=== PATIENT | male | born 1940 | race African-American/Black ===

== ENCOUNTER 2018-01-14 11:42 | Emergency (ER) | payer OTHER ==
--- NOTE | 2018-01-14 14:38 | RAD REPORT ---
EXAM DESCRIPTION: RAD - ENTEROSTOMY TUBE CHECK W/CONTR - 01/14/2018 2:06 pm CLINICAL HISTORY: Infectious/inflammation of PEG tube ostomy site, dislodged PEG tube COMPARISON: [facility] January 2017 TECHNIQUE: Supine abdomen films were obtained prior to and following repositioning of a PEG tube and retro grade injection of Gastrografin contrast material. FINDINGS: The 2 images show repositioning of the PEG tube. Following contrast injection, balloon tip of the PEG tube is in the body of the stomach. All injected contrast remains within the lumen of the stomach or proximal small bowel. IMPRESSION: Repositioning of PEG tube in good position. No leakage of the contrast.
--- NOTE | 2018-01-14 14:47 | EDPHYS ---
Physician Documentation [facility] Name: Leonardo Kumari Age: 77 yrs Sex: Male : 1940 Arrival Date: 01/14/2018 Time: 11:41 Bed 3 Private MD: ED Physician Surinder Salcedo HPI: 01/14 13:30 This 77 yrs old Black Male presents to ER via EMS with complaints of pulled PEG tube. pm1 13:30 Onset: The symptoms/episode began/occurred just prior to arrival. Associated signs and pm1 symptoms: Pertinent negatives: abdominal pain, chest pain, diarrhea, fever, shortness of breath, vomiting. The patient has experienced similar episodes in the past, multiple times. Patient accidentally pulled out his PEG tube. Ledesma catheter placed in stoma prior to arrival. Historical: - Allergies: :45 Stadol; hj :45 Versed; hj - Home Meds: 11:45 acetaminophen 650 mg Rectal supp 1 suppository every 4 hours PRN [Active]; albuterol hj sulfate 2.5 mg/0.5 mL Inhl nebu 0.5 mL every 4 hours PRN [Active]; amlodipine 5 mg tab 1 tab once daily [Active]; Aspir-81 81 mg Oral TbEC 1 tab once daily [Active]; atorvastatin 80 mg Oral tab 1 tab once daily [Active]; carvedilol 25 mg Oral tab 1 tab nightly [Active]; clopidogrel 75 mg Oral tab 1 tab once daily [Active]; Colace 100 mg Oral cap 1 cap once daily [Active]; Flexeril 10 mg Oral tab q12h prn [Active]; clonidine patch 0.2 mg transdermally every monday. Hold if SBP <100 and/or DBP <60 [Active]; clonidine HCl 0.2 mg Oral tab 1 tab 2 times per day [Active]; hydralazine 25 mg Oral tab 1 tab every 8 hours [Active]; tramadol 50 mg Oral tab 1 tab every 6 hours [Active]; multivitamin with minerals Oral 5 mL daily [Active]; Robafen 100 mg/5 mL Oral liqd 10 mL every 6 hours [Active]; - PMHx: 11:45 Allergic rhinitis; Aphasia; Dementia; Depression; Diabetes - NIDDM; DYSPHAGIA; GERD; hj High Cholesterol; Hypertension; MRSA; Paraplegia; UTI; - PSHx: 11:45 Unable to obtain; hj - Immunization history:: Adult Immunizations up to date. - Social history:: Smoking status: Patient/guardian denies using tobacco, Patient/guardian denies using alcohol. - Ebola Screening: : Patient negative for fever greater than or equal to 101.5 degrees Fahrenheit, and additional compatible Ebola Virus Disease symptoms Patient denies exposure to infectious person Patient denies travel to an Ebola-affected area in the 21 days before illness onset. ROS: 13:30 Constitutional: Negative for fever, chills, and weight loss, Eyes: Negative for injury, pm1 pain, redness, and discharge, ENT: Negative for injury, pain, and discharge, Neck: Negative for injury, pain, and swelling, Cardiovascular: Negative for chest pain, palpitations, and edema, Respiratory: Negative for shortness of breath, cough, wheezing, and pleuritic chest pain, Abdomen/GI: Negative for abdominal pain, nausea, vomiting, diarrhea, and constipation, Back: Negative for injury and pain, MS/Extremity: Negative for injury and deformity, Skin: Negative for injury, rash, and discoloration, Neuro: Negative for headache, weakness, numbness, tingling, and seizure. 13:30 Unable to obtain ROS due to baseline dementia. Exam: 13:30 Constitutional: This is a well developed, well nourished patient who is awake, alert, pm1 and in no acute distress. Head/Face: Normocephalic, atraumatic. Chest/axilla: Normal chest wall appearance and motion. Nontender with no deformity. No lesions are appreciated. Cardiovascular: Regular rate and rhythm with a normal S1 and S2. No gallops, murmurs, or rubs. No pulse deficits. Respiratory: Lungs have equal breath sounds bilaterally, clear to auscultation and percussion. No rales, rhonchi or wheezes noted. No increased work of breathing, no retractions or nasal flaring. Abdomen/GI: Soft, non-tender, with normal bowel sounds. No distension or tympany. No guarding or rebound. No evidence of tenderness throughout. Back: No spinal tenderness. No costovertebral tenderness. Full range of motion. Skin: Warm, dry with normal turgor. Normal color with no rashes, no lesions, and no evidence of cellulitis. 13:30 Musculoskeletal/extremity: Extremities: grossly normal except: the patient is contracted, in the bilateral lower extremities. Vital Signs: 11:48 BP 134 / 61; Pulse 81; Resp 18; Temp 98.3(O); Pulse Ox 96% on R/A; Weight 72.57 kg; hj Height 5 ft. 8 in. (172.72 cm); Pain 0/10; 11:48 Body Mass Index 24.33 (72.57 kg, 172.72 cm) Procedures: 13:30 G-tube placement: a 26 Syriac catheter was placed, by the ED physician, Maximo Oliva pm1 PROCUREMENT MANAGER Patient tolerated the procedure well. MDM: 11:55 Patient medically screened. pm1 14:43 Data reviewed: vital signs. Data interpreted: Pulse oximetry: on room air is 96 %. pm1 Interpretation: normal. Counseling: I had a detailed discussion with the patient and/or guardian regarding: the historical points, exam findings, and any diagnostic results supporting the discharge/admit diagnosis, radiology results, the need for outpatient follow up, to return to the emergency department if symptoms worsen or persist or if there are any questions or concerns that arise at home. 01/14 13:39 Order name: ENTEROSTOMY TUBE CHECK W/CONTR; Complete Time: 15:01 EDMS Administered Medications: No medications were administered Disposition: 01/15 16:14 Co-signature as Attending Physician, Surinder Salcedo MD I agree with the assessment and madisyn plan of care. Disposition: 01/14/18 14:46 Discharged to Home. Impression: Encounter for fitting and adjustment of other gastrointestinal appliance and device. - Condition is Stable. - Discharge Instructions: PEG, Home Care, [id number]. - Medication Reconciliation Form, Thank You Letter form. - Follow up: Emergency Department; When: As needed; Reason: Worsening of condition. Follow up: Private Physician; When: 2 - 3 days; Reason: Recheck today's complaints, Continuance of care, Re-evaluation by your physician. - Problem is new. - Symptoms have improved. Signatures: Dispatcher [employer] EDPA Surinder Salcedo MD MD cha Joaquin, Henry RN RN Maximo Roman NP PROCUREMENT MANAGER pm1 Corrections: (The following items were deleted from the chart) 01/14 13:39 13:14 Abdomen 1 View (KUB)+RAD.RAD.BRZ ordered. [facility] EDMS 17:24 14:46 01/14/2018 14:46 Discharged to Home. Impression: Encounter for fitting and hj adjustment of other gastrointestinal appliance and device. Condition is Stable. Forms are Medication Reconciliation Form, Thank You Letter, Antibiotic Education, Prescription Opioid Use. Follow up: Emergency Department; When: As needed; Reason: Worsening of condition. Follow up: Private Physician; When: 2 - 3 days; Reason: Recheck today's complaints, Continuance of care, Re-evaluation by your physician. Problem is new. Symptoms have improved. pm1
--- NOTE | 2018-01-14 14:47 | ER ---
Nurse's Notes [facility] Name: Leonardo Kumari Age: 77 yrs Sex: Male : 1940 Arrival Date: 01/14/2018 Time: 11:41 Bed 3 Private MD: Diagnosis: Encounter for fitting and adjustment of other gastrointestinal appliance and device Presentation: 01/14 11:41 Presenting complaint: EMS states: a resident of [facility], per staff, they were hj about to feed pt this AM when they saw the PEG tube out, stoma was red and raw; pt denies pain; BGL- 151;. Transition of care: patient was received from another setting of care (long-term care facility), [facility]. Onset of symptoms was January 14, 2018. Risk Assessment: Do you want to hurt yourself or someone else? Patient reports no desire to harm self or others. Initial Sepsis Screen: Does the patient meet any 2 criteria? No. Patient's initial sepsis screen is negative. Does the patient have a suspected source of infection? No. Patient's initial sepsis screen is negative. Care prior to arrival: None. 11:41 Method Of Arrival: EMS: [facility] 11:41 Acuity: [place] 4 hj Triage Assessment: 11:46 General: Appears in no apparent distress. uncomfortable, Behavior is calm, cooperative, hj appropriate for age. Pain: Denies pain. EENT: No signs and/or symptoms were reported regarding the EENT system. Neuro: Level of Consciousness is awake, alert, obeys commands, Oriented to person, place, time, situation, Appropriate for age. Cardiovascular: Capillary refill < 3 seconds Patient's skin is warm and dry. Respiratory: Airway is patent Respiratory effort is even, unlabored, Respiratory pattern is regular, symmetrical. GI: No signs and/or symptoms were reported involving the gastrointestinal system. GI: PEG tube Site reddened. : No signs and/or symptoms were reported regarding the genitourinary system. Derm: No signs and/or symptoms reported regarding the dermatologic system. Musculoskeletal: Circulation, motion, and sensation intact. BLE contracted. Historical: - Allergies: 11:45 Stadol; hj 11:45 Versed; hj - Home Meds: 11:45 acetaminophen 650 mg Rectal supp 1 suppository every 4 hours PRN [Active]; albuterol hj sulfate 2.5 mg/0.5 mL Inhl nebu 0.5 mL every 4 hours PRN [Active]; amlodipine 5 mg tab 1 tab once daily [Active]; Aspir-81 81 mg Oral TbEC 1 tab once daily [Active]; atorvastatin 80 mg Oral tab 1 tab once daily [Active]; carvedilol 25 mg Oral tab 1 tab nightly [Active]; clopidogrel 75 mg Oral tab 1 tab once daily [Active]; Colace 100 mg Oral cap 1 cap once daily [Active]; Flexeril 10 mg Oral tab q12h prn [Active]; clonidine patch 0.2 mg transdermally every monday. Hold if SBP <100 and/or DBP <60 [Active]; clonidine HCl 0.2 mg Oral tab 1 tab 2 times per day [Active]; hydralazine 25 mg Oral tab 1 tab every 8 hours [Active]; tramadol 50 mg Oral tab 1 tab every 6 hours [Active]; multivitamin with minerals Oral 5 mL daily [Active]; Robafen 100 mg/5 mL Oral liqd 10 mL every 6 hours [Active]; - PMHx: 11:45 Allergic rhinitis; Aphasia; Dementia; Depression; Diabetes - NIDDM; DYSPHAGIA; GERD; hj High Cholesterol; Hypertension; MRSA; Paraplegia; UTI; - PSHx: 11:45 Unable to obtain; hj - Immunization history:: Adult Immunizations up to date. - Social history:: Smoking status: Patient/guardian denies using tobacco, Patient/guardian denies using alcohol. - Ebola Screening: : Patient negative for fever greater than or equal to 101.5 degrees Fahrenheit, and additional compatible Ebola Virus Disease symptoms Patient denies exposure to infectious person Patient denies travel to an Ebola-affected area in the 21 days before illness onset. Screenin:45 Abuse screen: Denies threats or abuse. Denies injuries from another. Nutritional hj screening: No deficits noted. Tuberculosis screening: No symptoms or risk factors identified. Fall Risk Mental Status-. Assessment: 11:50 Reassessment: see triage for assessment;. hj 12:00 Reassessment: called paras acharya to ask for 28 kinyarwanda PEG tube;. hj 13:10 Reassessment: assisted provider in PEG tube placement;. hj 15:04 Reassessment: called Esther from [facility] for report, requested for transport hj back to [facility], RN to call back for arranged transport;. 15:19 Reassessment: Esther from [facility] called and stated "I called [facility] for transportation and they said it will be an hour and a half before they can get the patient for transport back the our facility.". Vital Signs: 11:48 BP 134 / 61; Pulse 81; Resp 18; Temp 98.3(O); Pulse Ox 96% on R/A; Weight 72.57 kg; hj Height 5 ft. 8 in. (172.72 cm); Pain 0/10; 11:48 Body Mass Index 24.33 (72.57 kg, 172.72 cm) ED Course: 11:41 Patient arrived in ED. 11:43 Triage completed. 11:47 Arm band placed on left wrist. 11:47 Patient has correct armband on for positive identification. Bed in low position. Call light in reach. Side rails up X2. 11:50 Zach Jin RN is Primary Nurse. 11:50 Maximo Oliva NP is PHCP. pm1 11:50 Surinder Salcedo MD is Attending Physician. pm1 14:04 X-ray completed. Portable x-ray completed in exam room. Patient tolerated procedure la2 well. 14:05 ENTEROSTOMY TUBE CHECK W/CONTR In Process Unspecified. EDMS Administered Medications: No medications were administered Outcome: 14:46 Discharge ordered by . pm1 17:24 Patient left the ED. Signatures: Dispatcher [employer] EDMS Zach Jin RN RN Maximo Oliva NP TRACK SUBWAY REPAIR SUPERVISOR pm1 Don Chance RN RN jl7 Janneth Nelson la2
[2018-01-14 17:28] VITALS: BP 134/61; TEMP 98.3; O2SAT 96
== END 2018-01-14 17:24 | disposition home or self-care (01) ==
LOC: ER 11:42
PROC: 0DH63UZ Insertion of Feeding Device into Stomach, Percutaneous Approach (ICD-10-PCS; principal; 2018-01-14)
DX: K94.23 Gastrostomy malfunction (principal); Y83.8 Other surgical procedures as the cause of abnormal reaction of the patient, or of later complication, without mention of misadventure at the time of the procedure; Y73.2 Prosthetic and other implants, materials and accessory gastroenterology and urology devices associated with adverse incidents; Y92.129 Unspecified place in nursing home as the place of occurrence of the external cause; Z43.1 Encounter for attention to gastrostomy; Z88.6 Allergy status to analgesic agent; Z88.8 Allergy status to other drugs, medicaments and biological substances; E11.9 Type 2 diabetes mellitus without complications; I10 Essential (primary) hypertension; E78.00 Pure hypercholesterolemia, unspecified
CPT/HCPCS: 49465; 99283

== ENCOUNTER 2018-06-17 14:12 | Emergency (ER) | payer OTHER ==
--- NOTE | 2018-06-17 15:14 | RAD REPORT ---
EXAM DESCRIPTION: RAD - ENTEROSTOMY TUBE CHECK W/CONTR - 06/17/2018 2:59 pm CLINICAL HISTORY: peg tube replacement COMPARISON: ENTEROSTOMY TUBE CHECK W/CONTR dated 01/14/2018 FINDINGS: Two abdominal radiographs were performed, pre and post injection of contrast through the P EG tube. On the post contrast injection radiographs, contrast is seen the stomach, indicating appropr iate placement. No contrast leakage identified.
--- NOTE | 2018-06-17 15:22 | ER ---
Nurse's Notes [facility] Name: Leonardo Kumari Age: 78 yrs Sex: Male : 1940 Arrival Date: 06/17/2018 Time: 14:30 Bed 27 Private MD: Diagnosis: Encounter for attention to gastrostomy Presentation: 06/17 14:39 Presenting complaint: EMS states: Pulled G-Tube out, 20 g ramon placed at [facility]. tl3 Transition of care: patient was received from another setting of care (long-term care facility). Onset of symptoms was June 17, 2018. Risk Assessment: Do you want to hurt yourself or someone else? Patient reports no desire to harm self or others. Initial Sepsis Screen: Does the patient meet any 2 criteria? No. Patient's initial sepsis screen is negative. Does the patient have a suspected source of infection? No. Patient's initial sepsis screen is negative. Care prior to arrival: None. 14:39 Method Of Arrival: EMS: [facility] tl3 14:39 Acuity: [place] 4 tl3 Triage Assessment: 14:44 General: Appears in no apparent distress. well nourished, Behavior is calm, tl3 cooperative, flat, quiet. Pain: Unable to use pain scale. EENT: No deficits noted. Neuro: No deficits noted. Cardiovascular: No deficits noted. Patient's skin is warm and dry. Respiratory: Airway is patent Respiratory effort is even, unlabored, Respiratory pattern is regular, symmetrical. GI: PEG tube clamped. Site reddened. pt pulled G-Tube out at group home, [address] : No signs and/or symptoms were reported regarding the genitourinary system. Derm: No signs and/or symptoms reported regarding the dermatologic system. Musculoskeletal: per pt norm, contracted in bilateral arms and legs. Historical: - Allergies: 14:44 Stadol; tl3 14:44 Versed; tl3 - Home Meds: 14:44 acetaminophen 650 mg Rectal supp 1 suppository every 4 hours PRN [Active]; albuterol tl3 sulfate 2.5 mg/0.5 mL Inhl nebu 0.5 mL every 4 hours PRN [Active]; amlodipine 5 mg tab 1 tab once daily [Active]; Aspir-81 81 mg Oral TbEC 1 tab once daily [Active]; atorvastatin 80 mg Oral tab 1 tab once daily [Active]; carvedilol 25 mg Oral tab 1 tab nightly [Active]; clonidine HCl 0.2 mg Oral tab 1 tab 2 times per day [Active]; clonidine patch 0.2 mg transdermally every monday. Hold if SBP <100 and/or DBP <60 [Active]; clopidogrel 75 mg Oral tab 1 tab once daily [Active]; Colace 100 mg Oral cap 1 cap once daily [Active]; Flexeril 10 mg Oral tab q12h prn [Active]; hydralazine 25 mg Oral tab 1 tab every 8 hours [Active]; multivitamin with minerals Oral 5 mL daily [Active]; Robafen 100 mg/5 mL Oral liqd 10 mL every 6 hours [Active]; tramadol 50 mg Oral tab 1 tab every 6 hours [Active]; - PMHx: 14:44 Allergic rhinitis; Aphasia; Dementia; Depression; Diabetes - NIDDM; DYSPHAGIA; GERD; tl3 High Cholesterol; Hypertension; MRSA; Paraplegia; UTI; - Immunization history:: Adult Immunizations up to date. - Social history:: Smoking status: unknown. - Ebola Screening: : No symptoms or risks identified at this time. Screenin:48 Abuse screen: Denies threats or abuse. Nutritional screening: No deficits noted. tl3 Tuberculosis screening: No symptoms or risk factors identified. Fall Risk Secondary diagnosis (15 points) impaired mobility, CVA. Assessment: 14:48 Reassessment: No changes from previously documented assessment. tl3 16:23 Reassessment: Patient appears in no apparent distress at this time. No changes from tl3 previously documented assessment. Patient and/or family updated on plan of care and expected duration. Pain level reassessed. Patient is alert, oriented x 3, equal unlabored respirations, skin warm/dry/pink. EMS here for transport back to facility. Vital Signs: 14:44 BP 137 / 59; Pulse 85; Resp 18; Temp 98(O); Pulse Ox 98% on R/A; tl3 16:23 BP 133 / 57; Pulse 80; Resp 18; Pulse Ox 100% on R/A; tl3 ED Course: 14:30 Patient arrived in ED. cp 14:30 Surinder Jeffries PA is PHCP. cp 14:30 Surinder Salcedo MD is Attending Physician. cp 14:39 Barby Swan, RN is Primary Nurse. tl3 14:41 Triage completed. tl3 14:44 Arm band placed on right wrist. tl3 14:48 Patient has correct armband on for positive identification. Bed in low position. Call tl3 light in reach. Side rails up X2. Pulse ox on. NIBP on. 14:48 No provider procedures requiring assistance completed. X-ray(s) taken. 26 fr g-tube tl3 replaced without difficulty, ballon inflated with 20ml NS per instructions, pt tolerated well. 14:58 X-ray completed. Portable x-ray completed in exam room. Patient tolerated procedure ls3 well. 14:59 PEG Tube Check w/contrast In Process Unspecified. EDMS 16:23 IV discontinued, intact, bleeding controlled, No redness/swelling at site. Pressure tl3 dressing applied. Administered Medications: No medications were administered Outcome: 15:22 Discharge ordered by MD. cp 16:23 Discharged to [facility]. Transfer form completed. tl3 16:23 Discharged to [facility]. multiple attempts to call facility, no one would answer phone 16:23 Condition: stable 16:26 Discharge instructions given to EMS. tl3 16:27 Patient left the ED. tl3 Signatures: Dispatcher [employer] EDMS Surinder Jeffries PA PA cp Lowrey, Tammy, RN RN tl3 Delma Short ls3
--- NOTE | 2018-06-17 15:22 | EDPHYS ---
Physician Documentation [facility] Name: Leonardo Kumari Age: 78 yrs Sex: Male : 1940 Arrival Date: 06/17/2018 Time: 14:30 Bed 27 Private MD: ED Physician Surinder Salcedo HPI: 06/17 15:00 This 78 yrs old Black Male presents to ER via EMS with complaints of PEG tube cp replacement. 15:00 The patient represents for recheck after previously being evaluated for PEG tube needs cp replacement. Historical: - Allergies: 14:44 Stadol; tl3 14:44 Versed; tl3 - Home Meds: 14:44 acetaminophen 650 mg Rectal supp 1 suppository every 4 hours PRN [Active]; albuterol tl3 sulfate 2.5 mg/0.5 mL Inhl nebu 0.5 mL every 4 hours PRN [Active]; amlodipine 5 mg tab 1 tab once daily [Active]; Aspir-81 81 mg Oral TbEC 1 tab once daily [Active]; atorvastatin 80 mg Oral tab 1 tab once daily [Active]; carvedilol 25 mg Oral tab 1 tab nightly [Active]; clonidine HCl 0.2 mg Oral tab 1 tab 2 times per day [Active]; clonidine patch 0.2 mg transdermally every monday. Hold if SBP <100 and/or DBP <60 [Active]; clopidogrel 75 mg Oral tab 1 tab once daily [Active]; Colace 100 mg Oral cap 1 cap once daily [Active]; Flexeril 10 mg Oral tab q12h prn [Active]; hydralazine 25 mg Oral tab 1 tab every 8 hours [Active]; multivitamin with minerals Oral 5 mL daily [Active]; Robafen 100 mg/5 mL Oral liqd 10 mL every 6 hours [Active]; tramadol 50 mg Oral tab 1 tab every 6 hours [Active]; - PMHx: 14:44 Allergic rhinitis; Aphasia; Dementia; Depression; Diabetes - NIDDM; DYSPHAGIA; GERD; tl3 High Cholesterol; Hypertension; MRSA; Paraplegia; UTI; - Immunization history:: Adult Immunizations up to date. - Social history:: Smoking status: unknown. - Ebola Screening: : No symptoms or risks identified at this time. ROS: 15:05 Unable to obtain ROS due to baseline dementia. cp Exam: 15:12 Constitutional: The patient appears in no acute distress, alert, awake, non-toxic, well cp developed, frail. 15:12 Head/Face: Normocephalic, atraumatic. cp 15:12 Eyes: Periorbital structures: appear normal, Conjunctiva: normal, Lids and lashes: appear normal, bilaterally. 15:12 ENT: External ear(s): are unremarkable, Nose: is normal, Mouth: Lips: moist, Oral mucosa: moist. 15:12 Chest/axilla: Inspection: normal, Palpation: is normal, no crepitus, no tenderness. 15:12 Cardiovascular: Rate: normal, Rhythm: regular. 15:12 Respiratory: the patient does not display signs of respiratory distress, Respirations: normal, no use of accessory muscles, no retractions, no splinting, no tachypnea, Breath sounds: are clear throughout. 15:12 Abdomen/GI: Inspection: PEG tube noted LUQ, Bowel sounds: active, all quadrants, Palpation: abdomen is soft and non-tender, in all quadrants, rebound tenderness, is not appreciated, involuntary guarding, is not appreciated. 15:12 Neuro: Orientation: no acute changes, Mentation: no acute changes, Motor: the patient is contracted. Vital Signs: 14:44 BP 137 / 59; Pulse 85; Resp 18; Temp 98(O); Pulse Ox 98% on R/A; tl3 16:23 BP 133 / 57; Pulse 80; Resp 18; Pulse Ox 100% on R/A; tl3 MDM: 15:21 Data reviewed: vital signs, nurses notes, radiologic studies, plain films. cp 15:21 Test interpretation: by ED physician or midlevel provider: plain radiologic studies. cp Response to treatment: the patient's symptoms have markedly improved after treatment, VSS. PEG tube replaced successfully. Will discharge to home for continued monitoring. 15:22 Patient medically screened. cp 06/17 14:31 Order name: PEG Tube Check w/contrast; Complete Time: 15:29 cp 06/17 15:29 Interpretation: Report reviewed. cp Administered Medications: No medications were administered Disposition: 16:30 Chart complete. cp 06/18 08:26 Co-signature as Attending Physician, Surinder Salcedo MD I agree with the assessment and madisyn plan of care. Disposition: 06/17/18 15:22 Discharged to Home. Impression: Encounter for attention to gastrostomy. - Condition is Stable. - Discharge Instructions: Gastrostomy Tube Replacement, Gastrostomy Tube Home Guide, Adult. - Medication Reconciliation Form, Thank You Letter, Antibiotic Education, Prescription Opioid Use form. - Follow up: Emergency Department; When: As needed; Reason: Worsening of condition. - Problem is new. - Symptoms have improved. Signatures: Dispatcher [employer] EDCA Surinder Salcedo MD MD cha Page, Corey, PA PA Barby Sanchez RN RN tl3 Corrections: (The following items were deleted from the chart) 06/17 16:27 15:22 06/17/2018 15:22 Discharged to Home. Impression: Encounter for attention to tl3 gastrostomy. Condition is Stable. Forms are Medication Reconciliation Form, Thank You Letter, Antibiotic Education, Prescription Opioid Use. Follow up: Emergency Department; When: As needed; Reason: Worsening of condition. Problem is new. Symptoms have improved. cp
[2018-06-17 17:08] VITALS: TEMP 98
[2018-06-17 17:09] VITALS: BP 133/57; O2SAT 100
== END 2018-06-17 16:27 | disposition home or self-care (01) ==
LOC: ER 14:12
PROC: 0D20XYZ Change Other Device in Upper Intestinal Tract, External Approach (ICD-10-PCS; principal; 2018-06-17)
DX: Z43.1 Encounter for attention to gastrostomy (principal); G82.20 Paraplegia, unspecified; E78.00 Pure hypercholesterolemia, unspecified; E11.9 Type 2 diabetes mellitus without complications; I10 Essential (primary) hypertension; K21.9 Gastro-esophageal reflux disease without esophagitis; F03.90 Unspecified dementia, unspecified severity, without behavioral disturbance, psychotic disturbance, mood disturbance, and anxiety; F32.9 Major depressive disorder, single episode, unspecified; Z79.82 Long term (current) use of aspirin; Z79.891 Long term (current) use of opiate analgesic; Z79.899 Other long term (current) drug therapy; Z86.14 Personal history of Methicillin resistant Staphylococcus aureus infection
CPT/HCPCS: 49465; 99283

== ENCOUNTER 2018-07-11 15:07 | Emergency (ER) | payer OTHER ==
[2018-07-11] MEDS ORDERED: NA CHLORIDE 0.9% 2,000 ML ONE (16:10)
[2018-07-11 16:13] LABS: Absolute Lymphocytes (CBC) 0.6 K/uL (0.7-4.9); Absolute Monocytes 1.8 K/uL (0.1-1.3); Absolute Neutrophil 16.6 K/uL (1.8-8.0); Basophils % 0.2 % (0-1.3); Hematocrit 26.8 % (39.6-49.0); Lymphocytes % 3.2 % (15.3-44.8); MCH 28.3 pg (27.0-35.0); MCV 86.1 fL (80-100); MPV 8.5 fL (7.6-11.3); Monocytes % 9.5 % (3.3-12.3); RBC Red Blood Cell Count 3.12 M/uL (4.33-5.43)
[2018-07-11 16:16] LABS: Protime INR 1.22
[2018-07-11 16:27] LABS: Albumin 1.7 g/dL (3.4-5.0); Bilirubin Direct 0.1 mg/dL (0-0.2); Bilirubin Total 0.3 mg/dL (0.2-1.0); Potassium 4.4 mmol/L (3.5-5.1); Protein, Total 8.1 g/dL (6.4-8.2)
--- NOTE | 2018-07-11 16:45 | RAD REPORT ---
EXAM DESCRIPTION: RAD - Chest Single View - 07/11/2018 4:29 pm CLINICAL HISTORY: Fever COMPARISON: April 2015 TECHNIQUE: AP portable chest image was obtained 1624 hours . FINDINGS: No focal consolidation. Supine imaging and shallow inspiration accentuate lung markings. M ild viral infiltrate could be obscured in this setting. A mild failure or volume overload could also be obscured. Heart size is normal. No abnormal vascular engorgement. Trachea is midline. No measurabl e pleural effusion and no pneumothorax. No acute bony abnormality seen. No acute aortic findings susp ected. IMPRESSION: Limited supine portable imaging shows no focal consolidation to suspect a bacterial pneu monia. Interstitial markings are prominent and a minimal interstitial edema or infiltrate could be masked.
--- NOTE | 2018-07-11 17:30 | RAD REPORT ---
EXAM DESCRIPTION: CT - Abdomen Pelvis Wo Contrast - 07/11/2018 5:08 pm CLINICAL HISTORY: Abdominal pain, fever, leakage around PEG tube COMPARISON: CT imaging December 2016 TECHNIQUE: Axial [address] imaging of the abdomen and pelvis was performed without IV contrast. No IV contrast was given because of allergy, abnormal renal function, patient refusal or physician re quest. No oral contrast given. All CT scans are performed using dose optimization technique as appropriate and may include automated exposure control or mA/KV adjustment according to patient size. FINDINGS: No suspicious findings in the lung bases. Partially imaged mild bronchiectasis changes are present. No pericardial thickening or effusion. The liver, spleen and pancreas show no suspicious findings on non-contrast imaging. Gallbladder and b iliary tree are also without suspicious finding. No hydronephrosis or suspicious renal mass. No significant adrenal finding. Isodense renal masses an d pyelonephritis cannot be excluded in the absence of IV contrast. The urinary bladder is without sig nificant finding. Mild prominence of the prostate gland noted. PEG tube is in place with the balloon tip at the antrum of the stomach. Along the course of the PEG t ube there is no extraluminal air. No abscess or drainable fluid collection identified. No free air, f ree fluid or inflammatory stranding. Punctate air in the subcutaneous fat of the abdomen is presumed to be part of a medication injection. Moderate stool volume from cecum through sigmoid colon. There is a large amount of stool dilating the rectum. A colon mass is not identified. Hyperdensity of the colon content is presumed to be medicati on. No oral contrast was administered. Vascular calcifications are present. Prominent disc and bony degenerative changes are present. There advanced SI joint degenerative change present. 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 Small soft tissue mass in the left inguinal canal has not change from c omparison. Fluid retention pattern seen in the subcutaneous fatty tissues of the pelvis. IMPRESSION: PEG tube is in place with the balloon tip inflated in the antrum of the stomach. No acut e gastric finding seen. Along the course of the PEG tube, there is no extraluminal air, free fluid or abscess. No bowel obstruction, free air or surgically emergent finding. Large stool volume dilating the rectum with an overall prominent stool volume filling the remainder o f the colon. Fluid retention in the subcutaneous fatty tissues.
[2018-07-11] MEDS ORDERED: CEFOXITIN/SWI 1gm 1 GM/10 ML SYR ONE (17:42)
[2018-07-11] MEDS ORDERED: METRONIDAZOLE 500mg IVPB 500 MG/100 ML BAG IV ONE (17:42)
[2018-07-11] MEDS ORDERED: PANTOPRAZOLE INJ 80 MG in NA CHLORIDE 0.9% 250 ML IV SCH (18:00)
[2018-07-11] MEDS ORDERED: PANTOPRAZOLE 40 MG INJ ONE (18:09)
--- NOTE | 2018-07-11 18:35 | EDPHYS ---
Physician Documentation [facility] Name: Leonardo Kumari Age: 78 yrs Sex: Male : 1940 Arrival Date: 07/11/2018 Time: 15:11 Bed 30 Private MD: ED Physician Jose J Groves HPI: 07/11 17:53 This 78 yrs old Black Male presents to ER via EMS with complaints of leaking around PEG jr8 tube. 17:53 Family requested to have patient seen in ED for continued leaking around PEG tube. jr8 Stated that it had been small amount for few days but getting worse. Patient debilitated and at assisted. Saw GI for leaking with no acute finding originally. Upon initial examination now having black tarry substance with maceration and erythema around site . Severity of symptoms: At their worst the symptoms were moderate in the emergency department the symptoms are unchanged. It is unknown whether or not the patient has had similar symptoms in the past. The patient has not recently seen a physician. Historical: - Allergies: 15:17 Stadol; ss 15:17 Versed; ss - PMHx: 15:17 Allergic rhinitis; Aphasia; Dementia; Depression; Diabetes - NIDDM; DYSPHAGIA; GERD; ss High Cholesterol; Hypertension; MRSA; Paraplegia; UTI; - Immunization history:: Adult Immunizations unknown. - Social history:: Smoking status: Patient/guardian denies using tobacco. - Ebola Screening: : Patient negative for fever greater than or equal to 101.5 degrees Fahrenheit, and additional compatible Ebola Virus Disease symptoms Patient denies exposure to infectious person Patient denies travel to an Ebola-affected area in the 21 days before illness onset. ROS: 18:30 Constitutional: Positive for fever. jr8 18:30 Abdomen/GI: Positive for abdominal pain. 18:30 All other systems are negative. 18:35 Constitutional: Negative for chills, and weight loss. jr8 Exam: 18:30 Eyes: Pupils equal round and reactive to light, extra-ocular motions intact. Lids and jr8 lashes normal. Conjunctiva and sclera are non-icteric and not injected. Cornea within normal limits. Periorbital areas with no swelling, redness, or edema. ENT: Nares patent. No nasal discharge, no septal abnormalities noted. Tympanic membranes are normal and external auditory canals are clear. Oropharynx with no redness, swelling, or masses, exudates, or evidence of obstruction, uvula midline. Mucous membranes moist. Neck: Trachea midline, no thyromegaly or masses palpated, and no cervical lymphadenopathy. Supple, full range of motion without nuchal rigidity, or vertebral point tenderness. No Meningismus. Cardiovascular: Regular rate and rhythm with a normal S1 and S2. No gallops, murmurs, or rubs. Normal PMI, no JVD. No pulse deficits. 2+ lower extremity edema present bilaterally Respiratory: Lungs have equal breath sounds bilaterally, clear to auscultation and percussion. No rales, rhonchi or wheezes noted. No increased work of breathing, no retractions or nasal flaring. Back: No spinal tenderness. No costovertebral tenderness. Full range of motion. Skin: Warm, dry with normal turgor. Normal color with no rashes, no lesions, and no evidence of cellulitis. MS/ Extremity: Pulses equal, no cyanosis. Neurovascular intact. Contracted 18:30 Abdomen/GI: Inspection: PEG tube site present to gastric region. Red and macerated around site. Moderate amount of black tarry substance seeping around gastrostomy tube . 18:30 Neuro: Orientation: to person, place, Mentation: slow to respond, Memory: unable to test, Cranial nerves: CN I not tested, CN II- XII are normal as tested, extraocular movements are intact, Speech is dysarthric, slowed, slurred, Motor: the patient is contracted, Sensation: no obvious gross deficits, Gait: not tested. seizure activity, is not displayed by the patient, Abnormal movements: there are no abnormal movements. Vital Signs: 15:17 BP 141 / 79; Pulse 100; Resp 22; Temp 100.0(A); Pulse Ox 96% on R/A; Weight 63.5 kg; ss Height 66 in. (167.64 cm); Pain 0/10; 16:45 BP 149 / 76; Pulse 88; Resp 18; Pulse Ox 95% on R/A; aj1 17:44 BP 151 / 70; Pulse 94; Resp 18; Pulse Ox 96% on R/A; aj1 19:04 BP 147 / 64; Pulse 93; Resp 16; Temp 97.5; Pulse Ox 98% on R/A; la1 15:17 Body Mass Index 22.60 (63.50 kg, 167.64 cm) ss MDM: 15:21 Patient medically screened. jr8 17:38 ED course: Dr. Cornell Consulted and is going out of town. Deferred to Dr. Winchester who jr8 is contact clerk today . 17:53 ED course: Dr. Winchester is going out of town as well and will not be able to consult. . jr8 18:30 Data reviewed: vital signs, nurses notes, lab test result(s), EKG, radiologic studies, jr CT scan, plain films. Data interpreted: Pulse oximetry: on room air is 96 %. Interpretation: normal. Counseling: I had a detailed discussion with the patient and/or guardian regarding: the historical points, exam findings, and any diagnostic results supporting the discharge/admit diagnosis, lab results, radiology results, the need to transfer to another facility, for higher level of care, [facility] does not immediately have the required specialist. ED course: [facility] accepted patient. GI consulted there as well and will see patient . 07/11 15:35 Order name: Basic Metabolic Panel; Complete Time: 16:47 [facility] 07/11 15:35 Order name: Blood Culture Adult (2) [facility] 07/11 15:35 Order name: CBC with Diff 07/11 15:35 Order name: Lactate; Complete Time: 16:47 8 07/11 15:35 Order name: LFT's; Complete Time: 16:47 [facility] 07/11 15:35 Order name: Lipase; Complete Time: 16:47 07/11 15:35 Order name: Procalcitonin; Complete Time: 16:47 8 07/11 15:35 Order name: Protime (+inr); Complete Time: 16:47 [facility] 07/11 15:35 Order name: Ptt, Activated; Complete Time: 16:47 [facility] 07/11 15:35 Order name: Chest Single View XRAY; Complete Time: 16:47 8 07/11 16:00 Order name: Gastric Occult Blood; Complete Time: 16:47 em 07/11 17:33 Order name: Urine Microscopic Only; Complete Time: 19:40 jr8 07/11 18:55 Order name: Urine Dipstick--Ancillary (enter results) bd 07/11 19:39 Order name: Urine Culture EDMS 07/11 15:35 Order name: Accucheck; Complete Time: 16:14 [facility] 07/11 15:35 Order name: Cardiac monitoring; Complete Time: 16:14 [facility] 07/11 15:35 Order name: EKG - Nurse/Tech; Complete Time: 17:09 [facility] 07/11 15:35 Order name: IV Saline Lock - Large Bore; Complete Time: 16:14 [facility] 07/11 15:35 Order name: Labs collected and sent; Complete Time: 16:14 [facility] 07/11 15:35 Order name: O2 Per Protocol; Complete Time: 16:14 [facility] 07/11 15:35 Order name: O2 Sat Monitoring; Complete Time: 16:14 [facility] 07/11 15:35 Order name: Urine Dipstick-Ancillary (obtain specimen); Complete Time: 18:52 [facility] 07/11 16:48 Order name: CT Abd/Pelvis - Without Cont; Complete Time: 17:32 [facility] 07/11 17:49 Order name: EKG Electrocardiogram [facility] 07/11 17:33 Order name: Straight Cath - Urine; Complete Time: 18:52 [facility] Administered Medications: 16:04 Drug: NS 0.9% (30 ml/kg) 30 ml/kg Route: IV; Rate: bolus; Site: right upper arm; aj1 18:04 Drug: ProTONIX 40 mg Route: IVP; Site: right upper arm; aj1 19:02 Follow up: Response: No adverse reaction ms1 18:05 Drug: Mefoxin 1 grams Route: IVPB; Infused Over: 30 mins; Site: right upper arm; aj1 19:03 Follow up: IV Status: Completed infusion la1 18:05 Drug: Flagyl 500 mg Volume: 100 ml; Route: IVPB; Rate: 200 ml/hr; Infused Over: 30 aj1 mins; Site: right upper arm; 19:03 Follow up: IV Status: Completed infusion la1 18:16 Drug: ProTONIX 8 mg/hr Route: IV; Rate: 25 ml/hr; Site: left hand; la1 19:02 Follow up: IV Status: Infusion continued upon transfer la1 19:03 Drug: vancoMYCIN 1 grams Route: IVPB; Infused Over: 2 hrs; Site: right upper arm; la1 19:03 Follow up: IV Status: Infusion continued upon transfer [facility] Point of Care Testing: Blood Glucose: 15:53 Blood Glucose: 174 mg/dL; la1 Ranges: Critical Glucose Levels:Adult <50 mg/dl or >400 mg/dl <40 mg/dl or >180 mg/dl Disposition: 07/12 07:41 Co-signature as Attending Physician, Jose J Groves MD I agree with the assessment and kdr plan of care. Disposition: 07/11/18 18:35 Transfer ordered to [facility]. Diagnosis are Gastrointestinal hemorrhage, unspecified, Anemia , Cellulitis of abdominal wall, Urinary tract infection, site not specified. - Reason for transfer: Higher level of care. - Accepting physician is [facility]. - Condition is Fair. - Problem is new. - Symptoms are unchanged. Signatures: Dispatcher [employer] EDMS Elsy Coughlin, RN RN aj1 Jose J Groves MD MD kdr Helen Rosales RN RN ss Roszak, Josh, PA PA jr8 Deon Payan RN RN la1 Tenzin Choudhury RN RN rv Corrections: (The following items were deleted from the chart) 07/11 19:40 18:35 07/11/2018 18:35 Transfer ordered to [facility]. Diagnosis is jr8 Gastrointestinal hemorrhage, unspecified; Anemia ; Cellulitis of abdominal wall. Reason for transfer: Higher level of care. Accepting physician is [facility]. Condition is Fair. Problem is new. Symptoms are unchanged. jr8 20:45 19:40 07/11/2018 18:35 Transfer ordered to [facility]. Diagnosis is rv Gastrointestinal hemorrhage, unspecified; Anemia ; Cellulitis of abdominal wall; Urinary tract infection, site not specified. Reason for transfer: Higher level of care. Accepting physician is [facility]. Condition is Fair. Problem is new. Symptoms are unchanged. jr8
--- NOTE | 2018-07-11 18:35 | ER ---
Nurse's Notes [facility] Name: Leonardo Kumari Age: 78 yrs Sex: Male : 1940 Arrival Date: 07/11/2018 Time: 15:11 Bed 30 Private MD: Diagnosis: Gastrointestinal hemorrhage, unspecified;Anemia ;Cellulitis of abdominal wall;Urinary tract infection, site not specified Presentation: 07/11 15:11 Presenting complaint: [facility] reports that GI leakage has been observed ss around PEG tube insertion site x >1 week. Pt was seen at Dr. Durant's office last week and was told just to keep the tube flushed with the skin. Drainage has been increasing and is worse today. On arrival to ER, leakage seems to be coffee ground in color and consistency, small amount observed on tongue as well. Pt denies pain. Transition of care: [facility]. Onset of symptoms is unknown. Risk Assessment: Do you want to hurt yourself or someone else? Patient reports no desire to harm self or others. Initial Sepsis Screen:. Care prior to arrival: None. 15:11 Method Of Arrival: EMS: [facility] 15:11 Acuity: [place] 3 ss 20:45 Initial Sepsis Screen: Does the patient meet any 2 criteria? No. Patient's initial rv sepsis screen is negative. Does the patient have a suspected source of infection? No. Patient's initial sepsis screen is negative. Historical: - Allergies: 15:17 Stadol; ss 15:17 Versed; ss - PMHx: 15:17 Allergic rhinitis; Aphasia; Dementia; Depression; Diabetes - NIDDM; DYSPHAGIA; GERD; ss High Cholesterol; Hypertension; MRSA; Paraplegia; UTI; - Immunization history:: Adult Immunizations unknown. - Social history:: Smoking status: Patient/guardian denies using tobacco. - Ebola Screening: : Patient negative for fever greater than or equal to 101.5 degrees Fahrenheit, and additional compatible Ebola Virus Disease symptoms Patient denies exposure to infectious person Patient denies travel to an Ebola-affected area in the 21 days before illness onset. Screenin:45 Abuse screen: Denies threats or abuse. Denies injuries from another. Nutritional aj1 screening: No deficits noted. Tuberculosis screening: No symptoms or risk factors identified. 20:45 Fall Risk None identified. rv Assessment: 15:45 General: Appears in no apparent distress. uncomfortable, Behavior is restless. Pain: aj1 Denies pain. Neuro: Level of Consciousness is awake, alert. Cardiovascular: Patient's skin is warm and dry. Respiratory: Airway is patent Respiratory effort is even, unlabored, Respiratory pattern is regular, symmetrical. GI: Abdomen is non-distended, PEG tube in place, Site with drainage. : No signs and/or symptoms were reported regarding the genitourinary system. EENT: No signs and/or symptoms were reported regarding the EENT system. Derm: Skin is moist, Skin is pale. Musculoskeletal: Range of motion: limited in all extremities. 16:45 Reassessment: Patient appears in no apparent distress at this time. No changes from aj1 previously documented assessment. Patient and/or family updated on plan of care and expected duration. Pain level reassessed. 16:45 Neuro: Level of Consciousness is awake, alert. Cardiovascular:. Respiratory: Airway is aj1 patent Respiratory effort is even, unlabored, Respiratory pattern is regular, symmetrical. 17:45 Reassessment: Patient appears in no apparent distress at this time. No changes from aj1 previously documented assessment. Patient and/or family updated on plan of care and expected duration. Pain level reassessed. Neuro: Level of Consciousness is awake, alert. Cardiovascular: Patient's skin is warm and dry. Respiratory: Airway is patent Respiratory effort is even, unlabored, Respiratory pattern is regular, symmetrical. 18:45 Reassessment: Patient appears in no apparent distress at this time. No changes from aj1 previously documented assessment. Patient and/or family updated on plan of care and expected duration. Pain level reassessed. Neuro: Level of Consciousness is awake, alert. Cardiovascular: Patient's skin is warm and dry. Respiratory: Airway is patent Respiratory effort is even, unlabored, Respiratory pattern is regular, symmetrical. Vital Signs: 15:17 BP 141 / 79; Pulse 100; Resp 22; Temp 100.0(A); Pulse Ox 96% on R/A; Weight 63.5 kg; ss Height 66 in. (167.64 cm); Pain 0/10; 16:45 BP 149 / 76; Pulse 88; Resp 18; Pulse Ox 95% on R/A; aj1 17:44 BP 151 / 70; Pulse 94; Resp 18; Pulse Ox 96% on R/A; aj1 19:04 BP 147 / 64; Pulse 93; Resp 16; Temp 97.5; Pulse Ox 98% on R/A; la1 15:17 Body Mass Index 22.60 (63.50 kg, 167.64 cm) ED Course: 15:11 Patient arrived in ED. ss 15:16 Triage completed. ss 15:17 Arm band placed on right wrist. ss 15:21 [facility] jr8 15:21 Jose J Groves MD is Attending Physician. jr8 15:41 Elsy Coughlin RN is Primary Nurse. aj1 15:45 Patient has correct armband on for positive identification. Placed in gown. Bed in low aj1 position. Call light in reach. Side rails up X2. administrative support assistant on. Pulse ox on. NIBP on. 15:45 No provider procedures requiring assistance completed. aj1 15:53 Inserted saline lock: 20 gauge in right upper arm, using aseptic technique. Blood la1 collected. 16:30 Chest Single View XRAY In Process Unspecified. EDMS 16:[address] via stretcher. nj 17:08 EKG done, by diesel lube tech. reviewed by Alexis BILLY. sm3 17:09 CT Abd/Pelvis - Without Cont In Process Unspecified. EDMS 18:15 Inserted saline lock: 22 gauge in left hand, using aseptic technique. la1 18:40 Urine collected: straight cath specimen, clear, elizabeth colored, Amount Returned: 350mL. jp3 18:52 Urine Microscopic Only Sent. jp3 20:45 Patient transferred, IV remains in place. intact. rv Administered Medications: 16:04 Drug: NS 0.9% (30 ml/kg) 30 ml/kg Route: IV; Rate: bolus; Site: right upper arm; aj1 18:04 Drug: ProTONIX 40 mg Route: IVP; Site: right upper arm; aj1 19:02 Follow up: Response: No adverse reaction la1 18:05 Drug: Mefoxin 1 grams Route: IVPB; Infused Over: 30 mins; Site: right upper arm; aj1 19:03 Follow up: IV Status: Completed infusion la1 18:05 Drug: Flagyl 500 mg Volume: 100 ml; Route: IVPB; Rate: 200 ml/hr; Infused Over: 30 aj1 mins; Site: right upper arm; 19:03 Follow up: IV Status: Completed infusion la1 18:16 Drug: ProTONIX 8 mg/hr Route: IV; Rate: 25 ml/hr; Site: left hand; la1 19:02 Follow up: IV Status: Infusion continued upon transfer la1 19:03 Drug: vancoMYCIN 1 grams Route: IVPB; Infused Over: 2 hrs; Site: right upper arm; la1 19:03 Follow up: IV Status: Infusion continued upon transfer la1 Point of Care Testing: Blood Glucose: 15:53 Blood Glucose: 174 mg/dL; la1 Ranges: Outcome: 18:35 ER care complete, transfer ordered by MD. [place] 20:44 Transferred by ground EMS to [facility], Transfer form completed. rv X-rays sent w/ patient. 20:44 Condition: good 20:44 Instructed on the need for transfer. 20:45 Patient left the ED. rv Signatures: Dispatcher [employer] EDMS Elsy Coughlin RN RN aj1 Helen Rosales RN RN ss Roszak, Josh, PA PA jr8 Deon Payan RN RN la1 Tien Hussein Shakira 3 Tenzin Choudhury RN RN Serafin Cook jp3
[2018-07-11] MEDS ORDERED: VANCOMYCIN 1 GM/250 ML BAG ONE (19:08)
[2018-07-11 19:36] LABS: Urine Blood NEGATIVE (NEG); Urine Glucose NEGATIVE (NEG); Urine Protein 3+ (NEG); Urine pH 6.5 (5.0-7.0)
[2018-07-11 19:37] LABS: Urine Amorphous Sediment 1+ /HPF (NONE SEEN); Urine Bacteria >50 /HPF (NONE SEEN); Urine Culture Reflex Order REFLEXED; Urine RBC <5 /HPF (NONE SEEN)
[2018-07-11 21:15] LABS: Anisocytosis 1+; Blood Morphology Comment NOT SEEN (NOT SEEN); Platelet Estimate ADEQ
[2018-07-11 21:24] VITALS: BP 147/64; TEMP 97.5; O2SAT 98
--- NOTE | 2018-07-12 06:00 | EKG ---
Test Date: 2018-07-11 Test Time: 16:55:22 Layout Artist: BABAK MEASUREMENT RESULTS: Intervals: Rate: 98 WI: 138 QRSD: 78 QT: 350 QTc: 446 [place]: P: 76 WI: 138 QRS: 26 T: 13 INTERPRETIVE STATEMENTS: Sinus rhythm with premature supraventricular complexes Cannot rule out Anterior infarct, age undetermined Abnormal ECG Compared to ECG 02/18/2017 13:37:03 Possible myocardial infarct finding now present Electronically Signed On 07-12-18 05:59:36 MANAGER [employer]OKER by Daniel Cameron
== END 2018-07-11 20:45 | disposition short-term general hospital (02) ==
LOC: ER 15:07
DX: K92.2 Gastrointestinal hemorrhage, unspecified (principal); D64.9 Anemia, unspecified; L03.311 Cellulitis of abdominal wall; N39.0 Urinary tract infection, site not specified; I10 Essential (primary) hypertension; F03.90 Unspecified dementia, unspecified severity, without behavioral disturbance, psychotic disturbance, mood disturbance, and anxiety; G82.20 Paraplegia, unspecified; Z88.5 Allergy status to narcotic agent; Z88.8 Allergy status to other drugs, medicaments and biological substances
CPT/HCPCS: 36415; 71045; 74176; 80048; 80076; 82271; 83605; 83690; 83986; 84145; 85025; 85610; 85730; 87040 ×2; 87086; 87088; 93005; C9113 ×2; J3370; J7030; 81003; 81015

== ENCOUNTER 2018-08-10 09:07 | Emergency (ER) | payer OTHER ==
--- OUTSIDE RECORDS SUMMARY | 2018-08-10 09:09 | XMS REPORT | Clinical Summary ---
:1940 Author Organization [facility] Address [address] [place] [address] Care Team Providers Name Role Phone Unavailable Primary Care Provider Unavailable Allergies Active Allergy Reactions Severity Noted Date Comments Butorphanol Tartrate 07/12/2018 Midazolam 07/12/2018 Medications Medication Sig Dispensed Refills Start Date End Date Status ascorbic acid, vitamin Take 1 tablet 30 tablet 0 07/15/2018 08/14/2018 Active C, (VITAMIN C) 500 MG (500 mg total) tablet by mouth daily for 30 days. atorvastatin (LIPITOR) Take 1 tablet 30 tablet 0 07/15/2018 08/14/2018 Active 80 MG tablet (80 mg total) by mouth nightly for 30 days. PARoxetine (PAXIL) 10 Take 1 tablet 30 tablet 0 07/15/2018 08/14/2018 Active MG tablet (10 mg total) by mouth daily for 30 days. zinc sulfate (ZINCATE) Take 1 capsule 30 capsule 0 07/15/2018 08/14/2018 Active 220 (50) mg capsule (220 mg total) by mouth daily for 30 days. pantoprazole Take 1 tablet 30 tablet 0 07/15/2018 08/14/2018 Active (PROTONIX) 40 MG (40 mg total) tablet by mouth daily for 30 days. aspirin 81 MG chewable Take 1 tablet 30 tablet 0 07/15/2018 08/14/2018 Active tablet (81 mg total) by mouth daily for 30 days. cyclobenzaprine Take 1 tablet 30 tablet 0 07/15/2018 07/25/2018 (FLEXERIL) 10 MG (10 mg total) tablet by mouth 3 (three) times daily as needed for Muscle spasms for up to 10 days. doxycycline (MONODOX) Take 1 capsule 14 capsule 0 07/15/2018 07/22/2018 100 MG capsule (100 mg total) by mouth every 12 (twelve) hours for 7 days. Active Problems Problem Noted Date Infection of PEG site 07/12/2018 Anemia 07/12/2018 GI bleed 07/11/2018 Encounters Date Type Specialty Care Team Description 07/13/2018 Surgery Gastroenterology Malik Gonsales UPPER ENDOSCOPY MD Juan Manuel 07/13/2018 Anesthesia Event Gastroenterology Mita Banuelos MD 07/11/2018 [facility] Gastrointestinal hemorrhage associated with gastrojejunal ulcer; - Encounter Medicine MD Ama Abdominal wall cellulitis; 07/15/2018 Jimmy, History of CVA with residual deficit; [place] Severe protein-calorie malnutrition (HCC); MD Daniel Sacral decubitus ulcer, stage III (HCC); Deana Ledezma Blood loss anemia; MD Pippa Gastrointestinal hemorrhage, unspecified gastrointestinal hemorrhage type after 08/09/2017 Social History Tobacco Use Types Packs/Day Years Used Date Never Assessed Sex Assigned at Date Recorded Not on file Job Start Date Occupation Industry Not on file Not on file Not on file Travel History Travel Start Travel End No recent travel history available. Last Filed Vital Signs Vital Sign Reading Time Taken Blood Pressure 166/84 07/15/2018 8:11 AM ASSET AVAILABILITY LEADER Pulse 81 07/15/2018 9:11 AM ASSET AVAILABILITY LEADER Temperature 37.4 C (99.4 F) 07/15/2018 8:11 AM ASSET AVAILABILITY LEADER Respiratory Rate 18 07/15/2018 9:11 AM ASSET AVAILABILITY LEADER Oxygen Saturation 100% 07/15/2018 9:11 AM ASSET AVAILABILITY LEADER Inhaled Oxygen Concentration 21% 07/14/2018 3:52 PM ASSET AVAILABILITY LEADER Weight 60.8 kg (134 lb) 07/12/2018 9:00 AM ASSET AVAILABILITY LEADER Height - - Body Mass Index - - Plan of Treatment Not on file Procedures Procedure Name Priority Date/Time Associated Comments Diagnosis RHYTHM STRIP - SCAN 08/02/2018 8:20 AM ASSET AVAILABILITY LEADER TRANSFUSION SERVICE 07/16/2018 6:01 REPORT - SCAN PM ASSET AVAILABILITY LEADER PREPARE LEUKO-REDUCED Routine 07/15/2018 11:54 Results for this RBC PM ASSET AVAILABILITY LEADER procedure are in the results section. TRANSFUSION SERVICE 07/15/2018 6:01 REPORT - SCAN PM ASSET AVAILABILITY LEADER POCT-GLUCOSE METER Routine 07/15/2018 8:18 Results for this AM ASSET AVAILABILITY LEADER procedure are in the results section. CBC W/PLT COUNT & AUTO Routine 07/15/2018 7:11 Results for this DIFFERENTIAL AM ASSET AVAILABILITY LEADER procedure are in the results section. BASIC METABOLIC PANEL Routine 07/15/2018 7:11 Results for this (7) AM ASSET AVAILABILITY LEADER procedure are in the results section. HAPTOGLOBIN Routine 07/15/2018 7:11 Results for this AM ASSET AVAILABILITY LEADER procedure are in the results section. CBC W/PLT COUNT & AUTO Routine 07/15/2018 7:11 Results for this DIFFERENTIAL AM ASSET AVAILABILITY LEADER procedure are in the results section. POCT-GLUCOSE METER Routine 07/15/2018 6:37 Results for this AM ASSET AVAILABILITY LEADER procedure are in the results section. POCT-GLUCOSE METER Routine 07/14/2018 11:36 Results for this PM ASSET AVAILABILITY LEADER procedure are in the results section. POCT-GLUCOSE METER Routine 07/14/2018 5:23 Results for this PM ASSET AVAILABILITY LEADER procedure are in the results section. BASIC METABOLIC PANEL Routine 07/14/2018 3:47 Results for this (7) PM ASSET AVAILABILITY LEADER procedure are in the results section. PERIPHERAL BLOOD SMEAR AP Routine 07/14/2018 3:47 Results for this - PATHOLOGIST REVIEW PM ASSET AVAILABILITY LEADER procedure are in the results section. RETICULOCYTE COUNT Routine 07/14/2018 3:47 Results for this PM ASSET AVAILABILITY LEADER procedure are in the results section. CBC W/PLT COUNT & AUTO Routine 07/14/2018 1:03 Results for this DIFFERENTIAL PM ASSET AVAILABILITY LEADER procedure are in the results section. HEPATIC FUNCTION PANEL Routine 07/14/2018 1:03 Results for this PM ASSET AVAILABILITY LEADER procedure are in the results section. CBC W/PLT COUNT & AUTO Routine 07/14/2018 1:03 Results for this DIFFERENTIAL PM ASSET AVAILABILITY LEADER procedure are in the results section. LACTATE DEHYDROGENASE Routine 07/14/2018 1:03 Results for this (LDH) PM ASSET AVAILABILITY LEADER procedure are in the results section. TRANSFUSE Routine 07/14/2018 12:32 LEUKO-REDUCED RED PM ASSET AVAILABILITY LEADER BLOOD CELLS POCT-GLUCOSE METER Routine 07/14/2018 12:01 Results for this PM ASSET AVAILABILITY LEADER procedure are in the results section. VANCOMYCIN LEVEL, Routine 07/14/2018 8:37 Results for this RANDOM AM ASSET AVAILABILITY LEADER procedure are in the results section. POCT-GLUCOSE METER Routine 07/14/2018 6:45 Results for this AM ASSET AVAILABILITY LEADER procedure are in the results section. CBC W/PLT COUNT & AUTO Routine 07/14/2018 6:10 Results for this DIFFERENTIAL AM ASSET AVAILABILITY LEADER procedure are in the results section. MAGNESIUM Routine 07/14/2018 6:10 Results for this AM ASSET AVAILABILITY LEADER procedure are in the results section. BASIC METABOLIC PANEL Routine 07/14/2018 6:10 Results for this (7) AM ASSET AVAILABILITY LEADER procedure are in the results section. CBC W/PLT COUNT & AUTO Routine 07/14/2018 6:10 Results for this DIFFERENTIAL AM ASSET AVAILABILITY LEADER procedure are in the results section. POCT-GLUCOSE METER Routine 07/14/2018 1:16 Results for this AM ASSET AVAILABILITY LEADER procedure are in the results section. VANCOMYCIN LEVEL, Timed 07/13/2018 9:11 Results for this TROUGH PM ASSET AVAILABILITY LEADER procedure are in the results section. TRANSFUSION SERVICE 07/13/2018 6:03 REPORT - SCAN PM ASSET AVAILABILITY LEADER POCT-GLUCOSE METER Routine 07/13/2018 5:42 Results for this PM ASSET AVAILABILITY LEADER procedure are in the results section. POCT-GLUCOSE METER Routine 07/13/2018 3:39 Results for this PM ASSET AVAILABILITY LEADER procedure are in the results section. REPORT OF PROCEDURE - 07/13/2018 3:20 ENDOSCOPY URL PM ASSET AVAILABILITY LEADER UPPER ENDOSCOPY 07/13/2018 3:00 Melena PM ASSET AVAILABILITY LEADER POCT-GLUCOSE METER Routine 07/13/2018 11:58 Results for this AM ASSET AVAILABILITY LEADER procedure are in the results section. (CELLAVISION MANUAL Routine 07/13/2018 5:54 Results for this DIFF) AM ASSET AVAILABILITY LEADER procedure are in the results section. CBC W/PLT COUNT & AUTO Routine 07/13/2018 5:54 Results for this DIFFERENTIAL AM ASSET AVAILABILITY LEADER procedure are in the results section. MAGNESIUM Routine 07/13/2018 5:54 Results for this AM ASSET AVAILABILITY LEADER procedure are in the results section. BASIC METABOLIC PANEL Routine 07/13/2018 5:54 Results for this (7) AM ASSET AVAILABILITY LEADER procedure are in the results section. CBC W/PLT COUNT & AUTO Routine 07/13/2018 5:54 Results for this DIFFERENTIAL AM ASSET AVAILABILITY LEADER procedure are in the results section. POCT-GLUCOSE METER Routine 07/13/2018 5:49 Results for this AM ASSET AVAILABILITY LEADER procedure are in the results section. POCT-GLUCOSE METER Routine 07/13/2018 12:11 Results for this AM ASSET AVAILABILITY LEADER procedure are in the results section. POCT-GLUCOSE METER Routine 07/12/2018 6:40 Results for this PM ASSET AVAILABILITY LEADER procedure are in the results section. POCT-GLUCOSE METER Routine 07/12/2018 12:43 Results for this PM ASSET AVAILABILITY LEADER procedure are in the results section. ECG 12-LEAD Routine 07/12/2018 9:22 Results for this AM ASSET AVAILABILITY LEADER procedure are in the results section. POCT-GLUCOSE METER Routine 07/12/2018 7:37 Results for this AM ASSET AVAILABILITY LEADER procedure are in the results section. (CELLAVISION MANUAL Routine 07/12/2018 6:21 Results for this DIFF) AM ASSET AVAILABILITY LEADER procedure are in the results section. CBC W/PLT COUNT & AUTO Routine 07/12/2018 6:21 Results for this DIFFERENTIAL AM ASSET AVAILABILITY LEADER procedure are in the results section. TYPE AND SCREEN, Routine 07/12/2018 6:21 Results for this AUTOMATED AM ASSET AVAILABILITY LEADER procedure are in the results section. MAGNESIUM Routine 07/12/2018 6:21 Results for this AM ASSET AVAILABILITY LEADER procedure are in the results section. BASIC METABOLIC PANEL Routine 07/12/2018 6:21 Results for this (7) AM ASSET AVAILABILITY LEADER procedure are in the results section. CBC W/PLT COUNT & AUTO Routine 07/12/2018 6:21 Results for this DIFFERENTIAL AM ASSET AVAILABILITY LEADER procedure are in the results section. after 08/09/2017 Results RHYTHM STRIP - SCAN (08/02/2018 8:20 AM ASSET AVAILABILITY LEADER) Narrative Performed At TRANSFUSION SERVICE REPORT - SCAN (07/16/2018 6:01 PM ASSET AVAILABILITY LEADER)Only the most recent of3 resultswithin the time period is included. Narrative Performed At Prepare Leuko-Red RBC (07/15/2018 11:54 PM ASSET AVAILABILITY LEADER) CROSSMATCH COMPATIBLE SAFETRACE TX Unit ABO O Pos SAFETRACE TX UNIT NUMBER [id number] SAFETRACE TX Status TRANSFUSED SAFETRACE TX Blood Bank Product RED BLOOD CELLS SAFETRACE TX PRODUCT CODE [id number] SAFETRACE TX Specimen Other Performing Organization Address City/State/[facility] Phone Number SAFETRACE TX POC-Glucose meter (07/15/2018 8:18 AM ASSET AVAILABILITY LEADER)Only the most recent of15 resultswithin the time period is included. POC-Glucose Meter 236 (H)Comment: TESTED AT 70 - 110 mg/dL [facility] [address] [facility] [place] [address] Specimen Blood Performing Organization Address City/State/Zipcode Phone Number [facility] [address] [place] [address] CENTER CBC with platelet count + automated diff (07/15/2018 7:11 AM ASSET AVAILABILITY LEADER)Only the most recent of5 resultswithin the time period is included. WBC 8.9 3.5 - 10.5 K/L [facility] RBC 3.26 (L) 4.63 - 6.08 M/L [facility] Hemoglobin 9.1 (L) 13.7 - 17.5 GM/DL [facility] Hematocrit 29.6 (L) 40.1 - 51.0 % [facility] MCV 90.8 79.0 - 92.[address] [facility] MCH 27.9 25.7 - 32.[address] [facility] MCHC 30.7 (L) 32.3 - 36.5 GM/DL [facility] RDW 17.9 (H) 11.6 - 14.4 % [facility] Platelets 211 150 - 450 K/CU MM [facility] MPV 10.3 9.4 - 12.[address] [facility] nRBC 0 0 - 0 /[address] [facility] % Neutros 73 % [facility] % Lymphs 12 % [facility] % Monos 12 % [facility] % Eos 2 % [facility] % Baso 0 % [facility] # Neutros 6.49 (H) 1.78 - 5.38 K/L [facility] # Lymphs 1.11 (L) 1.32 - 3.57 K/L [facility] # Monos 1.08 (H) 0.30 - 0.82 K/L [facility] # Eos 0.19 0.04 - 0.54 K/L [facility] # Baso 0.02 0.01 - 0.08 K/L [facility] Immature Granulocytes-Relative 0 0 - 1 % [facility] Specimen Blood Performing Organization Address City/State/Zipcode Phone Number [address] [address] [place] Haptoglobin (07/15/2018 7:11 AM ASSET AVAILABILITY LEADER) Haptoglobin 185 14 - 258 mg/dL [facility] Specimen Blood Performing Organization Address [facility] Phone Number [address] [address] [place] Basic Metabolic Panel (07/15/2018 7:11 AM ASSET AVAILABILITY LEADER)Only the most recent of5 resultswithin the time period is included. Sodium 141 136 - 145 meq/L [facility] Potassium 4.2 3.5 - 5.1 meq/L [facility] Chloride 112 (H) 98 - 107 meq/L [facility] CO2 26 22 - 29 meq/L [facility] BUN 23 (H) 7 - 21 mg/dL [facility] Creatinine 1.23 0.57 - 1.25 mg/dL [facility] Glucose 186 (H) 70 - 105 mg/dL [facility] Calcium 8.0 (L) 8.4 - 10.2 mg/dL [facility] EGFR 69Comment: ESTIMATED GFR IS mL/min/1.73 sq m [facility] NOT ACCURATE CREATININE [facility]ICAL CENTER CLEARANCE IN PREDICTING GLOMERULAR FILTRATION RATE. ESTIMATED GFR IS NOT APPLICABLE FOR DIALYSIS PATIENTS. Specimen Blood Performing Organization Address City/[facility] Phone Number [address] [place] [address] CENTER Peripheral Blood Smear - Path Review (07/14/2018 3:47 PM ASSET AVAILABILITY LEADER) RBC Morphology Polychromasia [facility] Anisocytosis [facility] [place] Poikilocytosis WBC Morphology Toxic Granulation [facility] Pathologist Review Cell counts confirmed. [facility] Pathologist: Rafaela Dowell M.D. [facility] (electronic signature) [facility] Specimen Blood - Arm, Right Performing Organization Address [facility] Phone Number [address] [address] [facility] Reticulocyte count (07/14/2018 3:47 PM ASSET AVAILABILITY LEADER) % Retic 2.3 (H) 0.5 - 1.8 % [facility] Specimen Blood - Arm, Right Performing Organization Address [facility] Phone Number [address] [address] [place] Lactate dehydrogenase (LDH) (07/14/2018 1:03 PM ASSET AVAILABILITY LEADER) LDH 338 (H)Comment: Specimen 125 - 220 U/L [facility] slightly hemolyzed [facility] Specimen Blood Performing Organization Address [facility] Phone Number [address] [address] [facility] Hepatic function panel (07/14/2018 1:03 PM ASSET AVAILABILITY LEADER) Protein, Total 4.8 (L)Comment: Specimen 6.0 - 8.3 gm/dL [facility] hemolyzed [facility] Albumin 1.2 (L)Comment: Specimen 3.5 - 5.0 g/dL [facility] slightly hemolyzed [facility] Total Bilirubin 0.2Comment: Specimen 0.2 - 1.2 mg/dL [facility] slightly hemolyzed [facility] Bilirubin, Direct 0.1Comment: Specimen 0.1 - 0.5 mg/dL [facility] slightly hemolyzed [facility] Alkaline Phosphatase 74 40 - 150 U/L [facility] AST 38 (H)Comment: Specimen 5 - 34 U/L [facility] slightly hemolyzed [facility] ALT 19Comment: Specimen 6 - 55 U/L [facility] slightly hemolyzed [facility] Specimen Blood Performing Organization Address City/[facility] Phone Number [address] [address] [phone] CENTER Transfuse Leuko-Red RBC (07/14/2018 12:32 PM ASSET AVAILABILITY LEADER)Only the most recent of2 resultswithin the time period is included.Vancomycin level, random (07/14/2018 8:37 AM ASSET AVAILABILITY LEADER) Vancomycin Rm 22.6 ug/mL [facility] Specimen Blood - Arm, Left Narrative Performed At Reference Range: No Normals [facility] Performing Organization Address [facility] Phone Number [address] [address] [phone] CENTER Magnesium (07/14/2018 6:10 AM ASSET AVAILABILITY LEADER)Only the most recent of3 resultswithin the time period is included. Magnesium 1.9 1.6 - 2.6 mg/dL [facility] Specimen Blood Performing Organization Address [facility] Phone Number [address] [address] [place] Vancomycin level, trough (07/13/2018 9:11 PM ASSET AVAILABILITY LEADER) Vancomycin Tr 26.3 (H) 10.0 - 20.0 ug/mL [facility] Specimen Blood Narrative Performed At WAIT FOR LEVEL TO RETURN BEFORE GIVING DOSE. [facility] If vancomycin trough level > 20, HOLD dose and contact MD and pharmacist. Performing Organization Address [facility] Phone Number [address] [address] [phone] [place] REPORT OF PROCEDURE - ENDOSCOPY URL (07/13/2018 3:20 PM ASSET AVAILABILITY LEADER) Narrative Performed At Manual Differential (07/13/2018 5:54 AM ASSET AVAILABILITY LEADER)Only the most recent of2 resultswithin the time period is included. % Neutros 89 % [facility] % Lymphs 5 % [facility] % Monos 5 % [facility] % Atypical Lymphs 1 (H) 0 - 0 % [facility] # Neutros 11.21 (H) 1.78 - 5.38 K/ul [facility] # Lymphs 0.63 (L) 1.32 - 3.57 K/ul [facility] # Monos 0.63 0.30 - 0.82 K/uL [facility] # Atypical Lymphs 0.13 (H) 0.00 - 0.00 K/uL [facility] Total Counted 100 [facility] Platelet Morphology Normal [facility] Smudge Cells Present [facility] Anisocytosis 1+ few [facility] Poikilocytes 2+ moderate [facility] Kp Cells 1+ few [facility] Platelet Conc Adequate [facility] Specimen Blood Narrative Performed At Received comment: [facility] User comments: Slide comments: Performing Organization Address City/State/Zipcode Phone Number [facility] [address] [place] [address] [place] ECG 12 lead (07/12/2018 9:22 AM ASSET AVAILABILITY LEADER) Narrative Performed At Ventricular Rate 100 BPM GE MUSE Atrial Rate 100 BPM P-R Interval 148 ms QRS Duration 90 ms Q-T Interval 344 ms QTC Calculation(Bazett) 443 ms P [place] 59 degrees R [place] -12 degrees T [place] 9 degrees Sinus rhythm with premature artial complexes Inferior infarct , age undetermined Abnormal ECG No previous ECGs available Confirmed by MD MARYJANE, IHAB ([id number]) on 07/13/2018 7:29:33 AM Procedure Note Interface, External Ris In - 07/13/2018 7:29 AM ASSET AVAILABILITY LEADER Ventricular Rate 100 BPM Atrial Rate 100 BPM P-R Interval 148 ms QRS Duration 90 ms Q-T Interval 344 ms QTC Calculation(Bazett) 443 ms P [place] 59 degrees R [place] -12 degrees T [place] 9 degrees Sinus rhythm with premature artial complexes Inferior infarct , age undetermined Abnormal ECG No previous ECGs available Confirmed by MD MARYJANE, IHAB ([id number]) on 07/13/2018 7:29:33 AM Performing Organization Address City/State/Zipcode Phone Number GE MUSE Type and screen, automated (07/12/2018 6:21 AM ASSET AVAILABILITY LEADER) ABO/RH AUTOMATED (BEAKER) O POSITIVE [facility] Ab Scrn NEGATIVE [facility] Specimen Blood Performing Organization Address City/[facility] Phone Number [facility] [address] [place] [address] [phone] after 08/09/2017 Insurance Payer Benefit Plan / Group Subscriber ID Type Phone Address MEDICARE MEDICARE A B xxxxxxxxxx Medicare MEDICAID MEDICAID [facility] xxxxxxxxx Medicaid Advance Directives For more information, please contact:[facility] [place] [address] [phone] Code Status Date Activated Date Inactivated Comments Full Code 07/11/2018 10:34 PM This code status was determined by: Patient
--- OUTSIDE RECORDS SUMMARY | 2018-08-10 09:10 | XMS REPORT ---
:1940 [facility] [address] [place] [id number] Care Team Providers Name Role Phone JOSIANE AYALA Unavailable Unavailable Problems This patient has no known problems. Allergies, Adverse Reactions, Alerts This patient has no known allergies or adverse reactions. Medications This patient has no known medications. Results Test Description Test Time Test Comments Text Results Atomic Results Result Comments PERIPHERAL BLOOD SMEAR - PATHOLOGIST REVIEW 2018-07-16 11:31:00 Test Item Value Reference Range Comments RBC MORPHOLOGY (BEAKER) (test Polychromasia ztzq=6728) RBC MORPHOLOGY (BEAKER) (test Anisocytosis bsvu=39269) RBC MORPHOLOGY (BEAKER) (test Poikilocytosis rlcq=81270) WBC MORPHOLOGY (BEAKER) (test Toxic Granulation hnfk=7634) PERIPHERAL SMR REVIEW (BEAKER) (test Cell counts confirmed. dzml=8513) [id number] (BEAKER) (test Rafaela Dowell M.D. (electronic wprs=1104) signature) POCT-GLUCOSE [id number] 08:24:00 Test Item Value Reference Range Comments POC-GLUCOSE METER (BEAKER) 236 mg/dL 70-110 TESTED AT [address] (test cykx=8916) [facility] [address] [id number] 07:35:00 Test Item Value Reference Range Comments HAPTOGLOBIN (BEAKER) (test aech=997) 185 mg/dL 14-258 BASIC METABOLIC [id number] 07:34:00 Test Item Value Reference Range Comments SODIUM (BEAKER) (test 141 meq/L 136-145 yopa=946) POTASSIUM (BEAKER) (test 4.2 meq/L 3.5-5.1 vytm=875) CHLORIDE (BEAKER) (test 112 meq/L 98-107 ksai=119) CO2 (BEAKER) (test 26 meq/L 22-29 gygi=337) BLOOD UREA NITROGEN 23 mg/dL 7-21 (BEAKER) (test jkhp=635) CREATININE (BEAKER) (test 1.23 mg/dL 0.57-1.25 liog=878) GLUCOSE RANDOM (BEAKER) 186 mg/dL 70-105 (test zjzj=333) CALCIUM (BEAKER) (test 8.0 mg/dL 8.4-10.2 ktzf=275) EGFR (BEAKER) (test 69 mL/min/1.73 sq m ESTIMATED GFR IS NOT terx=4826) ACCURATE CREATININE CLEARANCE IN PREDICTING GLOMERULAR FILTRATION RATE. ESTIMATED GFR IS NOT APPLICABLE FOR DIALYSIS PATIENTS. CBC W/PLT COUNT & AUTO [id number] 07:21:00 Test Item Value Reference Range Comments WHITE BLOOD CELL COUNT (BEAKER) (test tkzz=855) 8.9 K/ L 3.5-10.5 RED BLOOD CELL COUNT (BEAKER) (test varr=552) 3.26 M/ L 4.63-6.08 HEMOGLOBIN (BEAKER) (test sijo=537) 9.1 GM/DL 13.7-17.5 HEMATOCRIT (BEAKER) (test lemj=288) 29.6 % 40.1-51.0 MEAN CORPUSCULAR VOLUME (BEAKER) (test hnyd=985) 90.8 fL 79.0-92.2 MEAN CORPUSCULAR HEMOGLOBIN (BEAKER) (test 27.9 pg 25.7-32.2 xpcn=880) MEAN CORPUSCULAR HEMOGLOBIN CONC (BEAKER) (test 30.7 GM/DL 32.3-36.5 fuyr=688) RED CELL DISTRIBUTION WIDTH (BEAKER) (test 17.9 % 11.6-14.4 lzbp=959) PLATELET COUNT (BEAKER) (test phok=694) 211 K/CU MM 150-450 MEAN PLATELET VOLUME (BEAKER) (test xisq=278) 10.3 fL 9.4-12.4 NUCLEATED RED BLOOD CELLS (BEAKER) (test 0 /100 WBC 0-0 jind=467) NEUTROPHILS RELATIVE PERCENT (BEAKER) (test 73 % tnep=403) LYMPHOCYTES RELATIVE PERCENT (BEAKER) (test 12 % bpfj=734) MONOCYTES RELATIVE PERCENT (BEAKER) (test 12 % izct=038) EOSINOPHILS RELATIVE PERCENT (BEAKER) (test 2 % tcox=090) BASOPHILS RELATIVE PERCENT (BEAKER) (test 0 % fgti=435) NEUTROPHILS ABSOLUTE COUNT (BEAKER) (test 6.49 K/ L 1.78-5.38 mqik=294) LYMPHOCYTES ABSOLUTE COUNT (BEAKER) (test 1.11 K/ L 1.32-3.57 kils=640) MONOCYTES ABSOLUTE COUNT (BEAKER) (test 1.08 K/ L 0.30-0.82 udoh=702) EOSINOPHILS ABSOLUTE COUNT (BEAKER) (test 0.19 K/ L 0.04-0.54 vopc=025) BASOPHILS ABSOLUTE COUNT (BEAKER) (test 0.02 K/ L 0.01-0.08 nxri=060) IMMATURE GRANULOCYTES-RELATIVE PERCENT (BEAKER) 0 % 0-1 (test ipqg=4560) POCT-GLUCOSE [id number] 06:39:00 Test Item Value Reference Range Comments POC-GLUCOSE METER (BEAKER) 239 mg/dL 70-110 TESTED AT [address] (test zhxk=6120) [place] [address] POCT-GLUCOSE [id number] 23:40:00 Test Item Value Reference Range Comments POC-GLUCOSE METER (BEAKER) 234 mg/dL 70-110 TESTED AT [address] (test snjv=0092) [place] [address] POCT-GLUCOSE [id number] 17:26:00 Test Item Value Reference Range Comments POC-GLUCOSE METER (BEAKER) 257 mg/dL 70-110 TESTED AT [address] (test utic=9107) [place] [address] BASIC METABOLIC [id number] 16:15:00 Test Item Value Reference Range Comments SODIUM (BEAKER) (test 140 meq/L 136-145 nolg=889) POTASSIUM (BEAKER) (test 4.6 meq/L 3.5-5.1 zqta=986) CHLORIDE (BEAKER) (test 111 meq/L 98-107 lqvc=402) CO2 (BEAKER) (test 25 meq/L 22-29 mquv=529) BLOOD UREA NITROGEN 24 mg/dL 7-21 (BEAKER) (test gyqg=948) CREATININE (BEAKER) (test 1.21 mg/dL 0.57-1.25 suqs=870) GLUCOSE RANDOM (BEAKER) 195 mg/dL 70-105 (test voge=808) CALCIUM (BEAKER) (test 8.2 mg/dL 8.4-10.2 zyxi=779) EGFR (BEAKER) (test 71 mL/min/1.73 sq m ESTIMATED GFR IS NOT rowg=7848) ACCURATE CREATININE CLEARANCE IN PREDICTING GLOMERULAR FILTRATION RATE. ESTIMATED GFR IS NOT APPLICABLE FOR DIALYSIS PATIENTS. RETICULOCYTE [id number] 15:59:00 Test Item Value Reference Range Comments RETICULOCYTE COUNT PCT (BEAKER) (test jdsd=257) 2.3 % 0.5-1.8 HEPATIC FUNCTION [id number] 13:31:00 Test Item Value Reference Range Comments TOTAL PROTEIN (BEAKER) (test 4.8 gm/dL 6.0-8.3 Specimen slightly hemolyzed svoo=567) ALBUMIN (BEAKER) (test 1.2 g/dL 3.5-5.0 Specimen slightly hemolyzed oark=9685) BILIRUBIN TOTAL (BEAKER) (test 0.2 mg/dL 0.2-1.2 Specimen slightly hemolyzed jtuy=129) BILIRUBIN DIRECT (BEAKER) (test 0.1 mg/dL 0.1-0.5 Specimen slightly hemolyzed hnsj=343) ALKALINE PHOSPHATASE (BEAKER) 74 U/L 40-150 (test ozai=846) AST (SGOT) (BEAKER) (test 38 U/L 5-34 Specimen slightly hemolyzed cpms=004) ALT (SGPT) (BEAKER) (test 19 U/L 6-55 Specimen slightly hemolyzed dpol=052) LACTATE DEHYDROGENASE (LDH)2018-07-14 13:30:00 Test Item Value Reference Range Comments LACTATE DEHYDROGENASE (BEAKER) 338 U/L 125-220 Specimen slightly hemolyzed (test bzjo=796) CBC W/PLT COUNT & AUTO [id number] 13:17:00 Test Item Value Reference Range Comments WHITE BLOOD CELL COUNT (BEAKER) (test dheb=007) 11.2 K/ L 3.5-10.5 RED BLOOD CELL COUNT (BEAKER) (test mkhf=838) 3.14 M/ L 4.63-6.08 HEMOGLOBIN (BEAKER) (test ljiv=505) 8.6 GM/DL 13.7-17.5 HEMATOCRIT (BEAKER) (test hthx=842) 28.2 % 40.1-51.0 MEAN CORPUSCULAR VOLUME (BEAKER) (test ysyt=679) 89.8 fL 79.0-92.2 MEAN CORPUSCULAR HEMOGLOBIN (BEAKER) (test 27.4 pg 25.7-32.2 ytfr=712) MEAN CORPUSCULAR HEMOGLOBIN CONC (BEAKER) (test 30.5 GM/DL 32.3-36.5 sfev=530) RED CELL DISTRIBUTION WIDTH (BEAKER) (test 17.2 % 11.6-14.4 ahay=608) PLATELET COUNT (BEAKER) (test fzrl=329) 196 K/CU MM 150-450 MEAN PLATELET VOLUME (BEAKER) (test kokn=939) 10.2 fL 9.4-12.4 NUCLEATED RED BLOOD CELLS (BEAKER) (test 0 /100 WBC 0-0 uujr=047) NEUTROPHILS RELATIVE PERCENT (BEAKER) (test 79 % ngbm=403) LYMPHOCYTES RELATIVE PERCENT (BEAKER) (test 9 % srkr=282) MONOCYTES RELATIVE PERCENT (BEAKER) (test 11 % msva=006) EOSINOPHILS RELATIVE PERCENT (BEAKER) (test 1 % viub=595) BASOPHILS RELATIVE PERCENT (BEAKER) (test 0 % lpzj=900) NEUTROPHILS ABSOLUTE COUNT (BEAKER) (test 8.88 K/ L 1.78-5.38 hfve=205) LYMPHOCYTES ABSOLUTE COUNT (BEAKER) (test 0.96 K/ L 1.32-3.57 cbzx=232) MONOCYTES ABSOLUTE COUNT (BEAKER) (test 1.26 K/ L 0.30-0.82 oxgs=973) EOSINOPHILS ABSOLUTE COUNT (BEAKER) (test 0.06 K/ L 0.04-0.54 iwse=165) BASOPHILS ABSOLUTE COUNT (BEAKER) (test 0.02 K/ L 0.01-0.08 wluf=288) IMMATURE GRANULOCYTES-RELATIVE PERCENT (BEAKER) 0 % 0-1 (test ozqs=0309) POCT-GLUCOSE [id number] 12:30:00 Test Item Value Reference Range Comments POC-GLUCOSE METER (BEAKER) 193 mg/dL 70-110 TESTED AT [facility] [address] [facility] (test adkk=8767) [facility] [address] VANCOMYCIN LEVEL, [id number] 09:00:00 Test Item Value Reference Range Comments VANCOMYCIN RANDOM (BEAKER) (test yfec=087) 22.6 ug/mL Reference Range: No [id number] 07:29:00 Test Item Value Reference Range Comments MAGNESIUM (BEAKER) (test rbtl=983) 1.9 mg/dL 1.6-2.6 BASIC METABOLIC [id number] 07:29:00 Test Item Value Reference Range Comments SODIUM (BEAKER) (test 141 meq/L 136-145 gycx=356) POTASSIUM (BEAKER) (test 3.7 meq/L 3.5-5.1 betk=593) CHLORIDE (BEAKER) (test 113 meq/L 98-107 mxro=501) CO2 (BEAKER) (test 23 meq/L 22-29 fqtg=022) BLOOD UREA NITROGEN 23 mg/dL 7-21 (BEAKER) (test soxt=541) CREATININE (BEAKER) (test 1.11 mg/dL 0.57-1.25 zjmu=178) GLUCOSE RANDOM (BEAKER) 100 mg/dL 70-105 (test noal=374) CALCIUM (BEAKER) (test 8.2 mg/dL 8.4-10.2 rxkd=761) EGFR (BEAKER) (test 78 mL/min/1.73 sq m ESTIMATED GFR IS NOT fwqh=3220) ACCURATE CREATININE CLEARANCE IN PREDICTING GLOMERULAR FILTRATION RATE. ESTIMATED GFR IS NOT APPLICABLE FOR DIALYSIS PATIENTS. CBC W/PLT COUNT & AUTO [id number] 07:00:00 Test Item Value Reference Range Comments WHITE BLOOD CELL COUNT (BEAKER) (test xjvi=211) 11.9 K/ L 3.5-10.5 RED BLOOD CELL COUNT (BEAKER) (test kydv=273) 2.36 M/ L 4.63-6.08 HEMOGLOBIN (BEAKER) (test wmsi=121) 6.6 GM/DL 13.7-17.5 HEMATOCRIT (BEAKER) (test padv=785) 21.2 % 40.1-51.0 MEAN CORPUSCULAR VOLUME (BEAKER) (test shjr=087) 89.8 fL 79.0-92.2 MEAN CORPUSCULAR HEMOGLOBIN (BEAKER) (test 28.0 pg 25.7-32.2 qgkq=963) MEAN CORPUSCULAR HEMOGLOBIN CONC (BEAKER) (test 31.1 GM/DL 32.3-36.5 nzcq=783) RED CELL DISTRIBUTION WIDTH (BEAKER) (test 18.6 % 11.6-14.4 gsjc=159) PLATELET COUNT (BEAKER) (test dcbq=798) 210 K/CU MM 150-450 MEAN PLATELET VOLUME (BEAKER) (test jeyi=878) 10.7 fL 9.4-12.4 NUCLEATED RED BLOOD CELLS (BEAKER) (test 0 /100 WBC 0-0 jvpm=273) NEUTROPHILS RELATIVE PERCENT (BEAKER) (test 77 % vizb=083) LYMPHOCYTES RELATIVE PERCENT (BEAKER) (test 10 % dqpj=012) MONOCYTES RELATIVE PERCENT (BEAKER) (test 12 % lhdt=222) EOSINOPHILS RELATIVE PERCENT (BEAKER) (test 0 % tedy=830) BASOPHILS RELATIVE PERCENT (BEAKER) (test 0 % rxjo=694) NEUTROPHILS ABSOLUTE COUNT (BEAKER) (test 9.19 K/ L 1.78-5.38 hpnx=807) LYMPHOCYTES ABSOLUTE COUNT (BEAKER) (test 1.21 K/ L 1.32-3.57 nmtl=994) MONOCYTES ABSOLUTE COUNT (BEAKER) (test 1.38 K/ L 0.30-0.82 kkhn=698) EOSINOPHILS ABSOLUTE COUNT (BEAKER) (test 0.03 K/ L 0.04-0.54 uusv=744) BASOPHILS ABSOLUTE COUNT (BEAKER) (test 0.04 K/ L 0.01-0.08 jzha=736) IMMATURE GRANULOCYTES-RELATIVE PERCENT (BEAKER) 0 % 0-1 (test oylm=1464) POCT-GLUCOSE [id number] 06:47:00 Test Item Value Reference Range Comments POC-GLUCOSE METER (BEAKER) 128 mg/dL 70-110 TESTED AT [address] (test xivx=3999) [place] [id number] POCT-GLUCOSE [id number] 01:25:00 Test Item Value Reference Range Comments POC-GLUCOSE METER (BEAKER) 81 mg/dL 70-110 TESTED AT [address] (test qbwa=4535) [place] [id number] VANCOMYCIN LEVEL, [id number] 21:59:00 Test Item Value Reference Range Comments VANCOMYCIN TROUGH (BEAKER) (test uzlb=984) 26.3 ug/mL 10.0-20.0 WAIT FOR LEVEL TO RETURN BEFORE GIVING DOSE. If vancomycin trough level > 20 , HOLD dose and contact MD and pharmacist.POCT-GLUCOSE [id number] 17:48:00 Test Item Value Reference Range Comments POC-GLUCOSE METER (BEAKER) 96 mg/dL 70-110 TESTED AT [address] (test nnbx=3918) [place] [address] POCT-GLUCOSE [id number] 15:40:00 Test Item Value Reference Range Comments POC-GLUCOSE METER (BEAKER) 106 mg/dL 70-110 TESTED AT [address] (test onnz=2687) [place] [address] CBC W/PLT COUNT & AUTO [id number] 14:21:00 Test Item Value Reference Range Comments WHITE BLOOD CELL COUNT (BEAKER) (test sxzd=648) 12.6 K/ L 3.5-10.5 RED BLOOD CELL COUNT (BEAKER) (test xeuw=434) 2.64 M/ L 4.63-6.08 HEMOGLOBIN (BEAKER) (test egpf=260) 7.3 GM/DL 13.7-17.5 HEMATOCRIT (BEAKER) (test vhip=090) 23.8 % 40.1-51.0 MEAN CORPUSCULAR VOLUME (BEAKER) (test jmcd=717) 90.2 fL 79.0-92.2 MEAN CORPUSCULAR HEMOGLOBIN (BEAKER) (test 27.7 pg 25.7-32.2 pwsi=060) MEAN CORPUSCULAR HEMOGLOBIN CONC (BEAKER) (test 30.7 GM/DL 32.3-36.5 dvxa=189) RED CELL DISTRIBUTION WIDTH (BEAKER) (test 18.2 % 11.6-14.4 oaxc=690) PLATELET COUNT (BEAKER) (test axoj=367) 225 K/CU MM 150-450 MEAN PLATELET VOLUME (BEAKER) (test lcjb=996) 10.6 fL 9.4-12.4 NUCLEATED RED BLOOD CELLS (BEAKER) (test 0 /100 WBC 0-0 qhph=565) (CELLAVISION MANUAL DIFF)2018-07-13 14:21:00 Test Item Value Reference Range Comments NEUTROPHILS - REL (CELLAVISION)(BEAKER) (test 89 % cicb=1960) LYMPHOCYTES - REL (CELLAVISION)(BEAKER) (test 5 % ifey=4777) MONOCYTES - REL (CELLAVISION)(BEAKER) (test 5 % xvzx=9366) ATYPICAL LYMPHOCYTES - REL (CELLAVISION)(BEAKER) 1 % 0-0 (test ngzs=0055) NEUTROPHILS - ABS (CELLAVISION)(BEAKER) (test 11.21 K/ul 1.78-5.38 kebd=0071) LYMPHOCYTES - ABS (CELLAVISION)(BEAKER) (test 0.63 K/ul 1.32-3.57 ooav=4781) MONOCYTES - ABS (CELLAVISION)(BEAKER) (test 0.63 K/uL 0.30-0.82 ogzx=9168) ATYPICAL LYMPHOCYTES - ABS (CELLAVISION)(BEAKER) 0.13 K/uL 0.00-0.00 (test mibr=2913) TOTAL COUNTED (BEAKER) (test pdsa=9327) 100 PLT MORPHOLOGY (BEAKER) (test asdy=158) Normal SMUDGE CELLS (BEAKER) (test uvnz=9158) Present ANISOCYTOSIS (BEAKER) (test dypm=518) 1+ few POIKILOCYTES (BEAKER) (test zrjn=297) 2+ moderate CESILIA CELLS (BEAKER) (test amwz=376) 1+ few PLATELET CONCENTRATION (CELLAVISION)(BEAKER) Adequate (test chum=4609) Received comment: User comments: Slide comments:POCT-GLUCOSE [id number] 12: 02:00 Test Item Value Reference Range Comments POC-GLUCOSE METER (BEAKER) 84 mg/dL 70-110 TESTED AT [address] (test skte=5322) [facility] [address] [id number] 07:12:00 Test Item Value Reference Range Comments MAGNESIUM (BEAKER) (test ntcj=377) 1.6 mg/dL 1.6-2.6 BASIC METABOLIC [id number] 07:12:00 Test Item Value Reference Range Comments SODIUM (BEAKER) (test 140 meq/L 136-145 wloh=166) POTASSIUM (BEAKER) (test 3.7 meq/L 3.5-5.1 ovjx=317) CHLORIDE (BEAKER) (test 110 meq/L 98-107 pfxc=702) CO2 (BEAKER) (test 25 meq/L 22-29 mztr=066) BLOOD UREA NITROGEN 27 mg/dL 7-21 (BEAKER) (test pmrg=995) CREATININE (BEAKER) (test 1.07 mg/dL 0.57-1.25 exrx=190) GLUCOSE RANDOM (BEAKER) 67 mg/dL 70-105 (test hnuk=354) CALCIUM (BEAKER) (test 8.5 mg/dL 8.4-10.2 siqg=381) EGFR (BEAKER) (test 81 mL/min/1.73 sq m ESTIMATED GFR IS NOT eand=4096) ACCURATE CREATININE CLEARANCE IN PREDICTING GLOMERULAR FILTRATION RATE. ESTIMATED GFR IS NOT APPLICABLE FOR DIALYSIS PATIENTS. POCT-GLUCOSE [id number] 06:24:00 Test Item Value Reference Range Comments POC-GLUCOSE METER (BEAKER) 71 mg/dL 70-110 TESTED AT [address] (test ttox=5909) [place] [id number] POCT-GLUCOSE [id number] 00:20:00 Test Item Value Reference Range Comments POC-GLUCOSE METER (BEAKER) 106 mg/dL 70-110 TESTED AT [address] (test qhat=6535) [place] [id number] POCT-GLUCOSE [id number] 18:43:00 Test Item Value Reference Range Comments POC-GLUCOSE METER (BEAKER) 104 mg/dL 70-110 TESTED AT [address] (test yyix=6804) [place] [id number] POCT-GLUCOSE [id number] 12:56:00 Test Item Value Reference Range Comments POC-GLUCOSE METER (BEAKER) 113 mg/dL 70-110 TESTED AT [address] (test qxid=2177) [place] [id number] CBC W/PLT COUNT & AUTO [id number] 11:01:00 Test Item Value Reference Range Comments WHITE BLOOD CELL COUNT (BEAKER) (test zbsf=915) 12.9 K/ L 3.5-10.5 RED BLOOD CELL COUNT (BEAKER) (test ofbi=115) 2.66 M/ L 4.63-6.08 HEMOGLOBIN (BEAKER) (test jseq=229) 7.5 GM/DL 13.7-17.5 HEMATOCRIT (BEAKER) (test vllo=230) 24.1 % 40.1-51.0 MEAN CORPUSCULAR VOLUME (BEAKER) (test pysw=334) 90.6 fL 79.0-92.2 MEAN CORPUSCULAR HEMOGLOBIN (BEAKER) (test 28.2 pg 25.7-32.2 scyf=619) MEAN CORPUSCULAR HEMOGLOBIN CONC (BEAKER) (test 31.1 GM/DL 32.3-36.5 pweo=513) RED CELL DISTRIBUTION WIDTH (BEAKER) (test 18.4 % 11.6-14.4 ylse=824) PLATELET COUNT (BEAKER) (test near=565) 208 K/CU MM 150-450 MEAN PLATELET VOLUME (BEAKER) (test sjxq=522) 10.8 fL 9.4-12.4 NUCLEATED RED BLOOD CELLS (BEAKER) (test 0 /100 WBC 0-0 ubme=453) (CELLAVISION MANUAL DIFF)2018-07-12 11:01:00 Test Item Value Reference Range Comments NEUTROPHILS - REL (CELLAVISION)(BEAKER) (test 86 % ntuy=1977) LYMPHOCYTES - REL (CELLAVISION)(BEAKER) (test 1 % dptr=6504) MONOCYTES - REL (CELLAVISION)(BEAKER) (test 9 % qlza=6573) BANDS - REL (CELLAVISION)(BEAKER) (test 3 % 0-10 mubp=7446) ATYPICAL LYMPHOCYTES - REL (CELLAVISION)(BEAKER) 1 % 0-0 (test pxvq=2331) NEUTROPHILS - ABS (CELLAVISION)(BEAKER) (test 11.09 K/ul 1.78-5.38 diew=0003) LYMPHOCYTES - ABS (CELLAVISION)(BEAKER) (test 0.13 K/ul 1.32-3.57 hgco=8771) MONOCYTES - ABS (CELLAVISION)(BEAKER) (test 1.16 K/uL 0.30-0.82 iitz=6549) BANDS - ABS (CELLAVISION)(BEAKER) (test 0.39 K/uL 0.00-0.80 dubw=4771) ATYPICAL LYMPHOCYTES - ABS (CELLAVISION)(BEAKER) 0.13 K/uL 0.00-0.00 (test mrth=7156) TOTAL COUNTED (BEAKER) (test gagh=4316) 100 WBC MORPHOLOGY (BEAKER) (test szeo=502) Normal PLT MORPHOLOGY (BEAKER) (test dudg=746) Normal POLYCHROMATOPHILLIC RBCS(BEAKER) (test ubdk=240) 1+ few HYPOCHROMIA (BEAKER) (test iykz=316) 1+ few ARTIFACT (CELLAVISION)(BEAKER) (test diem=9205) Present PLATELET CONCENTRATION (CELLAVISION)(BEAKER) Adequate (test jszl=3063) Received comment: User comments: Slide comments:POCT-GLUCOSE [id number] 07: 57:00 Test Item Value Reference Range Comments POC-GLUCOSE METER (BEAKER) 96 mg/dL 70-110 TESTED AT [facility] [address] [facility] (test ivtg=2752) [facility] [address] [id number] 07:34:00 Test Item Value Reference Range Comments MAGNESIUM (BEAKER) (test zqhs=541) 1.8 mg/dL 1.6-2.6 BASIC METABOLIC [id number] 07:34:00 Test Item Value Reference Range Comments SODIUM (BEAKER) (test 138 meq/L 136-145 gpbo=131) POTASSIUM (BEAKER) (test 4.0 meq/L 3.5-5.1 sjwq=919) CHLORIDE (BEAKER) (test 108 meq/L 98-107 rypf=327) CO2 (BEAKER) (test 26 meq/L 22-29 waor=728) BLOOD UREA NITROGEN 33 mg/dL 7-21 (BEAKER) (test ubzv=559) CREATININE (BEAKER) (test 1.10 mg/dL 0.57-1.25 egmx=375) GLUCOSE RANDOM (BEAKER) 79 mg/dL 70-105 (test ccln=610) CALCIUM (BEAKER) (test 8.4 mg/dL 8.4-10.2 adnl=139) EGFR (BEAKER) (test 79 mL/min/1.73 sq m ESTIMATED GFR IS NOT bsms=2741) ACCURATE CREATININE CLEARANCE IN PREDICTING GLOMERULAR FILTRATION RATE. ESTIMATED GFR IS NOT APPLICABLE FOR DIALYSIS PATIENTS.
[2018-08-10 10:28] LABS: ALT/SGPT 31 U/L (12-78); AST/SGOT 34 U/L (15-37); Albumin 1.7 g/dL (3.4-5.0); Alkaline Phosphatase 203 U/L (45-117); BUN Blood Urea Nitrogen 28 mg/dL (7-18); Bicarbonate 31 mmol/L (21-32); Bilirubin Direct < 0.1 mg/dL (0-0.2); Bilirubin Total 0.2 mg/dL (0.2-1.0); Glucose Level 120 mg/dL (74-106); Lipase 216 U/L (73-393); Potassium 4.3 mmol/L (3.5-5.1); Protein, Total 7.6 g/dL (6.4-8.2); Sodium Level 138 mmol/L (136-145)
[2018-08-10 10:39] LABS: Protime INR 1.11
[2018-08-10 12:19] LABS: Arterial Blood Carboxyhemoglob 1.3 % (0-1.5); Blood Gas Oxyhemoglobin 72.7 % (94-97); Blood O2 Saturation 74.3 % (92-98.5)
--- NOTE | 2018-08-10 12:22 | RAD REPORT ---
EXAM DESCRIPTION: CTAbdomen Pelvis W Contrast - 08/10/2018 12:11 pm CLINICAL HISTORY: Abdominal pain. ABD PAIN COMPARISON: Abdomen Pelvis Wo Contrast dated 07/11/2018 TECHNIQUE: Biphasic CT imaging of the abdomen and pelvis was performed with 100 ml non-ionic IV cont rast. All CT scans are performed using dose optimization technique as appropriate and may include automated exposure control or mA/KV adjustment according to patient size. FINDINGS: Ill-defined linear opacities are present in both lung bases, likely atelectasis or minimal areas of aspiration.Gastrostomy tube is in place. The liver, spleen, pancreas, adrenal glands and kidneys are within normal limits. No bowel obstruction, free air, free fluid or abscess. The appendix is normal. No evidence of signi ficant lymphadenopathy. Moderate fecal retention in the rectum. 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 IMPRESSION: No acute intra-abdominal or pelvic finding. Moderate fecal retention in the rectum.
[2018-08-10] MEDS ORDERED: PANTOPRAZOLE INJ 80 MG in NA CHLORIDE 0.9% 250 ML IV SCH (12:45)
--- NOTE | 2018-08-10 12:50 | EDPHYS ---
Physician Documentation [facility] Name: Leonardo Kumari Age: 78 yrs Sex: Male : 1940 Arrival Date: 08/10/2018 Time: 09:13 Bed 16 Private MD: ED Physician Jamie Beebe HPI: 08/10 09:18 This 78 yrs old Black Male presents to ER via EMS with complaints of GI Bleeding. rn 09:18 This 78 yrs old Black Male presents to ER via EMS with complaints of abd pain. rn 09:18 The patient presents with abdominal pain in the periumbilical area. Onset: The rn symptoms/episode began/occurred at an unknown time. The symptoms do not radiate. Modifying factors: the symptoms are aggravated by touching the area. Severity of pain: At its worst the pain was moderate in the emergency department the pain is unchanged. Sent by [facility] for abd pain, noticed some coffee ground substance in feeding tube today, sent because hx of GI hemorrhage. . Historical: - Allergies: 09:16 Stadol; jl7 09:16 Versed; jl7 - Home Meds: 12:10 acetaminophen 650 mg Rectal supp 1 suppository every 4 hours PRN [Active]; amlodipine 5 jl7 mg tab 1 tab once daily [Active]; ascorbic acid oral [Active]; Aspir-81 81 mg Oral TbEC 1 tab once daily [Active]; atorvastatin 80 mg Oral tab 1 tab once daily [Active]; carvedilol 25 mg Oral tab 1 tab nightly [Active]; Flexeril 10 mg Oral tab q12h prn [Active]; Colace 100 mg Oral cap 1 cap once daily [Active]; hydralazine 25 mg Oral tab 1 tab every 8 hours [Active]; Ketoconazole Oral [Active]; Levemir 100 unit/mL subcutaneous soln [Active]; multivitamin with minerals Oral 5 mL daily [Active]; Novolog 100 unit/mL Sub-Q soln [Active]; paroxetine HCl 10 mg oral tab 1 tab once daily [Active]; Protonix 40 mg Oral TbEC 1 tab once daily [Active]; tramadol 50 mg Oral tab 1 tab every 6 hours [Active]; Zinc Oxide Topical [Active]; - PMHx: 12:10 Allergic rhinitis; Aphasia; GI Bleed; UTI; GERD; Diabetes - NIDDM; High Cholesterol; jl7 Dementia; Depression; Hypertension; Paraplegia; DYSPHAGIA; MRSA; - Immunization history:: Adult Immunizations up to date. - Family history:: not pertinent. - Social history:: Smoking status: Patient/guardian denies using tobacco. - Ebola Screening: : No symptoms or risks identified at this time. - Hospitalizations: : No recent hospitalization is reported. - History obtained from: EMS. ROS: 09:18 Unable to obtain ROS due to baseline dementia. rn Exam: 09:18 Constitutional: Thin male, no acute distress. Eyes: Pupils equal round and reactive rn to light, extra-ocular motions intact. Lids and lashes normal. Conjunctiva and sclera are non-icteric and not injected. Cornea within normal limits. Periorbital areas with no swelling, redness, or edema. ENT: dry MM Cardiovascular: Regular rate and rhythm, No pulse deficits. Abdomen/GI: soft, + mid abd tenderness with mild erythema surrounding feeding tube. Skin: Warm, dry MS/ Extremity: Pulses equal, no cyanosis. Neuro: Awake, alert, mubmling incomrehensible speech, yelling "stomach", + all 4 ext contractures. Vital Signs: 09:16 BP 134 / 59; Pulse 86; Resp 16 S; Pulse Ox 97% on R/A; jl7 10:26 BP 133 / 61; Pulse 84; Resp 18; Temp 98.2(TE); Pulse Ox 98% on R/A; mh5 11:49 BP 131 / 76; Pulse 74; Resp 16 S; Pulse Ox 97% on R/A; jl7 13:00 BP 133 / 62; Pulse 80; Resp 16; Pulse Ox 98% ; Pain 0/10; jl7 14:45 BP 135 / 69; Pulse 75; Resp 16; Pulse Ox 97% ; jl7 MDM: 09:16 Patient medically screened. rn 12:46 Differential diagnosis: bowel obstruction, gastritis, gastroesophageal reflux disease, rn GI Bleed, non-specific abd pain, pancreatitis, Peptic Ulcer Disease. Data reviewed: vital signs, nurses notes, lab test result(s), radiologic studies, CT scan, and as a result, I will admit patient. Counseling: I had a detailed discussion with the patient and/or guardian regarding: the historical points, exam findings, and any diagnostic results supporting the discharge/admit diagnosis, lab results, radiology results, the need for further work-up and treatment in the hospital, the need to transfer to another facility, [facility] does not immediately have the required specialist. Response to treatment: the patient's symptoms have mildly improved after treatment, and as a result, I will admit patient. Admission orders: after a detailed discussion of the patient's condition and case, the admit orders are written by me. ED course: Pt with stable vitals, + gastric occult +, mild anemia, + fecal retention but otherwise normal ct scan of abdomen, accepted for transfer to [facility] given NO gi coverage here. . 08/10 09:17 Order name: Basic Metabolic Panel; Complete Time: 11: rn 08/10 09:17 Order name: CBC with Diff rn 08/10 09:17 Order name: Hepatic Function; Complete Time: : rn 08/10 09:17 Order name: Lipase; Complete Time: : rn 08/10 09:17 Order name: PT-INR; Complete Time: : rn 08/10 09:17 Order name: Ptt, Activated; Complete Time: 11: rn 08/10 09:17 Order name: CT Abd/Pelvis - W/Contrast rn 08/10 09:17 Order name: Type And Screen; Complete Time: 11: rn 08/10 09:17 Order name: Gastric Occult Blood; Complete Time: : rn 08/10 11:44 Order name: ABG eb 08/10 09:17 Order name: IV Saline Lock; Complete Time: 10: rn 08/10 09:17 Order name: Labs collected and sent; Complete Time: : rn 08/10 09:17 Order name: EKG; Complete Time: : rn 08/10 09:17 Order name: EKG - Nurse/Tech; Complete Time: 10:28 rn Administered Medications: 10:28 Drug: ProTONIX 40 mg Route: IVP; Site: right forearm; jl7 10:47 Follow up: Response: No adverse reaction jl7 10:40 Drug: Zofran 4 mg Route: IVP; Site: right forearm; jl7 11:50 Follow up: Response: No adverse reaction jl7 10:42 Drug: Demerol 25 mg Route: IVP; Site: right antecubital; jl7 11:30 Follow up: Response: No adverse reaction; Pain is decreased jl7 13:07 Drug: ProTONIX 8 mg/hr Route: IV; Rate: 25 ml/hr; Site: right forearm; jl7 14:55 Follow up: IV Status: Infusion continued upon transfer jl7 Disposition: 08/10/18 12:49 Transfer ordered to [facility]. Diagnosis are Upper GI bleed, Constipation, unspecified, Dehydration. - Reason for transfer: Higher level of care. - Accepting physician is Dr. Baker. - Condition is Stable. - Problem is new. - Symptoms have improved. Signatures: Dispatcher [employer] Yudy Gibbons RN RN iw Nieto, Roman, MD MD rn Leal, Jahala, RN RN jl7 Corrections: (The following items were deleted from the chart) 14:58 12:49 08/10/2018 12:49 Transfer ordered to [facility]. Diagnosis is iw Upper GI bleed; Constipation, unspecified; Dehydration. Reason for transfer: Higher level of care. Accepting physician is Dr. Duron Condition is Stable. Problem is new. Symptoms have improved. rn
--- NOTE | 2018-08-10 12:50 | ER ---
Nurse's Notes [facility] Name: Leonardo Kumari Age: 78 yrs Sex: Male : 1940 Arrival Date: 08/10/2018 Time: 09:13 Bed 16 Private MD: Diagnosis: Upper GI bleed;Constipation, unspecified;Dehydration Presentation: 08/10 09:14 Presenting complaint: EMS states: The nurse noticed coffee ground appearance to the jl7 g-tube when feeding. Transition of care: patient was received from another setting of care (long-term care facility)[facility]. Onset of symptoms was August 10, 2018. Risk Assessment: Do you want to hurt yourself or someone else? Patient reports no desire to harm self or others. Care prior to arrival: None. 09:14 Method Of Arrival: EMS: [facility] 09:14 Acuity: [place] [facility] 09:15 Initial Sepsis Screen: Does the patient meet any 2 criteria? No. Patient's initial [facility] sepsis screen is negative. Does the patient have a suspected source of infection? No. Patient's initial sepsis screen is negative. Historical: - Allergies: 09:16 Stadol; jl7 09:16 Versed; [facility] - Home Meds: 12:10 acetaminophen 650 mg Rectal supp 1 suppository every 4 hours PRN [Active]; amlodipine 5 jl7 mg tab 1 tab once daily [Active]; ascorbic acid oral [Active]; Aspir-81 81 mg Oral TbEC 1 tab once daily [Active]; atorvastatin 80 mg Oral tab 1 tab once daily [Active]; carvedilol 25 mg Oral tab 1 tab nightly [Active]; Flexeril 10 mg Oral tab q12h prn [Active]; Colace 100 mg Oral cap 1 cap once daily [Active]; hydralazine 25 mg Oral tab 1 tab every 8 hours [Active]; Ketoconazole Oral [Active]; Levemir 100 unit/mL subcutaneous soln [Active]; multivitamin with minerals Oral 5 mL daily [Active]; Novolog 100 unit/mL Sub-Q soln [Active]; paroxetine HCl 10 mg oral tab 1 tab once daily [Active]; Protonix 40 mg Oral TbEC 1 tab once daily [Active]; tramadol 50 mg Oral tab 1 tab every 6 hours [Active]; Zinc Oxide Topical [Active]; - PMHx: 12:10 Allergic rhinitis; Aphasia; GI Bleed; UTI; GERD; Diabetes - NIDDM; High Cholesterol; jl7 Dementia; Depression; Hypertension; Paraplegia; DYSPHAGIA; MRSA; - Immunization history:: Adult Immunizations up to date. - Family history:: not pertinent. - Social history:: Smoking status: Patient/guardian denies using tobacco. - Ebola Screening: : No symptoms or risks identified at this time. - Hospitalizations: : No recent hospitalization is reported. - History obtained from: EMS. Screenin:15 Abuse screen: Denies threats or abuse. Denies injuries from another. Nutritional jl7 screening: No deficits noted. Tuberculosis screening: No symptoms or risk factors identified. Fall Risk No fall in past 12 months (0 pts). No secondary diagnosis (0 pts). IV access (20 points). Ambulatory Aid- None/Bed Rest/Nurse Assist (0 pts). Gait- Normal/Bed Rest/Wheelchair (0 pts) Mental Status- Oriented to own ability (0 pts). Total Hsieh Fall Scale indicates No Risk (0-24 pts). Assessment: 09:15 General: Appears in no apparent distress. uncomfortable, Behavior is calm, cooperative. jl7 Pain: Complains of pain in abdomen. Neuro: Level of Consciousness is awake, alert, obeys commands, Oriented to person, place, time. Cardiovascular: Chest pain is denied. Respiratory: Airway is patent Respiratory effort is even, unlabored, Respiratory pattern is regular, symmetrical. GI: PEG tube in place, clamped. Site reddened. Site with drainage. Derm: Skin is diaphoretic, Skin is normal, Skin temperature is warm. Musculoskeletal: contractures noted to bilateral legs and arms. 10:25 Reassessment: Contrast drink administered through g-tube, CT notified. jl7 11:30 Reassessment: Patient appears in no apparent distress at this time. Patient and/or jl7 family updated on plan of care and expected duration. Pain level reassessed. Patient is alert, oriented x 3, equal unlabored respirations, skin warm/dry/pink. Patient states symptoms have improved. 13:05 Reassessment: pt laying in bed with eyes closed, respirations even and unlabored, no jl7 signs of distress noted at this time. 14:00 Reassessment: Patient appears in no apparent distress at this time. Patient and/or jl7 family updated on plan of care and expected duration. Pain level reassessed. Patient is alert, oriented x 3, equal unlabored respirations, skin warm/dry/pink. Patient denies pain at this time. 19:06 Reassessment:. jl7 19:09 Reassessment: Report given to nurse at [place] on POC for pt, verbalized jl7 understanding. Vital Signs: 09:16 BP 134 / 59; Pulse 86; Resp 16 S; Pulse Ox 97% on R/A; jl7 10:26 BP 133 / 61; Pulse 84; Resp 18; Temp 98.2(TE); Pulse Ox 98% on R/A; mh5 11:49 BP 131 / 76; Pulse 74; Resp 16 S; Pulse Ox 97% on R/A; jl7 13:00 BP 133 / 62; Pulse 80; Resp 16; Pulse Ox 98% ; Pain 0/10; jl7 14:45 BP 135 / 69; Pulse 75; Resp 16; Pulse Ox 97% ; jl7 ED Course: 09:13 Patient arrived in ED. jl7 09:15 Triage completed. jl7 09:16 Jamie Beebe MD is Attending Physician. rn 09:16 Arm band placed on right wrist. jl7 09:40 Don Chance, VIVIEN is Primary Nurse. jl7 10:00 Initial lab(s) drawn, by ak, sent to lab. Inserted saline lock: 20 gauge in right em forearm, using aseptic technique. Blood collected. 10:15 Gastric contents sent to lab for occult blood testing. jl7 10:37 EKG done, by non morse intercept technician. reviewed by Jamie Beebe MD. sm3 12:14 CT Abd/Pelvis - W/Contrast In Process Unspecified. EDMS 12:28 initiated a transfer with Liudmila at the [facility]. eb 12:44 connected the hospitalist and the GI doctors hand brim ironer with ED doc for patient transfer eb consultation. 13:01 administrative approval given by Liudmila Siddiqui RN Metal Sander [employer] Finisher/ Pt going to eb bed 935/ Dr. Thurston has accepted the patient in transfer/ Report to be called to [phone]. 13:05 Patient has correct armband on for positive identification. Placed in gown. Bed in low jl7 position. Call light in reach. Side rails up X2. environmental monitoring specialist on. Pulse ox on. NIBP on. Warm blanket given. 14:55 Patient transferred, IV remains in place. intact, No redness/swelling at site. jl7 14:55 No provider procedures requiring assistance completed. jl7 Administered Medications: 10:28 Drug: ProTONIX 40 mg Route: IVP; Site: right forearm; jl7 10:47 Follow up: Response: No adverse reaction jl7 10:40 Drug: Zofran 4 mg Route: IVP; Site: right forearm; jl7 11:50 Follow up: Response: No adverse reaction jl7 10:42 Drug: Demerol 25 mg Route: IVP; Site: right antecubital; jl7 11:30 Follow up: Response: No adverse reaction; Pain is decreased jl7 13:07 Drug: ProTONIX 8 mg/hr Route: IV; Rate: 25 ml/hr; Site: right forearm; jl7 14:55 Follow up: IV Status: Infusion continued upon transfer jl7 Outcome: 12:49 ER care complete, transfer ordered by . rn 14:55 Transferred by ground EMS to [facility], Transfer form completed. jl7 X-rays sent w/ patient. 14:55 Condition: stable 14:55 Discharge instructions given to patient, Instructed on the need for transfer, Demonstrated understanding of instructions. 14:58 Patient left the ED. iw Signatures: Dispatcher [employer] EDTrent Huynh, SCIENTIFIC ARTIST SCIENTIFIC ARTIST Yudy Malik RN RN iw Nieto, Roman, MD MD rn Martinez, [facility] Don Chance RN RN jl7 Neli Mendoza [facility]
--- NOTE | 2018-08-10 13:59 | EKG ---
Test Date: 2018-08-10 Test Time: 10:28:56 Fur Farmer: BABAK MEASUREMENT RESULTS: Intervals: Rate: 80 PA: 144 QRSD: 92 QT: 374 QTc: 431 [place]: P: 65 PA: 144 QRS: 17 T: 34 INTERPRETIVE STATEMENTS: Normal sinus rhythm Low voltage QRS Cannot rule out Anterior infarct, age undetermined Abnormal ECG Compared to ECG 07/11/2018 16:55:22 Low QRS voltage now present Atrial premature complex(es) no longer present Myocardial infarct finding still present Electronically Signed On 08-10-18 13:58:33 BOOK PUBLISHER by Malik Oshea
[2018-08-10 15:13] VITALS: TEMP 98.2
[2018-08-10 15:14] VITALS: BP 131/76; O2SAT 97
== END 2018-08-10 14:58 | disposition short-term general hospital (02) ==
LOC: ER 09:07
DX: E86.0 Dehydration (principal); K59.00 Constipation, unspecified; I10 Essential (primary) hypertension; E11.9 Type 2 diabetes mellitus without complications; E78.00 Pure hypercholesterolemia, unspecified; F03.90 Unspecified dementia, unspecified severity, without behavioral disturbance, psychotic disturbance, mood disturbance, and anxiety; F32.9 Major depressive disorder, single episode, unspecified; G82.20 Paraplegia, unspecified; Z79.4 Long term (current) use of insulin; Z79.82 Long term (current) use of aspirin; Z88.5 Allergy status to narcotic agent
CPT/HCPCS: 36415; 74177; 80048; 80076; 82271; 82805; 83690; 83986; 85025; 85610; 85730; 86850; 86900; 86901; 93005; C9113; Q9967

== ENCOUNTER 2018-11-04 15:50 | Inpatient (IN) | payer OTHER ==
--- OUTSIDE RECORDS SUMMARY | 2018-11-04 15:52 | XMS REPORT | Clinical Summary ---
:1940 Author Organization [facility] Address [address] [place] [address] Care Team Providers Name Role Phone Cielo Alejandro Primary Care Provider Allergies Active Allergy Reactions Severity Noted Date Comments Butorphanol Tartrate 07/12/2018 Midazolam 07/12/2018 Medications Medication Sig Dispensed Refills Start Date End Date Status ascorbic acid, vitamin Take 1 tablet 30 tablet 0 07/15/2018 08/14/2018 C, (VITAMIN C) 500 MG (500 mg total) tablet by mouth daily for 30 days. atorvastatin (LIPITOR) Take 1 tablet 30 tablet 0 07/15/2018 08/14/2018 80 MG tablet (80 mg total) by mouth nightly for 30 days. cyclobenzaprine Take 1 tablet 30 tablet 0 07/15/2018 07/25/2018 (FLEXERIL) 10 MG (10 mg total) tablet by mouth 3 (three) times daily as needed for Muscle spasms for up to 10 days. doxycycline (MONODOX) Take 1 capsule 14 capsule 0 07/15/2018 07/22/2018 100 MG capsule (100 mg total) by mouth every 12 (twelve) hours for 7 days. PARoxetine (PAXIL) 10 Take 1 tablet 30 tablet 0 07/15/2018 08/14/2018 MG tablet (10 mg total) by mouth daily for 30 days. zinc sulfate (ZINCATE) Take 1 capsule 30 capsule 0 07/15/2018 08/14/2018 220 (50) mg capsule (220 mg total) by mouth daily for 30 days. pantoprazole Take 1 tablet 30 tablet 0 07/15/2018 08/14/2018 (PROTONIX) 40 MG (40 mg total) tablet by mouth daily for 30 days. aspirin 81 MG chewable Take 1 tablet 30 tablet 0 07/15/2018 08/14/2018 tablet (81 mg total) by mouth daily for 30 days. Active Problems Problem Noted Date Heel ulcer 08/10/2018 CVA, old, aphasia 08/10/2018 Dysphagia as late effect of cerebrovascular accident (CVA) 08/10/2018 Severe protein-calorie malnutrition 08/10/2018 Physical deconditioning 08/10/2018 Infection of PEG site 07/12/2018 Anemia 07/12/2018 GI bleed 07/11/2018 Encounters Date Type Specialty Care Team Description 08/10/2018 [facility] Internal Tirukkovalluri, Anemia, unspecified - Encounter Medicine MD Kiersten type 08/11/2018 Silas Joyner III, MD 07/13/2018 Surgery Gastroenterology Malik Gonsales UPPER ENDOSCOPY MD Juan Manuel 07/13/2018 Anesthesia Event Gastroenterology Mita Banuelos MD 07/11/2018 [facility] Internal [facility] [place] Gastrointestinal hemorrhage associated with gastrojejunal ulcer; - Encounter Medicine MD Ama Abdominal wall cellulitis; 07/15/2018 Tazn, History of CVA with residual deficit; [place] Severe protein-calorie malnutrition (HCC); MD Daniel Sacral decubitus ulcer, stage III (HCC); Donovan Ledezmaison Blood loss anemia; MD Pippa Gastrointestinal hemorrhage, unspecified gastrointestinal hemorrhage type after 11/03/2017 Social History Tobacco Use Types Packs/Day Years Used Date Unknown If Ever Smoked Sex Assigned at Date Recorded Not on file Job Start Date Occupation Industry Not on file Not on file Not on file Travel History Travel Start Travel End No recent travel history available. Last Filed Vital Signs Vital Sign Reading Time Taken Blood Pressure 144/66 08/11/2018 3:08 PM [facility] Pulse 92 08/11/2018 3:08 PM [facility] Temperature 35.6 C (96 F) 08/11/2018 3:08 PM [facility] RE[facility] Respiratory Rate 18 08/11/2018 3:08 PM [facility] Oxygen Saturation 95% 08/11/2018 3:08 PM [facility] RE[facility] Inhaled Oxygen Concentration 21% 07/14/2018 3:52 PM [facility] RE[facility] Weight 60.8 kg (134 lb 0.6 oz) 08/10/2018 5:00 PM [facility] Height - - Body Mass Index - - Plan of Treatment Not on file Procedures Procedure Name Priority Date/Time Associated Comments Diagnosis RHYTHM STRIP - SCAN 10/15/2018 9:20 AM CDT HEMOGLOBIN AND Routine 08/11/2018 12:31 Results for this HEMATOCRIT PM [facility] RE[facility]TER procedure are in the results section. POCT-GLUCOSE METER Routine 08/11/2018 11:51 Results for this AM [facility] procedure are in the results section. POCT-GLUCOSE METER Routine 08/11/2018 6:16 Results for this AM [facility] procedure are in the results section. CBC W/PLT COUNT & AUTO Routine 08/11/2018 1:57 Results for this DIFFERENTIAL AM [facility] [employer] procedure are in the results section. CBC W/PLT COUNT & AUTO Routine 08/11/2018 1:57 Results for this DIFFERENTIAL AM [facility] [employer] procedure are in the results section. PHOSPHORUS Routine 08/11/2018 1:57 Results for this AM [facility] [employer] procedure are in the results section. MAGNESIUM Routine 08/11/2018 1:57 Results for this AM [facility] procedure are in the results section. CALCIUM, IONIZED Routine 08/11/2018 1:57 Results for this AM [facility] procedure are in the results section. HEMOGLOBIN A1C Routine 08/11/2018 1:57 Results for this AM [facility] procedure are in the results section. BASIC METABOLIC PANEL Routine 08/11/2018 1:57 Results for this (7) AM [facility] procedure are in the results section. HEMOGLOBIN AND Routine 08/11/2018 1:57 Results for this HEMATOCRIT AM [facility] RE[employer] procedure are in the results section. POCT-GLUCOSE METER Routine 08/11/2018 1:35 Results for this AM [facility] procedure are in the results section. POCT-GLUCOSE METER Routine 08/10/2018 10:54 Results for this PM [facility] procedure are in the results section. CBC W/PLT COUNT & AUTO STAT 08/10/2018 6:20 Results for this DIFFERENTIAL PM [facility] RE[facility] procedure are in the results section. HEMOGLOBIN AND Routine 08/10/2018 6:20 Results for this HEMATOCRIT PM [facility] RE[employer] procedure are in the results section. HEMOGLOBIN A1C AP Routine 08/10/2018 6:20 Results for this PM [facility] [employer] procedure are in the results section. PHOSPHORUS STAT 08/10/2018 6:20 Results for this PM [facility] procedure are in the results section. MAGNESIUM STAT 08/10/2018 6:20 Results for this PM [facility] procedure are in the results section. COMPREHENSIVE STAT 08/10/2018 6:20 Results for this METABOLIC PANEL PM [facility] REPOR[facility] procedure are in the results section. CBC W/PLT COUNT & AUTO STAT 08/10/2018 6:20 Results for this DIFFERENTIAL PM [facility] [employer] procedure are in the results section. POCT-GLUCOSE METER Routine 08/10/2018 4:38 Results for this PM [facility] [employer] procedure are in the results section. RHYTHM STRIP - SCAN 08/02/2018 8:20 AM [facility]ANSARD REPORTER TRANSFUSION SERVICE 07/16/2018 6:01 REPORT - SCAN PM [facility]ARD REPORTER PREPARE LEUKO-REDUCED Routine 07/15/2018 11:54 Results for this RBC PM [facility]ARD REPORTER procedure are in the results section. TRANSFUSION SERVICE 07/15/2018 6:01 REPORT - SCAN PM [facility] RE[facility]TER POCT-GLUCOSE METER Routine 07/15/2018 8:18 Results for this AM [facility] procedure are in the results section. CBC W/PLT COUNT & AUTO Routine 07/15/2018 7:11 Results for this DIFFERENTIAL AM [facility] RE[facility] procedure are in the results section. BASIC METABOLIC PANEL Routine 07/15/2018 7:11 Results for this (7) AM [facility] procedure are in the results section. HAPTOGLOBIN Routine 07/15/2018 7:11 Results for this AM [facility] REPOR[facility] procedure are in the results section. CBC W/PLT COUNT & AUTO Routine 07/15/2018 7:11 Results for this DIFFERENTIAL AM [facility] RE[facility] procedure are in the results section. POCT-GLUCOSE METER Routine 07/15/2018 6:37 Results for this AM [facility] procedure are in the results section. POCT-GLUCOSE METER Routine 07/14/2018 11:36 Results for this PM [facility] procedure are in the results section. POCT-GLUCOSE METER Routine 07/14/2018 5:23 Results for this PM [facility] RE[facility] procedure are in the results section. BASIC METABOLIC PANEL Routine 07/14/2018 3:47 Results for this (7) PM [facility] procedure are in the results section. PERIPHERAL BLOOD SMEAR AP Routine 07/14/2018 3:47 Results for this - PATHOLOGIST REVIEW PM [facility] RE[facility] procedure are in the results section. RETICULOCYTE COUNT Routine 07/14/2018 3:47 Results for this PM [facility] procedure are in the results section. CBC W/PLT COUNT & AUTO Routine 07/14/2018 1:03 Results for this DIFFERENTIAL PM [facility] RE[employer] procedure are in the results section. HEPATIC FUNCTION PANEL Routine 07/14/2018 1:03 Results for this PM [facility] [employer] procedure are in the results section. CBC W/PLT COUNT & AUTO Routine 07/14/2018 1:03 Results for this DIFFERENTIAL PM [facility] RE[facility] procedure are in the results section. LACTATE DEHYDROGENASE Routine 07/14/2018 1:03 Results for this (LDH) PM [facility] RE[employer] procedure are in the results section. TRANSFUSE Routine 07/14/2018 12:32 LEUKO-REDUCED RED PM [facility]ARD REPORTER BLOOD CELLS POCT-GLUCOSE METER Routine 07/14/2018 12:01 Results for this PM [facility] procedure are in the results section. VANCOMYCIN LEVEL, Routine 07/14/2018 8:37 Results for this RANDOM AM [facility] RE[employer] procedure are in the results section. POCT-GLUCOSE METER Routine 07/14/2018 6:45 Results for this AM [facility] procedure are in the results section. CBC W/PLT COUNT & AUTO Routine 07/14/2018 6:10 Results for this DIFFERENTIAL AM [facility] RE[employer] procedure are in the results section. MAGNESIUM Routine 07/14/2018 6:10 Results for this AM [facility] procedure are in the results section. BASIC METABOLIC PANEL Routine 07/14/2018 6:10 Results for this (7) AM [facility] procedure are in the results section. CBC W/PLT COUNT & AUTO Routine 07/14/2018 6:10 Results for this DIFFERENTIAL AM [facility] RE[facility] procedure are in the results section. POCT-GLUCOSE METER Routine 07/14/2018 1:16 Results for this AM [facility] procedure are in the results section. VANCOMYCIN LEVEL, Timed 07/13/2018 9:11 Results for this TROUGH PM [facility] REPOR[facility] procedure are in the results section. TRANSFUSION SERVICE 07/13/2018 6:03 REPORT - SCAN PM [facility] RE[facility]TER POCT-GLUCOSE METER Routine 07/13/2018 5:42 Results for this PM [facility] procedure are in the results section. POCT-GLUCOSE METER Routine 07/13/2018 3:39 Results for this PM [facility] RE[employer] procedure are in the results section. REPORT OF PROCEDURE - 07/13/2018 3:20 ENDOSCOPY URL PM [facility]ARD REPORTER UPPER ENDOSCOPY 07/13/2018 3:00 Melena PM [facility]ARD REPORTER POCT-GLUCOSE METER Routine 07/13/2018 11:58 Results for this AM [facility] RE[employer] procedure are in the results section. (CELLAVISION MANUAL Routine 07/13/2018 5:54 Results for this DIFF) AM [facility] REPORTER procedure are in the results section. CBC W/PLT COUNT & AUTO Routine 07/13/2018 5:54 Results for this DIFFERENTIAL AM [facility] RE[facility] procedure are in the results section. MAGNESIUM Routine 07/13/2018 5:54 Results for this AM [facility] RE[employer] procedure are in the results section. BASIC METABOLIC PANEL Routine 07/13/2018 5:54 Results for this (7) AM [facility] procedure are in the results section. CBC W/PLT COUNT & AUTO Routine 07/13/2018 5:54 Results for this DIFFERENTIAL AM [facility] [employer] procedure are in the results section. POCT-GLUCOSE METER Routine 07/13/2018 5:49 Results for this AM [facility] RE[employer] procedure are in the results section. POCT-GLUCOSE METER Routine 07/13/2018 12:11 Results for this AM [facility] RE[employer] procedure are in the results section. POCT-GLUCOSE METER Routine 07/12/2018 6:40 Results for this PM [facility] REPOR[facility] procedure are in the results section. POCT-GLUCOSE METER Routine 07/12/2018 12:43 Results for this PM [facility] procedure are in the results section. ECG 12-LEAD Routine 07/12/2018 9:22 Results for this AM [facility] RE[facility] procedure are in the results section. POCT-GLUCOSE METER Routine 07/12/2018 7:37 Results for this AM [facility] procedure are in the results section. (CELLAVISION MANUAL Routine 07/12/2018 6:21 Results for this DIFF) AM [facility] REPOR[facility] procedure are in the results section. CBC W/PLT COUNT & AUTO Routine 07/12/2018 6:21 Results for this DIFFERENTIAL AM [facility] [employer] procedure are in the results section. TYPE AND SCREEN, Routine 07/12/2018 6:21 Results for this AUTOMATED AM [facility] RE[employer] procedure are in the results section. MAGNESIUM Routine 07/12/2018 6:21 Results for this AM [facility] [employer] procedure are in the results section. BASIC METABOLIC PANEL Routine 07/12/2018 6:21 Results for this (7) AM [facility] procedure are in the results section. CBC W/PLT COUNT & AUTO Routine 07/12/2018 6:21 Results for this DIFFERENTIAL AM [facility] RE[employer] procedure are in the results section. after 11/03/2017 Results RHYTHM STRIP - SCAN (10/15/2018 9:20 AM CDT)Only the most recent of2 resultswithin the time period is included. Narrative Performed At Hemoglobin and hematocrit (08/11/2018 12:31 PM HANSARD REPORTER)Only the most recent of3 resultswithin the time period is included. Hemoglobin 9.2 (L) 13.7 - 17.5 GM/DL [facility] Hematocrit 30.1 (L) 40.1 - 51.0 % [facility] Specimen Blood - Arm, Left Performing Organization Address [facility] Phone Number [address] [phone] CENTER POC-Glucose meter (08/11/2018 11:51 AM HANSARD REPORTER)Only the most recent of20 resultswithin the time period is included. POC-Glucose Meter 98Comment: TESTED AT 70 - 110 mg/dL [address] [address] Specimen Blood Performing Organization Address [facility] Phone Number [address] [address] [place] Calcium, Ionized (08/11/2018 1:57 AM HANSARD REPORTER) Calcium, Ion 1.09 (L) 1.12 - 1.27 mmol/L [facility] pH, Blood 7.44 [facility] Specimen Blood - Arm, Left Performing Organization Address [facility] Phone Number [address] [address] [place] CBC with platelet count + automated diff (08/11/2018 1:57 AM HANSARD REPORTER)Only the most recent of7 resultswithin the time period is included. WBC 10.1 3.5 - 10.5 K/L [facility] RBC 3.54 (L) 4.63 - 6.08 M/L [facility] Hemoglobin 9.8 (L) 13.7 - 17.5 GM/DL [facility] Hematocrit 31.9 (L) 40.1 - 51.0 % [facility] MCV 90.1 79.0 - 92.2 fL [facility] MCH 27.7 25.7 - 32.2 pg [facility] MCHC 30.7 (L) 32.3 - 36.5 GM/DL [facility] RDW 17.7 (H) 11.6 - 14.4 % [facility] Platelets 209 150 - 450 K/CU MM [facility] MPV 9.9 9.4 - 12.4 fL [facility] nRBC 0 0 - 0 /100 WBC [facility] % Neutros 77 % [facility] % Lymphs 11 % [facility] % Monos 10 % [facility] % Eos 2 % [facility] % Baso 0 % [facility] # Neutros 7.78 (H) 1.78 - 5.38 K/L [facility] # Lymphs 1.07 (L) 1.32 - 3.57 K/L [facility] # Monos 1.04 (H) 0.30 - 0.82 K/L [facility] # Eos 0.17 0.04 - 0.54 K/L [facility] # Baso 0.02 0.01 - 0.08 K/L [facility] Immature Granulocytes-Relative 0 0 - 1 % [facility] Specimen Blood - Arm, Left Performing Organization Address City/[facility]/Zipcode Phone Number [facility] [address] [place] [address] CENTER Phosphorus (08/11/2018 1:57 AM HANSARD REPORTER)Only the most recent of2 resultswithin the time period is included. Phosphorus 3.2 2.3 - 4.7 mg/dL [facility] Specimen Blood - Arm, Left Performing Organization Address City/[facility]/Zipcode Phone Number [facility] [address] CENTER Magnesium (08/11/2018 1:57 AM HANSARD REPORTER)Only the most recent of5 resultswithin the time period is included. Magnesium 1.8 1.6 - 2.6 mg/dL [facility] Specimen Blood - Arm, Left Performing Organization Address [facility] Phone Number [address] [address] [place] Hemoglobin A1c (08/11/2018 1:57 AM HANSARD REPORTER)Only the most recent of2 resultswithin the time period is included. Hemoglobin A1C 6.4 (H) 4.3 - 6.1 % [facility] Specimen Blood - Arm, Left Performing Organization Address [facility] Phone Number [address] [phone] [place] Basic metabolic panel (08/11/2018 1:57 AM HANSARD REPORTER)Only the most recent of6 resultswithin the time period is included. Sodium 134 (L) 136 - 145 meq/L [facility] Potassium 4.2 3.5 - 5.1 meq/L [facility] Chloride 102 98 - 107 meq/L [facility] CO2 27 22 - 29 meq/L [facility] BUN 24 (H) 7 - 21 mg/dL [facility] Creatinine 1.31 (H) 0.57 - 1.25 mg/dL [facility] Glucose 77 70 - 105 mg/dL [facility] Calcium 8.6 8.4 - 10.2 mg/dL [facility] EGFR 64Comment: ESTIMATED GFR IS mL/min/1.73 sq m [facility] NOT ACCURATE [facility] CLEARANCE IN PREDICTING GLOMERULAR FILTRATION RATE. ESTIMATED GFR IS NOT APPLICABLE FOR DIALYSIS PATIENTS. Specimen Blood - Arm, Left Performing Organization Address [facility]/Zipcode Phone Number [facility] [address] [place] [address] [phone] [place] Comprehensive metabolic panel (08/10/2018 6:20 PM HANSARD REPORTER) Protein, Total 7.4 6.0 - 8.3 gm/dL [facility] Albumin 2.1 (L) 3.5 - 5.0 g/dL [facility] Alkaline Phosphatase 142 40 - 150 U/L [facility] Total Bilirubin 0.2 0.2 - 1.2 mg/dL [facility] Sodium 136 136 - 145 meq/L [facility] Potassium 4.0 3.5 - 5.1 meq/L [facility] Chloride 102 98 - 107 meq/L [facility] CO2 29 22 - 29 meq/L [facility] BUN 27 (H) 7 - 21 mg/dL [facility] Creatinine 1.33 (H) 0.57 - 1.25 mg/dL [facility] Glucose 51 (L) 70 - 105 mg/dL [facility] Calcium 8.6 8.4 - 10.2 mg/dL [facility] AST 37 (H) 5 - 34 U/L [facility] ALT 27 6 - 55 U/L [facility] EGFR 63Comment: ESTIMATED GFR mL/min/1.73 sq m [facility] IS NOT ACCURATE [facility] CREATININE CLEARANCE IN PREDICTING GLOMERULAR FILTRATION RATE. ESTIMATED GFR IS NOT APPLICABLE FOR DIALYSIS PATIENTS. Specimen Blood Performing Organization Address City/State/Zipcode Phone Number [place] [phone] [place] [address] [phone] [place] TRANSFUSION SERVICE REPORT - SCAN (07/16/2018 6:01 PM HANSARD REPORTER)Only the most recent of3 resultswithin the time period is included. Narrative Performed At Prepare Leuko-Red RBC (07/15/2018 11:54 PM HANSARD REPORTER) CROSSMATCH COMPATIBLE SAFETRACE TX Unit ABO O Pos SAFETRACE TX UNIT NUMBER [id number] [place]ET[place]ACE TX Status TRANSFUSED SAFET[employer]ACE TX Blood Bank Product RED BLOOD CELLS [employer]AFET[employer]ACE TX PRODUCT CODE [id number] [place] [place] Specimen Other Performing Organization Address [facility] Phone Number [employer] [place] Haptoglobin (07/15/2018 7:11 AM HANSARD REPORTER) Haptoglobin 185 14 - 258 mg/dL [facility] Specimen Blood Performing Organization Address [facility] Phone Number [address] [address] CENTER Peripheral Blood Smear - Path Review (07/14/2018 3:47 PM HANSARD REPORTER) RBC Morphology Polychromasia [facility] Anisocytosis [facility] Poikilocytosis WBC Morphology Toxic Granulation [facility] Pathologist Review Cell counts confirmed. [facility] Pathologist: Rafaela Dowell M.D. [facility] (electronic signature) [facility] Specimen Blood - Arm, Right Performing Organization Address [facility] Phone Number [address] [address] CENTER Reticulocyte count (07/14/2018 3:47 PM HANSARD REPORTER) % Retic 2.3 (H) 0.5 - 1.8 % [facility] Specimen Blood - Arm, Right Performing Organization Address [facility] Phone Number [address] [address] [phone] CENTER Lactate dehydrogenase (LDH) (07/14/2018 1:03 PM HANSARD REPORTER) LDH 338 (H)Comment: Specimen 125 - 220 U/L [facility] slightly hemolyzed [facility] Specimen Blood Performing Organization Address [facility]/State/Zipcode Phone Number [address] [address] [phone] [place] Hepatic function panel (07/14/2018 1:03 PM HANSARD REPORTER) Protein, Total 4.8 (L)Comment: Specimen 6.0 - 8.3 gm/dL [facility] hemolyzed [facility] Albumin 1.2 (L)Comment: Specimen 3.5 - 5.0 g/dL [facility] slightly hemolyzed [facility] Total Bilirubin 0.2Comment: Specimen 0.2 - 1.2 mg/dL [facility] Bilirubin, Direct 0.1Comment: Specimen 0.1 - 0.5 mg/dL [facility] Phosphatase 74 40 - 150 U/L [facility] AST 38 (H)Comment: Specimen 5 - 34 U/L [facility] hemolyzed [facility] ALT 19Comment: Specimen 6 - 55 U/L [facility] hemolyzed [facility] Specimen Blood Performing Organization Address [facility] Phone Number [address] [address] [place] Transfuse Leuko-Red RBC (07/14/2018 12:32 PM HANSARD REPORTER)Only the most recent of2 resultswithin the time period is included.Vancomycin level, random (07/14/2018 8:37 AM HANSARD REPORTER) Vancomycin Rm 22.6 ug/mL [facility] Specimen Blood - Arm, Left Narrative Performed At Reference Range: No Normals [facility] Performing Organization Address [facility]/Zipcode Phone Number [address] [address] [place] Vancomycin level, trough (07/13/2018 9:11 PM HANSARD REPORTER) Vancomycin Tr 26.3 (H) 10.0 - 20.0 ug/mL [facility] Specimen Blood Narrative Performed At WAIT FOR LEVEL TO RETURN BEFORE GIVING DOSE. [facility] If vancomycin trough level > 20, HOLD dose and contact MD and pharmacist. Performing Organization Address City/State/Zipcode Phone Number [facility] [address] [place] [address] CENTER REPORT OF PROCEDURE - ENDOSCOPY URL (07/13/2018 3:20 PM HANSARD REPORTER) Narrative Performed At Manual Differential (07/13/2018 5:54 AM HANSARD REPORTER)Only the most recent of2 resultswithin the time period is included. % Neutros 89 % [facility] % Lymphs 5 % [facility] % Monos 5 % [facility] % Atypical Lymphs 1 (H) 0 - 0 % [facility] # Neutros 11.21 (H) 1.78 - 5.38 K/ul [facility] # Lymphs 0.63 (L) 1.32 - 3.57 K/ul [facility] # Monos 0.63 0.30 - 0.82 K/uL [facility] # Atypical Lymphs 0.13 (H) 0.00 - 0.00 K/uL [facility] Total Counted 100 [facility] Platelet Morphology Normal [facility] Smudge Cells Present [facility] Anisocytosis 1+ few [facility] Poikilocytes 2+ moderate [facility] [place] Cells 1+ few [facility] Platelet Conc Adequate [facility] Specimen Blood Narrative Performed At Received comment: [facility] User comments: Slide comments: Performing Organization Address City/State/Zipcode Phone Number [facility] [address] [place] [address] CENTER ECG 12 lead (07/12/2018 9:22 AM HANSARD REPORTER) Narrative Performed At Ventricular Rate 100 BPM GE MUSE Atrial Rate 100 BPM P-R Interval 148 ms QRS Duration 90 ms Q-T Interval 344 ms QTC Calculation(Bazett) 443 ms P [place] 59 degrees R [place] -12 degrees T [place] 9 degrees Sinus rhythm with premature artial complexes Inferior infarct , age undetermined Abnormal ECG No previous ECGs available Confirmed by MD MARYJANE, IHAB ([id number]) on 07/13/2018 7:29:33 AM Procedure Note Interface, External Ris In - 07/13/2018 7:29 AM HANSARD REPORTER Ventricular Rate 100 BPM Atrial Rate 100 BPM P-R Interval 148 ms QRS Duration 90 ms Q-T Interval 344 ms QTC Calculation(Bazett) 443 ms P [place] 59 degrees R [place] -12 degrees T [place] 9 degrees Sinus rhythm with premature artial complexes Inferior infarct , age undetermined Abnormal ECG No previous ECGs available Confirmed by MD MARYJANE, IHAB ([id number]) on 07/13/2018 7:29:33 AM Performing Organization Address City/[facility]/Zipcode Phone Number GE MUSE Type and screen, automated (07/12/2018 6:21 AM HANSARD REPORTER) ABO/RH AUTOMATED (BEAKER) O POSITIVE [facility] Ab Scrn NEGATIVE [facility] Specimen Blood Performing Organization Address City/[facility]/Zipcode Phone Number [facility] [address] [place] [address] [phone] after 11/03/2017 Insurance Payer Benefit Plan / Group Subscriber ID Type Phone Address MEDICARE MEDICARE A B xxxxxxxxxxx Medicare MEDICAID [place] xxxxxxxxx Medicaid Advance Directives For more information, please contact:[place] [address] [address]ñ[place]zaLa [place], [place] [phone] Code Status Date Activated Date Inactivated Comments Full Code 08/10/2018 8:12 PM This code status was determined by: Patient Full Code 07/11/2018 10:34 PM 08/10/2018 4:09 PM This code status was determined by: Patient
--- OUTSIDE RECORDS SUMMARY | 2018-11-04 15:53 | XMS REPORT ---
:1940 [facility] [address] [place] [id number] Care Team Providers Name Role Phone RODNEY LUQUEKSHMI Unavailable Unavailable NALAM, JOSIANE CESAR Unavailable Unavailable Problems This patient has no known problems. Allergies, Adverse Reactions, Alerts This patient has no known allergies or adverse reactions. Medications This patient has no known medications. Results Test Description Test Time Test Comments Text Results Atomic Results Result Comments HEMOGLOBIN A1C 2018-08-11 13:06:00 Test Item Value Reference Range Comments HEMOGLOBIN A1C (BEAKER) (test papx=123) 6.4 % 4.3-6.1 HEMOGLOBIN [id number] 13:06:00 Test Item Value Reference Range Comments HEMOGLOBIN A1C (BEAKER) (test ygdv=185) 6.3 % 4.3-6.1 HEMOGLOBIN AND [id number] 12:45:00 Test Item Value Reference Range Comments HEMOGLOBIN (BEAKER) (test nslb=838) 9.2 GM/DL 13.7-17.5 HEMATOCRIT (BEAKER) (test ntdf=003) 30.1 % 40.1-51.0 POCT-GLUCOSE [id number] 12:00:00 Test Item Value Reference Range Comments POC-GLUCOSE METER (BEAKER) 98 mg/dL 70-110 TESTED AT [place] [id number] [facility] (test odqs=9310) [facility] [address] POCT-GLUCOSE [id number] 06:19:00 Test Item Value Reference Range Comments POC-GLUCOSE METER (BEAKER) 120 mg/dL 70-110 TESTED AT [place] [id number] [facility] (test xzgz=2625) [facility] [address] [id number] 02:40:00 Test Item Value Reference Range Comments PHOSPHORUS (BEAKER) (test yjwo=703) 3.2 mg/dL 2.3-4.7 [id number] 02:40:00 Test Item Value Reference Range Comments MAGNESIUM (BEAKER) (test kqmb=517) 1.8 mg/dL 1.6-2.6 BASIC METABOLIC [id number] 02:40:00 Test Item Value Reference Range Comments SODIUM (BEAKER) (test 134 meq/L 136-145 stdc=013) POTASSIUM (BEAKER) (test 4.2 meq/L 3.5-5.1 acwy=007) CHLORIDE (BEAKER) (test 102 meq/L 98-107 slqd=338) CO2 (BEAKER) (test 27 meq/L 22-29 zlrs=050) BLOOD UREA NITROGEN 24 mg/dL 7-21 (BEAKER) (test wyaz=347) CREATININE (BEAKER) (test 1.31 mg/dL 0.57-1.25 gjzj=035) GLUCOSE RANDOM (BEAKER) 77 mg/dL 70-105 (test jlnk=419) CALCIUM (BEAKER) (test 8.6 mg/dL 8.4-10.2 fawq=264) EGFR (BEAKER) (test 64 mL/min/1.73 sq m ESTIMATED GFR IS NOT mqms=6656) ACCURATE CREATININE CLEARANCE IN PREDICTING GLOMERULAR FILTRATION RATE. ESTIMATED GFR IS NOT APPLICABLE FOR DIALYSIS PATIENTS. CALCIUM, [id number] 02:18:00 Test Item Value Reference Range Comments CALCIUM IONIZED (BEAKER) (test dgcy=820) 1.09 mmol/L 1.12-1.27 PH, BLOOD (BEAKER) (test lxbh=9066) 7.44 HEMOGLOBIN AND [id number] 02:10:00 Test Item Value Reference Range Comments HEMOGLOBIN (BEAKER) (test lgpf=562) 9.8 GM/DL 13.7-17.5 HEMATOCRIT (BEAKER) (test xhgf=998) 31.9 % 40.1-51.0 CBC W/PLT COUNT & AUTO [id number] 02:10:00 Test Item Value Reference Range Comments WHITE BLOOD CELL COUNT (BEAKER) (test lgwq=043) 10.1 K/ L 3.5-10.5 RED BLOOD CELL COUNT (BEAKER) (test qrcp=175) 3.54 M/ L 4.63-6.08 HEMOGLOBIN (BEAKER) (test xjbv=394) 9.8 GM/DL 13.7-17.5 HEMATOCRIT (BEAKER) (test tvdx=828) 31.9 % 40.1-51.0 MEAN CORPUSCULAR VOLUME (BEAKER) (test wbws=071) 90.1 fL 79.0-92.2 MEAN CORPUSCULAR HEMOGLOBIN (BEAKER) (test 27.7 pg 25.7-32.2 lrqx=833) MEAN CORPUSCULAR HEMOGLOBIN CONC (BEAKER) (test 30.7 GM/DL 32.3-36.5 nzpz=180) RED CELL DISTRIBUTION WIDTH (BEAKER) (test 17.7 % 11.6-14.4 nvjv=106) PLATELET COUNT (BEAKER) (test yipu=136) 209 K/CU MM 150-450 MEAN PLATELET VOLUME (BEAKER) (test byvx=085) 9.9 fL 9.4-12.4 NUCLEATED RED BLOOD CELLS (BEAKER) (test 0 /100 WBC 0-0 bsrc=845) NEUTROPHILS RELATIVE PERCENT (BEAKER) (test 77 % wwiz=200) LYMPHOCYTES RELATIVE PERCENT (BEAKER) (test 11 % hbxj=295) MONOCYTES RELATIVE PERCENT (BEAKER) (test 10 % lgjh=230) EOSINOPHILS RELATIVE PERCENT (BEAKER) (test 2 % appj=440) BASOPHILS RELATIVE PERCENT (BEAKER) (test 0 % rouc=667) NEUTROPHILS ABSOLUTE COUNT (BEAKER) (test 7.78 K/ L 1.78-5.38 kqnc=796) LYMPHOCYTES ABSOLUTE COUNT (BEAKER) (test 1.07 K/ L 1.32-3.57 nisu=202) MONOCYTES ABSOLUTE COUNT (BEAKER) (test 1.04 K/ L 0.30-0.82 qeeg=463) EOSINOPHILS ABSOLUTE COUNT (BEAKER) (test 0.17 K/ L 0.04-0.54 eocm=742) BASOPHILS ABSOLUTE COUNT (BEAKER) (test 0.02 K/ L 0.01-0.08 vmmt=830) IMMATURE GRANULOCYTES-RELATIVE PERCENT (BEAKER) 0 % 0-1 (test yjdq=1497) POCT-GLUCOSE [id number] 01:36:00 Test Item Value Reference Range Comments POC-GLUCOSE METER (BEAKER) 97 mg/dL 70-[address] [facility] [address] [facility] (test crav=9392) [facility] [address] POCT-GLUCOSE [id number] 22:56:00 Test Item Value Reference Range Comments POC-GLUCOSE METER (BEAKER) 70 mg/dL 70-[address] [facility] [address] (test zaiq=7876) [facility] [address] [id number] 19:59:00 Test Item Value Reference Range Comments PHOSPHORUS (BEAKER) (test qnou=753) 3.2 mg/dL 2.3-4.7 [id number] 19:59:00 Test Item Value Reference Range Comments MAGNESIUM (BEAKER) (test rman=777) 1.9 mg/dL 1.6-2.6 COMPREHENSIVE METABOLIC [id number] 19:59:00 Test Item Value Reference Range Comments TOTAL PROTEIN (BEAKER) 7.4 gm/dL 6.0-8.3 (test ohdy=098) ALBUMIN (BEAKER) (test 2.1 g/dL 3.5-5.0 twcd=3677) ALKALINE PHOSPHATASE 142 U/L 40-150 (BEAKER) (test jxun=467) BILIRUBIN TOTAL (BEAKER) 0.2 mg/dL 0.2-1.2 (test ivlm=548) SODIUM (BEAKER) (test 136 meq/L 136-145 zusb=149) POTASSIUM (BEAKER) (test 4.0 meq/L 3.5-5.1 exeb=922) CHLORIDE (BEAKER) (test 102 meq/L 98-107 pavf=395) CO2 (BEAKER) (test 29 meq/L 22-29 qckc=507) BLOOD UREA NITROGEN 27 mg/dL 7-21 (BEAKER) (test hscl=157) CREATININE (BEAKER) (test 1.33 mg/dL 0.57-1.25 jeol=778) GLUCOSE RANDOM (BEAKER) 51 mg/dL 70-105 (test zigb=867) CALCIUM (BEAKER) (test 8.6 mg/dL 8.4-10.2 xzkc=165) AST (SGOT) (BEAKER) (test 37 U/L 5-34 btlp=079) ALT (SGPT) (BEAKER) (test 27 U/L 6-55 jutd=965) EGFR (BEAKER) (test 63 mL/min/1.73 sq m ESTIMATED GFR IS NOT qynb=5694) ACCURATE CREATININE CLEARANCE IN PREDICTING GLOMERULAR FILTRATION RATE. ESTIMATED GFR IS NOT APPLICABLE FOR DIALYSIS PATIENTS. CBC W/PLT COUNT & AUTO [id number] 19:45:00 Test Item Value Reference Range Comments WHITE BLOOD CELL COUNT (BEAKER) (test qkmk=975) 10.5 K/ L 3.5-10.5 RED BLOOD CELL COUNT (BEAKER) (test dmur=063) 3.65 M/ L 4.63-6.08 HEMOGLOBIN (BEAKER) (test djao=471) 10.2 GM/DL 13.7-17.5 HEMATOCRIT (BEAKER) (test fhwo=172) 33.6 % 40.1-51.0 MEAN CORPUSCULAR VOLUME (BEAKER) (test jruc=112) 92.1 fL 79.0-92.2 MEAN CORPUSCULAR HEMOGLOBIN (BEAKER) (test 27.9 pg 25.7-32.2 ylrt=022) MEAN CORPUSCULAR HEMOGLOBIN CONC (BEAKER) (test 30.4 GM/DL 32.3-36.5 sgzl=058) RED CELL DISTRIBUTION WIDTH (BEAKER) (test 17.6 % 11.6-14.4 onvy=903) PLATELET COUNT (BEAKER) (test frup=642) 213 K/CU MM 150-450 MEAN PLATELET VOLUME (BEAKER) (test wzla=860) 10.7 fL 9.4-12.4 NUCLEATED RED BLOOD CELLS (BEAKER) (test 0 /100 WBC 0-0 esjw=432) NEUTROPHILS RELATIVE PERCENT (BEAKER) (test 81 % bqps=764) LYMPHOCYTES RELATIVE PERCENT (BEAKER) (test 8 % bvkt=447) MONOCYTES RELATIVE PERCENT (BEAKER) (test 9 % jvbl=228) EOSINOPHILS RELATIVE PERCENT (BEAKER) (test 2 % cezq=981) BASOPHILS RELATIVE PERCENT (BEAKER) (test 0 % guot=259) NEUTROPHILS ABSOLUTE COUNT (BEAKER) (test 8.47 K/ L 1.78-5.38 ddqm=696) LYMPHOCYTES ABSOLUTE COUNT (BEAKER) (test 0.79 K/ L 1.32-3.57 xsid=285) MONOCYTES ABSOLUTE COUNT (BEAKER) (test 0.96 K/ L 0.30-0.82 jeus=943) EOSINOPHILS ABSOLUTE COUNT (BEAKER) (test 0.22 K/ L 0.04-0.54 hkfo=066) BASOPHILS ABSOLUTE COUNT (BEAKER) (test 0.03 K/ L 0.01-0.08 cioc=110) IMMATURE GRANULOCYTES-RELATIVE PERCENT (BEAKER) 0 % 0-1 (test ffsz=7187) HEMOGLOBIN AND [id number] 19:43:00 Test Item Value Reference Range Comments HEMOGLOBIN (BEAKER) (test qbsr=412) 10.2 GM/DL 13.7-17.5 HEMATOCRIT (BEAKER) (test ovar=605) 33.6 % 40.1-51.0 POCT-GLUCOSE [id number] 16:53:00 Test Item Value Reference Range Comments POC-GLUCOSE METER (BEAKER) 83 mg/dL 70-110 TESTED AT [address] (test gbfx=9766) [place] [id number] PERIPHERAL BLOOD SMEAR - PATHOLOGIST [id number] 11:31:00 Test Item Value Reference Range Comments RBC MORPHOLOGY (BEAKER) Polychromasia (test jjhs=3797) RBC MORPHOLOGY (BEAKER) Anisocytosis (test ratz=75923) RBC MORPHOLOGY (BEAKER) Poikilocytosis (test yoqr=63656) WBC MORPHOLOGY (BEAKER) Toxic Granulation (test vfex=2859) PERIPHERAL SMR REVIEW Cell counts confirmed. (BEAKER) (test cgil=2732) [id number] Rafaela Dowell M.D. (electronic (BEAKER) (test hhmr=2446) signature) POCT-GLUCOSE [id number] 08:24:00 Test Item Value Reference Range Comments POC-GLUCOSE METER (BEAKER) 236 mg/dL 70-110 TESTED AT [address] (test oxyx=0765) [place] [id number] 07:35:00 Test Item Value Reference Range Comments HAPTOGLOBIN (BEAKER) (test jcmt=717) 185 mg/dL 14-258 BASIC METABOLIC [id number] 07:34:00 Test Item Value Reference Range Comments SODIUM (BEAKER) (test 141 meq/L 136-145 mapg=193) POTASSIUM (BEAKER) (test 4.2 meq/L 3.5-5.1 cpep=814) CHLORIDE (BEAKER) (test 112 meq/L 98-107 qfhf=942) CO2 (BEAKER) (test 26 meq/L 22-29 bkvp=094) BLOOD UREA NITROGEN 23 mg/dL 7-21 (BEAKER) (test qgnl=115) CREATININE (BEAKER) (test 1.23 mg/dL 0.57-1.25 rzqe=846) GLUCOSE RANDOM (BEAKER) 186 mg/dL 70-105 (test irfb=004) CALCIUM (BEAKER) (test 8.0 mg/dL 8.4-10.2 feah=509) EGFR (BEAKER) (test 69 mL/min/1.73 sq m ESTIMATED GFR IS NOT luri=6058) ACCURATE CREATININE CLEARANCE IN PREDICTING GLOMERULAR FILTRATION RATE. ESTIMATED GFR IS NOT APPLICABLE FOR DIALYSIS PATIENTS. CBC W/PLT COUNT & AUTO [id number] 07:21:00 Test Item Value Reference Range Comments WHITE BLOOD CELL COUNT (BEAKER) (test jbma=112) 8.9 K/ L 3.5-10.5 RED BLOOD CELL COUNT (BEAKER) (test nblg=768) 3.26 M/ L 4.63-6.08 HEMOGLOBIN (BEAKER) (test ajlm=307) 9.1 GM/DL 13.7-17.5 HEMATOCRIT (BEAKER) (test xkll=097) 29.6 % 40.1-51.0 MEAN CORPUSCULAR VOLUME (BEAKER) (test wioj=157) 90.8 fL 79.0-92.2 MEAN CORPUSCULAR HEMOGLOBIN (BEAKER) (test 27.9 pg 25.7-32.2 eomk=018) MEAN CORPUSCULAR HEMOGLOBIN CONC (BEAKER) (test 30.7 GM/DL 32.3-36.5 ltet=547) RED CELL DISTRIBUTION WIDTH (BEAKER) (test 17.9 % 11.6-14.4 jsmn=853) PLATELET COUNT (BEAKER) (test npzc=215) 211 K/CU MM 150-450 MEAN PLATELET VOLUME (BEAKER) (test piux=675) 10.3 fL 9.4-12.4 NUCLEATED RED BLOOD CELLS (BEAKER) (test 0 /100 WBC 0-0 cmix=335) NEUTROPHILS RELATIVE PERCENT (BEAKER) (test 73 % nucw=374) LYMPHOCYTES RELATIVE PERCENT (BEAKER) (test 12 % angi=293) MONOCYTES RELATIVE PERCENT (BEAKER) (test 12 % jgbo=058) EOSINOPHILS RELATIVE PERCENT (BEAKER) (test 2 % wewp=170) BASOPHILS RELATIVE PERCENT (BEAKER) (test 0 % dbrn=593) NEUTROPHILS ABSOLUTE COUNT (BEAKER) (test 6.49 K/ L 1.78-5.38 azyv=380) LYMPHOCYTES ABSOLUTE COUNT (BEAKER) (test 1.11 K/ L 1.32-3.57 fcjr=669) MONOCYTES ABSOLUTE COUNT (BEAKER) (test 1.08 K/ L 0.30-0.82 werq=300) EOSINOPHILS ABSOLUTE COUNT (BEAKER) (test 0.19 K/ L 0.04-0.54 nowr=467) BASOPHILS ABSOLUTE COUNT (BEAKER) (test 0.02 K/ L 0.01-0.08 tygw=836) IMMATURE GRANULOCYTES-RELATIVE PERCENT (BEAKER) 0 % 0-1 (test fqmc=0225) POCT-GLUCOSE [id number] 06:39:00 Test Item Value Reference Range Comments POC-GLUCOSE METER (BEAKER) 239 mg/dL 70-110 TESTED AT [address] (test dtar=9172) [place] [address] POCT-GLUCOSE [id number] 23:40:00 Test Item Value Reference Range Comments POC-GLUCOSE METER (BEAKER) 234 mg/dL 70-110 TESTED AT [address] (test ezcy=2649) [place] [id number] POCT-GLUCOSE [id number] 17:26:00 Test Item Value Reference Range Comments POC-GLUCOSE METER (BEAKER) 257 mg/dL 70-110 TESTED AT [address] (test unoz=9359) [facility] [address] BASIC METABOLIC [id number] 16:15:00 Test Item Value Reference Range Comments SODIUM (BEAKER) (test 140 meq/L 136-145 vhmo=354) POTASSIUM (BEAKER) (test 4.6 meq/L 3.5-5.1 tits=268) CHLORIDE (BEAKER) (test 111 meq/L 98-107 kqrw=677) CO2 (BEAKER) (test 25 meq/L 22-29 jrsd=417) BLOOD UREA NITROGEN 24 mg/dL 7-21 (BEAKER) (test dnsl=532) CREATININE (BEAKER) (test 1.21 mg/dL 0.57-1.25 sfhz=065) GLUCOSE RANDOM (BEAKER) 195 mg/dL 70-105 (test zkpw=992) CALCIUM (BEAKER) (test 8.2 mg/dL 8.4-10.2 ygmv=006) EGFR (BEAKER) (test 71 mL/min/1.73 sq m ESTIMATED GFR IS NOT jkuu=3436) ACCURATE CREATININE CLEARANCE IN PREDICTING GLOMERULAR FILTRATION RATE. ESTIMATED GFR IS NOT APPLICABLE FOR DIALYSIS PATIENTS. RETICULOCYTE [id number] 15:59:00 Test Item Value Reference Range Comments RETICULOCYTE COUNT PCT (BEAKER) (test jeqw=910) 2.3 % 0.5-1.8 HEPATIC FUNCTION [id number] 13:31:00 Test Item Value Reference Range Comments TOTAL PROTEIN (BEAKER) (test 4.8 gm/dL 6.0-8.3 Specimen slightly hemolyzed soif=673) ALBUMIN (BEAKER) (test 1.2 g/dL 3.5-5.0 Specimen slightly hemolyzed gyef=1903) BILIRUBIN TOTAL (BEAKER) (test 0.2 mg/dL 0.2-1.2 Specimen slightly hemolyzed ylbt=752) BILIRUBIN DIRECT (BEAKER) (test 0.1 mg/dL 0.1-0.5 Specimen slightly hemolyzed vbsx=907) ALKALINE PHOSPHATASE (BEAKER) 74 U/L 40-150 (test jjnq=803) AST (SGOT) (BEAKER) (test 38 U/L 5-34 Specimen slightly hemolyzed lkpb=414) ALT (SGPT) (BEAKER) (test 19 U/L 6-55 Specimen slightly hemolyzed jzla=241) LACTATE DEHYDROGENASE (LDH)[id number] 13:30:00 Test Item Value Reference Range Comments LACTATE DEHYDROGENASE (BEAKER) 338 U/L 125-220 Specimen slightly hemolyzed (test gybg=298) CBC W/PLT COUNT & AUTO [id number] 13:17:00 Test Item Value Reference Range Comments WHITE BLOOD CELL COUNT (BEAKER) (test gnsr=136) 11.2 K/ L 3.5-10.5 RED BLOOD CELL COUNT (BEAKER) (test kmde=279) 3.14 M/ L 4.63-6.08 HEMOGLOBIN (BEAKER) (test ctjo=611) 8.6 GM/DL 13.7-17.5 HEMATOCRIT (BEAKER) (test vfkj=152) 28.2 % 40.1-51.0 MEAN CORPUSCULAR VOLUME (BEAKER) (test muvv=833) 89.8 fL 79.0-92.2 MEAN CORPUSCULAR HEMOGLOBIN (BEAKER) (test 27.4 pg 25.7-32.2 dizx=915) MEAN CORPUSCULAR HEMOGLOBIN CONC (BEAKER) (test 30.5 GM/DL 32.3-36.5 eara=937) RED CELL DISTRIBUTION WIDTH (BEAKER) (test 17.2 % 11.6-14.4 nayi=870) PLATELET COUNT (BEAKER) (test hdeb=199) 196 K/CU MM 150-450 MEAN PLATELET VOLUME (BEAKER) (test bdic=283) 10.2 fL 9.4-12.4 NUCLEATED RED BLOOD CELLS (BEAKER) (test 0 /100 WBC 0-0 jyxv=272) NEUTROPHILS RELATIVE PERCENT (BEAKER) (test 79 % ddul=789) LYMPHOCYTES RELATIVE PERCENT (BEAKER) (test 9 % tbqe=383) MONOCYTES RELATIVE PERCENT (BEAKER) (test 11 % dvct=597) EOSINOPHILS RELATIVE PERCENT (BEAKER) (test 1 % bdjk=987) BASOPHILS RELATIVE PERCENT (BEAKER) (test 0 % faqw=385) NEUTROPHILS ABSOLUTE COUNT (BEAKER) (test 8.88 K/ L 1.78-5.38 cbis=019) LYMPHOCYTES ABSOLUTE COUNT (BEAKER) (test 0.96 K/ L 1.32-3.57 pgrb=938) MONOCYTES ABSOLUTE COUNT (BEAKER) (test 1.26 K/ L 0.30-0.82 sojp=735) EOSINOPHILS ABSOLUTE COUNT (BEAKER) (test 0.06 K/ L 0.04-0.54 pcqm=323) BASOPHILS ABSOLUTE COUNT (BEAKER) (test 0.02 K/ L 0.01-0.08 pnjp=739) IMMATURE GRANULOCYTES-RELATIVE PERCENT (BEAKER) 0 % 0-1 (test lkqc=5809) POCT-GLUCOSE [id number] 12:30:00 Test Item Value Reference Range Comments POC-GLUCOSE METER (BEAKER) 193 mg/dL 70-[address] [facility] [address] [facility] (test rkdk=9919) [place] [address] VANCOMYCIN LEVEL, [id number] 09:00:00 Test Item Value Reference Range Comments VANCOMYCIN RANDOM (BEAKER) (test pqkn=009) 22.6 ug/mL Reference Range: No [id number] 07:29:00 Test Item Value Reference Range Comments MAGNESIUM (BEAKER) (test gmgf=337) 1.9 mg/dL 1.6-2.6 BASIC METABOLIC [id number] 07:29:00 Test Item Value Reference Range Comments SODIUM (BEAKER) (test 141 meq/L 136-145 bzwh=007) POTASSIUM (BEAKER) (test 3.7 meq/L 3.5-5.1 hqpk=309) CHLORIDE (BEAKER) (test 113 meq/L 98-107 inrg=862) CO2 (BEAKER) (test 23 meq/L 22-29 bvul=161) BLOOD UREA NITROGEN 23 mg/dL 7-21 (BEAKER) (test dgpr=138) CREATININE (BEAKER) (test 1.11 mg/dL 0.57-1.25 iwkn=665) GLUCOSE RANDOM (BEAKER) 100 mg/dL 70-105 (test szbn=692) CALCIUM (BEAKER) (test 8.2 mg/dL 8.4-10.2 kiur=242) EGFR (BEAKER) (test 78 mL/min/1.73 sq m ESTIMATED GFR IS NOT mrkz=8070) ACCURATE CREATININE CLEARANCE IN PREDICTING GLOMERULAR FILTRATION RATE. ESTIMATED GFR IS NOT APPLICABLE FOR DIALYSIS PATIENTS. CBC W/PLT COUNT & AUTO [id number] 07:00:00 Test Item Value Reference Range Comments WHITE BLOOD CELL COUNT (BEAKER) (test rrxv=278) 11.9 K/ L 3.5-10.5 RED BLOOD CELL COUNT (BEAKER) (test ylpu=589) 2.36 M/ L 4.63-6.08 HEMOGLOBIN (BEAKER) (test yurg=182) 6.6 GM/DL 13.7-17.5 HEMATOCRIT (BEAKER) (test utjx=742) 21.2 % 40.1-51.0 MEAN CORPUSCULAR VOLUME (BEAKER) (test gjxv=265) 89.8 fL 79.0-92.2 MEAN CORPUSCULAR HEMOGLOBIN (BEAKER) (test 28.0 pg 25.7-32.2 xpgk=276) MEAN CORPUSCULAR HEMOGLOBIN CONC (BEAKER) (test 31.1 GM/DL 32.3-36.5 uafg=834) RED CELL DISTRIBUTION WIDTH (BEAKER) (test 18.6 % 11.6-14.4 jnuv=455) PLATELET COUNT (BEAKER) (test ptyb=216) 210 K/CU MM 150-450 MEAN PLATELET VOLUME (BEAKER) (test lglo=163) 10.7 fL 9.4-12.4 NUCLEATED RED BLOOD CELLS (BEAKER) (test 0 /100 WBC 0-0 rwzr=779) NEUTROPHILS RELATIVE PERCENT (BEAKER) (test 77 % ovvv=728) LYMPHOCYTES RELATIVE PERCENT (BEAKER) (test 10 % flaw=332) MONOCYTES RELATIVE PERCENT (BEAKER) (test 12 % eehh=221) EOSINOPHILS RELATIVE PERCENT (BEAKER) (test 0 % zxob=207) BASOPHILS RELATIVE PERCENT (BEAKER) (test 0 % gexo=762) NEUTROPHILS ABSOLUTE COUNT (BEAKER) (test 9.19 K/ L 1.78-5.38 dvgt=582) LYMPHOCYTES ABSOLUTE COUNT (BEAKER) (test 1.21 K/ L 1.32-3.57 kgzo=773) MONOCYTES ABSOLUTE COUNT (BEAKER) (test 1.38 K/ L 0.30-0.82 wwed=731) EOSINOPHILS ABSOLUTE COUNT (BEAKER) (test 0.03 K/ L 0.04-0.54 uhbs=158) BASOPHILS ABSOLUTE COUNT (BEAKER) (test 0.04 K/ L 0.01-0.08 lavk=625) IMMATURE GRANULOCYTES-RELATIVE PERCENT (BEAKER) 0 % 0-1 (test xvwn=5137) POCT-GLUCOSE [id number] 06:47:00 Test Item Value Reference Range Comments POC-GLUCOSE METER (BEAKER) 128 mg/dL 70-110 TESTED AT [address] (test cwgv=0419) [facility] [address] POCT-GLUCOSE [id number] 01:25:00 Test Item Value Reference Range Comments POC-GLUCOSE METER (BEAKER) 81 mg/dL 70-110 TESTED AT [address] (test poec=6591) [facility] [address] VANCOMYCIN LEVEL, [id number] 21:59:00 Test Item Value Reference Range Comments VANCOMYCIN TROUGH (BEAKER) (test lfbk=488) 26.3 ug/mL 10.0-20.0 WAIT FOR LEVEL TO RETURN BEFORE GIVING DOSE. If vancomycin trough level > 20 , HOLD dose and contact MD and pharmacist.POCT-GLUCOSE [id number] 17:48:00 Test Item Value Reference Range Comments POC-GLUCOSE METER (BEAKER) 96 mg/dL 70-110 TESTED AT [address] (test bxok=8338) [facility] [address] POCT-GLUCOSE [id number] 15:40:00 Test Item Value Reference Range Comments POC-GLUCOSE METER (BEAKER) 106 mg/dL 70-110 TESTED AT [address] (test lpce=8251) [facility] [address] CBC W/PLT COUNT & AUTO [id number] 14:21:00 Test Item Value Reference Range Comments WHITE BLOOD CELL COUNT (BEAKER) (test ishf=568) 12.6 K/ L 3.5-10.5 RED BLOOD CELL COUNT (BEAKER) (test uzpr=271) 2.64 M/ L 4.63-6.08 HEMOGLOBIN (BEAKER) (test bdjj=498) 7.3 GM/DL 13.7-17.5 HEMATOCRIT (BEAKER) (test jxnm=484) 23.8 % 40.1-51.0 MEAN CORPUSCULAR VOLUME (BEAKER) (test mvec=608) 90.2 fL 79.0-92.2 MEAN CORPUSCULAR HEMOGLOBIN (BEAKER) (test 27.7 pg 25.7-32.2 hvnn=651) MEAN CORPUSCULAR HEMOGLOBIN CONC (BEAKER) (test 30.7 GM/DL 32.3-36.5 mfvr=696) RED CELL DISTRIBUTION WIDTH (BEAKER) (test 18.2 % 11.6-14.4 sacv=693) PLATELET COUNT (BEAKER) (test cxrm=727) 225 K/CU MM 150-450 MEAN PLATELET VOLUME (BEAKER) (test fzrm=719) 10.6 fL 9.4-12.4 NUCLEATED RED BLOOD CELLS (BEAKER) (test 0 /100 WBC 0-0 kozx=383) (CELLAVISION MANUAL DIFF)[id number] 14:21:00 Test Item Value Reference Range Comments NEUTROPHILS - REL (CELLAVISION)(BEAKER) (test 89 % xewr=9189) LYMPHOCYTES - REL (CELLAVISION)(BEAKER) (test 5 % wabc=0037) MONOCYTES - REL (CELLAVISION)(BEAKER) (test 5 % djwr=6388) ATYPICAL LYMPHOCYTES - REL (CELLAVISION)(BEAKER) 1 % 0-0 (test kclz=4042) NEUTROPHILS - ABS (CELLAVISION)(BEAKER) (test 11.21 K/ul 1.78-5.38 upse=8097) LYMPHOCYTES - ABS (CELLAVISION)(BEAKER) (test 0.63 K/ul 1.32-3.57 iqcl=6858) MONOCYTES - ABS (CELLAVISION)(BEAKER) (test 0.63 K/uL 0.30-0.82 wexw=3550) ATYPICAL LYMPHOCYTES - ABS (CELLAVISION)(BEAKER) 0.13 K/uL 0.00-0.00 (test eiky=9675) TOTAL COUNTED (BEAKER) (test sydw=2765) 100 PLT MORPHOLOGY (BEAKER) (test toxd=852) Normal SMUDGE CELLS (BEAKER) (test pgtk=4803) Present ANISOCYTOSIS (BEAKER) (test fdhr=204) 1+ few POIKILOCYTES (BEAKER) (test vqnc=232) 2+ moderate CESILIA CELLS (BEAKER) (test zxou=885) 1+ few PLATELET CONCENTRATION (CELLAVISION)(BEAKER) Adequate (test xzlr=1920) Received comment: User comments: Slide comments:POCT-GLUCOSE [id number] 12: 02:00 Test Item Value Reference Range Comments POC-GLUCOSE METER (BEAKER) 84 mg/dL 70-[address] [facility] [address] [facility] (test nwro=2955) [facility] [address] [id number] 07:12:00 Test Item Value Reference Range Comments MAGNESIUM (BEAKER) (test eoms=663) 1.6 mg/dL 1.6-2.6 BASIC METABOLIC [id number] 07:12:00 Test Item Value Reference Range Comments SODIUM (BEAKER) (test 140 meq/L 136-145 lgun=399) POTASSIUM (BEAKER) (test 3.7 meq/L 3.5-5.1 exom=994) CHLORIDE (BEAKER) (test 110 meq/L 98-107 ehqt=917) CO2 (BEAKER) (test 25 meq/L 22-29 vufk=345) BLOOD UREA NITROGEN 27 mg/dL 7-21 (BEAKER) (test gokx=738) CREATININE (BEAKER) (test 1.07 mg/dL 0.57-1.25 mjda=163) GLUCOSE RANDOM (BEAKER) 67 mg/dL 70-105 (test buml=630) CALCIUM (BEAKER) (test 8.5 mg/dL 8.4-10.2 adxo=766) EGFR (BEAKER) (test 81 mL/min/1.73 sq m ESTIMATED GFR IS NOT zepf=1429) ACCURATE CREATININE CLEARANCE IN PREDICTING GLOMERULAR FILTRATION RATE. ESTIMATED GFR IS NOT APPLICABLE FOR DIALYSIS PATIENTS. POCT-GLUCOSE [id number] 06:24:00 Test Item Value Reference Range Comments POC-GLUCOSE METER (BEAKER) 71 mg/dL 70-110 TESTED AT [address] (test pfgg=4863) [place] [address] POCT-GLUCOSE [id number] 00:20:00 Test Item Value Reference Range Comments POC-GLUCOSE METER (BEAKER) 106 mg/dL 70-110 TESTED AT [address] (test ekwl=0178) [place] [address] POCT-GLUCOSE [id number] 18:43:00 Test Item Value Reference Range Comments POC-GLUCOSE METER (BEAKER) 104 mg/dL 70-110 TESTED AT [address] (test gyvc=4433) [place] [address] POCT-GLUCOSE [id number] 12:56:00 Test Item Value Reference Range Comments POC-GLUCOSE METER (BEAKER) 113 mg/dL 70-110 TESTED AT [address] (test ecsc=8216) [place] [address] CBC W/PLT COUNT & AUTO [id number] 11:01:00 Test Item Value Reference Range Comments WHITE BLOOD CELL COUNT (BEAKER) (test nvdt=623) 12.9 K/ L 3.5-10.5 RED BLOOD CELL COUNT (BEAKER) (test bxkj=604) 2.66 M/ L 4.63-6.08 HEMOGLOBIN (BEAKER) (test zoaz=262) 7.5 GM/DL 13.7-17.5 HEMATOCRIT (BEAKER) (test flqv=308) 24.1 % 40.1-51.0 MEAN CORPUSCULAR VOLUME (BEAKER) (test lawm=500) 90.6 fL 79.0-92.2 MEAN CORPUSCULAR HEMOGLOBIN (BEAKER) (test 28.2 pg 25.7-32.2 oipp=390) MEAN CORPUSCULAR HEMOGLOBIN CONC (BEAKER) (test 31.1 GM/DL 32.3-36.5 lbut=513) RED CELL DISTRIBUTION WIDTH (BEAKER) (test 18.4 % 11.6-14.4 vrdj=296) PLATELET COUNT (BEAKER) (test wrxt=359) 208 K/CU MM 150-450 MEAN PLATELET VOLUME (BEAKER) (test bbgy=828) 10.8 fL 9.4-12.4 NUCLEATED RED BLOOD CELLS (BEAKER) (test 0 /100 WBC 0-0 lava=043) (CELLAVISION MANUAL DIFF)2018-07-12 11:01:00 Test Item Value Reference Range Comments NEUTROPHILS - REL (CELLAVISION)(BEAKER) (test 86 % vbii=1219) LYMPHOCYTES - REL (CELLAVISION)(BEAKER) (test 1 % inrs=9919) MONOCYTES - REL (CELLAVISION)(BEAKER) (test 9 % bocm=7525) BANDS - REL (CELLAVISION)(BEAKER) (test 3 % 0-10 dbud=1343) ATYPICAL LYMPHOCYTES - REL (CELLAVISION)(BEAKER) 1 % 0-0 (test nyvd=9325) NEUTROPHILS - ABS (CELLAVISION)(BEAKER) (test 11.09 K/ul 1.78-5.38 ahbp=5265) LYMPHOCYTES - ABS (CELLAVISION)(BEAKER) (test 0.13 K/ul 1.32-3.57 tmzu=3118) MONOCYTES - ABS (CELLAVISION)(BEAKER) (test 1.16 K/uL 0.30-0.82 nwfx=4372) BANDS - ABS (CELLAVISION)(BEAKER) (test 0.39 K/uL 0.00-0.80 rpyv=3187) ATYPICAL LYMPHOCYTES - ABS (CELLAVISION)(BEAKER) 0.13 K/uL 0.00-0.00 (test lpca=3288) TOTAL COUNTED (BEAKER) (test omle=8113) 100 WBC MORPHOLOGY (BEAKER) (test qnvo=428) Normal PLT MORPHOLOGY (BEAKER) (test loay=744) Normal POLYCHROMATOPHILLIC RBCS(BEAKER) (test qevs=929) 1+ few HYPOCHROMIA (BEAKER) (test fzfq=745) 1+ few ARTIFACT (CELLAVISION)(BEAKER) (test suzt=3783) Present PLATELET CONCENTRATION (CELLAVISION)(BEAKER) Adequate (test pvuk=3478) Received comment: User comments: Slide comments:POCT-GLUCOSE [id number] 07: 57:00 Test Item Value Reference Range Comments POC-GLUCOSE METER (BEAKER) 96 mg/dL 70-[address] [facility] [address] [facility] (test yyjp=2014) [facility] [address] [id number] 07:34:00 Test Item Value Reference Range Comments MAGNESIUM (BEAKER) (test zuud=652) 1.8 mg/dL 1.6-2.6 BASIC METABOLIC [id number] 07:34:00 Test Item Value Reference Range Comments SODIUM (BEAKER) (test 138 meq/L 136-145 ksom=100) POTASSIUM (BEAKER) (test 4.0 meq/L 3.5-5.1 oywy=162) CHLORIDE (BEAKER) (test 108 meq/L 98-107 ugkj=706) CO2 (BEAKER) (test 26 meq/L 22-29 mzfq=106) BLOOD UREA NITROGEN 33 mg/dL 7-21 (BEAKER) (test iwnf=743) CREATININE (BEAKER) (test 1.10 mg/dL 0.57-1.25 ekmh=763) GLUCOSE RANDOM (BEAKER) 79 mg/dL 70-105 (test swte=441) CALCIUM (BEAKER) (test 8.4 mg/dL 8.4-10.2 fqwt=927) EGFR (BEAKER) (test 79 mL/min/1.73 sq m ESTIMATED GFR IS NOT bldz=0159) ACCURATE CREATININE CLEARANCE IN PREDICTING GLOMERULAR FILTRATION RATE. ESTIMATED GFR IS NOT APPLICABLE FOR DIALYSIS PATIENTS.
--- NOTE | 2018-11-04 16:52 | ER ---
Nurse's Notes [facility] Name: Leonardo Kumari Age: 78 yrs Sex: Male : 1940 Arrival Date: 11/04/2018 Time: 15:53 Bed 25 Private MD: Diagnosis: Abdominal tenderness;Gastritis, unspecified;Aphasia;Dementia in other diseases classified elsewhere;Gastrostomy malfunction;Gastrostomy complications;Anemia, unspecified;Unspecified kidney failure Presentation: 11/04 15:59 Presenting complaint: EMS states: nurse at assisted while feeding pt through PEG ca1 tube noticed "blood-tinged fluid in the tube and blood-tinged discharge around the PEG tube insertion site. Pt also complains of abdominal pain. Pt is Ox2 baseline. Transition of care: patient was received from another setting of care (long-term care facility), [facility]. Onset of symptoms was November 04, 2018. Risk Assessment: Do you want to hurt yourself or someone else? Patient reports no desire to harm self or others. Initial Sepsis Screen: Does the patient meet any 2 criteria? No. Patient's initial sepsis screen is negative. Does the patient have a suspected source of infection? No. Patient's initial sepsis screen is negative. Care prior to arrival: Glucose check: 169. 15:59 Method Of Arrival: EMS: [facility] ca1 15:59 Acuity: [place] 3 ca1 Triage Assessment: 15:59 General: Appears in no apparent distress. uncomfortable, ill, Behavior is calm. Pain: ca1 Complains of pain in abdomen Pain Unable to use pain scale. Patient appears to be moaning. Historical: - Allergies: 16:20 Stadol; ca1 16:20 Versed; ca1 - Home Meds: 16:20 acetaminophen 650 mg Rectal supp 1 suppository every 4 hours PRN [Active]; amlodipine 5 ca1 mg tab 1 tab once daily [Active]; ascorbic acid oral [Active]; Aspir-81 81 mg Oral TbEC 1 tab once daily [Active]; atorvastatin 80 mg Oral tab 1 tab once daily [Active]; carvedilol 25 mg Oral tab 1 tab nightly [Active]; hydralazine 25 mg Oral tab 1 tab every 8 hours [Active]; Levemir 100 unit/mL subcutaneous soln 10 units daily [Active]; Novolog 100 unit/mL Sub-Q soln [Active]; Zinc Oxide Topical [Active]; tramadol 50 mg Oral tab 1 tab every 6 hours [Active]; paroxetine HCl 10 mg Oral tab 1 tab once daily [Active]; Pepcid 20 mg Oral tab 1 tab once daily [Active]; Bactrim DS 800-160 mg Oral tab 1 tab every 12 hours [Active]; clopidogrel 75 mg oral tab 1 tab once daily [Active]; cyclobenzaprine 10 mg Oral tab 1 tab 3 times per day [Active]; Colace 50mg/10ml Oral cap 10 mL once daily [Active]; - PMHx: 16:20 Allergic rhinitis; Aphasia; Dementia; Depression; Diabetes - NIDDM; DYSPHAGIA; GERD; GI ca1 Bleed; High Cholesterol; Hypertension; MRSA; Paraplegia; UTI; - Immunization history:: Adult Immunizations up to date. - Social history:: Smoking status: Patient/guardian denies using tobacco. - Ebola Screening: : No symptoms or risks identified at this time. Screenin:59 Abuse screen: Denies threats or abuse. Denies injuries from another. Nutritional ca1 screening: No deficits noted. Tuberculosis screening: No symptoms or risk factors identified. Fall Risk Ambulatory Aid- None/Bed Rest/Nurse Assist (0 pts). Assessment: 16:00 General: Appears in no apparent distress. uncomfortable, ill, Behavior is calm, ca1 cooperative. Pain: Complains of pain in abdomen Unable to use pain scale. Patient appears to be moaning. Neuro: Level of Consciousness is awake, Oriented to person. Cardiovascular: Heart tones S1 S2 present Capillary refill < 3 seconds Patient's skin is warm and dry. Respiratory: Airway is patent Respiratory effort is even, unlabored, Respiratory pattern is regular, symmetrical, Breath sounds are clear bilaterally. GI: Abdomen is round non-distended, PEG tube in place, clamped. Site reddened. Site with drainage. Bowel sounds present X 4 quads. Abd is soft and non tender X 4 quads. : No deficits noted. No signs and/or symptoms were reported regarding the genitourinary system. EENT: No deficits noted. No signs and/or symptoms were reported regarding the EENT system. Derm: Skin is intact, Skin is pink, warm \\T\\ dry. normal. Musculoskeletal: Circulation, motion, and sensation intact. Capillary refill < 3 seconds. 17:00 Reassessment: Patient appears in no apparent distress at this time. Patient and/or ca1 family updated on plan of care and expected duration. Pain level reassessed. Patient is alert, oriented x 3, equal unlabored respirations, skin warm/dry/pink. 18:16 Reassessment: Patient appears in no apparent distress at this time. Patient is alert, ca1 oriented x 3, equal unlabored respirations, skin warm/dry/pink. 19:33 Reassessment: Patient appears in no apparent distress at this time. Patient and/or ca1 family updated on plan of care and expected duration. Pain level reassessed. Patient is alert, oriented x 3, equal unlabored respirations, skin warm/dry/pink. Vital Signs: 15:59 BP 96 / 75; Pulse 94; Resp 20 S; Temp 98.2(O); Pulse Ox 100% on R/A; ca1 17:00 BP 144 / 70; Pulse 90; Resp 18 S; Pulse Ox 100% on R/A; ca1 18:15 BP 147 / 77; Pulse 94; Resp 17 S; Pulse Ox 98% on R/A; ca1 19:33 BP 157 / 74; Pulse 95; Resp 19 S; Pulse Ox 100% on R/A; ca1 ED Course: 15:53 Patient arrived in ED. ss 15:58 Surinder Salcedo MD is Attending Physician. madisyn 15:59 Elda Owens, VIVINE is Primary Nurse. ca1 15:59 Arm band placed on right wrist. ca1 16:00 Warm blanket given. Pillow given. power brake rebuilder on. Pulse ox on. NIBP on. jp3 16:00 Call light in reach. Side rails up X 1. Side rails up X2. jp3 16:10 Triage completed. ca1 16:50 Juaquin Deluna MD is Hospitalizing Provider. madisyn 17:00 Missed attempt(s): 20 gauge in left forearm. ca1 17:10 Inserted saline lock: 20 gauge in right forearm, using aseptic technique. Blood ca1 collected. 17:30 Straight cath inserted, using sterile technique, 16 Fr. Specimen obtained. Returned ca1 elizabeth urine. Patient tolerated well. by Serafin Bingham, intelligence agent. 18:04 XRAY Chest (1 view) In Process Unspecified. EDMS 18:43 Radiology exam delayed due to PT BEING CATHED AT THIS TIME, CALI TO CALL WHEN PT IS mw3 READY. 18:45 Ledesma cath inserted, using sterile technique, 18 Fr., by va, balloon inflated, to jp3 gravity drainage, returned elizabeth urine. Patient tolerated well. 19:58 No provider procedures requiring assistance completed. Patient admitted, IV remains in ca1 place. Administered Medications: 17:13 Drug: NS 0.9% 1000 ml Route: IV; Rate: 125 ml/hr; Site: right forearm; ca1 20:40 Follow up: IV Status: Infusion continued upon admission ca1 17:13 Drug: ProTONIX 40 mg Route: IVP; Site: right forearm; ca1 18:30 Follow up: Response: No adverse reaction ca1 18:36 Drug: NS 0.9% 500 ml Route: IV; Rate: bolus; Site: right forearm; ca1 19:20 Drug: Rocephin - (cefTRIAXone) 1 grams Route: IVPB; Infused Over: 30 mins; Site: right ca1 forearm; 20:30 Follow up: Response: No adverse reaction; IV Status: slow IVP per pharmacy protocol ca1 19:25 Drug: Flagyl 500 mg Volume: 100 ml; Route: IVPB; Rate: 200 ml/hr; Infused Over: 30 ca1 mins; Site: right forearm; 20:00 Follow up: IV Status: Completed infusion ca1 Output: 17:30 Urine: 400ml (Straight Cath); Total: 400ml. ca1 Outcome: 16:51 Decision to Hospitalize by Provider. [facility] 19:58 Admitted to Med/surg accompanied by tech, via stretcher, room 214, with chart, Report ca1 called to Kimberlyn Hammond RN 19:58 Condition: stable 19:58 Instructed on the need for admit. 20:44 Patient left the ED. ca1 Signatures: Dispatcher [employer] EDWV Surinder Salcedo MD MD cha Smirch, Shelby RN RN Emily Howell mw3 Serafin Bingham jp3 Elda Owens RN RN ca1 Corrections: (The following items were deleted from the chart) 17:57 17:10 Inserted saline lock: 20 gauge in right forearm, using aseptic technique. Blood ca1 collected. Missed attempt(s): 20 gauge in left forearm. ca1 19:58 18:50 Abuse screen: Denies threats or abuse. Denies injuries from another. ca1 ca1 19:58 18:50 Nutritional screening: No deficits noted. ca1 ca1 19:58 18:50 Tuberculosis screening: No symptoms or risk factors identified. ca1 ca1 18:50 Fall Risk Ambulatory Aid- None/Bed Rest/Nurse Assist (0 pts). ca1 ca1 11/05 00:10 00:10 IV Status: Infusion continued upon admission ca1 ca1
--- NOTE | 2018-11-04 16:52 | EDPHYS ---
Physician Documentation [facility] Name: Leonardo Kumari Age: 78 yrs Sex: Male : 1940 Arrival Date: 11/04/2018 Time: 15:53 Bed 25 Private MD: ED Physician Surinder Salcedo HPI: 11/04 16:34 This 78 yrs old Black Male presents to ER via EMS with complaints of peg leaking, blood madisyn tinged, coffee material. 16:34 The patient presents with abdominal pain in the upper abdomen. Onset: The madisyn symptoms/episode began/occurred 3 day(s) ago. The symptoms do not radiate. Associated signs and symptoms: none. Historical: - Allergies: 16:20 Stadol; ca1 16:20 Versed; ca1 - Home Meds: 16:20 acetaminophen 650 mg Rectal supp 1 suppository every 4 hours PRN [Active]; amlodipine 5 ca1 mg tab 1 tab once daily [Active]; ascorbic acid oral [Active]; Aspir-81 81 mg Oral TbEC 1 tab once daily [Active]; atorvastatin 80 mg Oral tab 1 tab once daily [Active]; carvedilol 25 mg Oral tab 1 tab nightly [Active]; hydralazine 25 mg Oral tab 1 tab every 8 hours [Active]; Levemir 100 unit/mL subcutaneous soln 10 units daily [Active]; Novolog 100 unit/mL Sub-Q soln [Active]; Zinc Oxide Topical [Active]; tramadol 50 mg Oral tab 1 tab every 6 hours [Active]; paroxetine HCl 10 mg Oral tab 1 tab once daily [Active]; Pepcid 20 mg Oral tab 1 tab once daily [Active]; Bactrim DS 800-160 mg Oral tab 1 tab every 12 hours [Active]; clopidogrel 75 mg oral tab 1 tab once daily [Active]; cyclobenzaprine 10 mg Oral tab 1 tab 3 times per day [Active]; Colace 50mg/10ml Oral cap 10 mL once daily [Active]; - PMHx: 16:20 Allergic rhinitis; Aphasia; Dementia; Depression; Diabetes - NIDDM; DYSPHAGIA; GERD; GI ca1 Bleed; High Cholesterol; Hypertension; MRSA; Paraplegia; UTI; - Immunization history:: Adult Immunizations up to date. - Social history:: Smoking status: Patient/guardian denies using tobacco. - Ebola Screening: : No symptoms or risks identified at this time. ROS: 16:35 Constitutional: Negative for fever, chills, and weight loss, Eyes: Negative for injury, madisyn pain, redness, and discharge, ENT: Negative for injury, pain, and discharge, Neck: Negative for injury, pain, and swelling, Cardiovascular: Negative for chest pain, palpitations, and edema, Respiratory: Negative for shortness of breath, cough, wheezing, and pleuritic chest pain, Back: Negative for injury and pain, : Negative for injury, bleeding, discharge, and swelling, Skin: Negative for injury, rash, and discoloration, Psych: Negative for depression, anxiety, suicide ideation, homicidal ideation, and hallucinations, Allergy/Immunology: Negative for hives, rash, and allergies, Endocrine: Negative for neck swelling, polydipsia, polyuria, polyphagia, and marked weight changes, Hematologic/Lymphatic: Negative for swollen nodes, abnormal bleeding, and unusual bruising. 16:35 Abdomen/GI: Positive for abdominal pain, of the right upper quadrant, bleeding around peg, black drainage from peg. Exam: 16:35 Constitutional: This is a well developed, well nourished patient who is awake, alert, madisyn and in no acute distress. Head/Face: Normocephalic, atraumatic. Eyes: Pupils equal round and reactive to light, extra-ocular motions intact. Lids and lashes normal. Conjunctiva and sclera are non-icteric and not injected. Cornea within normal limits. Periorbital areas with no swelling, redness, or edema. ENT: Nares patent. No nasal discharge, no septal abnormalities noted. Tympanic membranes are normal and external auditory canals are clear. Oropharynx with no redness, swelling, or masses, exudates, or evidence of obstruction, uvula midline. Mucous membranes moist. Neck: Trachea midline, no thyromegaly or masses palpated, and no cervical lymphadenopathy. Supple, full range of motion without nuchal rigidity, or vertebral point tenderness. No Meningismus. Chest/axilla: Normal chest wall appearance and motion. Nontender with no deformity. No lesions are appreciated. Cardiovascular: Regular rate and rhythm with a normal S1 and S2. No gallops, murmurs, or rubs. Normal PMI, no JVD. No pulse deficits. Respiratory: Lungs have equal breath sounds bilaterally, clear to auscultation and percussion. No rales, rhonchi or wheezes noted. No increased work of breathing, no retractions or nasal flaring. Back: No spinal tenderness. No costovertebral tenderness. Full range of motion. 16:35 Abdomen/GI: Inspection: abdomen appears normal, Bowel sounds: normal, Palpation: mild abdominal tenderness, in all quadrants, Liver: no appreciated palpable abnormalities, Hernia: not appreciated. Vital Signs: 15:59 BP 96 / 75; Pulse 94; Resp 20 S; Temp 98.2(O); Pulse Ox 100% on R/A; ca1 17:00 BP 144 / 70; Pulse 90; Resp 18 S; Pulse Ox 100% on R/A; ca1 18:15 BP 147 / 77; Pulse 94; Resp 17 S; Pulse Ox 98% on R/A; ca1 19:33 BP 157 / 74; Pulse 95; Resp 19 S; Pulse Ox 100% on R/A; ca1 MDM: 15:58 Patient medically screened. [facility] 16:38 Data reviewed: vital signs, nurses notes, lab test result(s), EKG, radiologic studies, [facility] CT scan, plain films. 11/04 15:59 Order name: Basic Metabolic Panel; Complete Time: 18:22 [facility] 11/04 15:59 Order name: CBC with Diff; Complete Time: 17:14 [facility] 11/04 15:59 Order name: LFT's; Complete Time: 18:22 [facility] 11/04 15:59 Order name: Magnesium; Complete Time: 18:22 [facility] 11/04 15:59 Order name: NT PRO-BNP; Complete Time: 18:22 [facility] 11/04 15:59 Order name: PT-INR; Complete Time: 17:14 [facility] 11/04 15:59 Order name: Troponin (emerg Dept Use Only); Complete Time: 18:22 [facility] 11/04 15:59 Order name: XRAY Chest (1 view); Complete Time: 18:46 [facility] 11/04 15:59 Order name: Lipase; Complete Time: 18:22 [facility] 11/04 15:59 Order name: Type And Screen; Complete Time: 18:22 [facility] 11/04 15:59 Order name: Urine Culture [facility] 11/04 16:33 Order name: CT Abd/Pelvis - Without Cont: peg contrast only [facility] 11/04 18:00 Order name: Urine Dipstick--Ancillary (enter results); Complete Time: 18:22 11/04 19:30 Order name: CT EDMS 11/04 15:59 Order name: EKG; Complete Time: 16:00 [facility] 11/04 15:59 Order name: Cardiac monitoring; Complete Time: 17:23 [facility] 11/04 15:59 Order name: EKG - Nurse/Tech; Complete Time: 17:23 [facility] 11/04 15:59 Order name: IV Saline Lock; Complete Time: 17:11 [facility] 11/04 15:59 Order name: Labs collected and sent; Complete Time: 17:11 [facility] 11/04 15:59 Order name: O2 Per Protocol; Complete Time: 17:11 [facility] 11/04 15:59 Order name: O2 Sat Monitoring; Complete Time: 17:11 [facility] 11/04 15:59 Order name: Urine Dipstick-Ancillary (obtain specimen); Complete Time: 17:56 [facility] 11/04 16:33 Order name: NG Tube: peg to low int suction, before contrast, and after ct; Complete madisyn Time: 17:11/04 18:24 Order name: Ledesma; Complete Time: 18:31 [facility] Administered Medications: 17:13 Drug: NS 0.9% 1000 ml Route: IV; Rate: 125 ml/hr; Site: right forearm; ca1 20:40 Follow up: IV Status: Infusion continued upon admission ca1 17:13 Drug: ProTONIX 40 mg Route: IVP; Site: right forearm; ca1 18:30 Follow up: Response: No adverse reaction ca1 18:36 Drug: NS 0.9% 500 ml Route: IV; Rate: bolus; Site: right forearm; ca1 19:20 Drug: Rocephin - (cefTRIAXone) 1 grams Route: IVPB; Infused Over: 30 mins; Site: right ca1 forearm; 20:30 Follow up: Response: No adverse reaction; IV Status: slow IVP per pharmacy protocol ca1 19:25 Drug: Flagyl 500 mg Volume: 100 ml; Route: IVPB; Rate: 200 ml/hr; Infused Over: 30 ca1 mins; Site: right forearm; 20:00 Follow up: IV Status: Completed infusion ca1 Disposition: 11/04/18 16:51 Hospitalization ordered by Juaquin Deluna for Inpatient Admission. Preliminary diagnosis are Abdominal tenderness, Gastritis, unspecified, Aphasia, Dementia in other diseases classified elsewhere, Gastrostomy malfunction, Gastrostomy complications, Anemia, unspecified, Unspecified kidney failure. - Bed requested for Telemetry/MedSurg (Inpatient). - Status is Inpatient Admission. ca1 - Condition is Fair. - Problem is new. - Symptoms are unchanged. UTI on Admission? No Signatures: Dispatcher [employer] EDMS Denise Hirsch RN RN dw Anderson, Corey, MD MD cha Acob, Cheryl, RN RN ca1 Corrections: (The following items were deleted from the chart) 17:47 16:51 Hospitalization Ordered by Juaquin Deluna MD for Inpatient Admission. Preliminary [facility] diagnosis is Abdominal tenderness; Gastritis, unspecified; Aphasia; Dementia in other diseases classified elsewhere; Gastrostomy malfunction; Gastrostomy complications. Bed requested for Telemetry/MedSurg (Inpatient). Status is Inpatient Admission. Condition is Fair. Problem is new. Symptoms are unchanged. UTI on Admission? No. madisyn 18:22 17:47 11/04/2018 16:51 Hospitalization Ordered by Juaquin Deluna MD for Inpatient madisyn Admission. Preliminary diagnosis is Abdominal tenderness; Gastritis, unspecified; Aphasia; Dementia in other diseases classified elsewhere; Gastrostomy malfunction; Gastrostomy complications; Anemia, unspecified. Bed requested for Telemetry/MedSurg (Inpatient). Status is Inpatient Admission. Condition is Fair. Problem is new. Symptoms are unchanged. UTI on Admission? No. madisyn 18:40 18:22 11/04/2018 16:51 Hospitalization Ordered by Juaquin Deluna MD for Inpatient dw Admission. Preliminary diagnosis is Abdominal tenderness; Gastritis, unspecified; Aphasia; Dementia in other diseases classified elsewhere; Gastrostomy malfunction; Gastrostomy complications; Anemia, unspecified; Unspecified kidney failure. Bed requested for Telemetry/MedSurg (Inpatient). Status is Inpatient Admission. Condition is Fair. Problem is new. Symptoms are unchanged. UTI on Admission? No. madisyn 20:44 18:40 11/04/2018 16:51 Hospitalization Ordered by Juaquin Deluna MD for Inpatient ca1 Admission. Preliminary diagnosis is Abdominal tenderness; Gastritis, unspecified; Aphasia; Dementia in other diseases classified elsewhere; Gastrostomy malfunction; Gastrostomy complications; Anemia, unspecified; Unspecified kidney failure. Bed requested for Telemetry/MedSurg (Inpatient). Status is Inpatient Admission. Condition is Fair. Problem is new. Symptoms are unchanged. UTI on Admission? No. dw
[2018-11-04 17:09] LABS: Absolute Lymphocytes (CBC) 0.9 K/uL (0.7-4.9); Absolute Monocytes 1.5 K/uL (0.1-1.3); Basophils % 0.4 % (0-1.3); Eosinophils % 0.6 % (0-4.4); Hematocrit 30.4 % (39.6-49.0); Lymphocytes % 7.5 % (15.3-44.8); MPV 8.7 fL (7.6-11.3); Monocytes % 11.9 % (3.3-12.3); RBC Red Blood Cell Count 3.32 M/uL (4.33-5.43)
[2018-11-04 17:27] LABS: ALT/SGPT 55 U/L (12-78); AST/SGOT 53 U/L (15-37); Albumin 1.6 g/dL (3.4-5.0); Alkaline Phosphatase 206 U/L (45-117); BUN Blood Urea Nitrogen 64 mg/dL (7-18); Bicarbonate 30 mmol/L (21-32); Bilirubin Direct < 0.1 mg/dL (0-0.2); Bilirubin Total 0.1 mg/dL (0.2-1.0); Glucose Level 136 mg/dL (74-106); Lipase 155 U/L (73-393); Magnesium 2.5 mg/dL (1.8-2.4); NT PRO-BNP 293 pg/mL (<450); Protein, Total 6.6 g/dL (6.4-8.2); Sodium Level 142 mmol/L (136-145); Troponin (Emerg Dept Use Only) < 0.02 ng/mL (0.0-0.045)
[2018-11-04] MEDS ORDERED: NA CHLORIDE 0.9% 1,000 ML ONE (17:27)
[2018-11-04] MEDS ORDERED: PANTOPRAZOLE 40 MG INJ ONE (17:27)
[2018-11-04 17:49] LABS: Potassium 5.1 mmol/L (3.5-5.1)
[2018-11-04 18:09] LABS: Urine Blood NEGATIVE (NEG); Urine Glucose NEGATIVE (NEG); Urine Protein 3+ (NEG); Urine Specific Gravity 1.015 (1.005-1.030); Urine pH 6.5 (5.0-7.0)
--- NOTE | 2018-11-04 18:32 | RAD REPORT ---
EXAM DESCRIPTION: RAD - Chest Single View - 11/04/2018 6:04 pm CLINICAL HISTORY: Abdominal pain, abdominal distention COMPARISON: June 2018 TECHNIQUE: AP portable chest image was obtained 1751 hours . FINDINGS: Lung volumes are relatively low. Interstitial markings are prominent but not clearly diffe rent from the comparison. No peripheral mass or consolidation. Heart and vasculature are normal. No m easurable pleural effusion and no pneumothorax. No acute bony abnormality seen. No acute aortic findi ngs suspected. No free air under the diaphragm. IMPRESSION: No acute cardiopulmonary process. Chest findings are not substantially different from comparison.
[2018-11-04] MEDS ORDERED: NA CHLORIDE 0.9% 500 ML ONE (18:46)
--- NOTE | 2018-11-04 19:05 | P.HP ---
Certification for Inpatient Patient admitted to: Inpatient Practitioner: I am a practitioner with admitting privileges, knowledge of patient current condition, hospital course, and medical plan of care. Services: Services provided to patient in accordance with Admission requirements found in Title 42 Section 412.3 of the Code of Federal Regulations Patient History Date of Service: 11/04/18 Reason for admission: PEG tube malfunction, gastritis, coffee-ground leakage History of Present Illness: This is a 78-year-old alf Patient with severe debility, diabetes, hypertension, history of CVA with residual deficit admitted for PEG tube and gastrostomy malfunction. Patient is unable to provide any history due to dementia. No family at bedside. In the ER, patient was hemodynamically stable with blood pressure 96/75, heart rate of 94, respirations of 20, afebrile in 100% on room air. His labs were remarkable for WBC count was 4.5 and a creatinine of 2.36. His chest x-ray was still pending. He received IV Protonix. CT ab/P, unremarkable. At the time of my exam, he was demented, hemodynamically stable. Allergies butorphanol tartrate [From Stadol] Allergy (Verified 01/29/17 18:26) Unknown midazolam HCl [From Versed] Allergy (Verified 01/29/17 18:26) Unknown Home medications list reviewed: Yes Home Medications: Amlodipine [Norvasc*] 5 mg PEG DAILY 07/06/14 Aspirin [Low Dose Aspirin EC] 81 mg PEG DAILY 07/06/14 Atorvastatin Calcium [Lipitor] 80 mg PEG BEDTIME 07/06/14 Carvedilol [Coreg*] 25 mg PEG BEDTIME 07/06/14 Clopidogrel Bisulfate [Plavix*] 75 mg PEG DAILY 07/06/14 Hydralazine HCl [Apresoline] 25 mg PEG Q8H 07/06/14 traMADol HCL [Ultram*] 50 mg PEG Q6H PRN 05/10/15 Acetaminophen 650 mg RTH Q4HP PRN 01/10/17 Albuterol Sulfate [Albuterol Sulfate 0.083% Neb Soln] 1 puff IH Q4HR PRN Cetirizine HCl [Zyrtec] 10 mg PO DAILYPRN PRN 01/10/17 Cyclobenzaprine HCl [Flexeril] 10 mg PO Q12HP 01/10/17 Nystatin 100,000 unit TOP BIDP PRN 01/10/17 Paroxetine HCl [Paxil] 20 mg FT DAILY 01/10/17 Benzocaine/Menthol [Chloraseptic Sore Throat Lozng] 2 spray PO Q4HP PRN Clonidine Patch [Catapres-Tts 2*] 0.2 mg TOP Q7D 01/29/17 Guaifenesin [Robafen] 5 ml FT Q6HP PRN 01/29/17 Mag Hydroxide 8% [Milk Of Magnesia*] 30 ml FT DAILYPRN PRN 01/29/17 Multivitamin Oral Liq [Theravite Liq*] 5 ml FT DAILY 01/29/17 Oxymetazoline HCl [Nasal Sallis] 2 spray ZAK Q12HP 01/29/17 Glucerna 1.5 Jose 237 ml FT QID bot 02/02/17 Pantoprazole [Protonix Tab*] 40 mg PO DAILY #30 tab 02/02/17 - Past Medical/Surgical History Diabetic: Yes -: Diabetes mellitus type 2 -: CVA with Right sided weakness Apr 2014 -: HTN -: Chronic renal disease -: Contracture to the right lower extremity -: History of UTIs, sepsis -: PEG tube in place due to malnutrition -: Depression -: GERD -: LIPIDS -: PEG tube placement Psychosocial/ Personal History: Sister has power of united [place] attorney. He currently lives at a alf. - Social History Alcohol use: No CD- Drugs: No Caffeine use: No Review of Systems is unable to be obtained Physical Examination - Physical Exam General: Cachectic, Demented, Other (Ill-appearing) Respiratory: Clear to auscultation bilaterally, Normal air movement Cardiovascular: No edema, Regular rate/rhythm, Normal S1 S2 Gastrointestinal: Other (PEG tube in place, no active drainage noted; Redness around site of PEG tube; ) Musculoskeletal: Contractures (Generalized - lower extremity, upper extremities. ) Neurological: Dementia - Studies Laboratory Data (last 24 hrs) 11/04/18 16:50: PT 11.8, INR 1.00 11/04/18 16:50: WBC 12.5 H, Hgb 9.8 L, Hct 30.4 L, Plt Count 270 11/04/18 16:50: Sodium 142, Potassium 5.1, BUN 64 H, Creatinine 2.26 H, Glucose 136 H, Magnesium 2.5 H, Total Bilirubin 0.1 L, AST 53 H, ALT 55, Alkaline Phosphatase 206 H, Lipase 155 Assessment and Plan - Problems (Diagnosis) (1) Functional quadriplegia Current Visit: No Status: Acute (2) Malfunction of percutaneous endoscopic gastrostomy (PEG) tube Onset Date: 01/30/17 Current Visit: No Status: Acute (3) Diabetes mellitus Onset Date: 01/11/17 Current Visit: No Status: Chronic (4) GERD (gastroesophageal reflux disease) Onset Date: 01/11/17 Current Visit: No Status: Chronic Qualifiers: (5) History of CVA with residual deficit Onset Date: 01/11/17 Current Visit: No Status: Chronic (6) Hypertension Onset Date: 01/11/17 Current Visit: No Status: Chronic Qualifiers: (7) Renal insufficiency Onset Date: 01/11/17 Current Visit: No Status: Chronic (8) Vascular dementia Onset Date: 10/15/14 Current Visit: No Status: Chronic - Plan Admit To floor with tele. Keep NPO GI consult IV protonix Monitor H&H Will restart home medications as tolerated. DVT prophylaxis: Hold GI prophylaxis: Protonix as above Diet: Keep NPO Disposition: Pending GI workup - Advance Directives Does patient have a Living Will: No Does patient have a Durable POA for Healthcare: No
--- NOTE | 2018-11-04 19:29 | RAD REPORT ---
EXAM DESCRIPTION: CT - Abdomen Pelvis Wo Contrast - 11/04/2018 7:13 pm CLINICAL HISTORY: Abdominal pain, GI bleed COMPARISON: July 2018 CT imaging TECHNIQUE: Axial [address] imaging of the abdomen and pelvis was performed without IV contrast. No IV contrast was given because of allergy, abnormal renal function, patient refusal or physician re quest. Oral contrast was administered at the patient's nursing facility prior to the examination. All CT scans are performed using dose optimization technique as appropriate and may include automated exposure control or mA/KV adjustment according to patient size. FINDINGS: No suspicious findings in the lung bases. Scarring and atelectasis changes are present. No pericardial effusion. The liver, spleen and pancreas show no suspicious findings on non-contrast imaging. Gallbladder and b iliary tree are also without suspicious finding. No hydronephrosis or suspicious renal mass. No significant adrenal finding. Isodense renal masses an d pyelonephritis cannot be excluded in the absence of IV contrast. Urinary bladder is contracted arou nd a Ledesma catheter. No gastric dilatation or gastric wall thickening seen. Solorzano are accentuated by the lack of intralumi nal content. PEG tube is in place. No suspicious findings in the stomach or along the course of the t ubing. Oral contrast has reached the distal small bowel. Patient has a large amount of stool dilating the rectum. There is a moderate stool volume filling but not dilating the remainder of the colon. No free air, free fluid or inflammatory stranding. No hernia, mass or bulky lymphadenopathy. Disc and bony degenerative changes are present. There is chronic dislocation at the right hip joint. No acute bone findings seen. Vascular calcifications are present. Fluid retention is seen in the subcutaneous fatty tissues. IMPRESSION: No obstruction, free air or surgically emergent finding. Peg tube is well positioned. No gross gastric abnormality seen. Large stool volume filling but not dilating the colon from cecum to sigmoid colon. There is large sto ol volume dilating the rectum. Fluid retention in the subcutaneous fatty tissues. Full assessment is limited is the absence of IV contrast.
[2018-11-04] MEDS ORDERED: METRONIDAZOLE 500mg IVPB 500 MG/100 ML BAG IV ONE (19:36)
[2018-11-04] MEDS ORDERED: CEFTRIAXONE/SWI 1gm 1 GM/10 ML SYR ONE (19:36)
[2018-11-04] MEDS ORDERED: SODIUM CHLORIDE 0.9% 10ML INJ IV PRN (20:08)
[2018-11-04] MEDS: NA CHLORIDE 0.9% 1,000 ML IV SCH (22:37)
[2018-11-05] MEDS: METRONIDAZOLE 500mg IVPB 500 MG/100 ML BAG IV SCH ×3 (00:48→16:33)
[2018-11-05] MEDS: D5 0.9 NS 1,000 ML IV SCH ×2 (04:20→16:32)
[2018-11-05 05:33] LABS: Absolute Lymphocytes (CBC) 1.1 K/uL (0.7-4.9); Absolute Monocytes 1.3 K/uL (0.1-1.3); Absolute Neutrophil 10.5 K/uL (1.8-8.0); Basophils % 0.2 % (0-1.3); Lymphocytes % 8.5 % (15.3-44.8); MPV 8.7 fL (7.6-11.3); Monocytes % 10.1 % (3.3-12.3); RBC Red Blood Cell Count 3.28 M/uL (4.33-5.43)
[2018-11-05 05:56] LABS: Albumin 1.6 g/dL (3.4-5.0); Bilirubin Total 0.2 mg/dL (0.2-1.0); Potassium 4.6 mmol/L (3.5-5.1); Protein, Total 6.5 g/dL (6.4-8.2)
[2018-11-05] MEDS ORDERED: CEFTRIAXONE 1 GM/NS 50 ML 1 GM/50 ML BAG IV SCH (07:30)
[2018-11-05] MEDS: NA CHLORIDE 0.9% 1,000 ML IV SCH (09:28)
[2018-11-05] MEDS: CEFTRIAXONE/SWI 1gm 1 GM/10 ML SYR IV SCH ×2 (09:47→20:12)
[2018-11-05] MEDS: PANTOPRAZOLE 40 MG INJ IVP SCH (09:48)
--- NOTE | 2018-11-05 11:31 | P.PN ---
Subjective Date of Service: 11/05/18 Chief Complaint: PEG tube malfunction, gastritis, coffee-ground leakage Patient seen and examined at bedside. No family at bedside. Chart reviewed and case discussed with nursing staff. Little more alert than yesterday and I am unsure of his baseline. Patient is a long term patient, no family at bedside today. No acute events noted overnight Review of Systems 10-point ROS is otherwise unremarkable Physical Examination - Vital Signs Temperature: 97.7 F Blood Pressure: 161/72 Pulse: 97 Respirations: 22 Pulse Ox (%): 95 - Physical Exam General: In no apparent distress, Demented HEENT: Atraumatic, PERRLA, EOMI Neck: Supple, JVD not distended Respiratory: Clear to auscultation bilaterally, Normal air movement Cardiovascular: Regular rate/rhythm, Normal S1 S2 Gastrointestinal: Normal bowel sounds, No tenderness, Other (PEG tube in place, no discharge noted. Cellulitic area around PEG) Musculoskeletal: No tenderness, Contractures (Severe) Integumentary: Erythema (Around PEG) Neurological: Normal speech, Normal tone, Normal affect Lymphatics: No axilla or inguinal lymphadenopathy - Studies Laboratory Data (last 24 hrs) 11/04/18 16:50: PT 11.8, INR 1.00 11/04/18 16:50: WBC 12.5 H, Hgb 9.8 L, Hct 30.4 L, Plt Count 270 11/04/18 16:50: Sodium 142, Potassium 5.1, BUN 64 H, Creatinine 2.26 H, Glucose 136 H, Magnesium 2.5 H, Total Bilirubin 0.1 L, AST 53 H, ALT 55, Alkaline Phosphatase 206 H, Lipase 155 Assessment And Plan - Current Problems (Diagnosis) (1) Functional quadriplegia Current Visit: No Status: Acute (2) Malfunction of percutaneous endoscopic gastrostomy (PEG) tube Onset Date: 01/30/17 Current Visit: No Status: Acute (3) Diabetes mellitus Onset Date: 01/11/17 Current Visit: No Status: Chronic (4) GERD (gastroesophageal reflux disease) Onset Date: 01/11/17 Current Visit: No Status: Chronic Qualifiers: (5) History of CVA with residual deficit Onset Date: 01/11/17 Current Visit: No Status: Chronic (6) Hypertension Onset Date: 01/11/17 Current Visit: No Status: Chronic Qualifiers: (7) Renal insufficiency Onset Date: 01/11/17 Current Visit: No Status: Chronic (8) Vascular dementia Onset Date: 10/15/14 Current Visit: No Status: Chronic (9) Cellulitis Current Visit: Yes Status: Acute Qualifiers: Site of cellulitis: trunk Site of cellulitis of trunk: abdominal wall Qualified Code(s): L03.311 - Cellulitis of abdominal wall - Plan Malfunction of percutaneous endoscopic gastrostomy (PEG) tube Continue to keep NPO, PEG tube on suction GI evaluation pending Continue IV Protonix H&H remained stable, no active discharge noted at this time. Abdominal wall cellulitis, around PEG Continue IV antibiotics: Rocephin and Flagyl, day 2. Cultures pending. Renal insufficiency, acute Creatinine improving. Continue IV fluid Continue to avoid nephrotoxic medications Diabetes mellitus Accu-Cheks Mild sliding scale insulin, as patient is NPO GERD (gastroesophageal reflux disease) Continue Protonix as above Hypertension Blood pressure stable. Will continue to monitor and adjust medications as needed Vascular dementia History of CVA with residual deficit Functional quadriplegia DVT prophylaxis: Hold GI prophylaxis: Protonix as above Diet: Keep NPO Disposition: Pending GI workup Discharge Plan: [facility]
[2018-11-05] MEDS: HYDRALAZINE HCL 25 MG TABLET FT SCH ×2 (13:12→20:08)
[2018-11-05] MEDS: CARVEDILOL 25 MG TAB FT SCH (20:08)
[2018-11-05] MEDS: ATORVASTATIN 80 MG TAB FT SCH (20:09)
[2018-11-05] MEDS ORDERED: FAMOTIDINE 40 MG FT SCH (21:00)
[2018-11-06] MEDS: METRONIDAZOLE 500mg IVPB 500 MG/100 ML BAG IV SCH ×3 (00:10→16:25)
[2018-11-06] MEDS: D5 0.9 NS 1,000 ML IV SCH ×2 (06:26→09:00)
[2018-11-06 07:16] LABS: Absolute Lymphocytes (CBC) 0.8 K/uL (0.7-4.9); Absolute Neutrophil 8.1 K/uL (1.8-8.0); Basophils % 0.7 % (0-1.3); Eosinophils % 0.6 % (0-4.4); Hematocrit 26.9 % (39.6-49.0); Lymphocytes % 8.1 % (15.3-44.8); MPV 8.8 fL (7.6-11.3); Monocytes % 10.3 % (3.3-12.3); RBC Red Blood Cell Count 2.93 M/uL (4.33-5.43)
[2018-11-06 07:40] LABS: Albumin 1.5 g/dL (3.4-5.0); Bilirubin Total 0.2 mg/dL (0.2-1.0); Phosphorus 2.8 mg/dL (2.5-4.9); Potassium 4.1 mmol/L (3.5-5.1); Protein, Total 6.1 g/dL (6.4-8.2)
[2018-11-06] MEDS: PARoxetine HCl 10 MG TAB FT SCH (09:00)
[2018-11-06] MEDS: AMLODIPINE 5 MG TAB FT SCH (09:00)
[2018-11-06] MEDS: ASPIRIN 81 MG CHEWABLE TABLET FT SCH (09:00)
[2018-11-06] MEDS: HYDRALAZINE HCL 25 MG TABLET FT SCH ×3 (09:00→23:15)
[2018-11-06] MEDS: DOCUSATE SODIUM FT SCH (09:00)
[2018-11-06] MEDS: CLOPIDOGREL 75 MG TABLET FT SCH (09:00)
[2018-11-06] MEDS: PANTOPRAZOLE 40 MG INJ IVP SCH (09:03)
[2018-11-06] MEDS: CEFTRIAXONE/SWI 1gm 1 GM/10 ML SYR IV SCH ×2 (09:03→23:13)
[2018-11-06] MEDS ORDERED: NA CHLORIDE 0.9% 1,000 ML ONE (11:01)
[2018-11-06] MEDS ORDERED: PROPOFOL 200 MG/20 ML VIAL IV ONE (11:38)
[2018-11-06] MEDS ORDERED: LIDOCAINE 1% MPF 5 ML VIAL ONE (11:38)
--- NOTE | 2018-11-06 12:13 | ENDO RPT ---
[address], [address] EGD PROCEDURE REPORT EXAM DATE: 11/06/2018 PATIENT NAME: Leonardo Kumari MR#: [id number] BIRTHDATE: 1940 ATTENDING: Alen Cornell Dr STATUS: inpatient - [facility] BI[employer]UTTER HELPER: Coleen Amos and Carito Segundo RN INDICATIONS: The patient is a 78 yr old Male here for an EGD due to upper G.I. bleeding and anemia PROCEDURE PERFORMED: EGD with biopsy MEDICATIONS: Per Anesthesia. TOPICAL ANESTHETIC: none CONSENT: The patient understands the risks and benefits of the procedure and understands that these risks include, but are not limited to: sedation, allergic reaction, infection, perforation and/or bleeding. Alternative means of evaluation and treatment include, among others: physical exam, x-rays, and/or surgical intervention. The patient elects to proceed with this endoscopic procedure. DESCRIPTION OF PROCEDURE: During intra-op preparation period all mechanical medical equipment was checked for proper function. Hand hygiene and appropriate measures for infection prevention was taken. Procedure, possible complications, and alternatives including but not limited to the possibility of bleeding, perforation, tear, infection, sepsis, need for surgery, need for blood transfusion, and anesthesia related complications were explained to the patient. After the risks, benefits and alternatives of the procedure were thoroughly explained, Informed consent was verified, confirmed and timeout was successfully executed by the treatment team. The patient was placed in the left lateral position. The patient was anesthetized with topical anesthesia. Through the anesthetized oropharyngeal area, the scope was passed without any difficulty. The Pentax EG-[id number] ([id number]) endoscope was introduced through the mouth and advanced to the third portion of the duodenum. Retroflexed views revealed a small hiatal hernia. The gastroscope was then slowly withdrawn and removed. LA Class D esophagitis was found in the lower esophagus. With jumbo forceps, a biopsy was obtained and sent to pathology. Post-operative change PEG tube was noted in the body of the stomach. A small hiatal hernia was found An ulcer was found in the antrum. Multiple biopsies were obtained and sent to pathology. Duodenitis was found in the descending duodenum. Multiple ( 10) small 2-3 mm shallow ulcers were found in the descending duodenum. ADVERSE EVENTS: There were no complications. IMPRESSIONS: 1. LA Class D esophagitis in the lower esophagus 2. Old PEG tube in the distal body of stomach, loose - so snugged up to prevent further PEG stoma leakage 3. Small hiatal hernia 4. 3 mm clean-based ulcer in the antrum, s/p gastric biopsies 5. Duodenitis in the descending duodenum 6. Multiple ( 10) shallow 2-3 mm clean-based ulcers in the descending duodenum RECOMMENDATIONS: 1. await biopsy results 2. acid suppression therapy REPEAT EXAM: Alen Cornell Dr eSigned: Alen Cornell Dr 11/06/2018 12:12 PM cc: CPT CODES: ICD9 CODES: PATIENT NAME: Leonardo Kumari MR#: [id number]
--- NOTE | 2018-11-06 15:26 | PN ---
Date of Progress Note: 11/06/2018 Subjective: Patient is seen and examined. Chart reviewed and case discussed with RN. The patient i s demented and nonverbal. No acute events overnight. The patient is going for EGD today and possibl e PEG tube replacement by Dr. Cornell. Code Status: Full code. Objective: Vital Signs: Temperature 97.7, heart rate 86, blood pressure 136/60, respirations 16, O2 100% on room air. General: Awake, alert, oriented to self, elderly male. CV: S1, S2. Regular rate and rhythm. Peripheral pulses present. Respiratory: Moving air well bilaterally. No wheezing. Gastrointestinal: Abdomen is soft, nontender, nondistended. Positive bowel sounds. PEG tube in brad[place] ce. Extremities: No clubbing, cyanosis, edema. Neuro: The patient has contractures on the right side. Laboratory Data: Sodium 148, potassium 4.1, chloride 115, CO2 26, BUN 40, creatinine 1.77, glucose 1 86, calcium 8.1, phosphorus 2.8, albumin 1.5. WBC 10.1, H and H 8.6, 26.9, platelets 258, neutrophil s 80%. PEG tube; gram stain and culture shows 3+ yeast, 2+ gram-negative rods. Assessment And Plan: 1.Malfunction of PEG tube. The patient is going for possible PEG tube replacement by Dr. Aneta martin. Feeds on hold for now. 2.Functional quadriplegia. 3.Diabetes mellitus type 2 [id number] with hyperglycemia. Continue sliding scale insulin and monitor Accu-Cheks. 4.Gastroesophageal reflux disease without esophagitis. We will continue PPI. 5.History of cerebrovascular accident with residual deficit. 6.Vascular dementia without behavioral disturbance. 7.Essential hypertension, stable, resume home medications. 8.Chronic kidney disease stage 3. Creatinine has improved since admission. Currently back to basel ine. 9.Abdominal wall cellulitis around PEG. We will continue IV antibiotics. Culture showing gram-nega tive rods and yeast present. 10.Deep venous thrombosis prophylaxis on hold due to procedure. GI prophylaxis with PPI. Anticipat e EGD today acute. SA/MODL Voice ID: [id number] Report ID: [id number]
[2018-11-06] MEDS: CARVEDILOL 25 MG TAB FT SCH (23:15)
[2018-11-06] MEDS: ATORVASTATIN 80 MG TAB FT SCH (23:15)
[2018-11-07] MEDS: METRONIDAZOLE 500mg IVPB 500 MG/100 ML BAG IV SCH ×2 (01:41→09:00)
[2018-11-07] MEDS: D5 0.9 NS 1,000 ML IV SCH ×3 (05:24→22:04)
[2018-11-07 07:10] LABS: Absolute Lymphocytes (CBC) 0.8 K/uL (0.7-4.9); Absolute Neutrophil 7.6 K/uL (1.8-8.0); Basophils % 0.8 % (0-1.3); Eosinophils % 0.8 % (0-4.4); Hematocrit 27.4 % (39.6-49.0); Lymphocytes % 8.6 % (15.3-44.8); MPV 8.4 fL (7.6-11.3); Monocytes % 10.8 % (3.3-12.3); RBC Red Blood Cell Count 2.95 M/uL (4.33-5.43)
[2018-11-07 07:51] LABS: Albumin 1.4 g/dL (3.4-5.0); Bilirubin Total 0.2 mg/dL (0.2-1.0); Potassium 3.7 mmol/L (3.5-5.1); Protein, Total 5.9 g/dL (6.4-8.2)
[2018-11-07] MEDS: CEFTRIAXONE/SWI 1gm 1 GM/10 ML SYR IV SCH (09:00)
[2018-11-07] MEDS ORDERED: GLUCERNA 1.5 CAL 1,000 ML BOT FT SCH (09:00)
[2018-11-07] MEDS: DOCUSATE SODIUM FT SCH (09:00)
[2018-11-07] MEDS: CLOPIDOGREL 75 MG TABLET FT SCH (10:11)
[2018-11-07] MEDS: AMLODIPINE 5 MG TAB FT SCH (10:11)
[2018-11-07] MEDS: PANTOPRAZOLE 40 MG INJ IVP SCH (10:11)
[2018-11-07] MEDS: ASPIRIN 81 MG CHEWABLE TABLET FT SCH (10:11)
[2018-11-07] MEDS: HYDRALAZINE HCL 25 MG TABLET FT SCH ×2 (10:11→13:12)
[2018-11-07] MEDS: PARoxetine HCl 10 MG TAB FT SCH (10:11)
--- NOTE | 2018-11-07 12:33 | P.PN ---
Subjective Date of Service: 11/07/18 Chief Complaint: PEG tube malfunction, gastritis, coffee-ground leakage Subjective: New changes (Intolerant of bolus TF today with coughing and possible aspiration. PEG stoma culture reportedly (verbal) positive for E coli and Pseudomonas.) Review of Systems 10-point ROS is otherwise unremarkable General: Weakness, Malaise Gastrointestinal: Vomiting Physical Examination - Vital Signs Temperature: 97.4 F Blood Pressure: 161/71 Pulse: 92 Respirations: 18 Pulse Ox (%): 98 - Studies Microbiology Data (last 24 hrs): 11/04/18 17:40 Clean Catch Urine [place] Count - Final <10,000 CFU/ML. 11/04/18 17:40 Clean Catch Urine - Final Assessment And Plan - Current Problems (Diagnosis) (1) Dysphagia Current Visit: Yes Status: Acute (2) PEG (percutaneous endoscopic gastrostomy) status Current Visit: Yes Status: Acute (3) Infection Current Visit: Yes Status: Acute (4) Functional quadriplegia Current Visit: No Status: Acute (5) Diabetes mellitus Onset Date: 01/11/17 Current Visit: No Status: Chronic (6) History of CVA with residual deficit Onset Date: 01/11/17 Current Visit: No Status: Chronic (7) Renal insufficiency Onset Date: 01/11/17 Current Visit: No Status: Chronic - Plan REC: 1) await CXR 2) if aspiration confirmed, would pursue surgical J-tube & remove PEG 3) await ID rec on PEG stoma infection with E coli & Pseudomonas cultured there 4) IV antibiotics 5) consider Dobhoff tube placement and TFs for now
--- NOTE | 2018-11-07 12:35 | RAD REPORT ---
EXAM DESCRIPTION: RAD - Chest Single View - 11/07/2018 12:26 pm CLINICAL HISTORY: possible patient aspiration Chest pain. COMPARISON: Chest Single View dated 11/04/2018; Chest Single View dated 07/11/2018; Abdomen 1 View (K UB) dated 01/29/2017; Abdomen 1 View (KUB) dated 12/17/2016 FINDINGS: Portable technique limits examination quality. The lungs are grossly clear. The heart is normal in size. No displaced fractures. IMPRESSION: No acute intrathoracic process suspected.
[2018-11-07] MEDS ORDERED: Meropenem 500 MG VIAL IV SCH (17:00)
[2018-11-07] MEDS: ENOXAPARIN 30 MG/0.3 ML SQ SCH (17:00)
[2018-11-07] MEDS: Meropenem 500 MG in NA CHLORIDE 0.9% 100 ML IV SCH (17:28)
--- NOTE | 2018-11-07 18:30 | CON ---
History Of Present Illness: I was consulted for cellulitis of abdomen secondary to PEG tube malfunct ion. The patient is unable to give any history. Most of the history was obtained through medical re cords and staff. The patient has significant history of stroke, diabetes mellitus, hypertension, dem entia, severe disability, debility. Past Medical History: As per HPI plus hypercholesterolemia, congestive heart failure, chronic renal disease, contracture of the right lower extremity, history of UTIs, PEG tube placement, depression, G ERD. Social History: Nonsmoker, nondrinker. Family History: Noncontributory. Medications: Rocephin, Flagyl. See MARS for other medication. Allergies: BUTORPHANOL, MIDAZOLAM. Review of Systems: Unable to obtain. Physical Examination: General: This is a 78-year-old male, lying in bed, not in any acute cardiopulmonary distress. Vital Signs: Temperature 97.4, pulse 92, respirations 18, blood pressure 161/71. HEENT: Unremarkable. Neck: Supple. Lungs: Basal crackles. Heart: S1, S2, regular. Abdomen: Soft and firm. Bowel sounds present. Erythematous changes noted around the PEG tube site. Extremities: Extremity contractures noted. Muscle wasting noted. Laboratory Data: WBC 9.6, down from 13.2, platelets are 218, hemoglobin 8.6. Chemistry shows sodium 148, potassium 3.7, chloride 117, bicarb 25, BUN 26, creatinine 1.57, glucose is 172, albumin is 1.4 . Assessment And Plan: Abdominal wall cellulitis secondary to PEG tube malfunction, stroke with the fu nctional quadriplegia and contractures, muscle wasting and severe protein-calorie malnourishment note d, diabetes mellitus, gastroesophageal reflux, renal insufficiency, currently being treated with Roce phin and Flagyl. The patient has extended-spectrum beta-lactamases Escherichia coli and Pseudomonas aeruginosa. Escherichia coli sensitive to meropenem, but Pseudomonas resistant to meropenem. Assess ment and plan: Abdominal wall cellulitis secondary to PEG tube malfunction. We will recommend to st art the patient on meropenem and gentamicin. Monitor kidney function closely. Continue wound care w ith the silver alginate to the wound site. Continue supportive care. Thank you Dr. Pace for consult. NF/MODL Voice ID: [id number] Report ID: [id number]
[2018-11-07] MEDS ORDERED: HYDRALAZINE HCL 20 MG/ML VIAL IV PRN (18:40)
[2018-11-07] MEDS: HYDRALAZINE HCL 20 MG/ML VIAL IV SCH (21:57)
--- NOTE | 2018-11-07 23:09 | CON ---
Date of Consultation: 11/07/2018 Reason For Consultation: Malfunction of the PEG tube, gastritis, and peptic ulcers. History Of Present Illness: This is the case of a 78-year-old patient with history of dementia, hype rtension, diabetes, history of CVA, found to have a PEG tube with leaks around the area. Patient had endoscopy done yesterday by Dr. Cornell, plating equipment tender; found the PEG tube to be defective and h e requested a surgical consult for a PEG tube removal and placement of a jejunostomy tube. The patie nt is unable to give any information since he has a history of dementia. Most of the information is obtained from the chart and also the daughter that comes here. Allergies: INCLUDE BIRDS AND STADOL. Medications: Reviewed including Plavix and aspirin. Past Medical History: Includes diabetes, CVA, hypertension, renal insufficiency, dementia, UTI, seps is, depression. Past Surgical History: Include gastrostomy tube and endoscopy. Social History: He does not smoke. He does not drink alcohol. Family History: Unknown. Review of Systems: Unable to be obtained. Physical Examination: General: The patient is awake. He has history of dementia, cannot give us information specifically. HEENT: Pupils are anicteric. Neck: Supple. Heart: S1, S2. Abdomen: Soft and depressible. There is a PEG tube to the left of the midline. They noticed some f luid coming off from the feeding through this area and then basically some redness around the area of incision. Extremities: Patient does have dorsalis pedis pulses, although he is severely contracted. Laboratory Data: Blood work shows WBC count of 9.6, hemoglobin 8.6, INR is 1, chloride is 117, gluco se 172. CAT scan of the abdomen and pelvis reviewed and interpreted by Dr. Lizama as no obstruction . The patient has a PEG tube. EGD done by Dr. Cornell described as esophagitis, small hiatal hernia, antrum ulcer, duodenitis, duodenal ulcer. Assessment And Plan: This is a 78-year-old patient. We were consulted by the primary and Dr. Cornell for a removal of the PEG tube and placement of a jejunostomy tube that will require in this case, la parotomy, may require closure of the gastrostomy tube directly, and then placement of a jejunostomy t ube. The benefits, alternatives, and risks were explained. Family will sign the consent whenever th ey are ready for infection, bleeding, damage to adjacent structures, anesthesia complication, intraab dominal abscesses, leakage of gastric recess, AK, even . Currently, the family left at this mom ent. We expect him to be here once again tomorrow so we can once again go through this with them, sp ecifically the daughter, and then proceed accordingly. RUFINO/AMY Voice ID: [id number] Report ID: [id number]
[2018-11-08] MEDS ORDERED: MORPHINE 2 MG/ML SYR IV PRN (01:00)
[2018-11-08] MEDS: Meropenem 500 MG in NA CHLORIDE 0.9% 100 ML IV SCH ×3 (01:14→17:00)
[2018-11-08] MEDS: D5 0.9 NS 1,000 ML IV SCH ×2 (01:16→12:00)
--- NOTE | 2018-11-08 02:37 | PN ---
Date of Progress Note: 11/07/2018 Subjective: The patient is seen and examined. Chart reviewed and case discussed with RN and Dr. Cornell. The patient had EGD yesterday and his PEG tube was tightened up and stitched from the inside; however, the patient did not tolerate bolus feed today and had coughing episode and had feed come out from PEG tube site. The patient also has some pustular area around the PEG tube site. The patient is largely nonverbal. Medications: List reviewed. Physical Examination: Vital Signs: Temperature 97.4, heart rate 92, blood pressure 161/71, respirations 18, O2 98% on room air. General: Awake, alert, elderly male, ill appearing, in some mild distress. CV: S1, S2. Regular rate and rhythm. Peripheral pulses present. Respiratory: Moving air well bilaterally. No wheezing. Gastrointestinal: Abdomen is soft, nontender, nondistended. Positive bowel sounds. Extremities: No clubbing, cyanosis. The patient has lower extremity edema. Neuro: Right-sided weakness along with contractures on the right side. Skin: PEG tube insertion site has some pustular area around it. No surrounding erythema. Laboratory Data: Sodium 148, potassium 3.7, chloride 117, CO2 25, BUN 26, creatinine 1.57, glucose 172, calcium 8, albumin 1.4. WBC 9.6, H and H 8.6 and 27.4, platelets 218, neutrophils 79%. PEG tube cultures growing out Escherichia coli and pseudomonas. Chest x-ray personally reviewed shows no acute intrathoracic process suspected. Assessment And Plan: A 78-year-old male with: 1. Malfunction of PEG tube. The patient will likely need to have the PEG tube removed and have J-tube placed by surgery. 2. PEG tube site infection with extended spectrum beta-lactamase, Escherichia coli, and pseudomonas. Antibiotics switched over to meropenem. We will need to add gentamicin. Consult ID. 3. Functional quadriplegia. 4. Diabetes mellitus type 2, non-insulin requiring with hyperglycemia. We will continue sliding scale insulin and monitor Accu-Cheks. 5. Hypernatremia. The patient will likely now need Dobhoff placement. Unable to do water flushes due to PEG dysfunction. We will continue to monitor. Adjust IV fluids. 6. History of cerebrovascular accident with residual deficit. The patient has right-sided weakness and contractures. 7. Vascular dementia without behavioral disturbance. 8. Essential hypertension, stable on home medications. 9. Chronic kidney disease, stage 3. Creatinine around baseline. We will continue. 10. Deep venous thrombosis prophylaxis was on hold due to procedure. We will resume 24 hours post procedure with Lovenox renally dosed. /AMY Voice ID: [id number] Report ID: [id number] NALINI
[2018-11-08 06:00] LABS: Absolute Lymphocytes (CBC) 0.9 K/uL (0.7-4.9); Absolute Monocytes 1.3 K/uL (0.1-1.3); Absolute Neutrophil 7.7 K/uL (1.8-8.0); Basophils % 0.4 % (0-1.3); Hematocrit 26.9 % (39.6-49.0); Lymphocytes % 8.8 % (15.3-44.8); MPV 8.1 fL (7.6-11.3); Monocytes % 13.1 % (3.3-12.3); RBC Red Blood Cell Count 2.94 M/uL (4.33-5.43)
[2018-11-08 06:13] LABS: Potassium 3.5 mmol/L (3.5-5.1)
[2018-11-08] MEDS ORDERED: NA CHLORIDE 0.9% 250 ML ONE (07:02)
[2018-11-08] MEDS ORDERED: KCL 20 MEQ/100 mL IVPB 20 MEQ/100 ML BAG IV SCH (07:30)
[2018-11-08] MEDS: HYDRALAZINE HCL 20 MG/ML VIAL IV SCH (09:00)
[2018-11-08] MEDS: PANTOPRAZOLE 40 MG INJ IVP SCH (10:22)
[2018-11-08] MEDS ORDERED: FLUCONAZOLE 200mg IVPB 200 MG/100 ML BAG IV ONE (11:05)
[2018-11-08] MEDS: Gentamicin Inj 140 MG in NA CHLORIDE 0.9% 100 ML IV SCH (15:56)
--- NOTE | 2018-11-08 16:19 | PN ---
Date of Progress Note: 11/08/2018 Subjective: The patient seen and examined, chart reviewed, and case discussed with RN. The patient is supposed to be going for J-tube placement today, however, difficulty obtaining consent from family members. Medications: List reviewed. Objective: Vital Signs: Temperature 98.5, heart rate 104, blood pressure 137/65, respirations 19, a nd O2 of 96% on room air. General: Awake, alert, oriented, in some mild distress due to pain. Elderly male, somewhat ill-appe aring. CV: S1, S2. Sinus tachycardia. Peripheral pulses present. Respiratory: Moving air well bilaterally. Abdomen: Soft, nontender, nondistended. Positive bowel sounds. Extremities: No clubbing or cyanosis. The patient has pedal edema. Neuro: the patient has severe contractures on the right side. Speech is comprehensible. Skin: PEG tube site has some pustular drainage. The patient also has some irritation of the skin an d erythema from his contracture, where his leg and knee are against his abdominal wall. Laboratory Data: Sodium 150, potassium 3.5, chloride 119, CO2 24, BUN 21, creatinine 1.56, glucose 1 62, calcium 8.1. WBC 10, H and H 9 and 26.9, platelets 230, neutrophils 76%. PEG tube culture growi ng out ESBL E coli and Pseudomonas. Assessment And Plan: A 78-year-old male with: 1.Malfunction of PEG tube, likely need to be removed. The patient going for J-tube placement by diana valverde. 2.PEG tube site infection with abdominal cellulitis secondary to extended-spectrum beta-lactamase Es cherichia coli and Pseudomonas. Antibiotics have been adjusted. Appreciate Infectious Disease consu ltation. 3.Functional quadriplegia. 4.Diabetes mellitus type 2 jgz-tbypgag-aqgjnjuyo with hyperglycemia. We will continue sliding scale insulin and monitor Accu-Cheks. 5.Hypernatremia. We will adjust IV fluid rate. The patient is currently on D5W. Once the J-tube i s functional and we will start on water flushes. 6.History of cerebrovascular accident with residual deficit, right-sided weakness and contractures. 7.Vascular dementia without behavioral disturbance. 8.Essential hypertension. Continue home medications. Stable. 9.Chronic kidney disease stage 3. Creatinine currently at baseline. Continue to monitor. 10.Deep venous thrombosis prophylaxis. We will resume Lovenox 24 hours post procedure. 11.Abdominal wall skin irritation and erythema related to right leg contracture. We will adjust the leg and place padding in between and continue with wound care. /AMY Voice ID: [id number] Report ID: [id number]
[2018-11-08] MEDS: D5.45NS W/KCL 20MEQ 20 MEQ/1,000 ML BAG IV SCH ×2 (16:49→23:16)
[2018-11-08] MEDS ORDERED: NA CHLORIDE 0.9% 1,000 ML ONE ×2 (16:59→19:39)
[2018-11-08] MEDS ORDERED: PROPOFOL 200 MG/20 ML VIAL IV ONE (17:10)
[2018-11-08] MEDS ORDERED: LIDOCAINE 2% MPF 5 ML VIAL ONE (17:10)
[2018-11-08] MEDS ORDERED: FENTANYL CITR 250 MCG/5 ML ONE (17:10)
[2018-11-08] MEDS ORDERED: ROCURONIUM 50 MG/5 ML VIAL IV ONE ×2 (17:11→18:47)
[2018-11-08] MEDS ORDERED: ONDANSETRON 4 MG/2 ML VIAL ONE (19:02)
[2018-11-08] MEDS ORDERED: GLYCOPYRROLATE 0.2 MG/ML SYR ONE (19:02)
[2018-11-08] MEDS ORDERED: NEOSTIGMINE 1 MG/ML -10 ML VIAL ONE (19:10)
[2018-11-08] MEDS ORDERED: KETOROLAC 30 MG/ML INJ ONE (20:01)
--- NOTE | 2018-11-08 20:58 | P.BOP ---
Preoperative diagnosis: functional quadriplegia, severe contractures, muscle wasting, PEG malfuctio Postoperative diagnosis: DM, GE reflux, renal insufficiencyprotein-calorie malnourishment Primary procedure: Exploratory laparotomy, extensive Lysis of adhesions Secondary procedure: open jejunostomy tube placement, Estimated blood loss: <100cc Findings: see dictation Anesthesia: General Complications: None Drain(s): Other Transferred to: Recovery Room Condition: Good
[2018-11-08] MEDS: MORPHINE 2 MG/ML SYR IV PRN (23:17)
[2018-11-09] MEDS: Meropenem 500 MG in NA CHLORIDE 0.9% 100 ML IV SCH ×3 (00:44→18:35)
[2018-11-09 05:50] LABS: Absolute Lymphocytes (CBC) 0.7 K/uL (0.7-4.9); Absolute Monocytes 1.5 K/uL (0.1-1.3); Absolute Neutrophil 20.3 K/uL (1.8-8.0); Basophils % 0.3 % (0-1.3); Eosinophils % 0.1 % (0-4.4); Hematocrit 31.7 % (39.6-49.0); MPV 8.5 fL (7.6-11.3); Monocytes % 6.6 % (3.3-12.3); RBC Red Blood Cell Count 3.37 M/uL (4.33-5.43)
[2018-11-09 06:10] LABS: Blood Morphology Comment NOT SEEN (NOT SEEN); Platelet Estimate ADEQ
[2018-11-09] MEDS: D5.45NS W/KCL 20MEQ 20 MEQ/1,000 ML BAG IV SCH (06:20)
[2018-11-09 07:02] LABS: Magnesium 1.9 mg/dL (1.8-2.4); Potassium 4.2 mmol/L (3.5-5.1)
[2018-11-09] MEDS: D5W 1,000 ML IV SCH (08:51)
[2018-11-09] MEDS: PANTOPRAZOLE 40 MG INJ IVP SCH (08:51)
[2018-11-09] MEDS ORDERED: DOCUSATE SODIUM 100 MG/10 ML FT SCH (09:00)
--- NOTE | 2018-11-09 10:58 | OP ---
Date of Procedure: 11/08/2018 Surgeon: Zach Soto MD Preoperative Diagnoses: Percutaneous endoscopic gastronomy malfunction, severe malnourishment, renal insufficiency, functional quadriplegia with a severe contractures, muscle wasting, gastroesophageal reflux, hypercholesterolemia, congestive heart failure. Postoperative Diagnoses: Percutaneous endoscopic gastronomy malfunction, severe malnourishment, serg l insufficiency, functional quadriplegia with a severe contractures, muscle wasting, gastroesophageal reflux, hypercholesterolemia, congestive heart failure, plus extensive lysis of adhesions. Procedure: Exploratory laparotomy, extensive lysis of adhesions, open jejunostomy tube placement. Estimated Blood Loss: Less than 100 disease. Specimen: None. Findings: Patient comes with above diagnoses also next to the PEG tube. Once we opened the midline incisions not far away from the PEG tube, we noticed the tissue and the fatty tissue to have fluid co mponent that may resemble an abdominal wall cellulitis. The patient also have intraabdominal adhesio ns to have a PEG placed before. I did not see any leakage coming from that area from the stomach at this moment. There are extensive intraabdominal adhesions around the area. In order for us to do th e procedure, we have to do lysis of adhesions. The patient has severe contraction to the point that his legs are all covering area infraumbilical not allowing us to go below the belly button to make th e incision. The patient also has a paramedial PEG placed, which is close to the midline, although th e area between the belly button and the close margins are very short, so leaving us only a little spa ce left to be able to do this. We even have to prep his leg and his arm, which is still in the surgi elida field, we have to put a bag and keep the area sterile and just move that because the arm cannot b e removed and the leg away from the abdominal cavity. With all those restrictions, then we have to d o this laparotomy. The benefits, alternatives, and risks of this procedure laparotomy, placement of jejunostomy tube, possible removal of a gastrostomy tube fully discussed with the patient and family. The benefits, alternatives, and risks fully explained which include but not limited to infection, b leeding, damage to adjacent structures, anesthesia complication, [place], and even . Specific time i n this case, jejunostomy tube seems to be inside, it is inside the stomach, we might not remove that at this moment. The patient has multiple medical problems and removing that PEG tube may require par t of the stomach since it may be adhesed, to be removed causing an open repair of the stomach making this surgery even more dangerous. So, we are going to make the decision during surgery. Description Of Procedure: The patient was brought to the operating room, placed in supine position. Anesthesia was done without complication. Took almost an hour just to be able to prep and drape thi s patient in the usual sterile fashion. The arm since it is on the abdominal view have to be prepped with special sterile dressings because we cannot get the arm out of the field. The same with the le g. The abdomen was prepped and draped in sterile fashion including the PEG. An area was selected on the abdomen. Incision was made in that area. Incision was carried down to fascia. When we entered the fascia, the stomach touched the anterior abdominal wall, so we have to do extensive lysis of adh esions to be able to relieve that. Then we ran the bowel from the ligament of Treitz to the area of the terminal ileum. We selected an area of the jejunum to put a tube. We made sure we are going pro ximal to distal. We made a small incision on the lateral side of the abdomen and the tube to this on e is the Carrasco tube. After that, we selected an area on the bowel and made a small enterotomy, put a purse-string around the area, fed tube there, inflated the balloon with about 7 cc. That was fed th rough the bowel about 20 cm to 30 cm. After that, we created a Witzel tunnel to accommodate tube of jejunostomy. We left the stitches there including the purse-string and those were used to secure nancy t jejunostomy tube and apposed that antimesenteric border against the peritoneum using a full thickne ss a bite making the bowel go against the abdominal wall. The bowel looks nice without any kinking. Looks intact. No leakage. The stitches were removed. The needle count was correct. Profuse irrig ation of the abdomen was done. The PEG tube at this moment, in order for me to remove the PEG tube, I will have to remove part of the wall of the stomach which is adhesed to the abdominal wall. That w ill trigger a large stomach resection and closure, and in this debilitated patient, malrotation may e nd up worsening what it is right now. So, what we are going to do is we are just going to leave that PEG their connected to suction, instead of nutrition. We are not going to use it for nutrition. We will use jejunostomy tube for nutrition. Once he gets better that we will let he can heal, then we can remove the percutaneous tube. At that moment then after making that decision, we put omentum ove r the area of the new jejunostomy area surrounding the area and then we closed the fascia with #2 nyl on. Since the abdomen is not completely healthy and there is some tissue in that area, it is hard to rule out any infection there. I left the skin to close by secondary intention with wet-to-dry dress ing over the area. The patient tolerated the procedure well. The patient was sent to recovery in st able condition. Sponge count, instrument counts, and needle counts correct. Since the patient has multiple medical history, high risk, postoperative recovery failure, we are goi ng to put the patient in the ICU for close observation. RUFINO/AMY Voice ID: [id number] Report ID: [id number]
[2018-11-09] MEDS: Gentamicin Inj 140 MG in NA CHLORIDE 0.9% 100 ML IV SCH (12:00)
[2018-11-09] MEDS: MORPHINE 2 MG/ML SYR IV PRN ×2 (16:01→20:55)
--- NOTE | 2018-11-09 16:02 | PN ---
Subjective: The patient is lying in bed, nonverbal. Most of the history was obtained through medica l staff. The patient opens eyes spontaneously. Objective: Vital Signs: Temperature 98, pulse 78, respirations 16, blood pressure 105/61. Lungs: Basal crackles. Heart: S1, S2. Regular. Abdomen: Drainage tube noted. PEG tube also noted. Abdominal wound site is under surgical dressing . Extremities: contraction. Laboratory Data: WBC 22,000, hemoglobin 9.8, platelets are 225. Chemistry shows sodium 151, potassi um 4.2, chloride 121, bicarb 23, BUN 21, creatinine 1.5, glucose 161. Current antibiotic includes gentamicin and meropenem. Micro data is growing E coli ESBL and Pseudomo glenn aeruginosa from the PEG site. E coli is ESBL sensitive to meropenem with Pseudomonas resistant t o meropenem, sensitive to gentamicin. Assessment And Plan: Abdominal wall cellulitis, PEG site infected wound, leukocytosis. Continue bro ad-spectrum antibiotic consider adding vancomycin. Consider also having central line placement inste ad of peripheral line. We will follow the patient closely. NF/MODL Voice ID: [id number] Report ID: [id number]
--- NOTE | 2018-11-09 16:32 | PN ---
Date of Progress Note: 11/09/2018 Subjective: The patient is seen and examined. Chart reviewed and case discussed with RN. The patie nt tolerated surgery well yesterday, had a jejunostomy tube placed and PEG tube removed. Currently i n the ICU. Medications: List reviewed. Physical Examination: Vital Signs: Temperature 98.2, heart rate 80, blood pressure 112/60, respirations 12, O2 99% on room air. General: Awake, alert, oriented, in some mild distress, ill-appearing elderly male. CV: S1, S2. Regular rate and rhythm. Peripheral pulses present. Respiratory: Moving air well bilaterally. No wheezing. Gastrointestinal: Abdomen is soft, nontender, nondistended. Surgical incision site clean, dry, and intact. Positive bowel sounds. Extremities: No clubbing, cyanosis. The patient has lower extremity edema. Neuro: Severe contractures of the right upper and lower extremity. The patient is verbal. Speech i s comprehensible. Skin: J-tube in place. The patient does have erythema and some drainage around the previous PEG tub e site. Laboratory Data: Sodium 151, potassium 4.2, chloride 121, CO2 23, BUN 21, creatinine 1.5, glucose 16 1, calcium 7.8, phosphorus 3, magnesium 1.9. WBC 22.5, H and H 9.8 and 31.7, platelets 225, neutroph ils 90%. PEG tube cultures growing out E. coli and Pseudomonas. The E. coli is ESBL producing. Assessment And Plan: A 78-year-old male with: 1.Malfunction of PEG tube, status post removal and placement of jejunostomy tube. Appreciate Dr. Paul mixon's input. 2.PEG tube site infection with abdominal cellulitis secondary to extended-spectrum beta-lactamase Es cherichia coli and Pseudomonas. The patient currently on meropenem and gentamicin. ID on board. 3.Functional quadriplegia. 4.Diabetes mellitus type 2, non-insulin requiring with hyperglycemia. Continue sliding scale insuli n and monitor blood glucose levels. 5.Hypernatremia. We will switch to D5W. The patient was previously on D5 half NS. We will restart water flushes once the G-tube is functional. 6.History of cerebrovascular accident with residual deficit, right-sided weakness, and contractures. 7.Vascular dementia without behavioral disturbance. 8.Essential hypertension, stable, on home medications. 9.Chronic kidney disease, stage 3. Creatinine is around baseline. Continue to monitor and avoid NS AIDs. 10.Deep vein thrombosis prophylaxis. We will resume Lovenox 24 hours postprocedure. Plan: Step down from ICU if okay with Surgery. [place] [id number]. We will continue antibiotics. The patient currently afebrile. /AMY Voice ID: [id number] Report ID: [id number]
[2018-11-10] MEDS: Meropenem 500 MG in NA CHLORIDE 0.9% 100 ML IV SCH ×3 (00:17→17:04)
[2018-11-10] MEDS: D5W 1,000 ML IV SCH ×2 (00:20→17:05)
[2018-11-10] MEDS: MORPHINE 2 MG/ML SYR IV PRN ×2 (00:37→22:15)
[2018-11-10 05:36] LABS: Absolute Lymphocytes (CBC) 0.6 K/uL (0.7-4.9); Absolute Monocytes 0.9 K/uL (0.1-1.3); Basophils % 0.3 % (0-1.3); Hematocrit 31.6 % (39.6-49.0); Lymphocytes % 6.3 % (15.3-44.8); MPV 8.5 fL (7.6-11.3); Monocytes % 8.9 % (3.3-12.3); RBC Red Blood Cell Count 3.39 M/uL (4.33-5.43)
[2018-11-10] MEDS: PANTOPRAZOLE 40 MG INJ IVP SCH (08:39)
[2018-11-10] MEDS: Gentamicin Inj 140 MG in NA CHLORIDE 0.9% 100 ML IV SCH (12:00)
--- NOTE | 2018-11-10 12:38 | PN ---
Date of Progress Note: 11/10/2018 Patient is seen and examined. Chart reviewed and case discussed with RN. Patient is doing well. No acute events overnight. The patient denies any significant pain. His dressings have been changed. Medications: List reviewed. Physical Examination: Vital Signs: Temperature 98, heart rate 100, blood pressure 142/69, respirations 12, O2 of 100% on r oom air. General: Awake, alert, oriented, no acute distress, elderly male. CV: S1, S2. Sinus tachycardia. Peripheral pulses present. Respiratory: Moving air well bilaterally. Abdomen: Soft, nontender, nondistended. Positive bowel sounds. Incision site clean, dry, and intac t. J-tube in place. Extremities: No clubbing or cyanosis. Right lower extremity has edema. Neuro: Right upper and lower extremity contractures and weakness. Altered speech. Laboratory Data: Sodium 147, potassium 4, chloride 116, CO2 of 24, BUN 23, creatinine 1.65, glucose 152, lactate 1.3, calcium 7.8. WBC 9.6, H and H 10 and 31.6, platelets 192, neutrophils 83%. Blood cultures still pending. PEG tube cultures growing out E. coli and Pseudomonas. E. coli is ESBL prod ucing. Assessment And Plan: A 78-year-old male with: 1.Malfunction of percutaneous endoscopic gastrostomy tube, status post removal and placement of jeju nostomy tube. Dr. Soto is on board. 2.Percutaneous endoscopic gastrostomy tube site infection with abdominal wall cellulitis secondary t o extended-spectrum beta-lactamase Escherichia coli and Pseudomonas. Continue meropenem and gentamic in. Infectious Disease recommends adding vancomycin, however white count has improved. We will hold off for now. Await for blood cultures. 3.Functional quadriplegia. 4.Diabetes mellitus, type 2, aqj-yvjtsjo-xrxsgvgyr with hyperglycemia. We will continue sliding sca le insulin and monitor blood glucose levels. 5.Hypernatremia, improving. We will continue D5W and monitor sodium level. 6.History of cerebrovascular accident with residual deficit, right-sided weakness, and contractures, stable. 7.Vascular dementia without behavioral disturbance. 8.Essential hypertension, stable. Continue medications. 9.Chronic kidney disease stage 3. Creatinine is slightly above baseline. We will continue to monit or. 10.Deep venous thrombosis prophylaxis with Lovenox. Plan: Step down from ICU. Discharge planning. /AMY Voice ID: [id number] Report ID: [id number]
[2018-11-10] MEDS: ENOXAPARIN 30 MG/0.3 ML SQ SCH (17:05)
[2018-11-11] MEDS: Meropenem 500 MG in NA CHLORIDE 0.9% 100 ML IV SCH ×3 (02:27→16:11)
[2018-11-11] MEDS: MORPHINE 2 MG/ML SYR IV PRN ×2 (05:11→22:11)
[2018-11-11] MEDS: D5W 1,000 ML IV SCH ×3 (07:30→21:34)
[2018-11-11 08:10] LABS: Absolute Lymphocytes (CBC) 0.8 K/uL (0.7-4.9); Absolute Monocytes 1.5 K/uL (0.1-1.3); Absolute Neutrophil 12.3 K/uL (1.8-8.0); Basophils % 0.3 % (0-1.3); Eosinophils % 0.3 % (0-4.4); Hematocrit 27.7 % (39.6-49.0); Lymphocytes % 5.2 % (15.3-44.8); MPV 8.2 fL (7.6-11.3); Monocytes % 10.4 % (3.3-12.3); RBC Red Blood Cell Count 3.04 M/uL (4.33-5.43)
[2018-11-11 08:30] LABS: Albumin 1.4 g/dL (3.4-5.0); Bilirubin Total 0.2 mg/dL (0.2-1.0); Potassium 4.3 mmol/L (3.5-5.1); Protein, Total 6.6 g/dL (6.4-8.2)
[2018-11-11] MEDS: PANTOPRAZOLE 40 MG INJ IVP SCH (08:45)
--- NOTE | 2018-11-11 15:46 | PN ---
Date of Progress Note: 11/11/2018 Subjective: The patient is seen and examined. Chart reviewed, and case discussed with RN. The madalyn ent denies any significant pain. Stepped down from the ICU yesterday. Overall doing well. Schedule d for surgery in a.m. Medications: List reviewed. Physical Examination: Vital Signs: T-max 101.3, T-current is 99.5, heart rate 114, blood pressure 143/84, respirations 18, O2 of 94% on room air. General: Awake, alert, oriented x3. Not in any acute distress. An elderly male, ill-appearing. CV: S1, S2. Sinus tachycardia. Peripheral pulses present. Respiratory: Diminished breath sounds at the bases. No wheezing. Gastrointestinal: Abdomen is soft. Mild tenderness to palpation around the incision site. Bowel so unds positive. Extremities: No clubbing or cyanosis. Peripheral edema is present, right greater than left. Neuro: The patient has abnormal speech as well as contractures in the right and weakness. Laboratory Data: WBC 14.7, H and H 9.2 and 27.7, platelets 221. Sodium 143, potassium 4.3, chloride 111, CO2 of 24, BUN 23, creatinine 1.79, glucose 167, lactate 1.5, calcium 8, albumin 1.4. Blood cu ltures, no growth to date. PEG tube cultures growing out ESBL E coli and Pseudomonas aeruginosa. Assessment: A 78-year-old male with: 1.Malfunction of PEG tube, status post jejunostomy tube placement. PEG tube is still in place and a dhered to the stomach. We will need surgery for removal with partial gastrectomy. Appreciate Dr. Paul mixon's input. 2.PEG tube site infection with abdominal wall cellulitis secondary to extended-spectrum beta-lactama se Escherichia coli and Pseudomonas. We will continue meropenem and gentamicin. We will add vancomy mona as well. The patient is febrile, temperature 101.3. Blood culture, negative to date. 3.Functional quadriplegia. 4.Diabetes mellitus type 2, non-insulin requiring, with hyperglycemia. We will continue sliding sca le insulin and Accu-Cheks. 5.Severe protein-calorie malnutrition. Albumin is less than 2. 6.Hypernatremia, corrected. 7.Ravjf-go-ukuttkg kidney disease stage 3. We will have to monitor closely. The patient is on gent amicin. We will monitor trough. 8.Essential hypertension, stable. 9.Vascular dementia without behavioral disturbance. 10.History of cerebrovascular accident with right-sided weakness and contractures. Plan: Anticipate surgery in a.m. The patient is moderate risk for this procedure. We will adjust I V antibiotics. /AMY Voice ID: [id number] Report ID: [id number]
[2018-11-11] MEDS: ENOXAPARIN 30 MG/0.3 ML SQ SCH (16:11)
[2018-11-12] MEDS: Meropenem 500 MG in NA CHLORIDE 0.9% 100 ML IV SCH ×3 (00:21→17:35)
[2018-11-12 06:29] LABS: Absolute Lymphocytes (CBC) 0.5 K/uL (0.7-4.9); Absolute Monocytes 1.5 K/uL (0.1-1.3); Absolute Neutrophil 9.4 K/uL (1.8-8.0); Basophils % 0.1 % (0-1.3); Eosinophils % 0.1 % (0-4.4); Hematocrit 28.7 % (39.6-49.0); Lymphocytes % 4.4 % (15.3-44.8); MPV 7.9 fL (7.6-11.3); RBC Red Blood Cell Count 3.18 M/uL (4.33-5.43)
[2018-11-12] MEDS: MORPHINE 2 MG/ML SYR IV PRN ×3 (06:31→23:10)
[2018-11-12 06:44] VITALS: BMI 21.0
[2018-11-12 06:47] LABS: Albumin 1.2 g/dL (3.4-5.0); Bilirubin Total 0.3 mg/dL (0.2-1.0); Potassium 4.1 mmol/L (3.5-5.1); Protein, Total 6.2 g/dL (6.4-8.2)
[2018-11-12] MEDS ORDERED: NS 0.9% VIAL 0 ML ONE ×2 (08:41→08:42)
[2018-11-12] MEDS ORDERED: LIDOCAINE 1% MPF 30 ML VIAL ONE (08:41)
[2018-11-12] MEDS: PANTOPRAZOLE 40 MG INJ IVP SCH (08:55)
[2018-11-12] MEDS ORDERED: NA CHLORIDE 0.9% 1,000 ML ONE (09:08)
[2018-11-12] MEDS ORDERED: PROPOFOL 200 MG/20 ML VIAL IV ONE (09:20)
--- NOTE | 2018-11-12 09:20 | P.PN ---
Subjective Date of Service: 11/10/18 Chief Complaint: PEG tube malfunction, gastritis, coffee-ground leakage, placement J tube Subjective: No new changes Review of Systems is unable to be obtained Physical Examination - Vital Signs Temperature: 98.1 F Blood Pressure: 140/72 Pulse: 112 Respirations: 26 Pulse Ox (%): 97 - Physical Exam General: Alert, In no apparent distress, Demented HEENT: PERRLA Gastrointestinal: Hypoactive, Non-distended, Other (midline incision clean with fascia intact.) Integumentary: No cyanosis Neurological: Dementia Assessment And Plan - Plan ID requesting central line for abx since PICC line not possible. Central line consent will be requested with BAR including but not limited to infection bleeding, damage to adjacent structures, DVT, PE, pneumothorax, PR even . It will be under better control in OR with fluoroscopy guiddance since pt its all contracted and unable to fully cooperated Possible trial of J tube feeding monday wet to dry midline decubitus ulcer protection
[2018-11-12] MEDS ORDERED: LIDOCAINE 2% MPF 5 ML VIAL ONE (09:21)
[2018-11-12] MEDS ORDERED: FENTANYL CITR 100 MCG/2 ML ONE (09:21)
[2018-11-12] MEDS ORDERED: HEPARIN 500 UNIT/5 ML SYR IV ONE (09:27)
[2018-11-12] MEDS ORDERED: Phenylephrine HCl 10 MG/ML 1 ML VIAL ONE (09:49)
[2018-11-12] MEDS ORDERED: NA CHLORIDE 0.9% 1,000 ML IV ONE (09:50)
--- NOTE | 2018-11-12 10:13 | P.BOP ---
Preoperative diagnosis: functional quadriplegia, severe contractures, muscle wasting, PEG malfuctio Postoperative diagnosis: DM, GE reflux, renal insufficiencyprotein-calorie malnourishment Primary procedure: Exploratory laparotomy, extensive Lysis of adhesions Secondary procedure: open jejunostomy tube placement, Estimated blood loss: <100cc Complications: None Drain(s): Other Transferred to: Recovery Room Condition: Good
--- NOTE | 2018-11-12 10:16 | P.BOP ---
Preoperative diagnosis: functional quadriplegia, severe contractures, muscle wasting, PEG malfuctio Postoperative diagnosis: DM, GE reflux, renal insufficiencyprotein-calorie malnourishment Primary procedure: 1. Central line placement Secondary procedure: 2. interpretation of fluoroscopy Other procedure(s): 3. right neck ultrasound line placement Estimated blood loss: <100cc Findings: as above Anesthesia: General Complications: None Drain(s): Other Transferred to: Recovery Room Condition: Good
--- NOTE | 2018-11-12 10:25 | RAD REPORT ---
EXAM DESCRIPTION: RAD - Fluoroscopy <1 Hour - 11/12/2018 10:12 am FINDINGS: There were 4 portable fluoroscopic images obtained intraoperatively during fluoroscopic as sisted placement of a central line. No suspicious or unexpected findings. Fluoro time was 0.2 minutes.
--- NOTE | 2018-11-12 10:40 | RAD REPORT ---
EXAM DESCRIPTION: RAD - Chest Single View - 11/12/2018 10:34 am CLINICAL HISTORY: S/P CENTRAL LINE PLACEMENT Chest pain. COMPARISON: Chest Single View dated 11/07/2018; Chest Single View dated 11/04/2018; Chest Single View dated 07/11/2018; Abdomen 1 View (KUB) dated 01/29/2017 FINDINGS: Portable technique limits examination quality. Right-sided central venous catheter is in place with tip in the SVC. No postprocedure pneumothorax is evident.
[2018-11-12] MEDS: Gentamicin Inj 140 MG in NA CHLORIDE 0.9% 100 ML IV SCH (11:25)
--- NOTE | 2018-11-12 14:29 | PN ---
Date of Progress Note: 11/12/2018 Subjective: The patient seen and examined. Chart reviewed and case discussed with RN. The patient is scheduled for central line placement today under anesthesia due to severe contractures and technic al difficulty of the procedure. Medications: List reviewed. Physical Examination: Vital Signs: Temperature 98.1, heart rate 112, blood pressure 140/72, respirations 26, O2 97% on cristhian m air. General: Asleep but arousable, not in acute distress, ill-appearing male. CV: S1, S2. Sinus tachycardia. Respiratory: Diminished breath sounds at the bases. Gastrointestinal: Abdomen is soft, nontender, nondistended. Positive bowel sounds. Extremities: No clubbing, cyanosis. The patient has edema right worse than left of the lower extrem ities. Skin: The patient has PEG tube in place. Jejunostomy tube in place. Some abdominal wall cellulitis . Neurologic: Right-sided weakness with severe contractures. Laboratory Data: Sodium 142, potassium 4.1, chloride 110, CO2 23, BUN 23, creatinine 1.65, glucose 1 80, calcium 8, albumin 1.2. WBC 11.4, H and H 9.3 and 28.7, platelets 201, neutrophils 82%. Blood c ultures, no growth to date. Bacterial cultures growing out ESBL Escherichia coli and Pseudomonas. Assessment: A 78-year-old male with: 1.Malfunction of PEG tube, status post jejunostomy tube placement. PEG tube still in place due to a dherence to the stomach. He will need major surgery for removal with partial gastrectomy, currently going down for central line placement, so he can be started on TPN. Dr. Soto is on board. 2.PEG tube site infection with abdominal wall cellulitis, secondary to ESBL Escherichia coli and Pse udomonas, currently on meropenem and gentamicin. White blood cell count is trending down; however, t he patient is still tachycardic and tachypneic. We will bolus with normal saline. He has been afebr ile for 24 hours. Blood cultures are negative to date. I will avoid vancomycin with concurrent gent amicin for now. ID on board. 3.Functional quadriplegia. 4.Diabetes mellitus type 2, zoh-pnlvnya-rovudmcbc with hyperglycemia. Continue sliding scale insuli n and monitor blood glucose levels. 5.Severe protein-calorie malnutrition, albumin is less than 2. The patient needs to be started on T PN once central line is in place. 6.Hypernatremia, corrected. We will continue to monitor sodium levels. 7.Acute on chronic kidney disease stage 3. Monitor closely as the patient is on gentamicin with kno wn nephrotoxicity. Unfortunately, due to his culture results, he needs to be on gentamicin. Avoid N SAIDs. 8.Essential hypertension, stable. 9.Vascular dementia without behavioral disturbance. 10.History of cerebrovascular accident with right-sided weakness and contractures. 11.Systemic inflammatory response syndrome, developing sepsis. The patient had temperature of 101.3 . White count was elevated at 14,000, tachypneic and tachycardic. Lactate has been negative for the past 2 days consecutively. We will bolus with normal saline. The patient probably has insensible l osses. Plan: Anticipate central line placement and start TPN. /AMY Voice ID: [id number] Report ID: [id number]
[2018-11-12] MEDS: GLUCERNA 1.5 CAL 1,000 ML BOT FT SCH ×2 (16:00→22:00)
[2018-11-12] MEDS: ENOXAPARIN 30 MG/0.3 ML SQ SCH (17:00)
[2018-11-12] MEDS: AA 5%/D20W/ELECTROLYTES-TPN 2,000 ML, Lipids 20% 250 ML with MULTIVITAMINS INJ 10 ML IV SCH ×3 (17:35)
[2018-11-12 17:57] LABS: Phosphorus 2.6 mg/dL (2.5-4.9)
--- NOTE | 2018-11-12 20:15 | OP ---
Date of Procedure: 11/12/2018 Surgeon: Zach Soto MD Preoperative Diagnoses: Functional quadriplegic, severe body contractures, muscle wasting, PEG malfu nction, diabetes mellitus, gastroesophageal reflux, renal insufficiency with calorie malnourishment, poor peripheral access. Postoperative Diagnoses: Functional quadriplegic, severe body contractures, muscle wasting, PEG malf unction, diabetes mellitus, gastroesophageal reflux, renal insufficiency with calorie malnourishment, poor peripheral access. Procedure: 1.Center line placement. 2.Interpretation of fluoroscopy. 3.Right neck ultrasound for line placement. Anesthesia: General plus local. Indication: This is a case of a 78-year-old patient with dementia with multiple medical problems as described above. The patient needs long-term IV access. They cannot get to the peripheral access, t hey tried a PICC line, they could not. So they asked me to put a central line. The benefits, altern atives, and risks were explained to the family which include, but not limited to infection, bleeding, damage to adjacent structures, anesthesia complication, PE, DVT, pericarditis, breaking of a cathete r, pneumothorax, hemothorax, [place], even . They also understands this may not relieve any symptoms . Description Of Procedure: The patient was brought to the operating room, placed in supine position. Anesthesia was done without complication. This patient has many contractures with extremities in mu ltiple locations. We were able to clear the right neck region. Prepped and draped the area in the u sual sterile fashion. A time-out was called. Ultrasound of the area was done to localize the financial services internship al jugular vein, seems to be patent. We used ultrasound guidance to put in an 18-gauge needle in the right internal jugular vein on the first attempt. A guidewire was passed through, got into the supe rior vena cava using fluoroscopy guidance and then a central line was placed using surgical technique using fluoroscopy guidance. A line was secured in place with 3-0 nylon, excellent backflow and infl ow. The line was flushed with heparinized solution and covered with sterile dressings. The patient tolerated the procedure well. The patient was sent to recovery room in stable condition. A chest x- ray will be ordered stat. HM/MODL Voice ID: [id number] Report ID: [id number]
[2018-11-12] MEDS: CARVEDILOL 25 MG TAB FT SCH (21:00)
[2018-11-12] MEDS: ATORVASTATIN 80 MG TAB FT SCH (21:00)
--- NOTE | 2018-11-12 21:24 | PN ---
Subjective: The patient is lying in bed. No new acute event. Chart reviewed. Objective: Vital Signs: Temperature 98, pulse 100, respirations 18, and blood pressure 137/79. Lungs: Basal crackles. Heart: S1 and S2, regular. Abdomen: Soft. Bowel sounds present. Abdominal wall cellulitis noted. Laboratory Data: WBC 11.4, hemoglobin 9.3, and platelets are 201. Medications: Include gentamicin and meropenem. Assessment And Plan: Abdominal wall cellulitis and PEG tube site infection. Continue antibiotic and supportive care. Nutritional evaluation and feeding to be monitored. We will follow the patient as needed. Continue current antibiotics, total course 2 weeks. NF/MODL Voice ID: [id number] Report ID: [id number]
[2018-11-13] MEDS: Meropenem 500 MG in NA CHLORIDE 0.9% 100 ML IV SCH ×3 (00:38→18:10)
[2018-11-13] MEDS: GLUCERNA 1.5 CAL 1,000 ML BOT FT SCH ×4 (04:35→21:24)
[2018-11-13 05:12] LABS: Absolute Lymphocytes (CBC) 0.5 K/uL (0.7-4.9); Absolute Monocytes 1.3 K/uL (0.1-1.3); Absolute Neutrophil 6.6 K/uL (1.8-8.0); Basophils % 0.1 % (0-1.3); Eosinophils % 0.3 % (0-4.4); Lymphocytes % 6.3 % (15.3-44.8); MPV 8.4 fL (7.6-11.3); RBC Red Blood Cell Count 2.36 M/uL (4.33-5.43)
[2018-11-13 05:30] LABS: Bilirubin Total 0.2 mg/dL (0.2-1.0); Magnesium 1.9 mg/dL (1.8-2.4); Potassium 3.8 mmol/L (3.5-5.1); Protein, Total 5.2 g/dL (6.4-8.2)
[2018-11-13] MEDS ORDERED: KCL 20 MEQ/100 mL IVPB 20 MEQ/100 ML BAG IV SCH (06:00)
[2018-11-13 06:15] LABS: Hematocrit 21.9 % (39.6-49.0)
[2018-11-13] MEDS: MORPHINE 2 MG/ML SYR IV PRN (06:45)
--- NOTE | 2018-11-13 08:34 | CON ---
Date of Consultation: 11/06/2018 Reason For Consultation: Upper GI bleed with coffee-grounds noted leaking via the PEG stoma site. History Of Present Illness: The patient is a 78-year-old male with history of diabe chris, hypertension, stroke with right-sided hemiparesis since 2013, unable to communicate well, chroni c renal disease, contractures in the right lower extremity. History of UTI, sepsis, malnutrition wit h PEG tube placement, depression, gastric reflux disease, hyperlipidemia. The patient presented to [facility] due to coffee-ground leakage at the PEG tube stoma site with history of possible gastriti s. PEG tube apparently has some problems with functionality but appears to be cleared wit h Coca Cola and pancreatic enzymes here in the hospital upon GI consultation. The patient unable to give history due to his dementia as well as stroke or it could be stroke-induced dementia as well sin ce he has had large stroke in the past. Past Medical History: Significant for diabetes, hypertension, stroke, chronic renal disease, contrac tures in right lower extremity, history of UTI, sepsis, PEG tube placement due to protein calorie mal nutrition, depression, gastric reflux disease, hyperlipidemia. Medications: Include Norvasc, aspirin, Lipitor, Coreg, Plavix, apresoline, Ultram, Tylenol, albutero l, Zyrtec, Flexeril, nystatin, Paxil, Chloraseptic, Catapres, levophed, Milk of magnesia, Theravite, nasal spray, Glucerna, Protonix. Allergies: STADOL AND VERSED. Physical Examination: Vital Signs: The patient is afebrile. Vital signs stable. 5 feet, 10 inch. 150 pounds. BMI 22 kg /m2, . Temperature 97.1 degrees Fahrenheit, pulse 95, respirations 18-24, blood pressure 1 68/74, O2 saturation 95%. General: He is debilitated patient lying in bed, in no acute distress. HEENT: Normocephalic, atraumatic. Pupils are equal, round, and reactive to light. . Neck: Supple. No masses. Respirations: Clear somewhat diminished. Cardiac: Regular rate and rhythm. Abdominal: Positive bowel sounds. Soft, nontender, nondistended. No hepatosplenomegaly. PEG tube in place. . No coffee grounds seen though noted earlier in chart and on admission to the hospital note. Extremities: Contractures in the right lower extremity as well as somewhat in the left lower extremi ty and in his upper extremity and his hands it appears. Partial contractures at least. Neuro: He is alert but not oriented. Unable to communicate with dementia. Laboratory Data: White count of 10.1, hemoglobin 8.6, hematocrit 26.9, MCV of 92, platelet count 258 , polys 80%, lymphocytes 8%, monocytes 10%. PT 11.8, INR 1.0. Chemistry, sodium 140, potassium 4.1, chloride 115, bicarb 26, BUN 40, creatinine of 1.8, glucose 186, calcium 8.1, phosphorus 2.8, total bilirubin 0.2, AST 43, ALT 42, alkaline phosphatase 120, total protein 6.1, albumin 1.5, globulin 4.6 . UA showed 3+ total protein, otherwise negative. CT abdomen and pelvis on November 04, revealed PEG w ell positioned. No gross gastric abnormality seen. Large amount of stool throughout the colon from cecum and sigmoid colon stool volume dilating rectum as well. There was some fluid retent ion and subcutaneous fat tissues noted. Impression: 1.Upper gastrointestinal bleed with coffee-ground coffee seen at the PEG tube stoma possibly via the PEG. Need to assess with EGD. 2.Possible PEG malfunction, improved, status post Coca Cola and pancreatic enzyme in PEG tube. 3.Protein calorie malnutrition with albumin down to 1.1. 4.EGD, evaluation for coffee grounds via PEG tube. 5.Continue coke, soda or pancreatic enzymes or other agents for PEG tube to clear. PEG tube continu e to be functional. 6.Consider possible placement of PEG tube is indicated. 7.PPI therapy. 8.Serial H and H, and transfuse p.r.n. SHLOMO/AMY Voice ID: [id number] Report ID: [id number]
[2018-11-13] MEDS: PARoxetine HCl 10 MG TAB FT SCH (10:36)
[2018-11-13] MEDS: AMLODIPINE 5 MG TAB FT SCH (10:36)
[2018-11-13] MEDS: PANTOPRAZOLE 40 MG INJ IVP SCH (10:36)
[2018-11-13] MEDS ORDERED: NA CHLORIDE 0.9% 250 ML ONE ×2 (12:04→21:55)
[2018-11-13] MEDS ORDERED: GLUCAGON 1 MG/VIAL IM PRN (13:28)
[2018-11-13] MEDS ORDERED: D50W 25 GM/50 ML SYRINGE IV PRN (13:28)
--- NOTE | 2018-11-13 14:11 | P.PN ---
Subjective Date of Service: 11/13/18 Chief Complaint: PEG tube malfunction, gastritis, coffee-ground leakage, placement J tube Patient seen and examined at bedside. No family at bedside. Chart reviewed and case discussed with nursing staff. Little more alert than yesterday and I am unsure of his baseline. Patient is a intermediate patient, no family at bedside today. No acute events noted overnight Physical Examination - Vital Signs Temperature: 98.2 F Blood Pressure: 176/94 Pulse: 123 Respirations: 28 Pulse Ox (%): 98 - Physical Exam General: Demented, Other (Ill appearing ) HEENT: Atraumatic, PERRLA, EOMI Neck: Supple, JVD not distended Respiratory: Clear to auscultation bilaterally, Normal air movement Cardiovascular: Regular rate/rhythm, Normal S1 S2 Gastrointestinal: Normal bowel sounds, No tenderness Musculoskeletal: Contractures Integumentary: Other (JTube in place, PEG in place. cellulitis on skin around PEG) Assessment And Plan - Current Problems (Diagnosis) (1) Functional quadriplegia Current Visit: No Status: Acute (2) Malfunction of percutaneous endoscopic gastrostomy (PEG) tube Onset Date: 01/30/17 Current Visit: No Status: Acute (3) Diabetes mellitus Onset Date: 01/11/17 Current Visit: No Status: Chronic (4) GERD (gastroesophageal reflux disease) Onset Date: 01/11/17 Current Visit: No Status: Chronic Qualifiers: (5) History of CVA with residual deficit Onset Date: 01/11/17 Current Visit: No Status: Chronic (6) Hypertension Onset Date: 01/11/17 Current Visit: No Status: Chronic Qualifiers: (7) Renal insufficiency Onset Date: 01/11/17 Current Visit: No Status: Chronic (8) Vascular dementia Onset Date: 10/15/14 Current Visit: No Status: Chronic (9) Cellulitis Current Visit: Yes Status: Acute Qualifiers: Site of cellulitis: trunk Site of cellulitis of trunk: abdominal wall Qualified Code(s): L03.311 - Cellulitis of abdominal wall - Plan Malfunction of percutaneous endoscopic gastrostomy (PEG) tube status post jejunostomy tube placement. PEG tube still in place due to adherence to the stomach. He will need major surgery for removal with partial gastrectomy He does have a central line placed, TPN running. Started on J tube feeds, per general surgery. We will wean TPN if he is able to tolerated TPN. PEG tube site infection with Abdominal wall cellulitis secondary to ESBL Escherichia coli and Pseudomonas, currently on meropenem and gentamicin. White blood cell count is trending down ID on board. Acute on chronic Kidney disease, stage 3 Creatinine improving. Continue IV fluid Continue to avoid nephrotoxic medications Severe protein-calorie malnutrition, albumin is less than 2 Systemic inflammatory response syndrome, developing sepsis. Afebrile overnight, White count improving, tachypneic and tachycardic. Lactate has been negative for the past 2 days consecutively. Continue normal saline. The patient probably has insensible losses. Diabetes mellitus Accu-Cheks Mild sliding scale insulin GERD (gastroesophageal reflux disease) Continue Protonix as above Hypertension Blood pressure stable. Will continue to monitor and adjust medications as needed Vascular dementia History of CVA with residual deficit Functional quadriplegia Hypernatremia Now resolved Continue to monitor DVT prophylaxis: Hold GI prophylaxis: Protonix as above Diet: Jtube feeds, Disposition: Conitnue to wean off TPN, continue Jtube feeds. IF tolerating, will consider discharging back to his intermediate. Discharge Plan: Jail
[2018-11-13] MEDS ORDERED: FUROSEMIDE 20 MG/ 2ML VIAL IV ONE (16:00)
[2018-11-13] MEDS: INSULIN -REGULAR HUMAN 50 UNIT/0.5 ML ML SQ SCH ×2 (16:22→21:00)
[2018-11-13] MEDS: ENOXAPARIN 30 MG/0.3 ML SQ SCH (16:23)
[2018-11-13] MEDS: AA 5%/D20W/ELECTROLYTES-TPN 2,000 ML, Lipids 20% 250 ML with MULTIVITAMINS INJ 10 ML IV SCH ×3 (17:00)
[2018-11-13] MEDS: ATORVASTATIN 80 MG TAB FT SCH (21:23)
[2018-11-13] MEDS: CARVEDILOL 25 MG TAB FT SCH (21:23)
[2018-11-14] MEDS: Meropenem 500 MG in NA CHLORIDE 0.9% 100 ML IV SCH ×3 (00:08→16:56)
[2018-11-14] MEDS ORDERED: FUROSEMIDE 20 MG/ 2ML VIAL IV ONE (01:05)
[2018-11-14] MEDS ORDERED: MORPHINE 2 MG/ML SYR IV PRN (03:00)
[2018-11-14] MEDS: GLUCERNA 1.5 CAL 1,000 ML BOT FT SCH (03:58)
[2018-11-14 04:32] LABS: Absolute Lymphocytes (CBC) 0.7 K/uL (0.7-4.9); Absolute Monocytes 1.5 K/uL (0.1-1.3); Absolute Neutrophil 10.6 K/uL (1.8-8.0); Basophils % 0.2 % (0-1.3); Eosinophils % 1.2 % (0-4.4); Hematocrit 35.1 % (39.6-49.0); Lymphocytes % 5.4 % (15.3-44.8); MPV 8.4 fL (7.6-11.3); Monocytes % 11.7 % (3.3-12.3); RBC Red Blood Cell Count 3.93 M/uL (4.33-5.43)
[2018-11-14 04:44] LABS: Albumin 1.2 g/dL (3.4-5.0); Bilirubin Total 0.5 mg/dL (0.2-1.0); Potassium 3.8 mmol/L (3.5-5.1); Protein, Total 6.1 g/dL (6.4-8.2)
[2018-11-14] MEDS: INSULIN -REGULAR HUMAN 50 UNIT/0.5 ML ML SQ SCH ×4 (07:30→22:28)
[2018-11-14] MEDS: PANTOPRAZOLE 40 MG INJ IVP SCH (08:38)
[2018-11-14] MEDS: PARoxetine HCl 10 MG TAB FT SCH (08:38)
[2018-11-14] MEDS: AMLODIPINE 5 MG TAB FT SCH (08:38)
[2018-11-14] MEDS ORDERED: KCL 20 MEQ/100 mL IVPB 20 MEQ/100 ML BAG IV SCH (09:00)
[2018-11-14] MEDS ORDERED: POTASSIUM CL SA 10 MEQ TAB PO ONE (09:00)
[2018-11-14] MEDS: GLUCERNA 1.5 CAL 1,000 ML BOT RTH SCH (10:29)
--- NOTE | 2018-11-14 10:56 | P.PN ---
Subjective Date of Service: 11/14/18 Chief Complaint: PEG tube malfunction, gastritis, coffee-ground leakage, placement J tube Subjective: No new changes Patient seen and examined at bedside. No family at bedside. Chart reviewed and case discussed with nursing staff. Patient is a group home patient, no family at bedside today. No acute events noted overnight He continues to get feeds via J tube and seems to be tolerating it. No diarrhea overnight. TPN now weaned off. Review of Systems 10-point ROS is otherwise unremarkable Physical Examination - Vital Signs Temperature: 98.6 F Blood Pressure: 163/80 Pulse: 116 Respirations: 20 Pulse Ox (%): 99 - Physical Exam General: In no apparent distress, Demented HEENT: Atraumatic, PERRLA, EOMI Respiratory: Clear to auscultation bilaterally, Normal air movement Cardiovascular: Normal S1 S2, Irregular heart rate/rhythm (Tachycardic) Gastrointestinal: Other (J-tube replaced. PEG tube also in place on LIWS, with surrounding erythema, improved.) Musculoskeletal: No tenderness, Contractures Integumentary: No rashes Assessment And Plan - Current Problems (Diagnosis) (1) Functional quadriplegia Current Visit: No Status: Acute (2) Malfunction of percutaneous endoscopic gastrostomy (PEG) tube Onset Date: 01/30/17 Current Visit: No Status: Acute (3) Diabetes mellitus Onset Date: 01/11/17 Current Visit: No Status: Chronic (4) GERD (gastroesophageal reflux disease) Onset Date: 01/11/17 Current Visit: No Status: Chronic Qualifiers: (5) History of CVA with residual deficit Onset Date: 01/11/17 Current Visit: No Status: Chronic (6) Hypertension Onset Date: 01/11/17 Current Visit: No Status: Chronic Qualifiers: (7) Renal insufficiency Onset Date: 01/11/17 Current Visit: No Status: Chronic (8) Vascular dementia Onset Date: 10/15/14 Current Visit: No Status: Chronic (9) Cellulitis Current Visit: Yes Status: Acute Qualifiers: Site of cellulitis: trunk Site of cellulitis of trunk: abdominal wall Qualified Code(s): L03.311 - Cellulitis of abdominal wall - Plan Malfunction of percutaneous endoscopic gastrostomy (PEG) tube status post jejunostomy tube placement. PEG tube still in place due to adherence to the stomach. He will need major surgery for removal with partial gastrectomy He does have a central line placed, TPN now off. Continue J tube feeds, changed to continuous feeds as it is a trach tube. Dietitian consulted, on board. Recommendations appreciated PEG tube site infection with Abdominal wall cellulitis secondary to ESBL Escherichia coli and Pseudomonas, currently on meropenem and gentamicin. White blood cell count is trending down ID on board. Acute on chronic Kidney disease, stage 3 Creatinine improving, seems to be at baseline. Continue to avoid nephrotoxic medications We Will continue to monitor Severe protein-calorie malnutrition, albumin is less than 2 Systemic inflammatory response syndrome, developing sepsis. Afebrile overnight, White count improving, tachycardic. Lactate has been negative for 2 days consecutively. The patient probably has insensible losses. Diabetes mellitus Accu-Cheks Mild sliding scale insulin GERD (gastroesophageal reflux disease) Continue Protonix Hypertension Blood pressure stable. Will continue to monitor and adjust medications as needed Vascular dementia History of CVA with residual deficit Functional quadriplegia Hypernatremia Now resolved Continue to monitor DVT prophylaxis: Hold GI prophylaxis: Protonix as above Diet: Jtube feeds, continuous Disposition: Continue Jtube feeds. If tolerating, will consider discharging back to his group home, likely in the next 24-48 hr. Discharge Plan: [facility]
[2018-11-14] MEDS: Gentamicin Inj 140 MG in NA CHLORIDE 0.9% 100 ML IV SCH (12:00)
[2018-11-14] MEDS: ENOXAPARIN 30 MG/0.3 ML SQ SCH (16:56)
[2018-11-14] MEDS: ATORVASTATIN 80 MG TAB FT SCH (22:27)
[2018-11-14] MEDS: CARVEDILOL 25 MG TAB FT SCH (22:28)
[2018-11-15] MEDS: Meropenem 500 MG in NA CHLORIDE 0.9% 100 ML IV SCH ×3 (01:24→17:03)
[2018-11-15 05:23] LABS: Potassium 3.7 mmol/L (3.5-5.1)
[2018-11-15] MEDS ORDERED: KCL 20 MEQ/100 mL IVPB 20 MEQ/100 ML BAG IV SCH (06:00)
[2018-11-15] MEDS: INSULIN -REGULAR HUMAN 50 UNIT/0.5 ML ML SQ SCH ×4 (07:30→21:29)
[2018-11-15] MEDS: AMLODIPINE 5 MG TAB FT SCH (09:00)
[2018-11-15] MEDS: PANTOPRAZOLE 40 MG INJ IVP SCH (09:00)
[2018-11-15] MEDS: PARoxetine HCl 10 MG TAB FT SCH (09:00)
[2018-11-15 12:11] LABS: Absolute Lymphocytes (CBC) 0.4 K/uL (0.7-4.9); Absolute Monocytes 1.1 K/uL (0.1-1.3); Absolute Neutrophil 10.8 K/uL (1.8-8.0); Basophils % 0.1 % (0-1.3); Eosinophils % 0.5 % (0-4.4); Hematocrit 32.7 % (39.6-49.0); Lymphocytes % 3.1 % (15.3-44.8); MPV 8.8 fL (7.6-11.3); Monocytes % 9.3 % (3.3-12.3); RBC Red Blood Cell Count 3.69 M/uL (4.33-5.43)
[2018-11-15 12:13] LABS: Bilirubin Total 0.3 mg/dL (0.2-1.0); Potassium 3.9 mmol/L (3.5-5.1); Protein, Total 5.7 g/dL (6.4-8.2)
[2018-11-15] MEDS: MORPHINE 2 MG/ML SYR IV PRN (12:29)
[2018-11-15 12:39] LABS: Blood Morphology Comment NOT SEEN (NOT SEEN); Platelet Estimate ADEQ; Urine White Blood Cell Casts OK
[2018-11-15] MEDS: ENOXAPARIN 30 MG/0.3 ML SQ SCH (17:07)
--- NOTE | 2018-11-15 17:19 | P.PN ---
Subjective Date of Service: 11/15/18 Chief Complaint: PEG tube malfunction, gastritis, coffee-ground leakage, placement J tube Subjective: No new changes Patient seen and examined at bedside. No family at bedside. Chart reviewed and case discussed with nursing staff. Patient is a long term patient, no family at bedside today. Social work did call sister, next-of-kin. Sister cannot come in to discuss but I will call her tomorrow to discuss further. Overnight, he did have increased output from PEG tube that is on suction. He also seemed to have leakage around the PEG tube site. He seems to be tolerating G-tube feeds. No diarrhea overnight. TPN now weaned off. Review of Systems 10-point ROS is otherwise unremarkable Physical Examination - Vital Signs Temperature: 98.6 F Blood Pressure: 127/62 Pulse: 108 Respirations: 26 Pulse Ox (%): 100 - Physical Exam General: In no apparent distress, Demented Cardiovascular: Irregular heart rate/rhythm (Tachycardic) Gastrointestinal: Hypoactive, Other (J-tube in place, bandage clean, dry and intact. PEG tube site without any active leakage at the time of my exam., Wound located on midline of PEG tube, no drainage from the wound noted at this time. PEG tube with continued output on to intermittent wall suction.) Integumentary: Skin breakdown, Skin lesion Assessment And Plan - Current Problems (Diagnosis) (1) Functional quadriplegia Current Visit: No Status: Acute (2) Malfunction of percutaneous endoscopic gastrostomy (PEG) tube Onset Date: 01/30/17 Current Visit: No Status: Acute (3) Diabetes mellitus Onset Date: 01/11/17 Current Visit: No Status: Chronic (4) GERD (gastroesophageal reflux disease) Onset Date: 01/11/17 Current Visit: No Status: Chronic Qualifiers: (5) History of CVA with residual deficit Onset Date: 01/11/17 Current Visit: No Status: Chronic (6) Hypertension Onset Date: 01/11/17 Current Visit: No Status: Chronic Qualifiers: (7) Renal insufficiency Onset Date: 01/11/17 Current Visit: No Status: Chronic (8) Vascular dementia Onset Date: 10/15/14 Current Visit: No Status: Chronic (9) Cellulitis Current Visit: Yes Status: Acute Qualifiers: Site of cellulitis: trunk Site of cellulitis of trunk: abdominal wall Qualified Code(s): L03.311 - Cellulitis of abdominal wall - Plan Malfunction of percutaneous endoscopic gastrostomy (PEG) tube status post jejunostomy tube placement. PEG tube still in place due to adherence to the stomach. He will need major surgery for removal with partial gastrectomy. Unsure if patient is a good surgical candidate, the general surgery on board. Continue PEG tube suction on LIWS He does have a central line placed, TPN now off. Continue continuous J tube feeds. Dietitian consulted, on board. Recommendations appreciated PEG tube site infection with Abdominal wall cellulitis and wound secondary to ESBL Escherichia coli and Pseudomonas, currently on meropenem and gentamicin. White blood cell count is stable ID on board. We will confirm with infectious disease about duration and route of antibiotics. Acute on chronic Kidney disease, stage 3 Creatinine improving, seems to be at baseline. Continue to avoid nephrotoxic medications We Will continue to monitor Severe protein-calorie malnutrition, albumin is less than 2 Systemic inflammatory response syndrome, developing sepsis. Afebrile overnight, White count improving, tachycardic. Lactate has been negative for 2 days consecutively. The patient probably has insensible losses. Diabetes mellitus Accu-Cheks Mild sliding scale insulin GERD (gastroesophageal reflux disease) Continue Protonix Hypertension Blood pressure stable. Will continue to monitor and adjust medications as needed Vascular dementia History of CVA with residual deficit Functional quadriplegia Hypernatremia Now resolved Continue to monitor DVT prophylaxis: Hold GI prophylaxis: Protonix as above Diet: Jtube feeds, continuous Disposition: Continue Jtube feeds. Patient continues to have leaked around PEG tube along with increased output on LIWS. This will need to discuss with general surgery. Patient is not a good surgical candidate. Social work did speak to sister on the phone she states that she cannot comment for further discussion. I will call sister tomorrow further goals of care.
[2018-11-15] MEDS: ATORVASTATIN 80 MG TAB FT SCH (21:28)
[2018-11-15] MEDS: CARVEDILOL 25 MG TAB FT SCH (21:28)
[2018-11-16] MEDS: GLUCERNA 1.5 CAL 1,000 ML BOT RTH SCH ×2 (01:48→21:29)
[2018-11-16] MEDS: Meropenem 500 MG in NA CHLORIDE 0.9% 100 ML IV SCH ×3 (01:48→18:08)
[2018-11-16 05:08] LABS: Potassium 4.1 mmol/L (3.5-5.1)
--- NOTE | 2018-11-16 08:15 | P.PN ---
Subjective Date of Service: 11/16/18 Chief Complaint: PEG tube malfunction, gastritis, coffee-ground leakage, placement J tube Patient non-verbal no acute distress Physical Examination - Vital Signs Temperature: 98.4 F Blood Pressure: 117/60 Pulse: 100 Respirations: 20 Pulse Ox (%): 98 - Physical Exam General: Alert, In no apparent distress Gastrointestinal: Other (soft, NT, ND, wound is clean and dry in midline, minimal drainage from PEG site, however PEG was not snug to abd wall, J tube site is clean and dry, functioning well) Assessment And Plan - Current Problems (Diagnosis) (1) PEG (percutaneous endoscopic gastrostomy) status Current Visit: Yes Status: Acute Plan: PEG to gravity, keep button snug to skin level and place drain dressings continue daily dressing changes to wound - use santyl continue J tube feeding
[2018-11-16] MEDS: INSULIN -REGULAR HUMAN 50 UNIT/0.5 ML ML SQ SCH ×4 (10:05→21:26)
[2018-11-16] MEDS: PANTOPRAZOLE 40 MG INJ IVP SCH (10:05)
[2018-11-16] MEDS: AMLODIPINE 5 MG TAB FT SCH (10:06)
[2018-11-16] MEDS: PARoxetine HCl 10 MG TAB FT SCH (10:06)
[2018-11-16] MEDS: Gentamicin Inj 140 MG in NA CHLORIDE 0.9% 100 ML IV SCH ×3 (11:18→14:32)
--- NOTE | 2018-11-16 12:40 | P.PN ---
Subjective Date of Service: 11/16/18 Chief Complaint: PEG tube malfunction, gastritis, coffee-ground leakage, placement J tube Subjective: No new changes Patient seen and examined at bedside. No family at bedside. Chart reviewed and case discussed with nursing staff and . Patient is a shelter patient, no family at bedside today. PEG tube on the gravity. No discharge noted at site of PEG tube. General surgery saw the patient, tightened button at site of PEG tube insertion. No leakage noted. He seems to be tolerating G-tube feeds. No diarrhea overnight. TPN now weaned off. Review of Systems 10-point ROS is otherwise unremarkable Physical Examination - Vital Signs Temperature: 98.6 F Blood Pressure: 157/79 Pulse: 102 Respirations: 20 Pulse Ox (%): 96 - Physical Exam General: Alert, Demented Gastrointestinal: Other (PEG in place, no leakage noted today. On gravity, off of suction. J-tube in place) Neurological: Other (wound on abdomen clean; no discharge noted. ) Assessment And Plan - Current Problems (Diagnosis) (1) Functional quadriplegia Current Visit: No Status: Acute (2) Malfunction of percutaneous endoscopic gastrostomy (PEG) tube Onset Date: 01/30/17 Current Visit: No Status: Acute (3) Diabetes mellitus Onset Date: 01/11/17 Current Visit: No Status: Chronic (4) GERD (gastroesophageal reflux disease) Onset Date: 01/11/17 Current Visit: No Status: Chronic Qualifiers: (5) History of CVA with residual deficit Onset Date: 01/11/17 Current Visit: No Status: Chronic (6) Hypertension Onset Date: 01/11/17 Current Visit: No Status: Chronic Qualifiers: (7) Renal insufficiency Onset Date: 01/11/17 Current Visit: No Status: Chronic (8) Vascular dementia Onset Date: 10/15/14 Current Visit: No Status: Chronic (9) Cellulitis Current Visit: Yes Status: Acute Qualifiers: Site of cellulitis: trunk Site of cellulitis of trunk: abdominal wall Qualified Code(s): L03.311 - Cellulitis of abdominal wall - Plan Malfunction of percutaneous endoscopic gastrostomy (PEG) tube status post jejunostomy tube placement. PEG tube still in place due to adherence to the stomach. He will need major surgery for removal with partial gastrectomy. Unsure if patient is a good surgical candidate, the general surgery on board. Continue PEG tube on gravity. He does have a central line placed, TPN now off. Continue continuous J tube feeds. Dietitian consulted, on board. Recommendations appreciated PEG tube site infection with Abdominal wall cellulitis and wound secondary to ESBL Escherichia coli and Pseudomonas, currently on meropenem and gentamicin. White blood cell count is stable ID on board. Per ID, he will need w more weeks of gentamicin and meropenem. Last date: 11/30/18. Acute on chronic Kidney disease, stage 3 Creatinine improving, seems to be at baseline. Continue to avoid nephrotoxic medications We Will continue to monitor Severe protein-calorie malnutrition, albumin is less than 2 Systemic inflammatory response syndrome, developing sepsis. Afebrile overnight, White count improving, though still elevated, tachycardic. Diabetes mellitus Accu-Cheks Mild sliding scale insulin GERD (gastroesophageal reflux disease) Continue Protonix Hypertension Blood pressure stable. Will continue to monitor and adjust medications as needed Vascular dementia History of CVA with residual deficit Functional quadriplegia Hypernatremia Now resolved Continue to monitor DVT prophylaxis: Hold GI prophylaxis: Protonix as above Diet: Jtube feeds, continuous Disposition: Continue Jtube feeds. Leakage has ceased, PEG on gravity. Patient is not a good surgical candidate. If continues without leakage tomorrow , will discharge patient back to shelter with Jtube feeds, PEG on gravity and IV antibiotics x 2 weeks. Discharge Plan: Custodial Plan to discharge in: 24 Hours
[2018-11-16] MEDS: ENOXAPARIN 30 MG/0.3 ML SQ SCH (18:08)
[2018-11-16] MEDS: CARVEDILOL 25 MG TAB FT SCH (21:27)
[2018-11-16] MEDS: ATORVASTATIN 80 MG TAB FT SCH (21:28)
[2018-11-17] MEDS: Meropenem 500 MG in NA CHLORIDE 0.9% 100 ML IV SCH ×3 (00:13→16:52)
[2018-11-17] MEDS: PANTOPRAZOLE 40 MG INJ IVP SCH (09:00)
[2018-11-17] MEDS: INSULIN -REGULAR HUMAN 50 UNIT/0.5 ML ML SQ SCH ×4 (09:27→21:54)
[2018-11-17] MEDS: PARoxetine HCl 10 MG TAB FT SCH (09:27)
[2018-11-17] MEDS: AMLODIPINE 5 MG TAB FT SCH (09:27)
[2018-11-17] MEDS: COLLAGENASE 30 GM OINTMENT TOP SCH (12:18)
--- NOTE | 2018-11-17 13:25 | P.PN ---
Subjective Date of Service: 11/17/18 Chief Complaint: PEG tube malfunction, gastritis, coffee-ground leakage, placement J tube Subjective: No new changes Patient seen and examined at bedside. No family at bedside. Chart reviewed and case discussed with nursing staff and . Patient is a [facility] patient, no family at bedside today. PEG tube on the gravity. No discharge noted at site of PEG tube, though discharge noted from wound. General surgery saw the patient, tightened button at site of PEG tube insertion. No leakage noted. He seems to be tolerating G-tube feeds. No diarrhea overnight. TPN now weaned off. Review of Systems 10-point ROS is otherwise unremarkable Physical Examination - Vital Signs Temperature: 97.0 F Blood Pressure: 166/92 Pulse: 102 Respirations: 20 Pulse Ox (%): 100 Assessment And Plan - Current Problems (Diagnosis) (1) Functional quadriplegia Current Visit: No Status: Acute (2) Malfunction of percutaneous endoscopic gastrostomy (PEG) tube Onset Date: 01/30/17 Current Visit: No Status: Acute (3) Diabetes mellitus Onset Date: 01/11/17 Current Visit: No Status: Chronic (4) GERD (gastroesophageal reflux disease) Onset Date: 01/11/17 Current Visit: No Status: Chronic Qualifiers: (5) History of CVA with residual deficit Onset Date: 01/11/17 Current Visit: No Status: Chronic (6) Hypertension Onset Date: 01/11/17 Current Visit: No Status: Chronic Qualifiers: (7) Renal insufficiency Onset Date: 01/11/17 Current Visit: No Status: Chronic (8) Vascular dementia Onset Date: 10/15/14 Current Visit: No Status: Chronic (9) Cellulitis Current Visit: Yes Status: Acute Qualifiers: Site of cellulitis: trunk Site of cellulitis of trunk: abdominal wall Qualified Code(s): L03.311 - Cellulitis of abdominal wall - Plan Malfunction of percutaneous endoscopic gastrostomy (PEG) tube status post jejunostomy tube placement. PEG tube still in place due to adherence to the stomach. He will need major surgery for removal with partial gastrectomy. Unsure if patient is a good surgical candidate, the general surgery on board. Continue PEG tube on gravity. He does have a central line placed, TPN now off. Continue continuous J tube feeds. Dietitian consulted, on board. Recommendations appreciated PEG tube site infection with Abdominal wall cellulitis and wound secondary to ESBL Escherichia coli and Pseudomonas, currently on meropenem and gentamicin. White blood cell count is elevated but stable ID on board. Per ID, he will need w more weeks of gentamicin and meropenem. Last date: 11/30/18. Acute on chronic Kidney disease, stage 3 Creatinine improving, seems to be at baseline. Continue to avoid nephrotoxic medications We Will continue to monitor Severe protein-calorie malnutrition, albumin is less than 2 Systemic inflammatory response syndrome, developing sepsis. Afebrile overnight, White count improving, though still elevated, tachycardic. Diabetes mellitus Accu-Cheks Mild sliding scale insulin GERD (gastroesophageal reflux disease) Continue Protonix Hypertension Blood pressure stable. Will continue to monitor and adjust medications as needed Vascular dementia History of CVA with residual deficit Functional quadriplegia Hypernatremia Now resolved Continue to monitor DVT prophylaxis: Hold GI prophylaxis: Protonix as above Diet: Jtube feeds, continuous Disposition: Continue Jtube feeds. Leakage has ceased, PEG on gravity. Patient is not a good surgical candidate. Will confirm with general surgery regarding PEG tube plans.
[2018-11-17] MEDS: ENOXAPARIN 30 MG/0.3 ML SQ SCH (16:52)
[2018-11-17] MEDS: CARVEDILOL 25 MG TAB FT SCH (21:50)
[2018-11-17] MEDS: ATORVASTATIN 80 MG TAB FT SCH (21:50)
[2018-11-17] MEDS: GLUCERNA 1.5 CAL 1,000 ML BOT RTH SCH (22:00)
[2018-11-18] MEDS: Meropenem 500 MG in NA CHLORIDE 0.9% 100 ML IV SCH ×3 (00:29→16:59)
[2018-11-18] MEDS: MORPHINE 2 MG/ML SYR IV PRN (08:50)
[2018-11-18] MEDS: AMLODIPINE 5 MG TAB FT SCH (08:51)
[2018-11-18] MEDS: INSULIN -REGULAR HUMAN 50 UNIT/0.5 ML ML SQ SCH ×4 (08:51→21:56)
[2018-11-18] MEDS: PARoxetine HCl 10 MG TAB FT SCH (08:51)
[2018-11-18] MEDS: PANTOPRAZOLE 40 MG INJ IVP SCH (08:51)
[2018-11-18] MEDS: COLLAGENASE 30 GM OINTMENT TOP SCH (08:52)
[2018-11-18] MEDS: Gentamicin Inj 140 MG in NA CHLORIDE 0.9% 100 ML IV SCH (13:22)
[2018-11-18] MEDS: ENOXAPARIN 30 MG/0.3 ML SQ SCH (16:59)
--- NOTE | 2018-11-18 19:22 | P.PN ---
Subjective Date of Service: 11/18/18 Chief Complaint: PEG tube malfunction, gastritis, coffee-ground leakage, placement J tube Subjective: No new changes Patient seen and examined at bedside. No family at bedside. Chart reviewed and case discussed with nursing staff and . Patient is a [facility] patient, no family at bedside today. PEG tube on the gravity. No discharge noted at site of PEG tube, though discharge noted from wound. General surgery saw the patient, tightened button at site of PEG tube insertion. No leakage noted. He seems to be tolerating G-tube feeds. No diarrhea overnight. TPN now weaned off. Review of Systems 10-point ROS is otherwise unremarkable Physical Examination - Vital Signs Temperature: 97.9 F Blood Pressure: 151/82 Pulse: 95 Respirations: 19 Pulse Ox (%): 98 - Physical Exam General: In no apparent distress, Demented Respiratory: Clear to auscultation bilaterally, Normal air movement Cardiovascular: Regular rate/rhythm, Normal S1 S2 Gastrointestinal: Other (Jtube in place; peg still in place, on gravity) Musculoskeletal: Contractures Assessment And Plan - Current Problems (Diagnosis) (1) Functional quadriplegia Current Visit: No Status: Acute (2) Malfunction of percutaneous endoscopic gastrostomy (PEG) tube Onset Date: 01/30/17 Current Visit: No Status: Acute (3) Diabetes mellitus Onset Date: 01/11/17 Current Visit: No Status: Chronic (4) GERD (gastroesophageal reflux disease) Onset Date: 01/11/17 Current Visit: No Status: Chronic Qualifiers: (5) History of CVA with residual deficit Onset Date: 01/11/17 Current Visit: No Status: Chronic (6) Hypertension Onset Date: 01/11/17 Current Visit: No Status: Chronic Qualifiers: (7) Renal insufficiency Onset Date: 01/11/17 Current Visit: No Status: Chronic (8) Vascular dementia Onset Date: 10/15/14 Current Visit: No Status: Chronic (9) Cellulitis Current Visit: Yes Status: Acute Qualifiers: Site of cellulitis: trunk Site of cellulitis of trunk: abdominal wall Qualified Code(s): L03.311 - Cellulitis of abdominal wall - Plan Malfunction of percutaneous endoscopic gastrostomy (PEG) tube status post jejunostomy tube placement. PEG tube still in place due to adherence to the stomach. He will need major surgery for removal with partial gastrectomy. Unsure if patient is a good surgical candidate, the general surgery on board. Continue PEG tube on gravity. He does have a central line placed, TPN now off. Continue continuous J tube feeds. Dietitian consulted, on board. Recommendations appreciated PEG tube site infection with Abdominal wall cellulitis and wound secondary to ESBL Escherichia coli and Pseudomonas, currently on meropenem and gentamicin. White blood cell count is elevated but stable ID on board. Per ID, he will need w more weeks of gentamicin and meropenem. Last date: 11/30/18. Acute on chronic Kidney disease, stage 3 Creatinine improving, seems to be at baseline. Continue to avoid nephrotoxic medications We Will continue to monitor Severe protein-calorie malnutrition, albumin is less than 2 Systemic inflammatory response syndrome, developing sepsis. Afebrile overnight, White count improving, though still elevated, tachycardic. Diabetes mellitus Accu-Cheks Mild sliding scale insulin GERD (gastroesophageal reflux disease) Continue Protonix Hypertension Blood pressure stable. Will continue to monitor and adjust medications as needed Vascular dementia History of CVA with residual deficit Functional quadriplegia Hypernatremia Now resolved Continue to monitor DVT prophylaxis: Hold GI prophylaxis: Protonix as above Diet: Jtube feeds, continuous Disposition: Continue Jtube feeds. Leakage has ceased, PEG on gravity. Patient is not a good surgical candidate. Will confirm with general surgery regarding PEG tube plans.
[2018-11-18] MEDS: CARVEDILOL 25 MG TAB FT SCH (21:15)
[2018-11-18] MEDS: ATORVASTATIN 80 MG TAB FT SCH (21:16)
[2018-11-18] MEDS: GLUCERNA 1.5 CAL 1,000 ML BOT RTH SCH (22:01)
[2018-11-19] MEDS: Meropenem 500 MG in NA CHLORIDE 0.9% 100 ML IV SCH ×3 (00:04→16:51)
[2018-11-19 06:08] LABS: Potassium 4.7 mmol/L (3.5-5.1)
--- NOTE | 2018-11-19 08:52 | PN ---
Subjective: Patient is lying in bed, more alert and awake, nonverbal, not in any acute distress. Objective: Vital Signs: Temperature 98, pulse 100, respirations 18, blood pressure 117/60. Lungs: Basilar crackles. Heart: S1, S2. Regular. Abdomen: Soft. Bowel sounds present. Extremity: 1+ edema with muscle contractures noted. Laboratory Data: Shows WBC 12, hemoglobin 10.9, platelets 159. Chemistry shows sodium 146, potassiu m 4.1, chloride 111, bicarb 29, BUN 29, creatinine 1.4, glucose 226. Current Medications: Includes meropenem and gentamicin. Assessment And Plan: Abdominal wall cellulitis and PEG side infection, improving. Mild leukocytosis . Continue empiric antibiotics, 2 more weeks. We will follow the patient as needed. NF/MODL Voice ID: [id number] Report ID: [id number]
[2018-11-19] MEDS: INSULIN -REGULAR HUMAN 50 UNIT/0.5 ML ML SQ SCH ×4 (09:42→21:35)
[2018-11-19] MEDS: PANTOPRAZOLE 40 MG INJ IVP SCH (09:42)
[2018-11-19] MEDS: AMLODIPINE 5 MG TAB FT SCH (09:42)
[2018-11-19] MEDS: PARoxetine HCl 10 MG TAB FT SCH (09:42)
[2018-11-19] MEDS: COLLAGENASE 30 GM OINTMENT TOP SCH (09:43)
--- NOTE | 2018-11-19 13:34 | P.PN ---
Subjective Date of Service: 11/19/18 Chief Complaint: PEG tube malfunction, gastritis, coffee-ground leakage, placement J tube Subjective: No new changes Patient seen and examined at bedside. No family at bedside. Chart reviewed and case discussed with nursing staff and . Patient is a [facility], no family at bedside today. PEG tube on the gravity. No discharge noted at site of PEG tube, though discharge noted from wound. General surgery saw the patient, tightened button at site of PEG tube insertion. More leakage noted today compared to yesterday. He seems to be tolerating G-tube feeds. No diarrhea overnight. TPN now weaned off. Review of Systems 10-point ROS is otherwise unremarkable Physical Examination - Vital Signs Temperature: 98.1 F Blood Pressure: 117/59 Pulse: 114 Respirations: 18 Pulse Ox (%): 95 - Physical Exam General: Demented Respiratory: Clear to auscultation bilaterally, Normal air movement Cardiovascular: Regular rate/rhythm, Normal S1 S2 Gastrointestinal: Other (Airplanes for) Assessment And Plan - Current Problems (Diagnosis) (1) Functional quadriplegia Current Visit: No Status: Acute (2) Malfunction of percutaneous endoscopic gastrostomy (PEG) tube Onset Date: 01/30/17 Current Visit: No Status: Acute (3) Diabetes mellitus Onset Date: 01/11/17 Current Visit: No Status: Chronic (4) GERD (gastroesophageal reflux disease) Onset Date: 01/11/17 Current Visit: No Status: Chronic Qualifiers: (5) History of CVA with residual deficit Onset Date: 01/11/17 Current Visit: No Status: Chronic (6) Hypertension Onset Date: 01/11/17 Current Visit: No Status: Chronic Qualifiers: (7) Renal insufficiency Onset Date: 01/11/17 Current Visit: No Status: Chronic (8) Vascular dementia Onset Date: 10/15/14 Current Visit: No Status: Chronic (9) Cellulitis Current Visit: Yes Status: Acute Qualifiers: Site of cellulitis: trunk Site of cellulitis of trunk: abdominal wall Qualified Code(s): L03.311 - Cellulitis of abdominal wall - Plan Malfunction of percutaneous endoscopic gastrostomy (PEG) tube status post jejunostomy tube placement. PEG tube still in place due to adherence to the stomach. He will need major surgery for removal with partial gastrectomy. Unsure if patient is a good surgical candidate, the general surgery on board. Continue PEG tube on gravity. He does have a central line placed, TPN now off. Continue continuous J tube feeds. Dietitian consulted, on board. Recommendations appreciated PEG tube site infection with Abdominal wall cellulitis and wound secondary to ESBL Escherichia coli and Pseudomonas, currently on meropenem and gentamicin. White blood cell count is elevated but stable ID on board. Per ID, he will need w more weeks of gentamicin and meropenem. Last date: 11/30/18. Acute on chronic Kidney disease, stage 3 Creatinine improving, seems to be at baseline. Continue to avoid nephrotoxic medications We Will continue to monitor Severe protein-calorie malnutrition, albumin is less than 2 Systemic inflammatory response syndrome, developing sepsis. Afebrile overnight, White count improving, though still elevated, tachycardic. Diabetes mellitus Accu-Cheks Mild sliding scale insulin GERD (gastroesophageal reflux disease) Continue Protonix Hypertension Blood pressure stable. Will continue to monitor and adjust medications as needed Vascular dementia History of CVA with residual deficit Functional quadriplegia Hypernatremia Now resolved Continue to monitor DVT prophylaxis: Hold GI prophylaxis: Protonix as above Diet: Jtube feeds, continuous Disposition: Continue Jtube feeds. Leakage has decreased, PEG on gravity. Patient is not a good surgical candidate. Surgery returning on Monday, re- evaluation for surgery at that point. Discussed with Dr. Soto via telephone. Discharge Plan: [facility]
[2018-11-19] MEDS: ENOXAPARIN 30 MG/0.3 ML SQ SCH (16:51)
[2018-11-19] MEDS: ATORVASTATIN 80 MG TAB FT SCH (21:35)
[2018-11-19] MEDS: CARVEDILOL 25 MG TAB FT SCH (21:35)
[2018-11-19] MEDS ORDERED: NA CHLORIDE 0.9% 250 ML ONE (22:40)
[2018-11-20] MEDS: Meropenem 500 MG in NA CHLORIDE 0.9% 100 ML IV SCH ×3 (00:19→18:06)
[2018-11-20] MEDS: MORPHINE 2 MG/ML SYR IV PRN (02:19)
[2018-11-20 06:12] LABS: Magnesium 2.6 mg/dL (1.8-2.4); Phosphorus 2.1 mg/dL (2.5-4.9); Potassium 4.8 mmol/L (3.5-5.1)
[2018-11-20] MEDS: POTASS/SODIUM PHOSPHATE 1 PKT POWD.PACK PO SCH ×2 (07:00→08:00)
[2018-11-20] MEDS: INSULIN -REGULAR HUMAN 50 UNIT/0.5 ML ML SQ SCH ×4 (07:30→21:26)
[2018-11-20] MEDS: COLLAGENASE 30 GM OINTMENT TOP SCH (09:00)
[2018-11-20] MEDS: PANTOPRAZOLE 40 MG INJ IVP SCH (09:42)
[2018-11-20] MEDS: PARoxetine HCl 10 MG TAB FT SCH (09:43)
[2018-11-20] MEDS: AMLODIPINE 5 MG TAB FT SCH (09:43)
[2018-11-20] MEDS ORDERED: SODIUM PHOSPHATE 15 MM in NA CHLORIDE 0.9% 250 ML IV ONE (11:00)
[2018-11-20] MEDS: Gentamicin Inj 140 MG in NA CHLORIDE 0.9% 100 ML IV SCH (14:46)
[2018-11-20] MEDS: ENOXAPARIN 30 MG/0.3 ML SQ SCH (17:00)
--- NOTE | 2018-11-20 20:26 | PN ---
Date of Progress Note: 11/20/2018 Subjective: The patient seen and examined. Chart reviewed and case discussed with RN and Dr. Spivey. The patient able to say yes or no, and answer simple questions. Denies any pain at this time. The patient is tolerating his feeds. Now off TPN. Code Status: Full. Medications reviewed Physical Examination: Vital Signs: Temperature 97.8, heart rate 99, blood pressure 134/72, respirations 18, and O2 100% on 2 L via nasal cannula. General: Awake, alert, oriented to self only, not in any acute distress. Elderly male, ill-appearing. CV: S1 and S2. Regular rate and rhythm. Peripheral pulses present. Respiratory: Diminished breath sounds at the bases, otherwise moving air well bilaterally. Gastrointestinal: Abdomen is soft, nontender, and nondistended. Positive bowel sounds. PEG tube in place as is the J-tube. Extremities: No clubbing or cyanosis. The patient has edema of the right upper and lower extremity. Neurologic: Right-sided paralysis with severe contractures. Laboratory Data: Sodium 144, potassium 4.8, chloride 110, CO2 31, BUN 32, creatinine 1.29, glucose 211, calcium 7.5, phosphorus 2.1, magnesium 2.6. Cultures from the PEG tube growing out Escherichia coli ESBL producing as well as Pseudomonas aeruginosa. Blood cultures are negative. Assessment And Plan: 1. PEG tube malfunction. The patient has now status post jejunostomy tube placement, tolerating feeds, off TPN. PEG tube has adherence in the stomach. We will likely require major surgery for removal with possibly partial gastrectomy. Dr. Soto's will be returning tomorrow per Dr. Cornell. Dr. Soto is still planning to do the surgery. For now PEG tube is on drainage to gravity. 2. PEG tube site infection with abdominal wall cellulitis and wound secondary to extended spectrum beta-lactamase Escherichia coli and Pseudomonas. Currently on meropenem and gentamicin till November 30, 2018. Appreciate Infectious Disease input. We will speak with Case Management and refer to LTAC for wound care and long-term IV antibiotics. Improved. 3. Gkgvc-zc-adhmuwr kidney disease stage 3. Creatinine improving, currently at baseline. We will avoid NSAIDs and continue to monitor levels. 4. Severe protein-calorie malnutrition. Albumin was 2. 5. Systemic inflammatory response syndrome. No sepsis. The patient has been afebrile. White blood cell count mildly elevated. We will recheck CBC in a.m. Continue antibiotics. 6. Diabetes mellitus type 2 with hyperglycemia, insulin requiring. We will continue monitoring Accu-Cheks and sliding scale insulin. 7. Hypermagnesemia. Continue to monitor. 8. Essential hypertension, stable. Continue medications. 9. Gastroesophageal reflux disease without esophagitis. Continue Protonix. 10. Vascular dementia. 11. History of cerebrovascular accident with right-sided weakness and contractures. 12. Functional quadriplegia. Plan: We will await surgical evaluation for PEG tube removal. CHANDANA Voice ID: [id number] Report ID: [id number] MTDSage
--- NOTE | 2018-11-20 20:41 | PN ---
Subjective: The patient is a 78-year-old male, lying in bed, opens eyes spontaneously. Sister is by the bedside. Objective: Vital Signs: Temperature 97.8, pulse 99, respiration 18, blood pressure 134/72. Lungs: Basal crackles. Heart: S1 and S2. Regular. Abdomen: Soft and nontender. Bowel sounds present. Extremities: Contractures noted. Laboratory Data: Shows WBC 12.4, hemoglobin 10.9, platelets 159. Chemistry shows sodium 144, potass ium 4.8, chloride 110, bicarb 31, BUN 32, creatinine 1.29, glucose 211. Micro Data: E coli and Pseudomonas in PEG tube site. Assessment And Plan: Abdominal cellulitis, improving. PEG site infection. Currently being treated with antibiotic meropenem and gentamicin. We will continue current treatment. We will follow the sherley medina as needed. CORINNA/MODDillan Voice ID: [id number] Report ID: [id number]
[2018-11-20] MEDS: ATORVASTATIN 80 MG TAB FT SCH (21:23)
[2018-11-20] MEDS: CARVEDILOL 25 MG TAB FT SCH (21:23)
[2018-11-20] MEDS ORDERED: NA CHLORIDE 0.9% 250 ML ONE (22:22)
[2018-11-21] MEDS: Meropenem 500 MG in NA CHLORIDE 0.9% 100 ML IV SCH ×3 (00:05→16:46)
[2018-11-21 05:08] LABS: Absolute Lymphocytes (CBC) 0.8 K/uL (0.7-4.9); Absolute Monocytes 0.8 K/uL (0.1-1.3); Absolute Neutrophil 9.3 K/uL (1.8-8.0); Basophils % 0.2 % (0-1.3); Eosinophils % 2.6 % (0-4.4); Hematocrit 31.9 % (39.6-49.0); Lymphocytes % 7.1 % (15.3-44.8); MPV 9.2 fL (7.6-11.3); Monocytes % 7.4 % (3.3-12.3)
[2018-11-21 05:25] LABS: Bilirubin Total 0.1 mg/dL (0.2-1.0); Phosphorus 2.6 mg/dL (2.5-4.9); Potassium 4.9 mmol/L (3.5-5.1); Protein, Total 5.9 g/dL (6.4-8.2)
[2018-11-21] MEDS: INSULIN -REGULAR HUMAN 50 UNIT/0.5 ML ML SQ SCH ×4 (09:13→21:00)
[2018-11-21] MEDS: PARoxetine HCl 10 MG TAB FT SCH (09:14)
[2018-11-21] MEDS: AMLODIPINE 5 MG TAB FT SCH (09:14)
[2018-11-21] MEDS: PANTOPRAZOLE 40 MG INJ IVP SCH (09:15)
[2018-11-21] MEDS: COLLAGENASE 30 GM OINTMENT TOP SCH (09:15)
[2018-11-21] MEDS: GLUCERNA 1.5 CAL 1,000 ML BOT RTH SCH (10:00)
--- NOTE | 2018-11-21 16:03 | PN ---
Date of Progress Note: 11/21/2018 Subjective: The patient is seen and examined. Chart reviewed and case discussed with RN and Dr. Ambreen sutherland. The patient otherwise doing well. No acute events overnight. Tolerating his feeds. Medications: List reviewed. Physical Examination: Vital Signs: Temperature 97.2, heart rate 90, blood pressure 145/66, respirations 18, and O2 94% on room air. General: Awake, alert, and oriented x3. Elderly male, not in any acute distress. CV: S1 and S2. Regular rate and rhythm. Peripheral pulses present. Respiratory: Moving air well bilaterally. No wheezing or stridor. Gastrointestinal: Abdomen is soft, nontender, and nondistended. Positive bowel sounds. PEG tube an d NG tube in place. Extremities: No clubbing or cyanosis. The patient does have peripheral edema on the bilateral lower extremities and right upper extremity. Neurologic: Right-sided weakness with contractures. Laboratory Data: Sodium 142, potassium 4.9, chloride 108, CO2 31, BUN 30, creatinine 1.24, glucose 2 04, calcium 7.5, phosphorus 2.6, albumin is 1. WBC 11.2, H and H 10.3 and 31.9, platelets 196, neutr ophils 82%. Blood cultures, no growth to date. PEG tube cultures growing ESBL E coli and Pseudomona s aeruginosa. Assessment And Plan: A 78-year-old male with: 1.PEG tube malfunction, now status post jejunostomy tube placement. The patient is tolerating feeds . No longer on TPN. Dr. Soto will be reassessing the patient today for possible PEG tube remova l, which has some adherence of the stomach, which will likely require large resection and possible pa rtial gastrectomy. 2.PEG tube site infection with abdominal wall cellulitis and wound secondary to extended spectrum be ta-lactamase Escherichia coli and Pseudomonas. We will continue on meropenem and gentamicin till November 30. Dr. Damon on board. The patient has been referred to LTAC. 3.Bscwo-oh-hekgbqm kidney injury, stage 3. Creatinine is returned back to baseline. We will contin ue to monitor creatinine level and avoid NSAIDs. 4.Severe protein-calorie malnutrition. Albumin is 1. We will continue tube feeds and reassess. 5.Systemic inflammatory response syndrome. No sepsis. White count close to normal. No signs of se psis at this time. Continue antibiotics. 6.Diabetes mellitus type 2 with hyperglycemia, insulin requiring. We will continue Accu-Cheks and a djust sliding scale insulin as needed. 7.Hypomagnesemia. Continue to monitor. 8.Essential hypertension, stable. 9.Gastroesophageal reflux disease without esophagitis. Continue Protonix. 10.Vascular dementia. 11.History of cerebrovascular accident with right-sided weakness and contractures. 12.Functional quadriplegia. Plan: Possible PEG tube removal. The patient unable to make his own decisions. We will need to con tact NICHOLAS. /AMY Voice ID: [id number] Report ID: [id number]
[2018-11-21] MEDS: ENOXAPARIN 30 MG/0.3 ML SQ SCH (16:46)
--- NOTE | 2018-11-21 17:57 | PN ---
Subjective: The patient is lying in bed, not in any acute distress. Objective: Vital Signs: Temperature 97, pulse 90, respiration 19, blood pressure 142/66. Lungs: Basal crackles. Heart: S1, S2. Regular. Abdomen: Soft, nontender. Bowel sounds present. Extremities: Contractures noted. Muscle wasting. Laboratory Data: WBC 43489, hemoglobin 10.3, platelets 196. Chemistry shows sodium 142, potassium 4 .9, chloride 108, bicarb 31, BUN 30, creatinine 1.2, glucose is 204. Current medications include gentamicin and meropenem. PEG site area has E. coli and Pseudomonas ESBL . Assessment And Plan: Abdominal wall cellulitis improving. PEG site infection. Continue antibiotic, supportive care, and wound care. We will follow the patient as needed. CORINNA/MODL Voice ID: [id number] Report ID: [id number]
[2018-11-21] MEDS: ATORVASTATIN 80 MG TAB FT SCH (21:00)
[2018-11-21] MEDS: CARVEDILOL 25 MG TAB FT SCH (21:49)
[2018-11-21] MEDS: MORPHINE 2 MG/ML SYR IV PRN (21:51)
[2018-11-22] MEDS: Meropenem 500 MG in NA CHLORIDE 0.9% 100 ML IV SCH ×4 (00:41→23:59)
[2018-11-22] MEDS ORDERED: PANTOPRAZOLE 40MG TABLET PO SCH (06:30)
[2018-11-22] MEDS: INSULIN -REGULAR HUMAN 50 UNIT/0.5 ML ML SQ SCH ×6 (07:30→20:56)
[2018-11-22] MEDS: PANTOPRAZOLE 40 MG INJ IVP SCH (09:00)
[2018-11-22] MEDS: COLLAGENASE 30 GM OINTMENT TOP SCH (09:00)
[2018-11-22] MEDS: AMLODIPINE 5 MG TAB FT SCH (10:26)
[2018-11-22] MEDS: PARoxetine HCl 10 MG TAB FT SCH (10:26)
[2018-11-22] MEDS: GLUCERNA 1.5 CAL 1,000 ML BOT RTH SCH (10:35)
[2018-11-22] MEDS: Gentamicin Inj 140 MG in NA CHLORIDE 0.9% 100 ML IV SCH (12:26)
--- NOTE | 2018-11-22 16:10 | PN ---
Date of Progress Note: 11/22/2018 Subjective: The patient seen and examined, chart reviewed and case discussed with RN and Dr. Shadia mcdermott No plans for surgical removal of PEG tube. Unable to reach the patient's medical power of attorn ey to start LTAC referral process. No acute events overnight. No incidents reported by nursing staf f. Medications: List reviewed. Physical Examination: Vital Signs: Temperature 98.3, heart rate 96, blood pressure 157/81, respirations 18, O2 98% on room air. General: Awake, alert, oriented x2, not in any acute distress, elderly male. CV: S1, S2. Regular rate and rhythm. Peripheral pulses present Respiratory: Moving air well bilaterally. No wheezing. Gastrointestinal: Abdomen is soft, nontender, nondistended. Positive bowel sounds. PEG tube and J tube in place. Extremities: No clubbing, cyanosis. The patient has peripheral edema, right worse than left upper a nd lower extremity. NEURO: Right-sided weakness with contractures. Laboratory Data: Pending. Cultures, PEG tube cultures growing out ESBL E coli and Pseudomonas aerugi nosa. Blood cultures are negative. Assessment: A 78-year-old male with: 1.PEG tube malfunction, status post jejunostomy tube placement, on feeds. Spoke with Dr. Charles sewell. The PEG tube will remain in place as it will continue to drain any excess from the jejunos [place] tube feedings and essentially functioning as a preventative measure for aspiration. 2.Abdominal wall cellulitis, improved at the PEG site. Wound is secondary to extended-spectrum beta -lactamase Escherichia coli and Pseudomonas. We will continue intravenous antibiotics until November 30 for another 8 days. Appreciate Infectious Disease input. 3.Acute on chronic kidney injury stage 3. Creatinine currently normalized. We will continue to mon itor and avoid NSAIDs. 4.Severe protein-calorie malnutrition. Albumin less than 2. Continue tube feeds and reassess. 5.Systemic inflammatory response syndrome, resolved. No sepsis. White count essentially normal. C ontinue antibiotics. 6.Diabetes mellitus type 2 with hyperglycemia, insulin requiring. Continue Accu-Cheks and sliding s stella. 7.Essential hypertension, stable. 8.Gastroesophageal reflux disease without esophagitis. Continue Protonix. 9.Vascular dementia without behavioral disturbance. 10.History of cerebrovascular accident with right-sided weakness and contractures. 11.Functional quadriplegia. Plan: Refer to LTAC once medical power of securities attorney improves. DVT prophylaxis addressed. /AMY Voice ID: [id number] Report ID: [id number]
[2018-11-22] MEDS: ENOXAPARIN 30 MG/0.3 ML SQ SCH (16:24)
--- NOTE | 2018-11-22 20:43 | PN ---
Subjective: The patient is lying in bed. No new acute event. Opens eyes spontaneously. Objective: Vital Signs: Temperature 97.9, pulse 95, respiration 19, blood pressure 139/62. Lungs: Basal crackles. Heart: S1, S2. Regular. Abdomen: Soft, nontender. Bowel sounds present. Extremity: Trace edema and contractures noted. Laboratory Data: WBC 11,000, hemoglobin 10.3, platelets 196. Chemistry shows sodium 142, potassium 4.9, chloride 108, bicarb 31, BUN 30, creatinine 1.24, glucose is 204, albumin is 1. Assessment And Plan: Abdominal wall cellulitis and PEG site wound infection. The patient is doing s lightly better on antibiotics. Also has severe protein calorie malnourishment. Continue supportive care, wound care. The patient can be transferred to long-term facility for further wound care manage ment and antibiotics. NF/MODL Voice ID: [id number] Report ID: [id number]
[2018-11-22 20:44] VITALS: O2SAT 98
[2018-11-22] MEDS: CARVEDILOL 25 MG TAB FT SCH (20:55)
[2018-11-22] MEDS: ATORVASTATIN 80 MG TAB FT SCH (20:55)
[2018-11-23] MEDS: INSULIN -REGULAR HUMAN 50 UNIT/0.5 ML ML SQ SCH ×2 (05:17)
[2018-11-23 06:10] LABS: Magnesium 2.3 mg/dL (1.8-2.4); Phosphorus 2.4 mg/dL (2.5-4.9)
[2018-11-23] MEDS: MORPHINE 2 MG/ML SYR IV PRN (07:39)
[2018-11-23] MEDS: COLLAGENASE 30 GM OINTMENT TOP SCH (09:00)
[2018-11-23] MEDS: PANTOPRAZOLE 40 MG INJ IVP SCH (09:00)
[2018-11-23] MEDS ORDERED: POTASS/SODIUM PHOSPHATE 1 PKT POWD.PACK PO SCH (09:00)
[2018-11-23 09:32] VITALS: BP 146/66; TEMP 97.8
[2018-11-23] MEDS: AMLODIPINE 5 MG TAB FT SCH (10:14)
[2018-11-23] MEDS: PARoxetine HCl 10 MG TAB FT SCH (10:14)
[2018-11-23] MEDS: CLOPIDOGREL 75 MG TABLET FT SCH (10:14)
[2018-11-23] MEDS: Meropenem 500 MG in NA CHLORIDE 0.9% 100 ML IV SCH (10:14)
--- NOTE | 2018-11-24 02:29 | DS ---
Date of Discharge: 11/23/2018 Consultants: Dr. Damon with Infectious Disease, Dr. Soto with General Surgery, Dr. Cornell with GI. Procedures: 1.On 11/06/2018, endoscopy by Dr. Cornell, showed esophagitis, loose PEG tube which was snugged up to prevent further PEG stoma leakage, small hiatal hernia, ulcer in the antrum of the stomach, status p ost biopsy, duodenitis in the descending duodenum, multiple shallow ulcers in the descending duodenum . Pathology results show no evidence of Helicobacter pylori organism, some malignancy. Esophageal b iopsies shows stain consistent with rare fungal hyphae. No malignancy identified. 2.Procedures by Dr. Soto on 11/08/2018, exploratory laparotomy, extensive lysis of adhesions, op en jejunostomy tube placement. 3.Procedures on 11/12/2018, by Dr. Soto, central line placement and interpretation of fluoroscop y, right neck ultrasound for line placement. Admitting Diagnoses: 1.Malfunction of PEG tube. 2.Functional quadriplegia. 3.Diabetes mellitus, type 2. 4.GERD. 5.History of CVA with right-sided weakness. 6.Essential hypertension. 7.Renal insufficiency. 8.Vascular dementia. Discharge Diagnoses: 1.PEG tube malfunction, status post jejunostomy tube placement. 2.Abdominal wall cellulitis secondary to ESBL, E. coli, and Pseudomonas, improving, currently on ilana openem and gentamicin. 3.Acute on chronic kidney disease, stage 3. 4.Severe protein-calorie malnutrition. 5.Systemic inflammatory response syndrome, resolved. 6.Diabetes mellitus, type 2, with hyperglycemia, insulin requiring. 7.Gastroesophageal reflux disease with esophagitis. 8.Peptic and duodenal ulcer disease, on PPI. 9.Essential hypertension. 10.Vascular dementia without behavioral disturbance. 11.History of CVA with right-sided weakness and contractures. 12.Functional quadriplegia. Hospital Course: The patient is a 78-year-old, demented male from the nursing facility with severe d ebility with multiple comorbidities including diabetes, hypertension, CVA with severe right-sided con tractures, was admitted for PEG tube malfunction. The patient had a prolonged course in the hospital stay due to complications from his PEG tube site as well as his infection. The patient was started on IV antibiotics. Cultures were obtained from the PEG tube site, grew out E. coli, ESBL producing a nd Pseudomonas aeruginosa. Blood cultures remained negative. Infectious Disease, Dr. Damon, was co nsulted, who recommended meropenem and gentamicin for a total of 2 weeks. The patient's last dose wi ll be November 30, 2018. Dr. Cornell with GI was initially consulted for the PEG tube malfunction. He per formed the EGD as reported above and was able to adjust the PEG tube to make it more snug to prevent leakage from the stoma. However, once feeds were resumed, the patient still continued to have malfun ction. Therefore, General Surgery, Dr. Soto, was consulted and the patient was taken for explora tory laparotomy and had a J-tube placed. The PEG tube initially was not removed due to adhesions of the stomach and later was left in with a drainage. The patient was able to tolerate his feeds, which were bridged with TPN. Central line was also placed. It should be noted that the patient's family member, sister who was the medical power of fourth hand, were difficult to reach; however, were involved in the care of the patient. The patient overall did well. Unfortunately, his PEG tube was pulled o ut inadvertently when the nurses were turning him. Due to his severe contractures, the PEG 2 became tangled and got pulled out. All the PEG tube came out intact with the bulb and tip with no pieces re maining. Dr. Soto was informed. He did not recommend any endoscopy as the PEG tube was came out completely. The patient overall tolerated his tube feeds well through the J-tube. He was then refe rred back to the nursing facility to complete IV antibiotics. Medications: As per medication reconciliation list. Followup: Follow up with primary care physician in 2-3 days. Follow up with surgeon, Dr. Soto, in 2 weeks. Follow up with GI, Dr. Cornell, in 2-4 weeks. Return to ER for worsening condition. Diet: J-tube feeds. Activity: Fall precautions. Physical Examination: General: Awake, alert, oriented, not in any acute distress, elderly male. CV: S1, S2. Respiratory: Moving air well bilaterally. Abdomen: Soft, nontender, nondistended. Positive bowel sounds. Extremities: No clubbing, cyanosis. The patient has right upper and lower extremity edema. Neuro: Right-sided weakness with contractures. Skin: Former PEG tube stoma site clean, dry, intact. Abdominal wall cellulitis has improved signifi cantly. Total time spent discharging the patient was 43 minutes. /AMY Voice ID: [id number] Report ID: [id number]
== END 2018-11-23 11:55 | DRG 326 ==
LOC: ER 15:50 → ERHOLD 18:05 → 2ND 19:57 → 3RD-ICU 11-08 20:55 → 2ND 11-10 10:15
PROVIDERS: ADMIT Family Medicine; ATTEND Family Medicine
PROC: 0DB38ZX Excision of Lower Esophagus, Via Natural or Artificial Opening Endoscopic, Diagnostic (ICD-10-PCS; 2018-11-06)
PROC: 0DB78ZX Excision of Stomach, Pylorus, Via Natural or Artificial Opening Endoscopic, Diagnostic (ICD-10-PCS; 2018-11-06)
PROC: 0DHA0UZ Insertion of Feeding Device into Jejunum, Open Approach (ICD-10-PCS; 2018-11-08)
PROC: 0DN60ZZ Release Stomach, Open Approach (ICD-10-PCS; principal; 2018-11-08 14:00)
PROC: 02HV33Z Insertion of Infusion Device into Superior Vena Cava, Percutaneous Approach (ICD-10-PCS; 2018-11-12)
PROC: B5181ZA Fluoroscopy of Superior Vena Cava using Low Osmolar Contrast, Guidance (ICD-10-PCS; 2018-11-12)
PROC: 3E0436Z Introduction of Nutritional Substance into Central Vein, Percutaneous Approach (ICD-10-PCS; 2018-11-13)
PROC: 30243N1 Transfusion of Nonautologous Red Blood Cells into Central Vein, Percutaneous Approach (ICD-10-PCS; 2018-11-13)
DX: K94.23 Gastrostomy malfunction (principal); R53.2 Functional quadriplegia; E43 Unspecified severe protein-calorie malnutrition; L03.311 Cellulitis of abdominal wall; E87.0 Hyperosmolality and hypernatremia; I13.0 Hypertensive heart and chronic kidney disease with heart failure and stage 1 through stage 4 chronic kidney disease, or unspecified chronic kidney disease; K94.22 Gastrostomy infection; B96.20 Unspecified Escherichia coli [E. coli] as the cause of diseases classified elsewhere; B96.5 Pseudomonas (aeruginosa) (mallei) (pseudomallei) as the cause of diseases classified elsewhere; Y83.8 Other surgical procedures as the cause of abnormal reaction of the patient, or of later complication, without mention of misadventure at the time of the procedure; K25.9 Gastric ulcer, unspecified as acute or chronic, without hemorrhage or perforation; K29.80 Duodenitis without bleeding; D64.9 Anemia, unspecified; I69.365 Other paralytic syndrome following cerebral infarction, bilateral; Z16.12 Extended spectrum beta lactamase (ESBL) resistance; K66.0 Peritoneal adhesions (postprocedural) (postinfection); R13.10 Dysphagia, unspecified; E11.22 Type 2 diabetes mellitus with diabetic chronic kidney disease; N18.3 Chronic kidney disease, stage 3 (moderate); I50.9 Heart failure, unspecified; E11.65 Type 2 diabetes mellitus with hyperglycemia; K21.9 Gastro-esophageal reflux disease without esophagitis; F01.50 Vascular dementia, unspecified severity, without behavioral disturbance, psychotic disturbance, mood disturbance, and anxiety; K20.9 Esophagitis, unspecified; K44.9 Diaphragmatic hernia without obstruction or gangrene; M24.50 Contracture, unspecified joint; E78.00 Pure hypercholesterolemia, unspecified; E83.41 Hypermagnesemia; E83.42 Hypomagnesemia; Z68.21 Body mass index [BMI] 21.0-21.9, adult; Z79.82 Long term (current) use of aspirin; Z79.51 Long term (current) use of inhaled steroids
CPT/HCPCS: 36415; 36430; 51702; 71045; 74176; 76000; 80048; 80053; 80076; 80170; 81003; 82962; 83605; 83690; 83735; 83880; 84100; 84145; 84478; 84484; 85014; 85018; 85025; 85610; 86850; 86900; 86901; 87040; 87070; 87077; 87086; 87088; 87186; 87205; 88305; 88312; 94760; 96361; 96365; 96375; 99285; C9113; J0360; J0696; J1450; J1580; J1642; J1644; J1650; J1940; J2270; J2370; J2405; J2704; J2710; J3010; J3590; J7030; P9016

== ENCOUNTER 2018-11-28 14:58 | Emergency (ER) | payer OTHER ==
--- OUTSIDE RECORDS SUMMARY | 2018-11-28 15:01 | XMS REPORT | Clinical Summary ---
:1940 Author Organization [facility] Address [address] [place] [address] Care Team Providers Name Role Phone Cielo [...] Date Type Specialty Care Team Description 08/10/[address] [facility] Internal [place], Anemia, unspecified - Encounter Medicine MD Kiersten type 08/11/2018 Silas Joyner III, MD 07/13/2018 Surgery Gastroenterology Malik Gonsales UPPER ENDOSCOPY MD Juan Manuel 07/13/2018 Anesthesia Event Gastroenterology Mita Banuelos MD 07/11/[address] [facility] Internal Formerly [facility], [place] Gastrointestinal hemorrhage associated with gastrojejunal ulcer; - Encounter Medicine MD Ama Abdominal wall cellulitis; 07/15/2018 Tazn, History of CVA with residual deficit; [place] Severe protein-calorie malnutrition (HCC); MD Daniel Sacral decubitus ulcer, stage III (HCC); Donovan Ledezmaison Blood loss anemia; MD Pippa Gastrointestinal hemorrhage, unspecified gastrointestinal hemorrhage type after 11/27/2017 Social History Tobacco Use Types Packs/Day Years Used Date Unknown If Ever Smoked Sex Assigned at Date Recorded Not on file Job Start Date Occupation Industry Not on file Not on file Not on file Travel History Travel Start Travel End No recent travel history available. Last Filed Vital Signs Vital Sign Reading Time Taken Blood Pressure 144/66 08/11/2018 3:08 PM BIOMETRICS TECHNICIAN Pulse 92 08/11/2018 3:08 PM BIOMETRICS TECHNICIAN Temperature 35.6 C (96 F) 08/11/2018 3:08 PM BIOMETRICS TECHNICIAN Respiratory Rate 18 08/11/2018 3:08 PM BIOMETRICS TECHNICIAN Oxygen Saturation 95% 08/11/2018 3:08 PM BIOMETRICS TECHNICIAN Inhaled Oxygen Concentration 21% 07/14/2018 3:52 PM BIOMETRICS TECHNICIAN Weight 60.8 kg (134 lb 0.6 oz) 08/10/2018 5:00 PM BIOMETRICS TECHNICIAN Height - - Body Mass Index - - Plan of Treatment Not on file Procedures Procedure Name Priority Date/Time Associated Comments Diagnosis RHYTHM STRIP - SCAN 10/15/2018 9:20 AM CDT HEMOGLOBIN AND Routine 08/11/2018 12:31 Results for this HEMATOCRIT PM BIOMETRICS TECHNICIAN procedure are in the results section. POCT-GLUCOSE METER Routine 08/11/2018 11:51 Results for this AM BIOMETRICS TECHNICIAN procedure are in the results section. POCT-GLUCOSE METER Routine 08/11/2018 6:16 Results for this AM BIOMETRICS TECHNICIAN procedure are in the results section. CBC W/PLT COUNT & AUTO Routine 08/11/2018 1:57 Results for this DIFFERENTIAL AM BIOMETRICS TECHNICIAN procedure are in the results section. CBC W/PLT COUNT & AUTO Routine 08/11/2018 1:57 Results for this DIFFERENTIAL AM BIOMETRICS TECHNICIAN procedure are in the results section. PHOSPHORUS Routine 08/11/2018 1:57 Results for this AM BIOMETRICS TECHNICIAN procedure are in the results section. MAGNESIUM Routine 08/11/2018 1:57 Results for this AM BIOMETRICS TECHNICIAN procedure are in the results section. CALCIUM, IONIZED Routine 08/11/2018 1:57 Results for this AM BIOMETRICS TECHNICIAN procedure are in the results section. HEMOGLOBIN A1C Routine 08/11/2018 1:57 Results for this AM BIOMETRICS TECHNICIAN procedure are in the results section. BASIC METABOLIC PANEL Routine 08/11/2018 1:57 Results for this (7) AM BIOMETRICS TECHNICIAN procedure are in the results section. HEMOGLOBIN AND Routine 08/11/2018 1:57 Results for this HEMATOCRIT AM BIOMETRICS TECHNICIAN procedure are in the results section. POCT-GLUCOSE METER Routine 08/11/2018 1:35 Results for this AM BIOMETRICS TECHNICIAN procedure are in the results section. POCT-GLUCOSE METER Routine 08/10/2018 10:54 Results for this PM BIOMETRICS TECHNICIAN procedure are in the results section. CBC W/PLT COUNT & AUTO STAT 08/10/2018 6:20 Results for this DIFFERENTIAL PM BIOMETRICS TECHNICIAN procedure are in the results section. HEMOGLOBIN AND Routine 08/10/2018 6:20 Results for this HEMATOCRIT PM BIOMETRICS TECHNICIAN procedure are in the results section. HEMOGLOBIN A1C AP Routine 08/10/2018 6:20 Results for this PM BIOMETRICS TECHNICIAN procedure are in the results section. PHOSPHORUS STAT 08/10/2018 6:20 Results for this PM BIOMETRICS TECHNICIAN procedure are in the results section. MAGNESIUM STAT 08/10/2018 6:20 Results for this PM BIOMETRICS TECHNICIAN procedure are in the results section. COMPREHENSIVE STAT 08/10/2018 6:20 Results for this METABOLIC PANEL PM BIOMETRICS TECHNICIAN procedure are in the results section. CBC W/PLT COUNT & AUTO STAT 08/10/2018 6:20 Results for this DIFFERENTIAL PM BIOMETRICS TECHNICIAN procedure are in the results section. POCT-GLUCOSE METER Routine 08/10/2018 4:38 Results for this PM BIOMETRICS TECHNICIAN procedure are in the results section. RHYTHM STRIP - SCAN 08/02/2018 8:20 AM BIOMETRICS TECHNICIAN TRANSFUSION SERVICE 07/16/2018 6:01 REPORT - SCAN PM BIOMETRICS TECHNICIAN PREPARE LEUKO-REDUCED Routine 07/15/2018 11:54 Results for this RBC PM BIOMETRICS TECHNICIAN procedure are in the results section. TRANSFUSION SERVICE 07/15/2018 6:01 REPORT - SCAN PM BIOMETRICS TECHNICIAN POCT-GLUCOSE METER Routine 07/15/2018 8:18 Results for this AM BIOMETRICS TECHNICIAN procedure are in the results section. CBC W/PLT COUNT & AUTO Routine 07/15/2018 7:11 Results for this DIFFERENTIAL AM BIOMETRICS TECHNICIAN procedure are in the results section. BASIC METABOLIC PANEL Routine 07/15/2018 7:11 Results for this (7) AM BIOMETRICS TECHNICIAN procedure are in the results section. HAPTOGLOBIN Routine 07/15/2018 7:11 Results for this AM BIOMETRICS TECHNICIAN procedure are in the results section. CBC W/PLT COUNT & AUTO Routine 07/15/2018 7:11 Results for this DIFFERENTIAL AM BIOMETRICS TECHNICIAN procedure are in the results section. POCT-GLUCOSE METER Routine 07/15/2018 6:37 Results for this AM BIOMETRICS TECHNICIAN procedure are in the results section. POCT-GLUCOSE METER Routine 07/14/2018 11:36 Results for this PM BIOMETRICS TECHNICIAN procedure are in the results section. POCT-GLUCOSE METER Routine 07/14/2018 5:23 Results for this PM BIOMETRICS TECHNICIAN procedure are in the results section. BASIC METABOLIC PANEL Routine 07/14/2018 3:47 Results for this (7) PM BIOMETRICS TECHNICIAN procedure are in the results section. PERIPHERAL BLOOD SMEAR AP Routine 07/14/2018 3:47 Results for this - PATHOLOGIST REVIEW PM BIOMETRICS TECHNICIAN procedure are in the results section. RETICULOCYTE COUNT Routine 07/14/2018 3:47 Results for this PM BIOMETRICS TECHNICIAN procedure are in the results section. CBC W/PLT COUNT & AUTO Routine 07/14/2018 1:03 Results for this DIFFERENTIAL PM BIOMETRICS TECHNICIAN procedure are in the results section. HEPATIC FUNCTION PANEL Routine 07/14/2018 1:03 Results for this PM BIOMETRICS TECHNICIAN procedure are in the results section. CBC W/PLT COUNT & AUTO Routine 07/14/2018 1:03 Results for this DIFFERENTIAL PM BIOMETRICS TECHNICIAN procedure are in the results section. LACTATE DEHYDROGENASE Routine 07/14/2018 1:03 Results for this (LDH) PM BIOMETRICS TECHNICIAN procedure are in the results section. TRANSFUSE Routine 07/14/2018 12:32 LEUKO-REDUCED RED PM BIOMETRICS TECHNICIAN BLOOD CELLS POCT-GLUCOSE METER Routine 07/14/2018 12:01 Results for this PM BIOMETRICS TECHNICIAN procedure are in the results section. VANCOMYCIN LEVEL, Routine 07/14/2018 8:37 Results for this RANDOM AM BIOMETRICS TECHNICIAN procedure are in the results section. POCT-GLUCOSE METER Routine 07/14/2018 6:45 Results for this AM BIOMETRICS TECHNICIAN procedure are in the results section. CBC W/PLT COUNT & AUTO Routine 07/14/2018 6:10 Results for this DIFFERENTIAL AM BIOMETRICS TECHNICIAN procedure are in the results section. MAGNESIUM Routine 07/14/2018 6:10 Results for this AM BIOMETRICS TECHNICIAN procedure are in the results section. BASIC METABOLIC PANEL Routine 07/14/2018 6:10 Results for this (7) AM BIOMETRICS TECHNICIAN procedure are in the results section. CBC W/PLT COUNT & AUTO Routine 07/14/2018 6:10 Results for this DIFFERENTIAL AM BIOMETRICS TECHNICIAN procedure are in the results section. POCT-GLUCOSE METER Routine 07/14/2018 1:16 Results for this AM BIOMETRICS TECHNICIAN procedure are in the results section. VANCOMYCIN LEVEL, Timed 07/13/2018 9:11 Results for this TROUGH PM BIOMETRICS TECHNICIAN procedure are in the results section. TRANSFUSION SERVICE 07/13/2018 6:03 REPORT - SCAN PM BIOMETRICS TECHNICIAN POCT-GLUCOSE METER Routine 07/13/2018 5:42 Results for this PM BIOMETRICS TECHNICIAN procedure are in the results section. POCT-GLUCOSE METER Routine 07/13/2018 3:39 Results for this PM BIOMETRICS TECHNICIAN procedure are in the results section. REPORT OF PROCEDURE - 07/13/2018 3:20 ENDOSCOPY URL PM BIOMETRICS TECHNICIAN UPPER ENDOSCOPY 07/13/2018 3:00 Melena PM BIOMETRICS TECHNICIAN POCT-GLUCOSE METER Routine 07/13/2018 11:58 Results for this AM BIOMETRICS TECHNICIAN procedure are in the results section. (CELLAVISION MANUAL Routine 07/13/2018 5:54 Results for this DIFF) AM BIOMETRICS TECHNICIAN procedure are in the results section. CBC W/PLT COUNT & AUTO Routine 07/13/2018 5:54 Results for this DIFFERENTIAL AM BIOMETRICS TECHNICIAN procedure are in the results section. MAGNESIUM Routine 07/13/2018 5:54 Results for this AM BIOMETRICS TECHNICIAN procedure are in the results section. BASIC METABOLIC PANEL Routine 07/13/2018 5:54 Results for this (7) AM BIOMETRICS TECHNICIAN procedure are in the results section. CBC W/PLT COUNT & AUTO Routine 07/13/2018 5:54 Results for this DIFFERENTIAL AM BIOMETRICS TECHNICIAN procedure are in the results section. POCT-GLUCOSE METER Routine 07/13/2018 5:49 Results for this AM BIOMETRICS TECHNICIAN procedure are in the results section. POCT-GLUCOSE METER Routine 07/13/2018 12:11 Results for this AM BIOMETRICS TECHNICIAN procedure are in the results section. POCT-GLUCOSE METER Routine 07/12/2018 6:40 Results for this PM BIOMETRICS TECHNICIAN procedure are in the results section. POCT-GLUCOSE METER Routine 07/12/2018 12:43 Results for this PM BIOMETRICS TECHNICIAN procedure are in the results section. ECG 12-LEAD Routine 07/12/2018 9:22 Results for this AM BIOMETRICS TECHNICIAN procedure are in the results section. POCT-GLUCOSE METER Routine 07/12/2018 7:37 Results for this AM BIOMETRICS TECHNICIAN procedure are in the results section. (CELLAVISION MANUAL Routine 07/12/2018 6:21 Results for this DIFF) AM BIOMETRICS TECHNICIAN procedure are in the results section. CBC W/PLT COUNT & AUTO Routine 07/12/2018 6:21 Results for this DIFFERENTIAL AM BIOMETRICS TECHNICIAN procedure are in the results section. TYPE AND SCREEN, Routine 07/12/2018 6:21 Results for this AUTOMATED AM BIOMETRICS TECHNICIAN procedure are in the results section. MAGNESIUM Routine 07/12/2018 6:21 Results for this AM BIOMETRICS TECHNICIAN procedure are in the results section. BASIC METABOLIC PANEL Routine 07/12/2018 6:21 Results for this (7) AM BIOMETRICS TECHNICIAN procedure are in the results section. CBC W/PLT COUNT & AUTO Routine 07/12/2018 6:21 Results for this DIFFERENTIAL AM BIOMETRICS TECHNICIAN procedure are in the results section. after 11/27/2017 Results RHYTHM STRIP - SCAN (10/15/2018 9:20 AM CDT)Only the most recent of2 resultswithin the time period is included. Narrative Performed At Hemoglobin and hematocrit (08/11/2018 12:31 PM BIOMETRICS TECHNICIAN)Only the most recent of3 resultswithin the time period is included. Hemoglobin 9.2 (L) 13.7 - 17.5 GM/DL [facility] Hematocrit 30.1 (L) 40.1 - 51.0 % [facility] Specimen Blood Performing Organization Address City/[facility] Phone Number [address] [address] [place] POC-Glucose meter (08/11/2018 11:51 AM BIOMETRICS TECHNICIAN)Only the most recent of20 resultswithin the time period is included. POC-Glucose Meter 98Comment: TESTED AT 70 - 110 mg/dL [address] [address] Specimen Blood Performing Organization Address City/[facility] Phone Number [address] [address] [place] Calcium, Ionized (08/11/2018 1:57 AM BIOMETRICS TECHNICIAN) Calcium, Ion 1.09 (L) 1.12 - 1.27 mmol/L [facility] pH, Blood 7.44 [facility] Specimen Blood Performing Organization Address City/[facility] Phone Number [address] [address] [phone] [place] CBC with platelet count + automated diff (08/11/2018 1:57 AM BIOMETRICS TECHNICIAN)Only the most recent of7 resultswithin the time period is included. WBC 10.1 3.5 - 10.5 K/L [facility] RBC 3.54 (L) 4.63 - 6.08 M/L [facility] Hemoglobin 9.8 (L) 13.7 - 17.5 GM/DL [facility] Hematocrit 31.9 (L) 40.1 - 51.0 % [facility] MCV 90.1 79.0 - 92.2 fL [facility] MCH 27.7 25.7 - 32.2 pg [facility] MCHC 30.7 (L) 32.3 - 36.5 GM/DL [facility] RDW 17.7 (H) 11.6 - 14.4 % [facility] Platelets 209 150 - 450 K/CU MM [facility] MPV 9.9 9.4 - 12.4 fL [facility] nRBC 0 0 - 0 /100 WBC [facility] % Neutros 77 % [facility] % Lymphs 11 % [facility] % Monos 10 % [facility] % Eos 2 % [facility] % Baso 0 % [facility] # Neutros 7.78 (H) 1.78 - 5.38 K/L [facility] # Lymphs 1.07 (L) 1.32 - 3.57 K/L [facility] # Monos 1.04 (H) 0.30 - 0.82 K/L [facility] # Eos 0.17 0.04 - 0.54 K/L [facility] # Baso 0.02 0.01 - 0.08 K/L [facility] Immature Granulocytes-Relative 0 0 - 1 % [facility] Specimen Blood Performing Organization Address City/[facility]/Zipcode Phone Number [address] [address] [place] Phosphorus (08/11/2018 1:57 AM BIOMETRICS TECHNICIAN)Only the most recent of2 resultswithin the time period is included. Phosphorus 3.2 2.3 - 4.7 mg/dL [facility] Specimen Blood Performing Organization Address City/[facility]/Zipcode Phone Number [address] [address] [place] Magnesium (08/11/2018 1:57 AM BIOMETRICS TECHNICIAN)Only the most recent of5 resultswithin the time period is included. Magnesium 1.8 1.6 - 2.6 mg/dL [facility] Specimen Blood Performing Organization Address City/State/Zipcode Phone Number [address] [address] [place] Hemoglobin A1c (08/11/2018 1:57 AM BIOMETRICS TECHNICIAN)Only the most recent of2 resultswithin the time period is included. Hemoglobin A1C 6.4 (H) 4.3 - 6.1 % [facility] Specimen Blood Performing Organization Address [facility] Phone Number [address] [address] [place] Basic metabolic panel (08/11/2018 1:57 AM BIOMETRICS TECHNICIAN)Only the most recent of6 resultswithin the time period is included. Sodium 134 (L) 136 - 145 meq/L [facility] Potassium 4.2 3.5 - 5.1 meq/L [facility] Chloride 102 98 - 107 meq/L [facility] CO2 27 22 - 29 meq/L [facility] BUN 24 (H) 7 - 21 mg/dL [facility] Creatinine 1.31 (H) 0.57 - 1.25 mg/dL [facility] Glucose 77 70 - 105 mg/dL [facility] Calcium 8.6 8.4 - 10.2 mg/dL [facility] EGFR 64Comment: ESTIMATED GFR IS mL/min/1.73 sq m [facility] NOT ACCURATE CREATININE [facility] CLEARANCE IN PREDICTING GLOMERULAR FILTRATION RATE. ESTIMATED GFR IS NOT APPLICABLE FOR DIALYSIS PATIENTS. Specimen Blood Performing Organization Address City/[facility]/Zipcode Phone Number [address] [address] [place] Comprehensive metabolic panel (08/10/2018 6:20 PM BIOMETRICS TECHNICIAN) Protein, Total 7.4 6.0 - 8.3 gm/dL [facility] Albumin 2.1 (L) 3.5 - 5.0 g/dL [facility] Alkaline Phosphatase 142 40 - 150 U/L [facility] Total Bilirubin 0.2 0.2 - 1.2 mg/dL [facility] Sodium 136 136 - 145 meq/L [facility] Potassium 4.0 3.5 - 5.1 meq/L [facility] Chloride 102 98 - 107 meq/L [facility] CO2 29 22 - 29 meq/L [facility] BUN 27 (H) 7 - 21 mg/dL [facility] Creatinine 1.33 (H) 0.57 - 1.25 mg/dL [facility] Glucose 51 (L) 70 - 105 mg/dL [facility] Calcium 8.6 8.4 - 10.2 mg/dL [facility] AST 37 (H) 5 - 34 U/L [facility] ALT 27 6 - 55 U/L [facility] EGFR 63Comment: ESTIMATED GFR mL/min/1.73 sq m [facility] IS NOT ACCURATE [facility] CREATININE CLEARANCE IN PREDICTING GLOMERULAR FILTRATION RATE. ESTIMATED GFR IS NOT APPLICABLE FOR DIALYSIS PATIENTS. Specimen Blood Performing Organization Address City/State/Zipcode Phone Number [facility] [address] [place] [address] [phone] [place] TRANSFUSION SERVICE REPORT - SCAN (07/16/2018 6:01 PM BIOMETRICS TECHNICIAN)Only the most recent of3 resultswithin the time period is included. Narrative Performed At Prepare Leuko-Red RBC (07/15/2018 11:54 PM BIOMETRICS TECHNICIAN) CROSSMATCH COMPATIBLE [place] Unit ABO O Pos [place] [place] UNIT NUMBER [id number] [place] Status TRANSFUSED [place] Blood Bank Product RED BLOOD CELLS [place] PRODUCT CODE [id number] [place] Specimen Other Performing Organization Address [facility] Phone Number [employer] Haptoglobin (07/15/2018 7:11 AM BIOMETRICS TECHNICIAN) Haptoglobin 185 14 - 258 mg/dL [facility] Specimen Blood Performing Organization Address [facility] Phone Number [address] [address] [phone] [place] Peripheral Blood Smear - Path Review (07/14/2018 3:47 PM BIOMETRICS TECHNICIAN) RBC Morphology Polychromasia [facility] Anisocytosis [facility] Poikilocytosis WBC Morphology Toxic Granulation [facility] Pathologist Review Cell counts confirmed. [facility] Pathologist: Rafaela Dowell M.D. [facility] (electronic signature) [facility] Specimen Blood Performing Organization Address [facility] Phone Number [address] [address] [place] Reticulocyte count (07/14/2018 3:47 PM BIOMETRICS TECHNICIAN) % Retic 2.3 (H) 0.5 - 1.8 % [facility] Specimen Blood Performing Organization Address [facility] Phone Number [address] [address] [place] Lactate dehydrogenase (LDH) (07/14/2018 1:03 PM BIOMETRICS TECHNICIAN) LDH 338 (H)Comment: Specimen 125 - 220 U/L [facility] slightly hemolyzed [facility] Specimen Blood Performing Organization Address [facility] Phone Number [address] [address] [place] Hepatic function panel (07/14/2018 1:03 PM BIOMETRICS TECHNICIAN) Protein, Total 4.8 (L)Comment: Specimen 6.0 - 8.3 gm/dL [facility] hemolyzed [facility] Albumin 1.2 (L)Comment: Specimen 3.5 - 5.0 g/dL [facility] hemolyzed [facility] Total Bilirubin 0.2Comment: Specimen 0.2 - 1.2 mg/dL [facility] Bilirubin, Direct 0.1Comment: Specimen 0.1 - 0.5 mg/dL [facility] hemolyzed [facility] Alkaline Phosphatase 74 40 - 150 U/L [facility] AST 38 (H)Comment: Specimen 5 - 34 U/L [facility] hemolyzed [facility] ALT 19Comment: Specimen 6 - 55 U/L [facility] Specimen Blood Performing Organization Address City/[facility] Phone Number [address] [address] [place] Transfuse Leuko-Red RBC (07/14/2018 12:32 PM BIOMETRICS TECHNICIAN)Only the most recent of2 resultswithin the time period is included.Vancomycin level, random (07/14/2018 8:37 AM BIOMETRICS TECHNICIAN) Vancomycin Rm 22.6 ug/mL [facility] Specimen Blood Narrative Performed At Reference Range: No Normals [facility] Performing Organization Address [facility] Phone Number [address] [address] [phone] CENTER Vancomycin level, trough (07/13/2018 9:11 PM BIOMETRICS TECHNICIAN) Vancomycin Tr 26.3 (H) 10.0 - 20.0 ug/mL [facility] Specimen Blood Narrative Performed At WAIT FOR LEVEL TO RETURN BEFORE GIVING DOSE. [facility] If vancomycin trough level > 20, HOLD dose and contact MD and pharmacist. Performing Organization Address City/[facility]/Zipcode Phone Number [facility] [address] [place] [address] CENTER REPORT OF PROCEDURE - ENDOSCOPY URL (07/13/2018 3:20 PM BIOMETRICS TECHNICIAN) Narrative Performed At Manual Differential (07/13/2018 5:54 AM BIOMETRICS TECHNICIAN)Only the most recent of2 resultswithin the time period is included. % Neutros 89 % [facility] % Lymphs 5 % [facility] % Monos 5 % [facility] % Atypical Lymphs 1 (H) 0 - 0 % [facility] # Neutros 11.21 (H) 1.78 - 5.38 K/ul [facility] # Lymphs 0.63 (L) 1.32 - 3.57 K/ul [facility] # Monos 0.63 0.30 - 0.82 K/uL [facility] # Atypical Lymphs 0.13 (H) 0.00 - 0.00 K/uL [facility] Total Counted 100 [facility] Platelet Morphology Normal [facility] Smudge Cells Present [facility] Anisocytosis 1+ few [facility] Poikilocytes 2+ moderate [facility] [place] Cells 1+ few [facility] Platelet Conc Adequate [facility] Specimen Blood Narrative Performed At Received comment: [facility] User comments: Slide comments: Performing Organization Address City/State/Zipcode Phone Number [facility] [address] [place] [address] [place] ECG 12 lead (07/12/2018 9:22 AM BIOMETRICS TECHNICIAN) Specimen Narrative Performed At Ventricular Rate 100 BPM GE MUSE Atrial Rate 100 BPM P-R Interval 148 ms QRS Duration 90 ms Q-T Interval 344 ms QTC Calculation(Bazett) 443 ms P [place] 59 degrees R [place] -12 degrees T [place] 9 degrees Sinus rhythm with premature artial complexes Inferior infarct , age undetermined Abnormal ECG No previous ECGs available Confirmed by MD MARYJANE, IHAB ([id number]) on 07/13/2018 7:29:33 AM Procedure Note Interface, External Ris In - 07/13/2018 7:29 AM BIOMETRICS TECHNICIAN Ventricular Rate 100 BPM Atrial Rate 100 BPM P-R Interval 148 ms QRS Duration 90 ms Q-T Interval 344 ms QTC Calculation(Bazett) 443 ms P [place] 59 degrees R [place] -12 degrees T [place] 9 degrees Sinus rhythm with premature artial complexes Inferior infarct , age undetermined Abnormal ECG No previous ECGs available Confirmed by MD MARYJANE, IHAB ([id number]) on 07/13/2018 7:29:33 AM Performing Organization Address City/State/Zipcode Phone Number GE MUSE Type and screen, automated (07/12/2018 6:21 AM BIOMETRICS TECHNICIAN) ABO/RH AUTOMATED (BEAKER) O POSITIVE [facility] Ab Scrn NEGATIVE [facility] Specimen Blood Performing Organization Address City/State/Zipcode Phone Number [facility] [address] [place] [address] [phone] after 11/27/2017 Insurance Payer Benefit Plan / Group Subscriber ID Type Phone Address MEDICARE MEDICARE A B xxxxxxxxxxx Medicare MEDICAID MEDICAID [facility] [facility] xxxxxxxxx Medicaid Advance Directives For more information, please contact:[facility], [place] [phone] Code Status Date Activated Date Inactivated Comments Full Code 08/10/2018 8:12 PM This code status was determined by: Patient Full Code 07/11/2018 10:34 PM 08/10/2018 4:09 PM This code status was determined by: Patient
--- OUTSIDE RECORDS SUMMARY | 2018-11-28 15:02 | XMS REPORT ---
:1940 [facility] Address [address] [place] [id number] Care Team Providers Name Role Phone RODNEY [...] Reference Range Comments HEMOGLOBIN A1C (BEAKER) (test ahza=812) 6.4 % 4.3-6.1 HEMOGLOBIN [id number] 13:06:00 Test Item Value Reference Range Comments HEMOGLOBIN A1C (BEAKER) (test defe=095) 6.3 % 4.3-6.1 HEMOGLOBIN AND [id number] 12:45:00 Test Item Value Reference Range Comments HEMOGLOBIN (BEAKER) (test cugb=159) 9.2 GM/DL 13.7-17.5 HEMATOCRIT (BEAKER) (test wgpg=637) 30.1 % 40.1-51.0 POCT-GLUCOSE [id number] 12:00:00 Test Item Value Reference Range Comments POC-GLUCOSE METER (BEAKER) 98 mg/dL 70-110 TESTED AT [place] [id number] [facility] (test hkok=3504) [facility] [address] POCT-GLUCOSE [id number] 06:19:00 Test Item Value Reference Range Comments POC-GLUCOSE METER (BEAKER) 120 mg/dL 70-110 TESTED AT [place] [id number] [facility] (test hfyo=9679) [facility] [address] [id number] 02:40:00 Test Item Value Reference Range Comments PHOSPHORUS (BEAKER) (test stec=882) 3.2 mg/dL 2.3-4.7 [id number] 02:40:00 Test Item Value Reference Range Comments MAGNESIUM (BEAKER) (test ngeg=949) 1.8 mg/dL 1.6-2.6 BASIC METABOLIC [id number] 02:40:00 Test Item Value Reference Range Comments SODIUM (BEAKER) (test 134 meq/L 136-145 gidy=659) POTASSIUM (BEAKER) (test 4.2 meq/L 3.5-5.1 mltf=618) CHLORIDE (BEAKER) (test 102 meq/L 98-107 beeu=710) CO2 (BEAKER) (test 27 meq/L 22-29 mqnr=802) BLOOD UREA NITROGEN 24 mg/dL 7-21 (BEAKER) (test tkaa=590) CREATININE (BEAKER) (test 1.31 mg/dL 0.57-1.25 qxpm=657) GLUCOSE RANDOM (BEAKER) 77 mg/dL 70-105 (test ghrm=349) CALCIUM (BEAKER) (test 8.6 mg/dL 8.4-10.2 dops=547) EGFR (BEAKER) (test 64 mL/min/1.73 sq m ESTIMATED GFR IS NOT vlee=0317) ACCURATE CREATININE CLEARANCE IN PREDICTING GLOMERULAR FILTRATION RATE. ESTIMATED GFR IS NOT APPLICABLE FOR DIALYSIS PATIENTS. CALCIUM, [id number] 02:18:00 Test Item Value Reference Range Comments CALCIUM IONIZED (BEAKER) (test rnks=062) 1.09 mmol/L 1.12-1.27 PH, BLOOD (BEAKER) (test fdgq=5019) 7.44 HEMOGLOBIN AND [id number] 02:10:00 Test Item Value Reference Range Comments HEMOGLOBIN (BEAKER) (test ozbs=428) 9.8 GM/DL 13.7-17.5 HEMATOCRIT (BEAKER) (test bwnu=177) 31.9 % 40.1-51.0 CBC W/PLT COUNT & AUTO [id number] 02:10:00 Test Item Value Reference Range Comments WHITE BLOOD CELL COUNT (BEAKER) (test wokr=220) 10.1 K/ L 3.5-10.5 RED BLOOD CELL COUNT (BEAKER) (test huoy=341) 3.54 M/ L 4.63-6.08 HEMOGLOBIN (BEAKER) (test xvwx=534) 9.8 GM/DL 13.7-17.5 HEMATOCRIT (BEAKER) (test vbaj=650) 31.9 % 40.1-51.0 MEAN CORPUSCULAR VOLUME (BEAKER) (test dlgb=373) 90.1 fL 79.0-92.2 MEAN CORPUSCULAR HEMOGLOBIN (BEAKER) (test 27.7 pg 25.7-32.2 hwda=393) MEAN CORPUSCULAR HEMOGLOBIN CONC (BEAKER) (test 30.7 GM/DL 32.3-36.5 whiu=519) RED CELL DISTRIBUTION WIDTH (BEAKER) (test 17.7 % 11.6-14.4 jvir=136) PLATELET COUNT (BEAKER) (test xxwp=126) 209 K/CU MM 150-450 MEAN PLATELET VOLUME (BEAKER) (test lerf=565) 9.9 fL 9.4-12.4 NUCLEATED RED BLOOD CELLS (BEAKER) (test 0 /100 WBC 0-0 pgbw=563) NEUTROPHILS RELATIVE PERCENT (BEAKER) (test 77 % qgtj=270) LYMPHOCYTES RELATIVE PERCENT (BEAKER) (test 11 % qrvr=730) MONOCYTES RELATIVE PERCENT (BEAKER) (test 10 % xcel=942) EOSINOPHILS RELATIVE PERCENT (BEAKER) (test 2 % qzwi=585) BASOPHILS RELATIVE PERCENT (BEAKER) (test 0 % eozm=576) NEUTROPHILS ABSOLUTE COUNT (BEAKER) (test 7.78 K/ L 1.78-5.38 zlhq=745) LYMPHOCYTES ABSOLUTE COUNT (BEAKER) (test 1.07 K/ L 1.32-3.57 vfnh=486) MONOCYTES ABSOLUTE COUNT (BEAKER) (test 1.04 K/ L 0.30-0.82 xwsq=889) EOSINOPHILS ABSOLUTE COUNT (BEAKER) (test 0.17 K/ L 0.04-0.54 rudo=150) BASOPHILS ABSOLUTE COUNT (BEAKER) (test 0.02 K/ L 0.01-0.08 jmel=106) IMMATURE GRANULOCYTES-RELATIVE PERCENT (BEAKER) 0 % 0-1 (test yzbb=9567) POCT-GLUCOSE [id number] 01:36:00 Test Item Value Reference Range Comments POC-GLUCOSE METER (BEAKER) 97 mg/dL 70-110 TESTED AT [facility] [address] [facility] (test bjgj=8000) [facility] [address] POCT-GLUCOSE [id number] 22:56:00 Test Item Value Reference Range Comments POC-GLUCOSE METER (BEAKER) 70 mg/dL 70-110 TESTED AT [facility] [address] (test hqcn=6966) [facility] [address] [id number] 19:59:00 Test Item Value Reference Range Comments PHOSPHORUS (BEAKER) (test ybyw=882) 3.2 mg/dL 2.3-4.7 [id number] 19:59:00 Test Item Value Reference Range Comments MAGNESIUM (BEAKER) (test xuvm=538) 1.9 mg/dL 1.6-2.6 COMPREHENSIVE METABOLIC [id number] 19:59:00 Test Item Value Reference Range Comments TOTAL PROTEIN (BEAKER) 7.4 gm/dL 6.0-8.3 (test yqww=326) ALBUMIN (BEAKER) (test 2.1 g/dL 3.5-5.0 doaa=2866) ALKALINE PHOSPHATASE 142 U/L 40-150 (BEAKER) (test onfd=079) BILIRUBIN TOTAL (BEAKER) 0.2 mg/dL 0.2-1.2 (test mwbz=071) SODIUM (BEAKER) (test 136 meq/L 136-145 utaz=287) POTASSIUM (BEAKER) (test 4.0 meq/L 3.5-5.1 vmfd=422) CHLORIDE (BEAKER) (test 102 meq/L 98-107 dius=411) CO2 (BEAKER) (test 29 meq/L 22-29 hicm=399) BLOOD UREA NITROGEN 27 mg/dL 7-21 (BEAKER) (test xuki=746) CREATININE (BEAKER) (test 1.33 mg/dL 0.57-1.25 uucd=021) GLUCOSE RANDOM (BEAKER) 51 mg/dL 70-105 (test ppwm=577) CALCIUM (BEAKER) (test 8.6 mg/dL 8.4-10.2 rkpv=946) AST (SGOT) (BEAKER) (test 37 U/L 5-34 oqky=796) ALT (SGPT) (BEAKER) (test 27 U/L 6-55 xusq=494) EGFR (BEAKER) (test 63 mL/min/1.73 sq m ESTIMATED GFR IS NOT zqth=6556) ACCURATE CREATININE CLEARANCE IN PREDICTING GLOMERULAR FILTRATION RATE. ESTIMATED GFR IS NOT APPLICABLE FOR DIALYSIS PATIENTS. CBC W/PLT COUNT & AUTO [id number] 19:45:00 Test Item Value Reference Range Comments WHITE BLOOD CELL COUNT (BEAKER) (test rokm=399) 10.5 K/ L 3.5-10.5 RED BLOOD CELL COUNT (BEAKER) (test egvl=031) 3.65 M/ L 4.63-6.08 HEMOGLOBIN (BEAKER) (test lpmo=230) 10.2 GM/DL 13.7-17.5 HEMATOCRIT (BEAKER) (test faap=031) 33.6 % 40.1-51.0 MEAN CORPUSCULAR VOLUME (BEAKER) (test xmai=191) 92.1 fL 79.0-92.2 MEAN CORPUSCULAR HEMOGLOBIN (BEAKER) (test 27.9 pg 25.7-32.2 cnwz=640) MEAN CORPUSCULAR HEMOGLOBIN CONC (BEAKER) (test 30.4 GM/DL 32.3-36.5 fjbp=800) RED CELL DISTRIBUTION WIDTH (BEAKER) (test 17.6 % 11.6-14.4 ntlt=041) PLATELET COUNT (BEAKER) (test ksvu=817) 213 K/CU MM 150-450 MEAN PLATELET VOLUME (BEAKER) (test wrwx=077) 10.7 fL 9.4-12.4 NUCLEATED RED BLOOD CELLS (BEAKER) (test 0 /100 WBC 0-0 qtkd=296) NEUTROPHILS RELATIVE PERCENT (BEAKER) (test 81 % yfqa=656) LYMPHOCYTES RELATIVE PERCENT (BEAKER) (test 8 % sytl=140) MONOCYTES RELATIVE PERCENT (BEAKER) (test 9 % juao=691) EOSINOPHILS RELATIVE PERCENT (BEAKER) (test 2 % jwxw=827) BASOPHILS RELATIVE PERCENT (BEAKER) (test 0 % tskw=660) NEUTROPHILS ABSOLUTE COUNT (BEAKER) (test 8.47 K/ L 1.78-5.38 rjgl=069) LYMPHOCYTES ABSOLUTE COUNT (BEAKER) (test 0.79 K/ L 1.32-3.57 sbpn=189) MONOCYTES ABSOLUTE COUNT (BEAKER) (test 0.96 K/ L 0.30-0.82 xsls=654) EOSINOPHILS ABSOLUTE COUNT (BEAKER) (test 0.22 K/ L 0.04-0.54 znpz=751) BASOPHILS ABSOLUTE COUNT (BEAKER) (test 0.03 K/ L 0.01-0.08 krsv=671) IMMATURE GRANULOCYTES-RELATIVE PERCENT (BEAKER) 0 % 0-1 (test fbis=4936) HEMOGLOBIN AND [id number] 19:43:00 Test Item Value Reference Range Comments HEMOGLOBIN (BEAKER) (test tqcl=634) 10.2 GM/DL 13.7-17.5 HEMATOCRIT (BEAKER) (test kyay=462) 33.6 % 40.1-51.0 POCT-GLUCOSE [id number] 16:53:00 Test Item Value Reference Range Comments POC-GLUCOSE METER (BEAKER) 83 mg/dL 70-110 TESTED AT [address] (test hjum=9048) [place] [id number] PERIPHERAL BLOOD SMEAR - PATHOLOGIST [id number] 11:31:00 Test Item Value Reference Range Comments RBC MORPHOLOGY (BEAKER) Polychromasia (test xskg=5851) RBC MORPHOLOGY (BEAKER) Anisocytosis (test ynxq=32563) RBC MORPHOLOGY (BEAKER) Poikilocytosis (test zrdm=06161) WBC MORPHOLOGY (BEAKER) Toxic Granulation (test qdiq=2250) PERIPHERAL SMR REVIEW Cell counts confirmed. (BEAKER) (test gbqu=9716) [id number] Rafaela Dowell M.D. (electronic (BEAKER) (test ilkf=8652) signature) POCT-GLUCOSE [id number] 08:24:00 Test Item Value Reference Range Comments POC-GLUCOSE METER (BEAKER) 236 mg/dL 70-110 TESTED AT [address] (test rcie=2695) [place] [id number] 07:35:00 Test Item Value Reference Range Comments HAPTOGLOBIN (BEAKER) (test blod=649) 185 mg/dL 14-258 BASIC METABOLIC [id number] 07:34:00 Test Item Value Reference Range Comments SODIUM (BEAKER) (test 141 meq/L 136-145 zstf=782) POTASSIUM (BEAKER) (test 4.2 meq/L 3.5-5.1 xnqf=575) CHLORIDE (BEAKER) (test 112 meq/L 98-107 hawb=460) CO2 (BEAKER) (test 26 meq/L 22-29 cvfj=510) BLOOD UREA NITROGEN 23 mg/dL 7-21 (BEAKER) (test pima=194) CREATININE (BEAKER) (test 1.23 mg/dL 0.57-1.25 hotb=820) GLUCOSE RANDOM (BEAKER) 186 mg/dL 70-105 (test xzqe=903) CALCIUM (BEAKER) (test 8.0 mg/dL 8.4-10.2 nmht=763) EGFR (BEAKER) (test 69 mL/min/1.73 sq m ESTIMATED GFR IS NOT gvue=1084) ACCURATE CREATININE CLEARANCE IN PREDICTING GLOMERULAR FILTRATION RATE. ESTIMATED GFR IS NOT APPLICABLE FOR DIALYSIS PATIENTS. CBC W/PLT COUNT & AUTO [id number] 07:21:00 Test Item Value Reference Range Comments WHITE BLOOD CELL COUNT (BEAKER) (test olsn=617) 8.9 K/ L 3.5-10.5 RED BLOOD CELL COUNT (BEAKER) (test nhhi=499) 3.26 M/ L 4.63-6.08 HEMOGLOBIN (BEAKER) (test ytjd=924) 9.1 GM/DL 13.7-17.5 HEMATOCRIT (BEAKER) (test efue=142) 29.6 % 40.1-51.0 MEAN CORPUSCULAR VOLUME (BEAKER) (test hmlf=348) 90.8 fL 79.0-92.2 MEAN CORPUSCULAR HEMOGLOBIN (BEAKER) (test 27.9 pg 25.7-32.2 wvpu=556) MEAN CORPUSCULAR HEMOGLOBIN CONC (BEAKER) (test 30.7 GM/DL 32.3-36.5 taid=714) RED CELL DISTRIBUTION WIDTH (BEAKER) (test 17.9 % 11.6-14.4 ngqw=603) PLATELET COUNT (BEAKER) (test puea=095) 211 K/CU MM 150-450 MEAN PLATELET VOLUME (BEAKER) (test orrx=719) 10.3 fL 9.4-12.4 NUCLEATED RED BLOOD CELLS (BEAKER) (test 0 /100 WBC 0-0 tjyk=907) NEUTROPHILS RELATIVE PERCENT (BEAKER) (test 73 % aiih=324) LYMPHOCYTES RELATIVE PERCENT (BEAKER) (test 12 % sxuw=461) MONOCYTES RELATIVE PERCENT (BEAKER) (test 12 % mvrj=086) EOSINOPHILS RELATIVE PERCENT (BEAKER) (test 2 % wauu=149) BASOPHILS RELATIVE PERCENT (BEAKER) (test 0 % njwh=880) NEUTROPHILS ABSOLUTE COUNT (BEAKER) (test 6.49 K/ L 1.78-5.38 hfup=244) LYMPHOCYTES ABSOLUTE COUNT (BEAKER) (test 1.11 K/ L 1.32-3.57 ciqv=413) MONOCYTES ABSOLUTE COUNT (BEAKER) (test 1.08 K/ L 0.30-0.82 bbcu=496) EOSINOPHILS ABSOLUTE COUNT (BEAKER) (test 0.19 K/ L 0.04-0.54 zilj=096) BASOPHILS ABSOLUTE COUNT (BEAKER) (test 0.02 K/ L 0.01-0.08 scjz=652) IMMATURE GRANULOCYTES-RELATIVE PERCENT (BEAKER) 0 % 0-1 (test akyg=8344) POCT-GLUCOSE [id number] 06:39:00 Test Item Value Reference Range Comments POC-GLUCOSE METER (BEAKER) 239 mg/dL 70-110 TESTED AT [address] (test bqjp=1661) [place] [address] POCT-GLUCOSE [id number] 23:40:00 Test Item Value Reference Range Comments POC-GLUCOSE METER (BEAKER) 234 mg/dL 70-110 TESTED AT [address] (test sqmr=0453) [place] [id number] POCT-GLUCOSE [id number] 17:26:00 Test Item Value Reference Range Comments POC-GLUCOSE METER (BEAKER) 257 mg/dL 70-110 TESTED AT [address] (test qeuc=5241) [facility] [address] BASIC METABOLIC [id number] 16:15:00 Test Item Value Reference Range Comments SODIUM (BEAKER) (test 140 meq/L 136-145 cyag=871) POTASSIUM (BEAKER) (test 4.6 meq/L 3.5-5.1 ijli=422) CHLORIDE (BEAKER) (test 111 meq/L 98-107 zari=788) CO2 (BEAKER) (test 25 meq/L 22-29 hjiy=841) BLOOD UREA NITROGEN 24 mg/dL 7-21 (BEAKER) (test uijn=142) CREATININE (BEAKER) (test 1.21 mg/dL 0.57-1.25 prhe=243) GLUCOSE RANDOM (BEAKER) 195 mg/dL 70-105 (test fjab=832) CALCIUM (BEAKER) (test 8.2 mg/dL 8.4-10.2 asdj=993) EGFR (BEAKER) (test 71 mL/min/1.73 sq m ESTIMATED GFR IS NOT jqyk=2497) ACCURATE CREATININE CLEARANCE IN PREDICTING GLOMERULAR FILTRATION RATE. ESTIMATED GFR IS NOT APPLICABLE FOR DIALYSIS PATIENTS. RETICULOCYTE [id number] 15:59:00 Test Item Value Reference Range Comments RETICULOCYTE COUNT PCT (BEAKER) (test bzmt=716) 2.3 % 0.5-1.8 HEPATIC FUNCTION [id number] 13:31:00 Test Item Value Reference Range Comments TOTAL PROTEIN (BEAKER) (test 4.8 gm/dL 6.0-8.3 Specimen slightly hemolyzed lnse=760) ALBUMIN (BEAKER) (test 1.2 g/dL 3.5-5.0 Specimen slightly hemolyzed almw=5531) BILIRUBIN TOTAL (BEAKER) (test 0.2 mg/dL 0.2-1.2 Specimen slightly hemolyzed bzzv=374) BILIRUBIN DIRECT (BEAKER) (test 0.1 mg/dL 0.1-0.5 Specimen slightly hemolyzed tpgk=210) ALKALINE PHOSPHATASE (BEAKER) 74 U/L 40-150 (test asrm=419) AST (SGOT) (BEAKER) (test 38 U/L 5-34 Specimen slightly hemolyzed mibi=588) ALT (SGPT) (BEAKER) (test 19 U/L 6-55 Specimen slightly hemolyzed qvss=383) LACTATE DEHYDROGENASE (LDH)[id number] 13:30:00 Test Item Value Reference Range Comments LACTATE DEHYDROGENASE (BEAKER) 338 U/L 125-220 Specimen slightly hemolyzed (test ccas=316) CBC W/PLT COUNT & AUTO [id number] 13:17:00 Test Item Value Reference Range Comments WHITE BLOOD CELL COUNT (BEAKER) (test mzhh=916) 11.2 K/ L 3.5-10.5 RED BLOOD CELL COUNT (BEAKER) (test ledi=434) 3.14 M/ L 4.63-6.08 HEMOGLOBIN (BEAKER) (test artn=500) 8.6 GM/DL 13.7-17.5 HEMATOCRIT (BEAKER) (test ocbq=465) 28.2 % 40.1-51.0 MEAN CORPUSCULAR VOLUME (BEAKER) (test oqxh=766) 89.8 fL 79.0-92.2 MEAN CORPUSCULAR HEMOGLOBIN (BEAKER) (test 27.4 pg 25.7-32.2 dbcq=386) MEAN CORPUSCULAR HEMOGLOBIN CONC (BEAKER) (test 30.5 GM/DL 32.3-36.5 atwt=527) RED CELL DISTRIBUTION WIDTH (BEAKER) (test 17.2 % 11.6-14.4 hhsg=975) PLATELET COUNT (BEAKER) (test fsgp=359) 196 K/CU MM 150-450 MEAN PLATELET VOLUME (BEAKER) (test ztpa=566) 10.2 fL 9.4-12.4 NUCLEATED RED BLOOD CELLS (BEAKER) (test 0 /100 WBC 0-0 snpc=459) NEUTROPHILS RELATIVE PERCENT (BEAKER) (test 79 % zzks=147) LYMPHOCYTES RELATIVE PERCENT (BEAKER) (test 9 % ldtz=188) MONOCYTES RELATIVE PERCENT (BEAKER) (test 11 % mrwe=454) EOSINOPHILS RELATIVE PERCENT (BEAKER) (test 1 % dgof=662) BASOPHILS RELATIVE PERCENT (BEAKER) (test 0 % phfx=241) NEUTROPHILS ABSOLUTE COUNT (BEAKER) (test 8.88 K/ L 1.78-5.38 roaa=869) LYMPHOCYTES ABSOLUTE COUNT (BEAKER) (test 0.96 K/ L 1.32-3.57 iabe=442) MONOCYTES ABSOLUTE COUNT (BEAKER) (test 1.26 K/ L 0.30-0.82 rjln=396) EOSINOPHILS ABSOLUTE COUNT (BEAKER) (test 0.06 K/ L 0.04-0.54 hael=382) BASOPHILS ABSOLUTE COUNT (BEAKER) (test 0.02 K/ L 0.01-0.08 ipse=782) IMMATURE GRANULOCYTES-RELATIVE PERCENT (BEAKER) 0 % 0-1 (test pohn=9692) POCT-GLUCOSE [id number] 12:30:00 Test Item Value Reference Range Comments POC-GLUCOSE METER (BEAKER) 193 mg/dL 70-110 TESTED AT [facility] [address] [facility] (test pwfi=5459) [place] [address] VANCOMYCIN LEVEL, [id number] 09:00:00 Test Item Value Reference Range Comments VANCOMYCIN RANDOM (BEAKER) (test mnzj=579) 22.6 ug/mL Reference Range: No [id number] 07:29:00 Test Item Value Reference Range Comments MAGNESIUM (BEAKER) (test alxo=196) 1.9 mg/dL 1.6-2.6 BASIC METABOLIC [id number] 07:29:00 Test Item Value Reference Range Comments SODIUM (BEAKER) (test 141 meq/L 136-145 ofay=649) POTASSIUM (BEAKER) (test 3.7 meq/L 3.5-5.1 psme=974) CHLORIDE (BEAKER) (test 113 meq/L 98-107 ezzg=811) CO2 (BEAKER) (test 23 meq/L 22-29 qtwi=621) BLOOD UREA NITROGEN 23 mg/dL 7-21 (BEAKER) (test oxcs=438) CREATININE (BEAKER) (test 1.11 mg/dL 0.57-1.25 wooz=278) GLUCOSE RANDOM (BEAKER) 100 mg/dL 70-105 (test ymba=173) CALCIUM (BEAKER) (test 8.2 mg/dL 8.4-10.2 zgju=986) EGFR (BEAKER) (test 78 mL/min/1.73 sq m ESTIMATED GFR IS NOT kdyv=4297) ACCURATE CREATININE CLEARANCE IN PREDICTING GLOMERULAR FILTRATION RATE. ESTIMATED GFR IS NOT APPLICABLE FOR DIALYSIS PATIENTS. CBC W/PLT COUNT & AUTO [id number] 07:00:00 Test Item Value Reference Range Comments WHITE BLOOD CELL COUNT (BEAKER) (test ohdf=518) 11.9 K/ L 3.5-10.5 RED BLOOD CELL COUNT (BEAKER) (test nwor=820) 2.36 M/ L 4.63-6.08 HEMOGLOBIN (BEAKER) (test imdd=808) 6.6 GM/DL 13.7-17.5 HEMATOCRIT (BEAKER) (test dkzm=838) 21.2 % 40.1-51.0 MEAN CORPUSCULAR VOLUME (BEAKER) (test exjo=610) 89.8 fL 79.0-92.2 MEAN CORPUSCULAR HEMOGLOBIN (BEAKER) (test 28.0 pg 25.7-32.2 nuao=046) MEAN CORPUSCULAR HEMOGLOBIN CONC (BEAKER) (test 31.1 GM/DL 32.3-36.5 njju=356) RED CELL DISTRIBUTION WIDTH (BEAKER) (test 18.6 % 11.6-14.4 aqvx=062) PLATELET COUNT (BEAKER) (test oiha=608) 210 K/CU MM 150-450 MEAN PLATELET VOLUME (BEAKER) (test rkjt=615) 10.7 fL 9.4-12.4 NUCLEATED RED BLOOD CELLS (BEAKER) (test 0 /100 WBC 0-0 ljsk=583) NEUTROPHILS RELATIVE PERCENT (BEAKER) (test 77 % ssst=066) LYMPHOCYTES RELATIVE PERCENT (BEAKER) (test 10 % rexf=544) MONOCYTES RELATIVE PERCENT (BEAKER) (test 12 % rawm=094) EOSINOPHILS RELATIVE PERCENT (BEAKER) (test 0 % oomq=508) BASOPHILS RELATIVE PERCENT (BEAKER) (test 0 % nbge=761) NEUTROPHILS ABSOLUTE COUNT (BEAKER) (test 9.19 K/ L 1.78-5.38 pcyp=911) LYMPHOCYTES ABSOLUTE COUNT (BEAKER) (test 1.21 K/ L 1.32-3.57 puxd=314) MONOCYTES ABSOLUTE COUNT (BEAKER) (test 1.38 K/ L 0.30-0.82 oboo=487) EOSINOPHILS ABSOLUTE COUNT (BEAKER) (test 0.03 K/ L 0.04-0.54 tbhe=268) BASOPHILS ABSOLUTE COUNT (BEAKER) (test 0.04 K/ L 0.01-0.08 rpod=677) IMMATURE GRANULOCYTES-RELATIVE PERCENT (BEAKER) 0 % 0-1 (test skiu=0800) POCT-GLUCOSE [id number] 06:47:00 Test Item Value Reference Range Comments POC-GLUCOSE METER (BEAKER) 128 mg/dL 70-110 TESTED AT [address] (test nxok=1732) [facility] [address] POCT-GLUCOSE [id number] 01:25:00 Test Item Value Reference Range Comments POC-GLUCOSE METER (BEAKER) 81 mg/dL 70-110 TESTED AT [address] (test hzti=9466) [facility] [address] VANCOMYCIN LEVEL, [id number] 21:59:00 Test Item Value Reference Range Comments VANCOMYCIN TROUGH (BEAKER) (test qxjd=921) 26.3 ug/mL 10.0-20.0 WAIT FOR LEVEL TO RETURN BEFORE GIVING DOSE. If vancomycin trough level > 20 , HOLD dose and contact MD and pharmacist.POCT-GLUCOSE [id number] 17:48:00 Test Item Value Reference Range Comments POC-GLUCOSE METER (BEAKER) 96 mg/dL 70-110 TESTED AT [address] (test qkns=8303) [facility] [address] POCT-GLUCOSE [id number] 15:40:00 Test Item Value Reference Range Comments POC-GLUCOSE METER (BEAKER) 106 mg/dL 70-110 TESTED AT [address] (test dqse=8336) [facility] [address] CBC W/PLT COUNT & AUTO [id number] 14:21:00 Test Item Value Reference Range Comments WHITE BLOOD CELL COUNT (BEAKER) (test ezsy=002) 12.6 K/ L 3.5-10.5 RED BLOOD CELL COUNT (BEAKER) (test hhwe=835) 2.64 M/ L 4.63-6.08 HEMOGLOBIN (BEAKER) (test pvxz=949) 7.3 GM/DL 13.7-17.5 HEMATOCRIT (BEAKER) (test kltn=767) 23.8 % 40.1-51.0 MEAN CORPUSCULAR VOLUME (BEAKER) (test edgt=031) 90.2 fL 79.0-92.2 MEAN CORPUSCULAR HEMOGLOBIN (BEAKER) (test 27.7 pg 25.7-32.2 xlfm=897) MEAN CORPUSCULAR HEMOGLOBIN CONC (BEAKER) (test 30.7 GM/DL 32.3-36.5 telf=484) RED CELL DISTRIBUTION WIDTH (BEAKER) (test 18.2 % 11.6-14.4 sbyo=301) PLATELET COUNT (BEAKER) (test gwzi=145) 225 K/CU MM 150-450 MEAN PLATELET VOLUME (BEAKER) (test tyhq=399) 10.6 fL 9.4-12.4 NUCLEATED RED BLOOD CELLS (BEAKER) (test 0 /100 WBC 0-0 plyr=784) (CELLAVISION MANUAL DIFF)[id number] 14:21:00 Test Item Value Reference Range Comments NEUTROPHILS - REL (CELLAVISION)(BEAKER) (test 89 % mcwc=3180) LYMPHOCYTES - REL (CELLAVISION)(BEAKER) (test 5 % xttl=9346) MONOCYTES - REL (CELLAVISION)(BEAKER) (test 5 % havm=4613) ATYPICAL LYMPHOCYTES - REL (CELLAVISION)(BEAKER) 1 % 0-0 (test urcb=7099) NEUTROPHILS - ABS (CELLAVISION)(BEAKER) (test 11.21 K/ul 1.78-5.38 cypi=5401) LYMPHOCYTES - ABS (CELLAVISION)(BEAKER) (test 0.63 K/ul 1.32-3.57 sayo=0885) MONOCYTES - ABS (CELLAVISION)(BEAKER) (test 0.63 K/uL 0.30-0.82 gbqu=1590) ATYPICAL LYMPHOCYTES - ABS (CELLAVISION)(BEAKER) 0.13 K/uL 0.00-0.00 (test ssto=8739) TOTAL COUNTED (BEAKER) (test kvdn=9773) 100 PLT MORPHOLOGY (BEAKER) (test bzod=925) Normal SMUDGE CELLS (BEAKER) (test tyeh=2988) Present ANISOCYTOSIS (BEAKER) (test tyhf=510) 1+ few POIKILOCYTES (BEAKER) (test ceoo=281) 2+ moderate CESILIA CELLS (BEAKER) (test weze=140) 1+ few PLATELET CONCENTRATION (CELLAVISION)(BEAKER) Adequate (test ujiq=3166) Received comment: User comments: Slide comments:POCT-GLUCOSE [id number] 12: 02:00 Test Item Value Reference Range Comments POC-GLUCOSE METER (BEAKER) 84 mg/dL 70-110 TESTED AT [facility] [address] [facility] (test cuze=8394) [facility] [address] [id number] 07:12:00 Test Item Value Reference Range Comments MAGNESIUM (BEAKER) (test nvmk=346) 1.6 mg/dL 1.6-2.6 BASIC METABOLIC [id number] 07:12:00 Test Item Value Reference Range Comments SODIUM (BEAKER) (test 140 meq/L 136-145 ykup=985) POTASSIUM (BEAKER) (test 3.7 meq/L 3.5-5.1 idqq=502) CHLORIDE (BEAKER) (test 110 meq/L 98-107 qetq=150) CO2 (BEAKER) (test 25 meq/L 22-29 zceq=381) BLOOD UREA NITROGEN 27 mg/dL 7-21 (BEAKER) (test pwqb=074) CREATININE (BEAKER) (test 1.07 mg/dL 0.57-1.25 hpfx=602) GLUCOSE RANDOM (BEAKER) 67 mg/dL 70-105 (test diny=792) CALCIUM (BEAKER) (test 8.5 mg/dL 8.4-10.2 gwmz=491) EGFR (BEAKER) (test 81 mL/min/1.73 sq m ESTIMATED GFR IS NOT qzer=6896) ACCURATE CREATININE CLEARANCE IN PREDICTING GLOMERULAR FILTRATION RATE. ESTIMATED GFR IS NOT APPLICABLE FOR DIALYSIS PATIENTS. POCT-GLUCOSE [id number] 06:24:00 Test Item Value Reference Range Comments POC-GLUCOSE METER (BEAKER) 71 mg/dL 70-110 TESTED AT [address] (test jozi=2729) [place] [address] POCT-GLUCOSE [id number] 00:20:00 Test Item Value Reference Range Comments POC-GLUCOSE METER (BEAKER) 106 mg/dL 70-110 TESTED AT [address] (test mpjx=6717) [place] [address] POCT-GLUCOSE [id number] 18:43:00 Test Item Value Reference Range Comments POC-GLUCOSE METER (BEAKER) 104 mg/dL 70-110 TESTED AT [address] (test psyj=8955) [place] [address] POCT-GLUCOSE [id number] 12:56:00 Test Item Value Reference Range Comments POC-GLUCOSE METER (BEAKER) 113 mg/dL 70-110 TESTED AT [address] (test wdht=0065) [place] [address] CBC W/PLT COUNT & AUTO [id number] 11:01:00 Test Item Value Reference Range Comments WHITE BLOOD CELL COUNT (BEAKER) (test uwno=452) 12.9 K/ L 3.5-10.5 RED BLOOD CELL COUNT (BEAKER) (test fucq=156) 2.66 M/ L 4.63-6.08 HEMOGLOBIN (BEAKER) (test rffd=823) 7.5 GM/DL 13.7-17.5 HEMATOCRIT (BEAKER) (test cihb=101) 24.1 % 40.1-51.0 MEAN CORPUSCULAR VOLUME (BEAKER) (test tizl=085) 90.6 fL 79.0-92.2 MEAN CORPUSCULAR HEMOGLOBIN (BEAKER) (test 28.2 pg 25.7-32.2 mylf=305) MEAN CORPUSCULAR HEMOGLOBIN CONC (BEAKER) (test 31.1 GM/DL 32.3-36.5 imhq=302) RED CELL DISTRIBUTION WIDTH (BEAKER) (test 18.4 % 11.6-14.4 fngb=117) PLATELET COUNT (BEAKER) (test ynrs=257) 208 K/CU MM 150-450 MEAN PLATELET VOLUME (BEAKER) (test tbkg=487) 10.8 fL 9.4-12.4 NUCLEATED RED BLOOD CELLS (BEAKER) (test 0 /100 WBC 0-0 iowg=040) (CELLAVISION MANUAL DIFF)[id number] 11:01:00 Test Item Value Reference Range Comments NEUTROPHILS - REL (CELLAVISION)(BEAKER) (test 86 % hhho=7383) LYMPHOCYTES - REL (CELLAVISION)(BEAKER) (test 1 % yjue=6549) MONOCYTES - REL (CELLAVISION)(BEAKER) (test 9 % ykug=9930) BANDS - REL (CELLAVISION)(BEAKER) (test 3 % 0-10 fnod=4199) ATYPICAL LYMPHOCYTES - REL (CELLAVISION)(BEAKER) 1 % 0-0 (test bjso=3283) NEUTROPHILS - ABS (CELLAVISION)(BEAKER) (test 11.09 K/ul 1.78-5.38 utim=1569) LYMPHOCYTES - ABS (CELLAVISION)(BEAKER) (test 0.13 K/ul 1.32-3.57 vlfp=5457) MONOCYTES - ABS (CELLAVISION)(BEAKER) (test 1.16 K/uL 0.30-0.82 xscf=1142) BANDS - ABS (CELLAVISION)(BEAKER) (test 0.39 K/uL 0.00-0.80 ibci=8260) ATYPICAL LYMPHOCYTES - ABS (CELLAVISION)(BEAKER) 0.13 K/uL 0.00-0.00 (test khwl=5902) TOTAL COUNTED (BEAKER) (test vnxe=3142) 100 WBC MORPHOLOGY (BEAKER) (test ctfj=231) Normal PLT MORPHOLOGY (BEAKER) (test ntos=220) Normal POLYCHROMATOPHILLIC RBCS(BEAKER) (test vwcq=113) 1+ few HYPOCHROMIA (BEAKER) (test ihej=594) 1+ few ARTIFACT (CELLAVISION)(BEAKER) (test dtul=8213) Present PLATELET CONCENTRATION (CELLAVISION)(BEAKER) Adequate (test [id number]) Received comment: User comments: Slide comments:POCT-GLUCOSE [id number] 07: 57:00 Test Item Value Reference Range Comments POC-GLUCOSE METER (BEAKER) 96 mg/dL 70-110 TESTED AT [facility] [address] [facility] (test pswv=[id number]) [facility] [address] [id number] 07:34:00 Test Item Value Reference Range Comments MAGNESIUM (BEAKER) (test kcre=743) 1.8 mg/dL 1.6-2.6 BASIC METABOLIC [id number] 07:34:00 Test Item Value Reference Range Comments SODIUM (BEAKER) (test 138 meq/L 136-145 ssip=456) POTASSIUM (BEAKER) (test 4.0 meq/L 3.5-5.1 tfvv=253) CHLORIDE (BEAKER) (test 108 meq/L 98-107 yhlr=756) CO2 (BEAKER) (test 26 meq/L 22-29 gklm=614) BLOOD UREA NITROGEN 33 mg/dL 7-21 (BEAKER) (test rtnt=498) CREATININE (BEAKER) (test 1.10 mg/dL 0.57-1.25 nbyq=866) GLUCOSE RANDOM (BEAKER) 79 mg/dL 70-105 (test rdol=380) CALCIUM (BEAKER) (test 8.4 mg/dL 8.4-10.2 jejm=474) EGFR (BEAKER) (test 79 mL/min/1.73 sq m ESTIMATED GFR IS NOT ownc=3532) ACCURATE CREATININE CLEARANCE IN PREDICTING GLOMERULAR FILTRATION RATE. ESTIMATED GFR IS NOT APPLICABLE FOR DIALYSIS PATIENTS.
[2018-11-28 16:02] LABS: Absolute Lymphocytes (CBC) 0.9 K/uL (0.7-4.9); Absolute Monocytes 0.8 K/uL (0.1-1.3); Absolute Neutrophil 6.8 K/uL (1.8-8.0); Basophils % 0.4 % (0-1.3); Eosinophils % 1.5 % (0-4.4); Hematocrit 25.2 % (39.6-49.0); Lymphocytes % 10.3 % (15.3-44.8); MPV 8.2 fL (7.6-11.3); Monocytes % 9.1 % (3.3-12.3); RBC Red Blood Cell Count 2.85 M/uL (4.33-5.43)
[2018-11-28 16:27] LABS: ALT/SGPT 44 U/L (12-78); AST/SGOT 48 U/L (15-37); Albumin 1.1 g/dL (3.4-5.0); Alkaline Phosphatase 173 U/L (45-117); BUN Blood Urea Nitrogen 28 mg/dL (7-18); Bicarbonate 29 mmol/L (21-32); Bilirubin Direct < 0.1 mg/dL (0-0.2); Bilirubin Total 0.2 mg/dL (0.2-1.0); Glucose Level 97 mg/dL (74-106); Lipase 303 U/L (73-393); Potassium 4.9 mmol/L (3.5-5.1); Protein, Total 5.5 g/dL (6.4-8.2); Sodium Level 139 mmol/L (136-145)
--- NOTE | 2018-11-28 17:05 | RAD REPORT ---
EXAM DESCRIPTION: CT - Abdomen Pelvis W Contrast - 11/28/2018 4:51 pm CLINICAL HISTORY: Abdominal pain, bleeding from PEG tube, history of GI bleed COMPARISON: CT study July 2018, CT study October 2018 TECHNIQUE: Biphasic, helical CT imaging of the abdomen and pelvis was performed following 100 ml non -ionic IV contrast. Oral contrast was given. All CT scans are performed using dose optimization technique as appropriate and may include automated exposure control or mA/KV adjustment according to patient size. FINDINGS: Chronic interstitial stranding in each lung base. No focal mass or consolidation. No pneum othorax or pleural effusion. No pericardial effusion. The liver, spleen, and pancreas show no suspicious findings. Gallbladder and biliary tree are also wi thout suspicious finding. Symmetric renal function is seen with no hydronephrosis or suspicious renal mass. No pyelonephritis o r acute parenchymal process. Urinary bladder is only partially filled limiting assessment. No adrenal abnormality seen. Enhancement pattern of the kidneys and solid viscera suggest underlying diminished cardiac function. Peg tube has been removed. Right mid abdomen enterostomy tube has been placed since prior imaging. Si nus tract between the stomach in the scan is not substantially different from prior imaging. No abnor mal amount of edema or stranding in the fatty tissues along the course of the sinus tract. Stomach is decompressed limiting assessment of the gastric daniels. No dilated small bowel loops. No dilated colo n. There is contrast material in the right-side of the colon. No free air or pneumatosis. No free flu id in the peritoneal or retroperitoneal spaces. There is fluid retention in subcutaneous fatty tissue s of the abdomen and pelvis. No mass or bulky lymphadenopathy. No omental thickening. No suspicious bony findings. Advanced bony degenerative changes are present. IMPRESSION: Peg tube has been removed from the stomach since the prior imaging. No significant stran ding or edema along the sinus tract from the stomach to the skin. Since prior imaging an enterostomy tube has been placed. Tube is in the right mid abdomen No bowel obstruction, free air or surgically emergent finding. Fluid retention in the subcutaneous fatty tissues. Enhancement pattern of the kidney suggests an unde rlying diminished cardiac function.
[2018-11-28 18:21] LABS: Hematocrit 24.5 % (39.6-49.0)
--- NOTE | 2018-11-28 18:53 | ER ---
Nurse's Notes [facility] Name: Leonardo Kumari Age: 78 yrs Sex: Male : 1940 Arrival Date: 11/28/2018 Time: 14:59 Bed 27 Private MD: Diagnosis: Bleeding Wound Presentation: 11/28 14:59 Presenting complaint: EMS states: PEG TUBE WAS TAKEN AND REPLACED WITH JEJUNOSTOMY rv TUBE. THE PEG TUBE SITE WAS BLEEDING LIGHTLY SINCE IT WAS TAKEN OUT, BUT TODAY IT STARTED BLEEDING PROFUSELY. Transition of care: [facility]. Onset of symptoms was November 28, 2018 at 08:00. Risk Assessment: Do you want to hurt yourself or someone else? Patient reports no desire to harm self or others. Initial Sepsis Screen: Does the patient meet any 2 criteria? No. Patient's initial sepsis screen is negative. Does the patient have a suspected source of infection? No. Patient's initial sepsis screen is negative. 14:59 Method Of Arrival: EMS: [facility] 14:59 Acuity: [place] 3 rv 15:55 Care prior to arrival: None. rv Triage Assessment: 15:03 General: Appears in no apparent distress. uncomfortable, Behavior is quiet. Pain: Noted rv to be grimacing, moaning. EENT: No signs and/or symptoms were reported regarding the EENT system. Neuro: Level of Consciousness is awake, Oriented to person, place. Cardiovascular: Capillary refill < 3 seconds. Respiratory:. 15:09 Respiratory: Airway is patent. GI: RECENT PEG TUBE SITE IS BLEEDING. BLOOD CLOTS NOTED. rv : No signs and/or symptoms were reported regarding the genitourinary system. Derm: Skin with poor turgor Wound noted left lower quadrant Wound is PEG TUBE SITE. Musculoskeletal: No signs and/or symptoms reported regarding the musculoskeletal system. Musculoskeletal: Swelling present in right leg and left leg. Historical: - Allergies: 15:18 Stadol; rv 15:18 Versed; rv - Home Meds: 15:18 acetaminophen 650 mg Rectal supp 1 suppository every 4 hours PRN [Active]; amlodipine 5 rv mg tab 1 tab once daily [Active]; ascorbic acid oral [Active]; Aspir-81 81 mg Oral TbEC 1 tab once daily [Active]; atorvastatin 80 mg Oral tab 1 tab once daily [Active]; Bactrim DS 800-160 mg Oral tab 1 tab every 12 hours [Active]; carvedilol 25 mg Oral tab 1 tab nightly [Active]; clopidogrel 75 mg Oral tab 1 tab once daily [Active]; Colace 50mg/10ml Oral cap 10 mL once daily [Active]; cyclobenzaprine 10 mg Oral tab 1 tab 3 times per day [Active]; Flexeril 10 mg Oral tab q12h prn [Active]; hydralazine 25 mg Oral tab 1 tab every 8 hours [Active]; Ketoconazole Oral [Active]; Levemir 100 unit/mL subcutaneous soln 10 units daily [Active]; multivitamin with minerals Oral 5 mL daily [Active]; Novolog 100 unit/mL Sub-Q soln [Active]; paroxetine HCl 10 mg Oral tab 1 tab once daily [Active]; Pepcid 20 mg Oral tab 1 tab once daily [Active]; Protonix 40 mg Oral TbEC 1 tab once daily [Active]; tramadol 50 mg Oral tab 1 tab every 6 hours [Active]; Zinc Oxide Topical [Active]; - PMHx: 15:18 Allergic rhinitis; Aphasia; Dementia; Depression; Diabetes - NIDDM; DYSPHAGIA; GERD; GI rv Bleed; High Cholesterol; Hypertension; MRSA; Paraplegia; UTI; - PSHx: 15:18 Unable to obtain; rv - Immunization history:: Adult Immunizations up to date. - Social history:: Smoking status: unknown. - Ebola Screening: : No symptoms or risks identified at this time. Screenin:13 Abuse screen: Denies threats or abuse. Denies injuries from another. Nutritional rv screening: No deficits noted. Tuberculosis screening: No symptoms or risk factors identified. Fall Risk None identified. Assessment: 15:18 Reassessment: SEE TRIAGE NOTES FOR INITIAL ASSESSMENT. rv 18:56 Reassessment: Patient appears in no apparent distress at this time. Patient and/or rv family updated on plan of care and expected duration. Pain level reassessed. Patient is alert, oriented x 3, equal unlabored respirations, skin warm/dry/pink. bleeding stopped after changing dressing. MARIAJOSE Armas already explained the status and discharge plans to the family. called [facility] for transport. awaiting callback for ETA. 21:19 Reassessment: Patient appears in no apparent distress at this time. Patient and/or rv family updated on plan of care and expected duration. Pain level reassessed. Patient is alert, oriented x 3, equal unlabored respirations, skin warm/dry/pink. NO SIGN OF ACTIVE BLEEDING FROM THE WOUND. AWAITING EMS TRANSPORT ([facility]). 23:10 Reassessment: PATIENT DISCHARGE WITH NO SIGNS OF BLEEDING. DISCHARGE INSTRUCTIONS GIVEN rv TO EMS ([facility]). Vital Signs: 15:12 BP 103 / 55; Pulse 87; Resp 18; Temp 98.2(O); Pulse Ox 100% on R/A; Weight 77.11 kg; rv 15:56 BP 102 / 52; Pulse 83; Resp 15; Temp 98(O); Pulse Ox 100% ; rv 17:00 BP 132 / 43; Pulse 83; Resp 14; Temp 97.8; Pulse Ox 100% ; rv 18:00 BP 122 / 48; Pulse 81; Resp 15; Pulse Ox 100% ; rv 19:00 BP 111 / 63; Pulse 83; Resp 14; Pulse Ox 100% ; rv 20:30 BP 117 / 248; Pulse 80; Resp 15; Temp 97.8; Pulse Ox 100% ; rv 21:00 BP 109 / 29; Pulse 80; Resp 15; Temp 97.8; Pulse Ox 100% ; rv 23:08 BP 124 / 71; Pulse 81; Resp 14; Temp 97.7; Pulse Ox 98% ; rv ED Course: 14:59 Patient arrived in ED. rv 15:02 Triage completed. rv 15:08 Tenzin Choudhury, RN is Primary Nurse. rv 15:13 Patient has correct armband on for positive identification. Bed in low position. Call rv light in reach. Side rails up X2. Pulse ox on. NIBP on. 15:18 Pawel Montague PA is PHCP. [facility] 15:18 Jose J Groves MD is Attending Physician. [facility] 15:24 Arm band placed on right wrist. Patient placed in an exam room, on a stretcher, on rv pulse oximetry, Patient notified of wait time. Bandage applied. Pressure dressing applied. 15:25 Maintain EMS IV. Dressing intact. Good blood return noted. Site clean \T\ dry. Gauge \T\ rv site: RIGHT EJ. Flushed right. 15:33 Radiology exam delayed due to lab results not completed at this time. (BUN/Creatinine). va 15:55 Initial lab(s) drawn, by me, sent to lab. rv 16:[address] via stretcher. 16:51 CT Abd/Pelvis - W/Contrast In Process Unspecified. EDMS 16:52 CT completed. Patient tolerated procedure well. Patient moved back from [facility]. [facility] 16:59 Basic Metabolic Panel Sent. rv 18:52 Zach Soto MD is Referral Physician. [facility] 23:09 No provider procedures requiring assistance completed. DISCHARGE WITH IV ACCESS IN rv PLACE. Administered Medications: No medications were administered Outcome: 18:52 Discharge ordered by . [facility] 23:09 Discharged to [facility] 23:09 Condition: improved 23:09 Discharge instructions given to EMS, Instructed on discharge instructions, follow up and referral plans. Demonstrated understanding of instructions, follow-up care. 23:11 Patient left the ED. rv Signatures: Dispatcher [employer] EDMS Pawel Montague PA PA jmm Jones, Susan sj Jordan, Brittany Carney 2 Tenzin Choudhury, VIVIEN RN rv Corrections: (The following items were deleted from the chart) 16:03 15:56 BP 102 / 52; Pulse 83bpm; Resp 15bpm; Pulse Ox 100%; rv rv
--- NOTE | 2018-11-28 18:53 | EDPHYS ---
Physician Documentation [facility] Name: Leonardo Kumari Age: 78 yrs Sex: Male : 1940 Arrival Date: 11/28/2018 Time: 14:59 Bed 27 Private MD: ED Physician Jose J Groves HPI: 11/28 15:29 This 78 yrs old Black Male presents to ER via EMS with complaints of Bleeding peg tube [facility] site. 15:29 Onset: The symptoms/episode began/occurred acutely, today. This is a 78 year old male [facility] with a history of dementia that presents to the ED with acute onset bleeding from PEG tube insertion site. Patient recently had J tube placed and peg tube removed in October with mild bleeding. Denies known injury. . Historical: - Allergies: 15:18 Stadol; rv 15:18 Versed; rv - Home Meds: 15:18 acetaminophen 650 mg Rectal supp 1 suppository every 4 hours PRN [Active]; amlodipine 5 rv mg tab 1 tab once daily [Active]; ascorbic acid oral [Active]; Aspir-81 81 mg Oral TbEC 1 tab once daily [Active]; atorvastatin 80 mg Oral tab 1 tab once daily [Active]; Bactrim DS 800-160 mg Oral tab 1 tab every 12 hours [Active]; carvedilol 25 mg Oral tab 1 tab nightly [Active]; clopidogrel 75 mg Oral tab 1 tab once daily [Active]; Colace 50mg/10ml Oral cap 10 mL once daily [Active]; cyclobenzaprine 10 mg Oral tab 1 tab 3 times per day [Active]; Flexeril 10 mg Oral tab q12h prn [Active]; hydralazine 25 mg Oral tab 1 tab every 8 hours [Active]; Ketoconazole Oral [Active]; Levemir 100 unit/mL subcutaneous soln 10 units daily [Active]; multivitamin with minerals Oral 5 mL daily [Active]; Novolog 100 unit/mL Sub-Q soln [Active]; paroxetine HCl 10 mg Oral tab 1 tab once daily [Active]; Pepcid 20 mg Oral tab 1 tab once daily [Active]; Protonix 40 mg Oral TbEC 1 tab once daily [Active]; tramadol 50 mg Oral tab 1 tab every 6 hours [Active]; Zinc Oxide Topical [Active]; - PMHx: 15:18 Allergic rhinitis; Aphasia; Dementia; Depression; Diabetes - NIDDM; DYSPHAGIA; GERD; GI rv Bleed; High Cholesterol; Hypertension; MRSA; Paraplegia; UTI; - PSHx: 15:18 Unable to obtain; rv - Immunization history:: Adult Immunizations up to date. - Social history:: Smoking status: unknown. - Ebola Screening: : No symptoms or risks identified at this time. ROS: 15:29 Constitutional: Negative for fever, chills, and weight loss, Cardiovascular: Negative jmm for chest pain, palpitations, and edema, Respiratory: Negative for shortness of breath, cough, wheezing, and pleuritic chest pain. 15:29 Skin: Positive for wound. 15:29 All other systems are negative. Exam: 15:29 Head/Face: atraumatic. Chest/axilla: Normal chest wall appearance and motion. jmm Cardiovascular: Regular rate and rhythm. No edema appreciated Respiratory: Normal respirations, no respiratory distress appreciated 15:29 Eyes: EOMI, no conjunctival erythema appreciated ENT: Moist Mucus Membranes Neck: Trachea midline, Supple 15:29 Constitutional: The patient appears alert, awake. 15:29 Abdomen/GI: mild bleeding noted to the peg tube insertion site. . 15:29 Musculoskeletal/extremity: contracted. 15:29 Skin: Appearance: Color: normal in color. Vital Signs: 15:12 BP 103 / 55; Pulse 87; Resp 18; Temp 98.2(O); Pulse Ox 100% on R/A; Weight 77.11 kg; rv 15:56 BP 102 / 52; Pulse 83; Resp 15; Temp 98(O); Pulse Ox 100% ; rv 17:00 BP 132 / 43; Pulse 83; Resp 14; Temp 97.8; Pulse Ox 100% ; rv 18:00 BP 122 / 48; Pulse 81; Resp 15; Pulse Ox 100% ; rv 19:00 BP 111 / 63; Pulse 83; Resp 14; Pulse Ox 100% ; rv 20:30 BP 117 / 248; Pulse 80; Resp 15; Temp 97.8; Pulse Ox 100% ; rv 21:00 BP 109 / 29; Pulse 80; Resp 15; Temp 97.8; Pulse Ox 100% ; rv 23:08 BP 124 / 71; Pulse 81; Resp 14; Temp 97.7; Pulse Ox 98% ; rv MDM: 15:29 Patient medically screened. [facility] 18:52 Data reviewed: vital signs, nurses notes, lab test result(s). Counseling: I had a [facility] detailed discussion with the patient and/or guardian regarding: the historical points, exam findings, and any diagnostic results supporting the discharge/admit diagnosis, lab results, radiology results, the need for outpatient follow up, to return to the emergency department if symptoms worsen or persist or if there are any questions or concerns that arise at home. 18:52 ED course: CT abdomen negative for an acute process. Repeat H/H stable. I reexamined [facility] the wound site with no increased bleeding. Nurse stated the dressing has remained intact throughout his stay. Family advised to have the patient follow up with General surgery in 1 to 2 days for reevaluation. Otherwise given strict return precautions. . 11/28 15:30 Order name: Basic Metabolic Panel [facility] 11/28 15:30 Order name: CBC with Diff; Complete Time: 16:09 [facility] 11/28 15:30 Order name: Creatinine for Radiology; Complete Time: 16:27 [facility] 11/28 15:30 Order name: Hepatic Function; Complete Time: 16:28 [facility] 11/28 15:30 Order name: Lipase; Complete Time: 16:28 [facility] 11/28 15:30 Order name: Type And Screen; Complete Time: 17:43 [facility] 11/28 15:30 Order name: IV Saline Lock; Complete Time: 15:44 [facility] 11/28 15:30 Order name: Labs collected and sent; Complete Time: 15:44 [facility] 11/28 15:30 Order name: CT Abd/Pelvis - W/Contrast; Complete Time: 17:11 [facility] 11/28 15:31 Order name: Basic Metabolic Panel; Complete Time: 16:28 [facility] 11/28 17:43 Order name: Hemoglobin; Complete Time: 18:41 [facility] 11/28 17:43 Order name: Hematocrit; Complete Time: 18:41 [facility] Administered Medications: No medications were administered Disposition: 11/29 06:57 Co-signature as Attending Physician, Jose J Groves MD I agree with the assessment and kdr plan of care. Disposition: 11/28/18 18:52 Discharged to Home. Impression: Bleeding Wound. - Condition is Stable. - Discharge Instructions: Wound Care. - Medication Reconciliation Form, Thank You Letter, Antibiotic Education, Prescription Opioid Use form. - Follow up: Zach Soto MD; When: 2 - 3 days; Reason: Recheck today's complaints, Continuance of care, Re-evaluation by your physician. Signatures: Dispatcher [employer] EDMS Jose J Groves MD MD kdr Mickail, Joel, PA PA [facility] Tenzin Choudhury RN RN rv Corrections: (The following items were deleted from the chart) 11/28 20:11 20:10 This 78 yrs old Black Male presents to ER via EMS with complaints of Bleeding peg jmm tube site. [facility] 23:11 18:52 11/28/2018 18:52 Discharged to Home. Impression: Bleeding Wound. Condition is rv Stable. Forms are Medication Reconciliation Form, Thank You Letter, Antibiotic Education, Prescription Opioid Use. Follow up: Zach Soto; When: 2 - 3 days; Reason: Recheck today's complaints, Continuance of care, Re-evaluation by your physician. [facility]
[2018-11-28 23:27] VITALS: BP 124/71; TEMP 97.7; O2SAT 98
== END 2018-11-28 23:11 | disposition home or self-care (01) ==
LOC: ER 14:58
DX: Z48.00 Encounter for change or removal of nonsurgical wound dressing (principal); I10 Essential (primary) hypertension; E11.9 Type 2 diabetes mellitus without complications; E78.00 Pure hypercholesterolemia, unspecified; F32.9 Major depressive disorder, single episode, unspecified; F03.90 Unspecified dementia, unspecified severity, without behavioral disturbance, psychotic disturbance, mood disturbance, and anxiety; G82.20 Paraplegia, unspecified; Z79.4 Long term (current) use of insulin; Z79.82 Long term (current) use of aspirin; Z88.5 Allergy status to narcotic agent; Z88.8 Allergy status to other drugs, medicaments and biological substances
CPT/HCPCS: 85025; 80048; 36415; 86900; 86850; 86901; 80076; 85018; 85014; 83690; 74177; 99284; Q9967

== ENCOUNTER 2018-11-29 04:41 | Emergency (ER) | payer OTHER ==
--- OUTSIDE RECORDS SUMMARY | 2018-11-29 04:44 | XMS REPORT | Clinical Summary ---
:1940 Author Organization [facility] Address [address] [place] [address] Care Team Providers Name Role Phone Cielo [...] Date Type Specialty Care Team Description 08/10/2018 [facility] Internal Tirukkovalluri, Anemia, unspecified - Encounter Medicine MD Kiersten type 08/11/2018 Silas Joyner III, MD 07/13/2018 Surgery Gastroenterology Malik Gonsales UPPER ENDOSCOPY MD Juan Manuel 07/13/2018 Anesthesia Event Gastroenterology Mita Banuelos MD 07/11/2018 [facility] Internal [facility], Myrna Gastrointestinal hemorrhage associated with gastrojejunal ulcer; - Encounter Medicine MD Ama Abdominal wall cellulitis; 07/15/2018 Tazn, History of CVA with residual deficit; [place] Severe protein-calorie malnutrition (HCC); MD Daniel Sacral decubitus ulcer, stage III (HCC); Donovan Ledezmaison Blood loss anemia; MD Pippa Gastrointestinal hemorrhage, unspecified gastrointestinal hemorrhage type after 11/28/2017 Social History Tobacco Use Types Packs/Day Years Used Date Unknown If Ever Smoked Sex Assigned at Date Recorded Not on file Job Start Date Occupation Industry Not on file Not on file Not on file Travel History Travel Start Travel End No recent travel history available. Last Filed Vital Signs Vital Sign Reading Time Taken Blood Pressure 144/66 08/11/2018 3:08 PM PILOT SAFETY INSPECTOR Pulse 92 08/11/2018 3:08 PM PILOT SAFETY INSPECTOR Temperature 35.6 C (96 F) 08/11/2018 3:08 PM PILOT SAFETY INSPECTOR Respiratory Rate 18 08/11/2018 3:08 PM PILOT SAFETY INSPECTOR Oxygen Saturation 95% 08/11/2018 3:08 PM PILOT SAFETY INSPECTOR Inhaled Oxygen Concentration 21% 07/14/2018 3:52 PM PILOT SAFETY INSPECTOR Weight 60.8 kg (134 lb 0.6 oz) 08/10/2018 5:00 PM PILOT SAFETY INSPECTOR Height - - Body Mass Index - - Plan of Treatment Not on file Procedures Procedure Name Priority Date/Time Associated Comments Diagnosis RHYTHM STRIP - SCAN 10/15/2018 9:20 AM CDT HEMOGLOBIN AND Routine 08/11/2018 12:31 Results for this HEMATOCRIT PM PILOT SAFETY INSPECTOR procedure are in the results section. POCT-GLUCOSE METER Routine 08/11/2018 11:51 Results for this AM PILOT SAFETY INSPECTOR procedure are in the results section. POCT-GLUCOSE METER Routine 08/11/2018 6:16 Results for this AM PILOT SAFETY INSPECTOR procedure are in the results section. CBC W/PLT COUNT & AUTO Routine 08/11/2018 1:57 Results for this DIFFERENTIAL AM PILOT SAFETY INSPECTOR procedure are in the results section. CBC W/PLT COUNT & AUTO Routine 08/11/2018 1:57 Results for this DIFFERENTIAL AM PILOT SAFETY INSPECTOR procedure are in the results section. PHOSPHORUS Routine 08/11/2018 1:57 Results for this AM PILOT SAFETY INSPECTOR procedure are in the results section. MAGNESIUM Routine 08/11/2018 1:57 Results for this AM PILOT SAFETY INSPECTOR procedure are in the results section. CALCIUM, IONIZED Routine 08/11/2018 1:57 Results for this AM PILOT SAFETY INSPECTOR procedure are in the results section. HEMOGLOBIN A1C Routine 08/11/2018 1:57 Results for this AM PILOT SAFETY INSPECTOR procedure are in the results section. BASIC METABOLIC PANEL Routine 08/11/2018 1:57 Results for this (7) AM PILOT SAFETY INSPECTOR procedure are in the results section. HEMOGLOBIN AND Routine 08/11/2018 1:57 Results for this HEMATOCRIT AM PILOT SAFETY INSPECTOR procedure are in the results section. POCT-GLUCOSE METER Routine 08/11/2018 1:35 Results for this AM PILOT SAFETY INSPECTOR procedure are in the results section. POCT-GLUCOSE METER Routine 08/10/2018 10:54 Results for this PM PILOT SAFETY INSPECTOR procedure are in the results section. CBC W/PLT COUNT & AUTO STAT 08/10/2018 6:20 Results for this DIFFERENTIAL PM PILOT SAFETY INSPECTOR procedure are in the results section. HEMOGLOBIN AND Routine 08/10/2018 6:20 Results for this HEMATOCRIT PM PILOT SAFETY INSPECTOR procedure are in the results section. HEMOGLOBIN A1C AP Routine 08/10/2018 6:20 Results for this PM PILOT SAFETY INSPECTOR procedure are in the results section. PHOSPHORUS STAT 08/10/2018 6:20 Results for this PM PILOT SAFETY INSPECTOR procedure are in the results section. MAGNESIUM STAT 08/10/2018 6:20 Results for this PM PILOT SAFETY INSPECTOR procedure are in the results section. COMPREHENSIVE STAT 08/10/2018 6:20 Results for this METABOLIC PANEL PM PILOT SAFETY INSPECTOR procedure are in the results section. CBC W/PLT COUNT & AUTO STAT 08/10/2018 6:20 Results for this DIFFERENTIAL PM PILOT SAFETY INSPECTOR procedure are in the results section. POCT-GLUCOSE METER Routine 08/10/2018 4:38 Results for this PM PILOT SAFETY INSPECTOR procedure are in the results section. RHYTHM STRIP - SCAN 08/02/2018 8:20 AM PILOT SAFETY INSPECTOR TRANSFUSION SERVICE 07/16/2018 6:01 REPORT - SCAN PM PILOT SAFETY INSPECTOR PREPARE LEUKO-REDUCED Routine 07/15/2018 11:54 Results for this RBC PM PILOT SAFETY INSPECTOR procedure are in the results section. TRANSFUSION SERVICE 07/15/2018 6:01 REPORT - SCAN PM PILOT SAFETY INSPECTOR POCT-GLUCOSE METER Routine 07/15/2018 8:18 Results for this AM PILOT SAFETY INSPECTOR procedure are in the results section. CBC W/PLT COUNT & AUTO Routine 07/15/2018 7:11 Results for this DIFFERENTIAL AM PILOT SAFETY INSPECTOR procedure are in the results section. BASIC METABOLIC PANEL Routine 07/15/2018 7:11 Results for this (7) AM PILOT SAFETY INSPECTOR procedure are in the results section. HAPTOGLOBIN Routine 07/15/2018 7:11 Results for this AM PILOT SAFETY INSPECTOR procedure are in the results section. CBC W/PLT COUNT & AUTO Routine 07/15/2018 7:11 Results for this DIFFERENTIAL AM PILOT SAFETY INSPECTOR procedure are in the results section. POCT-GLUCOSE METER Routine 07/15/2018 6:37 Results for this AM PILOT SAFETY INSPECTOR procedure are in the results section. POCT-GLUCOSE METER Routine 07/14/2018 11:36 Results for this PM PILOT SAFETY INSPECTOR procedure are in the results section. POCT-GLUCOSE METER Routine 07/14/2018 5:23 Results for this PM PILOT SAFETY INSPECTOR procedure are in the results section. BASIC METABOLIC PANEL Routine 07/14/2018 3:47 Results for this (7) PM PILOT SAFETY INSPECTOR procedure are in the results section. PERIPHERAL BLOOD SMEAR AP Routine 07/14/2018 3:47 Results for this - PATHOLOGIST REVIEW PM PILOT SAFETY INSPECTOR procedure are in the results section. RETICULOCYTE COUNT Routine 07/14/2018 3:47 Results for this PM PILOT SAFETY INSPECTOR procedure are in the results section. CBC W/PLT COUNT & AUTO Routine 07/14/2018 1:03 Results for this DIFFERENTIAL PM PILOT SAFETY INSPECTOR procedure are in the results section. HEPATIC FUNCTION PANEL Routine 07/14/2018 1:03 Results for this PM PILOT SAFETY INSPECTOR procedure are in the results section. CBC W/PLT COUNT & AUTO Routine 07/14/2018 1:03 Results for this DIFFERENTIAL PM PILOT SAFETY INSPECTOR procedure are in the results section. LACTATE DEHYDROGENASE Routine 07/14/2018 1:03 Results for this (LDH) PM PILOT SAFETY INSPECTOR procedure are in the results section. TRANSFUSE Routine 07/14/2018 12:32 LEUKO-REDUCED RED PM PILOT SAFETY INSPECTOR BLOOD CELLS POCT-GLUCOSE METER Routine 07/14/2018 12:01 Results for this PM PILOT SAFETY INSPECTOR procedure are in the results section. VANCOMYCIN LEVEL, Routine 07/14/2018 8:37 Results for this RANDOM AM PILOT SAFETY INSPECTOR procedure are in the results section. POCT-GLUCOSE METER Routine 07/14/2018 6:45 Results for this AM PILOT SAFETY INSPECTOR procedure are in the results section. CBC W/PLT COUNT & AUTO Routine 07/14/2018 6:10 Results for this DIFFERENTIAL AM PILOT SAFETY INSPECTOR procedure are in the results section. MAGNESIUM Routine 07/14/2018 6:10 Results for this AM PILOT SAFETY INSPECTOR procedure are in the results section. BASIC METABOLIC PANEL Routine 07/14/2018 6:10 Results for this (7) AM PILOT SAFETY INSPECTOR procedure are in the results section. CBC W/PLT COUNT & AUTO Routine 07/14/2018 6:10 Results for this DIFFERENTIAL AM PILOT SAFETY INSPECTOR procedure are in the results section. POCT-GLUCOSE METER Routine 07/14/2018 1:16 Results for this AM PILOT SAFETY INSPECTOR procedure are in the results section. VANCOMYCIN LEVEL, Timed 07/13/2018 9:11 Results for this TROUGH PM PILOT SAFETY INSPECTOR procedure are in the results section. TRANSFUSION SERVICE 07/13/2018 6:03 REPORT - SCAN PM PILOT SAFETY INSPECTOR POCT-GLUCOSE METER Routine 07/13/2018 5:42 Results for this PM PILOT SAFETY INSPECTOR procedure are in the results section. POCT-GLUCOSE METER Routine 07/13/2018 3:39 Results for this PM PILOT SAFETY INSPECTOR procedure are in the results section. REPORT OF PROCEDURE - 07/13/2018 3:20 ENDOSCOPY URL PM PILOT SAFETY INSPECTOR UPPER ENDOSCOPY 07/13/2018 3:00 Melena PM PILOT SAFETY INSPECTOR POCT-GLUCOSE METER Routine 07/13/2018 11:58 Results for this AM PILOT SAFETY INSPECTOR procedure are in the results section. (CELLAVISION MANUAL Routine 07/13/2018 5:54 Results for this DIFF) AM PILOT SAFETY INSPECTOR procedure are in the results section. CBC W/PLT COUNT & AUTO Routine 07/13/2018 5:54 Results for this DIFFERENTIAL AM PILOT SAFETY INSPECTOR procedure are in the results section. MAGNESIUM Routine 07/13/2018 5:54 Results for this AM PILOT SAFETY INSPECTOR procedure are in the results section. BASIC METABOLIC PANEL Routine 07/13/2018 5:54 Results for this (7) AM PILOT SAFETY INSPECTOR procedure are in the results section. CBC W/PLT COUNT & AUTO Routine 07/13/2018 5:54 Results for this DIFFERENTIAL AM PILOT SAFETY INSPECTOR procedure are in the results section. POCT-GLUCOSE METER Routine 07/13/2018 5:49 Results for this AM PILOT SAFETY INSPECTOR procedure are in the results section. POCT-GLUCOSE METER Routine 07/13/2018 12:11 Results for this AM PILOT SAFETY INSPECTOR procedure are in the results section. POCT-GLUCOSE METER Routine 07/12/2018 6:40 Results for this PM PILOT SAFETY INSPECTOR procedure are in the results section. POCT-GLUCOSE METER Routine 07/12/2018 12:43 Results for this PM PILOT SAFETY INSPECTOR procedure are in the results section. ECG 12-LEAD Routine 07/12/2018 9:22 Results for this AM PILOT SAFETY INSPECTOR procedure are in the results section. POCT-GLUCOSE METER Routine 07/12/2018 7:37 Results for this AM PILOT SAFETY INSPECTOR procedure are in the results section. (CELLAVISION MANUAL Routine 07/12/2018 6:21 Results for this DIFF) AM PILOT SAFETY INSPECTOR procedure are in the results section. CBC W/PLT COUNT & AUTO Routine 07/12/2018 6:21 Results for this DIFFERENTIAL AM PILOT SAFETY INSPECTOR procedure are in the results section. TYPE AND SCREEN, Routine 07/12/2018 6:21 Results for this AUTOMATED AM PILOT SAFETY INSPECTOR procedure are in the results section. MAGNESIUM Routine 07/12/2018 6:21 Results for this AM PILOT SAFETY INSPECTOR procedure are in the results section. BASIC METABOLIC PANEL Routine 07/12/2018 6:21 Results for this (7) AM PILOT SAFETY INSPECTOR procedure are in the results section. CBC W/PLT COUNT & AUTO Routine 07/12/2018 6:21 Results for this DIFFERENTIAL AM PILOT SAFETY INSPECTOR procedure are in the results section. after 11/28/2017 Results RHYTHM STRIP - SCAN (10/15/2018 9:20 AM CDT)Only the most recent of2 resultswithin the time period is included. Narrative Performed At Hemoglobin and hematocrit (08/11/2018 12:31 PM PILOT SAFETY INSPECTOR)Only the most recent of3 resultswithin the time period is included. Hemoglobin 9.2 (L) 13.7 - 17.5 GM/DL [facility] Hematocrit 30.1 (L) 40.1 - 51.0 % [facility] Specimen Blood Performing Organization Address City/[facility] Phone Number [address] [address] [place] POC-Glucose meter (08/11/2018 11:51 AM PILOT SAFETY INSPECTOR)Only the most recent of20 resultswithin the time period is included. POC-Glucose Meter 98Comment: TESTED AT 70 - 110 mg/dL [address] [address] Specimen Blood Performing Organization Address City/[facility] Hospital[facility] Phone Number [address] [address] [place] Calcium, Ionized (08/11/2018 1:57 AM PILOT SAFETY INSPECTOR) Calcium, Ion 1.09 (L) 1.12 - 1.27 mmol/L [facility] pH, Blood 7.44 [facility] Specimen Blood Performing Organization Address City/[facility] Hospitalcomd Phone Number [address] [address] [place] CBC with platelet count + automated diff (08/11/2018 1:57 AM PILOT SAFETY INSPECTOR)Only the most recent of7 resultswithin the time period is included. WBC 10.1 3.5 - 10.5 K/L [facility] RBC 3.54 (L) 4.63 - 6.08 M/L [facility] Hemoglobin 9.8 (L) 13.7 - 17.5 GM/DL [facility] Hematocrit 31.9 (L) 40.1 - 51.0 % [facility] MCV 90.1 79.0 - 92.2 fL [facility] MCH 27.7 25.7 - 32.2 pg [facility] MCHC 30.7 (L) 32.3 - 36.5 GM/DL [facility] RDW 17.7 (H) 11.6 - 14.4 % [facility] Platelets 209 150 - 450 K/CU MM [facility] MPV 9.9 9.4 - 12.4 fL [facility] nRBC 0 0 - 0 /100 WBC [facility] % Neutros 77 % [facility] % Lymphs 11 % [facility] % Monos 10 % [facility] % Eos 2 % [facility] % Baso 0 % [facility] # Neutros 7.78 (H) 1.78 - 5.38 K/L [facility] # Lymphs 1.07 (L) 1.32 - 3.57 K/L [facility] # Monos 1.04 (H) 0.30 - 0.82 K/L [facility] # Eos 0.17 0.04 - 0.54 K/L [facility] # Baso 0.02 0.01 - 0.08 K/L [facility] Immature Granulocytes-Relative 0 0 - 1 % [facility] Specimen Blood Performing Organization Address City/[facility]/Zipcode Phone Number [address] [address] CENTER Phosphorus (08/11/2018 1:57 AM PILOT SAFETY INSPECTOR)Only the most recent of2 resultswithin the time period is included. Phosphorus 3.2 2.3 - 4.7 mg/dL [facility] Specimen Blood Performing Organization Address City/[facility]/Zipcode Phone Number [address] [address] [phone] CENTER Magnesium (08/11/2018 1:57 AM PILOT SAFETY INSPECTOR)Only the most recent of5 resultswithin the time period is included. Magnesium 1.8 1.6 - 2.6 mg/dL [facility] Specimen Blood Performing Organization Address City/State/Zipcode Phone Number [address] [address] CENTER Hemoglobin A1c (08/11/2018 1:57 AM PILOT SAFETY INSPECTOR)Only the most recent of2 resultswithin the time period is included. Hemoglobin A1C 6.4 (H) 4.3 - 6.1 % [facility] Specimen Blood Performing Organization Address [facility] Hospitalcode Phone Number [address] [address] [phone] [place] Basic metabolic panel (08/11/2018 1:57 AM PILOT SAFETY INSPECTOR)Only the most recent of6 resultswithin the time period is included. Sodium 134 (L) 136 - 145 meq/L [facility] Potassium 4.2 3.5 - 5.1 meq/L [facility] Chloride 102 98 - 107 meq/L [facility] CO2 27 22 - 29 meq/L [facility] BUN 24 (H) 7 - 21 mg/dL [facility] Creatinine 1.31 (H) 0.57 - 1.25 mg/dL [facility] Glucose 77 70 - 105 mg/dL [facility] Calcium 8.6 8.4 - 10.2 mg/dL [facility] EGFR 64Comment: ESTIMATED GFR IS mL/min/1.73 sq m [facility] NOT ACCURATE CREATININE [facility] CLEARANCE IN PREDICTING GLOMERULAR FILTRATION RATE. ESTIMATED GFR IS NOT APPLICABLE FOR DIALYSIS PATIENTS. Specimen Blood Performing Organization Address City/[facility]/Zipcode Phone Number [address] [address] [phone] [employer] Comprehensive metabolic panel (08/10/2018 6:20 PM PILOT SAFETY INSPECTOR) Protein, Total 7.4 6.0 - 8.3 gm/dL [facility] Albumin 2.1 (L) 3.5 - 5.0 g/dL [facility] Alkaline Phosphatase 142 40 - 150 U/L [facility] Total Bilirubin 0.2 0.2 - 1.2 mg/dL [facility] Sodium 136 136 - 145 meq/L [facility] Potassium 4.0 3.5 - 5.1 meq/L [facility] Chloride 102 98 - 107 meq/L [facility] CO2 29 22 - 29 meq/L [facility] BUN 27 (H) 7 - 21 mg/dL [facility] Creatinine 1.33 (H) 0.57 - 1.25 mg/dL [facility] Glucose 51 (L) 70 - 105 mg/dL [facility] Calcium 8.6 8.4 - 10.2 mg/dL [facility] AST 37 (H) 5 - 34 U/L [facility] ALT 27 6 - 55 U/L [facility] EGFR 63Comment: ESTIMATED GFR mL/min/1.73 sq m [facility] IS NOT ACCURATE [facility] CREATININE CLEARANCE IN PREDICTING GLOMERULAR FILTRATION RATE. ESTIMATED GFR IS NOT APPLICABLE FOR DIALYSIS PATIENTS. Specimen Blood Performing Organization Address City/State/Zipcode Phone Number [facility] [address] [place] [address] [phone] [employer] TRANSFUSION SERVICE REPORT - SCAN (07/16/2018 6:01 PM PILOT SAFETY INSPECTOR)Only the most recent of3 resultswithin the time period is included. Narrative Performed At Prepare Leuko-Red RBC (07/15/2018 11:54 PM PILOT SAFETY INSPECTOR) CROSSMATCH COMPATIBLE [place] [place] Unit ABO O Pos [employer]AFET[employer] [place] UNIT NUMBER [id number] [place] Status TRANSFUSED [place] [place] Blood Bank Product RED BLOOD CELLS [place] PRODUCT CODE [id number] [place] Specimen Other Performing Organization Address [facility] Phone Number [employer] [place] Haptoglobin (07/15/2018 7:11 AM PILOT SAFETY INSPECTOR) Haptoglobin 185 14 - 258 mg/dL [facility] Specimen Blood Performing Organization Address [facility] Phone Number [address] [address] [phone] [employer] Peripheral Blood Smear - Path Review (07/14/2018 3:47 PM PILOT SAFETY INSPECTOR) RBC Morphology Polychromasia [facility] Anisocytosis [facility] Poikilocytosis WBC Morphology Toxic Granulation [facility] Pathologist Review Cell counts confirmed. [facility] Pathologist: Rafaela Dowell M.D. [facility] (electronic signature) [facility] Specimen Blood Performing Organization Address [facility] Phone Number [address] [address] [phone] CENTER Reticulocyte count (07/14/2018 3:47 PM PILOT SAFETY INSPECTOR) % Retic 2.3 (H) 0.5 - 1.8 % [facility] Specimen Blood Performing Organization Address [facility] Phone Number [address] [address] CENTER Lactate dehydrogenase (LDH) (07/14/2018 1:03 PM PILOT SAFETY INSPECTOR) LDH 338 (H)Comment: Specimen 125 - 220 U/L [facility] slightly hemolyzed [facility] Specimen Blood Performing Organization Address [facility] Phone Number [address] [address] [place] Hepatic function panel (07/14/2018 1:03 PM PILOT SAFETY INSPECTOR) Protein, Total 4.8 (L)Comment: Specimen 6.0 - 8.3 gm/dL [facility] hemolyzed [facility] Albumin 1.2 (L)Comment: Specimen 3.5 - 5.0 g/dL [facility] hemolyzed [facility] Total Bilirubin 0.2Comment: Specimen 0.2 - 1.2 mg/dL [facility] Bilirubin, Direct 0.1Comment: Specimen 0.1 - 0.5 mg/dL [facility] hemolyzed [facility] Alkaline Phosphatase 74 40 - 150 U/L [facility] AST 38 (H)Comment: Specimen 5 - 34 U/L [facility] hemolyzed [facility] ALT 19Comment: Specimen 6 - 55 U/L [facility] Specimen Blood Performing Organization Address City/[facility]code Phone Number [address] [address] [phone] CENTER Transfuse Leuko-Red RBC (07/14/2018 12:32 PM PILOT SAFETY INSPECTOR)Only the most recent of2 resultswithin the time period is included.Vancomycin level, random (07/14/2018 8:37 AM PILOT SAFETY INSPECTOR) Vancomycin Rm 22.6 ug/mL [facility] Specimen Blood Narrative Performed At Reference Range: No Normals [facility] Performing Organization Address [facility] Phone Number [address] [address] [phone] CENTER Vancomycin level, trough (07/13/2018 9:11 PM PILOT SAFETY INSPECTOR) Vancomycin Tr 26.3 (H) 10.0 - 20.0 ug/mL [facility] Specimen Blood Narrative Performed At WAIT FOR LEVEL TO RETURN BEFORE GIVING DOSE. [facility] If vancomycin trough level > 20, HOLD dose and contact MD and pharmacist. Performing Organization Address City/[facility]/Zipcode Phone Number [facility] [address] [place] [address] [phone] CENTER REPORT OF PROCEDURE - ENDOSCOPY URL (07/13/2018 3:20 PM PILOT SAFETY INSPECTOR) Narrative Performed At Manual Differential (07/13/2018 5:54 AM PILOT SAFETY INSPECTOR)Only the most recent of2 resultswithin the time period is included. % Neutros 89 % [facility] % Lymphs 5 % [facility] % Monos 5 % [facility] % Atypical Lymphs 1 (H) 0 - 0 % [facility] # Neutros 11.21 (H) 1.78 - 5.38 K/ul [facility] # Lymphs 0.63 (L) 1.32 - 3.57 K/ul [facility] # Monos 0.63 0.30 - 0.82 K/uL [facility] # Atypical Lymphs 0.13 (H) 0.00 - 0.00 K/uL [facility] Total Counted 100 [facility] Platelet Morphology Normal [facility] Smudge Cells Present [facility] Anisocytosis 1+ few [facility] Poikilocytes 2+ moderate [facility] [place] Cells 1+ few [facility] Platelet Conc Adequate [facility] Specimen Blood Narrative Performed At Received comment: [facility] User comments: Slide comments: Performing Organization Address City/State/Zipcode Phone Number [facility] [address] [place] [address] [place] [employer] ECG 12 lead (07/12/2018 9:22 AM PILOT SAFETY INSPECTOR) Specimen Narrative Performed At Ventricular Rate 100 BPM GE MUSE Atrial Rate 100 BPM P-R Interval 148 ms QRS Duration 90 ms Q-T Interval 344 ms QTC Calculation(Bazett) 443 ms P Blaine 59 degrees R Blaine -12 degrees T Blaine 9 degrees Sinus rhythm with premature artial complexes Inferior infarct , age undetermined Abnormal ECG No previous ECGs available Confirmed by MD MARYJANE, IHAB ([id number]) on 07/13/2018 7:29:33 AM Procedure Note Interface, External Ris In - 07/13/2018 7:29 AM PILOT SAFETY INSPECTOR Ventricular Rate 100 BPM Atrial Rate 100 BPM P-R Interval 148 ms QRS Duration 90 ms Q-T Interval 344 ms QTC Calculation(Bazett) 443 ms P Blaine 59 degrees R Blaine -12 degrees T Blaine 9 degrees Sinus rhythm with premature artial complexes Inferior infarct , age undetermined Abnormal ECG No previous ECGs available Confirmed by MD MARYJANE, IHAB ([id number]) on 07/13/2018 7:29:33 AM Performing Organization Address City/State/Zipcode Phone Number GE MUSE Type and screen, automated (07/12/2018 6:21 AM PILOT SAFETY INSPECTOR) ABO/RH AUTOMATED (BEAKER) O POSITIVE [facility] Ab Scrn NEGATIVE [facility] Specimen Blood Performing Organization Address City/State/Zipcode Phone Number [facility] [address] [place] [address] [phone] after 11/28/2017 Insurance Payer Benefit Plan / Group Subscriber ID Type Phone Address MEDICARE MEDICARE A B xxxxxxxxxxx Medicare MEDICAID MEDICAID [facility] xxxxxxxxx Medicaid Advance Directives For more information, please contact:[facility] [place], [place] [phone] Code Status Date Activated Date Inactivated Comments Full Code 08/10/2018 8:12 PM This code status was determined by: Patient Full Code 07/11/2018 10:34 PM 08/10/2018 4:09 PM This code status was determined by: Patient
--- OUTSIDE RECORDS SUMMARY | 2018-11-29 04:45 | XMS REPORT ---
:1940 [facility] [address] [place] [id number] Care Team Providers Name Role Phone RODNEY [...] Reference Range Comments HEMOGLOBIN A1C (BEAKER) (test tbrj=471) 6.4 % 4.3-6.1 HEMOGLOBIN [id number] 13:06:00 Test Item Value Reference Range Comments HEMOGLOBIN A1C (BEAKER) (test owxn=891) 6.3 % 4.3-6.1 HEMOGLOBIN AND [id number] 12:45:00 Test Item Value Reference Range Comments HEMOGLOBIN (BEAKER) (test ptbm=189) 9.2 GM/DL 13.7-17.5 HEMATOCRIT (BEAKER) (test zxwd=768) 30.1 % 40.1-51.0 POCT-GLUCOSE [id number] 12:00:00 Test Item Value Reference Range Comments POC-GLUCOSE METER (BEAKER) 98 mg/dL 70-110 TESTED AT [place] [id number] [facility] (test idgu=8677) [facility] [address] POCT-GLUCOSE [id number] 06:19:00 Test Item Value Reference Range Comments POC-GLUCOSE METER (BEAKER) 120 mg/dL 70-110 TESTED AT [place] [id number] [facility] (test pajz=3543) [facility] [address] [id number] 02:40:00 Test Item Value Reference Range Comments PHOSPHORUS (BEAKER) (test rbjl=376) 3.2 mg/dL 2.3-4.7 [id number] 02:40:00 Test Item Value Reference Range Comments MAGNESIUM (BEAKER) (test nrrp=973) 1.8 mg/dL 1.6-2.6 BASIC METABOLIC [id number] 02:40:00 Test Item Value Reference Range Comments SODIUM (BEAKER) (test 134 meq/L 136-145 tdrw=247) POTASSIUM (BEAKER) (test 4.2 meq/L 3.5-5.1 shtb=905) CHLORIDE (BEAKER) (test 102 meq/L 98-107 hmdc=791) CO2 (BEAKER) (test 27 meq/L 22-29 wmsv=851) BLOOD UREA NITROGEN 24 mg/dL 7-21 (BEAKER) (test dysj=077) CREATININE (BEAKER) (test 1.31 mg/dL 0.57-1.25 mmtx=815) GLUCOSE RANDOM (BEAKER) 77 mg/dL 70-105 (test whow=251) CALCIUM (BEAKER) (test 8.6 mg/dL 8.4-10.2 qsww=245) EGFR (BEAKER) (test 64 mL/min/1.73 sq m ESTIMATED GFR IS NOT vowq=6900) ACCURATE CREATININE CLEARANCE IN PREDICTING GLOMERULAR FILTRATION RATE. ESTIMATED GFR IS NOT APPLICABLE FOR DIALYSIS PATIENTS. CALCIUM, [id number] 02:18:00 Test Item Value Reference Range Comments CALCIUM IONIZED (BEAKER) (test amfp=826) 1.09 mmol/L 1.12-1.27 PH, BLOOD (BEAKER) (test ckin=2333) 7.44 HEMOGLOBIN AND [id number] 02:10:00 Test Item Value Reference Range Comments HEMOGLOBIN (BEAKER) (test jsgs=791) 9.8 GM/DL 13.7-17.5 HEMATOCRIT (BEAKER) (test rxrx=114) 31.9 % 40.1-51.0 CBC W/PLT COUNT & AUTO [id number] 02:10:00 Test Item Value Reference Range Comments WHITE BLOOD CELL COUNT (BEAKER) (test owdi=108) 10.1 K/ L 3.5-10.5 RED BLOOD CELL COUNT (BEAKER) (test skrd=502) 3.54 M/ L 4.63-6.08 HEMOGLOBIN (BEAKER) (test tbes=808) 9.8 GM/DL 13.7-17.5 HEMATOCRIT (BEAKER) (test lnnt=380) 31.9 % 40.1-51.0 MEAN CORPUSCULAR VOLUME (BEAKER) (test cqcx=447) 90.1 fL 79.0-92.2 MEAN CORPUSCULAR HEMOGLOBIN (BEAKER) (test 27.7 pg 25.7-32.2 lgon=234) MEAN CORPUSCULAR HEMOGLOBIN CONC (BEAKER) (test 30.7 GM/DL 32.3-36.5 fcou=248) RED CELL DISTRIBUTION WIDTH (BEAKER) (test 17.7 % 11.6-14.4 vnkm=016) PLATELET COUNT (BEAKER) (test eiwa=615) 209 K/CU MM 150-450 MEAN PLATELET VOLUME (BEAKER) (test tqtm=724) 9.9 fL 9.4-12.4 NUCLEATED RED BLOOD CELLS (BEAKER) (test 0 /100 WBC 0-0 wera=522) NEUTROPHILS RELATIVE PERCENT (BEAKER) (test 77 % cxtj=224) LYMPHOCYTES RELATIVE PERCENT (BEAKER) (test 11 % zcyp=150) MONOCYTES RELATIVE PERCENT (BEAKER) (test 10 % tbhp=676) EOSINOPHILS RELATIVE PERCENT (BEAKER) (test 2 % ignq=583) BASOPHILS RELATIVE PERCENT (BEAKER) (test 0 % bwin=819) NEUTROPHILS ABSOLUTE COUNT (BEAKER) (test 7.78 K/ L 1.78-5.38 ffuu=808) LYMPHOCYTES ABSOLUTE COUNT (BEAKER) (test 1.07 K/ L 1.32-3.57 qzgq=438) MONOCYTES ABSOLUTE COUNT (BEAKER) (test 1.04 K/ L 0.30-0.82 czuv=696) EOSINOPHILS ABSOLUTE COUNT (BEAKER) (test 0.17 K/ L 0.04-0.54 nnst=228) BASOPHILS ABSOLUTE COUNT (BEAKER) (test 0.02 K/ L 0.01-0.08 hdlu=908) IMMATURE GRANULOCYTES-RELATIVE PERCENT (BEAKER) 0 % 0-1 (test ejhq=5658) POCT-GLUCOSE [id number] 01:36:00 Test Item Value Reference Range Comments POC-GLUCOSE METER (BEAKER) 97 mg/dL 70-110 TESTED AT [facility] [address] [facility] (test vido=7505) [facility] [address] POCT-GLUCOSE [id number] 22:56:00 Test Item Value Reference Range Comments POC-GLUCOSE METER (BEAKER) 70 mg/dL 70-110 TESTED AT [facility] [address] (test gffm=0076) [facility] [address] [id number] 19:59:00 Test Item Value Reference Range Comments PHOSPHORUS (BEAKER) (test pzxa=412) 3.2 mg/dL 2.3-4.7 [id number] 19:59:00 Test Item Value Reference Range Comments MAGNESIUM (BEAKER) (test nxwt=598) 1.9 mg/dL 1.6-2.6 COMPREHENSIVE METABOLIC [id number] 19:59:00 Test Item Value Reference Range Comments TOTAL PROTEIN (BEAKER) 7.4 gm/dL 6.0-8.3 (test kego=026) ALBUMIN (BEAKER) (test 2.1 g/dL 3.5-5.0 ehpi=8941) ALKALINE PHOSPHATASE 142 U/L 40-150 (BEAKER) (test pauk=519) BILIRUBIN TOTAL (BEAKER) 0.2 mg/dL 0.2-1.2 (test lgrt=701) SODIUM (BEAKER) (test 136 meq/L 136-145 dxsh=948) POTASSIUM (BEAKER) (test 4.0 meq/L 3.5-5.1 vrst=885) CHLORIDE (BEAKER) (test 102 meq/L 98-107 mhyp=782) CO2 (BEAKER) (test 29 meq/L 22-29 scxi=148) BLOOD UREA NITROGEN 27 mg/dL 7-21 (BEAKER) (test tkwo=391) CREATININE (BEAKER) (test 1.33 mg/dL 0.57-1.25 jbch=573) GLUCOSE RANDOM (BEAKER) 51 mg/dL 70-105 (test lkmo=613) CALCIUM (BEAKER) (test 8.6 mg/dL 8.4-10.2 rxpl=082) AST (SGOT) (BEAKER) (test 37 U/L 5-34 spgj=294) ALT (SGPT) (BEAKER) (test 27 U/L 6-55 lysr=238) EGFR (BEAKER) (test 63 mL/min/1.73 sq m ESTIMATED GFR IS NOT bmdr=2163) ACCURATE CREATININE CLEARANCE IN PREDICTING GLOMERULAR FILTRATION RATE. ESTIMATED GFR IS NOT APPLICABLE FOR DIALYSIS PATIENTS. CBC W/PLT COUNT & AUTO [id number] 19:45:00 Test Item Value Reference Range Comments WHITE BLOOD CELL COUNT (BEAKER) (test yjls=288) 10.5 K/ L 3.5-10.5 RED BLOOD CELL COUNT (BEAKER) (test ifqu=803) 3.65 M/ L 4.63-6.08 HEMOGLOBIN (BEAKER) (test ujdk=883) 10.2 GM/DL 13.7-17.5 HEMATOCRIT (BEAKER) (test zcyh=554) 33.6 % 40.1-51.0 MEAN CORPUSCULAR VOLUME (BEAKER) (test vxwo=297) 92.1 fL 79.0-92.2 MEAN CORPUSCULAR HEMOGLOBIN (BEAKER) (test 27.9 pg 25.7-32.2 cbcz=744) MEAN CORPUSCULAR HEMOGLOBIN CONC (BEAKER) (test 30.4 GM/DL 32.3-36.5 orbf=447) RED CELL DISTRIBUTION WIDTH (BEAKER) (test 17.6 % 11.6-14.4 qpwd=532) PLATELET COUNT (BEAKER) (test zlws=192) 213 K/CU MM 150-450 MEAN PLATELET VOLUME (BEAKER) (test ilrr=692) 10.7 fL 9.4-12.4 NUCLEATED RED BLOOD CELLS (BEAKER) (test 0 /100 WBC 0-0 gwuj=795) NEUTROPHILS RELATIVE PERCENT (BEAKER) (test 81 % wskz=125) LYMPHOCYTES RELATIVE PERCENT (BEAKER) (test 8 % ofdu=748) MONOCYTES RELATIVE PERCENT (BEAKER) (test 9 % bmpj=184) EOSINOPHILS RELATIVE PERCENT (BEAKER) (test 2 % sfre=034) BASOPHILS RELATIVE PERCENT (BEAKER) (test 0 % pqgi=850) NEUTROPHILS ABSOLUTE COUNT (BEAKER) (test 8.47 K/ L 1.78-5.38 tbyo=375) LYMPHOCYTES ABSOLUTE COUNT (BEAKER) (test 0.79 K/ L 1.32-3.57 ibed=559) MONOCYTES ABSOLUTE COUNT (BEAKER) (test 0.96 K/ L 0.30-0.82 rvfo=832) EOSINOPHILS ABSOLUTE COUNT (BEAKER) (test 0.22 K/ L 0.04-0.54 mdky=476) BASOPHILS ABSOLUTE COUNT (BEAKER) (test 0.03 K/ L 0.01-0.08 lmif=622) IMMATURE GRANULOCYTES-RELATIVE PERCENT (BEAKER) 0 % 0-1 (test ujge=8900) HEMOGLOBIN AND [id number] 19:43:00 Test Item Value Reference Range Comments HEMOGLOBIN (BEAKER) (test myon=117) 10.2 GM/DL 13.7-17.5 HEMATOCRIT (BEAKER) (test pjfr=152) 33.6 % 40.1-51.0 POCT-GLUCOSE [id number] 16:53:00 Test Item Value Reference Range Comments POC-GLUCOSE METER (BEAKER) 83 mg/dL 70-110 TESTED AT [address] (test axjz=9607) [place] [id number] PERIPHERAL BLOOD SMEAR - PATHOLOGIST [id number] 11:31:00 Test Item Value Reference Range Comments RBC MORPHOLOGY (BEAKER) Polychromasia (test laal=2144) RBC MORPHOLOGY (BEAKER) Anisocytosis (test vykd=76344) RBC MORPHOLOGY (BEAKER) Poikilocytosis (test xogo=29739) WBC MORPHOLOGY (BEAKER) Toxic Granulation (test sewy=4744) PERIPHERAL SMR REVIEW Cell counts confirmed. (BEAKER) (test kkcs=2115) [id number] Rafaela Dowell M.D. (electronic (BEAKER) (test bhuj=8503) signature) POCT-GLUCOSE [id number] 08:24:00 Test Item Value Reference Range Comments POC-GLUCOSE METER (BEAKER) 236 mg/dL 70-110 TESTED AT [address] (test indb=4417) [place] [id number] 07:35:00 Test Item Value Reference Range Comments HAPTOGLOBIN (BEAKER) (test suld=778) 185 mg/dL 14-258 BASIC METABOLIC [id number] 07:34:00 Test Item Value Reference Range Comments SODIUM (BEAKER) (test 141 meq/L 136-145 fbga=577) POTASSIUM (BEAKER) (test 4.2 meq/L 3.5-5.1 rqvr=541) CHLORIDE (BEAKER) (test 112 meq/L 98-107 rdfo=432) CO2 (BEAKER) (test 26 meq/L 22-29 czho=221) BLOOD UREA NITROGEN 23 mg/dL 7-21 (BEAKER) (test pgic=809) CREATININE (BEAKER) (test 1.23 mg/dL 0.57-1.25 kevw=357) GLUCOSE RANDOM (BEAKER) 186 mg/dL 70-105 (test mjjq=791) CALCIUM (BEAKER) (test 8.0 mg/dL 8.4-10.2 rwep=392) EGFR (BEAKER) (test 69 mL/min/1.73 sq m ESTIMATED GFR IS NOT odot=6121) ACCURATE CREATININE CLEARANCE IN PREDICTING GLOMERULAR FILTRATION RATE. ESTIMATED GFR IS NOT APPLICABLE FOR DIALYSIS PATIENTS. CBC W/PLT COUNT & AUTO [id number] 07:21:00 Test Item Value Reference Range Comments WHITE BLOOD CELL COUNT (BEAKER) (test pumq=657) 8.9 K/ L 3.5-10.5 RED BLOOD CELL COUNT (BEAKER) (test ykvp=478) 3.26 M/ L 4.63-6.08 HEMOGLOBIN (BEAKER) (test yrcv=619) 9.1 GM/DL 13.7-17.5 HEMATOCRIT (BEAKER) (test djzw=285) 29.6 % 40.1-51.0 MEAN CORPUSCULAR VOLUME (BEAKER) (test ruqj=648) 90.8 fL 79.0-92.2 MEAN CORPUSCULAR HEMOGLOBIN (BEAKER) (test 27.9 pg 25.7-32.2 lfwa=334) MEAN CORPUSCULAR HEMOGLOBIN CONC (BEAKER) (test 30.7 GM/DL 32.3-36.5 bwbv=210) RED CELL DISTRIBUTION WIDTH (BEAKER) (test 17.9 % 11.6-14.4 togn=379) PLATELET COUNT (BEAKER) (test beij=046) 211 K/CU MM 150-450 MEAN PLATELET VOLUME (BEAKER) (test ryln=873) 10.3 fL 9.4-12.4 NUCLEATED RED BLOOD CELLS (BEAKER) (test 0 /100 WBC 0-0 wfnk=921) NEUTROPHILS RELATIVE PERCENT (BEAKER) (test 73 % bggc=588) LYMPHOCYTES RELATIVE PERCENT (BEAKER) (test 12 % tzsc=818) MONOCYTES RELATIVE PERCENT (BEAKER) (test 12 % zsrl=931) EOSINOPHILS RELATIVE PERCENT (BEAKER) (test 2 % iqog=578) BASOPHILS RELATIVE PERCENT (BEAKER) (test 0 % udww=152) NEUTROPHILS ABSOLUTE COUNT (BEAKER) (test 6.49 K/ L 1.78-5.38 wxpr=906) LYMPHOCYTES ABSOLUTE COUNT (BEAKER) (test 1.11 K/ L 1.32-3.57 ebie=989) MONOCYTES ABSOLUTE COUNT (BEAKER) (test 1.08 K/ L 0.30-0.82 vepn=385) EOSINOPHILS ABSOLUTE COUNT (BEAKER) (test 0.19 K/ L 0.04-0.54 ckms=440) BASOPHILS ABSOLUTE COUNT (BEAKER) (test 0.02 K/ L 0.01-0.08 vtlc=651) IMMATURE GRANULOCYTES-RELATIVE PERCENT (BEAKER) 0 % 0-1 (test yebp=2232) POCT-GLUCOSE [id number] 06:39:00 Test Item Value Reference Range Comments POC-GLUCOSE METER (BEAKER) 239 mg/dL 70-110 TESTED AT [address] (test xavw=1219) [place] [address] POCT-GLUCOSE [id number] 23:40:00 Test Item Value Reference Range Comments POC-GLUCOSE METER (BEAKER) 234 mg/dL 70-110 TESTED AT [address] (test ahua=9262) [place] [id number] POCT-GLUCOSE [id number] 17:26:00 Test Item Value Reference Range Comments POC-GLUCOSE METER (BEAKER) 257 mg/dL 70-110 TESTED AT [address] (test dags=8025) [facility] [address] BASIC METABOLIC [id number] 16:15:00 Test Item Value Reference Range Comments SODIUM (BEAKER) (test 140 meq/L 136-145 mppa=559) POTASSIUM (BEAKER) (test 4.6 meq/L 3.5-5.1 oavr=278) CHLORIDE (BEAKER) (test 111 meq/L 98-107 sewp=610) CO2 (BEAKER) (test 25 meq/L 22-29 elzd=160) BLOOD UREA NITROGEN 24 mg/dL 7-21 (BEAKER) (test fasm=406) CREATININE (BEAKER) (test 1.21 mg/dL 0.57-1.25 cewh=252) GLUCOSE RANDOM (BEAKER) 195 mg/dL 70-105 (test wmcz=835) CALCIUM (BEAKER) (test 8.2 mg/dL 8.4-10.2 hnwj=842) EGFR (BEAKER) (test 71 mL/min/1.73 sq m ESTIMATED GFR IS NOT sknt=9656) ACCURATE CREATININE CLEARANCE IN PREDICTING GLOMERULAR FILTRATION RATE. ESTIMATED GFR IS NOT APPLICABLE FOR DIALYSIS PATIENTS. RETICULOCYTE [id number] 15:59:00 Test Item Value Reference Range Comments RETICULOCYTE COUNT PCT (BEAKER) (test zqss=232) 2.3 % 0.5-1.8 HEPATIC FUNCTION [id number] 13:31:00 Test Item Value Reference Range Comments TOTAL PROTEIN (BEAKER) (test 4.8 gm/dL 6.0-8.3 Specimen slightly hemolyzed zhtr=173) ALBUMIN (BEAKER) (test 1.2 g/dL 3.5-5.0 Specimen slightly hemolyzed obqm=0460) BILIRUBIN TOTAL (BEAKER) (test 0.2 mg/dL 0.2-1.2 Specimen slightly hemolyzed gmrm=400) BILIRUBIN DIRECT (BEAKER) (test 0.1 mg/dL 0.1-0.5 Specimen slightly hemolyzed gyzw=569) ALKALINE PHOSPHATASE (BEAKER) 74 U/L 40-150 (test live=553) AST (SGOT) (BEAKER) (test 38 U/L 5-34 Specimen slightly hemolyzed eesd=919) ALT (SGPT) (BEAKER) (test 19 U/L 6-55 Specimen slightly hemolyzed ejxi=227) LACTATE DEHYDROGENASE (LDH)[id number] 13:30:00 Test Item Value Reference Range Comments LACTATE DEHYDROGENASE (BEAKER) 338 U/L 125-220 Specimen slightly hemolyzed (test tpxn=561) CBC W/PLT COUNT & AUTO [id number] 13:17:00 Test Item Value Reference Range Comments WHITE BLOOD CELL COUNT (BEAKER) (test jmom=145) 11.2 K/ L 3.5-10.5 RED BLOOD CELL COUNT (BEAKER) (test utyh=251) 3.14 M/ L 4.63-6.08 HEMOGLOBIN (BEAKER) (test usat=552) 8.6 GM/DL 13.7-17.5 HEMATOCRIT (BEAKER) (test vjir=425) 28.2 % 40.1-51.0 MEAN CORPUSCULAR VOLUME (BEAKER) (test ylts=829) 89.8 fL 79.0-92.2 MEAN CORPUSCULAR HEMOGLOBIN (BEAKER) (test 27.4 pg 25.7-32.2 rbcj=546) MEAN CORPUSCULAR HEMOGLOBIN CONC (BEAKER) (test 30.5 GM/DL 32.3-36.5 thup=506) RED CELL DISTRIBUTION WIDTH (BEAKER) (test 17.2 % 11.6-14.4 fyoe=143) PLATELET COUNT (BEAKER) (test rkyr=115) 196 K/CU MM 150-450 MEAN PLATELET VOLUME (BEAKER) (test zzno=702) 10.2 fL 9.4-12.4 NUCLEATED RED BLOOD CELLS (BEAKER) (test 0 /100 WBC 0-0 aken=104) NEUTROPHILS RELATIVE PERCENT (BEAKER) (test 79 % ueqt=502) LYMPHOCYTES RELATIVE PERCENT (BEAKER) (test 9 % torg=655) MONOCYTES RELATIVE PERCENT (BEAKER) (test 11 % apbs=588) EOSINOPHILS RELATIVE PERCENT (BEAKER) (test 1 % htxz=292) BASOPHILS RELATIVE PERCENT (BEAKER) (test 0 % ssoi=753) NEUTROPHILS ABSOLUTE COUNT (BEAKER) (test 8.88 K/ L 1.78-5.38 sqlr=760) LYMPHOCYTES ABSOLUTE COUNT (BEAKER) (test 0.96 K/ L 1.32-3.57 ekzl=433) MONOCYTES ABSOLUTE COUNT (BEAKER) (test 1.26 K/ L 0.30-0.82 cfsr=341) EOSINOPHILS ABSOLUTE COUNT (BEAKER) (test 0.06 K/ L 0.04-0.54 ubgx=207) BASOPHILS ABSOLUTE COUNT (BEAKER) (test 0.02 K/ L 0.01-0.08 bktn=153) IMMATURE GRANULOCYTES-RELATIVE PERCENT (BEAKER) 0 % 0-1 (test tymc=4932) POCT-GLUCOSE [id number] 12:30:00 Test Item Value Reference Range Comments POC-GLUCOSE METER (BEAKER) 193 mg/dL 70-110 TESTED AT [facility] [address] [facility] (test sghl=7035) [place] [address] VANCOMYCIN LEVEL, [id number] 09:00:00 Test Item Value Reference Range Comments VANCOMYCIN RANDOM (BEAKER) (test chdc=655) 22.6 ug/mL Reference Range: No [id number] 07:29:00 Test Item Value Reference Range Comments MAGNESIUM (BEAKER) (test ujyp=563) 1.9 mg/dL 1.6-2.6 BASIC METABOLIC [id number] 07:29:00 Test Item Value Reference Range Comments SODIUM (BEAKER) (test 141 meq/L 136-145 zqwr=524) POTASSIUM (BEAKER) (test 3.7 meq/L 3.5-5.1 lrul=716) CHLORIDE (BEAKER) (test 113 meq/L 98-107 eeql=562) CO2 (BEAKER) (test 23 meq/L 22-29 iqxg=548) BLOOD UREA NITROGEN 23 mg/dL 7-21 (BEAKER) (test igel=241) CREATININE (BEAKER) (test 1.11 mg/dL 0.57-1.25 eony=815) GLUCOSE RANDOM (BEAKER) 100 mg/dL 70-105 (test fyke=004) CALCIUM (BEAKER) (test 8.2 mg/dL 8.4-10.2 ipzp=232) EGFR (BEAKER) (test 78 mL/min/1.73 sq m ESTIMATED GFR IS NOT apqi=6583) ACCURATE CREATININE CLEARANCE IN PREDICTING GLOMERULAR FILTRATION RATE. ESTIMATED GFR IS NOT APPLICABLE FOR DIALYSIS PATIENTS. CBC W/PLT COUNT & AUTO [id number] 07:00:00 Test Item Value Reference Range Comments WHITE BLOOD CELL COUNT (BEAKER) (test svoq=690) 11.9 K/ L 3.5-10.5 RED BLOOD CELL COUNT (BEAKER) (test eiaq=821) 2.36 M/ L 4.63-6.08 HEMOGLOBIN (BEAKER) (test lbjr=803) 6.6 GM/DL 13.7-17.5 HEMATOCRIT (BEAKER) (test sill=107) 21.2 % 40.1-51.0 MEAN CORPUSCULAR VOLUME (BEAKER) (test irzs=809) 89.8 fL 79.0-92.2 MEAN CORPUSCULAR HEMOGLOBIN (BEAKER) (test 28.0 pg 25.7-32.2 stqb=772) MEAN CORPUSCULAR HEMOGLOBIN CONC (BEAKER) (test 31.1 GM/DL 32.3-36.5 kuid=471) RED CELL DISTRIBUTION WIDTH (BEAKER) (test 18.6 % 11.6-14.4 nyxm=758) PLATELET COUNT (BEAKER) (test ilnf=729) 210 K/CU MM 150-450 MEAN PLATELET VOLUME (BEAKER) (test sazz=769) 10.7 fL 9.4-12.4 NUCLEATED RED BLOOD CELLS (BEAKER) (test 0 /100 WBC 0-0 hcrn=916) NEUTROPHILS RELATIVE PERCENT (BEAKER) (test 77 % nhxd=626) LYMPHOCYTES RELATIVE PERCENT (BEAKER) (test 10 % cgli=190) MONOCYTES RELATIVE PERCENT (BEAKER) (test 12 % utrf=871) EOSINOPHILS RELATIVE PERCENT (BEAKER) (test 0 % btbn=020) BASOPHILS RELATIVE PERCENT (BEAKER) (test 0 % wejy=812) NEUTROPHILS ABSOLUTE COUNT (BEAKER) (test 9.19 K/ L 1.78-5.38 bgla=176) LYMPHOCYTES ABSOLUTE COUNT (BEAKER) (test 1.21 K/ L 1.32-3.57 ixun=590) MONOCYTES ABSOLUTE COUNT (BEAKER) (test 1.38 K/ L 0.30-0.82 bogq=316) EOSINOPHILS ABSOLUTE COUNT (BEAKER) (test 0.03 K/ L 0.04-0.54 rdeb=358) BASOPHILS ABSOLUTE COUNT (BEAKER) (test 0.04 K/ L 0.01-0.08 rjfj=448) IMMATURE GRANULOCYTES-RELATIVE PERCENT (BEAKER) 0 % 0-1 (test etuy=7707) POCT-GLUCOSE [id number] 06:47:00 Test Item Value Reference Range Comments POC-GLUCOSE METER (BEAKER) 128 mg/dL 70-110 TESTED AT [address] (test hnzd=5866) [facility] [address] POCT-GLUCOSE [id number] 01:25:00 Test Item Value Reference Range Comments POC-GLUCOSE METER (BEAKER) 81 mg/dL 70-110 TESTED AT [address] (test bkfr=1143) [facility] [address] VANCOMYCIN LEVEL, [id number] 21:59:00 Test Item Value Reference Range Comments VANCOMYCIN TROUGH (BEAKER) (test tdpv=067) 26.3 ug/mL 10.0-20.0 WAIT FOR LEVEL TO RETURN BEFORE GIVING DOSE. If vancomycin trough level > 20 , HOLD dose and contact MD and pharmacist.POCT-GLUCOSE [id number] 17:48:00 Test Item Value Reference Range Comments POC-GLUCOSE METER (BEAKER) 96 mg/dL 70-110 TESTED AT [address] (test bkhn=0958) [facility] [address] POCT-GLUCOSE [id number] 15:40:00 Test Item Value Reference Range Comments POC-GLUCOSE METER (BEAKER) 106 mg/dL 70-110 TESTED AT [address] (test wbee=1948) [facility] [address] CBC W/PLT COUNT & AUTO [id number] 14:21:00 Test Item Value Reference Range Comments WHITE BLOOD CELL COUNT (BEAKER) (test hntt=824) 12.6 K/ L 3.5-10.5 RED BLOOD CELL COUNT (BEAKER) (test azqb=129) 2.64 M/ L 4.63-6.08 HEMOGLOBIN (BEAKER) (test tzpx=436) 7.3 GM/DL 13.7-17.5 HEMATOCRIT (BEAKER) (test fdio=360) 23.8 % 40.1-51.0 MEAN CORPUSCULAR VOLUME (BEAKER) (test dynt=140) 90.2 fL 79.0-92.2 MEAN CORPUSCULAR HEMOGLOBIN (BEAKER) (test 27.7 pg 25.7-32.2 xesm=755) MEAN CORPUSCULAR HEMOGLOBIN CONC (BEAKER) (test 30.7 GM/DL 32.3-36.5 zikh=387) RED CELL DISTRIBUTION WIDTH (BEAKER) (test 18.2 % 11.6-14.4 yogz=338) PLATELET COUNT (BEAKER) (test taln=541) 225 K/CU MM 150-450 MEAN PLATELET VOLUME (BEAKER) (test zsij=626) 10.6 fL 9.4-12.4 NUCLEATED RED BLOOD CELLS (BEAKER) (test 0 /100 WBC 0-0 lrqw=764) (CELLAVISION MANUAL DIFF)[id number] 14:21:00 Test Item Value Reference Range Comments NEUTROPHILS - REL (CELLAVISION)(BEAKER) (test 89 % jeei=0200) LYMPHOCYTES - REL (CELLAVISION)(BEAKER) (test 5 % zzln=3113) MONOCYTES - REL (CELLAVISION)(BEAKER) (test 5 % uysy=2728) ATYPICAL LYMPHOCYTES - REL (CELLAVISION)(BEAKER) 1 % 0-0 (test xcpq=2875) NEUTROPHILS - ABS (CELLAVISION)(BEAKER) (test 11.21 K/ul 1.78-5.38 xtso=2436) LYMPHOCYTES - ABS (CELLAVISION)(BEAKER) (test 0.63 K/ul 1.32-3.57 nuvs=0741) MONOCYTES - ABS (CELLAVISION)(BEAKER) (test 0.63 K/uL 0.30-0.82 jbgf=4944) ATYPICAL LYMPHOCYTES - ABS (CELLAVISION)(BEAKER) 0.13 K/uL 0.00-0.00 (test gzca=7388) TOTAL COUNTED (BEAKER) (test cojq=8420) 100 PLT MORPHOLOGY (BEAKER) (test kxhh=625) Normal SMUDGE CELLS (BEAKER) (test sddk=1150) Present ANISOCYTOSIS (BEAKER) (test doqf=317) 1+ few POIKILOCYTES (BEAKER) (test rksx=611) 2+ moderate CESILIA CELLS (BEAKER) (test okyq=038) 1+ few PLATELET CONCENTRATION (CELLAVISION)(BEAKER) Adequate (test lbco=4382) Received comment: User comments: Slide comments:POCT-GLUCOSE [id number] 12: 02:00 Test Item Value Reference Range Comments POC-GLUCOSE METER (BEAKER) 84 mg/dL 70-110 TESTED AT [facility] [address] [facility] (test diix=2180) [facility] [address] [id number] 07:12:00 Test Item Value Reference Range Comments MAGNESIUM (BEAKER) (test jtna=638) 1.6 mg/dL 1.6-2.6 BASIC METABOLIC [id number] 07:12:00 Test Item Value Reference Range Comments SODIUM (BEAKER) (test 140 meq/L 136-145 txml=769) POTASSIUM (BEAKER) (test 3.7 meq/L 3.5-5.1 cckq=409) CHLORIDE (BEAKER) (test 110 meq/L 98-107 zjuz=025) CO2 (BEAKER) (test 25 meq/L 22-29 nnhk=733) BLOOD UREA NITROGEN 27 mg/dL 7-21 (BEAKER) (test zprn=036) CREATININE (BEAKER) (test 1.07 mg/dL 0.57-1.25 rkab=798) GLUCOSE RANDOM (BEAKER) 67 mg/dL 70-105 (test kbbc=712) CALCIUM (BEAKER) (test 8.5 mg/dL 8.4-10.2 advb=011) EGFR (BEAKER) (test 81 mL/min/1.73 sq m ESTIMATED GFR IS NOT iyxl=6550) ACCURATE CREATININE CLEARANCE IN PREDICTING GLOMERULAR FILTRATION RATE. ESTIMATED GFR IS NOT APPLICABLE FOR DIALYSIS PATIENTS. POCT-GLUCOSE [id number] 06:24:00 Test Item Value Reference Range Comments POC-GLUCOSE METER (BEAKER) 71 mg/dL 70-110 TESTED AT [address] (test qhjg=0842) [place] [address] POCT-GLUCOSE [id number] 00:20:00 Test Item Value Reference Range Comments POC-GLUCOSE METER (BEAKER) 106 mg/dL 70-110 TESTED AT [address] (test rfeb=3669) [place] [address] POCT-GLUCOSE [id number] 18:43:00 Test Item Value Reference Range Comments POC-GLUCOSE METER (BEAKER) 104 mg/dL 70-110 TESTED AT [address] (test taqw=0508) [place] [address] POCT-GLUCOSE [id number] 12:56:00 Test Item Value Reference Range Comments POC-GLUCOSE METER (BEAKER) 113 mg/dL 70-110 TESTED AT [address] (test acrm=7030) [place] [address] CBC W/PLT COUNT & AUTO [id number] 11:01:00 Test Item Value Reference Range Comments WHITE BLOOD CELL COUNT (BEAKER) (test bdkc=651) 12.9 K/ L 3.5-10.5 RED BLOOD CELL COUNT (BEAKER) (test ipnb=689) 2.66 M/ L 4.63-6.08 HEMOGLOBIN (BEAKER) (test dsim=472) 7.5 GM/DL 13.7-17.5 HEMATOCRIT (BEAKER) (test tqtj=256) 24.1 % 40.1-51.0 MEAN CORPUSCULAR VOLUME (BEAKER) (test tqqh=392) 90.6 fL 79.0-92.2 MEAN CORPUSCULAR HEMOGLOBIN (BEAKER) (test 28.2 pg 25.7-32.2 ssag=585) MEAN CORPUSCULAR HEMOGLOBIN CONC (BEAKER) (test 31.1 GM/DL 32.3-36.5 tmxs=610) RED CELL DISTRIBUTION WIDTH (BEAKER) (test 18.4 % 11.6-14.4 mrmc=915) PLATELET COUNT (BEAKER) (test urvw=701) 208 K/CU MM 150-450 MEAN PLATELET VOLUME (BEAKER) (test zlio=448) 10.8 fL 9.4-12.4 NUCLEATED RED BLOOD CELLS (BEAKER) (test 0 /100 WBC 0-0 lpnq=271) (CELLAVISION MANUAL DIFF)[id number] 11:01:00 Test Item Value Reference Range Comments NEUTROPHILS - REL (CELLAVISION)(BEAKER) (test 86 % buvl=1811) LYMPHOCYTES - REL (CELLAVISION)(BEAKER) (test 1 % rmjj=1685) MONOCYTES - REL (CELLAVISION)(BEAKER) (test 9 % ccwg=3991) BANDS - REL (CELLAVISION)(BEAKER) (test 3 % 0-10 opwv=2284) ATYPICAL LYMPHOCYTES - REL (CELLAVISION)(BEAKER) 1 % 0-0 (test ilmd=3122) NEUTROPHILS - ABS (CELLAVISION)(BEAKER) (test 11.09 K/ul 1.78-5.38 hdsb=3126) LYMPHOCYTES - ABS (CELLAVISION)(BEAKER) (test 0.13 K/ul 1.32-3.57 umhk=1803) MONOCYTES - ABS (CELLAVISION)(BEAKER) (test 1.16 K/uL 0.30-0.82 zpfy=1893) BANDS - ABS (CELLAVISION)(BEAKER) (test 0.39 K/uL 0.00-0.80 upxp=7503) ATYPICAL LYMPHOCYTES - ABS (CELLAVISION)(BEAKER) 0.13 K/uL 0.00-0.00 (test ahra=2066) TOTAL COUNTED (BEAKER) (test ajrv=7407) 100 WBC MORPHOLOGY (BEAKER) (test pljw=737) Normal PLT MORPHOLOGY (BEAKER) (test jjpn=102) Normal POLYCHROMATOPHILLIC RBCS(BEAKER) (test aujn=814) 1+ few HYPOCHROMIA (BEAKER) (test qtac=530) 1+ few ARTIFACT (CELLAVISION)(BEAKER) (test ftwx=3234) Present PLATELET CONCENTRATION (CELLAVISION)(BEAKER) Adequate (test wgke=7627) Received comment: User comments: Slide comments:POCT-GLUCOSE [id number] 07: 57:00 Test Item Value Reference Range Comments POC-GLUCOSE METER (BEAKER) 96 mg/dL 70-110 TESTED AT [facility] [address] [facility] (test dovo=[id number]) [facility] [address] [id number] 07:34:00 Test Item Value Reference Range Comments MAGNESIUM (BEAKER) (test qknm=509) 1.8 mg/dL 1.6-2.6 BASIC METABOLIC [id number] 07:34:00 Test Item Value Reference Range Comments SODIUM (BEAKER) (test 138 meq/L 136-145 zyui=294) POTASSIUM (BEAKER) (test 4.0 meq/L 3.5-5.1 clid=196) CHLORIDE (BEAKER) (test 108 meq/L 98-107 emnj=655) CO2 (BEAKER) (test 26 meq/L 22-29 knli=028) BLOOD UREA NITROGEN 33 mg/dL 7-21 (BEAKER) (test amsl=747) CREATININE (BEAKER) (test 1.10 mg/dL 0.57-1.25 nhvs=892) GLUCOSE RANDOM (BEAKER) 79 mg/dL 70-105 (test yoxg=313) CALCIUM (BEAKER) (test 8.4 mg/dL 8.4-10.2 fnsp=159) EGFR (BEAKER) (test 79 mL/min/1.73 sq m ESTIMATED GFR IS NOT moqv=[id number]) ACCURATE CREATININE CLEARANCE IN PREDICTING GLOMERULAR FILTRATION RATE. ESTIMATED GFR IS NOT APPLICABLE FOR DIALYSIS PATIENTS.
[2018-11-29] MEDS ORDERED: LIDOCAINE 1% W/EPI 1:100,000 MDV 50 ML VIAL ONE (05:13)
[2018-11-29] MEDS ORDERED: SILVER NITRATE 1 APPL TOP ONE ×2 (05:24→05:37)
--- NOTE | 2018-11-29 05:29 | EDPHYS ---
Physician Documentation [facility] Name: Leonardo Kumari Age: 78 yrs Sex: Male : 1940 Arrival Date: 11/29/2018 Time: 04:52 Bed 13 Private MD: ED Physician Artur Peck HPI: 11/29 05:43 This 78 yrs old Black Male presents to ER via EMS with complaints of bleeding from old gs gastrostomy site. 05:43 The patient has experienced similar episodes in the past, a few times. The patient has gs been recently seen at the [facility] Emergency Department, yesterday. Historical: - Allergies: 05:08 Stadol; lp1 05:08 Versed; lp1 - Home Meds: 05:08 multivitamin with minerals Oral 5 mL daily [Active]; Novolog 100 unit/mL Sub-Q soln lp1 twice a day [Active]; paroxetine HCl 10 mg Oral tab 1 tab once daily [Active]; Pepcid 40 mg oral tab nightly [Active]; tramadol 50 mg Oral tab 1 tab every 6 hours for Pain [Active]; acetaminophen-codeine 300-30 mg Oral tab 1 tab every 6 hours for Pain [Active]; amlodipine 5 mg tab 1 tab once daily [Active]; aspirin 81 mg Oral TbEC 1 tab once daily [Active]; atorvastatin 80 mg Oral tab 1 tab nightly [Active]; carvedilol 25 mg Oral tab 1 tab nightly [Active]; clopidogrel 75 mg Oral tab 1 tab once daily [Active]; cyclobenzaprine 10 mg Oral tab 1 tab every 8 hours for Muscle Spasm [Active]; docusate sodium 50 mg/5 mL Oral liqd 10 mL once daily [Active]; hydralazine 25 mg Oral tab every 8 hours for Hypertension [Active]; Levemir FlexTouch 100 unit/mL (3 mL) subcutaneous inpn 10 unit daily [Active]; - PMHx: 05:08 Allergic rhinitis; Aphasia; constipation; GI Bleed; High Cholesterol; Depression; lp1 Diabetes - NIDDM; Dementia; Contracture; DYSPHAGIA; Hypertension; GERD; Hemiplegia/hemiparesis; UTI; MRSA; Paraplegia; hypotension; - PSHx: 05:08 Unable to obtain; lp1 - Immunization history:: Adult Immunizations unknown. - Social history:: Smoking status: unknown. - Ebola Screening: : No symptoms or risks identified at this time. ROS: 05:43 Unable to obtain ROS due to baseline dementia. Exam: 05:43 Constitutional: The patient appears awake. gs 05:43 Abdomen/GI: Inspection: abdomen appears normal, Palpation: abdomen is soft and non-tender, in all quadrants, bleeding from skin edges. Vital Signs: 04:31 BP 112 / 80; Pulse 91; Resp 16; Temp 98.2(O); Pulse Ox 99% on R/A; Pain 8/10; jb4 05:15 BP 112 / 60; Pulse 86; Resp 18; Pulse Ox 100% on R/A; jb4 05:45 BP 109 / 61; Pulse 87; Resp 18; Pulse Ox 100% on R/A; jb4 06:45 BP 121 / 50; Pulse 88; Resp 18; Pulse Ox 100% on R/A; jb4 07:05 BP 119 / 63; Pulse 84; Resp 17; Temp 98.1(O); Pulse Ox 98% on R/A; Pain 6/10; rb1 08:00 BP 116 / 84; Pulse 88; Resp 16; Pulse Ox 99% ; sv Procedures: 05:43 Performed cauterized skin bleeders with agno3, placed once 3 cc lido with epi and one gs 3-0 vicryl dressing applied good hemostasis. MDM: 04:55 Patient medically screened. 05:43 Data reviewed: vital signs, nurses notes, old medical records. gs Administered Medications: 05:11 Drug: Silver Nitrate Applicators 1 application {Note: administered by ER provider..} jb4 Route: Topical; Site: wound; 05:11 Drug: Lidocaine (1 %) 10 mg {Note: Administered by ER provider.} Volume: 20 ml; Route: jb4 Infiltration; Disposition: 11/29/18 05:28 Discharged to Home. Impression: Gastrostomy complications, Gastrostomy hemorrhage. - Condition is Stable. - Medication Reconciliation Form, Thank You Letter, Antibiotic Education, Prescription Opioid Use form. - Follow up: Zach Soto MD; When: 1 - 2 days; Reason: Re-evaluation by your physician. Signatures: Tammy Cummings RN RN sv Flaca Evans RN RN lp1 Leonardo Talamantes RN RN jb4 Artur Peck MD MD gs Corrections: (The following items were deleted from the chart) 08:08 05:28 11/29/2018 05:28 Discharged to Home. Impression: Gastrostomy complications; sv Gastrostomy hemorrhage. Condition is Stable. Forms are Medication Reconciliation Form, Thank You Letter, Antibiotic Education, Prescription Opioid Use. Follow up: Zach Soto; When: 1 - 2 days; Reason: Re-evaluation by your physician. gs
--- NOTE | 2018-11-29 05:29 | ER ---
Nurse's Notes [facility] Name: Leonardo Kumari Age: 78 yrs Sex: Male : 1940 Arrival Date: 11/29/2018 Time: 04:52 Bed 13 Private MD: Diagnosis: Gastrostomy complications;Gastrostomy hemorrhage Presentation: 11/29 04:31 Presenting complaint: EMS states: Pt's nurse on scene reported that pt was bleeding jb4 from his beg tube site. 04:31 Transition of care: patient was not received from another setting of care. Onset of jb4 symptoms was November 29, 2018. Risk Assessment: Do you want to hurt yourself or someone else? Patient reports no desire to harm self or others. Initial Sepsis Screen: Does the patient meet any 2 criteria? No. Patient's initial sepsis screen is negative. Does the patient have a suspected source of infection? No. Patient's initial sepsis screen is negative. Care prior to arrival: None. 04:31 Method Of Arrival: EMS: [facility] jb4 04:31 Acuity: [place] 2 jb4 Triage Assessment: 04:31 General: Appears in no apparent distress. uncomfortable, Behavior is cooperative. Pain: jb4 Complains of pain in abdomen Pain currently is 8 out of 10 on a pain scale. EENT: No signs and/or symptoms were reported regarding the EENT system. Neuro: Level of Consciousness is awake, alert, obeys commands, Oriented to person. Cardiovascular: Patient's skin is warm and dry. Respiratory: Airway is patent Respiratory effort is even, unlabored, Respiratory pattern is regular, symmetrical. GI: Peg tube site to the left abdomen. actively bleeding, with clear drainage provider notified. : No signs and/or symptoms were reported regarding the genitourinary system. Derm: Skin is intact, Skin is dry, Skin is normal, Skin temperature is warm. Musculoskeletal: Range of motion: contractions noted to all limbs. Historical: - Allergies: 05:08 Stadol; lp1 05:08 Versed; lp1 - Home Meds: 05:08 multivitamin with minerals Oral 5 mL daily [Active]; Novolog 100 unit/mL Sub-Q soln lp1 twice a day [Active]; paroxetine HCl 10 mg Oral tab 1 tab once daily [Active]; Pepcid 40 mg oral tab nightly [Active]; tramadol 50 mg Oral tab 1 tab every 6 hours for Pain [Active]; acetaminophen-codeine 300-30 mg Oral tab 1 tab every 6 hours for Pain [Active]; amlodipine 5 mg tab 1 tab once daily [Active]; aspirin 81 mg Oral TbEC 1 tab once daily [Active]; atorvastatin 80 mg Oral tab 1 tab nightly [Active]; carvedilol 25 mg Oral tab 1 tab nightly [Active]; clopidogrel 75 mg Oral tab 1 tab once daily [Active]; cyclobenzaprine 10 mg Oral tab 1 tab every 8 hours for Muscle Spasm [Active]; docusate sodium 50 mg/5 mL Oral liqd 10 mL once daily [Active]; hydralazine 25 mg Oral tab every 8 hours for Hypertension [Active]; Levemir FlexTouch 100 unit/mL (3 mL) subcutaneous inpn 10 unit daily [Active]; - PMHx: 05:08 Allergic rhinitis; Aphasia; constipation; GI Bleed; High Cholesterol; Depression; lp1 Diabetes - NIDDM; Dementia; Contracture; DYSPHAGIA; Hypertension; GERD; Hemiplegia/hemiparesis; UTI; MRSA; Paraplegia; hypotension; - PSHx: 05:08 Unable to obtain; lp1 - Immunization history:: Adult Immunizations unknown. - Social history:: Smoking status: unknown. - Ebola Screening: : No symptoms or risks identified at this time. Screenin:09 Abuse screen: Denies threats or abuse. Denies injuries from another. Nutritional lp1 screening: On NPO diet. Tuberculosis screening: No symptoms or risk factors identified. Fall Risk Total Hsieh Fall Scale indicates High Risk Score (45 or more points). Fall prevention measures have been instituted. Side Rails Up X 2 Placed Close to Nursing Station Frequent Obs/Assessments Occuring As available patient and family educated on Fall Prevention Program and Strategies. Assessment: 04:31 General: see triage assessment.. jb4 05:11 Reassessment: Patient appears in no apparent distress at this time. Patient and/or jb4 family updated on plan of care and expected duration. Pain level reassessed. Provider at the bedside performing laceration repair. 05:33 Reassessment: Patient appears in no apparent distress at this time. Patient and/or jb4 family updated on plan of care and expected duration. Pain level reassessed. Report called to [facility]. General: Smells of. 05:55 Reassessment: PT is awaiting transport to [facility]. jb4 06:10 Reassessment: Patient appears in no apparent distress at this time. No changes from jb4 previously documented assessment. [facility] nurse reports that transportation will be approximately 2 hours. 07:00 General: Appears in no apparent distress. comfortable, Behavior is calm, cooperative. rb1 Neuro: Level of Consciousness is awake, Oriented to person. Cardiovascular: Capillary refill < 3 seconds is brisk in bilateral fingers. Respiratory: Airway is patent Respiratory effort is even, unlabored, Respiratory pattern is regular, symmetrical. Derm: Skin is dry, Skin is normal, Skin temperature is warm Bilateral arms and legs contracted. Musculoskeletal: Bilateral arms and legs contracted. 07:30 Reassessment: Patient appears in no apparent distress at this time. Discharge pending rb1 due to waiting for transportation. Vital Signs: 04:31 BP 112 / 80; Pulse 91; Resp 16; Temp 98.2(O); Pulse Ox 99% on R/A; Pain 8/10; jb4 05:15 BP 112 / 60; Pulse 86; Resp 18; Pulse Ox 100% on R/A; jb4 05:45 BP 109 / 61; Pulse 87; Resp 18; Pulse Ox 100% on R/A; jb4 06:45 BP 121 / 50; Pulse 88; Resp 18; Pulse Ox 100% on R/A; jb4 07:05 BP 119 / 63; Pulse 84; Resp 17; Temp 98.1(O); Pulse Ox 98% on R/A; Pain 6/10; rb1 08:00 BP 116 / 84; Pulse 88; Resp 16; Pulse Ox 99% ; sv ED Course: 04:31 Arm band placed on right wrist. jb4 04:52 Patient arrived in ED. jb4 04:55 Artur Peck MD is Attending Physician. gs 04:55 Triage completed. jb4 05:11 Patient has correct armband on for positive identification. Placed in gown. Bed in low jb4 position. Call light in reach. Side rails up X2. Pulse ox on. NIBP on. 05:11 Assist provider with laceration repair on left upper quadrant that was 2.5 cm. or less jb4 using Steri-strips. Set up tray. Performed by Artur Peck MD. 05:11 Dressings: 4X4s X 3; left upper quadrant. jb4 05:16 Leonardo Talamantes, RN is Primary Nurse. jb4 05:27 Zach Soto MD is Referral Physician. gs 06:47 Linen changed. Brief changed, and pt cleaned. jb4 Administered Medications: 05:11 Drug: Silver Nitrate Applicators 1 application {Note: administered by ER provider..} jb4 Route: Topical; Site: wound; 05:11 Drug: Lidocaine (1 %) 10 mg {Note: Administered by ER provider.} Volume: 20 ml; Route: jb4 Infiltration; Outcome: 05:28 Discharge ordered by . gs 08:08 Patient left the ED. sv 08:08 Discharged to care home. Transfer form completed. [facility] here to take pt sv back 08:08 Condition: stable 08:08 Discharge instructions given to care home, Instructed on discharge instructions, follow up and referral plans. Demonstrated understanding of instructions, follow-up care. Signatures: Tammy Cummings RN RN Flaca Evans RN RN lp1 Carla Escudero, RN RN [facility] Leonardo Talamantes RN RN 4 Artur Peck MD MD Corrections: (The following items were deleted from the chart) 05:34 05:11 Reassessment: Patient appears in no apparent distress at this time. Patient jb4 and/or family updated on plan of care and expected duration. Pain level reassessed. Patient is alert, oriented x 3, equal unlabored respirations, skin warm/dry/pink. Provider at the bedside performing laceration repair. jb4 06:30 04:31 Neuro: Level of Consciousness is awake, alert, obeys commands, Oriented to unable jb4 to assess due to pt history.. jb4 06:47 04:35 Dressings: 4X4s X 3; left upper quadrant jb4 jb4
[2018-11-29 08:12] VITALS: O2SAT 100
[2018-11-29 08:15] VITALS: BP 121/50
== END 2018-11-29 08:08 | disposition home or self-care (01) ==
LOC: ER 04:41
PROC: 0JQ80ZZ Repair Abdomen Subcutaneous Tissue and Fascia, Open Approach (ICD-10-PCS; principal; 2018-11-29)
DX: K94.21 Gastrostomy hemorrhage (principal); E11.9 Type 2 diabetes mellitus without complications; F32.9 Major depressive disorder, single episode, unspecified; E78.00 Pure hypercholesterolemia, unspecified; F03.90 Unspecified dementia, unspecified severity, without behavioral disturbance, psychotic disturbance, mood disturbance, and anxiety; I10 Essential (primary) hypertension; K21.9 Gastro-esophageal reflux disease without esophagitis
CPT/HCPCS: 99284

== ENCOUNTER 2018-12-04 17:26 | Observation (INO) | payer OTHER ==
--- OUTSIDE RECORDS SUMMARY | 2018-12-04 17:38 | XMS REPORT | Clinical Summary ---
:1940 Author Organization [facility] Address [address] [place] [address] Care Team Providers Name Role Phone Cielo [...] Date Type Specialty Care Team Description 08/10/2018 [facility] Internal [place]kov[place]uri, Anemia, unspecified - Encounter Medicine MD Kiersten type 08/11/2018 Silas Joyner III, MD 07/13/2018 Surgery Gastroenterology Malik Gonsales UPPER ENDOSCOPY MD Juan Manuel 07/13/2018 Anesthesia Event Gastroenterology Mita Banuelos MD 07/11/2018 [facility] Internal [facility], Myrna Gastrointestinal hemorrhage associated with gastrojejunal ulcer; - Encounter Medicine MD Ama Abdominal wall cellulitis; 07/15/2018 Tazn, History of CVA with residual deficit; [place] Severe protein-calorie malnutrition (HCC); MD Daniel Sacral decubitus ulcer, stage III (HCC); Donovan Ledezmaison Blood loss anemia; MD Pippa Gastrointestinal hemorrhage, unspecified gastrointestinal hemorrhage type after 12/03/2017 Social History Tobacco Use Types Packs/Day Years Used Date Unknown If Ever Smoked Sex Assigned at Date Recorded Not on file Job Start Date Occupation Industry Not on file Not on file Not on file Travel History Travel Start Travel End No recent travel history available. Last Filed Vital Signs Vital Sign Reading Time Taken Blood Pressure 144/66 08/11/2018 3:08 PM INSTRUMENT SETTER Pulse 92 08/11/2018 3:08 PM INSTRUMENT SETTER Temperature 35.6 C (96 F) 08/11/2018 3:08 PM INSTRUMENT SETTER Respiratory Rate 18 08/11/2018 3:08 PM INSTRUMENT SETTER Oxygen Saturation 95% 08/11/2018 3:08 PM INSTRUMENT SETTER Inhaled Oxygen Concentration 21% 07/14/2018 3:52 PM INSTRUMENT SETTER Weight 60.8 kg (134 lb 0.6 oz) 08/10/2018 5:00 PM INSTRUMENT SETTER Height - - Body Mass Index - - Plan of Treatment Not on file Procedures Procedure Name Priority Date/Time Associated Comments Diagnosis RHYTHM STRIP - SCAN 10/15/2018 9:20 AM CDT HEMOGLOBIN AND Routine 08/11/2018 12:31 Results for this HEMATOCRIT PM INSTRUMENT SETTER procedure are in the results section. POCT-GLUCOSE METER Routine 08/11/2018 11:51 Results for this AM INSTRUMENT SETTER procedure are in the results section. POCT-GLUCOSE METER Routine 08/11/2018 6:16 Results for this AM INSTRUMENT SETTER procedure are in the results section. CBC W/PLT COUNT & AUTO Routine 08/11/2018 1:57 Results for this DIFFERENTIAL AM INSTRUMENT SETTER procedure are in the results section. CBC W/PLT COUNT & AUTO Routine 08/11/2018 1:57 Results for this DIFFERENTIAL AM INSTRUMENT SETTER procedure are in the results section. PHOSPHORUS Routine 08/11/2018 1:57 Results for this AM INSTRUMENT SETTER procedure are in the results section. MAGNESIUM Routine 08/11/2018 1:57 Results for this AM INSTRUMENT SETTER procedure are in the results section. CALCIUM, IONIZED Routine 08/11/2018 1:57 Results for this AM INSTRUMENT SETTER procedure are in the results section. HEMOGLOBIN A1C Routine 08/11/2018 1:57 Results for this AM INSTRUMENT SETTER procedure are in the results section. BASIC METABOLIC PANEL Routine 08/11/2018 1:57 Results for this (7) AM INSTRUMENT SETTER procedure are in the results section. HEMOGLOBIN AND Routine 08/11/2018 1:57 Results for this HEMATOCRIT AM INSTRUMENT SETTER procedure are in the results section. POCT-GLUCOSE METER Routine 08/11/2018 1:35 Results for this AM INSTRUMENT SETTER procedure are in the results section. POCT-GLUCOSE METER Routine 08/10/2018 10:54 Results for this PM INSTRUMENT SETTER procedure are in the results section. CBC W/PLT COUNT & AUTO STAT 08/10/2018 6:20 Results for this DIFFERENTIAL PM INSTRUMENT SETTER procedure are in the results section. HEMOGLOBIN AND Routine 08/10/2018 6:20 Results for this HEMATOCRIT PM INSTRUMENT SETTER procedure are in the results section. HEMOGLOBIN A1C AP Routine 08/10/2018 6:20 Results for this PM INSTRUMENT SETTER procedure are in the results section. PHOSPHORUS STAT 08/10/2018 6:20 Results for this PM INSTRUMENT SETTER procedure are in the results section. MAGNESIUM STAT 08/10/2018 6:20 Results for this PM INSTRUMENT SETTER procedure are in the results section. COMPREHENSIVE STAT 08/10/2018 6:20 Results for this METABOLIC PANEL PM INSTRUMENT SETTER procedure are in the results section. CBC W/PLT COUNT & AUTO STAT 08/10/2018 6:20 Results for this DIFFERENTIAL PM INSTRUMENT SETTER procedure are in the results section. POCT-GLUCOSE METER Routine 08/10/2018 4:38 Results for this PM INSTRUMENT SETTER procedure are in the results section. RHYTHM STRIP - SCAN 08/02/2018 8:20 AM INSTRUMENT SETTER TRANSFUSION SERVICE 07/16/2018 6:01 REPORT - SCAN PM INSTRUMENT SETTER PREPARE LEUKO-REDUCED Routine 07/15/2018 11:54 Results for this RBC PM INSTRUMENT SETTER procedure are in the results section. TRANSFUSION SERVICE 07/15/2018 6:01 REPORT - SCAN PM INSTRUMENT SETTER POCT-GLUCOSE METER Routine 07/15/2018 8:18 Results for this AM INSTRUMENT SETTER procedure are in the results section. CBC W/PLT COUNT & AUTO Routine 07/15/2018 7:11 Results for this DIFFERENTIAL AM INSTRUMENT SETTER procedure are in the results section. BASIC METABOLIC PANEL Routine 07/15/2018 7:11 Results for this (7) AM INSTRUMENT SETTER procedure are in the results section. HAPTOGLOBIN Routine 07/15/2018 7:11 Results for this AM INSTRUMENT SETTER procedure are in the results section. CBC W/PLT COUNT & AUTO Routine 07/15/2018 7:11 Results for this DIFFERENTIAL AM INSTRUMENT SETTER procedure are in the results section. POCT-GLUCOSE METER Routine 07/15/2018 6:37 Results for this AM INSTRUMENT SETTER procedure are in the results section. POCT-GLUCOSE METER Routine 07/14/2018 11:36 Results for this PM INSTRUMENT SETTER procedure are in the results section. POCT-GLUCOSE METER Routine 07/14/2018 5:23 Results for this PM INSTRUMENT SETTER procedure are in the results section. BASIC METABOLIC PANEL Routine 07/14/2018 3:47 Results for this (7) PM INSTRUMENT SETTER procedure are in the results section. PERIPHERAL BLOOD SMEAR AP Routine 07/14/2018 3:47 Results for this - PATHOLOGIST REVIEW PM INSTRUMENT SETTER procedure are in the results section. RETICULOCYTE COUNT Routine 07/14/2018 3:47 Results for this PM INSTRUMENT SETTER procedure are in the results section. CBC W/PLT COUNT & AUTO Routine 07/14/2018 1:03 Results for this DIFFERENTIAL PM INSTRUMENT SETTER procedure are in the results section. HEPATIC FUNCTION PANEL Routine 07/14/2018 1:03 Results for this PM INSTRUMENT SETTER procedure are in the results section. CBC W/PLT COUNT & AUTO Routine 07/14/2018 1:03 Results for this DIFFERENTIAL PM INSTRUMENT SETTER procedure are in the results section. LACTATE DEHYDROGENASE Routine 07/14/2018 1:03 Results for this (LDH) PM INSTRUMENT SETTER procedure are in the results section. TRANSFUSE Routine 07/14/2018 12:32 LEUKO-REDUCED RED PM INSTRUMENT SETTER BLOOD CELLS POCT-GLUCOSE METER Routine 07/14/2018 12:01 Results for this PM INSTRUMENT SETTER procedure are in the results section. VANCOMYCIN LEVEL, Routine 07/14/2018 8:37 Results for this RANDOM AM INSTRUMENT SETTER procedure are in the results section. POCT-GLUCOSE METER Routine 07/14/2018 6:45 Results for this AM INSTRUMENT SETTER procedure are in the results section. CBC W/PLT COUNT & AUTO Routine 07/14/2018 6:10 Results for this DIFFERENTIAL AM INSTRUMENT SETTER procedure are in the results section. MAGNESIUM Routine 07/14/2018 6:10 Results for this AM INSTRUMENT SETTER procedure are in the results section. BASIC METABOLIC PANEL Routine 07/14/2018 6:10 Results for this (7) AM INSTRUMENT SETTER procedure are in the results section. CBC W/PLT COUNT & AUTO Routine 07/14/2018 6:10 Results for this DIFFERENTIAL AM INSTRUMENT SETTER procedure are in the results section. POCT-GLUCOSE METER Routine 07/14/2018 1:16 Results for this AM INSTRUMENT SETTER procedure are in the results section. VANCOMYCIN LEVEL, Timed 07/13/2018 9:11 Results for this TROUGH PM INSTRUMENT SETTER procedure are in the results section. TRANSFUSION SERVICE 07/13/2018 6:03 REPORT - SCAN PM INSTRUMENT SETTER POCT-GLUCOSE METER Routine 07/13/2018 5:42 Results for this PM INSTRUMENT SETTER procedure are in the results section. POCT-GLUCOSE METER Routine 07/13/2018 3:39 Results for this PM INSTRUMENT SETTER procedure are in the results section. REPORT OF PROCEDURE - 07/13/2018 3:20 ENDOSCOPY URL PM INSTRUMENT SETTER UPPER ENDOSCOPY 07/13/2018 3:00 Melena PM INSTRUMENT SETTER POCT-GLUCOSE METER Routine 07/13/2018 11:58 Results for this AM INSTRUMENT SETTER procedure are in the results section. (CELLAVISION MANUAL Routine 07/13/2018 5:54 Results for this DIFF) AM INSTRUMENT SETTER procedure are in the results section. CBC W/PLT COUNT & AUTO Routine 07/13/2018 5:54 Results for this DIFFERENTIAL AM INSTRUMENT SETTER procedure are in the results section. MAGNESIUM Routine 07/13/2018 5:54 Results for this AM INSTRUMENT SETTER procedure are in the results section. BASIC METABOLIC PANEL Routine 07/13/2018 5:54 Results for this (7) AM INSTRUMENT SETTER procedure are in the results section. CBC W/PLT COUNT & AUTO Routine 07/13/2018 5:54 Results for this DIFFERENTIAL AM INSTRUMENT SETTER procedure are in the results section. POCT-GLUCOSE METER Routine 07/13/2018 5:49 Results for this AM INSTRUMENT SETTER procedure are in the results section. POCT-GLUCOSE METER Routine 07/13/2018 12:11 Results for this AM INSTRUMENT SETTER procedure are in the results section. POCT-GLUCOSE METER Routine 07/12/2018 6:40 Results for this PM INSTRUMENT SETTER procedure are in the results section. POCT-GLUCOSE METER Routine 07/12/2018 12:43 Results for this PM INSTRUMENT SETTER procedure are in the results section. ECG 12-LEAD Routine 07/12/2018 9:22 Results for this AM INSTRUMENT SETTER procedure are in the results section. POCT-GLUCOSE METER Routine 07/12/2018 7:37 Results for this AM INSTRUMENT SETTER procedure are in the results section. (CELLAVISION MANUAL Routine 07/12/2018 6:21 Results for this DIFF) AM INSTRUMENT SETTER procedure are in the results section. CBC W/PLT COUNT & AUTO Routine 07/12/2018 6:21 Results for this DIFFERENTIAL AM INSTRUMENT SETTER procedure are in the results section. TYPE AND SCREEN, Routine 07/12/2018 6:21 Results for this AUTOMATED AM INSTRUMENT SETTER procedure are in the results section. MAGNESIUM Routine 07/12/2018 6:21 Results for this AM INSTRUMENT SETTER procedure are in the results section. BASIC METABOLIC PANEL Routine 07/12/2018 6:21 Results for this (7) AM INSTRUMENT SETTER procedure are in the results section. CBC W/PLT COUNT & AUTO Routine 07/12/2018 6:21 Results for this DIFFERENTIAL AM INSTRUMENT SETTER procedure are in the results section. after 12/03/2017 Results RHYTHM STRIP - SCAN (10/15/2018 9:20 AM CDT)Only the most recent of2 resultswithin the time period is included. Narrative Performed At Hemoglobin and hematocrit (08/11/2018 12:31 PM INSTRUMENT SETTER)Only the most recent of3 resultswithin the time period is included. Hemoglobin 9.2 (L) 13.7 - 17.5 GM/DL [facility] Hematocrit 30.1 (L) 40.1 - 51.0 % [facility] Specimen Blood Performing Organization Address City/[facility] Phone Number [address] [address] [place] POC-Glucose meter (08/11/2018 11:51 AM INSTRUMENT SETTER)Only the most recent of20 resultswithin the time period is included. POC-Glucose Meter 98Comment: TESTED AT 70 - 110 mg/dL [address] [address] Specimen Blood Performing Organization Address City/[facility] Cent[facility]ode Phone Number [address] [address] [place] Calcium, Ionized (08/11/2018 1:57 AM INSTRUMENT SETTER) Calcium, Ion 1.09 (L) 1.12 - 1.27 mmol/L [facility] pH, Blood 7.44 [facility] Specimen Blood Performing Organization Address City/[facility] Cent[facility]oco Phone Number [address] [address] [place] CBC with platelet count + automated diff (08/11/2018 1:57 AM INSTRUMENT SETTER)Only the most recent of7 resultswithin the time period is included. WBC 10.1 3.5 - 10.5 K/L [facility] RBC 3.54 (L) 4.63 - 6.08 M/L [facility] Hemoglobin 9.8 (L) 13.7 - 17.5 GM/DL [facility] Hematocrit 31.9 (L) 40.1 - 51.0 % [facility] MCV 90.1 79.0 - 92.2 fL [facility] MCH 27.7 25.7 - 32.2 pg [facility] MCHC 30.7 (L) 32.3 - 36.5 GM/DL [facility] RDW 17.7 (H) 11.6 - 14.4 % [facility] Platelets 209 150 - 450 K/CU MM [facility] MPV 9.9 9.4 - 12.4 fL [facility] nRBC 0 0 - 0 /100 WBC [facility] % Neutros 77 % [facility] % Lymphs 11 % [facility] % Monos 10 % [facility] % Eos 2 % [facility] % Baso 0 % [facility] # Neutros 7.78 (H) 1.78 - 5.38 K/L [facility] # Lymphs 1.07 (L) 1.32 - 3.57 K/L [facility] # Monos 1.04 (H) 0.30 - 0.82 K/L [facility] # Eos 0.17 0.04 - 0.54 K/L [facility] # Baso 0.02 0.01 - 0.08 K/L [facility] Immature Granulocytes-Relative 0 0 - 1 % [facility] Specimen Blood Performing Organization Address City/[facility]/Zipcode Phone Number [address] [address] [phone] CENTER Phosphorus (08/11/2018 1:57 AM INSTRUMENT SETTER)Only the most recent of2 resultswithin the time period is included. Phosphorus 3.2 2.3 - 4.7 mg/dL [facility] Specimen Blood Performing Organization Address City/[facility]/Zipcode Phone Number [address] [address] [phone] CENTER Magnesium (08/11/2018 1:57 AM INSTRUMENT SETTER)Only the most recent of5 resultswithin the time period is included. Magnesium 1.8 1.6 - 2.6 mg/dL [facility] Specimen Blood Performing Organization Address City/State/Zipcode Phone Number [address] [address] C[place] Hemoglobin A1c (08/11/2018 1:57 AM INSTRUMENT SETTER)Only the most recent of2 resultswithin the time period is included. Hemoglobin A1C 6.4 (H) 4.3 - 6.1 % [facility] Specimen Blood Performing Organization Address [facility] Centercode Phone Number [address] [address] [phone] [place] Basic metabolic panel (08/11/2018 1:57 AM INSTRUMENT SETTER)Only the most recent of6 resultswithin the time period is included. Sodium 134 (L) 136 - 145 meq/L [facility] Potassium 4.2 3.5 - 5.1 meq/L [facility] Chloride 102 98 - 107 meq/L [facility] CO2 27 22 - 29 meq/L [facility] BUN 24 (H) 7 - 21 mg/dL [facility] Creatinine 1.31 (H) 0.57 - 1.25 mg/dL [facility] Glucose 77 70 - 105 mg/dL [facility] Calcium 8.6 8.4 - 10.2 mg/dL [facility] EGFR 64Comment: ESTIMATED GFR IS mL/min/1.73 sq m [facility] NOT ACCURATE CREATININE [facility] CLEARANCE IN PREDICTING GLOMERULAR FILTRATION RATE. ESTIMATED GFR IS NOT APPLICABLE FOR DIALYSIS PATIENTS. Specimen Blood Performing Organization Address City/[facility]/Zipcode Phone Number [address] [address] [phone] [place] Comprehensive metabolic panel (08/10/2018 6:20 PM INSTRUMENT SETTER) Protein, Total 7.4 6.0 - 8.3 gm/dL [facility] Albumin 2.1 (L) 3.5 - 5.0 g/dL [facility] Alkaline Phosphatase 142 40 - 150 U/L [facility] Total Bilirubin 0.2 0.2 - 1.2 mg/dL [facility] Sodium 136 136 - 145 meq/L [facility] Potassium 4.0 3.5 - 5.1 meq/L [facility] Chloride 102 98 - 107 meq/L [facility] CO2 29 22 - 29 meq/L [facility] BUN 27 (H) 7 - 21 mg/dL [facility] Creatinine 1.33 (H) 0.57 - 1.25 mg/dL [facility] Glucose 51 (L) 70 - 105 mg/dL [facility] Calcium 8.6 8.4 - 10.2 mg/dL [facility] AST 37 (H) 5 - 34 U/L [facility] ALT 27 6 - 55 U/L [facility] EGFR 63Comment: ESTIMATED GFR mL/min/1.73 sq m [facility] IS NOT ACCURATE [facility] CREATININE CLEARANCE IN PREDICTING GLOMERULAR FILTRATION RATE. ESTIMATED GFR IS NOT APPLICABLE FOR DIALYSIS PATIENTS. Specimen Blood Performing Organization Address City/State/Zipcode Phone Number [facility] [address] [place] [address] [place] TRANSFUSION SERVICE REPORT - SCAN (07/16/2018 6:01 PM INSTRUMENT SETTER)Only the most recent of3 resultswithin the time period is included. Narrative Performed At Prepare Leuko-Red RBC (07/15/2018 11:54 PM INSTRUMENT SETTER) CROSSMATCH COMPATIBLE [employer]AF[employer] TX Unit ABO O Pos SAFETRACE TX UNIT NUMBER [id number] [place] TX Status TRANSFUSED [facility] TX Blood Bank Product RED BLOOD CELLS [employer] TX PRODUCT CODE [id number] [place] Specimen Other Performing Organization Address [facility] Phone Number [employer] [place] Haptoglobin (07/15/2018 7:11 AM INSTRUMENT SETTER) Haptoglobin 185 14 - 258 mg/dL [facility] Specimen Blood Performing Organization Address [facility] Phone Number [address] [address] [place] Peripheral Blood Smear - Path Review (07/14/2018 3:47 PM INSTRUMENT SETTER) RBC Morphology Polychromasia [facility] Anisocytosis [facility] Poikilocytosis WBC Morphology Toxic Granulation [facility] Pathologist Review Cell counts confirmed. [facility] Pathologist: Rafaela Dowell M.D. [facility] (electronic signature) [facility] Specimen Blood Performing Organization Address [facility] Phone Number [address] [address] [place] Reticulocyte count (07/14/2018 3:47 PM INSTRUMENT SETTER) % Retic 2.3 (H) 0.5 - 1.8 % [facility] Specimen Blood Performing Organization Address [facility] Phone Number [address] [address] [phone] CENTER Lactate dehydrogenase (LDH) (07/14/2018 1:03 PM INSTRUMENT SETTER) LDH 338 (H)Comment: Specimen 125 - 220 U/L [facility] slightly hemolyzed [facility] Specimen Blood Performing Organization Address [facility] Phone Number [address] [address] [place] Hepatic function panel (07/14/2018 1:03 PM INSTRUMENT SETTER) Protein, Total 4.8 (L)Comment: Specimen 6.0 - 8.3 gm/dL [facility] hemolyzed [facility] Albumin 1.2 (L)Comment: Specimen 3.5 - 5.0 g/dL [facility] hemolyzed [facility] Total Bilirubin 0.2Comment: Specimen 0.2 - 1.2 mg/dL [facility] Bilirubin, Direct 0.1Comment: Specimen 0.1 - 0.5 mg/dL [facility] hemolyzed [facility] Alkaline Phosphatase 74 40 - 150 U/L [facility] AST 38 (H)Comment: Specimen 5 - 34 U/L [facility] hemolyzed [facility] ALT 19Comment: Specimen 6 - 55 U/L [facility] Specimen Blood Performing Organization Address City/[facility] Centercode Phone Number [address] [address] C[place] Transfuse Leuko-Red RBC (07/14/2018 12:32 PM INSTRUMENT SETTER)Only the most recent of2 resultswithin the time period is included.Vancomycin level, random (07/14/2018 8:37 AM INSTRUMENT SETTER) Vancomycin Rm 22.6 ug/mL [facility] Specimen Blood Narrative Performed At Reference Range: No Normals [facility] Performing Organization Address [facility] Centercode Phone Number [address] [address] C[place] Vancomycin level, trough (07/13/2018 9:11 PM INSTRUMENT SETTER) Vancomycin Tr 26.3 (H) 10.0 - 20.0 ug/mL [facility] Specimen Blood Narrative Performed At WAIT FOR LEVEL TO RETURN BEFORE GIVING DOSE. [facility] If vancomycin trough level > 20, HOLD dose and contact MD and pharmacist. Performing Organization Address City/[facility]/Zipcode Phone Number [facility] [address] [place] [address] CENTER REPORT OF PROCEDURE - ENDOSCOPY URL (07/13/2018 3:20 PM INSTRUMENT SETTER) Narrative Performed At Manual Differential (07/13/2018 5:54 AM INSTRUMENT SETTER)Only the most recent of2 resultswithin the time period is included. % Neutros 89 % [facility] % Lymphs 5 % [facility] % Monos 5 % [facility] % Atypical Lymphs 1 (H) 0 - 0 % [facility] # Neutros 11.21 (H) 1.78 - 5.38 K/ul [facility] # Lymphs 0.63 (L) 1.32 - 3.57 K/ul [facility] # Monos 0.63 0.30 - 0.82 K/uL [facility] # Atypical Lymphs 0.13 (H) 0.00 - 0.00 K/uL [facility] Total Counted 100 [facility] Platelet Morphology Normal [facility] Smudge Cells Present [facility] Anisocytosis 1+ few [facility] Poikilocytes 2+ moderate [facility] [place] Cells 1+ few [facility] Platelet Conc Adequate [facility] Specimen Blood Narrative Performed At Received comment: [facility] User comments: Slide comments: Performing Organization Address City/State/Zipcode Phone Number [facility] [address] [place] [address] [place] ECG 12 lead (07/12/2018 9:22 AM INSTRUMENT SETTER) Specimen Narrative Performed At Ventricular Rate 100 BPM GE MUSE Atrial Rate 100 BPM P-R Interval 148 ms QRS Duration 90 ms Q-T Interval 344 ms QTC Calculation(Bazett) 443 ms P Edon 59 degrees R Edon -12 degrees T Edon 9 degrees Sinus rhythm with premature artial complexes Inferior infarct , age undetermined Abnormal ECG No previous ECGs available Confirmed by MD MARYJANE, IHAB ([id number]) on 07/13/2018 7:29:33 AM Procedure Note Interface, External Ris In - 07/13/2018 7:29 AM INSTRUMENT SETTER Ventricular Rate 100 BPM Atrial Rate 100 BPM P-R Interval 148 ms QRS Duration 90 ms Q-T Interval 344 ms QTC Calculation(Bazett) 443 ms P [place] 59 degrees R Edon -12 degrees T [place] 9 degrees Sinus rhythm with premature artial complexes Inferior infarct , age undetermined Abnormal ECG No previous ECGs available Confirmed by MD MARYJANE, IHAB ([id number]) on 07/13/2018 7:29:33 AM Performing Organization Address City/State/Zipcode Phone Number GE MUSE Type and screen, automated (07/12/2018 6:21 AM INSTRUMENT SETTER) ABO/RH AUTOMATED (BEAKER) O POSITIVE [facility] Ab Scrn NEGATIVE [facility] Specimen Blood Performing Organization Address City/State/Zipcode Phone Number [facility] [address] [place] [address] after 12/03/2017 Insurance Payer Benefit Plan / Group Subscriber ID Type Phone Address MEDICARE MEDICARE A B xxxxxxxxxxx Medicare MEDICAID MEDICAID [facility] xxxxxxxxx Medicaid Advance Directives For more information, please contact:[facility] [place], [place] [phone] Code Status Date Activated Date Inactivated Comments Full Code 08/10/2018 8:12 PM This code status was determined by: Patient Full Code 07/11/2018 10:34 PM 08/10/2018 4:09 PM This code status was determined by: Patient
--- OUTSIDE RECORDS SUMMARY | 2018-12-04 17:39 | XMS REPORT ---
:1940 Author Organization [facility] Address [address] [place] [id number] Care Team Providers Name Role Phone RODNEY [...] Reference Range Comments HEMOGLOBIN A1C (BEAKER) (test cbpy=095) 6.4 % 4.3-6.1 HEMOGLOBIN [id number] 13:06:00 Test Item Value Reference Range Comments HEMOGLOBIN A1C (BEAKER) (test qkxf=764) 6.3 % 4.3-6.1 HEMOGLOBIN AND [id number] 12:45:00 Test Item Value Reference Range Comments HEMOGLOBIN (BEAKER) (test zowq=573) 9.2 GM/DL 13.7-17.5 HEMATOCRIT (BEAKER) (test cxxx=394) 30.1 % 40.1-51.0 POCT-GLUCOSE [id number] 12:00:00 Test Item Value Reference Range Comments POC-GLUCOSE METER (BEAKER) 98 mg/dL 70-110 TESTED AT [place] [id number] [facility] (test chpx=2403) [facility] [address] POCT-GLUCOSE [id number] 06:19:00 Test Item Value Reference Range Comments POC-GLUCOSE METER (BEAKER) 120 mg/dL 70-110 TESTED AT [place] [id number] [facility] (test ebrn=0477) [facility] [address] [id number] 02:40:00 Test Item Value Reference Range Comments PHOSPHORUS (BEAKER) (test dfpf=163) 3.2 mg/dL 2.3-4.7 [id number] 02:40:00 Test Item Value Reference Range Comments MAGNESIUM (BEAKER) (test docz=447) 1.8 mg/dL 1.6-2.6 BASIC METABOLIC [id number] 02:40:00 Test Item Value Reference Range Comments SODIUM (BEAKER) (test 134 meq/L 136-145 yysi=698) POTASSIUM (BEAKER) (test 4.2 meq/L 3.5-5.1 dltv=829) CHLORIDE (BEAKER) (test 102 meq/L 98-107 pfkr=560) CO2 (BEAKER) (test 27 meq/L 22-29 trqs=887) BLOOD UREA NITROGEN 24 mg/dL 7-21 (BEAKER) (test fwmm=650) CREATININE (BEAKER) (test 1.31 mg/dL 0.57-1.25 hqev=245) GLUCOSE RANDOM (BEAKER) 77 mg/dL 70-105 (test kldh=191) CALCIUM (BEAKER) (test 8.6 mg/dL 8.4-10.2 hzax=400) EGFR (BEAKER) (test 64 mL/min/1.73 sq m ESTIMATED GFR IS NOT odtz=6735) ACCURATE CREATININE CLEARANCE IN PREDICTING GLOMERULAR FILTRATION RATE. ESTIMATED GFR IS NOT APPLICABLE FOR DIALYSIS PATIENTS. CALCIUM, [id number] 02:18:00 Test Item Value Reference Range Comments CALCIUM IONIZED (BEAKER) (test triy=716) 1.09 mmol/L 1.12-1.27 PH, BLOOD (BEAKER) (test yvkh=9391) 7.44 HEMOGLOBIN AND [id number] 02:10:00 Test Item Value Reference Range Comments HEMOGLOBIN (BEAKER) (test zcur=367) 9.8 GM/DL 13.7-17.5 HEMATOCRIT (BEAKER) (test jhrc=023) 31.9 % 40.1-51.0 CBC W/PLT COUNT & AUTO [id number] 02:10:00 Test Item Value Reference Range Comments WHITE BLOOD CELL COUNT (BEAKER) (test gwvp=313) 10.1 K/ L 3.5-10.5 RED BLOOD CELL COUNT (BEAKER) (test fgqb=986) 3.54 M/ L 4.63-6.08 HEMOGLOBIN (BEAKER) (test hsqd=422) 9.8 GM/DL 13.7-17.5 HEMATOCRIT (BEAKER) (test anyr=153) 31.9 % 40.1-51.0 MEAN CORPUSCULAR VOLUME (BEAKER) (test kwnj=977) 90.1 fL 79.0-92.2 MEAN CORPUSCULAR HEMOGLOBIN (BEAKER) (test 27.7 pg 25.7-32.2 owje=104) MEAN CORPUSCULAR HEMOGLOBIN CONC (BEAKER) (test 30.7 GM/DL 32.3-36.5 miln=530) RED CELL DISTRIBUTION WIDTH (BEAKER) (test 17.7 % 11.6-14.4 krcc=607) PLATELET COUNT (BEAKER) (test uqxb=593) 209 K/CU MM 150-450 MEAN PLATELET VOLUME (BEAKER) (test ntxz=018) 9.9 fL 9.4-12.4 NUCLEATED RED BLOOD CELLS (BEAKER) (test 0 /100 WBC 0-0 tzkx=910) NEUTROPHILS RELATIVE PERCENT (BEAKER) (test 77 % vzgq=268) LYMPHOCYTES RELATIVE PERCENT (BEAKER) (test 11 % siuk=641) MONOCYTES RELATIVE PERCENT (BEAKER) (test 10 % czqg=334) EOSINOPHILS RELATIVE PERCENT (BEAKER) (test 2 % ywfs=331) BASOPHILS RELATIVE PERCENT (BEAKER) (test 0 % hhji=627) NEUTROPHILS ABSOLUTE COUNT (BEAKER) (test 7.78 K/ L 1.78-5.38 wvbz=921) LYMPHOCYTES ABSOLUTE COUNT (BEAKER) (test 1.07 K/ L 1.32-3.57 zxur=256) MONOCYTES ABSOLUTE COUNT (BEAKER) (test 1.04 K/ L 0.30-0.82 aztn=336) EOSINOPHILS ABSOLUTE COUNT (BEAKER) (test 0.17 K/ L 0.04-0.54 izvn=620) BASOPHILS ABSOLUTE COUNT (BEAKER) (test 0.02 K/ L 0.01-0.08 jwla=190) IMMATURE GRANULOCYTES-RELATIVE PERCENT (BEAKER) 0 % 0-1 (test kcur=5430) POCT-GLUCOSE [id number] 01:36:00 Test Item Value Reference Range Comments POC-GLUCOSE METER (BEAKER) 97 mg/dL 70-110 TESTED AT [facility] [address] [facility] (test vohc=1674) [facility] [address] POCT-GLUCOSE [id number] 22:56:00 Test Item Value Reference Range Comments POC-GLUCOSE METER (BEAKER) 70 mg/dL 70-110 TESTED AT [facility] [address] (test asbi=4734) [facility] [address] [id number] 19:59:00 Test Item Value Reference Range Comments PHOSPHORUS (BEAKER) (test flbq=933) 3.2 mg/dL 2.3-4.7 [id number] 19:59:00 Test Item Value Reference Range Comments MAGNESIUM (BEAKER) (test yczq=671) 1.9 mg/dL 1.6-2.6 COMPREHENSIVE METABOLIC [id number] 19:59:00 Test Item Value Reference Range Comments TOTAL PROTEIN (BEAKER) 7.4 gm/dL 6.0-8.3 (test gjnp=860) ALBUMIN (BEAKER) (test 2.1 g/dL 3.5-5.0 ybjp=9679) ALKALINE PHOSPHATASE 142 U/L 40-150 (BEAKER) (test ugxb=131) BILIRUBIN TOTAL (BEAKER) 0.2 mg/dL 0.2-1.2 (test azel=490) SODIUM (BEAKER) (test 136 meq/L 136-145 mcwa=288) POTASSIUM (BEAKER) (test 4.0 meq/L 3.5-5.1 spsb=372) CHLORIDE (BEAKER) (test 102 meq/L 98-107 born=231) CO2 (BEAKER) (test 29 meq/L 22-29 juba=683) BLOOD UREA NITROGEN 27 mg/dL 7-21 (BEAKER) (test cizf=859) CREATININE (BEAKER) (test 1.33 mg/dL 0.57-1.25 shmr=895) GLUCOSE RANDOM (BEAKER) 51 mg/dL 70-105 (test coid=385) CALCIUM (BEAKER) (test 8.6 mg/dL 8.4-10.2 onbz=077) AST (SGOT) (BEAKER) (test 37 U/L 5-34 jybm=070) ALT (SGPT) (BEAKER) (test 27 U/L 6-55 smhj=015) EGFR (BEAKER) (test 63 mL/min/1.73 sq m ESTIMATED GFR IS NOT afsg=0239) ACCURATE CREATININE CLEARANCE IN PREDICTING GLOMERULAR FILTRATION RATE. ESTIMATED GFR IS NOT APPLICABLE FOR DIALYSIS PATIENTS. CBC W/PLT COUNT & AUTO [id number] 19:45:00 Test Item Value Reference Range Comments WHITE BLOOD CELL COUNT (BEAKER) (test ghwf=911) 10.5 K/ L 3.5-10.5 RED BLOOD CELL COUNT (BEAKER) (test zyib=891) 3.65 M/ L 4.63-6.08 HEMOGLOBIN (BEAKER) (test xuei=479) 10.2 GM/DL 13.7-17.5 HEMATOCRIT (BEAKER) (test onyg=938) 33.6 % 40.1-51.0 MEAN CORPUSCULAR VOLUME (BEAKER) (test exze=076) 92.1 fL 79.0-92.2 MEAN CORPUSCULAR HEMOGLOBIN (BEAKER) (test 27.9 pg 25.7-32.2 qcyd=693) MEAN CORPUSCULAR HEMOGLOBIN CONC (BEAKER) (test 30.4 GM/DL 32.3-36.5 rjxe=673) RED CELL DISTRIBUTION WIDTH (BEAKER) (test 17.6 % 11.6-14.4 ymrv=841) PLATELET COUNT (BEAKER) (test kgcw=802) 213 K/CU MM 150-450 MEAN PLATELET VOLUME (BEAKER) (test usxi=108) 10.7 fL 9.4-12.4 NUCLEATED RED BLOOD CELLS (BEAKER) (test 0 /100 WBC 0-0 adjz=903) NEUTROPHILS RELATIVE PERCENT (BEAKER) (test 81 % mczn=220) LYMPHOCYTES RELATIVE PERCENT (BEAKER) (test 8 % wefr=245) MONOCYTES RELATIVE PERCENT (BEAKER) (test 9 % elri=416) EOSINOPHILS RELATIVE PERCENT (BEAKER) (test 2 % pxnp=290) BASOPHILS RELATIVE PERCENT (BEAKER) (test 0 % pcgb=918) NEUTROPHILS ABSOLUTE COUNT (BEAKER) (test 8.47 K/ L 1.78-5.38 uraf=167) LYMPHOCYTES ABSOLUTE COUNT (BEAKER) (test 0.79 K/ L 1.32-3.57 qyxy=715) MONOCYTES ABSOLUTE COUNT (BEAKER) (test 0.96 K/ L 0.30-0.82 dkbb=789) EOSINOPHILS ABSOLUTE COUNT (BEAKER) (test 0.22 K/ L 0.04-0.54 wmay=630) BASOPHILS ABSOLUTE COUNT (BEAKER) (test 0.03 K/ L 0.01-0.08 yiom=779) IMMATURE GRANULOCYTES-RELATIVE PERCENT (BEAKER) 0 % 0-1 (test dqrv=0983) HEMOGLOBIN AND [id number] 19:43:00 Test Item Value Reference Range Comments HEMOGLOBIN (BEAKER) (test epip=338) 10.2 GM/DL 13.7-17.5 HEMATOCRIT (BEAKER) (test gftc=593) 33.6 % 40.1-51.0 POCT-GLUCOSE [id number] 16:53:00 Test Item Value Reference Range Comments POC-GLUCOSE METER (BEAKER) 83 mg/dL 70-110 TESTED AT [address] (test xgqe=3888) [place] [id number] PERIPHERAL BLOOD SMEAR - PATHOLOGIST [id number] 11:31:00 Test Item Value Reference Range Comments RBC MORPHOLOGY (BEAKER) Polychromasia (test vpva=5424) RBC MORPHOLOGY (BEAKER) Anisocytosis (test nsop=80867) RBC MORPHOLOGY (BEAKER) Poikilocytosis (test xncd=11945) WBC MORPHOLOGY (BEAKER) Toxic Granulation (test tzah=6251) PERIPHERAL SMR REVIEW Cell counts confirmed. (BEAKER) (test dngk=5889) [id number] Rafaela Dowell M.D. (electronic (BEAKER) (test ytus=0623) signature) POCT-GLUCOSE [id number] 08:24:00 Test Item Value Reference Range Comments POC-GLUCOSE METER (BEAKER) 236 mg/dL 70-110 TESTED AT [address] (test mifm=0909) [place] [id number] 07:35:00 Test Item Value Reference Range Comments HAPTOGLOBIN (BEAKER) (test uvua=638) 185 mg/dL 14-258 BASIC METABOLIC [id number] 07:34:00 Test Item Value Reference Range Comments SODIUM (BEAKER) (test 141 meq/L 136-145 ptxk=430) POTASSIUM (BEAKER) (test 4.2 meq/L 3.5-5.1 mfcj=764) CHLORIDE (BEAKER) (test 112 meq/L 98-107 uwmi=458) CO2 (BEAKER) (test 26 meq/L 22-29 acek=358) BLOOD UREA NITROGEN 23 mg/dL 7-21 (BEAKER) (test jiru=362) CREATININE (BEAKER) (test 1.23 mg/dL 0.57-1.25 edwz=499) GLUCOSE RANDOM (BEAKER) 186 mg/dL 70-105 (test qzns=587) CALCIUM (BEAKER) (test 8.0 mg/dL 8.4-10.2 tmnb=496) EGFR (BEAKER) (test 69 mL/min/1.73 sq m ESTIMATED GFR IS NOT jbvg=8995) ACCURATE CREATININE CLEARANCE IN PREDICTING GLOMERULAR FILTRATION RATE. ESTIMATED GFR IS NOT APPLICABLE FOR DIALYSIS PATIENTS. CBC W/PLT COUNT & AUTO [id number] 07:21:00 Test Item Value Reference Range Comments WHITE BLOOD CELL COUNT (BEAKER) (test qtyc=460) 8.9 K/ L 3.5-10.5 RED BLOOD CELL COUNT (BEAKER) (test tpug=781) 3.26 M/ L 4.63-6.08 HEMOGLOBIN (BEAKER) (test uefh=721) 9.1 GM/DL 13.7-17.5 HEMATOCRIT (BEAKER) (test ysgi=858) 29.6 % 40.1-51.0 MEAN CORPUSCULAR VOLUME (BEAKER) (test omsn=484) 90.8 fL 79.0-92.2 MEAN CORPUSCULAR HEMOGLOBIN (BEAKER) (test 27.9 pg 25.7-32.2 blvq=586) MEAN CORPUSCULAR HEMOGLOBIN CONC (BEAKER) (test 30.7 GM/DL 32.3-36.5 tpft=589) RED CELL DISTRIBUTION WIDTH (BEAKER) (test 17.9 % 11.6-14.4 zraa=907) PLATELET COUNT (BEAKER) (test cvdt=031) 211 K/CU MM 150-450 MEAN PLATELET VOLUME (BEAKER) (test jqtg=534) 10.3 fL 9.4-12.4 NUCLEATED RED BLOOD CELLS (BEAKER) (test 0 /100 WBC 0-0 qgcg=032) NEUTROPHILS RELATIVE PERCENT (BEAKER) (test 73 % eqpm=557) LYMPHOCYTES RELATIVE PERCENT (BEAKER) (test 12 % wxkg=213) MONOCYTES RELATIVE PERCENT (BEAKER) (test 12 % szug=724) EOSINOPHILS RELATIVE PERCENT (BEAKER) (test 2 % xoki=050) BASOPHILS RELATIVE PERCENT (BEAKER) (test 0 % bved=378) NEUTROPHILS ABSOLUTE COUNT (BEAKER) (test 6.49 K/ L 1.78-5.38 hhrh=912) LYMPHOCYTES ABSOLUTE COUNT (BEAKER) (test 1.11 K/ L 1.32-3.57 qlts=860) MONOCYTES ABSOLUTE COUNT (BEAKER) (test 1.08 K/ L 0.30-0.82 pfcp=270) EOSINOPHILS ABSOLUTE COUNT (BEAKER) (test 0.19 K/ L 0.04-0.54 djiz=762) BASOPHILS ABSOLUTE COUNT (BEAKER) (test 0.02 K/ L 0.01-0.08 vfod=646) IMMATURE GRANULOCYTES-RELATIVE PERCENT (BEAKER) 0 % 0-1 (test bkqi=6901) POCT-GLUCOSE [id number] 06:39:00 Test Item Value Reference Range Comments POC-GLUCOSE METER (BEAKER) 239 mg/dL 70-110 TESTED AT [address] (test hylh=3635) [place] [address] POCT-GLUCOSE [id number] 23:40:00 Test Item Value Reference Range Comments POC-GLUCOSE METER (BEAKER) 234 mg/dL 70-110 TESTED AT [address] (test rkcf=9453) [place] [id number] POCT-GLUCOSE [id number] 17:26:00 Test Item Value Reference Range Comments POC-GLUCOSE METER (BEAKER) 257 mg/dL 70-110 TESTED AT [address] (test hmxw=7933) [facility] [address] BASIC METABOLIC [id number] 16:15:00 Test Item Value Reference Range Comments SODIUM (BEAKER) (test 140 meq/L 136-145 tuxw=902) POTASSIUM (BEAKER) (test 4.6 meq/L 3.5-5.1 bvjh=437) CHLORIDE (BEAKER) (test 111 meq/L 98-107 gmwy=904) CO2 (BEAKER) (test 25 meq/L 22-29 mbcx=453) BLOOD UREA NITROGEN 24 mg/dL 7-21 (BEAKER) (test hcix=777) CREATININE (BEAKER) (test 1.21 mg/dL 0.57-1.25 fgqq=947) GLUCOSE RANDOM (BEAKER) 195 mg/dL 70-105 (test ppym=782) CALCIUM (BEAKER) (test 8.2 mg/dL 8.4-10.2 tseq=443) EGFR (BEAKER) (test 71 mL/min/1.73 sq m ESTIMATED GFR IS NOT xkjl=5338) ACCURATE CREATININE CLEARANCE IN PREDICTING GLOMERULAR FILTRATION RATE. ESTIMATED GFR IS NOT APPLICABLE FOR DIALYSIS PATIENTS. RETICULOCYTE [id number] 15:59:00 Test Item Value Reference Range Comments RETICULOCYTE COUNT PCT (BEAKER) (test vfde=385) 2.3 % 0.5-1.8 HEPATIC FUNCTION [id number] 13:31:00 Test Item Value Reference Range Comments TOTAL PROTEIN (BEAKER) (test 4.8 gm/dL 6.0-8.3 Specimen slightly hemolyzed gtwo=807) ALBUMIN (BEAKER) (test 1.2 g/dL 3.5-5.0 Specimen slightly hemolyzed tuvw=9598) BILIRUBIN TOTAL (BEAKER) (test 0.2 mg/dL 0.2-1.2 Specimen slightly hemolyzed avhw=640) BILIRUBIN DIRECT (BEAKER) (test 0.1 mg/dL 0.1-0.5 Specimen slightly hemolyzed kdyi=205) ALKALINE PHOSPHATASE (BEAKER) 74 U/L 40-150 (test rhhk=267) AST (SGOT) (BEAKER) (test 38 U/L 5-34 Specimen slightly hemolyzed ldta=502) ALT (SGPT) (BEAKER) (test 19 U/L 6-55 Specimen slightly hemolyzed ruzz=286) LACTATE DEHYDROGENASE (LDH)[id number] 13:30:00 Test Item Value Reference Range Comments LACTATE DEHYDROGENASE (BEAKER) 338 U/L 125-220 Specimen slightly hemolyzed (test uowz=555) CBC W/PLT COUNT & AUTO [id number] 13:17:00 Test Item Value Reference Range Comments WHITE BLOOD CELL COUNT (BEAKER) (test ulfw=522) 11.2 K/ L 3.5-10.5 RED BLOOD CELL COUNT (BEAKER) (test jgho=576) 3.14 M/ L 4.63-6.08 HEMOGLOBIN (BEAKER) (test vzsw=602) 8.6 GM/DL 13.7-17.5 HEMATOCRIT (BEAKER) (test jtcm=054) 28.2 % 40.1-51.0 MEAN CORPUSCULAR VOLUME (BEAKER) (test zkvd=864) 89.8 fL 79.0-92.2 MEAN CORPUSCULAR HEMOGLOBIN (BEAKER) (test 27.4 pg 25.7-32.2 kvuz=552) MEAN CORPUSCULAR HEMOGLOBIN CONC (BEAKER) (test 30.5 GM/DL 32.3-36.5 qnfy=706) RED CELL DISTRIBUTION WIDTH (BEAKER) (test 17.2 % 11.6-14.4 wcjs=092) PLATELET COUNT (BEAKER) (test hpud=868) 196 K/CU MM 150-450 MEAN PLATELET VOLUME (BEAKER) (test rmbw=923) 10.2 fL 9.4-12.4 NUCLEATED RED BLOOD CELLS (BEAKER) (test 0 /100 WBC 0-0 upmk=026) NEUTROPHILS RELATIVE PERCENT (BEAKER) (test 79 % iobr=461) LYMPHOCYTES RELATIVE PERCENT (BEAKER) (test 9 % nnqz=926) MONOCYTES RELATIVE PERCENT (BEAKER) (test 11 % dljf=853) EOSINOPHILS RELATIVE PERCENT (BEAKER) (test 1 % udvn=150) BASOPHILS RELATIVE PERCENT (BEAKER) (test 0 % lzse=453) NEUTROPHILS ABSOLUTE COUNT (BEAKER) (test 8.88 K/ L 1.78-5.38 rhum=975) LYMPHOCYTES ABSOLUTE COUNT (BEAKER) (test 0.96 K/ L 1.32-3.57 ykng=967) MONOCYTES ABSOLUTE COUNT (BEAKER) (test 1.26 K/ L 0.30-0.82 qgtq=261) EOSINOPHILS ABSOLUTE COUNT (BEAKER) (test 0.06 K/ L 0.04-0.54 qmli=875) BASOPHILS ABSOLUTE COUNT (BEAKER) (test 0.02 K/ L 0.01-0.08 zuzm=331) IMMATURE GRANULOCYTES-RELATIVE PERCENT (BEAKER) 0 % 0-1 (test yhtc=6622) POCT-GLUCOSE [id number] 12:30:00 Test Item Value Reference Range Comments POC-GLUCOSE METER (BEAKER) 193 mg/dL 70-110 TESTED AT [facility] [address] [facility] (test obzb=6921) [place] [address] VANCOMYCIN LEVEL, [id number] 09:00:00 Test Item Value Reference Range Comments VANCOMYCIN RANDOM (BEAKER) (test yfdc=601) 22.6 ug/mL Reference Range: No [id number] 07:29:00 Test Item Value Reference Range Comments MAGNESIUM (BEAKER) (test kpgq=575) 1.9 mg/dL 1.6-2.6 BASIC METABOLIC [id number] 07:29:00 Test Item Value Reference Range Comments SODIUM (BEAKER) (test 141 meq/L 136-145 doon=935) POTASSIUM (BEAKER) (test 3.7 meq/L 3.5-5.1 grfe=843) CHLORIDE (BEAKER) (test 113 meq/L 98-107 vzsu=343) CO2 (BEAKER) (test 23 meq/L 22-29 zjyp=042) BLOOD UREA NITROGEN 23 mg/dL 7-21 (BEAKER) (test ocwd=641) CREATININE (BEAKER) (test 1.11 mg/dL 0.57-1.25 lyqi=433) GLUCOSE RANDOM (BEAKER) 100 mg/dL 70-105 (test fyew=445) CALCIUM (BEAKER) (test 8.2 mg/dL 8.4-10.2 xuav=261) EGFR (BEAKER) (test 78 mL/min/1.73 sq m ESTIMATED GFR IS NOT lpmu=0314) ACCURATE CREATININE CLEARANCE IN PREDICTING GLOMERULAR FILTRATION RATE. ESTIMATED GFR IS NOT APPLICABLE FOR DIALYSIS PATIENTS. CBC W/PLT COUNT & AUTO [id number] 07:00:00 Test Item Value Reference Range Comments WHITE BLOOD CELL COUNT (BEAKER) (test zhbe=052) 11.9 K/ L 3.5-10.5 RED BLOOD CELL COUNT (BEAKER) (test sfbq=857) 2.36 M/ L 4.63-6.08 HEMOGLOBIN (BEAKER) (test dwar=766) 6.6 GM/DL 13.7-17.5 HEMATOCRIT (BEAKER) (test sjxi=851) 21.2 % 40.1-51.0 MEAN CORPUSCULAR VOLUME (BEAKER) (test chgb=821) 89.8 fL 79.0-92.2 MEAN CORPUSCULAR HEMOGLOBIN (BEAKER) (test 28.0 pg 25.7-32.2 qage=823) MEAN CORPUSCULAR HEMOGLOBIN CONC (BEAKER) (test 31.1 GM/DL 32.3-36.5 wium=518) RED CELL DISTRIBUTION WIDTH (BEAKER) (test 18.6 % 11.6-14.4 fxyj=218) PLATELET COUNT (BEAKER) (test drjv=086) 210 K/CU MM 150-450 MEAN PLATELET VOLUME (BEAKER) (test rseb=608) 10.7 fL 9.4-12.4 NUCLEATED RED BLOOD CELLS (BEAKER) (test 0 /100 WBC 0-0 ykmw=800) NEUTROPHILS RELATIVE PERCENT (BEAKER) (test 77 % vust=978) LYMPHOCYTES RELATIVE PERCENT (BEAKER) (test 10 % gbjq=671) MONOCYTES RELATIVE PERCENT (BEAKER) (test 12 % ciih=004) EOSINOPHILS RELATIVE PERCENT (BEAKER) (test 0 % heda=474) BASOPHILS RELATIVE PERCENT (BEAKER) (test 0 % urhn=624) NEUTROPHILS ABSOLUTE COUNT (BEAKER) (test 9.19 K/ L 1.78-5.38 nckh=869) LYMPHOCYTES ABSOLUTE COUNT (BEAKER) (test 1.21 K/ L 1.32-3.57 lcgr=517) MONOCYTES ABSOLUTE COUNT (BEAKER) (test 1.38 K/ L 0.30-0.82 tmid=438) EOSINOPHILS ABSOLUTE COUNT (BEAKER) (test 0.03 K/ L 0.04-0.54 bcpp=136) BASOPHILS ABSOLUTE COUNT (BEAKER) (test 0.04 K/ L 0.01-0.08 lrks=261) IMMATURE GRANULOCYTES-RELATIVE PERCENT (BEAKER) 0 % 0-1 (test ndhl=7853) POCT-GLUCOSE [id number] 06:47:00 Test Item Value Reference Range Comments POC-GLUCOSE METER (BEAKER) 128 mg/dL 70-110 TESTED AT [address] (test cmmk=9944) [facility] [address] POCT-GLUCOSE [id number] 01:25:00 Test Item Value Reference Range Comments POC-GLUCOSE METER (BEAKER) 81 mg/dL 70-110 TESTED AT [address] (test ibvs=8356) [facility] [address] VANCOMYCIN LEVEL, [id number] 21:59:00 Test Item Value Reference Range Comments VANCOMYCIN TROUGH (BEAKER) (test qcxb=925) 26.3 ug/mL 10.0-20.0 WAIT FOR LEVEL TO RETURN BEFORE GIVING DOSE. If vancomycin trough level > 20 , HOLD dose and contact MD and pharmacist.POCT-GLUCOSE [id number] 17:48:00 Test Item Value Reference Range Comments POC-GLUCOSE METER (BEAKER) 96 mg/dL 70-110 TESTED AT [address] (test jofg=9379) [facility] [address] POCT-GLUCOSE [id number] 15:40:00 Test Item Value Reference Range Comments POC-GLUCOSE METER (BEAKER) 106 mg/dL 70-110 TESTED AT [address] (test kmvi=6094) [facility] [address] CBC W/PLT COUNT & AUTO [id number] 14:21:00 Test Item Value Reference Range Comments WHITE BLOOD CELL COUNT (BEAKER) (test ogua=009) 12.6 K/ L 3.5-10.5 RED BLOOD CELL COUNT (BEAKER) (test xfbt=084) 2.64 M/ L 4.63-6.08 HEMOGLOBIN (BEAKER) (test secj=025) 7.3 GM/DL 13.7-17.5 HEMATOCRIT (BEAKER) (test lxqr=219) 23.8 % 40.1-51.0 MEAN CORPUSCULAR VOLUME (BEAKER) (test ptur=393) 90.2 fL 79.0-92.2 MEAN CORPUSCULAR HEMOGLOBIN (BEAKER) (test 27.7 pg 25.7-32.2 izts=492) MEAN CORPUSCULAR HEMOGLOBIN CONC (BEAKER) (test 30.7 GM/DL 32.3-36.5 jzzv=054) RED CELL DISTRIBUTION WIDTH (BEAKER) (test 18.2 % 11.6-14.4 asmo=126) PLATELET COUNT (BEAKER) (test lnhd=556) 225 K/CU MM 150-450 MEAN PLATELET VOLUME (BEAKER) (test tyrz=806) 10.6 fL 9.4-12.4 NUCLEATED RED BLOOD CELLS (BEAKER) (test 0 /100 WBC 0-0 lmna=471) (CELLAVISION MANUAL DIFF)2018-07-13 14:21:00 Test Item Value Reference Range Comments NEUTROPHILS - REL (CELLAVISION)(BEAKER) (test 89 % ygmq=3914) LYMPHOCYTES - REL (CELLAVISION)(BEAKER) (test 5 % bwuy=4705) MONOCYTES - REL (CELLAVISION)(BEAKER) (test 5 % ihcv=6922) ATYPICAL LYMPHOCYTES - REL (CELLAVISION)(BEAKER) 1 % 0-0 (test sjhe=0852) NEUTROPHILS - ABS (CELLAVISION)(BEAKER) (test 11.21 K/ul 1.78-5.38 kpud=7155) LYMPHOCYTES - ABS (CELLAVISION)(BEAKER) (test 0.63 K/ul 1.32-3.57 bqnr=3754) MONOCYTES - ABS (CELLAVISION)(BEAKER) (test 0.63 K/uL 0.30-0.82 dgnx=6446) ATYPICAL LYMPHOCYTES - ABS (CELLAVISION)(BEAKER) 0.13 K/uL 0.00-0.00 (test gomm=2367) TOTAL COUNTED (BEAKER) (test kabd=5591) 100 PLT MORPHOLOGY (BEAKER) (test gecr=814) Normal SMUDGE CELLS (BEAKER) (test gdkt=3538) Present ANISOCYTOSIS (BEAKER) (test clpe=962) 1+ few POIKILOCYTES (BEAKER) (test tkqo=179) 2+ moderate CESILIA CELLS (BEAKER) (test bxxd=815) 1+ few PLATELET CONCENTRATION (CELLAVISION)(BEAKER) Adequate (test xgfc=8402) Received comment: User comments: Slide comments:POCT-GLUCOSE [id number] 12: 02:00 Test Item Value Reference Range Comments POC-GLUCOSE METER (BEAKER) 84 mg/dL 70-110 TESTED AT [facility] [address] [facility] (test jbik=4795) [facility] [address] [id number] 07:12:00 Test Item Value Reference Range Comments MAGNESIUM (BEAKER) (test zqhl=676) 1.6 mg/dL 1.6-2.6 BASIC METABOLIC [id number] 07:12:00 Test Item Value Reference Range Comments SODIUM (BEAKER) (test 140 meq/L 136-145 tgvk=304) POTASSIUM (BEAKER) (test 3.7 meq/L 3.5-5.1 vhyu=347) CHLORIDE (BEAKER) (test 110 meq/L 98-107 ocgv=124) CO2 (BEAKER) (test 25 meq/L 22-29 aeyi=138) BLOOD UREA NITROGEN 27 mg/dL 7-21 (BEAKER) (test dxnk=155) CREATININE (BEAKER) (test 1.07 mg/dL 0.57-1.25 eyuu=345) GLUCOSE RANDOM (BEAKER) 67 mg/dL 70-105 (test kxgi=705) CALCIUM (BEAKER) (test 8.5 mg/dL 8.4-10.2 nttr=070) EGFR (BEAKER) (test 81 mL/min/1.73 sq m ESTIMATED GFR IS NOT tljk=2253) ACCURATE CREATININE CLEARANCE IN PREDICTING GLOMERULAR FILTRATION RATE. ESTIMATED GFR IS NOT APPLICABLE FOR DIALYSIS PATIENTS. POCT-GLUCOSE [id number] 06:24:00 Test Item Value Reference Range Comments POC-GLUCOSE METER (BEAKER) 71 mg/dL 70-110 TESTED AT [address] (test hyni=4898) [place] [address] POCT-GLUCOSE [id number] 00:20:00 Test Item Value Reference Range Comments POC-GLUCOSE METER (BEAKER) 106 mg/dL 70-110 TESTED AT [address] (test rotc=6513) [place] [address] POCT-GLUCOSE [id number] 18:43:00 Test Item Value Reference Range Comments POC-GLUCOSE METER (BEAKER) 104 mg/dL 70-110 TESTED AT [address] (test mgtc=9155) [place] [address] POCT-GLUCOSE [id number] 12:56:00 Test Item Value Reference Range Comments POC-GLUCOSE METER (BEAKER) 113 mg/dL 70-110 TESTED AT [address] (test xdqe=3766) [place] [address] CBC W/PLT COUNT & AUTO [id number] 11:01:00 Test Item Value Reference Range Comments WHITE BLOOD CELL COUNT (BEAKER) (test wfyd=820) 12.9 K/ L 3.5-10.5 RED BLOOD CELL COUNT (BEAKER) (test dspz=257) 2.66 M/ L 4.63-6.08 HEMOGLOBIN (BEAKER) (test dbcr=044) 7.5 GM/DL 13.7-17.5 HEMATOCRIT (BEAKER) (test ukdw=601) 24.1 % 40.1-51.0 MEAN CORPUSCULAR VOLUME (BEAKER) (test mtyb=355) 90.6 fL 79.0-92.2 MEAN CORPUSCULAR HEMOGLOBIN (BEAKER) (test 28.2 pg 25.7-32.2 fkjd=986) MEAN CORPUSCULAR HEMOGLOBIN CONC (BEAKER) (test 31.1 GM/DL 32.3-36.5 iqdb=718) RED CELL DISTRIBUTION WIDTH (BEAKER) (test 18.4 % 11.6-14.4 plci=322) PLATELET COUNT (BEAKER) (test zlpk=108) 208 K/CU MM 150-450 MEAN PLATELET VOLUME (BEAKER) (test hwyf=586) 10.8 fL 9.4-12.4 NUCLEATED RED BLOOD CELLS (BEAKER) (test 0 /100 WBC 0-0 znnr=937) (CELLAVISION MANUAL DIFF)2018-07-12 11:01:00 Test Item Value Reference Range Comments NEUTROPHILS - REL (CELLAVISION)(BEAKER) (test 86 % ioya=1906) LYMPHOCYTES - REL (CELLAVISION)(BEAKER) (test 1 % tmit=6280) MONOCYTES - REL (CELLAVISION)(BEAKER) (test 9 % ahfk=5961) BANDS - REL (CELLAVISION)(BEAKER) (test 3 % 0-10 lwgc=0646) ATYPICAL LYMPHOCYTES - REL (CELLAVISION)(BEAKER) 1 % 0-0 (test hvcq=5142) NEUTROPHILS - ABS (CELLAVISION)(BEAKER) (test 11.09 K/ul 1.78-5.38 ijvt=2232) LYMPHOCYTES - ABS (CELLAVISION)(BEAKER) (test 0.13 K/ul 1.32-3.57 cagm=4914) MONOCYTES - ABS (CELLAVISION)(BEAKER) (test 1.16 K/uL 0.30-0.82 xmri=2046) BANDS - ABS (CELLAVISION)(BEAKER) (test 0.39 K/uL 0.00-0.80 wrgr=4757) ATYPICAL LYMPHOCYTES - ABS (CELLAVISION)(BEAKER) 0.13 K/uL 0.00-0.00 (test ttem=0800) TOTAL COUNTED (BEAKER) (test xxfi=6539) 100 WBC MORPHOLOGY (BEAKER) (test mqsx=411) Normal PLT MORPHOLOGY (BEAKER) (test qmwb=004) Normal POLYCHROMATOPHILLIC RBCS(BEAKER) (test cfce=598) 1+ few HYPOCHROMIA (BEAKER) (test ueej=891) 1+ few ARTIFACT (CELLAVISION)(BEAKER) (test lhrd=2965) Present PLATELET CONCENTRATION (CELLAVISION)(BEAKER) Adequate (test idrm=3288) Received comment: User comments: Slide comments:POCT-GLUCOSE [id number] 07: 57:00 Test Item Value Reference Range Comments POC-GLUCOSE METER (BEAKER) 96 mg/dL 70-110 TESTED AT [facility] [address] (test [id number]) [facility] [address] [id number] 07:34:00 Test Item Value Reference Range Comments MAGNESIUM (BEAKER) (test xdrk=108) 1.8 mg/dL 1.6-2.6 BASIC METABOLIC [id number] 07:34:00 Test Item Value Reference Range Comments SODIUM (BEAKER) (test 138 meq/L 136-145 nnrn=267) POTASSIUM (BEAKER) (test 4.0 meq/L 3.5-5.1 lakb=894) CHLORIDE (BEAKER) (test 108 meq/L 98-107 kbmu=148) CO2 (BEAKER) (test 26 meq/L 22-29 xfub=100) BLOOD UREA NITROGEN 33 mg/dL 7-21 (BEAKER) (test iyvb=071) CREATININE (BEAKER) (test 1.10 mg/dL 0.57-1.25 fmcu=668) GLUCOSE RANDOM (BEAKER) 79 mg/dL 70-105 (test gulu=529) CALCIUM (BEAKER) (test 8.4 mg/dL 8.4-10.2 eicb=660) EGFR (BEAKER) (test 79 mL/min/1.73 sq m ESTIMATED GFR IS NOT ofzb=0154) ACCURATE CREATININE CLEARANCE IN PREDICTING GLOMERULAR FILTRATION RATE. ESTIMATED GFR IS NOT APPLICABLE FOR DIALYSIS PATIENTS.
--- NOTE | 2018-12-04 19:48 | ER ---
Nurse's Notes [facility] Name: Leonardo Kumari Age: 78 yrs Sex: Male : 1940 Arrival Date: 12/04/2018 Time: 17:30 Bed 15 Private MD: Diagnosis: Complications involving jejunostomy tube Presentation: 12/04 17:24 Presenting complaint: EMS states: Pt. is from [facility]. Called out rb1 for a clogged Jejunostomy Tube. BP 130/70, P 83, R 18, 99% RA. Facility attempted to unclog the tube using Coke Cola, but was unsuccessful . Transition of care: patient was received from another setting of care (long-term care [facility]), [facility]. Onset of symptoms was December 04, 2018. Risk Assessment: Do you want to hurt yourself or someone else? Patient reports no desire to harm self or others. Initial Sepsis Screen: Does the patient meet any 2 criteria? No. Patient's initial sepsis screen is negative. Does the patient have a suspected source of infection? No. Patient's initial sepsis screen is negative. Care prior to arrival: None. 17:24 Method Of Arrival: EMS: [facility] rb1 17:24 Acuity: [place] 4 rb1 Triage Assessment: 17:24 General: Appears in no apparent distress. comfortable, Behavior is calm, cooperative. rb1 Pain: Denies pain. Neuro: Level of Consciousness is awake. Cardiovascular: Capillary refill < 3 seconds is brisk in bilateral fingers. Respiratory: Airway is patent Respiratory effort is even, unlabored, Respiratory pattern is regular, symmetrical. GI: in place, clogged Jejunostomy tube per facility. : incontinence. Derm: Skin is dry, Skin is normal, Skin temperature is warm. Musculoskeletal: contracted limbs. Historical: - Allergies: 17:24 Stadol; rb1 17:24 Versed; rb1 17:24 Ibuprofen; rb1 - Home Meds: 17:24 acetaminophen-codeine 300-30 mg Oral tab 1 tab every 6 hours for Pain [Active]; rb1 amlodipine 5 mg tab 1 tab once daily [Active]; aspirin 81 mg Oral TbEC 1 tab once daily [Active]; atorvastatin 80 mg Oral tab 1 tab nightly [Active]; carvedilol 25 mg Oral tab 1 tab nightly [Active]; clopidogrel 75 mg Oral tab 1 tab once daily [Active]; cyclobenzaprine 10 mg Oral tab 1 tab every 8 hours for Muscle Spasm [Active]; docusate sodium 50 mg/5 mL Oral liqd 10 mL once daily [Active]; hydralazine 25 mg Oral tab every 8 hours for Hypertension [Active]; Levemir FlexTouch 100 unit/mL (3 mL) subcutaneous inpn 10 unit daily [Active]; multivitamin with minerals Oral 5 mL daily [Active]; Novolog 100 unit/mL Sub-Q soln twice a day [Active]; paroxetine HCl 10 mg Oral tab 1 tab once daily [Active]; Pepcid 40 mg Oral tab nightly [Active]; tramadol 50 mg Oral tab 1 tab every 6 hours for Pain [Active]; - PMHx: 17:24 Allergic rhinitis; Aphasia; constipation; Contracture; Dementia; Depression; Diabetes - rb1 NIDDM; DYSPHAGIA; GERD; GI Bleed; Hemiplegia/hemiparesis; High Cholesterol; Hypertension; hypotension; MRSA; Paraplegia; UTI; - PSHx: 17:24 Unable to obtain; rb1 - Immunization history:: Adult Immunizations up to date. - Social history:: Smoking status: unknown. - Ebola Screening: : Patient negative for fever greater than or equal to 101.5 degrees Fahrenheit, and additional compatible Ebola Virus Disease symptoms. Screenin:24 Abuse screen: Denies threats or abuse. Nutritional screening: On Tube feedings. rb1 Tuberculosis screening: No symptoms or risk factors identified. Fall Risk No fall in past 12 months (0 pts). Secondary diagnosis (15 points) impaired mobility, No IV (0 pts). Ambulatory Aid- None/Bed Rest/Nurse Assist (0 pts). Gait- Impaired (20 pts.). Mental Status- Overestimates/Forgets Limitations (15 pts.). Total Hsieh Fall Scale indicates High Risk Score (45 or more points). Fall prevention measures have been instituted. Side Rails Up X 2 Placed Close to Nursing Station 1:1 Attendant Assigned Frequent Obs/Assessments Occuring As available patient and family educated on Fall Prevention Program and Strategies. Assessment: 17:24 General: See triage assessment. rb1 18:23 Reassessment: Patient appears in no apparent distress at this time. No changes from rb1 previously documented assessment. 18:40 Reassessment: Spoke to Rakel at [place] [phone]. [facility] [address] Provider notified. 18:51 Reassessment: Alexis Benavides was able to find information from a previous visit that rb1 stated Dr. Soto placed the Jejunostomy tube. 19:15 General: Appears in no apparent distress. Behavior is calm, cooperative, appropriate ea for age. Pain: Denies pain. Neuro: Level of Consciousness is awake, alert, obeys commands, Oriented to person. Cardiovascular: Patient's skin is warm and dry. Respiratory: No deficits noted. GI: Jejunostomy tube in place, site clean . Unable to flush tube. Musculoskeletal: contractures to inez lower extremities. 20:30 Reassessment: Patient and/or family updated on plan of care and expected duration. Pain ea level reassessed. Pt resting with eyes closed, respirations even and unlabored, chest expansions even and unlabored. No s/s of pain or discomfort noted at this time. 21:20 Reassessment: Patient and/or family updated on plan of care and expected duration. Pain ea level reassessed. Pt alert and oriented to self. Pt admitted to second floor, via stretcher per tech, pt tolerating well. Vital Signs: 17:24 BP 124 / 65; Pulse 84; Resp 16; Temp 97.8(TE); Pulse Ox 99% on R/A; Pain 0/10; rb1 18:00 BP 133 / 58; Pulse 52; Resp 17; Temp 98.1; Pulse Ox 100% on R/A; Pain 0/10; rb1 20:31 BP 128 / 67; Pulse 60; Resp 18; Pulse Ox 99% ; ea 20:38 BP 128 / 67; Pulse 89; Resp 18; Pulse Ox 98% on R/A; tl2 ED Course: 17:24 Arm band placed on right wrist. rb1 17:24 Patient has correct armband on for positive identification. Bed in low position. Call rb1 light in reach. Side rails up X2. Pulse ox on. NIBP on. Warm blanket given. 17:30 Patient arrived in ED. rb1 17:35 Triage completed. rb1 17:39 [facility]ides [facility]. jr8 17:39 Surinder Salcedo MD is Attending Physician. jr8 18:01 Escudero, Carla, RN is Primary Nurse. rb1 19:00 Report given to VIVIEN Gunn. rb1 19:46 Dharmesh Piper MD is Hospitalizing Provider. jr8 20:20 Inserted saline lock: 24 gauge in left hand, using aseptic technique. Blood collected. ea 21:24 No provider procedures requiring assistance completed. Patient admitted, IV remains in ea place. Administered Medications: No medications were administered Outcome: 19:47 Decision to Hospitalize by Provider. jr8 21:25 Admitted to Med/surg accompanied by tech, via stretcher, with chart, Report called to ea Receiving nurse on second floor 21:25 Condition: stable 21:25 Instructed on discharge instructions, follow up and referral plans. medication usage. 21:33 Patient left the ED. ea Signatures: Alexis Benavides PA PA jr8 Carla Escudero, RN RN rb1 Hannah Maher RN RN tl2 Velai Jean-Baptiste RN RN ea Corrections: (The following items were deleted from the chart) 18:54 17:24 Presenting complaint: EMS states: Pt. is from [facility]. [facility] Called out for a clogged PEG Tube. BP 130/70, P 83, R 18, 99% RA. Facility attempted to unclog the tube using Coke Cola, but was unsuccessful . rb1 18:55 17:24 GI: PEG tube in place, clogged tube per facility [facility] rb1 20:31 19:15 Neuro: Level of Consciousness is awake, alert, obeys commands, Oriented to ea person, place, time, situation, ea
--- NOTE | 2018-12-04 19:48 | EDPHYS ---
Physician Documentation [facility] Name: Leonardo Kumari Age: 78 yrs Sex: Male : 1940 Arrival Date: 12/04/2018 Time: 17:30 Bed 15 Private MD: ED Physician Surinder Salcedo HPI: 12/04 18:17 This 78 yrs old Black Male presents to ER via EMS with complaints of Clogged PEG Tube. jr8 18:17 Patient was sent from [place] to ED for clogged jejunostomy tube. Tried soda at [place] without jr8 relief . Onset: The symptoms/episode began/occurred acutely, today. Severity of symptoms: At their worst the symptoms were mild in the emergency department the symptoms are unchanged. It is unknown whether or not the patient has had similar symptoms in the past. It is unknown whether or not the patient has recently seen a physician. Historical: - Allergies: 17:24 Stadol; rb1 17:24 Versed; rb1 17:24 Ibuprofen; rb1 - Home Meds: 17:24 acetaminophen-codeine 300-30 mg Oral tab 1 tab every 6 hours for Pain [Active]; rb1 amlodipine 5 mg tab 1 tab once daily [Active]; aspirin 81 mg Oral TbEC 1 tab once daily [Active]; atorvastatin 80 mg Oral tab 1 tab nightly [Active]; carvedilol 25 mg Oral tab 1 tab nightly [Active]; clopidogrel 75 mg Oral tab 1 tab once daily [Active]; cyclobenzaprine 10 mg Oral tab 1 tab every 8 hours for Muscle Spasm [Active]; docusate sodium 50 mg/5 mL Oral liqd 10 mL once daily [Active]; hydralazine 25 mg Oral tab every 8 hours for Hypertension [Active]; Levemir FlexTouch 100 unit/mL (3 mL) subcutaneous inpn 10 unit daily [Active]; multivitamin with minerals Oral 5 mL daily [Active]; Novolog 100 unit/mL Sub-Q soln twice a day [Active]; paroxetine HCl 10 mg Oral tab 1 tab once daily [Active]; Pepcid 40 mg Oral tab nightly [Active]; tramadol 50 mg Oral tab 1 tab every 6 hours for Pain [Active]; - PMHx: 17:24 Allergic rhinitis; Aphasia; constipation; Contracture; Dementia; Depression; Diabetes - rb1 NIDDM; DYSPHAGIA; GERD; GI Bleed; Hemiplegia/hemiparesis; High Cholesterol; Hypertension; hypotension; MRSA; Paraplegia; UTI; - PSHx: 17:24 Unable to obtain; rb1 - Immunization history:: Adult Immunizations up to date. - Social history:: Smoking status: unknown. - Ebola Screening: : Patient negative for fever greater than or equal to 101.5 degrees Fahrenheit, and additional compatible Ebola Virus Disease symptoms. ROS: 18:17 Unable to obtain ROS due to baseline dementia. jr8 Exam: 18:17 Eyes: Pupils equal round and reactive to light, extra-ocular motions intact. Lids and jr8 lashes normal. Conjunctiva and sclera are non-icteric and not injected. Cornea within normal limits. Periorbital areas with no swelling, redness, or edema. ENT: Nares patent. No nasal discharge, no septal abnormalities noted. Tympanic membranes are normal and external auditory canals are clear. Oropharynx with no redness, swelling, or masses, exudates, or evidence of obstruction, uvula midline. Mucous membranes moist. Neck: Trachea midline, no thyromegaly or masses palpated, and no cervical lymphadenopathy. Supple, full range of motion without nuchal rigidity Cardiovascular: Regular rate and rhythm with a normal S1 and S2. No gallops, murmurs, or rubs. Normal PMI, no JVD. No pulse deficits. Respiratory: Lungs have equal breath sounds bilaterally, clear to auscultation and percussion. No rales, rhonchi or wheezes noted. No increased work of breathing, no retractions or nasal flaring. Back: No acute abnormality upon visualization. No grimace upon palpation Skin: Warm, dry with normal turgor. Normal color with no rashes, no lesions, and no evidence of cellulitis. MS/ Extremity: Pulses equal, no cyanosis. Neurovascular intact. contracted 18:17 Neuro: Patient awake and will grown but has incomprehensible speech. unable to assess full neurologic status due to dementia 18:17 Abdomen/GI: Inspection: Old PEG tube site noted without tube in site. No discharge or erythema noted. Jejunostomy site noted with feeding tube in place. No erythema or discharge around tube , Bowel sounds: active, all quadrants, Palpation: soft, in all quadrants, Liver: no appreciated palpable abnormalities. Vital Signs: 17:24 BP 124 / 65; Pulse 84; Resp 16; Temp 97.8(TE); Pulse Ox 99% on R/A; Pain 0/10; rb1 18:00 BP 133 / 58; Pulse 52; Resp 17; Temp 98.1; Pulse Ox 100% on R/A; Pain 0/10; rb1 20:31 BP 128 / 67; Pulse 60; Resp 18; Pulse Ox 99% ; ea 20:38 BP 128 / 67; Pulse 89; Resp 18; Pulse Ox 98% on R/A; tl2 MDM: 17:39 Patient medically screened. jr8 19:45 Data reviewed: vital signs, nurses notes, and as a result, I will admit patient. Data jr8 interpreted: Pulse oximetry: on room air is 100 %. Interpretation: normal. Counseling: I had a detailed discussion with the patient and/or guardian regarding: the historical points, exam findings, and any diagnostic results supporting the discharge/admit diagnosis, the need for further work-up and treatment in the hospital. Physician consultation: Dharmesh Piper MD was called at 19:45, was contacted at 19:45, regarding admission, and will see patient in ED. ED course: Dr. Soto consulted and will see patient in the AM to see if he can unclog the the feeding tube. 12/04 19:46 Order name: CBC with Diff; Complete Time: 20:47 8 12/04 19:46 Order name: Basic Metabolic Panel jr8 Administered Medications: No medications were administered Disposition: 12/05 07:01 Co-signature as Attending Physician, Surinder Salcedo MD I agree with the assessment and madisyn plan of care. Disposition: 12/04/18 19:47 Hospitalization ordered by Dharmesh Piper for Observation. Preliminary diagnosis is Complications involving jejunostomy tube . - Bed requested for Telemetry/MedSurg (observation). - Status is Observation. ea - Condition is Stable. - Problem is new. - Symptoms are unchanged. UTI on Admission? No Signatures: Dispatcher [employer] Denise Gil RN Surinder Bennett MD MD cha Roszak, Josh, PA PA jr8 Carla Escudero, RN RN rb1 Velia Jean-Baptiste RN RN ea Corrections: (The following items were deleted from the chart) 12/04 20:37 19:47 Hospitalization Ordered by Dharmesh Piper MD for Observation. Preliminary dw diagnosis is Complications involving jejunostomy tube . Bed requested for Telemetry/MedSurg (observation). Status is Observation. Condition is Stable. Problem is new. Symptoms are unchanged. UTI on Admission? No. jr8 21:33 20:37 12/04/2018 19:47 Hospitalization Ordered by Dharmesh Piper MD for Observation. ea Preliminary diagnosis is Complications involving jejunostomy tube . Bed requested for Telemetry/MedSurg (observation). Status is Observation. Condition is Stable. Problem is new. Symptoms are unchanged. UTI on Admission? No. dw
--- NOTE | 2018-12-04 20:16 | P.HP ---
Certification for Inpatient Patient admitted to: Observation With expected LOS: <2 Midnights Practitioner: I am a practitioner with admitting privileges, knowledge of patient current condition, hospital course, and medical plan of care. Services: Services provided to patient in accordance with Admission requirements found in Title 42 Section 412.3 of the Code of Federal Regulations Patient History Date of Service: 12/04/18 Reason for admission: jejunostomy malfunction History of Present Illness: Mr Kumari is a 78 years old male with history of CVA, contracted, DM II, dementia, dysphagia s/p jejunostomy placement, previously PEG tube but was removed due to malfunction, I believe he has a fistula now. Today the patient was sent to ER from SNF since his jejunostomy tube was clogged. The use coke to unclogged, but were unsuccessful. No history of fever, chills, or other associated symptom. He is not communicative as baseline. Allergies butorphanol tartrate [From Stadol] Allergy (Verified 11/04/18 22:40) Unknown midazolam HCl [From Versed] Allergy (Verified 11/04/18 22:40) Unknown Home medications list reviewed: Yes Home Medications: Amlodipine [Norvasc*] 5 mg FT DAILY 11/04/18 Aspirin Chewable [Aspirin Chewable*] 81 mg FT DAILY 11/04/18 Atorvastatin Calcium [Lipitor] 80 mg FT BEDTIME 11/04/18 Carvedilol [Coreg*] 25 mg FT BEDTIME 11/04/18 Clopidogrel Bisulfate [Plavix*] 75 mg FT DAILY 11/04/18 Codeine/APAP [Tylenol #3*] 1 tab FT Q6HP PRN 11/04/18 Cyclobenzaprine HCl 10 mg FT Q8HP PRN 11/04/18 Docusate Sodium 10 ml FT DAILY 11/04/18 Famotidine [Pepcid] 40 mg FT BEDTIME 11/04/18 Hydralazine [Apresoline*] 25 mg FT TID 11/04/18 Insulin Aspart [Novolog] See Protocol SQ BID 11/04/18 Insulin Detemir [Levemir Flextouch] 10 unit SQ DAILY 11/04/18 Ketoconazole 1 isaias TOP SEECOM 11/04/18 Multivit &Minerals/Ferrous Fum [Multivitamin Liquid] 5 ml FT DAILY 11/04/18 PARoxetine HCl [Paxil*] 10 mg FT DAILY 11/04/18 Tramadol HCl [Ultram] 50 mg FT Q6HP PRN 11/04/18 Collagenase [Santyl Ointment*] 1 appl TOP DAILY #1 tube 11/23/18 Gentamicin Inj [Garamycin Inj*] 140 mg IV Q48H #1 vial 11/23/18 Glucerna 1.5 Jose 45 ml RTH CONT bot 11/23/18 Meropenem [Merrem 500 MG/100 ML NS IVPB] 500 mg IV Q8HR #1 bag 11/23/18 - Past Medical/Surgical History Diabetic: Yes -: Diabetes mellitus type 2 -: CVA with Right sided weakness Apr 2014 -: HTN -: Chronic renal disease -: Contracture to the right lower extremity -: History of UTIs, sepsis -: PEG tube in place due to malnutrition -: Depression -: GERD -: LIPIDS -: PEG tube placement Psychosocial/ Personal History: Sister has power of insurance attorney. He currently lives at a group home. - Family History Family History: Reviewed- Non-Contributory - Social History Alcohol use: No CD- Drugs: No Caffeine use: No Place of Residence: [place] Review of Systems 10-point ROS is otherwise unremarkable Physical Examination - Physical Exam General: Alert, In no apparent distress, Demented HEENT: Atraumatic, PERRLA, Mucous membr. moist/pink, Sclerae nonicteric Neck: Supple, 2+ carotid pulse no bruit, No LAD, Without JVD or thyroid abnormality Respiratory: Normal air movement, Other (coarse bilateral) Cardiovascular: Normal S1 S2, No gallops Gastrointestinal: Normal bowel sounds, No tenderness Musculoskeletal: No tenderness Integumentary: Other (fistula gastrocutanea) Neurological: Abnormal tone (contracted), Dementia Lymphatics: No axilla or inguinal lymphadenopathy Assessment and Plan - Problems (Diagnosis) (1) Jejunostomy malfunction Current Visit: Yes Status: Acute (2) Functional quadriplegia Current Visit: No Status: Acute (3) Diabetes mellitus Onset Date: 01/11/17 Current Visit: No Status: Chronic Qualifiers: Diabetes mellitus type: type 2 Diabetes mellitus demand manager insulin use: with demand manager use Diabetes mellitus complication status: with unspecified complications Qualified Code(s): E11.8 - Type 2 diabetes mellitus with unspecified complications; Z79.4 - care home (current) use of insulin (4) History of CVA with residual deficit Onset Date: 01/11/17 Current Visit: No Status: Chronic (5) Hypertension Onset Date: 01/11/17 Current Visit: No Status: Chronic Qualifiers: Hypertension type: essential hypertension (6) Vascular dementia Onset Date: 10/15/14 Current Visit: No Status: Chronic Qualifiers: Dementia behavioral disturbance: without behavioral disturbance Qualified Code(s): F01.50 - Vascular dementia without behavioral disturbance - Plan The patient will be admitted to the hospital due to jejunsotomy malfunction. The case was discussed with Dr Soto, who will attempt to unclog the tube in the morning. Lab work from today still pending. - Advance Directives Does patient have a Living Will: No Does patient have a Durable POA for Healthcare: No - Code Status/Comfort Care Code Status Assessed: Yes Code Status: Full Code
[2018-12-04 20:36] LABS: Absolute Monocytes 0.8 K/uL (0.1-1.3); Absolute Neutrophil 7.2 K/uL (1.8-8.0); Basophils % 0.6 % (0-1.3); Eosinophils % 2.7 % (0-4.4); Hematocrit 25.3 % (39.6-49.0); Monocytes % 8.3 % (3.3-12.3); RBC Red Blood Cell Count 2.78 M/uL (4.33-5.43)
[2018-12-04] MEDS ORDERED: ONDANSETRON 4 MG/2 ML VIAL IV PRN (21:41)
[2018-12-04] MEDS: NA CHLORIDE 0.9% 1,000 ML IV SCH (22:50)
[2018-12-04 23:34] VITALS: BMI 22.4
[2018-12-05] MEDS: INSULIN -REGULAR HUMAN 50 UNIT/0.5 ML ML SQ SCH ×3 (06:00→12:00)
[2018-12-05 06:08] LABS: Absolute Lymphocytes (CBC) 1.2 K/uL (0.7-4.9); Absolute Neutrophil 5.7 K/uL (1.8-8.0); Basophils % 0.7 % (0-1.3); Eosinophils % 2.2 % (0-4.4); Hematocrit 25.1 % (39.6-49.0); Lymphocytes % 14.6 % (15.3-44.8); MPV 8.2 fL (7.6-11.3); Monocytes % 11.7 % (3.3-12.3); RBC Red Blood Cell Count 2.76 M/uL (4.33-5.43)
[2018-12-05 06:25] LABS: Potassium 4.8 mmol/L (3.5-5.1)
[2018-12-05] MEDS ORDERED: D50W 25 GM/50 ML SYRINGE IV PRN (07:32)
[2018-12-05] MEDS: NA CHLORIDE 0.9% 1,000 ML IV SCH (07:41)
[2018-12-05] MEDS ORDERED: D5 0.9 NS 1,000 ML IV SCH (08:00)
[2018-12-05] MEDS ORDERED: ENOXAPARIN 40 MG/0.4 ML SQ SCH (09:00)
[2018-12-05 12:17] VITALS: O2SAT 99
--- NOTE | 2018-12-05 13:10 | P.PN ---
Subjective Date of Service: 12/05/18 Primary Care Provider: [place] Chief Complaint: jejunostomy malfunction Subjective: Other (Patient stable this time. No complaints of pain) Physical Examination - Vital Signs Temperature: 98.0 F Blood Pressure: 127/60 Pulse: 89 Respirations: 18 Pulse Ox (%): 99 - Physical Exam General: Alert HEENT: Atraumatic Neck: Supple Respiratory: Clear to auscultation bilaterally, Normal air movement Cardiovascular: Normal pulses, Regular rate/rhythm Gastrointestinal: Normal bowel sounds, Other (J-tube in place chronic wound to the abdomen) Musculoskeletal: Contractures Neurological: Dementia - Studies Laboratory Data (last 24 hrs) 12/04/18 20:20: WBC 9.4, Hgb 8.2 L, Hct 25.3 L, Plt Count 284 Medications List Reviewed: Yes Assessment & Plan Discharge Plan: Skilled Nursing Plan to discharge in: Unknown Physician Review Additional Text: Impression: Malfunctioning J-tube with complicated history of G-tube and J-tube along with chronic wound to the abdomen Diabetes mellitus type 2 Hypertension History of CVA Chronic contractures Dementia Plan: Case discussed at length with surgery. Multiple attempts of unclotting J-tube have been made without success. Options reviewed by surgery. Surgery would be very difficult and further complicate his current situation. G-tube is also not an option due to history of ulcers. This also increases risk for aspiration pneumonia. Further options include chronic TPN or hospice. Plan of care discussed with sister who makes medical decisions. Options discussed in detail. Sister understands. Will recommend to reassess swallowing with speech evaluation and modified barium swallow. If high risk for aspiration then the Chronic TPN or hospice would be options. At that point family will need to decide as chronic TPN does carry risk of clot and infection. It also would be difficult for him to continue at the snf. Best option likely hospice. Sister wants to have him evaluated for his swallowing. She will make a decision thereafter. Await findings. Continue with current medications. Time Spent Managing Pts Care (In Minutes): 55
--- NOTE | 2018-12-05 14:36 | RAD REPORT ---
EXAM DESCRIPTION: RAD - Barium Swallow Modified - 12/05/2018 2:28 pm CLINICAL HISTORY: dysphagia COMPARISON: Abdomen Pelvis W Contrast dated 11/28/2018 TECHNIQUE: The patient was given liquid, semi-solid and solid forms of barium. Lateral view fluorosc opic imaging was performed in conjunction with speech pathology service. FINDINGS: Laryngeal penetration: Cleared with nectar Prolonged oral phase with semi solid. Patient chewed for ~20 sec, had difficulty moving bolus relief map modeler iorly and intiating a swallow with small bolus size, liquid wash helped. Total fluoroscopy time: 2 minutes and 27 seconds
--- NOTE | 2018-12-05 15:01 | P.DS ---
Admission Date: 12/04/18 Discharge Date: 12/05/18 Primary Care Provider: longterm Disposition: TRANSFER TO [facility] Discharge Condition: GOOD Reason for Admission: jejunostomy malfunction Consultations: Surgery-Dr. Soto Procedures: Modified barium swallow: COMPARISON: Abdomen Pelvis W Contrast dated 11/28/2018 TECHNIQUE: The patient was given liquid, semi-solid and solid forms of barium. Lateral view fluoroscopic imaging was performed in conjunction with speech pathology service. FINDINGS: Laryngeal penetration: Cleared with nectar Prolonged oral phase with semi solid. Patient chewed for ~20 sec, had difficulty moving bolus posteriorly and intiating a swallow with small bolus size, liquid wash helped. 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 J tube was malfunctioning. Patient was sent to the ER for further evaluation. The patient was assessed further. Unable to clogged J-tube. Patient was admitted for surgical evaluation. Hospital Course: Patient presented with malfunctioning J-tube. Multiple attempts to unclog was unsuccessful. Surgery evaluated the patient. Surgery explained options of care to family and myself. Surgical intervention would be very difficult and further complicate his current situation. Patient not able to get G-tube due to his history of ulcers. Therefore patient was reassessed by speech to assess his swallowing. This was successful. Patient able tolerate pureed diet. Patient will return to the [facility] on a pureed thin liquid diet. Patient to continue with speech recommendations. Patient to continue with speech therapy. Aspiration precaution to continue. No further feeding through J-tube at this time. J tube is to remain in place. Recommend to follow up with surgery in 1 week to further discuss the possibility of removal. This was address with family. Family agrees with current plan of care. Patient with diabetes. Will recommend to discontinue basal insulin-Levemir. Recommend to continue with insulin sliding scale only due to his dietary changes. Recommend to maintain blood sugars less 140 fasting and less than 200 after meals. Further adjustment can be done by [facility] physician. 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 Patient will continue with his other medications. Further adjustment in medication can be done by [facility] physician. Patient is bed bound. In light of his chronic medical conditions and current status, will recommend [facility] physician to further reassess advanced directives. Patient may benefit with hospice in the future if his condition declines. Vital Signs/Physical Exam: Temp Pulse Resp BP Pulse Ox 98.0 F 89 18 127/60 99 12/05/18 13:09 12/05/18 13:09 12/05/18 13:09 12/05/18 13:12/05/18 13:09 General: Alert, In no apparent distress HEENT: Atraumatic Neck: Supple Respiratory: Clear to auscultation bilaterally, Normal air movement Cardiovascular: Normal pulses, Regular rate/rhythm Gastrointestinal: Other (j-tube in place, chronic wound) Musculoskeletal: Contractures Neurological: Dementia Laboratory Data at Discharge: WBC 8.1 K/uL (4.3-10.9) 12/05/18 05:35 Hgb 8.3 g/dL (13.6-17.9) L 12/05/18 05:35 Hct 25.1 % (39.6-49.0) L 12/05/18 05:35 Plt Count 276 K/uL (152-406) 12/05/18 05:35 Sodium 140 mmol/L (136-145) 12/05/18 05:35 Potassium 4.8 mmol/L (3.5-5.1) 12/05/18 05:35 BUN 28 mg/dL (7-18) H 12/05/18 05:35 Creatinine 1.50 mg/dL (0.55-1.3) H 12/05/18 05:35 Glucose 50 mg/dL (74-106) L 12/05/18 05:35 Home Medications: Amlodipine [Norvasc*] 5 mg FT DAILY 11/04/18 Aspirin Chewable [Aspirin Chewable*] 81 mg FT DAILY 11/04/18 Atorvastatin Calcium [Lipitor] 80 mg FT BEDTIME 11/04/18 Carvedilol [Coreg*] 25 mg FT BEDTIME 11/04/18 Clopidogrel Bisulfate [Plavix*] 75 mg FT DAILY 11/04/18 Codeine/APAP [Tylenol #3*] 1 tab FT Q6HP PRN 11/04/18 Cyclobenzaprine HCl 10 mg FT Q8HP PRN 11/04/18 Docusate Sodium 10 ml FT DAILY 11/04/18 Famotidine [Pepcid] 40 mg FT BEDTIME 11/04/18 Hydralazine [Apresoline*] 25 mg FT TID 11/04/18 Insulin Aspart [Novolog] See Protocol SQ BID 11/04/18 Multivit &Minerals/Ferrous Fum [Multivitamin Liquid] 5 ml FT DAILY 11/04/18 PARoxetine HCl [Paxil*] 10 mg FT DAILY 11/04/18 Tramadol HCl [Ultram] 50 mg FT Q6HP PRN 11/04/18 Calcium Alginate [Mir] 1 each TP DAILY 12/04/18 Patient Discharge Instructions: 1. Patient to return to [facility]. 2. Patient with malfunctioning J-tube. Swallow evaluation done. Patient tolerated swallowing. Speech recommends pureed diet with thin liquids. Further speech recommendations to follow. Continue with speech therapy at the [facility]. J-tube to remain in place. Recommend to follow up with surgery in 1 week to further discuss the possibility of removal. 3. Patient with diabetes. Will discontinue basal insulin. Will recommend to continue only with sliding scale as the patient will be on a pureed diet. This can be further adjusted by [facility]. 4. 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 Patient will continue his other medications. 5. Will recommend [facility] medical records field technician to further rediscuss advanced directives and the possibility of hospice in the future. Diet: Pureed diet with thin liquids, continue speech recommendation Activity: Bedrest Time spent managing pt's care (in minutes): 55
[2018-12-05] MEDS ORDERED: GLUCAGON 1 MG/VIAL IM PRN (16:03)
[2018-12-05] MEDS ORDERED: INSULIN -REGULAR HUMAN 50 UNIT/0.5 ML ML SQ SCH (16:30)
[2018-12-05 17:29] VITALS: BP 125/59; TEMP 97.4
== END 2018-12-05 17:30 ==
LOC: ER 17:26 → ERHOLD 20:32 → 2ND 21:17
PROVIDERS: ADMIT Internal Medicine; ATTEND Family Medicine
DX: K94.13 Enterostomy malfunction (principal); R53.2 Functional quadriplegia; E11.9 Type 2 diabetes mellitus without complications; E78.5 Hyperlipidemia, unspecified; I10 Essential (primary) hypertension; I69.351 Hemiplegia and hemiparesis following cerebral infarction affecting right dominant side; K31.89 Other diseases of stomach and duodenum; K21.9 Gastro-esophageal reflux disease without esophagitis; F01.50 Vascular dementia, unspecified severity, without behavioral disturbance, psychotic disturbance, mood disturbance, and anxiety; F32.9 Major depressive disorder, single episode, unspecified; Z79.4 Long term (current) use of insulin; Z79.02 Long term (current) use of antithrombotics/antiplatelets; Z79.82 Long term (current) use of aspirin; Z79.899 Other long term (current) drug therapy; Z87.2 Personal history of diseases of the skin and subcutaneous tissue; Z86.14 Personal history of Methicillin resistant Staphylococcus aureus infection; Z87.440 Personal history of urinary (tract) infections
CPT/HCPCS: 85025 ×2; 80048 ×2; 36415; 82962 ×5; 74230; 92611; 99285; J1650; J7030; G0378 ×2

== ENCOUNTER 2018-12-14 14:44 | Emergency (ER) | payer OTHER ==
--- OUTSIDE RECORDS SUMMARY | 2018-12-14 14:48 | XMS REPORT | Clinical Summary ---
:1940 Author Organization [facility] Address [address] [place] [address] Care Team Providers Name Role Phone Cielo [...] Date Type Specialty Care Team Description 08/10/2018 [facility] Internal Tirukkov[place]uri, Anemia, unspecified - Encounter Medicine MD Kiersten type 08/11/2018 Silas Joyner III, MD 07/13/2018 Surgery Gastroenterology Malik Gonsales UPPER ENDOSCOPY MD Juan Manuel 07/13/2018 Anesthesia Event Gastroenterology Mita Banuelos MD 07/11/2018 [facility] Internal [facility], [place] Gastrointestinal hemorrhage associated with gastrojejunal ulcer; - Encounter Medicine MD Ama Abdominal wall cellulitis; 07/15/2018 Tazn, History of CVA with residual deficit; [place] Severe protein-calorie malnutrition (HCC); MD Daniel Sacral decubitus ulcer, stage III (HCC); Donovan Ledezmaison Blood loss anemia; MD Pippa Gastrointestinal hemorrhage, unspecified gastrointestinal hemorrhage type after 12/13/2017 Social History Tobacco Use Types Packs/Day Years Used Date Unknown If Ever Smoked Sex Assigned at Date Recorded Not on file Job Start Date Occupation Industry Not on file Not on file Not on file Travel History Travel Start Travel End No recent travel history available. Last Filed Vital Signs Vital Sign Reading Time Taken Blood Pressure 144/66 08/11/2018 3:08 PM QUALITY SYSTEM MANAGER Pulse 92 08/11/2018 3:08 PM QUALITY SYSTEM MANAGER Temperature 35.6 C (96 F) 08/11/2018 3:08 PM QUALITY SYSTEM MANAGER Respiratory Rate 18 08/11/2018 3:08 PM QUALITY SYSTEM MANAGER Oxygen Saturation 95% 08/11/2018 3:08 PM QUALITY SYSTEM MANAGER Inhaled Oxygen Concentration 21% 07/14/2018 3:52 PM QUALITY SYSTEM MANAGER Weight 60.8 kg (134 lb 0.6 oz) 08/10/2018 5:00 PM QUALITY SYSTEM MANAGER Height - - Body Mass Index - - Plan of Treatment Not on file Procedures Procedure Name Priority Date/Time Associated Comments Diagnosis RHYTHM STRIP - SCAN 10/15/2018 9:20 AM CDT HEMOGLOBIN AND Routine 08/11/2018 12:31 Results for this HEMATOCRIT PM QUALITY SYSTEM MANAGER procedure are in the results section. POCT-GLUCOSE METER Routine 08/11/2018 11:51 Results for this AM QUALITY SYSTEM MANAGER procedure are in the results section. POCT-GLUCOSE METER Routine 08/11/2018 6:16 Results for this AM QUALITY SYSTEM MANAGER procedure are in the results section. CBC W/PLT COUNT & AUTO Routine 08/11/2018 1:57 Results for this DIFFERENTIAL AM QUALITY SYSTEM MANAGER procedure are in the results section. CBC W/PLT COUNT & AUTO Routine 08/11/2018 1:57 Results for this DIFFERENTIAL AM QUALITY SYSTEM MANAGER procedure are in the results section. PHOSPHORUS Routine 08/11/2018 1:57 Results for this AM QUALITY SYSTEM MANAGER procedure are in the results section. MAGNESIUM Routine 08/11/2018 1:57 Results for this AM QUALITY SYSTEM MANAGER procedure are in the results section. CALCIUM, IONIZED Routine 08/11/2018 1:57 Results for this AM QUALITY SYSTEM MANAGER procedure are in the results section. HEMOGLOBIN A1C Routine 08/11/2018 1:57 Results for this AM QUALITY SYSTEM MANAGER procedure are in the results section. BASIC METABOLIC PANEL Routine 08/11/2018 1:57 Results for this (7) AM QUALITY SYSTEM MANAGER procedure are in the results section. HEMOGLOBIN AND Routine 08/11/2018 1:57 Results for this HEMATOCRIT AM QUALITY SYSTEM MANAGER procedure are in the results section. POCT-GLUCOSE METER Routine 08/11/2018 1:35 Results for this AM QUALITY SYSTEM MANAGER procedure are in the results section. POCT-GLUCOSE METER Routine 08/10/2018 10:54 Results for this PM QUALITY SYSTEM MANAGER procedure are in the results section. CBC W/PLT COUNT & AUTO STAT 08/10/2018 6:20 Results for this DIFFERENTIAL PM QUALITY SYSTEM MANAGER procedure are in the results section. HEMOGLOBIN AND Routine 08/10/2018 6:20 Results for this HEMATOCRIT PM QUALITY SYSTEM MANAGER procedure are in the results section. HEMOGLOBIN A1C AP Routine 08/10/2018 6:20 Results for this PM QUALITY SYSTEM MANAGER procedure are in the results section. PHOSPHORUS STAT 08/10/2018 6:20 Results for this PM QUALITY SYSTEM MANAGER procedure are in the results section. MAGNESIUM STAT 08/10/2018 6:20 Results for this PM QUALITY SYSTEM MANAGER procedure are in the results section. COMPREHENSIVE STAT 08/10/2018 6:20 Results for this METABOLIC PANEL PM QUALITY SYSTEM MANAGER procedure are in the results section. CBC W/PLT COUNT & AUTO STAT 08/10/2018 6:20 Results for this DIFFERENTIAL PM QUALITY SYSTEM MANAGER procedure are in the results section. POCT-GLUCOSE METER Routine 08/10/2018 4:38 Results for this PM QUALITY SYSTEM MANAGER procedure are in the results section. RHYTHM STRIP - SCAN 08/02/2018 8:20 AM QUALITY SYSTEM MANAGER TRANSFUSION SERVICE 07/16/2018 6:01 REPORT - SCAN PM QUALITY SYSTEM MANAGER PREPARE LEUKO-REDUCED Routine 07/15/2018 11:54 Results for this RBC PM QUALITY SYSTEM MANAGER procedure are in the results section. TRANSFUSION SERVICE 07/15/2018 6:01 REPORT - SCAN PM QUALITY SYSTEM MANAGER POCT-GLUCOSE METER Routine 07/15/2018 8:18 Results for this AM QUALITY SYSTEM MANAGER procedure are in the results section. CBC W/PLT COUNT & AUTO Routine 07/15/2018 7:11 Results for this DIFFERENTIAL AM QUALITY SYSTEM MANAGER procedure are in the results section. BASIC METABOLIC PANEL Routine 07/15/2018 7:11 Results for this (7) AM QUALITY SYSTEM MANAGER procedure are in the results section. HAPTOGLOBIN Routine 07/15/2018 7:11 Results for this AM QUALITY SYSTEM MANAGER procedure are in the results section. CBC W/PLT COUNT & AUTO Routine 07/15/2018 7:11 Results for this DIFFERENTIAL AM QUALITY SYSTEM MANAGER procedure are in the results section. POCT-GLUCOSE METER Routine 07/15/2018 6:37 Results for this AM QUALITY SYSTEM MANAGER procedure are in the results section. POCT-GLUCOSE METER Routine 07/14/2018 11:36 Results for this PM QUALITY SYSTEM MANAGER procedure are in the results section. POCT-GLUCOSE METER Routine 07/14/2018 5:23 Results for this PM QUALITY SYSTEM MANAGER procedure are in the results section. BASIC METABOLIC PANEL Routine 07/14/2018 3:47 Results for this (7) PM QUALITY SYSTEM MANAGER procedure are in the results section. PERIPHERAL BLOOD SMEAR AP Routine 07/14/2018 3:47 Results for this - PATHOLOGIST REVIEW PM QUALITY SYSTEM MANAGER procedure are in the results section. RETICULOCYTE COUNT Routine 07/14/2018 3:47 Results for this PM QUALITY SYSTEM MANAGER procedure are in the results section. CBC W/PLT COUNT & AUTO Routine 07/14/2018 1:03 Results for this DIFFERENTIAL PM QUALITY SYSTEM MANAGER procedure are in the results section. HEPATIC FUNCTION PANEL Routine 07/14/2018 1:03 Results for this PM QUALITY SYSTEM MANAGER procedure are in the results section. CBC W/PLT COUNT & AUTO Routine 07/14/2018 1:03 Results for this DIFFERENTIAL PM QUALITY SYSTEM MANAGER procedure are in the results section. LACTATE DEHYDROGENASE Routine 07/14/2018 1:03 Results for this (LDH) PM QUALITY SYSTEM MANAGER procedure are in the results section. TRANSFUSE Routine 07/14/2018 12:32 LEUKO-REDUCED RED PM QUALITY SYSTEM MANAGER BLOOD CELLS POCT-GLUCOSE METER Routine 07/14/2018 12:01 Results for this PM QUALITY SYSTEM MANAGER procedure are in the results section. VANCOMYCIN LEVEL, Routine 07/14/2018 8:37 Results for this RANDOM AM QUALITY SYSTEM MANAGER procedure are in the results section. POCT-GLUCOSE METER Routine 07/14/2018 6:45 Results for this AM QUALITY SYSTEM MANAGER procedure are in the results section. CBC W/PLT COUNT & AUTO Routine 07/14/2018 6:10 Results for this DIFFERENTIAL AM QUALITY SYSTEM MANAGER procedure are in the results section. MAGNESIUM Routine 07/14/2018 6:10 Results for this AM QUALITY SYSTEM MANAGER procedure are in the results section. BASIC METABOLIC PANEL Routine 07/14/2018 6:10 Results for this (7) AM QUALITY SYSTEM MANAGER procedure are in the results section. CBC W/PLT COUNT & AUTO Routine 07/14/2018 6:10 Results for this DIFFERENTIAL AM QUALITY SYSTEM MANAGER procedure are in the results section. POCT-GLUCOSE METER Routine 07/14/2018 1:16 Results for this AM QUALITY SYSTEM MANAGER procedure are in the results section. VANCOMYCIN LEVEL, Timed 07/13/2018 9:11 Results for this TROUGH PM QUALITY SYSTEM MANAGER procedure are in the results section. TRANSFUSION SERVICE 07/13/2018 6:03 REPORT - SCAN PM QUALITY SYSTEM MANAGER POCT-GLUCOSE METER Routine 07/13/2018 5:42 Results for this PM QUALITY SYSTEM MANAGER procedure are in the results section. POCT-GLUCOSE METER Routine 07/13/2018 3:39 Results for this PM QUALITY SYSTEM MANAGER procedure are in the results section. REPORT OF PROCEDURE - 07/13/2018 3:20 ENDOSCOPY URL PM QUALITY SYSTEM MANAGER UPPER ENDOSCOPY 07/13/2018 3:00 Melena PM QUALITY SYSTEM MANAGER POCT-GLUCOSE METER Routine 07/13/2018 11:58 Results for this AM QUALITY SYSTEM MANAGER procedure are in the results section. (CELLAVISION MANUAL Routine 07/13/2018 5:54 Results for this DIFF) AM QUALITY SYSTEM MANAGER procedure are in the results section. CBC W/PLT COUNT & AUTO Routine 07/13/2018 5:54 Results for this DIFFERENTIAL AM QUALITY SYSTEM MANAGER procedure are in the results section. MAGNESIUM Routine 07/13/2018 5:54 Results for this AM QUALITY SYSTEM MANAGER procedure are in the results section. BASIC METABOLIC PANEL Routine 07/13/2018 5:54 Results for this (7) AM QUALITY SYSTEM MANAGER procedure are in the results section. CBC W/PLT COUNT & AUTO Routine 07/13/2018 5:54 Results for this DIFFERENTIAL AM QUALITY SYSTEM MANAGER procedure are in the results section. POCT-GLUCOSE METER Routine 07/13/2018 5:49 Results for this AM QUALITY SYSTEM MANAGER procedure are in the results section. POCT-GLUCOSE METER Routine 07/13/2018 12:11 Results for this AM QUALITY SYSTEM MANAGER procedure are in the results section. POCT-GLUCOSE METER Routine 07/12/2018 6:40 Results for this PM QUALITY SYSTEM MANAGER procedure are in the results section. POCT-GLUCOSE METER Routine 07/12/2018 12:43 Results for this PM QUALITY SYSTEM MANAGER procedure are in the results section. ECG 12-LEAD Routine 07/12/2018 9:22 Results for this AM QUALITY SYSTEM MANAGER procedure are in the results section. POCT-GLUCOSE METER Routine 07/12/2018 7:37 Results for this AM QUALITY SYSTEM MANAGER procedure are in the results section. (CELLAVISION MANUAL Routine 07/12/2018 6:21 Results for this DIFF) AM QUALITY SYSTEM MANAGER procedure are in the results section. CBC W/PLT COUNT & AUTO Routine 07/12/2018 6:21 Results for this DIFFERENTIAL AM QUALITY SYSTEM MANAGER procedure are in the results section. TYPE AND SCREEN, Routine 07/12/2018 6:21 Results for this AUTOMATED AM QUALITY SYSTEM MANAGER procedure are in the results section. MAGNESIUM Routine 07/12/2018 6:21 Results for this AM QUALITY SYSTEM MANAGER procedure are in the results section. BASIC METABOLIC PANEL Routine 07/12/2018 6:21 Results for this (7) AM QUALITY SYSTEM MANAGER procedure are in the results section. CBC W/PLT COUNT & AUTO Routine 07/12/2018 6:21 Results for this DIFFERENTIAL AM QUALITY SYSTEM MANAGER procedure are in the results section. after 12/13/2017 Results RHYTHM STRIP - SCAN (10/15/2018 9:20 AM CDT)Only the most recent of2 resultswithin the time period is included. Narrative Performed At Hemoglobin and hematocrit (08/11/2018 12:31 PM QUALITY SYSTEM MANAGER)Only the most recent of3 resultswithin the time period is included. Hemoglobin 9.2 (L) 13.7 - 17.5 GM/DL [facility] Hematocrit 30.1 (L) 40.1 - 51.0 % [facility] Specimen Blood Performing Organization Address City/[facility] Phone Number [address] [address] [place] POC-Glucose meter (08/11/2018 11:51 AM QUALITY SYSTEM MANAGER)Only the most recent of20 resultswithin the time period is included. POC-Glucose Meter 98Comment: TESTED AT 70 - 110 mg/dL [address] [address] Specimen Blood Performing Organization Address City/[facility] Phone Number [address] [address] [place] Calcium, Ionized (08/11/2018 1:57 AM QUALITY SYSTEM MANAGER) Calcium, Ion 1.09 (L) 1.12 - 1.27 mmol/L [facility] pH, Blood 7.44 [facility] Specimen Blood Performing Organization Address City/[facility] Hospitalcow[facility] Phone Number [address] [address] [place] CBC with platelet count + automated diff (08/11/2018 1:57 AM QUALITY SYSTEM MANAGER)Only the most recent of7 resultswithin the time period is included. WBC 10.1 3.5 - 10.5 K/L [facility] RBC 3.54 (L) 4.63 - 6.08 M/L [facility] Hemoglobin 9.8 (L) 13.7 - 17.5 GM/DL [facility] Hematocrit 31.9 (L) 40.1 - 51.0 % [facility] MCV 90.1 79.0 - 92.2 fL [facility] MCH 27.7 25.7 - 32.2 pg [facility] MCHC 30.7 (L) 32.3 - 36.5 GM/DL [facility] RDW 17.7 (H) 11.6 - 14.4 % [facility] Platelets 209 150 - 450 K/CU MM [facility] MPV 9.9 9.4 - 12.4 fL [facility] nRBC 0 0 - 0 /100 WBC [facility] % Neutros 77 % [facility] % Lymphs 11 % [facility] % Monos 10 % [facility] % Eos 2 % [facility] % Baso 0 % [facility] # Neutros 7.78 (H) 1.78 - 5.38 K/L [facility] # Lymphs 1.07 (L) 1.32 - 3.57 K/L [facility] # Monos 1.04 (H) 0.30 - 0.82 K/L [facility] # Eos 0.17 0.04 - 0.54 K/L [facility] # Baso 0.02 0.01 - 0.08 K/L [facility] Immature Granulocytes-Relative 0 0 - 1 % [facility] Specimen Blood Performing Organization Address City/[facility]/Zipcode Phone Number [address] [address] [place] Phosphorus (08/11/2018 1:57 AM QUALITY SYSTEM MANAGER)Only the most recent of2 resultswithin the time period is included. Phosphorus 3.2 2.3 - 4.7 mg/dL [facility] Specimen Blood Performing Organization Address City/[facility]/Zipcode Phone Number [address] [address] [place] Magnesium (08/11/2018 1:57 AM QUALITY SYSTEM MANAGER)Only the most recent of5 resultswithin the time period is included. Magnesium 1.8 1.6 - 2.6 mg/dL [facility] Specimen Blood Performing Organization Address City/State/Zipcode Phone Number [address] [address] [place] Hemoglobin A1c (08/11/2018 1:57 AM QUALITY SYSTEM MANAGER)Only the most recent of2 resultswithin the time period is included. Hemoglobin A1C 6.4 (H) 4.3 - 6.1 % [facility] Specimen Blood Performing Organization Address [facility] Hospitalcode Phone Number [address] [address] [place] Basic metabolic panel (08/11/2018 1:57 AM QUALITY SYSTEM MANAGER)Only the most recent of6 resultswithin the time period is included. Sodium 134 (L) 136 - 145 meq/L [facility] Potassium 4.2 3.5 - 5.1 meq/L [facility] Chloride 102 98 - 107 meq/L [facility] CO2 27 22 - 29 meq/L [facility] BUN 24 (H) 7 - 21 mg/dL [facility] Creatinine 1.31 (H) 0.57 - 1.25 mg/dL [facility] Glucose 77 70 - 105 mg/dL [facility] Calcium 8.6 8.4 - 10.2 mg/dL [facility] EGFR 64Comment: ESTIMATED GFR IS mL/min/1.73 sq m [facility] NOT ACCURATE CREATININE [facility] CLEARANCE IN PREDICTING GLOMERULAR FILTRATION RATE. ESTIMATED GFR IS NOT APPLICABLE FOR DIALYSIS PATIENTS. Specimen Blood Performing Organization Address City/[facility]/Zipcode Phone Number [address] [address] [place] Comprehensive metabolic panel (08/10/2018 6:20 PM QUALITY SYSTEM MANAGER) Protein, Total 7.4 6.0 - 8.3 gm/dL [facility] Albumin 2.1 (L) 3.5 - 5.0 g/dL [facility] Alkaline Phosphatase 142 40 - 150 U/L [facility] Total Bilirubin 0.2 0.2 - 1.2 mg/dL [facility] Sodium 136 136 - 145 meq/L [facility] Potassium 4.0 3.5 - 5.1 meq/L [facility] Chloride 102 98 - 107 meq/L [facility] CO2 29 22 - 29 meq/L [facility] BUN 27 (H) 7 - 21 mg/dL [facility] Creatinine 1.33 (H) 0.57 - 1.25 mg/dL [facility] Glucose 51 (L) 70 - 105 mg/dL [facility] Calcium 8.6 8.4 - 10.2 mg/dL [facility] AST 37 (H) 5 - 34 U/L [facility] ALT 27 6 - 55 U/L [facility] EGFR 63Comment: ESTIMATED GFR mL/min/1.73 sq m [facility] IS NOT ACCURATE [facility] CREATININE CLEARANCE IN PREDICTING GLOMERULAR FILTRATION RATE. ESTIMATED GFR IS NOT APPLICABLE FOR DIALYSIS PATIENTS. Specimen Blood Performing Organization Address City/State/Zipcode Phone Number [facility] [address] [place] [address] [phone] [place] TRANSFUSION SERVICE REPORT - SCAN (07/16/2018 6:01 PM QUALITY SYSTEM MANAGER)Only the most recent of3 resultswithin the time period is included. Narrative Performed At Prepare Leuko-Red RBC (07/15/2018 11:54 PM QUALITY SYSTEM MANAGER) CROSSMATCH COMPATIBLE [facility] TX Unit ABO O Pos [facility] TX UNIT NUMBER [id number] [place] [place] Status TRANSFUSED [facility] [place] Blood Bank Product RED BLOOD CELLS [facility] [place] PRODUCT CODE [id number] [place] [place] Specimen Other Performing Organization Address [facility] Phone Number [employer] [place] Haptoglobin (07/15/2018 7:11 AM QUALITY SYSTEM MANAGER) Haptoglobin 185 14 - 258 mg/dL [facility] Specimen Blood Performing Organization Address [facility] Phone Number [address] [address] [phone] [place] Peripheral Blood Smear - Path Review (07/14/2018 3:47 PM QUALITY SYSTEM MANAGER) RBC Morphology Polychromasia [facility] Anisocytosis [facility] Poikilocytosis WBC Morphology Toxic Granulation [facility] Pathologist Review Cell counts confirmed. [facility] Pathologist: Rafaela Dowell M.D. [facility] (electronic signature) [facility] Specimen Blood Performing Organization Address [facility] Phone Number [address] [address] [place] Reticulocyte count (07/14/2018 3:47 PM QUALITY SYSTEM MANAGER) % Retic 2.3 (H) 0.5 - 1.8 % [facility] Specimen Blood Performing Organization Address [facility] Phone Number [address] [address] [phone] [place] Lactate dehydrogenase (LDH) (07/14/2018 1:03 PM QUALITY SYSTEM MANAGER) LDH 338 (H)Comment: Specimen 125 - 220 U/L [facility] slightly hemolyzed [facility] Specimen Blood Performing Organization Address [facility] Phone Number [address] [address] [phone] [place] Hepatic function panel (07/14/2018 1:03 PM QUALITY SYSTEM MANAGER) Protein, Total 4.8 (L)Comment: Specimen 6.0 - 8.3 gm/dL [facility] hemolyzed [facility] Albumin 1.2 (L)Comment: Specimen 3.5 - 5.0 g/dL [facility] hemolyzed [facility] Total Bilirubin 0.2Comment: Specimen 0.2 - 1.2 mg/dL [facility] Bilirubin, Direct 0.1Comment: Specimen 0.1 - 0.5 mg/dL [facility] hemolyzed [facility] Alkaline Phosphatase 74 40 - 150 U/L [facility] AST 38 (H)Comment: Specimen 5 - 34 U/L [facility] hemolyzed [facility] ALT 19Comment: Specimen 6 - 55 U/L [facility] Specimen Blood Performing Organization Address [facility] Phone Number [address] [address] [place] Transfuse Leuko-Red RBC (07/14/2018 12:32 PM QUALITY SYSTEM MANAGER)Only the most recent of2 resultswithin the time period is included.Vancomycin level, random (07/14/2018 8:37 AM QUALITY SYSTEM MANAGER) Vancomycin Rm 22.6 ug/mL [facility] Specimen Blood Narrative Performed At Reference Range: No Normals [facility] Performing Organization Address [facility] Phone Number [address] [address] [place] Vancomycin level, trough (07/13/2018 9:11 PM QUALITY SYSTEM MANAGER) Vancomycin Tr 26.3 (H) 10.0 - 20.0 ug/mL [facility] Specimen Blood Narrative Performed At WAIT FOR LEVEL TO RETURN BEFORE GIVING DOSE. [facility] If vancomycin trough level > 20, HOLD dose and contact MD and pharmacist. Performing Organization Address City/[facility]/Zipcode Phone Number [facility] [address] [place] [address] CENTER REPORT OF PROCEDURE - ENDOSCOPY URL (07/13/2018 3:20 PM QUALITY SYSTEM MANAGER) Narrative Performed At Manual Differential (07/13/2018 5:54 AM QUALITY SYSTEM MANAGER)Only the most recent of2 resultswithin the time period is included. % Neutros 89 % [facility] % Lymphs 5 % [facility] % Monos 5 % [facility] % Atypical Lymphs 1 (H) 0 - 0 % [facility] # Neutros 11.21 (H) 1.78 - 5.38 K/ul [facility] # Lymphs 0.63 (L) 1.32 - 3.57 K/ul [facility] # Monos 0.63 0.30 - 0.82 K/uL [facility] # Atypical Lymphs 0.13 (H) 0.00 - 0.00 K/uL [facility] Total Counted 100 [facility] Platelet Morphology Normal [facility] Smudge Cells Present [facility] Anisocytosis 1+ few [facility] Poikilocytes 2+ moderate [facility] [place] Cells 1+ few [facility] Platelet Conc Adequate [facility] Specimen Blood Narrative Performed At Received comment: [facility] User comments: Slide comments: Performing Organization Address City/State/Zipcode Phone Number [facility] [address] [place] [address] [phone] [place] ECG 12 lead (07/12/2018 9:22 AM QUALITY SYSTEM MANAGER) Specimen Narrative Performed At Ventricular Rate 100 BPM GE MUSE Atrial Rate 100 BPM P-R Interval 148 ms QRS Duration 90 ms Q-T Interval 344 ms QTC Calculation(Bazett) 443 ms P [place] 59 degrees R [place] -12 degrees T [place] 9 degrees Sinus rhythm with premature artial complexes Inferior infarct , age undetermined Abnormal ECG No previous ECGs available Confirmed by MD MARYJANE, IHAB ([id number]) on 07/13/2018 7:29:33 AM Procedure Note Interface, External Ris In - 07/13/2018 7:29 AM QUALITY SYSTEM MANAGER Ventricular Rate 100 BPM Atrial Rate 100 BPM P-R Interval 148 ms QRS Duration 90 ms Q-T Interval 344 ms QTC Calculation([place]az[place]) 443 ms P [place] 59 degrees R [place] -12 degrees T [place] 9 degrees Sinus rhythm with premature artial complexes Inferior infarct , age undetermined Abnormal ECG No previous ECGs available Confirmed by MD MARYJANE, IHAB ([id number]) on 07/13/2018 7:29:33 AM Performing Organization Address City/State/Zipcode Phone Number GE MUSE Type and screen, automated (07/12/2018 6:21 AM QUALITY SYSTEM MANAGER) ABO/RH AUTOMATED (BEAKER) O POSITIVE [facility] Ab Scrn NEGATIVE [facility] Specimen Blood Performing Organization Address City/State/Zipcode Phone Number [facility] [address] [place] [address] after 12/13/2017 Insurance Payer Benefit Plan / Group Subscriber ID Type Phone Address MEDICARE MEDICARE A B xxxxxxxxxxx Medicare MEDICAID MEDICAID [facility] xxxxxxxxx Medicaid Advance Directives For more information, please contact:[facility] [place], [place] [phone] Code Status Date Activated Date Inactivated Comments Full Code 08/10/2018 8:12 PM This code status was determined by: Patient Full Code 07/11/2018 10:34 PM 08/10/2018 4:09 PM This code status was determined by: Patient
--- OUTSIDE RECORDS SUMMARY | 2018-12-14 14:49 | XMS REPORT ---
:1940 [facility] Address [address] [place] [id number] Care Team Providers Name Role Phone RODNEY [...] Reference Range Comments HEMOGLOBIN A1C (BEAKER) (test lxuy=030) 6.4 % 4.3-6.1 HEMOGLOBIN [id number] 13:06:00 Test Item Value Reference Range Comments HEMOGLOBIN A1C (BEAKER) (test etxg=378) 6.3 % 4.3-6.1 HEMOGLOBIN AND [id number] 12:45:00 Test Item Value Reference Range Comments HEMOGLOBIN (BEAKER) (test dcnz=965) 9.2 GM/DL 13.7-17.5 HEMATOCRIT (BEAKER) (test oofv=048) 30.1 % 40.1-51.0 POCT-GLUCOSE [id number] 12:00:00 Test Item Value Reference Range Comments POC-GLUCOSE METER (BEAKER) 98 mg/dL 70-110 TESTED AT [place] [id number] [facility] (test ehpb=8547) [facility] [address] POCT-GLUCOSE [id number] 06:19:00 Test Item Value Reference Range Comments POC-GLUCOSE METER (BEAKER) 120 mg/dL 70-110 TESTED AT [place] [id number] [facility] (test cydg=3299) [facility] [address] [id number] 02:40:00 Test Item Value Reference Range Comments PHOSPHORUS (BEAKER) (test zkgj=116) 3.2 mg/dL 2.3-4.7 [id number] 02:40:00 Test Item Value Reference Range Comments MAGNESIUM (BEAKER) (test vpqy=971) 1.8 mg/dL 1.6-2.6 BASIC METABOLIC [id number] 02:40:00 Test Item Value Reference Range Comments SODIUM (BEAKER) (test 134 meq/L 136-145 imvm=992) POTASSIUM (BEAKER) (test 4.2 meq/L 3.5-5.1 jfrh=465) CHLORIDE (BEAKER) (test 102 meq/L 98-107 djwi=997) CO2 (BEAKER) (test 27 meq/L 22-29 ftbb=769) BLOOD UREA NITROGEN 24 mg/dL 7-21 (BEAKER) (test eqbs=341) CREATININE (BEAKER) (test 1.31 mg/dL 0.57-1.25 gwps=311) GLUCOSE RANDOM (BEAKER) 77 mg/dL 70-105 (test iyco=125) CALCIUM (BEAKER) (test 8.6 mg/dL 8.4-10.2 fiuu=637) EGFR (BEAKER) (test 64 mL/min/1.73 sq m ESTIMATED GFR IS NOT ctnf=3485) ACCURATE CREATININE CLEARANCE IN PREDICTING GLOMERULAR FILTRATION RATE. ESTIMATED GFR IS NOT APPLICABLE FOR DIALYSIS PATIENTS. CALCIUM, [id number] 02:18:00 Test Item Value Reference Range Comments CALCIUM IONIZED (BEAKER) (test wvbr=340) 1.09 mmol/L 1.12-1.27 PH, BLOOD (BEAKER) (test aqgp=5107) 7.44 HEMOGLOBIN AND [id number] 02:10:00 Test Item Value Reference Range Comments HEMOGLOBIN (BEAKER) (test xqdo=262) 9.8 GM/DL 13.7-17.5 HEMATOCRIT (BEAKER) (test goet=718) 31.9 % 40.1-51.0 CBC W/PLT COUNT & AUTO [id number] 02:10:00 Test Item Value Reference Range Comments WHITE BLOOD CELL COUNT (BEAKER) (test cwvi=599) 10.1 K/ L 3.5-10.5 RED BLOOD CELL COUNT (BEAKER) (test acqu=651) 3.54 M/ L 4.63-6.08 HEMOGLOBIN (BEAKER) (test wjsb=103) 9.8 GM/DL 13.7-17.5 HEMATOCRIT (BEAKER) (test polk=565) 31.9 % 40.1-51.0 MEAN CORPUSCULAR VOLUME (BEAKER) (test jsjl=470) 90.1 fL 79.0-92.2 MEAN CORPUSCULAR HEMOGLOBIN (BEAKER) (test 27.7 pg 25.7-32.2 nxyb=250) MEAN CORPUSCULAR HEMOGLOBIN CONC (BEAKER) (test 30.7 GM/DL 32.3-36.5 hsut=242) RED CELL DISTRIBUTION WIDTH (BEAKER) (test 17.7 % 11.6-14.4 bkdq=180) PLATELET COUNT (BEAKER) (test ugqb=314) 209 K/CU MM 150-450 MEAN PLATELET VOLUME (BEAKER) (test pusv=340) 9.9 fL 9.4-12.4 NUCLEATED RED BLOOD CELLS (BEAKER) (test 0 /100 WBC 0-0 nssj=914) NEUTROPHILS RELATIVE PERCENT (BEAKER) (test 77 % mxbw=985) LYMPHOCYTES RELATIVE PERCENT (BEAKER) (test 11 % izrh=944) MONOCYTES RELATIVE PERCENT (BEAKER) (test 10 % vaoe=380) EOSINOPHILS RELATIVE PERCENT (BEAKER) (test 2 % lygj=570) BASOPHILS RELATIVE PERCENT (BEAKER) (test 0 % bnzh=015) NEUTROPHILS ABSOLUTE COUNT (BEAKER) (test 7.78 K/ L 1.78-5.38 hncv=401) LYMPHOCYTES ABSOLUTE COUNT (BEAKER) (test 1.07 K/ L 1.32-3.57 cuxx=150) MONOCYTES ABSOLUTE COUNT (BEAKER) (test 1.04 K/ L 0.30-0.82 ltqt=063) EOSINOPHILS ABSOLUTE COUNT (BEAKER) (test 0.17 K/ L 0.04-0.54 qaog=711) BASOPHILS ABSOLUTE COUNT (BEAKER) (test 0.02 K/ L 0.01-0.08 iqju=710) IMMATURE GRANULOCYTES-RELATIVE PERCENT (BEAKER) 0 % 0-1 (test kowb=4913) POCT-GLUCOSE [id number] 01:36:00 Test Item Value Reference Range Comments POC-GLUCOSE METER (BEAKER) 97 mg/dL 70-[address] [facility] [address] [facility] (test leva=7073) [facility] [address] POCT-GLUCOSE [id number] 22:56:00 Test Item Value Reference Range Comments POC-GLUCOSE METER (BEAKER) 70 mg/dL 70-[address] [facility] [address] (test ysmb=1006) [facility] [address] [id number] 19:59:00 Test Item Value Reference Range Comments PHOSPHORUS (BEAKER) (test tfbg=312) 3.2 mg/dL 2.3-4.7 [id number] 19:59:00 Test Item Value Reference Range Comments MAGNESIUM (BEAKER) (test llyk=020) 1.9 mg/dL 1.6-2.6 COMPREHENSIVE METABOLIC [id number] 19:59:00 Test Item Value Reference Range Comments TOTAL PROTEIN (BEAKER) 7.4 gm/dL 6.0-8.3 (test fmiz=148) ALBUMIN (BEAKER) (test 2.1 g/dL 3.5-5.0 bbkw=1176) ALKALINE PHOSPHATASE 142 U/L 40-150 (BEAKER) (test kmaz=268) BILIRUBIN TOTAL (BEAKER) 0.2 mg/dL 0.2-1.2 (test dmwq=683) SODIUM (BEAKER) (test 136 meq/L 136-145 jevy=674) POTASSIUM (BEAKER) (test 4.0 meq/L 3.5-5.1 edpw=954) CHLORIDE (BEAKER) (test 102 meq/L 98-107 vwmh=137) CO2 (BEAKER) (test 29 meq/L 22-29 qmod=995) BLOOD UREA NITROGEN 27 mg/dL 7-21 (BEAKER) (test kdhk=470) CREATININE (BEAKER) (test 1.33 mg/dL 0.57-1.25 jynf=718) GLUCOSE RANDOM (BEAKER) 51 mg/dL 70-105 (test nnof=356) CALCIUM (BEAKER) (test 8.6 mg/dL 8.4-10.2 zfat=034) AST (SGOT) (BEAKER) (test 37 U/L 5-34 rgsp=011) ALT (SGPT) (BEAKER) (test 27 U/L 6-55 rmxa=145) EGFR (BEAKER) (test 63 mL/min/1.73 sq m ESTIMATED GFR IS NOT pvov=5117) ACCURATE CREATININE CLEARANCE IN PREDICTING GLOMERULAR FILTRATION RATE. ESTIMATED GFR IS NOT APPLICABLE FOR DIALYSIS PATIENTS. CBC W/PLT COUNT & AUTO [id number] 19:45:00 Test Item Value Reference Range Comments WHITE BLOOD CELL COUNT (BEAKER) (test aqhj=189) 10.5 K/ L 3.5-10.5 RED BLOOD CELL COUNT (BEAKER) (test wheu=768) 3.65 M/ L 4.63-6.08 HEMOGLOBIN (BEAKER) (test kdzg=784) 10.2 GM/DL 13.7-17.5 HEMATOCRIT (BEAKER) (test ibyp=354) 33.6 % 40.1-51.0 MEAN CORPUSCULAR VOLUME (BEAKER) (test pqqw=099) 92.1 fL 79.0-92.2 MEAN CORPUSCULAR HEMOGLOBIN (BEAKER) (test 27.9 pg 25.7-32.2 swpp=255) MEAN CORPUSCULAR HEMOGLOBIN CONC (BEAKER) (test 30.4 GM/DL 32.3-36.5 fxau=313) RED CELL DISTRIBUTION WIDTH (BEAKER) (test 17.6 % 11.6-14.4 euca=740) PLATELET COUNT (BEAKER) (test agaz=755) 213 K/CU MM 150-450 MEAN PLATELET VOLUME (BEAKER) (test zask=767) 10.7 fL 9.4-12.4 NUCLEATED RED BLOOD CELLS (BEAKER) (test 0 /100 WBC 0-0 vvvy=030) NEUTROPHILS RELATIVE PERCENT (BEAKER) (test 81 % jqqd=496) LYMPHOCYTES RELATIVE PERCENT (BEAKER) (test 8 % tayc=767) MONOCYTES RELATIVE PERCENT (BEAKER) (test 9 % mtlb=581) EOSINOPHILS RELATIVE PERCENT (BEAKER) (test 2 % vmap=292) BASOPHILS RELATIVE PERCENT (BEAKER) (test 0 % hnqm=122) NEUTROPHILS ABSOLUTE COUNT (BEAKER) (test 8.47 K/ L 1.78-5.38 hgrd=319) LYMPHOCYTES ABSOLUTE COUNT (BEAKER) (test 0.79 K/ L 1.32-3.57 sfdr=690) MONOCYTES ABSOLUTE COUNT (BEAKER) (test 0.96 K/ L 0.30-0.82 mmck=698) EOSINOPHILS ABSOLUTE COUNT (BEAKER) (test 0.22 K/ L 0.04-0.54 amii=596) BASOPHILS ABSOLUTE COUNT (BEAKER) (test 0.03 K/ L 0.01-0.08 bhrw=886) IMMATURE GRANULOCYTES-RELATIVE PERCENT (BEAKER) 0 % 0-1 (test xmhp=0310) HEMOGLOBIN AND [id number] 19:43:00 Test Item Value Reference Range Comments HEMOGLOBIN (BEAKER) (test jvgw=874) 10.2 GM/DL 13.7-17.5 HEMATOCRIT (BEAKER) (test jcst=720) 33.6 % 40.1-51.0 POCT-GLUCOSE [id number] 16:53:00 Test Item Value Reference Range Comments POC-GLUCOSE METER (BEAKER) 83 mg/dL 70-110 TESTED AT [address] (test czrk=3126) [place] [id number] PERIPHERAL BLOOD SMEAR - PATHOLOGIST [id number] 11:31:00 Test Item Value Reference Range Comments RBC MORPHOLOGY (BEAKER) Polychromasia (test ipcu=3415) RBC MORPHOLOGY (BEAKER) Anisocytosis (test myis=48820) RBC MORPHOLOGY (BEAKER) Poikilocytosis (test gjrl=37685) WBC MORPHOLOGY (BEAKER) Toxic Granulation (test yarx=5738) PERIPHERAL SMR REVIEW Cell counts confirmed. (BEAKER) (test vlei=8649) [id number] Rafaela Dowell M.D. (electronic (BEAKER) (test mqlf=8363) signature) POCT-GLUCOSE [id number] 08:24:00 Test Item Value Reference Range Comments POC-GLUCOSE METER (BEAKER) 236 mg/dL 70-110 TESTED AT [address] (test sxjo=3248) [place] [id number] 07:35:00 Test Item Value Reference Range Comments HAPTOGLOBIN (BEAKER) (test ekck=007) 185 mg/dL 14-258 BASIC METABOLIC [id number] 07:34:00 Test Item Value Reference Range Comments SODIUM (BEAKER) (test 141 meq/L 136-145 lhpx=688) POTASSIUM (BEAKER) (test 4.2 meq/L 3.5-5.1 amed=090) CHLORIDE (BEAKER) (test 112 meq/L 98-107 mrar=364) CO2 (BEAKER) (test 26 meq/L 22-29 dhov=694) BLOOD UREA NITROGEN 23 mg/dL 7-21 (BEAKER) (test gkmp=947) CREATININE (BEAKER) (test 1.23 mg/dL 0.57-1.25 tzel=179) GLUCOSE RANDOM (BEAKER) 186 mg/dL 70-105 (test ixep=327) CALCIUM (BEAKER) (test 8.0 mg/dL 8.4-10.2 mqjs=619) EGFR (BEAKER) (test 69 mL/min/1.73 sq m ESTIMATED GFR IS NOT oukg=8442) ACCURATE CREATININE CLEARANCE IN PREDICTING GLOMERULAR FILTRATION RATE. ESTIMATED GFR IS NOT APPLICABLE FOR DIALYSIS PATIENTS. CBC W/PLT COUNT & AUTO [id number] 07:21:00 Test Item Value Reference Range Comments WHITE BLOOD CELL COUNT (BEAKER) (test eenz=995) 8.9 K/ L 3.5-10.5 RED BLOOD CELL COUNT (BEAKER) (test xrwa=043) 3.26 M/ L 4.63-6.08 HEMOGLOBIN (BEAKER) (test zzvk=986) 9.1 GM/DL 13.7-17.5 HEMATOCRIT (BEAKER) (test qovg=932) 29.6 % 40.1-51.0 MEAN CORPUSCULAR VOLUME (BEAKER) (test tvtd=058) 90.8 fL 79.0-92.2 MEAN CORPUSCULAR HEMOGLOBIN (BEAKER) (test 27.9 pg 25.7-32.2 cuvf=351) MEAN CORPUSCULAR HEMOGLOBIN CONC (BEAKER) (test 30.7 GM/DL 32.3-36.5 inzs=890) RED CELL DISTRIBUTION WIDTH (BEAKER) (test 17.9 % 11.6-14.4 nsxz=220) PLATELET COUNT (BEAKER) (test ayrq=630) 211 K/CU MM 150-450 MEAN PLATELET VOLUME (BEAKER) (test cndx=595) 10.3 fL 9.4-12.4 NUCLEATED RED BLOOD CELLS (BEAKER) (test 0 /100 WBC 0-0 dvwb=309) NEUTROPHILS RELATIVE PERCENT (BEAKER) (test 73 % mlzo=025) LYMPHOCYTES RELATIVE PERCENT (BEAKER) (test 12 % kbcq=499) MONOCYTES RELATIVE PERCENT (BEAKER) (test 12 % avbg=464) EOSINOPHILS RELATIVE PERCENT (BEAKER) (test 2 % wkmh=968) BASOPHILS RELATIVE PERCENT (BEAKER) (test 0 % cuje=505) NEUTROPHILS ABSOLUTE COUNT (BEAKER) (test 6.49 K/ L 1.78-5.38 wnyq=860) LYMPHOCYTES ABSOLUTE COUNT (BEAKER) (test 1.11 K/ L 1.32-3.57 blzr=710) MONOCYTES ABSOLUTE COUNT (BEAKER) (test 1.08 K/ L 0.30-0.82 flpc=927) EOSINOPHILS ABSOLUTE COUNT (BEAKER) (test 0.19 K/ L 0.04-0.54 tvso=851) BASOPHILS ABSOLUTE COUNT (BEAKER) (test 0.02 K/ L 0.01-0.08 agzv=795) IMMATURE GRANULOCYTES-RELATIVE PERCENT (BEAKER) 0 % 0-1 (test soij=3550) POCT-GLUCOSE [id number] 06:39:00 Test Item Value Reference Range Comments POC-GLUCOSE METER (BEAKER) 239 mg/dL 70-110 TESTED AT [address] (test fqdy=6883) [place] [address] POCT-GLUCOSE [id number] 23:40:00 Test Item Value Reference Range Comments POC-GLUCOSE METER (BEAKER) 234 mg/dL 70-110 TESTED AT [address] (test ebaa=8684) [place] [id number] POCT-GLUCOSE [id number] 17:26:00 Test Item Value Reference Range Comments POC-GLUCOSE METER (BEAKER) 257 mg/dL 70-110 TESTED AT [address] (test dqpa=4861) [facility] [address] BASIC METABOLIC [id number] 16:15:00 Test Item Value Reference Range Comments SODIUM (BEAKER) (test 140 meq/L 136-145 phry=705) POTASSIUM (BEAKER) (test 4.6 meq/L 3.5-5.1 deax=509) CHLORIDE (BEAKER) (test 111 meq/L 98-107 pwlg=493) CO2 (BEAKER) (test 25 meq/L 22-29 rzba=540) BLOOD UREA NITROGEN 24 mg/dL 7-21 (BEAKER) (test koaj=631) CREATININE (BEAKER) (test 1.21 mg/dL 0.57-1.25 sezi=220) GLUCOSE RANDOM (BEAKER) 195 mg/dL 70-105 (test lbbr=301) CALCIUM (BEAKER) (test 8.2 mg/dL 8.4-10.2 wvba=327) EGFR (BEAKER) (test 71 mL/min/1.73 sq m ESTIMATED GFR IS NOT mkht=9508) ACCURATE CREATININE CLEARANCE IN PREDICTING GLOMERULAR FILTRATION RATE. ESTIMATED GFR IS NOT APPLICABLE FOR DIALYSIS PATIENTS. RETICULOCYTE [id number] 15:59:00 Test Item Value Reference Range Comments RETICULOCYTE COUNT PCT (BEAKER) (test hvco=478) 2.3 % 0.5-1.8 HEPATIC FUNCTION [id number] 13:31:00 Test Item Value Reference Range Comments TOTAL PROTEIN (BEAKER) (test 4.8 gm/dL 6.0-8.3 Specimen slightly hemolyzed iwoz=702) ALBUMIN (BEAKER) (test 1.2 g/dL 3.5-5.0 Specimen slightly hemolyzed ddub=5066) BILIRUBIN TOTAL (BEAKER) (test 0.2 mg/dL 0.2-1.2 Specimen slightly hemolyzed lzpl=218) BILIRUBIN DIRECT (BEAKER) (test 0.1 mg/dL 0.1-0.5 Specimen slightly hemolyzed fjur=363) ALKALINE PHOSPHATASE (BEAKER) 74 U/L 40-150 (test hhsv=809) AST (SGOT) (BEAKER) (test 38 U/L 5-34 Specimen slightly hemolyzed djio=989) ALT (SGPT) (BEAKER) (test 19 U/L 6-55 Specimen slightly hemolyzed nxha=152) LACTATE DEHYDROGENASE (LDH)[id number] 13:30:00 Test Item Value Reference Range Comments LACTATE DEHYDROGENASE (BEAKER) 338 U/L 125-220 Specimen slightly hemolyzed (test cplm=898) CBC W/PLT COUNT & AUTO [id number] 13:17:00 Test Item Value Reference Range Comments WHITE BLOOD CELL COUNT (BEAKER) (test mnjg=481) 11.2 K/ L 3.5-10.5 RED BLOOD CELL COUNT (BEAKER) (test gksz=630) 3.14 M/ L 4.63-6.08 HEMOGLOBIN (BEAKER) (test szvi=799) 8.6 GM/DL 13.7-17.5 HEMATOCRIT (BEAKER) (test ytkl=585) 28.2 % 40.1-51.0 MEAN CORPUSCULAR VOLUME (BEAKER) (test ydmf=717) 89.8 fL 79.0-92.2 MEAN CORPUSCULAR HEMOGLOBIN (BEAKER) (test 27.4 pg 25.7-32.2 fvyd=789) MEAN CORPUSCULAR HEMOGLOBIN CONC (BEAKER) (test 30.5 GM/DL 32.3-36.5 gygc=206) RED CELL DISTRIBUTION WIDTH (BEAKER) (test 17.2 % 11.6-14.4 jvaz=565) PLATELET COUNT (BEAKER) (test npnc=865) 196 K/CU MM 150-450 MEAN PLATELET VOLUME (BEAKER) (test ipfs=982) 10.2 fL 9.4-12.4 NUCLEATED RED BLOOD CELLS (BEAKER) (test 0 /100 WBC 0-0 hdse=627) NEUTROPHILS RELATIVE PERCENT (BEAKER) (test 79 % unpb=918) LYMPHOCYTES RELATIVE PERCENT (BEAKER) (test 9 % buuj=145) MONOCYTES RELATIVE PERCENT (BEAKER) (test 11 % ubat=921) EOSINOPHILS RELATIVE PERCENT (BEAKER) (test 1 % onpb=267) BASOPHILS RELATIVE PERCENT (BEAKER) (test 0 % iuft=274) NEUTROPHILS ABSOLUTE COUNT (BEAKER) (test 8.88 K/ L 1.78-5.38 fmbc=598) LYMPHOCYTES ABSOLUTE COUNT (BEAKER) (test 0.96 K/ L 1.32-3.57 nwcq=744) MONOCYTES ABSOLUTE COUNT (BEAKER) (test 1.26 K/ L 0.30-0.82 jpoa=723) EOSINOPHILS ABSOLUTE COUNT (BEAKER) (test 0.06 K/ L 0.04-0.54 jvgp=547) BASOPHILS ABSOLUTE COUNT (BEAKER) (test 0.02 K/ L 0.01-0.08 awyy=192) IMMATURE GRANULOCYTES-RELATIVE PERCENT (BEAKER) 0 % 0-1 (test ogjx=4496) POCT-GLUCOSE [id number] 12:30:00 Test Item Value Reference Range Comments POC-GLUCOSE METER (BEAKER) 193 mg/dL 70-[address] [facility] [address] [facility] (test jkgy=7494) [place] [address] VANCOMYCIN LEVEL, [id number] 09:00:00 Test Item Value Reference Range Comments VANCOMYCIN RANDOM (BEAKER) (test laup=627) 22.6 ug/mL Reference Range: No [id number] 07:29:00 Test Item Value Reference Range Comments MAGNESIUM (BEAKER) (test bsyc=294) 1.9 mg/dL 1.6-2.6 BASIC METABOLIC [id number] 07:29:00 Test Item Value Reference Range Comments SODIUM (BEAKER) (test 141 meq/L 136-145 ayes=854) POTASSIUM (BEAKER) (test 3.7 meq/L 3.5-5.1 aele=027) CHLORIDE (BEAKER) (test 113 meq/L 98-107 urio=506) CO2 (BEAKER) (test 23 meq/L 22-29 masx=313) BLOOD UREA NITROGEN 23 mg/dL 7-21 (BEAKER) (test wqet=202) CREATININE (BEAKER) (test 1.11 mg/dL 0.57-1.25 qxra=055) GLUCOSE RANDOM (BEAKER) 100 mg/dL 70-105 (test owhq=896) CALCIUM (BEAKER) (test 8.2 mg/dL 8.4-10.2 hkla=967) EGFR (BEAKER) (test 78 mL/min/1.73 sq m ESTIMATED GFR IS NOT cwrm=0279) ACCURATE CREATININE CLEARANCE IN PREDICTING GLOMERULAR FILTRATION RATE. ESTIMATED GFR IS NOT APPLICABLE FOR DIALYSIS PATIENTS. CBC W/PLT COUNT & AUTO [id number] 07:00:00 Test Item Value Reference Range Comments WHITE BLOOD CELL COUNT (BEAKER) (test bhql=172) 11.9 K/ L 3.5-10.5 RED BLOOD CELL COUNT (BEAKER) (test pkok=210) 2.36 M/ L 4.63-6.08 HEMOGLOBIN (BEAKER) (test lizs=709) 6.6 GM/DL 13.7-17.5 HEMATOCRIT (BEAKER) (test sbwe=097) 21.2 % 40.1-51.0 MEAN CORPUSCULAR VOLUME (BEAKER) (test jkdn=905) 89.8 fL 79.0-92.2 MEAN CORPUSCULAR HEMOGLOBIN (BEAKER) (test 28.0 pg 25.7-32.2 vxkq=851) MEAN CORPUSCULAR HEMOGLOBIN CONC (BEAKER) (test 31.1 GM/DL 32.3-36.5 kngm=481) RED CELL DISTRIBUTION WIDTH (BEAKER) (test 18.6 % 11.6-14.4 xutr=450) PLATELET COUNT (BEAKER) (test doaw=886) 210 K/CU MM 150-450 MEAN PLATELET VOLUME (BEAKER) (test gixc=496) 10.7 fL 9.4-12.4 NUCLEATED RED BLOOD CELLS (BEAKER) (test 0 /100 WBC 0-0 ndsf=028) NEUTROPHILS RELATIVE PERCENT (BEAKER) (test 77 % gjmu=327) LYMPHOCYTES RELATIVE PERCENT (BEAKER) (test 10 % halo=756) MONOCYTES RELATIVE PERCENT (BEAKER) (test 12 % wizj=072) EOSINOPHILS RELATIVE PERCENT (BEAKER) (test 0 % omff=467) BASOPHILS RELATIVE PERCENT (BEAKER) (test 0 % fzib=886) NEUTROPHILS ABSOLUTE COUNT (BEAKER) (test 9.19 K/ L 1.78-5.38 dstp=118) LYMPHOCYTES ABSOLUTE COUNT (BEAKER) (test 1.21 K/ L 1.32-3.57 rcwn=637) MONOCYTES ABSOLUTE COUNT (BEAKER) (test 1.38 K/ L 0.30-0.82 uadr=114) EOSINOPHILS ABSOLUTE COUNT (BEAKER) (test 0.03 K/ L 0.04-0.54 bpyu=324) BASOPHILS ABSOLUTE COUNT (BEAKER) (test 0.04 K/ L 0.01-0.08 lbvm=142) IMMATURE GRANULOCYTES-RELATIVE PERCENT (BEAKER) 0 % 0-1 (test uigy=7161) POCT-GLUCOSE [id number] 06:47:00 Test Item Value Reference Range Comments POC-GLUCOSE METER (BEAKER) 128 mg/dL 70-110 TESTED AT [address] (test edrg=5740) [facility] [address] POCT-GLUCOSE [id number] 01:25:00 Test Item Value Reference Range Comments POC-GLUCOSE METER (BEAKER) 81 mg/dL 70-110 TESTED AT [address] (test izvg=6725) [facility] [address] VANCOMYCIN LEVEL, [id number] 21:59:00 Test Item Value Reference Range Comments VANCOMYCIN TROUGH (BEAKER) (test xngb=033) 26.3 ug/mL 10.0-20.0 WAIT FOR LEVEL TO RETURN BEFORE GIVING DOSE. If vancomycin trough level > 20 , HOLD dose and contact MD and pharmacist.POCT-GLUCOSE [id number] 17:48:00 Test Item Value Reference Range Comments POC-GLUCOSE METER (BEAKER) 96 mg/dL 70-110 TESTED AT [address] (test uoke=7515) [facility] [address] POCT-GLUCOSE [id number] 15:40:00 Test Item Value Reference Range Comments POC-GLUCOSE METER (BEAKER) 106 mg/dL 70-110 TESTED AT [address] (test itpp=3816) [facility] [address] CBC W/PLT COUNT & AUTO [id number] 14:21:00 Test Item Value Reference Range Comments WHITE BLOOD CELL COUNT (BEAKER) (test qvcm=015) 12.6 K/ L 3.5-10.5 RED BLOOD CELL COUNT (BEAKER) (test anwe=759) 2.64 M/ L 4.63-6.08 HEMOGLOBIN (BEAKER) (test dpvu=526) 7.3 GM/DL 13.7-17.5 HEMATOCRIT (BEAKER) (test bfra=556) 23.8 % 40.1-51.0 MEAN CORPUSCULAR VOLUME (BEAKER) (test ctfb=617) 90.2 fL 79.0-92.2 MEAN CORPUSCULAR HEMOGLOBIN (BEAKER) (test 27.7 pg 25.7-32.2 uubd=635) MEAN CORPUSCULAR HEMOGLOBIN CONC (BEAKER) (test 30.7 GM/DL 32.3-36.5 dvgv=660) RED CELL DISTRIBUTION WIDTH (BEAKER) (test 18.2 % 11.6-14.4 jgcx=761) PLATELET COUNT (BEAKER) (test bisx=676) 225 K/CU MM 150-450 MEAN PLATELET VOLUME (BEAKER) (test sqkd=635) 10.6 fL 9.4-12.4 NUCLEATED RED BLOOD CELLS (BEAKER) (test 0 /100 WBC 0-0 goom=425) (CELLAVISION MANUAL DIFF)[id number] 14:21:00 Test Item Value Reference Range Comments NEUTROPHILS - REL (CELLAVISION)(BEAKER) (test 89 % fgzo=6678) LYMPHOCYTES - REL (CELLAVISION)(BEAKER) (test 5 % mvxf=6841) MONOCYTES - REL (CELLAVISION)(BEAKER) (test 5 % zwnp=2425) ATYPICAL LYMPHOCYTES - REL (CELLAVISION)(BEAKER) 1 % 0-0 (test lttf=4414) NEUTROPHILS - ABS (CELLAVISION)(BEAKER) (test 11.21 K/ul 1.78-5.38 eprc=8240) LYMPHOCYTES - ABS (CELLAVISION)(BEAKER) (test 0.63 K/ul 1.32-3.57 qlsz=1354) MONOCYTES - ABS (CELLAVISION)(BEAKER) (test 0.63 K/uL 0.30-0.82 ajjf=3386) ATYPICAL LYMPHOCYTES - ABS (CELLAVISION)(BEAKER) 0.13 K/uL 0.00-0.00 (test auyd=4094) TOTAL COUNTED (BEAKER) (test ceew=6578) 100 PLT MORPHOLOGY (BEAKER) (test mysx=657) Normal SMUDGE CELLS (BEAKER) (test ehjx=0694) Present ANISOCYTOSIS (BEAKER) (test ywfk=198) 1+ few POIKILOCYTES (BEAKER) (test ggoo=015) 2+ moderate CESILIA CELLS (BEAKER) (test czun=701) 1+ few PLATELET CONCENTRATION (CELLAVISION)(BEAKER) Adequate (test klao=0538) Received comment: User comments: Slide comments:POCT-GLUCOSE [id number] 12: 02:00 Test Item Value Reference Range Comments POC-GLUCOSE METER (BEAKER) 84 mg/dL 70-[address] [facility] [address] [facility] (test ufcs=9481) [facility] [address] [id number] 07:12:00 Test Item Value Reference Range Comments MAGNESIUM (BEAKER) (test rlzi=610) 1.6 mg/dL 1.6-2.6 BASIC METABOLIC [id number] 07:12:00 Test Item Value Reference Range Comments SODIUM (BEAKER) (test 140 meq/L 136-145 wzvf=061) POTASSIUM (BEAKER) (test 3.7 meq/L 3.5-5.1 eddr=906) CHLORIDE (BEAKER) (test 110 meq/L 98-107 mnwc=210) CO2 (BEAKER) (test 25 meq/L 22-29 doyt=572) BLOOD UREA NITROGEN 27 mg/dL 7-21 (BEAKER) (test svau=541) CREATININE (BEAKER) (test 1.07 mg/dL 0.57-1.25 caoj=696) GLUCOSE RANDOM (BEAKER) 67 mg/dL 70-105 (test pyjo=926) CALCIUM (BEAKER) (test 8.5 mg/dL 8.4-10.2 kpfc=443) EGFR (BEAKER) (test 81 mL/min/1.73 sq m ESTIMATED GFR IS NOT zjsz=4840) ACCURATE CREATININE CLEARANCE IN PREDICTING GLOMERULAR FILTRATION RATE. ESTIMATED GFR IS NOT APPLICABLE FOR DIALYSIS PATIENTS. POCT-GLUCOSE [id number] 06:24:00 Test Item Value Reference Range Comments POC-GLUCOSE METER (BEAKER) 71 mg/dL 70-110 TESTED AT [address] (test nugr=5913) [place] [address] POCT-GLUCOSE [id number] 00:20:00 Test Item Value Reference Range Comments POC-GLUCOSE METER (BEAKER) 106 mg/dL 70-110 TESTED AT [address] (test koot=1572) [place] [address] POCT-GLUCOSE [id number] 18:43:00 Test Item Value Reference Range Comments POC-GLUCOSE METER (BEAKER) 104 mg/dL 70-110 TESTED AT [address] (test vils=7067) [place] [address] POCT-GLUCOSE [id number] 12:56:00 Test Item Value Reference Range Comments POC-GLUCOSE METER (BEAKER) 113 mg/dL 70-110 TESTED AT [address] (test heuc=0435) [place] [address] CBC W/PLT COUNT & AUTO [id number] 11:01:00 Test Item Value Reference Range Comments WHITE BLOOD CELL COUNT (BEAKER) (test ilgu=430) 12.9 K/ L 3.5-10.5 RED BLOOD CELL COUNT (BEAKER) (test kgvp=611) 2.66 M/ L 4.63-6.08 HEMOGLOBIN (BEAKER) (test npqr=879) 7.5 GM/DL 13.7-17.5 HEMATOCRIT (BEAKER) (test qhvc=243) 24.1 % 40.1-51.0 MEAN CORPUSCULAR VOLUME (BEAKER) (test wgzb=119) 90.6 fL 79.0-92.2 MEAN CORPUSCULAR HEMOGLOBIN (BEAKER) (test 28.2 pg 25.7-32.2 sujo=217) MEAN CORPUSCULAR HEMOGLOBIN CONC (BEAKER) (test 31.1 GM/DL 32.3-36.5 rrnn=504) RED CELL DISTRIBUTION WIDTH (BEAKER) (test 18.4 % 11.6-14.4 jgnd=125) PLATELET COUNT (BEAKER) (test ppcr=422) 208 K/CU MM 150-450 MEAN PLATELET VOLUME (BEAKER) (test djnb=833) 10.8 fL 9.4-12.4 NUCLEATED RED BLOOD CELLS (BEAKER) (test 0 /100 WBC 0-0 napf=288) (CELLAVISION MANUAL DIFF)[id number] 11:01:00 Test Item Value Reference Range Comments NEUTROPHILS - REL (CELLAVISION)(BEAKER) (test 86 % jylj=4442) LYMPHOCYTES - REL (CELLAVISION)(BEAKER) (test 1 % zpnv=7700) MONOCYTES - REL (CELLAVISION)(BEAKER) (test 9 % tfbb=8023) BANDS - REL (CELLAVISION)(BEAKER) (test 3 % 0-10 ezvt=0225) ATYPICAL LYMPHOCYTES - REL (CELLAVISION)(BEAKER) 1 % 0-0 (test vgpn=9701) NEUTROPHILS - ABS (CELLAVISION)(BEAKER) (test 11.09 K/ul 1.78-5.38 asro=5439) LYMPHOCYTES - ABS (CELLAVISION)(BEAKER) (test 0.13 K/ul 1.32-3.57 clmi=8737) MONOCYTES - ABS (CELLAVISION)(BEAKER) (test 1.16 K/uL 0.30-0.82 tvya=7248) BANDS - ABS (CELLAVISION)(BEAKER) (test 0.39 K/uL 0.00-0.80 yxnv=0232) ATYPICAL LYMPHOCYTES - ABS (CELLAVISION)(BEAKER) 0.13 K/uL 0.00-0.00 (test daky=0396) TOTAL COUNTED (BEAKER) (test xsvn=8513) 100 WBC MORPHOLOGY (BEAKER) (test wfjh=184) Normal PLT MORPHOLOGY (BEAKER) (test bbci=346) Normal POLYCHROMATOPHILLIC RBCS(BEAKER) (test lgkd=458) 1+ few HYPOCHROMIA (BEAKER) (test fikt=016) 1+ few ARTIFACT (CELLAVISION)(BEAKER) (test zbdw=7548) Present PLATELET CONCENTRATION (CELLAVISION)(BEAKER) Adequate (test xcdm=2050) Received comment: User comments: Slide comments:POCT-GLUCOSE [id number] 07: 57:00 Test Item Value Reference Range Comments POC-GLUCOSE METER (BEAKER) 96 mg/dL 70-[address] [facility] [address] [facility] (test yqco=[id number]) [facility] [id number] 07:34:00 Test Item Value Reference Range Comments MAGNESIUM (BEAKER) (test mfio=351) 1.8 mg/dL 1.6-2.6 BASIC METABOLIC [id number] 07:34:00 Test Item Value Reference Range Comments SODIUM (BEAKER) (test 138 meq/L 136-145 cqof=305) POTASSIUM (BEAKER) (test 4.0 meq/L 3.5-5.1 wqwe=419) CHLORIDE (BEAKER) (test 108 meq/L 98-107 shwz=114) CO2 (BEAKER) (test 26 meq/L 22-29 ojzm=102) BLOOD UREA NITROGEN 33 mg/dL 7-21 (BEAKER) (test mlwg=085) CREATININE (BEAKER) (test 1.10 mg/dL 0.57-1.25 udgu=012) GLUCOSE RANDOM (BEAKER) 79 mg/dL 70-105 (test smic=173) CALCIUM (BEAKER) (test 8.4 mg/dL 8.4-10.2 zecl=480) EGFR (BEAKER) (test 79 mL/min/1.73 sq m ESTIMATED GFR IS NOT syax=2537) ACCURATE CREATININE CLEARANCE IN PREDICTING GLOMERULAR FILTRATION RATE. ESTIMATED GFR IS NOT APPLICABLE FOR DIALYSIS PATIENTS.
[2018-12-14] MEDS ORDERED: SILVER NITRATE 1 APPL TOP ONE (15:09)
[2018-12-14 15:42] LABS: Absolute Lymphocytes (CBC) 0.9 K/uL (0.7-4.9); Absolute Monocytes 1.3 K/uL (0.1-1.3); Absolute Neutrophil 9.9 K/uL (1.8-8.0); Basophils % 0.7 % (0-1.3); Eosinophils % 0.9 % (0-4.4); Hematocrit 23.4 % (39.6-49.0); Lymphocytes % 7.3 % (15.3-44.8); MPV 8.3 fL (7.6-11.3); Monocytes % 10.7 % (3.3-12.3)
--- NOTE | 2018-12-14 15:45 | RAD REPORT ---
EXAM DESCRIPTION: RAD - Chest Single View - 12/14/2018 3:32 pm CLINICAL HISTORY: ABDOMINAL DISTENTION Chest pain. COMPARISON: Chest Single View dated 11/12/2018; Chest Single View dated 11/07/2018; Chest Single View dated 11/04/2018; Chest Single View dated 07/11/2018 FINDINGS: Portable technique limits examination quality. The lungs are grossly clear. The heart is normal in size. No displaced fractures. IMPRESSION: No acute intrathoracic process suspected.
[2018-12-14 15:57] LABS: Protime INR 1.14
[2018-12-14 16:06] LABS: ALT/SGPT 28 U/L (12-78); AST/SGOT 28 U/L (15-37); Albumin 1.3 g/dL (3.4-5.0); Alkaline Phosphatase 146 U/L (45-117); BUN Blood Urea Nitrogen 24 mg/dL (7-18); Bicarbonate 27 mmol/L (21-32); Bilirubin Direct < 0.1 mg/dL (0-0.2); Bilirubin Total 0.1 mg/dL (0.2-1.0); Glucose Level 294 mg/dL (74-106); Lipase 86 U/L (73-393); Magnesium 1.9 mg/dL (1.8-2.4); NT PRO-BNP 857 pg/mL (<450); Potassium 4.3 mmol/L (3.5-5.1); Protein, Total 6.4 g/dL (6.4-8.2); Sodium Level 146 mmol/L (136-145); Troponin (Emerg Dept Use Only) < 0.02 ng/mL (0.0-0.045)
--- NOTE | 2018-12-14 16:32 | EDPHYS ---
Physician Documentation [facility] Name: Leonardo Kumari Age: 78 yrs Sex: Male : 1940 Arrival Date: 12/14/2018 Time: 14:55 Bed 5 Private MD: ED Physician Surinder Salcedo HPI: 12/14 15:11 This 78 yrs old Black Male presents to ER via EMS with complaints of Bleeding from old madisyn PEG tube site. 15:11 The patient presents with abdominal pain. Onset: The symptoms/episode began/occurred madisyn just prior to arrival, this morning. The patient presents to the emergency department. The patient presents to the emergency department at [facility]. Onset: The symptoms/episode began/occurred 2 day(s) ago. Abdominal pain: none is appreciated. Modifying factors: The symptoms are alleviated by nothing. Associated signs and symptoms: The patient has no apparent associated signs or symptoms. Associated signs and symptoms: none. Historical: - Allergies: 15:06 Ibuprofen; sv 15:06 Stadol; sv 15:06 Versed; sv - PMHx: 15:06 Allergic rhinitis; Aphasia; constipation; Contracture; Dementia; Depression; Diabetes - sv NIDDM; DYSPHAGIA; GERD; GI Bleed; Hemiplegia/hemiparesis; High Cholesterol; Hypertension; hypotension; MRSA; Paraplegia; UTI; - PSHx: 15:06 Unable to obtain; sv - Immunization history:: Adult Immunizations up to date. - Social history:: Smoking status: Patient/guardian denies using tobacco. - Family history:: not pertinent. - Ebola Screening: : No symptoms or risks identified at this time. ROS: 15:11 Constitutional: Negative for fever, chills, and weight loss, Eyes: Negative for injury, madisyn pain, redness, and discharge, ENT: Negative for injury, pain, and discharge, Neck: Negative for injury, pain, and swelling, Cardiovascular: Negative for chest pain, palpitations, and edema, Respiratory: Negative for shortness of breath, cough, wheezing, and pleuritic chest pain, Back: Negative for injury and pain, : Negative for injury, bleeding, discharge, and swelling, MS/Extremity: Negative for injury and deformity, Skin: Negative for injury, rash, and discoloration, Neuro: Negative for headache, weakness, numbness, tingling, and seizure, Psych: Negative for depression, anxiety, suicide ideation, homicidal ideation, and hallucinations, Allergy/Immunology: Negative for hives, rash, and allergies, Endocrine: Negative for neck swelling, polydipsia, polyuria, polyphagia, and marked weight changes. 15:11 Abdomen/GI: Positive for abdominal pain, abdominal cramps, of the right upper quadrant, left upper quadrant, right lower quadrant and left lower quadrant. Exam: 15:11 Constitutional: This is a well developed, well nourished patient who is awake, alert, madisyn and in no acute distress. Head/Face: Normocephalic, atraumatic. Eyes: Pupils equal round and reactive to light, extra-ocular motions intact. Lids and lashes normal. Conjunctiva and sclera are non-icteric and not injected. Cornea within normal limits. Periorbital areas with no swelling, redness, or edema. ENT: Nares patent. No nasal discharge, no septal abnormalities noted. Tympanic membranes are normal and external auditory canals are clear. Oropharynx with no redness, swelling, or masses, exudates, or evidence of obstruction, uvula midline. Mucous membranes moist. Neck: Trachea midline, no thyromegaly or masses palpated, and no cervical lymphadenopathy. Supple, full range of motion without nuchal rigidity, or vertebral point tenderness. No Meningismus. Chest/axilla: Normal chest wall appearance and motion. Nontender with no deformity. No lesions are appreciated. Respiratory: Lungs have equal breath sounds bilaterally, clear to auscultation and percussion. No rales, rhonchi or wheezes noted. No increased work of breathing, no retractions or nasal flaring. Abdomen/GI: Soft, non-tender, with normal bowel sounds. No distension or tympany. No guarding or rebound. No evidence of tenderness throughout. Back: No spinal tenderness. No costovertebral tenderness. Full range of motion. Male : Normal genitalia with no discharge or lesions. Skin: Warm, dry with normal turgor. Normal color with no rashes, no lesions, and no evidence of cellulitis. MS/ Extremity: Pulses equal, no cyanosis. Neurovascular intact. Full, normal range of motion. Neuro: Awake and alert, GCS 15, oriented to person, place, time, and situation. Cranial nerves II-XII grossly intact. Motor strength 5/5 in all extremities. Sensory grossly intact. Cerebellar exam normal. Normal gait. Psych: Awake, alert, with orientation to person, place and time. Behavior, mood, and affect are within normal limits. 15:11 Cardiovascular: Rate: tachycardic, Rhythm: regular, Pulses: Pulses are 4+ in bilateral radial, brachial, femoral, popliteal, posterior tibial and and dorsalis pedis arteries.. Heart sounds: normal, JVD: is not appreciated. Vital Signs: 14:43 BP 160 / 78; Pulse 114; Resp 20; Temp 98.1(O); Weight 77 kg; Pain 0/10; sv 15:30 BP 146 / 70; Pulse 112; Resp 16; Pulse Ox 97% ; sv 16:00 BP 150 / 66; Pulse 107; Resp 18; Pulse Ox 100% on R/A; sv 16:30 BP 146 / 97; Pulse 110; Resp 23; Pulse Ox 100% on R/A; sv 17:35 BP 143 / 83; Pulse 106; Resp 20; Temp 97.2; Pulse Ox 100% on R/A; sv 17:45 BP 143 / 74; Pulse 107; Resp 21; Temp 97.3; Pulse Ox 100% on R/A; sv 17:55 BP 130 / 63; Pulse 104; Resp 17; Temp 97.3; Pulse Ox 100% on R/A; sv 18:10 BP 131 / 65; Pulse 104; Resp 16; Temp 97.1; Pulse Ox 100% on R/A; sv 18:40 BP 130 / 68; Pulse 103; Resp 15; Temp 97.5; Pulse Ox 100% on R/A; sv 19:23 BP 148 / 65; Pulse 105; Resp 15; Pulse Ox 100% on R/A; Pain 0/10; tl1 21:44 BP 143 / 61; Pulse 94; Resp 22; Temp 97.8; Pulse Ox 100% on R/A; Pain 0/10; tl1 Procedures: 16:36 Performed wound care, silver nitrate, surgicel, good hemostasis. [facility] MDM: 15:02 Patient medically screened. [facility] 15:11 Data reviewed: vital signs, nurses notes, lab test result(s), EKG, radiologic studies, [facility] plain films. 12/14 15:11 Order name: Basic Metabolic Panel [facility] 12/14 15:11 Order name: CBC with Diff [facility] 12/14 15:11 Order name: LFT's [facility] 12/14 15:11 Order name: Magnesium; Complete Time: 16:22 [facility] 12/14 15:11 Order name: NT PRO-BNP; Complete Time: 16:22 [facility] 12/14 15:11 Order name: PT-INR; Complete Time: 16:22 [facility] 12/14 15:11 Order name: Troponin (emerg Dept Use Only); Complete Time: 16:22 [facility] 12/14 15:11 Order name: Lipase; Complete Time: 16:22 [facility] 12/14 15:12 Order name: Basic Metabolic Panel; Complete Time: 16:22 [facility] 12/14 15:12 Order name: CBC with Automated Diff; Complete Time: 16:22 [facility] 12/14 15:12 Order name: Liver (Hepatic) Function; Complete Time: 16:22 [facility] 12/14 15:22 Order name: Lactate; Complete Time: 16:22 12/14 15:22 Order name: Creatinine for Radiology; Complete Time: 16:22 12/14 15:24 Order name: Type And Screen 12/14 15:11 Order name: XRAY Chest (1 view); Complete Time: 16:22 [facility] 12/14 15:11 Order name: EKG; Complete Time: 15:13 [facility] 12/14 15:11 Order name: Cardiac monitoring; Complete Time: 15:36 [facility] 12/14 15:33 Order name: Blood Culture Adult (2) 12/14 16:28 Order name: Bb Add On 12/14 16:29 Order name: Packed RBC Leukored -1 [facility] 12/14 16:30 Order name: Abdomen 1 View (KUB) XRAY [facility] 12/14 16:41 Order name: Urine Microscopic Only; Complete Time: 17:47 12/14 16:57 Order name: Urine Dipstick--Ancillary (enter results); Complete Time: 17:47 12/14 17:44 Order name: Urine Culture [facility] 12/14 15:11 Order name: EKG - Nurse/Tech; Complete Time: 15:35 [facility] 12/14 15:11 Order name: IV Saline Lock; Complete Time: 15:22 [facility] 12/14 15:11 Order name: Labs collected and sent; Complete Time: 15:22 [facility] 12/14 15:11 Order name: O2 Per Protocol; Complete Time: 15:22 [facility] 12/14 15:11 Order name: O2 Sat Monitoring; Complete Time: 15:22 [facility] 12/14 16:22 Order name: Transfuse; Complete Time: 17:28 madisyn Administered Medications: Discontinued: NS 0.9% 1000 ml IV at 125 ml/hr continuous 16:39 Drug: NS 0.9% 500 ml Route: IV; Rate: bolus; Site: left upper arm; sv 17:28 Follow up: Response: No adverse reaction; IV Status: Completed infusion; IV Intake: sv 500ml 16:39 Drug: ProTONIX 40 mg Route: IVP; Site: left upper arm; sv 17:28 Follow up: Response: No adverse reaction sv 17:29 Drug: NS 0.9% 1000 ml Route: IV; Rate: 125 ml/hr; Site: right upper arm; sv 21:00 Follow up: IV Status: Order to discontinue infusion tl1 18:42 Drug: Flagyl 500 mg Volume: 100 ml; Route: IVPB; Rate: 200 ml/hr; Infused Over: 30 sv mins; Site: left hand; 19:40 Follow up: IV Status: Completed infusion; IV Intake: 100ml tl1 18:43 Drug: NS 0.9% 1000 ml Route: IV; Rate: 1 bolus; Site: left hand; sv 19:41 Follow up: IV Status: Completed infusion tl1 19:41 Drug: Cipro 400 mg Volume: 200 ml; Route: IVPB; Infused Over: 60 mins; Site: left hand; tl1 20:53 Follow up: IV Status: Completed infusion; IV Intake: 200ml tl1 Point of Care Testing: Blood Glucose: 15:30 Blood Glucose: 353 mg/dL; sv Ranges: Critical Glucose Levels:Adult <50 mg/dl or >400 mg/dl <40 mg/dl or >180 mg/dl Disposition: 12/14/18 16:[address] [facility]. Diagnosis are Gastrostomy status, Gastrostomy complication, unspecified - bleeding, Unspecified kidney failure, Dehydration, Anemia, unspecified. - Reason for transfer: Higher level of care. - Accepting physician is to [facility]. - Condition is Fair. - Problem is new. - Symptoms have improved. Signatures: Dispatcher [employer] Tammy Brown RN Surinder Rico MD MD cha Lasagna, Tonya RN RN tl1 Corrections: (The following items were deleted from the chart) 16:36 16:32 12/14/2018 16:[address] [facility]. Diagnosis is [facility] Gastrostomy status; Gastrostomy complication, unspecified - bleeding. Reason for transfer: Higher level of care. Accepting physician is to [facility]. Condition is Fair. Problem is new. Symptoms have improved. [facility] 21:52 16:36 12/14/2018 16:[address] [facility]. Diagnosis is tl1 Gastrostomy status; Gastrostomy complication, unspecified - bleeding; Unspecified kidney failure; Dehydration; Anemia, unspecified. Reason for transfer: Higher level of care. Accepting physician is to [facility]. Condition is Fair. Problem is new. Symptoms have improved. madisyn
--- NOTE | 2018-12-14 16:32 | ER ---
Nurse's Notes [facility] [place] Name: Leonardo Kumari Age: 78 yrs Sex: Male : 1940 Arrival Date: 12/14/2018 Time: 14:55 Bed 5 Private MD: Diagnosis: Gastrostomy status;Gastrostomy complication, unspecified-bleeding;Unspecified kidney failure;Dehydration;Anemia, unspecified Presentation: 12/14 14:41 Acuity: [place] 2 sv 14:41 Presenting complaint: EMS states: called out for pt at [place], bleeding from old PEG sv tube site that started today, staff has gone through 13 abd pads. BP 131/76 HR-126 RR-16. Transition of care: patient was received from another setting of care (long-term care facility), [facility]. Onset of symptoms was December 14, 2018. Risk Assessment: Do you want to hurt yourself or someone else? Patient reports no desire to harm self or others. Care prior to arrival: None. 14:41 Method Of Arrival: EMS: [facility] sv 14:50 Initial Sepsis Screen: Does the patient meet any 2 criteria? HR > 90 bpm. Does the sv patient have a suspected source of infection? Yes: Skin breakdown/wound. Triage Assessment: 14:45 General: Appears in no apparent distress. uncomfortable, Behavior is calm, cooperative. sv Pain: Complains of pain in abdomen Is intermittent. Neuro: Level of Consciousness is awake, alert, obeys commands, confused, Oriented to person, arm and legs contracted. Respiratory: Airway is patent Respiratory effort is even, unlabored, Respiratory pattern is regular, symmetrical. GI: Site with drainage. J-tube is not sutured to pt. Pt's old PEG tube site is bleeding under the abd pads placed by [facility] staff. : Pt has urine noted in his diaper. Derm: Skin is normal. Historical: - Allergies: 15:06 Ibuprofen; sv 15:06 Stadol; sv 15:06 Versed; sv - PMHx: 15:06 Allergic rhinitis; Aphasia; constipation; Contracture; Dementia; Depression; Diabetes - sv NIDDM; DYSPHAGIA; GERD; GI Bleed; Hemiplegia/hemiparesis; High Cholesterol; Hypertension; hypotension; MRSA; Paraplegia; UTI; - PSHx: 15:06 Unable to obtain; sv - Immunization history:: Adult Immunizations up to date. - Social history:: Smoking status: Patient/guardian denies using tobacco. - Family history:: not pertinent. - Ebola Screening: : No symptoms or risks identified at this time. Screenin:00 Abuse screen: Denies threats or abuse. Denies injuries from another. Nutritional sv screening: No deficits noted. Tuberculosis screening: No symptoms or risk factors identified. Fall Risk None identified. Assessment: 15:00 Reassessment: Dr Salcedo at the bedside, using silver nitrate and surgicele to stop sv the bleeding at the site. Bleeding has subsided and 4x4 gauze and abd pad placed on site with foam tape. 15:00 Derm: Bruising that is dark purple, on left upper quadrant and left lower quadrant. sv 16:39 Reassessment: Patient appears in no apparent distress at this time. No changes from sv previously documented assessment. Patient and/or family updated on plan of care and expected duration. Pain level reassessed. 17:15 Reassessment: Over the phone consent received from Shital Kumari (sister) for pt to sv receive a blood transfusion, she has POA. 17:29 Reassessment: Patient appears in no apparent distress at this time. No changes from sv previously documented assessment. Patient and/or family updated on plan of care and expected duration. Pain level reassessed. 18:03 Reassessment: Patient appears in no apparent distress at this time. No changes from sv previously documented assessment. Patient and/or family updated on plan of care and expected duration. Pain level reassessed. 1st unit of PRBCs infusing at this time. No adverse reactions noted. Will continue to monitor. 18:40 Reassessment: Patient appears in no apparent distress at this time. No changes from sv previously documented assessment. Patient and/or family updated on plan of care and expected duration. Pain level reassessed. 21:45 Reassessment: No changes from previously documented assessment. Patient and/or family tl1 updated on plan of care and expected duration. Pain level reassessed. Patient denies pain at this time. 21:46 Reassessment: Blood transfusion transferred to [facility] after first 15 minutes tl1 completed. Vital Signs: 14:43 BP 160 / 78; Pulse 114; Resp 20; Temp 98.1(O); Weight 77 kg; Pain 0/10; sv 15:30 BP 146 / 70; Pulse 112; Resp 16; Pulse Ox 97% ; sv 16:00 BP 150 / 66; Pulse 107; Resp 18; Pulse Ox 100% on R/A; sv 16:30 BP 146 / 97; Pulse 110; Resp 23; Pulse Ox 100% on R/A; sv 17:35 BP 143 / 83; Pulse 106; Resp 20; Temp 97.2; Pulse Ox 100% on R/A; sv 17:45 BP 143 / 74; Pulse 107; Resp 21; Temp 97.3; Pulse Ox 100% on R/A; sv 17:55 BP 130 / 63; Pulse 104; Resp 17; Temp 97.3; Pulse Ox 100% on R/A; sv 18:10 BP 131 / 65; Pulse 104; Resp 16; Temp 97.1; Pulse Ox 100% on R/A; sv 18:40 BP 130 / 68; Pulse 103; Resp 15; Temp 97.5; Pulse Ox 100% on R/A; sv 19:23 BP 148 / 65; Pulse 105; Resp 15; Pulse Ox 100% on R/A; Pain 0/10; tl1 21:44 BP 143 / 61; Pulse 94; Resp 22; Temp 97.8; Pulse Ox 100% on R/A; Pain 0/10; tl1 ED Course: 14:50 Arm band placed on. sv 14:55 Patient arrived in ED. jr8 15:00 Patient has correct armband on for positive identification. Placed in gown. Bed in low sv position. Call light in reach. Side rails up X2. equipment monitor phototypesetting on. Pulse ox on. NIBP on. Head of bed elevated. 15:01 Tammy Cummings, VIVIEN is Primary Nurse. sv 15:02 Surinder Salcedo MD is Attending Physician. madisyn 15:03 Triage completed. sv 15:15 Initial lab(s) drawn, by me, sent to lab. First set of blood cultures drawn by me. sv Inserted saline lock: 20 gauge in right upper arm, using aseptic technique. Blood collected. Flushed right with 5 ml normal saline. 15:22 Basic Metabolic Panel Sent. sv 15:33 XRAY Chest (1 view) In Process Unspecified. EDMS 15:36 CBC with Diff Sent. sv 15:36 LFT's Sent. sv 15:40 EKG done, by detail technician. reviewed by Surinder Salcedo MD. sm3 16:42 Ledesma cath inserted, using sterile technique, 16 Fr., by primer charger, balloon inflated, to sv gravity drainage, urine specimen collected. returned cloudy urine. Patient tolerated well. 17:28 Bb Add On Sent. sv 17:41 Abdomen 1 View (KUB) XRAY In Process Unspecified. EDMS 18:40 Inserted saline lock: 24 gauge in left hand, using aseptic technique. Flushed left hand sv with 5 ml normal saline. 19:10 Report given to Sandy PUGA. sv 21:48 No provider procedures requiring assistance completed. Patient transferred, IV remains tl1 in place. Administered Medications: Discontinued: NS 0.9% 1000 ml IV at 125 ml/hr continuous 16:39 Drug: NS 0.9% 500 ml Route: IV; Rate: bolus; Site: left upper arm; sv 17:28 Follow up: Response: No adverse reaction; IV Status: Completed infusion; IV Intake: sv 500ml 16:39 Drug: ProTONIX 40 mg Route: IVP; Site: left upper arm; sv 17:28 Follow up: Response: No adverse reaction sv 17:29 Drug: NS 0.9% 1000 ml Route: IV; Rate: 125 ml/hr; Site: right upper arm; sv 21:00 Follow up: IV Status: Order to discontinue infusion tl1 18:42 Drug: Flagyl 500 mg Volume: 100 ml; Route: IVPB; Rate: 200 ml/hr; Infused Over: 30 sv mins; Site: left hand; 19:40 Follow up: IV Status: Completed infusion; IV Intake: 100ml tl1 18:43 Drug: NS 0.9% 1000 ml Route: IV; Rate: 1 bolus; Site: left hand; sv 19:41 Follow up: IV Status: Completed infusion tl1 19:41 Drug: Cipro 400 mg Volume: 200 ml; Route: IVPB; Infused Over: 60 mins; Site: left hand; tl1 20:53 Follow up: IV Status: Completed infusion; IV Intake: 200ml tl1 Point of Care Testing: Blood Glucose: 15:30 Blood Glucose: 353 mg/dL; sv Ranges: Intake: 17:28 IV: 500ml; Total: 500ml. sv 19:40 IV: 100ml; Total: 600ml. tl1 20:53 IV: 200ml; Total: 800ml. tl1 21:47 PO: 0ml; IV: 275ml (Blood Products); Total: 1075ml. tl1 21:47 IV: 1300ml (IV Fluid); Total: 2375ml. tl1 Output: 16:30 Urine: 500ml (Ledesma); Total: 500ml. sv 21:47 Urine: 700ml (Ledesma); Total: 1200ml. tl1 Outcome: 16:32 ER care complete, transfer ordered by . madisyn 19:05 Transferred by ground EMS to [facility], Transfer form completed. sv X-rays sent w/ patient. Note: Report given to Genoveva PUGA at [facility]. 19:05 Condition: stable 19:05 Instructed on the need for transfer. 21:50 Transferred by ground EMS Note: [facility] transporting patient to [facility] tl1 21:52 Patient left the ED. tl1 Signatures: Dispatcher [employer] Tammy Brown RN RN sv Anderson, Corey, MD MD cha Roszak, Josh, PA PA jr8 Sandy Martinez RN RN tl1 Skyla Pan 3 Corrections: (The following items were deleted from the chart) 15:32 14:43 BP 160 / 78; Pulse 114bpm; Resp 20bpm; Pain 0/10; sv sv 17:30 14:43 BP 160 / 78; Pulse 114bpm; Resp 20bpm; Temp 98.1F Oral; Pain 0/10; sv sv 18:05 15:00 Reassessment: Dr Salcedo at the bedside, using silver nitrate and surgicele to sv stop the bleeding at the site. sv 18:05 15:00 Reassessment: Dr Salcedo at the bedside, using silver nitrate and surgicele to sv stop the bleeding at the site. Bleeding has subsided and 4x4 gauze and abd pad placed on site with foam tape. sv
[2018-12-14] MEDS ORDERED: NA CHLORIDE 0.9% 1,000 ML ONE (16:39)
[2018-12-14] MEDS ORDERED: PANTOPRAZOLE 40 MG INJ ONE (16:39)
--- NOTE | 2018-12-14 16:42 | EKG ---
Test Date: 2018-12-14 Test Time: 15:32:16 Cutting Table Operator First: BABAK-Sage MEASUREMENT RESULTS: Intervals: Rate: 109 MA: 134 QRSD: 82 QT: 326 QTc: 439 Sterling: P: 69 MA: 134 QRS: -13 T: 85 INTERPRETIVE STATEMENTS: Sinus tachycardia with premature supraventricular complexes Low voltage QRS Inferior infarct, age undetermined Cannot rule out Anterior infarct, age undetermined Abnormal ECG Compared to ECG 08/10/2018 10:28:56 Atrial premature complex(es) now present Sinus rhythm no longer present Myocardial infarct finding still present Electronically Signed On 12-14-18 16:42:23 CDT by Malik Oshea
[2018-12-14 17:03] LABS: Urine Blood NEGATIVE (NEG); Urine Glucose 2+ (NEG); Urine Protein 3+ (NEG); Urine Specific Gravity 1.025 (1.005-1.030)
[2018-12-14] MEDS ORDERED: NA CHLORIDE 0.9% 250 ML ONE ×2 (17:38→21:30)
[2018-12-14 17:41] LABS: Urine Bacteria >50 /HPF (NONE SEEN); Urine Culture Reflex Order REFLEXED; Urine RBC NONE SEEN /HPF (NONE SEEN)
--- NOTE | 2018-12-14 17:57 | RAD REPORT ---
EXAM DESCRIPTION: RAD - Abdomen 1 View (KUB) - 12/14/2018 5:40 pm CLINICAL HISTORY: ABD PAIN Pain COMPARISON: Abdomen 1 View (KUB) dated 01/29/2017; Abdomen 1 View (KUB) dated 12/17/2016; ABDOMEN 1 VIE W KUB dated 07/07/2014 FINDINGS: The bowel gas pattern is non-obstructive. No evidence of free air or pneumatosis. Contrast is present in the colon with numerous diverticula seen.
[2018-12-14] MEDS ORDERED: CIPROFLOXACIN 400mg IV 400 MG/200 ML BAG IV ONE (18:52)
[2018-12-14] MEDS ORDERED: METRONIDAZOLE 500mg IVPB 500 MG/100 ML BAG IV ONE (18:52)
[2018-12-14 22:12] VITALS: O2SAT 100
[2018-12-14 22:24] VITALS: BP 143/61; TEMP 97.8
== END 2018-12-14 21:52 | disposition short-term general hospital (02) ==
LOC: ER 14:44
DX: K94.21 Gastrostomy hemorrhage (principal); Z43.1 Encounter for attention to gastrostomy; N19 Unspecified kidney failure; E86.0 Dehydration; D64.9 Anemia, unspecified; I10 Essential (primary) hypertension; E78.00 Pure hypercholesterolemia, unspecified; Z88.5 Allergy status to narcotic agent; Z88.6 Allergy status to analgesic agent; Z88.8 Allergy status to other drugs, medicaments and biological substances
CPT/HCPCS: 96365; 96367; 96361; 93005; 87040; 87088; 85025; 87086; 80048; 36415; 86900; 83735; 86850; 85610; 86901; 82962; 80076; 83605; 87077; 87186; 84484; 83690; 83880; 74018; 71045; 51702; 96375; 99285; C9113; P9016 ×2; J7030; J0744; 81003; 81015

== ENCOUNTER 2018-12-24 02:15 | Emergency (ER) | payer OTHER ==
--- OUTSIDE RECORDS SUMMARY | 2018-12-24 02:18 | XMS REPORT | Clinical Summary ---
:1940 Author Organization [facility] Address [address] [place] [address] Care Team Providers Name Role Phone Cielo Alejandro Primary Care Provider Allergies Active Allergy Reactions Severity Noted Date Comments Butorphanol Tartrate 07/12/2018 Midazolam 07/12/2018 Medications Medication Sig Dispensed Refills Start End Status Date Date amLODIPine Take 5 mg by mouth 0 Active (NORVASC) 5 MG daily Hold if tablet BP<110/60 P<60 . aspirin 81 MG EC Take 81 mg by 0 Active tablet mouth daily. atorvastatin Take 80 mg by 0 Active (LIPITOR) 80 MG mouth nightly. tablet carvedilol (COREG) Take 25 mg by 0 Active 25 MG tablet mouth nightly Hold if BP ,110/60 P,60. . clopidogrel Take 75 mg by 0 Active (PLAVIX) 75 mg mouth daily. tablet docusate (COLACE) Take 50 mg by 0 Active 50 mg/5 mL liquid mouth daily. docusate sodium Take 100 mg by 0 Active (COLACE) 100 MG mouth 2 (two) capsule times daily. multivitamin per Take 1 tablet by 0 Active tablet mouth daily. PARoxetine (PAXIL) Take 10 mg by 0 Active 10 MG tablet mouth every morning. famotidine (PEPCID) Take 40 mg by 0 Active 40 MG tablet mouth daily. traMADol (ULTRAM) Take 50 mg by 0 Active 50 mg tablet mouth every 6 (six) hours. cyclobenzaprine Take 10 mg by 0 Active (FLEXERIL) 10 MG mouth every 8 tablet (eight) hours as needed for Muscle spasms. insulin detemir Inject 10 Units 0 Active U-100 (LEVEMIR) 100 subcutaneously unit/mL (3 mL) InPn every morning. injection ascorbic acid, Take 1 tablet (500 30 tablet 0 vitamin C, (VITAMIN mg total) by mouth 8 019 C) 500 MG tablet daily for 30 days. atorvastatin Take 1 tablet (80 30 tablet 0 (LIPITOR) 80 MG mg total) by mouth 8 019 tablet nightly for 30 days. cyclobenzaprine Take 1 tablet (10 30 tablet 0 (FLEXERIL) 10 MG mg total) by mouth 8 019 tablet 3 (three) times daily as needed for Muscle spasms for up to 10 days. doxycycline Take 1 capsule 14 capsule 0 (MONODOX) 100 MG (100 mg total) by 8 018 capsule mouth every 12 (twelve) hours for 7 days. PARoxetine (PAXIL) Take 1 tablet (10 30 tablet 0 10 MG tablet mg total) by mouth 8 019 daily for 30 days. zinc sulfate Take 1 capsule 30 capsule 0 (ZINCATE) 220 (50) (220 mg total) by 8 019 mg capsule mouth daily for 30 days. pantoprazole Take 1 tablet (40 30 tablet 0 (PROTONIX) 40 MG mg total) by mouth 8 019 tablet daily for 30 days. aspirin 81 MG Take 1 tablet (81 30 tablet 0 chewable tablet mg total) by mouth 8 019 daily for 30 days. hydrALAZINE Take 25 mg by 0 Discontinued (APRESOLINE) 25 MG mouth every 8 019 tablet (eight) hours Hold if SBP<110, HR<60 . Active Problems Problem Noted Date Bleeding from gastrostomy tube site 12/15/2018 Heel ulcer 08/10/2018 CVA, old, aphasia 08/10/2018 Dysphagia as late effect of cerebrovascular accident (CVA) 08/10/2018 Severe protein-calorie malnutrition 08/10/2018 Physical deconditioning 08/10/2018 Infection of PEG site 07/12/2018 Anemia 07/12/2018 GI bleed 07/11/2018 Encounters Date Type Specialty Care Team Description 12/14/2018 [facility] Internal Silas Joyner Anemia, unspecified type (Primary Dx); - Encounter Medicine Hood RODRIGUEZ MD Bleeding from gastrostomy tube site (HCC); 12/19/2018 Marino Schmidt, CVA, old, aphasia; MD Physical deconditioning; Skin infection at gastrostomy tube site (HCC) 08/10/2018 [facility] Internal Tirukkovalluri, Anemia, unspecified - Encounter Medicine MD Kiersten type 08/11/2018 Silas Joyner III, MD 07/13/2018 Surgery Gastroenterology Malik Gonsales UPPER ENDOSCOPY MD Juan Manuel 07/13/2018 Anesthesia Event Gastroenterology Mita Banuelos MD 07/11/2018 [facility] Internal GelaMyrna Gastrointestinal hemorrhage associated with gastrojejunal ulcer; - Encounter Medicine MD Ama Abdominal wall cellulitis; 07/15/2018 Jimmy, History of CVA with residual deficit; [place] Severe protein-calorie malnutrition (HCC); MD Daniel Sacral decubitus ulcer, stage III (HCC); Deana Ledezma Blood loss anemia; MD Pippa Gastrointestinal hemorrhage, unspecified gastrointestinal hemorrhage type after 12/23/2017 Social History Tobacco Use Types Packs/Day Years Used Date Unknown If Ever Smoked Sex Assigned at Date Recorded Not on file Job Start Date Occupation Industry Not on file Not on file Not on file Travel History Travel Start Travel End No recent travel history available. Last Filed Vital Signs Vital Sign Reading Time Taken Blood Pressure 152/70 12/19/2018 7:32 AM CDT Pulse 91 12/19/2018 7:32 AM CDT Temperature 36.3 C (97.3 F) 12/19/2018 7:32 AM CDT Respiratory Rate 19 12/19/2018 7:32 AM CDT Oxygen Saturation 100% 12/19/2018 7:32 AM CDT Inhaled Oxygen Concentration 21% 07/14/2018 3:52 PM MAINTENANCE REPRESENTATIVE Weight 60.8 kg (134 lb 0.6 oz) 08/10/2018 5:00 PM MAINTENANCE REPRESENTATIVE Height - - Body Mass Index - - Plan of Treatment Not on file Procedures Procedure Name Priority Date/Time Associated Comments Diagnosis POCT-GLUCOSE METER Routine 12/19/2018 6:05 Results for this AM CDT procedure are in the results section. CBC W/PLT COUNT & AUTO Routine 12/19/2018 5:15 Results for this DIFFERENTIAL AM CDT procedure are in the results section. BASIC METABOLIC PANEL Routine 12/19/2018 5:15 Results for this (7) AM CDT procedure are in the results section. CBC W/PLT COUNT & AUTO Routine 12/19/2018 5:15 Results for this DIFFERENTIAL AM CDT procedure are in the results section. POCT-GLUCOSE METER Routine 12/19/2018 12:39 Results for this AM CDT procedure are in the results section. POCT-GLUCOSE METER Routine 12/18/2018 5:58 Results for this PM CDT procedure are in the results section. POCT-GLUCOSE METER Routine 12/18/2018 12:47 Results for this PM CDT procedure are in the results section. IR GASTROSTOMY TUBE KRISTIE 12/18/2018 11:35 Results for this REPLACEMENT W FLUORO AM CDT procedure are in the results section. POCT-GLUCOSE METER Routine 12/18/2018 7:43 Results for this AM CDT procedure are in the results section. POCT-GLUCOSE METER Routine 12/18/2018 6:31 Results for this AM CDT procedure are in the results section. CBC W/PLT COUNT & AUTO Routine 12/18/2018 4:22 Results for this DIFFERENTIAL AM CDT procedure are in the results section. PROTHROMBIN TIME/INR Routine 12/18/2018 4:22 Results for this AM CDT procedure are in the results section. VANCOMYCIN LEVEL, Routine 12/18/2018 4:22 Results for this RANDOM AM CDT procedure are in the results section. CREATININE Routine 12/18/2018 4:22 Results for this AM CDT procedure are in the results section. CBC W/PLT COUNT & AUTO Routine 12/18/2018 4:22 Results for this DIFFERENTIAL AM CDT procedure are in the results section. POCT-GLUCOSE METER Routine 12/17/2018 11:40 Results for this PM CDT procedure are in the results section. POCT-GLUCOSE METER Routine 12/17/2018 6:25 Results for this PM CDT procedure are in the results section. POCT-GLUCOSE METER Routine 12/17/2018 12:39 Results for this PM CDT procedure are in the results section. POCT-GLUCOSE METER Routine 12/17/2018 6:29 Results for this AM CDT procedure are in the results section. CBC W/PLT COUNT & AUTO Routine 12/17/2018 4:52 Results for this DIFFERENTIAL AM CDT procedure are in the results section. VANCOMYCIN LEVEL, Timed 12/17/2018 4:52 Results for this TROUGH AM CDT procedure are in the results section. CBC W/PLT COUNT & AUTO Routine 12/17/2018 4:52 Results for this DIFFERENTIAL AM CDT procedure are in the results section. BASIC METABOLIC PANEL Routine 12/17/2018 4:52 Results for this (7) AM CDT procedure are in the results section. POCT-GLUCOSE METER Routine 12/16/2018 11:39 Results for this PM CDT procedure are in the results section. POCT-GLUCOSE METER Routine 12/16/2018 5:27 Results for this PM CDT procedure are in the results section. POCT-GLUCOSE METER Routine 12/16/2018 11:45 Results for this AM CDT procedure are in the results section. POCT-GLUCOSE METER Routine 12/16/2018 5:26 Results for this AM CDT procedure are in the results section. CBC W/PLT COUNT & AUTO Routine 12/16/2018 4:14 Results for this DIFFERENTIAL AM CDT procedure are in the results section. CBC W/PLT COUNT & AUTO Routine 12/16/2018 4:14 Results for this DIFFERENTIAL AM CDT procedure are in the results section. BASIC METABOLIC PANEL Routine 12/16/2018 4:14 Results for this (7) AM CDT procedure are in the results section. POCT-GLUCOSE METER Routine 12/16/2018 2:07 Results for this AM CDT procedure are in the results section. POCT-GLUCOSE METER Routine 12/16/2018 12:45 Results for this AM CDT procedure are in the results section. POCT-GLUCOSE METER Routine 12/15/2018 11:43 Results for this PM CDT procedure are in the results section. POCT-GLUCOSE METER Routine 12/15/2018 5:58 Results for this PM CDT procedure are in the results section. CT ABDOMEN/PELVIS KRISTIE 12/15/2018 5:00 Results for this WITHOUT IV CONTRAST PM CDT procedure are in the results section. BLOOD CULTURE Routine 12/15/2018 1:08 Results for this PM CDT procedure are in the results section. CBC W/PLT COUNT & AUTO Routine 12/15/2018 1:07 Results for this DIFFERENTIAL PM CDT procedure are in the results section. CBC W/PLT COUNT & AUTO Routine 12/15/2018 1:07 Results for this DIFFERENTIAL PM CDT procedure are in the results section. POCT-GLUCOSE METER Routine 12/15/2018 11:31 Results for this AM CDT procedure are in the results section. POCT-GLUCOSE METER Routine 12/15/2018 6:38 Results for this AM CDT procedure are in the results section. CBC W/PLT COUNT & AUTO Routine 12/15/2018 4:56 Results for this DIFFERENTIAL AM CDT procedure are in the results section. CBC W/PLT COUNT & AUTO Routine 12/15/2018 4:56 Results for this DIFFERENTIAL AM CDT procedure are in the results section. BASIC METABOLIC PANEL Routine 12/15/2018 4:56 Results for this (7) AM CDT procedure are in the results section. LACTIC ACID, VENOUS Routine 12/15/2018 4:56 Results for this AM CDT procedure are in the results section. URINALYSIS W/ REFLEX Routine 12/15/2018 3:12 Results for this URINE CULTURE AM CDT procedure are in the results section. URINE CULTURE Routine 12/15/2018 3:12 Results for this AM CDT procedure are in the results section. POCT-GLUCOSE METER Routine 12/15/2018 12:35 Results for this AM CDT procedure are in the results section. RHYTHM STRIP - SCAN 10/15/2018 9:20 AM CDT HEMOGLOBIN AND Routine 08/11/2018 12:31 Results for this HEMATOCRIT PM MAINTENANCE REPRESENTATIVE procedure are in the results section. POCT-GLUCOSE METER Routine 08/11/2018 11:51 Results for this AM MAINTENANCE REPRESENTATIVE procedure are in the results section. POCT-GLUCOSE METER Routine 08/11/2018 6:16 Results for this AM MAINTENANCE REPRESENTATIVE procedure are in the results section. CBC W/PLT COUNT & AUTO Routine 08/11/2018 1:57 Results for this DIFFERENTIAL AM MAINTENANCE REPRESENTATIVE procedure are in the results section. CBC W/PLT COUNT & AUTO Routine 08/11/2018 1:57 Results for this DIFFERENTIAL AM MAINTENANCE REPRESENTATIVE procedure are in the results section. PHOSPHORUS Routine 08/11/2018 1:57 Results for this AM MAINTENANCE REPRESENTATIVE procedure are in the results section. MAGNESIUM Routine 08/11/2018 1:57 Results for this AM MAINTENANCE REPRESENTATIVE procedure are in the results section. CALCIUM, IONIZED Routine 08/11/2018 1:57 Results for this AM MAINTENANCE REPRESENTATIVE procedure are in the results section. HEMOGLOBIN A1C Routine 08/11/2018 1:57 Results for this AM MAINTENANCE REPRESENTATIVE procedure are in the results section. BASIC METABOLIC PANEL Routine 08/11/2018 1:57 Results for this (7) AM MAINTENANCE REPRESENTATIVE procedure are in the results section. HEMOGLOBIN AND Routine 08/11/2018 1:57 Results for this HEMATOCRIT AM MAINTENANCE REPRESENTATIVE procedure are in the results section. POCT-GLUCOSE METER Routine 08/11/2018 1:35 Results for this AM MAINTENANCE REPRESENTATIVE procedure are in the results section. POCT-GLUCOSE METER Routine 08/10/2018 10:54 Results for this PM MAINTENANCE REPRESENTATIVE procedure are in the results section. CBC W/PLT COUNT & AUTO STAT 08/10/2018 6:20 Results for this DIFFERENTIAL PM MAINTENANCE REPRESENTATIVE procedure are in the results section. HEMOGLOBIN AND Routine 08/10/2018 6:20 Results for this HEMATOCRIT PM MAINTENANCE REPRESENTATIVE procedure are in the results section. HEMOGLOBIN A1C AP Routine 08/10/2018 6:20 Results for this PM MAINTENANCE REPRESENTATIVE procedure are in the results section. PHOSPHORUS STAT 08/10/2018 6:20 Results for this PM MAINTENANCE REPRESENTATIVE procedure are in the results section. MAGNESIUM STAT 08/10/2018 6:20 Results for this PM MAINTENANCE REPRESENTATIVE procedure are in the results section. COMPREHENSIVE STAT 08/10/2018 6:20 Results for this METABOLIC PANEL PM MAINTENANCE REPRESENTATIVE procedure are in the results section. CBC W/PLT COUNT & AUTO STAT 08/10/2018 6:20 Results for this DIFFERENTIAL PM MAINTENANCE REPRESENTATIVE procedure are in the results section. POCT-GLUCOSE METER Routine 08/10/2018 4:38 Results for this PM MAINTENANCE REPRESENTATIVE procedure are in the results section. RHYTHM STRIP - SCAN 08/02/2018 8:20 AM MAINTENANCE REPRESENTATIVE TRANSFUSION SERVICE 07/16/2018 6:01 REPORT - SCAN PM MAINTENANCE REPRESENTATIVE PREPARE LEUKO-REDUCED Routine 07/15/2018 11:54 Results for this RBC PM MAINTENANCE REPRESENTATIVE procedure are in the results section. TRANSFUSION SERVICE 07/15/2018 6:01 REPORT - SCAN PM MAINTENANCE REPRESENTATIVE POCT-GLUCOSE METER Routine 07/15/2018 8:18 Results for this AM MAINTENANCE REPRESENTATIVE procedure are in the results section. CBC W/PLT COUNT & AUTO Routine 07/15/2018 7:11 Results for this DIFFERENTIAL AM MAINTENANCE REPRESENTATIVE procedure are in the results section. BASIC METABOLIC PANEL Routine 07/15/2018 7:11 Results for this (7) AM MAINTENANCE REPRESENTATIVE procedure are in the results section. HAPTOGLOBIN Routine 07/15/2018 7:11 Results for this AM MAINTENANCE REPRESENTATIVE procedure are in the results section. CBC W/PLT COUNT & AUTO Routine 07/15/2018 7:11 Results for this DIFFERENTIAL AM MAINTENANCE REPRESENTATIVE procedure are in the results section. POCT-GLUCOSE METER Routine 07/15/2018 6:37 Results for this AM MAINTENANCE REPRESENTATIVE procedure are in the results section. POCT-GLUCOSE METER Routine 07/14/2018 11:36 Results for this PM MAINTENANCE REPRESENTATIVE procedure are in the results section. POCT-GLUCOSE METER Routine 07/14/2018 5:23 Results for this PM MAINTENANCE REPRESENTATIVE procedure are in the results section. BASIC METABOLIC PANEL Routine 07/14/2018 3:47 Results for this (7) PM MAINTENANCE REPRESENTATIVE procedure are in the results section. PERIPHERAL BLOOD SMEAR AP Routine 07/14/2018 3:47 Results for this - PATHOLOGIST REVIEW PM MAINTENANCE REPRESENTATIVE procedure are in the results section. RETICULOCYTE COUNT Routine 07/14/2018 3:47 Results for this PM MAINTENANCE REPRESENTATIVE procedure are in the results section. CBC W/PLT COUNT & AUTO Routine 07/14/2018 1:03 Results for this DIFFERENTIAL PM MAINTENANCE REPRESENTATIVE procedure are in the results section. HEPATIC FUNCTION PANEL Routine 07/14/2018 1:03 Results for this PM MAINTENANCE REPRESENTATIVE procedure are in the results section. CBC W/PLT COUNT & AUTO Routine 07/14/2018 1:03 Results for this DIFFERENTIAL PM MAINTENANCE REPRESENTATIVE procedure are in the results section. LACTATE DEHYDROGENASE Routine 07/14/2018 1:03 Results for this (LDH) PM MAINTENANCE REPRESENTATIVE procedure are in the results section. TRANSFUSE Routine 07/14/2018 12:32 LEUKO-REDUCED RED PM MAINTENANCE REPRESENTATIVE BLOOD CELLS POCT-GLUCOSE METER Routine 07/14/2018 12:01 Results for this PM MAINTENANCE REPRESENTATIVE procedure are in the results section. VANCOMYCIN LEVEL, Routine 07/14/2018 8:37 Results for this RANDOM AM MAINTENANCE REPRESENTATIVE procedure are in the results section. POCT-GLUCOSE METER Routine 07/14/2018 6:45 Results for this AM MAINTENANCE REPRESENTATIVE procedure are in the results section. CBC W/PLT COUNT & AUTO Routine 07/14/2018 6:10 Results for this DIFFERENTIAL AM MAINTENANCE REPRESENTATIVE procedure are in the results section. MAGNESIUM Routine 07/14/2018 6:10 Results for this AM MAINTENANCE REPRESENTATIVE procedure are in the results section. BASIC METABOLIC PANEL Routine 07/14/2018 6:10 Results for this (7) AM MAINTENANCE REPRESENTATIVE procedure are in the results section. CBC W/PLT COUNT & AUTO Routine 07/14/2018 6:10 Results for this DIFFERENTIAL AM MAINTENANCE REPRESENTATIVE procedure are in the results section. POCT-GLUCOSE METER Routine 07/14/2018 1:16 Results for this AM MAINTENANCE REPRESENTATIVE procedure are in the results section. VANCOMYCIN LEVEL, Timed 07/13/2018 9:11 Results for this TROUGH PM MAINTENANCE REPRESENTATIVE procedure are in the results section. TRANSFUSION SERVICE 07/13/2018 6:03 REPORT - SCAN PM MAINTENANCE REPRESENTATIVE POCT-GLUCOSE METER Routine 07/13/2018 5:42 Results for this PM MAINTENANCE REPRESENTATIVE procedure are in the results section. POCT-GLUCOSE METER Routine 07/13/2018 3:39 Results for this PM MAINTENANCE REPRESENTATIVE procedure are in the results section. REPORT OF PROCEDURE - 07/13/2018 3:20 ENDOSCOPY URL PM MAINTENANCE REPRESENTATIVE UPPER ENDOSCOPY 07/13/2018 3:00 Melena PM MAINTENANCE REPRESENTATIVE POCT-GLUCOSE METER Routine 07/13/2018 11:58 Results for this AM MAINTENANCE REPRESENTATIVE procedure are in the results section. (CELLAVISION MANUAL Routine 07/13/2018 5:54 Results for this DIFF) AM MAINTENANCE REPRESENTATIVE procedure are in the results section. CBC W/PLT COUNT & AUTO Routine 07/13/2018 5:54 Results for this DIFFERENTIAL AM MAINTENANCE REPRESENTATIVE procedure are in the results section. MAGNESIUM Routine 07/13/2018 5:54 Results for this AM MAINTENANCE REPRESENTATIVE procedure are in the results section. BASIC METABOLIC PANEL Routine 07/13/2018 5:54 Results for this (7) AM MAINTENANCE REPRESENTATIVE procedure are in the results section. CBC W/PLT COUNT & AUTO Routine 07/13/2018 5:54 Results for this DIFFERENTIAL AM MAINTENANCE REPRESENTATIVE procedure are in the results section. POCT-GLUCOSE METER Routine 07/13/2018 5:49 Results for this AM MAINTENANCE REPRESENTATIVE procedure are in the results section. POCT-GLUCOSE METER Routine 07/13/2018 12:11 Results for this AM MAINTENANCE REPRESENTATIVE procedure are in the results section. POCT-GLUCOSE METER Routine 07/12/2018 6:40 Results for this PM MAINTENANCE REPRESENTATIVE procedure are in the results section. POCT-GLUCOSE METER Routine 07/12/2018 12:43 Results for this PM MAINTENANCE REPRESENTATIVE procedure are in the results section. ECG 12-LEAD Routine 07/12/2018 9:22 Results for this AM MAINTENANCE REPRESENTATIVE procedure are in the results section. POCT-GLUCOSE METER Routine 07/12/2018 7:37 Results for this AM MAINTENANCE REPRESENTATIVE procedure are in the results section. (CELLAVISION MANUAL Routine 07/12/2018 6:21 Results for this DIFF) AM MAINTENANCE REPRESENTATIVE procedure are in the results section. CBC W/PLT COUNT & AUTO Routine 07/12/2018 6:21 Results for this DIFFERENTIAL AM MAINTENANCE REPRESENTATIVE procedure are in the results section. TYPE AND SCREEN, Routine 07/12/2018 6:21 Results for this AUTOMATED AM MAINTENANCE REPRESENTATIVE procedure are in the results section. MAGNESIUM Routine 07/12/2018 6:21 Results for this AM MAINTENANCE REPRESENTATIVE procedure are in the results section. BASIC METABOLIC PANEL Routine 07/12/2018 6:21 Results for this (7) AM MAINTENANCE REPRESENTATIVE procedure are in the results section. CBC W/PLT COUNT & AUTO Routine 07/12/2018 6:21 Results for this DIFFERENTIAL AM MAINTENANCE REPRESENTATIVE procedure are in the results section. after 12/23/2017 Results POC-Glucose meter (12/19/2018 6:05 AM CDT)Only the most recent of41 resultswithin the time period is included. POC-Glucose Meter 135 (H)Comment: TESTED AT 70 - 110 mg/dL [place] [id number] [facility] [id number] Specimen Blood Performing Organization Address City/State/Zipcode Phone Number [address] [phone] CENTER CBC with platelet count + automated diff (12/19/2018 5:15 AM CDT)Only the most recent of13 resultswithin the time period is included. WBC 8.1 3.5 - 10.5 K/L [facility] RBC 3.47 (L) 4.63 - 6.08 M/L [facility] Hemoglobin 9.9 (L) 13.7 - 17.5 GM/DL [facility] Hematocrit 32.1 (L) 40.1 - 51.0 % [facility] MCV 92.5 (H) 79.0 - 92.2 fL [facility] MCH 28.5 25.7 - 32.2 pg [facility] MCHC 30.8 (L) 32.3 - 36.5 GM/DL [facility] RDW 15.9 (H) 11.6 - 14.4 % [facility] Platelets 172 150 - 450 K/CU MM [facility] MPV 10.2 9.4 - 12.4 fL [facility] nRBC 0 0 - 0 /100 WBC [facility] % Neutros 72 % [facility] % Lymphs 14 % [facility] % Monos 10 % [facility] % Eos 4 % [facility] % Baso 0 % [facility] # Neutros 5.78 (H) 1.78 - 5.38 K/L [facility] # Lymphs 1.10 (L) 1.32 - 3.57 K/L [facility] # Monos 0.80 0.30 - 0.82 K/L [facility] # Eos 0.32 0.04 - 0.54 K/L [facility] # Baso 0.03 0.01 - 0.08 K/L [facility] Immature Granulocytes-Relative 0 0 - 1 % [facility] Specimen Blood Performing Organization Address City/State/Zipcode Phone Number [facility] [address] [place] [address] CENTER Basic Metabolic Panel (12/19/2018 5:15 AM CDT)Only the most recent of10 resultswithin the time period is included. Sodium 138 136 - 145 meq/L [facility] Potassium 4.0Comment: Specimen slightly 3.5 - 5.1 meq/L [facility] hemolyzed [facility] Chloride 110 (H) 98 - 107 meq/L [facility] CO2 24 22 - 29 meq/L [facility] BUN 13 7 - 21 mg/dL [facility] Creatinine 1.13Comment: Specimen 0.57 - 1.25 mg/dL [facility] slightly hemolyzed [facility] Glucose 110 (H) 70 - 105 mg/dL [facility] Calcium 7.5 (L) 8.4 - 10.2 mg/dL [facility] EGFR 76Comment: ESTIMATED GFR IS mL/min/1.73 sq m [facility] NOT ACCURATE CREATININE [facility] CLEARANCE IN PREDICTING GLOMERULAR FILTRATION RATE. ESTIMATED GFR IS NOT APPLICABLE FOR DIALYSIS PATIENTS. Specimen Blood Performing Organization Address City/State/Zipcode Phone Number [facility] [address] [place] [address] CENTER IR G-Tube Replacement w/Fluoro (12/18/2018 11:35 AM CDT) Specimen Narrative Performed At FINAL REPORT [facility] Jejunostomy catheter exchange History: Malfunctioning jejunostomy catheter. Modality: Fluoroscopy Sedation: None Anesthesia:Two percent Lidocaine without epinephrine. Approach:Existing right lower quadrant jejunostomy catheter Estimated blood loss:< 5 cc. Specimen: None. vertical boring mill operator: Santos Parish MD. Faculty Member: MD Jatin. Fluoroscopy Time: 0.9 min. Reference Air Kerma (Ka, r): 5.2 mGy. Technique: Informed written consent was obtained. Discussion of risks, benefits, and alternatives were made with the patient. The patient expressed understanding and agreed to proceed.A universal timeout was performed prior to starting the procedure.All elements maximal sterile barrier technique was utilized for this procedure, including utilization of sterile scrub solution for skin prep, a large sterile sheet to cover the areas of the patient that were not prepped, and hand hygiene, mask, head covering, and sterile gown for performing radiologist and scrub technologist. The patient had a right lower quadrant jejunostomy catheter in place with an extremely long axis internal portion measuring approximately 10 mL in length. The catheter was severed and a Berenstein catheter was inserted through the jejunostomy catheter. Contrast was injected which confirmed that the existing jejunostomy catheter within the jejunum. The catheter was then removed over a guidewire. A 14 Serbian ROSA jejunostomy catheter was advanced over a guidewire into the jejunum. Contrast injected through the feeding port demonstrated that the catheter is appropriately positioned. The retention balloon was inflated. The patient tolerated the procedure well. Impression: Technically successful uncomplicated exchange of a jejunostomy catheter. The catheter is ready for immediate use. Signed: Sanots Parish MD Report Verified Date/Time:12/18/2018 12:21:43 Reading Location: [place] [address] Angio Body Reading Room Procedure Note Interface, External Ris In - 12/18/2018 12:23 PM CDT FINAL REPORT Jejunostomy catheter exchange History: Malfunctioning jejunostomy catheter. Modality: Fluoroscopy Sedation: None Anesthesia: Two percent Lidocaine without epinephrine. Approach: Existing right lower quadrant jejunostomy catheter Estimated blood loss: < 5 cc. Specimen: None. vertical boring mill operator: Santos Parish MD. Faculty Member: MD Jatin. Fluoroscopy Time: 0.9 min. Reference Air Kerma (Ka, r): 5.2 mGy. Technique: Informed written consent was obtained. Discussion of risks, benefits, and alternatives were made with the patient. The patient expressed understanding and agreed to proceed. A universal timeout was performed prior to starting the procedure. All elements maximal sterile barrier technique was utilized for this procedure, including utilization of sterile scrub solution for skin prep, a large sterile sheet to cover the areas of the patient that were not prepped, and hand hygiene, mask, head covering, and sterile gown for performing radiologist and scrub technologist. The patient had a right lower quadrant jejunostomy catheter in place with an extremely long axis internal portion measuring approximately 10 mL in length. The catheter was severed and a Berenstein catheter was inserted through the jejunostomy catheter. Contrast was injected which confirmed that the existing jejunostomy catheter within the jejunum. The catheter was then removed over a guidewire. A 14 Serbian ROSA jejunostomy catheter was advanced over a guidewire into the jejunum. Contrast injected through the feeding port demonstrated that the catheter is appropriately positioned. The retention balloon was inflated. The patient tolerated the procedure well. Impression: Technically successful uncomplicated exchange of a jejunostomy catheter. The catheter is ready for immediate use. Signed: Santos Parish MD Report Verified Date/Time: 12/18/2018 12:21:43 Reading Location: [facility] P048 Angio Body Reading Room Performing Organization Address City/[facility] Phone Number GE RIS Prothrombin time/INR (12/18/2018 4:22 AM CDT) Protime 14.8 (H) 11.7 - 14.7 seconds [facility] INR 1.2 <=5.9 [facility] Specimen Blood Narrative Performed At RECOMMENDED COUMADIN/WARFARIN INR THERAPY [facility] RANGES STANDARD DOSE: 2.0 - 3.0 Includes: PROPHYLAXIS for venous thrombosis, systemic embolization; TREATMENT for venous thrombosis and/or pulmonary embolus. HIGH RISK: Target INR is 2.5-3.5 for patients with mechanical heart valves. Performing Organization Address [facility] Phone Number [address] [address] CENTER Creatinine (12/18/2018 4:22 AM CDT) Creatinine 1.24 0.57 - 1.25 mg/dL [facility] EGFR 69Comment: ESTIMATED GFR IS mL/min/1.73 sq m [facility] NOT ACCURATE CREATININE [facility] CLEARANCE IN PREDICTING GLOMERULAR FILTRATION RATE. ESTIMATED GFR IS NOT APPLICABLE FOR DIALYSIS PATIENTS. Specimen Blood Performing Organization Address [facility] Phone Number [address] [address] [phone] CENTER Vancomycin level, random (12/18/2018 4:22 AM CDT)Only the most recent of2 resultswithin the time period is included. Vancomycin Rm 17.5 ug/mL [facility] Specimen Blood Narrative Performed At Reference Range: No Normals [facility] Performing Organization Address [facility] Phone Number [address] [address] CENTER Vancomycin level, trough (12/17/2018 4:52 AM CDT)Only the most recent of2 resultswithin the time period is included. Vancomycin Tr 27.4 (H) 10.0 - 20.0 ug/mL [facility] Specimen Blood Narrative Performed At Draw 30 min prior to scheduled dose, HOLD if [facility] level > 20 mcg/mL, biju MILIAN. Performing Organization Address City/State/Zipcode Phone Number [facility] [address] [place] [address] [phone] abdomen/pelvis without iv contrast (12/15/2018 5:00 PM CDT) Specimen Narrative Performed At FINAL REPORT [facility] INDICATION: Pain at PEG tube and J-tube site. COMPARISON: None. TECHNIQUE: CT of the Abdomen and Pelvis WITHOUT intravenous contrast. Enteric contrast was not used. The exam was performed according to our department dose-optimization protocol, which includes automated exposure control, adjustments of mA and kV according to patient size. Iterative reconstructions are also sometimes employed. FINDINGS: There is a track for percutaneous gastrostomy tube but no tube itself. There is a jejunostomy tube from the right. Position of the tip of the jejunostomy tube is not determined in the absence of enteric contrast. No peritoneal free fluid or free air is demonstrated. No bowel obstruction. Increase in stool burden throughout the colon. There is fecal impaction with contrast in a distended rectum. Liver and spleen are unremarkable. Pancreas to the extent visualized unremarkable. Gallbladder is distended but there is no inflammatory change around the gallbladder. No biliary ductal dilatation demonstrated. No upper abdominal, retroperitoneal, or pelvic lymphadenopathy. Adrenal glands and kidneys are unremarkable. There is a transurethral balloon tipped catheter in the bladder. There is atherosclerosis of the abdominal aorta and iliac arteries without aneurysm. Lower thorax unremarkable. There is right posterior hip dislocation. Thoracolumbar multilevel degenerative changes noted. IMPRESSION: Tract for percutaneous gastrostomy tube but no tube itself. Jejunostomy tube from the right noted but tip not well demonstrated in the absence of contrast. Constipation and fecal impaction. 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 Signed: Ascencion Flores MD Report Verified Date/Time:12/15/2018 17:43:35 Reading Location: [facility] B1 C013Y CT Body Reading Room Procedure Note Interface, External Ris In - 12/15/2018 5:45 PM CDT FINAL REPORT INDICATION: Pain at PEG tube and J-tube site. COMPARISON: None. TECHNIQUE: CT of the Abdomen and Pelvis WITHOUT intravenous contrast. Enteric contrast was not used. The exam was performed according to our department dose-optimization protocol, which includes automated exposure control, adjustments of mA and kV according to patient size. Iterative reconstructions are also sometimes employed. FINDINGS: There is a track for percutaneous gastrostomy tube but no tube itself. There is a jejunostomy tube from the right. Position of the tip of the jejunostomy tube is not determined in the absence of enteric contrast. No peritoneal free fluid or free air is demonstrated. No bowel obstruction. Increase in stool burden throughout the colon. There is fecal impaction with contrast in a distended rectum. Liver and spleen are unremarkable. Pancreas to the extent visualized unremarkable. Gallbladder is distended but there is no inflammatory change around the gallbladder. No biliary ductal dilatation demonstrated. No upper abdominal, retroperitoneal, or pelvic lymphadenopathy. Adrenal glands and kidneys are unremarkable. There is a transurethral balloon tipped catheter in the bladder. There is atherosclerosis of the abdominal aorta and iliac arteries without aneurysm. Lower thorax unremarkable. There is right posterior hip dislocation. Thoracolumbar multilevel degenerative changes noted. IMPRESSION: Tract for percutaneous gastrostomy tube but no tube itself. Jejunostomy tube from the right noted but tip not well demonstrated in the absence of contrast. Constipation and fecal impaction. 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 Signed: Ascencion Flores MD Report Verified Date/Time: 12/15/2018 17:43:35 Reading Location: [facility] B1 C013Y CT Body Reading Room Performing Organization Address City/State/Zipcode Phone Number [facility] Blood Culture - Routine (Right Venipuncture) (12/15/2018 1:08 PM CDT) Result No growth in 5 days [facility] Specimen Blood Performing Organization Address City/State/Zipcode Phone Number [address] [place] [address] [facility] Lactic acid, venous (12/15/2018 4:56 AM CDT) Lactate, Venous 1.2Comment: Specimen 0.5 - 2.2 mmol/L [facility] slightly hemolyzed [facility] Specimen Blood Narrative Performed At Post transfusion [facility] Performing Organization Address City/State/Zipcode Phone Number [address] [address] [phone] [facility] Urinalysis w/Microscopic + Reflex to Culture (12/15/2018 3:12 AM CDT) Color, UA Light Yellow [facility] Clarity, UA Hazy [facility] Specific [place], UA 1.009 1.001 - 1.035 [facility] pH, UA 6.5 5.0 - 8.0 [facility] Protein, UA 100 mg/dL (A) Negative [facility] Glucose, UA 500 mg/dL (A) Negative [facility] Ketones, UA Negative Negative [facility] Bilirubin, UA Negative Negative [facility] Blood, UA Trace (A) Negative [facility] Nitrite, UA Negative Negative [facility] Leukocytes, UA Large (A) Negative [facility] Urobilinogen, UA 0.2 0.2 - 1.0 mg/dL [facility] RBC, UA 3 /HPF [facility] WBC, UA 33Comment: Wbc clumps /HPF [facility] Bacteria, UA Few [facility] Mucus Rare [facility] Hyaline Casts, UA 2 /LPF [facility] Specimen Source [facility] Specimen Urine Performing Organization Address City/[facility] Phone Number [address] [address] [place] Urine culture (12/15/2018 3:12 AM CDT) Result <10,000 col/mL skin danie [facility] Specimen Urine Performing Organization Address [facility] Phone Number [address] [address] [place] RHYTHM STRIP - SCAN (10/15/2018 9:20 AM CDT)Only the most recent of2 resultswithin the time period is included. Narrative Performed At Hemoglobin and hematocrit (08/11/2018 12:31 PM MAINTENANCE REPRESENTATIVE)Only the most recent of3 resultswithin the time period is included. Hemoglobin 9.2 (L) 13.7 - 17.5 GM/DL [facility] Hematocrit 30.1 (L) 40.1 - 51.0 % [facility] Specimen Blood Performing Organization Address [facility] Phone Number [address] [address] [phone] [place] Calcium, Ionized (08/11/2018 1:57 AM MAINTENANCE REPRESENTATIVE) Calcium, Ion 1.09 (L) 1.12 - 1.27 mmol/L [facility] pH, Blood 7.44 [facility] Specimen Blood Performing Organization Address City/[facility] Phone Number [address] [address] [phone] CENTER Phosphorus (08/11/2018 1:57 AM MAINTENANCE REPRESENTATIVE)Only the most recent of2 resultswithin the time period is included. Phosphorus 3.2 2.3 - 4.7 mg/dL [facility] Specimen Blood Performing Organization Address City/[facility] Phone Number [address] [phone] CENTER Magnesium (08/11/2018 1:57 AM MAINTENANCE REPRESENTATIVE)Only the most recent of5 resultswithin the time period is included. Magnesium 1.8 1.6 - 2.6 mg/dL [facility] Specimen Blood Performing Organization Address City/[facility]/Zipcode Phone Number [address] [phone] [place] Hemoglobin A1c (08/11/2018 1:57 AM MAINTENANCE REPRESENTATIVE)Only the most recent of2 resultswithin the time period is included. Hemoglobin A1C 6.4 (H) 4.3 - 6.1 % [facility] Specimen Blood Performing Organization Address City/[facility] Phone Number [address] [address] [place] Comprehensive metabolic panel (08/10/2018 6:20 PM MAINTENANCE REPRESENTATIVE) Protein, Total 7.4 6.0 - 8.3 gm/dL [facility] Albumin 2.1 (L) 3.5 - 5.0 g/dL [facility] Alkaline Phosphatase 142 40 - 150 U/L [facility] Total Bilirubin 0.2 0.2 - 1.2 mg/dL [facility] Sodium 136 136 - 145 meq/L [facility] Potassium 4.0 3.5 - 5.1 meq/L [facility] Chloride 102 98 - 107 meq/L [facility] CO2 29 22 - 29 meq/L [facility] BUN 27 (H) 7 - 21 mg/dL [facility] Creatinine 1.33 (H) 0.57 - 1.25 mg/dL [facility] Glucose 51 (L) 70 - 105 mg/dL [facility] Calcium 8.6 8.4 - 10.2 mg/dL [facility] AST 37 (H) 5 - 34 U/L [facility] ALT 27 6 - 55 U/L [facility] EGFR 63Comment: ESTIMATED GFR mL/min/1.73 sq m [facility] IS NOT ACCURATE [facility] CREATININE CLEARANCE IN PREDICTING GLOMERULAR FILTRATION RATE. ESTIMATED GFR IS NOT APPLICABLE FOR DIALYSIS PATIENTS. Specimen Blood Performing Organization Address City/[facility] Phone Number [address] [address] [place] TRANSFUSION SERVICE REPORT - SCAN (07/16/2018 6:01 PM MAINTENANCE REPRESENTATIVE)Only the most recent of3 resultswithin the time period is included. Narrative Performed At Prepare Leuko-Red RBC (07/15/2018 11:54 PM MAINTENANCE REPRESENTATIVE) CROSSMATCH COMPATIBLE SAFETRACE TX Unit ABO O Pos SAFETRACE TX UNIT NUMBER [id number] [place] TX Status TRANSFUSED [facility] TX Blood Bank Product RED BLOOD CELLS SAFET[facility]ACE TX PRODUCT CODE [id number] [facility] [place] Specimen Other Performing Organization Address [facility] Phone Number [facility] [place] Haptoglobin (07/15/2018 7:11 AM MAINTENANCE REPRESENTATIVE) Haptoglobin 185 14 - 258 mg/dL [facility] Specimen Blood Performing Organization Address City/[facility] Phone Number [address] [address] [phone] [place] Peripheral Blood Smear - Path Review (07/14/2018 3:47 PM MAINTENANCE REPRESENTATIVE) RBC Morphology Polychromasia [facility] Anisocytosis [facility] Poikilocytosis WBC Morphology Toxic Granulation [facility] Pathologist Review Cell counts confirmed. [facility] Pathologist: Rafaela Dowell M.D. [facility] (electronic signature) [facility] Specimen Blood Performing Organization Address City/[facility] Phone Number [facility] [address] [phone] CENTER Reticulocyte count (07/14/2018 3:47 PM MAINTENANCE REPRESENTATIVE) % Retic 2.3 (H) 0.5 - 1.8 % [facility] Specimen Blood Performing Organization Address [facility] Phone Number [address] [address] CENTER Lactate dehydrogenase (LDH) (07/14/2018 1:03 PM MAINTENANCE REPRESENTATIVE) LDH 338 (H)Comment: Specimen 125 - 220 U/L [facility] slightly hemolyzed [facility] Specimen Blood Performing Organization Address [facility] Phone Number [address] [address] [place] Hepatic function panel (07/14/2018 1:03 PM MAINTENANCE REPRESENTATIVE) Protein, Total 4.8 (L)Comment: Specimen 6.0 - 8.3 gm/dL [facility] hemolyzed [facility] Albumin 1.2 (L)Comment: Specimen 3.5 - 5.0 g/dL [facility] hemolyzed [facility] Total Bilirubin 0.2Comment: Specimen 0.2 - 1.2 mg/dL [facility] Bil[facility], Direct 0.1Comment: Specimen 0.1 - 0.5 mg/dL [facility] hemolyzed [facility] Alkaline Phosphatase 74 40 - 150 U/L [facility] AST 38 (H)Comment: Specimen 5 - 34 U/L [facility] hemolyzed [facility] ALT 19Comment: Specimen 6 - 55 U/L [facility] hemolyzed [facility] Specimen Blood Performing Organization Address [facility] Phone Number [address] [address] CENTER Transfuse Leuko-Red RBC (07/14/2018 12:32 PM MAINTENANCE REPRESENTATIVE)Only the most recent of2 resultswithin the time period is included.REPORT OF PROCEDURE - ENDOSCOPY URL ( 07/13/2018 3:20 PM MAINTENANCE REPRESENTATIVE) Narrative Performed At Manual Differential (07/13/2018 5:54 AM MAINTENANCE REPRESENTATIVE)Only the most recent of2 resultswithin the time period is included. % Neutros 89 % [facility] % Lymphs 5 % [facility] % Monos 5 % [facility] % Atypical Lymphs 1 (H) 0 - 0 % [facility] # Neutros 11.21 (H) 1.78 - 5.38 K/ul [facility] # Lymphs 0.63 (L) 1.32 - 3.57 K/ul [facility] # Monos 0.63 0.30 - 0.82 K/uL [facility] # Atypical Lymphs 0.13 (H) 0.00 - 0.00 K/uL [facility] Total Counted 100 [facility] Platelet Morphology Normal [facility] Smudge Cells Present [facility] Anisocytosis 1+ few [facility] Poikilocytes 2+ moderate [facility] Parrish Cells 1+ few [facility] Platelet Conc Adequate [facility] Specimen Blood Narrative Performed At Received comment: [facility] User comments: Slide comments: Performing Organization Address City/State/Zipcode Phone Number [facility] [address] [place] [address] CENTER ECG 12 lead (07/12/2018 9:22 AM MAINTENANCE REPRESENTATIVE) Specimen Narrative Performed At Ventricular Rate 100 BPM GE MUSE Atrial Rate 100 BPM P-R Interval 148 ms QRS Duration 90 ms Q-T Interval 344 ms QTC Calculation(Bazett) 443 ms P [place] 59 degrees R [place] -12 degrees T [place] 9 degrees Sinus rhythm with premature artial complexes Inferior infarct , age undetermined Abnormal ECG No previous ECGs available Confirmed by MD MARYJANE, IHAB ([id number]) on 07/13/2018 7:29:33 AM Procedure Note Interface, External Ris In - 07/13/2018 7:29 AM MAINTENANCE REPRESENTATIVE Ventricular Rate 100 BPM Atrial Rate 100 BPM P-R Interval 148 ms QRS Duration 90 ms Q-T Interval 344 ms QTC Calculation(Bazett) 443 ms P [place] 59 degrees R [place] -12 degrees T [place] 9 degrees Sinus rhythm with premature artial complexes Inferior infarct , age undetermined Abnormal ECG No previous ECGs available Confirmed by MD MARYJANE, IHAB ([id number]) on 07/13/2018 7:29:33 AM Performing Organization Address City/State/Zipcode Phone Number GE MUSE Type and screen, automated (07/12/2018 6:21 AM MAINTENANCE REPRESENTATIVE) ABO/RH AUTOMATED (BEAKER) O POSITIVE [facility] Ab Scrn NEGATIVE [facility] Specimen Blood Performing Organization Address City/State/Zipcode Phone Number [facility] [address] [place] [address] [phone] after 12/23/2017 Insurance Payer Benefit Plan / Group Subscriber ID Type Phone Address MEDICARE MEDICARE A B xxxxxxxxxxx Medicare MEDICAID MEDICAID [facility] xxxxxxxxx Medicaid Advance Directives For more information, please contact:[facility] [place] [address] [phone] Code Status Date Activated Date Inactivated Comments Full Code 12/15/2018 12:12 AM 12/19/2018 1:03 PM This code status was determined by: Patient Full Code 08/10/2018 8:12 PM 12/14/2018 10:50 PM This code status was determined by: Patient Full Code 07/11/2018 10:34 PM 08/10/2018 4:09 PM This code status was determined by: Patient
--- OUTSIDE RECORDS SUMMARY | 2018-12-24 02:20 | XMS REPORT ---
:1940 Author Organization [facility] Address [address] [place] [address] Care Team Providers Name Role Phone JUAN PABLO CHARLES Unavailable Unavailable PEGGY LUQUE Unavailable Unavailable NALAM, JOSIANE CESAR Unavailable Unavailable Problems This patient has no known problems. Allergies, Adverse Reactions, Alerts This patient has no known allergies or adverse reactions. Medications This patient has no known medications. Results Test Description Test Time Test Comments Text Results Atomic Results Result Comments BLOOD CULTURE 2018-12-21 16:06:00 Test Item Value Reference Range Comments CULTURE (BEAKER) (test guku=4060) No growth in 5 days POCT-GLUCOSE [id number] 06:10:00 Test Item Value Reference Range Comments POC-GLUCOSE METER (BEAKER) 135 mg/dL 70-110 TESTED AT [facility] [address] [facility] (test grgi=5797) [facility] [address] BASIC METABOLIC [id number] 06:01:00 Test Item Value Reference Range Comments SODIUM (BEAKER) (test 138 meq/L 136-145 wqfg=067) POTASSIUM (BEAKER) (test 4.0 meq/L 3.5-5.1 Specimen slightly rywo=234) hemolyzed CHLORIDE (BEAKER) (test 110 meq/L 98-107 xpjh=007) CO2 (BEAKER) (test 24 meq/L 22-29 hmwr=503) BLOOD UREA NITROGEN 13 mg/dL 7-21 (BEAKER) (test flpq=559) CREATININE (BEAKER) (test 1.13 mg/dL 0.57-1.25 Specimen slightly ucth=904) hemolyzed GLUCOSE RANDOM (BEAKER) 110 mg/dL 70-105 (test qmva=970) CALCIUM (BEAKER) (test 7.5 mg/dL 8.4-10.2 gedz=864) EGFR (BEAKER) (test 76 mL/min/1.73 sq m ESTIMATED GFR IS NOT fppd=7410) ACCURATE CREATININE CLEARANCE IN PREDICTING GLOMERULAR FILTRATION RATE. ESTIMATED GFR IS NOT APPLICABLE FOR DIALYSIS PATIENTS. CBC W/PLT COUNT & AUTO [id number] 05:41:00 Test Item Value Reference Range Comments WHITE BLOOD CELL COUNT (BEAKER) (test xqnf=164) 8.1 K/ L 3.5-10.5 RED BLOOD CELL COUNT (BEAKER) (test xpdn=300) 3.47 M/ L 4.63-6.08 HEMOGLOBIN (BEAKER) (test uuwt=984) 9.9 GM/DL 13.7-17.5 HEMATOCRIT (BEAKER) (test axou=661) 32.1 % 40.1-51.0 MEAN CORPUSCULAR VOLUME (BEAKER) (test gghb=562) 92.5 fL 79.0-92.2 MEAN CORPUSCULAR HEMOGLOBIN (BEAKER) (test 28.5 pg 25.7-32.2 tezv=451) MEAN CORPUSCULAR HEMOGLOBIN CONC (BEAKER) (test 30.8 GM/DL 32.3-36.5 anvn=957) RED CELL DISTRIBUTION WIDTH (BEAKER) (test 15.9 % 11.6-14.4 ohmq=771) PLATELET COUNT (BEAKER) (test wzyp=611) 172 K/CU MM 150-450 MEAN PLATELET VOLUME (BEAKER) (test kosf=401) 10.2 fL 9.4-12.4 NUCLEATED RED BLOOD CELLS (BEAKER) (test 0 /100 WBC 0-0 jdew=229) NEUTROPHILS RELATIVE PERCENT (BEAKER) (test 72 % iyfm=889) LYMPHOCYTES RELATIVE PERCENT (BEAKER) (test 14 % byui=884) MONOCYTES RELATIVE PERCENT (BEAKER) (test 10 % hfwq=723) EOSINOPHILS RELATIVE PERCENT (BEAKER) (test 4 % jrfd=985) BASOPHILS RELATIVE PERCENT (BEAKER) (test 0 % vryo=269) NEUTROPHILS ABSOLUTE COUNT (BEAKER) (test 5.78 K/ L 1.78-5.38 ymcr=197) LYMPHOCYTES ABSOLUTE COUNT (BEAKER) (test 1.10 K/ L 1.32-3.57 nhyb=626) MONOCYTES ABSOLUTE COUNT (BEAKER) (test 0.80 K/ L 0.30-0.82 kssy=936) EOSINOPHILS ABSOLUTE COUNT (BEAKER) (test 0.32 K/ L 0.04-0.54 xxci=867) BASOPHILS ABSOLUTE COUNT (BEAKER) (test 0.03 K/ L 0.01-0.08 ceon=530) IMMATURE GRANULOCYTES-RELATIVE PERCENT (BEAKER) 0 % 0-1 (test lsoz=1007) POCT-GLUCOSE [id number] 00:59:00 Test Item Value Reference Range Comments POC-GLUCOSE METER (BEAKER) 118 mg/dL 70-110 TESTED AT [address] (test itmj=2094) [place] [id number] POCT-GLUCOSE [id number] 18:00:00 Test Item Value Reference Range Comments POC-GLUCOSE METER (BEAKER) 163 mg/dL 70-110 TESTED AT [address] (test wwzq=3234) [place] [id number] POCT-GLUCOSE [id number] 12:52:00 Test Item Value Reference Range Comments POC-GLUCOSE METER (BEAKER) 161 mg/dL 70-110 TESTED AT [address] (test qtqo=0106) [place] [address] ANG, REPLACE G TUBE, W/ [id number] 12:21:00Please replace feeding jejunostomy tube w/ shorter J tubeReason for exam:->J tube repositioningFINAL REPORT Jejunostomy catheter exchange History: Malfunctioning jejunostomy catheter. Modality: Fluoroscopy Sedation: None Anesthesia: Two percent Lidocaine without epinephrine. Approach: Existing right lower quadrant jejunostomy catheter Estimated blood loss: < 5 cc. Specimen: None. boring and filling machine operator: Santos Parish MD. Library Clerk Talking Books: MD Jatin. Fluoroscopy Time: 0.9 min.Reference Air Kerma (Ka, r): 5.2 mGy. Technique: [...] the jejunostomy catheter. Contrast was injected which confirmedthat the existing jejunostomy catheter within the jejunum. The catheter was then removed over a guidewire. A 14 Serbian ROSA jejunostomy catheter was advanced over a guidewire into the jejunum. Contrast injected through the feeding port demonstrated that the catheter is appropriately positioned. The retention balloon was inflated. The patient tolerated the procedure well. Impression : Technically successful uncomplicated exchange of a jejunostomy catheter. The catheter is ready for immediate use. Signed: Santos Parish MDReport Verified Date/Time: 2018 12:21:43 Reading Location: [place] [address] Angio Body Reading Room POCT- GLUCOSE [id number] 07:46:00 Test Item Value Reference Range Comments POC-GLUCOSE METER (BEAKER) 140 mg/dL 70-110 TESTED AT [facility] [address] [facility] (test fzha=5580) [facility] [address] POCT-GLUCOSE [id number] 06:37:00 Test Item Value Reference Range Comments POC-GLUCOSE METER (BEAKER) 156 mg/dL 70-110 TESTED AT [facility] [address] [facility] (test rlfs=5632) [facility] [address] [id number] 05:25:00 Test Item Value Reference Range Comments CREATININE (BEAKER) (test 1.24 mg/dL 0.57-1.25 btbx=640) EGFR (BEAKER) (test 69 mL/min/1.73 sq m ESTIMATED GFR IS NOT ruua=0845) ACCURATE CREATININE CLEARANCE IN PREDICTING GLOMERULAR FILTRATION RATE. ESTIMATED GFR IS NOT APPLICABLE FOR DIALYSIS PATIENTS. PROTHROMBIN [id number] 05:21:00 Test Item Value Reference Range Comments PROTIME (BEAKER) (test rypk=480) 14.8 seconds 11.7-14.7 INR (BEAKER) (test crbu=486) 1.2 <=5.9 RECOMMENDED COUMADIN/WARFARIN INR THERAPY RANGESSTANDARD DOSE: 2.0 - 3.0 Includes: PROPHYLAXIS forvenous thrombosis, systemic embolization; TREATMENT for venous thrombosis and/or pulmonary embolus.HIGH RISK: Target INR is 2.5-3.5 for patients with mechanical heart valves.VANCOMYCIN LEVEL, [id number] 05: 21:00 Test Item Value Reference Range Comments VANCOMYCIN RANDOM (BEAKER) (test ujrv=816) 17.5 ug/mL Reference Range: No NormalsCBC W/PLT COUNT & AUTO [id number] 05: 19:00 Test Item Value Reference Range Comments WHITE BLOOD CELL COUNT (BEAKER) (test pjlt=147) 10.7 K/ L 3.5-10.5 RED BLOOD CELL COUNT (BEAKER) (test hcej=053) 3.37 M/ L 4.63-6.08 HEMOGLOBIN (BEAKER) (test roha=641) 9.8 GM/DL 13.7-17.5 HEMATOCRIT (BEAKER) (test iwwl=301) 31.7 % 40.1-51.0 MEAN CORPUSCULAR VOLUME (BEAKER) (test dich=345) 94.1 fL 79.0-92.2 MEAN CORPUSCULAR HEMOGLOBIN (BEAKER) (test 29.1 pg 25.7-32.2 idry=254) MEAN CORPUSCULAR HEMOGLOBIN CONC (BEAKER) (test 30.9 GM/DL 32.3-36.5 mcah=075) RED CELL DISTRIBUTION WIDTH (BEAKER) (test 16.1 % 11.6-14.4 qlrk=528) PLATELET COUNT (BEAKER) (test iyex=650) 176 K/CU MM 150-450 MEAN PLATELET VOLUME (BEAKER) (test msgv=401) 9.9 fL 9.4-12.4 NUCLEATED RED BLOOD CELLS (BEAKER) (test 0 /100 WBC 0-0 mbnb=676) NEUTROPHILS RELATIVE PERCENT (BEAKER) (test 80 % zguz=005) LYMPHOCYTES RELATIVE PERCENT (BEAKER) (test 9 % emfd=481) MONOCYTES RELATIVE PERCENT (BEAKER) (test 9 % ihls=568) EOSINOPHILS RELATIVE PERCENT (BEAKER) (test 1 % lqec=561) BASOPHILS RELATIVE PERCENT (BEAKER) (test 0 % mkra=714) NEUTROPHILS ABSOLUTE COUNT (BEAKER) (test 8.58 K/ L 1.78-5.38 hgko=296) LYMPHOCYTES ABSOLUTE COUNT (BEAKER) (test 0.92 K/ L 1.32-3.57 qgkf=354) MONOCYTES ABSOLUTE COUNT (BEAKER) (test 1.01 K/ L 0.30-0.82 wgmh=147) EOSINOPHILS ABSOLUTE COUNT (BEAKER) (test 0.14 K/ L 0.04-0.54 dzpo=751) BASOPHILS ABSOLUTE COUNT (BEAKER) (test 0.03 K/ L 0.01-0.08 veit=447) IMMATURE GRANULOCYTES-RELATIVE PERCENT (BEAKER) 0 % 0-1 (test xuwm=6527) POCT-GLUCOSE [id number] 23:42:00 Test Item Value Reference Range Comments POC-GLUCOSE METER (BEAKER) 141 mg/dL 70-110 TESTED AT [address] (test phoy=3929) [facility] [address] POCT-GLUCOSE [id number] 18:27:00 Test Item Value Reference Range Comments POC-GLUCOSE METER (BEAKER) 158 mg/dL 70-110 TESTED AT [address] (test jvhc=7725) [facility] [address] POCT-GLUCOSE [id number] 12:42:00 Test Item Value Reference Range Comments POC-GLUCOSE METER (BEAKER) 122 mg/dL 70-110 TESTED AT [address] (test cpyb=3406) [facility] [address] POCT-GLUCOSE [id number] 06:42:00 Test Item Value Reference Range Comments POC-GLUCOSE METER (BEAKER) 102 mg/dL 70-110 TESTED AT [address] (test zzso=8388) [facility] [address] BASIC METABOLIC [id number] 06:01:00 Test Item Value Reference Range Comments SODIUM (BEAKER) (test 143 meq/L 136-145 zpus=215) POTASSIUM (BEAKER) (test 3.8 meq/L 3.5-5.1 obos=339) CHLORIDE (BEAKER) (test 115 meq/L 98-107 befi=418) CO2 (BEAKER) (test 25 meq/L 22-29 ctjm=632) BLOOD UREA NITROGEN 14 mg/dL 7-21 (BEAKER) (test qwxa=401) CREATININE (BEAKER) (test 1.30 mg/dL 0.57-1.25 zulg=570) GLUCOSE RANDOM (BEAKER) 80 mg/dL 70-105 (test dnog=775) CALCIUM (BEAKER) (test 7.6 mg/dL 8.4-10.2 tfdl=503) EGFR (BEAKER) (test 65 mL/min/1.73 sq m ESTIMATED GFR IS NOT nogi=9404) ACCURATE CREATININE CLEARANCE IN PREDICTING GLOMERULAR FILTRATION RATE. ESTIMATED GFR IS NOT APPLICABLE FOR DIALYSIS PATIENTS. Post transfusionVANCOMYCIN LEVEL, [id number] 05:57:00 Test Item Value Reference Range Comments VANCOMYCIN TROUGH (BEAKER) (test gqqr=928) 27.4 ug/mL 10.0-20.0 Draw 30 min prior to scheduled dose, HOLD if level > 20 mcg/mL, inform MD.CBC W/PLT COUNT & AUTO [id number] 05:12:00 Test Item Value Reference Range Comments WHITE BLOOD CELL COUNT (BEAKER) (test adnh=733) 8.3 K/ L 3.5-10.5 RED BLOOD CELL COUNT (BEAKER) (test afhz=455) 3.11 M/ L 4.63-6.08 HEMOGLOBIN (BEAKER) (test nyyi=227) 8.9 GM/DL 13.7-17.5 HEMATOCRIT (BEAKER) (test thxd=080) 29.0 % 40.1-51.0 MEAN CORPUSCULAR VOLUME (BEAKER) (test rlzp=576) 93.2 fL 79.0-92.2 MEAN CORPUSCULAR HEMOGLOBIN (BEAKER) (test 28.6 pg 25.7-32.2 cmro=656) MEAN CORPUSCULAR HEMOGLOBIN CONC (BEAKER) (test 30.7 GM/DL 32.3-36.5 cnvj=639) RED CELL DISTRIBUTION WIDTH (BEAKER) (test 16.6 % 11.6-14.4 criw=072) PLATELET COUNT (BEAKER) (test ppui=350) 182 K/CU MM 150-450 MEAN PLATELET VOLUME (BEAKER) (test qobc=802) 9.8 fL 9.4-12.4 NUCLEATED RED BLOOD CELLS (BEAKER) (test 0 /100 WBC 0-0 xcgv=443) NEUTROPHILS RELATIVE PERCENT (BEAKER) (test 73 % atpj=096) LYMPHOCYTES RELATIVE PERCENT (BEAKER) (test 14 % myuo=911) MONOCYTES RELATIVE PERCENT (BEAKER) (test 9 % xqsw=137) EOSINOPHILS RELATIVE PERCENT (BEAKER) (test 3 % ygqe=027) BASOPHILS RELATIVE PERCENT (BEAKER) (test 1 % amkn=185) NEUTROPHILS ABSOLUTE COUNT (BEAKER) (test 6.03 K/ L 1.78-5.38 kktl=267) LYMPHOCYTES ABSOLUTE COUNT (BEAKER) (test 1.15 K/ L 1.32-3.57 nybp=060) MONOCYTES ABSOLUTE COUNT (BEAKER) (test 0.76 K/ L 0.30-0.82 nigz=018) EOSINOPHILS ABSOLUTE COUNT (BEAKER) (test 0.25 K/ L 0.04-0.54 lfzg=787) BASOPHILS ABSOLUTE COUNT (BEAKER) (test 0.05 K/ L 0.01-0.08 ofww=778) IMMATURE GRANULOCYTES-RELATIVE PERCENT (BEAKER) 0 % 0-1 (test uukv=4527) POCT-GLUCOSE [id number] 23:43:00 Test Item Value Reference Range Comments POC-GLUCOSE METER (BEAKER) 84 mg/dL 70-110 TESTED AT [address] (test qlub=6081) [place] [address] POCT-GLUCOSE [id number] 17:38:00 Test Item Value Reference Range Comments POC-GLUCOSE METER (BEAKER) 77 mg/dL 70-110 TESTED AT [address] (test pxxs=0280) [place] [address] POCT-GLUCOSE [id number] 11:50:00 Test Item Value Reference Range Comments POC-GLUCOSE METER (BEAKER) 78 mg/dL 70-110 TESTED AT [address] (test drov=9867) [place] [address] POCT-GLUCOSE [id number] 05:39:00 Test Item Value Reference Range Comments POC-GLUCOSE METER (BEAKER) 97 mg/dL 70-110 TESTED AT [address] (test xqqc=4126) [place] [id number] BASIC METABOLIC [id number] 05:29:00 Test Item Value Reference Range Comments SODIUM (BEAKER) (test 144 meq/L 136-145 azbm=473) POTASSIUM (BEAKER) (test 3.8 meq/L 3.5-5.1 txlr=358) CHLORIDE (BEAKER) (test 115 meq/L 98-107 vdgv=578) CO2 (BEAKER) (test 25 meq/L 22-29 xmhz=449) BLOOD UREA NITROGEN 14 mg/dL 7-21 (BEAKER) (test jriw=954) CREATININE (BEAKER) (test 1.20 mg/dL 0.57-1.25 xhot=902) GLUCOSE RANDOM (BEAKER) 80 mg/dL 70-105 (test pokn=193) CALCIUM (BEAKER) (test 7.9 mg/dL 8.4-10.2 phmk=207) EGFR (BEAKER) (test 71 mL/min/1.73 sq m ESTIMATED GFR IS NOT gczc=0134) ACCURATE CREATININE CLEARANCE IN PREDICTING GLOMERULAR FILTRATION RATE. ESTIMATED GFR IS NOT APPLICABLE FOR DIALYSIS PATIENTS. Post transfusionCBC W/PLT COUNT & AUTO [id number] 05:08:00 Test Item Value Reference Range Comments WHITE BLOOD CELL COUNT (BEAKER) (test twjy=003) 9.9 K/ L 3.5-10.5 RED BLOOD CELL COUNT (BEAKER) (test zhup=754) 3.20 M/ L 4.63-6.08 HEMOGLOBIN (BEAKER) (test ifbr=086) 9.2 GM/DL 13.7-17.5 HEMATOCRIT (BEAKER) (test fdzo=495) 29.1 % 40.1-51.0 MEAN CORPUSCULAR VOLUME (BEAKER) (test phsh=437) 90.9 fL 79.0-92.2 MEAN CORPUSCULAR HEMOGLOBIN (BEAKER) (test 28.8 pg 25.7-32.2 ouaf=105) MEAN CORPUSCULAR HEMOGLOBIN CONC (BEAKER) (test 31.6 GM/DL 32.3-36.5 eerd=633) RED CELL DISTRIBUTION WIDTH (BEAKER) (test 17.4 % 11.6-14.4 tisx=814) PLATELET COUNT (BEAKER) (test flxp=294) 189 K/CU MM 150-450 MEAN PLATELET VOLUME (BEAKER) (test tkla=578) 10.2 fL 9.4-12.4 NUCLEATED RED BLOOD CELLS (BEAKER) (test 0 /100 WBC 0-0 nqxq=131) NEUTROPHILS RELATIVE PERCENT (BEAKER) (test 75 % yfyl=880) LYMPHOCYTES RELATIVE PERCENT (BEAKER) (test 12 % xtgq=288) MONOCYTES RELATIVE PERCENT (BEAKER) (test 8 % drjx=123) EOSINOPHILS RELATIVE PERCENT (BEAKER) (test 5 % wyub=595) BASOPHILS RELATIVE PERCENT (BEAKER) (test 0 % ynlx=869) NEUTROPHILS ABSOLUTE COUNT (BEAKER) (test 7.36 K/ L 1.78-5.38 cldf=681) LYMPHOCYTES ABSOLUTE COUNT (BEAKER) (test 1.20 K/ L 1.32-3.57 smmw=440) MONOCYTES ABSOLUTE COUNT (BEAKER) (test 0.77 K/ L 0.30-0.82 ofkk=388) EOSINOPHILS ABSOLUTE COUNT (BEAKER) (test 0.45 K/ L 0.04-0.54 hpky=321) BASOPHILS ABSOLUTE COUNT (BEAKER) (test 0.04 K/ L 0.01-0.08 mbsj=292) IMMATURE GRANULOCYTES-RELATIVE PERCENT (BEAKER) 0 % 0-1 (test essn=1368) POCT-GLUCOSE [id number] 02:09:00 Test Item Value Reference Range Comments POC-GLUCOSE METER (BEAKER) 130 mg/dL 70-110 TESTED AT [address] (test mcla=7322) [place] [address] POCT-GLUCOSE [id number] 00:46:00 Test Item Value Reference Range Comments POC-GLUCOSE METER (BEAKER) 71 mg/dL 70-110 TESTED AT [address] (test xvcy=0302) [place] [address] POCT-GLUCOSE [id number] 23:45:00 Test Item Value Reference Range Comments POC-GLUCOSE METER (BEAKER) 80 mg/dL 70-110 TESTED AT [address] (test kand=6334) [place] [address] POCT-GLUCOSE [id number] 18:03:00 Test Item Value Reference Range Comments POC-GLUCOSE METER (BEAKER) 128 mg/dL 70-110 TESTED AT [address] (test quxz=9264) [place] [address] CT, [id number] 17:43:00FINAL REPORT INDICATION: Pain at PEG tube and J-tube site. COMPARISON: None. TECHNIQUE: CT of the Abdomen and Pelvis WITHOUT intravenous contrast. Enteric contrast was not used. The exam was performed according to our department dose-optimization protocol, which includes automated exposure control, adjustments of mA and kV according to patient size. Iterative reconstructions arealso sometimes employed. FINDINGS: There is a track [...] demonstrated. No upper abdominal, retroperitoneal, or pelvic lymphadenopathy.Adrenal glands and kidneys are unremarkable. There is a transurethral balloon tipped catheter in thebladder. 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 Signed: Jeffrey Flores MDReport Verified Date/Time: 12/15/2018 17:43 :35 Reading Location: [facility] C013Y CT Body Reading Room CBC W/PLT COUNT & AUTO [id number] 13:31:00 Test Item Value Reference Range Comments WHITE BLOOD CELL COUNT (BEAKER) (test exit=730) 10.7 K/ L 3.5-10.5 RED BLOOD CELL COUNT (BEAKER) (test xmqd=047) 3.52 M/ L 4.63-6.08 HEMOGLOBIN (BEAKER) (test szcn=615) 10.1 GM/DL 13.7-17.5 HEMATOCRIT (BEAKER) (test damn=593) 31.7 % 40.1-51.0 MEAN CORPUSCULAR VOLUME (BEAKER) (test rghq=232) 90.1 fL 79.0-92.2 MEAN CORPUSCULAR HEMOGLOBIN (BEAKER) (test 28.7 pg 25.7-32.2 rxal=844) MEAN CORPUSCULAR HEMOGLOBIN CONC (BEAKER) (test 31.9 GM/DL 32.3-36.5 lutg=558) RED CELL DISTRIBUTION WIDTH (BEAKER) (test 18.0 % 11.6-14.4 uppo=649) PLATELET COUNT (BEAKER) (test jugv=730) 191 K/CU MM 150-450 MEAN PLATELET VOLUME (BEAKER) (test pxdh=678) 9.6 fL 9.4-12.4 NUCLEATED RED BLOOD CELLS (BEAKER) (test 0 /100 WBC 0-0 mzoz=551) NEUTROPHILS RELATIVE PERCENT (BEAKER) (test 78 % vbtc=565) LYMPHOCYTES RELATIVE PERCENT (BEAKER) (test 10 % rzcs=447) MONOCYTES RELATIVE PERCENT (BEAKER) (test 7 % zivn=887) EOSINOPHILS RELATIVE PERCENT (BEAKER) (test 4 % ettq=017) BASOPHILS RELATIVE PERCENT (BEAKER) (test 0 % nrax=533) NEUTROPHILS ABSOLUTE COUNT (BEAKER) (test 8.27 K/ L 1.78-5.38 qzqr=649) LYMPHOCYTES ABSOLUTE COUNT (BEAKER) (test 1.09 K/ L 1.32-3.57 bpty=096) MONOCYTES ABSOLUTE COUNT (BEAKER) (test 0.78 K/ L 0.30-0.82 ihbv=485) EOSINOPHILS ABSOLUTE COUNT (BEAKER) (test 0.45 K/ L 0.04-0.54 domb=505) BASOPHILS ABSOLUTE COUNT (BEAKER) (test 0.03 K/ L 0.01-0.08 dkgn=981) IMMATURE GRANULOCYTES-RELATIVE PERCENT (BEAKER) 0 % 0-1 (test rrpf=8353) POCT-GLUCOSE [id number] 11:40:00 Test Item Value Reference Range Comments POC-GLUCOSE METER (BEAKER) 172 mg/dL 70-110 TESTED AT [address] (test ahal=4489) [place] [address] POCT-GLUCOSE [id number] 06:43:00 Test Item Value Reference Range Comments POC-GLUCOSE METER (BEAKER) 248 mg/dL 70-110 TESTED AT [address] (test kjpu=4615) [place] [address] BASIC METABOLIC [id number] 06:04:00 Test Item Value Reference Range Comments SODIUM (BEAKER) (test 144 meq/L 136-145 pvqq=368) POTASSIUM (BEAKER) (test 3.8 meq/L 3.5-5.1 teen=107) CHLORIDE (BEAKER) (test 115 meq/L 98-107 fovw=819) CO2 (BEAKER) (test 24 meq/L 22-29 uqgh=470) BLOOD UREA NITROGEN 19 mg/dL 7-21 (BEAKER) (test urym=327) CREATININE (BEAKER) (test 1.57 mg/dL 0.57-1.25 uxvn=558) GLUCOSE RANDOM (BEAKER) 172 mg/dL 70-105 (test rfhh=444) CALCIUM (BEAKER) (test 7.9 mg/dL 8.4-10.2 tjnf=137) EGFR (BEAKER) (test 52 mL/min/1.73 sq m ESTIMATED GFR IS NOT dgep=2910) ACCURATE CREATININE CLEARANCE IN PREDICTING GLOMERULAR FILTRATION RATE. ESTIMATED GFR IS NOT APPLICABLE FOR DIALYSIS PATIENTS. Post transfusionLACTIC ACID, [id number] 05:41:00 Test Item Value Reference Range Comments LACTATE BLOOD VENOUS (2) 1.2 mmol/L 0.5-2.2 Specimen slightly hemolyzed (BEAKER) (test igjn=3121) Post transfusionCBC W/PLT COUNT & AUTO [id number] 05:38:00 Test Item Value Reference Range Comments WHITE BLOOD CELL COUNT (BEAKER) (test cocl=684) 12.4 K/ L 3.5-10.5 RED BLOOD CELL COUNT (BEAKER) (test kphe=966) 3.43 M/ L 4.63-6.08 HEMOGLOBIN (BEAKER) (test rtlt=106) 9.8 GM/DL 13.7-17.5 HEMATOCRIT (BEAKER) (test wwfv=787) 31.8 % 40.1-51.0 MEAN CORPUSCULAR VOLUME (BEAKER) (test qber=792) 92.7 fL 79.0-92.2 MEAN CORPUSCULAR HEMOGLOBIN (BEAKER) (test 28.6 pg 25.7-32.2 zmnm=113) MEAN CORPUSCULAR HEMOGLOBIN CONC (BEAKER) (test 30.8 GM/DL 32.3-36.5 qrsv=488) RED CELL DISTRIBUTION WIDTH (BEAKER) (test 17.8 % 11.6-14.4 nsin=865) PLATELET COUNT (BEAKER) (test xrsx=725) 182 K/CU MM 150-450 MEAN PLATELET VOLUME (BEAKER) (test grsl=966) 10.1 fL 9.4-12.4 NUCLEATED RED BLOOD CELLS (BEAKER) (test 0 /100 WBC 0-0 fxbq=115) NEUTROPHILS RELATIVE PERCENT (BEAKER) (test 75 % vgnu=375) LYMPHOCYTES RELATIVE PERCENT (BEAKER) (test 9 % ainc=860) MONOCYTES RELATIVE PERCENT (BEAKER) (test 12 % batf=186) EOSINOPHILS RELATIVE PERCENT (BEAKER) (test 3 % hjne=057) BASOPHILS RELATIVE PERCENT (BEAKER) (test 0 % lswe=195) NEUTROPHILS ABSOLUTE COUNT (BEAKER) (test 9.33 K/ L 1.78-5.38 tqoe=593) LYMPHOCYTES ABSOLUTE COUNT (BEAKER) (test 1.16 K/ L 1.32-3.57 qfqr=066) MONOCYTES ABSOLUTE COUNT (BEAKER) (test 1.44 K/ L 0.30-0.82 rcou=447) EOSINOPHILS ABSOLUTE COUNT (BEAKER) (test 0.35 K/ L 0.04-0.54 npae=875) BASOPHILS ABSOLUTE COUNT (BEAKER) (test 0.03 K/ L 0.01-0.08 ropk=997) IMMATURE GRANULOCYTES-RELATIVE PERCENT (BEAKER) 1 % 0-1 (test mpzt=8599) URINALYSIS W/ REFLEX URINE [id number] 05:12:00 Test Item Value Reference Range Comments COLOR (BEAKER) (test fyvc=479) Light Yellow CLARITY (BEAKER) (test lixf=279) Hazy SPECIFIC GRAVITY UA (BEAKER) (test 1.009 1.001-1.035 vtkf=083) PH UA (BEAKER) (test iyzu=439) 6.5 5.0-8.0 PROTEIN UA (BEAKER) (test pzus=357) 100 mg/dL Negative GLUCOSE UA (BEAKER) (test tfxn=185) 500 mg/dL Negative KETONES UA (BEAKER) (test kddr=499) Negative Negative BILIRUBIN UA (BEAKER) (test shjg=904) Negative Negative BLOOD UA (BEAKER) (test xjpk=024) Trace Negative NITRITE UA (BEAKER) (test plyz=852) Negative Negative LEUKOCYTE ESTERASE UA (BEAKER) (test Large Negative jfrq=876) UROBILINOGEN UA (BEAKER) (test ouvf=547) 0.2 mg/dL 0.2-1.0 RBC UA (BEAKER) (test tazh=855) 3 /HPF WBC UA (BEAKER) (test cnpa=681) 33 /HPF Wbc clumps seen BACTERIA (BEAKER) (test lbde=680) Few MUCUS (BEAKER) (test bfdn=2891) Rare HYALINE CASTS (BEAKER) (test wnne=652) 2 /LPF SOURCE(BEAKER) (test vgay=2652) POCT-GLUCOSE [id number] 00:38:00 Test Item Value Reference Range Comments POC-GLUCOSE METER (BEAKER) 275 mg/dL 70-110 TESTED AT [address] (test xywj=1330) [place] [address] HEMOGLOBIN [id number] 13:06:00 Test Item Value Reference Range Comments HEMOGLOBIN A1C (BEAKER) (test sews=107) 6.4 % 4.3-6.1 HEMOGLOBIN [id number] 13:06:00 Test Item Value Reference Range Comments HEMOGLOBIN A1C (BEAKER) (test zngp=067) 6.3 % 4.3-6.1 HEMOGLOBIN AND [id number] 12:45:00 Test Item Value Reference Range Comments HEMOGLOBIN (BEAKER) (test nwyc=819) 9.2 GM/DL 13.7-17.5 HEMATOCRIT (BEAKER) (test qrby=728) 30.1 % 40.1-51.0 POCT-GLUCOSE [id number] 12:00:00 Test Item Value Reference Range Comments POC-GLUCOSE METER (BEAKER) 98 mg/dL 70-110 TESTED AT [address] (test okxv=7926) [place] [address] POCT-GLUCOSE [id number] 06:19:00 Test Item Value Reference Range Comments POC-GLUCOSE METER (BEAKER) 120 mg/dL 70-110 TESTED AT [address] (test nria=0634) [place] [address] [id number] 02:40:00 Test Item Value Reference Range Comments PHOSPHORUS (BEAKER) (test pqmj=942) 3.2 mg/dL 2.3-4.7 [id number] 02:40:00 Test Item Value Reference Range Comments MAGNESIUM (BEAKER) (test hbng=885) 1.8 mg/dL 1.6-2.6 BASIC METABOLIC [id number] 02:40:00 Test Item Value Reference Range Comments SODIUM (BEAKER) (test 134 meq/L 136-145 zegl=735) POTASSIUM (BEAKER) (test 4.2 meq/L 3.5-5.1 wolm=057) CHLORIDE (BEAKER) (test 102 meq/L 98-107 qyzc=859) CO2 (BEAKER) (test 27 meq/L 22-29 fdnx=498) BLOOD UREA NITROGEN 24 mg/dL 7-21 (BEAKER) (test dkms=892) CREATININE (BEAKER) (test 1.31 mg/dL 0.57-1.25 csaq=484) GLUCOSE RANDOM (BEAKER) 77 mg/dL 70-105 (test lget=844) CALCIUM (BEAKER) (test 8.6 mg/dL 8.4-10.2 uihw=977) EGFR (BEAKER) (test 64 mL/min/1.73 sq m ESTIMATED GFR IS NOT qdsv=3688) ACCURATE CREATININE CLEARANCE IN PREDICTING GLOMERULAR FILTRATION RATE. ESTIMATED GFR IS NOT APPLICABLE FOR DIALYSIS PATIENTS. CALCIUM, [id number] 02:18:00 Test Item Value Reference Range Comments CALCIUM IONIZED (BEAKER) (test vagk=746) 1.09 mmol/L 1.12-1.27 PH, BLOOD (BEAKER) (test gmxq=0300) 7.44 HEMOGLOBIN AND [id number] 02:10:00 Test Item Value Reference Range Comments HEMOGLOBIN (BEAKER) (test vvao=286) 9.8 GM/DL 13.7-17.5 HEMATOCRIT (BEAKER) (test verk=194) 31.9 % 40.1-51.0 CBC W/PLT COUNT & AUTO [id number] 02:10:00 Test Item Value Reference Range Comments WHITE BLOOD CELL COUNT (BEAKER) (test frdh=374) 10.1 K/ L 3.5-10.5 RED BLOOD CELL COUNT (BEAKER) (test ffne=404) 3.54 M/ L 4.63-6.08 HEMOGLOBIN (BEAKER) (test hvas=345) 9.8 GM/DL 13.7-17.5 HEMATOCRIT (BEAKER) (test krvb=701) 31.9 % 40.1-51.0 MEAN CORPUSCULAR VOLUME (BEAKER) (test rhvn=915) 90.1 fL 79.0-92.2 MEAN CORPUSCULAR HEMOGLOBIN (BEAKER) (test 27.7 pg 25.7-32.2 cqyt=711) MEAN CORPUSCULAR HEMOGLOBIN CONC (BEAKER) (test 30.7 GM/DL 32.3-36.5 irqc=297) RED CELL DISTRIBUTION WIDTH (BEAKER) (test 17.7 % 11.6-14.4 btas=763) PLATELET COUNT (BEAKER) (test ulju=088) 209 K/CU MM 150-450 MEAN PLATELET VOLUME (BEAKER) (test hpjx=820) 9.9 fL 9.4-12.4 NUCLEATED RED BLOOD CELLS (BEAKER) (test 0 /100 WBC 0-0 wjdm=826) NEUTROPHILS RELATIVE PERCENT (BEAKER) (test 77 % inso=840) LYMPHOCYTES RELATIVE PERCENT (BEAKER) (test 11 % bfrf=090) MONOCYTES RELATIVE PERCENT (BEAKER) (test 10 % vzog=276) EOSINOPHILS RELATIVE PERCENT (BEAKER) (test 2 % luil=051) BASOPHILS RELATIVE PERCENT (BEAKER) (test 0 % fbol=577) NEUTROPHILS ABSOLUTE COUNT (BEAKER) (test 7.78 K/ L 1.78-5.38 yeew=866) LYMPHOCYTES ABSOLUTE COUNT (BEAKER) (test 1.07 K/ L 1.32-3.57 gdbt=334) MONOCYTES ABSOLUTE COUNT (BEAKER) (test 1.04 K/ L 0.30-0.82 qajn=646) EOSINOPHILS ABSOLUTE COUNT (BEAKER) (test 0.17 K/ L 0.04-0.54 wrfp=874) BASOPHILS ABSOLUTE COUNT (BEAKER) (test 0.02 K/ L 0.01-0.08 ovum=382) IMMATURE GRANULOCYTES-RELATIVE PERCENT (BEAKER) 0 % 0-1 (test ibfi=5221) POCT-GLUCOSE [id number] 01:36:00 Test Item Value Reference Range Comments POC-GLUCOSE METER (BEAKER) 97 mg/dL 70-110 TESTED AT [address] (test lmdk=8621) [place] [id number] POCT-GLUCOSE [id number] 22:56:00 Test Item Value Reference Range Comments POC-GLUCOSE METER (BEAKER) 70 mg/dL 70-110 TESTED AT [address] (test sijq=7208) [place] [address] [id number] 19:59:00 Test Item Value Reference Range Comments PHOSPHORUS (BEAKER) (test fkie=017) 3.2 mg/dL 2.3-4.7 [id number] 19:59:00 Test Item Value Reference Range Comments MAGNESIUM (BEAKER) (test xydq=204) 1.9 mg/dL 1.6-2.6 COMPREHENSIVE METABOLIC [id number] 19:59:00 Test Item Value Reference Range Comments TOTAL PROTEIN (BEAKER) 7.4 gm/dL 6.0-8.3 (test lvaw=329) ALBUMIN (BEAKER) (test 2.1 g/dL 3.5-5.0 egsr=8765) ALKALINE PHOSPHATASE 142 U/L 40-150 (BEAKER) (test qhbo=622) BILIRUBIN TOTAL (BEAKER) 0.2 mg/dL 0.2-1.2 (test bbny=888) SODIUM (BEAKER) (test 136 meq/L 136-145 viot=393) POTASSIUM (BEAKER) (test 4.0 meq/L 3.5-5.1 lkzr=296) CHLORIDE (BEAKER) (test 102 meq/L 98-107 sfgv=138) CO2 (BEAKER) (test 29 meq/L 22-29 bxzd=491) BLOOD UREA NITROGEN 27 mg/dL 7-21 (BEAKER) (test jfdu=059) CREATININE (BEAKER) (test 1.33 mg/dL 0.57-1.25 ldpi=415) GLUCOSE RANDOM (BEAKER) 51 mg/dL 70-105 (test xffv=040) CALCIUM (BEAKER) (test 8.6 mg/dL 8.4-10.2 pptf=871) AST (SGOT) (BEAKER) (test 37 U/L 5-34 nwba=293) ALT (SGPT) (BEAKER) (test 27 U/L 6-55 gbcj=140) EGFR (BEAKER) (test 63 mL/min/1.73 sq m ESTIMATED GFR IS NOT qbjc=4764) ACCURATE CREATININE CLEARANCE IN PREDICTING GLOMERULAR FILTRATION RATE. ESTIMATED GFR IS NOT APPLICABLE FOR DIALYSIS PATIENTS. CBC W/PLT COUNT & AUTO [id number] 19:45:00 Test Item Value Reference Range Comments WHITE BLOOD CELL COUNT (BEAKER) (test kgbi=261) 10.5 K/ L 3.5-10.5 RED BLOOD CELL COUNT (BEAKER) (test dlaj=423) 3.65 M/ L 4.63-6.08 HEMOGLOBIN (BEAKER) (test ncpn=907) 10.2 GM/DL 13.7-17.5 HEMATOCRIT (BEAKER) (test doty=292) 33.6 % 40.1-51.0 MEAN CORPUSCULAR VOLUME (BEAKER) (test pnzi=793) 92.1 fL 79.0-92.2 MEAN CORPUSCULAR HEMOGLOBIN (BEAKER) (test 27.9 pg 25.7-32.2 guds=422) MEAN CORPUSCULAR HEMOGLOBIN CONC (BEAKER) (test 30.4 GM/DL 32.3-36.5 hszp=712) RED CELL DISTRIBUTION WIDTH (BEAKER) (test 17.6 % 11.6-14.4 xqmh=065) PLATELET COUNT (BEAKER) (test csbz=417) 213 K/CU MM 150-450 MEAN PLATELET VOLUME (BEAKER) (test zovn=597) 10.7 fL 9.4-12.4 NUCLEATED RED BLOOD CELLS (BEAKER) (test 0 /100 WBC 0-0 kekb=070) NEUTROPHILS RELATIVE PERCENT (BEAKER) (test 81 % nttq=452) LYMPHOCYTES RELATIVE PERCENT (BEAKER) (test 8 % khyb=845) MONOCYTES RELATIVE PERCENT (BEAKER) (test 9 % yndy=274) EOSINOPHILS RELATIVE PERCENT (BEAKER) (test 2 % lxmz=915) BASOPHILS RELATIVE PERCENT (BEAKER) (test 0 % ajfi=928) NEUTROPHILS ABSOLUTE COUNT (BEAKER) (test 8.47 K/ L 1.78-5.38 hrgx=872) LYMPHOCYTES ABSOLUTE COUNT (BEAKER) (test 0.79 K/ L 1.32-3.57 ycgg=885) MONOCYTES ABSOLUTE COUNT (BEAKER) (test 0.96 K/ L 0.30-0.82 vgou=474) EOSINOPHILS ABSOLUTE COUNT (BEAKER) (test 0.22 K/ L 0.04-0.54 dzkt=685) BASOPHILS ABSOLUTE COUNT (BEAKER) (test 0.03 K/ L 0.01-0.08 ibck=365) IMMATURE GRANULOCYTES-RELATIVE PERCENT (BEAKER) 0 % 0-1 (test jdne=2173) HEMOGLOBIN AND [id number] 19:43:00 Test Item Value Reference Range Comments HEMOGLOBIN (BEAKER) (test iiyk=846) 10.2 GM/DL 13.7-17.5 HEMATOCRIT (BEAKER) (test pvvt=070) 33.6 % 40.1-51.0 POCT-GLUCOSE [id number] 16:53:00 Test Item Value Reference Range Comments POC-GLUCOSE METER (BEAKER) 83 mg/dL 70-110 TESTED AT [facility] [address] [facility] (test jkgg=3588) [place] [id number] PERIPHERAL BLOOD SMEAR - PATHOLOGIST [id number] 11:31:00 Test Item Value Reference Range Comments RBC MORPHOLOGY (BEAKER) Polychromasia (test ekjn=2562) RBC MORPHOLOGY (BEAKER) Anisocytosis (test nqtw=88572) RBC MORPHOLOGY (BEAKER) Poikilocytosis (test lwyx=67244) WBC MORPHOLOGY (BEAKER) Toxic Granulation (test poxa=6081) PERIPHERAL SMR REVIEW Cell counts confirmed. (BEAKER) (test muwp=3412) [id number] Rafaela Dowell M.D. (electronic (BEAKER) (test asim=0168) signature) POCT-GLUCOSE [id number] 08:24:00 Test Item Value Reference Range Comments POC-GLUCOSE METER (BEAKER) 236 mg/dL 70-110 TESTED AT [address] (test wuwb=6116) [place] [id number] 07:35:00 Test Item Value Reference Range Comments HAPTOGLOBIN (BEAKER) (test hnmi=141) 185 mg/dL 14-258 BASIC METABOLIC [id number] 07:34:00 Test Item Value Reference Range Comments SODIUM (BEAKER) (test 141 meq/L 136-145 dhqs=353) POTASSIUM (BEAKER) (test 4.2 meq/L 3.5-5.1 vysc=740) CHLORIDE (BEAKER) (test 112 meq/L 98-107 vvte=676) CO2 (BEAKER) (test 26 meq/L 22-29 egmm=316) BLOOD UREA NITROGEN 23 mg/dL 7-21 (BEAKER) (test frbc=332) CREATININE (BEAKER) (test 1.23 mg/dL 0.57-1.25 tfzd=725) GLUCOSE RANDOM (BEAKER) 186 mg/dL 70-105 (test qprv=679) CALCIUM (BEAKER) (test 8.0 mg/dL 8.4-10.2 qftj=356) EGFR (BEAKER) (test 69 mL/min/1.73 sq m ESTIMATED GFR IS NOT mypj=8095) ACCURATE CREATININE CLEARANCE IN PREDICTING GLOMERULAR FILTRATION RATE. ESTIMATED GFR IS NOT APPLICABLE FOR DIALYSIS PATIENTS. CBC W/PLT COUNT & AUTO [id number] 07:21:00 Test Item Value Reference Range Comments WHITE BLOOD CELL COUNT (BEAKER) (test azzz=921) 8.9 K/ L 3.5-10.5 RED BLOOD CELL COUNT (BEAKER) (test tqcn=721) 3.26 M/ L 4.63-6.08 HEMOGLOBIN (BEAKER) (test cexv=285) 9.1 GM/DL 13.7-17.5 HEMATOCRIT (BEAKER) (test diiy=716) 29.6 % 40.1-51.0 MEAN CORPUSCULAR VOLUME (BEAKER) (test ykwu=955) 90.8 fL 79.0-92.2 MEAN CORPUSCULAR HEMOGLOBIN (BEAKER) (test 27.9 pg 25.7-32.2 efac=991) MEAN CORPUSCULAR HEMOGLOBIN CONC (BEAKER) (test 30.7 GM/DL 32.3-36.5 ukdy=559) RED CELL DISTRIBUTION WIDTH (BEAKER) (test 17.9 % 11.6-14.4 gcrp=133) PLATELET COUNT (BEAKER) (test lobx=766) 211 K/CU MM 150-450 MEAN PLATELET VOLUME (BEAKER) (test csxt=138) 10.3 fL 9.4-12.4 NUCLEATED RED BLOOD CELLS (BEAKER) (test 0 /100 WBC 0-0 asay=483) NEUTROPHILS RELATIVE PERCENT (BEAKER) (test 73 % mnvk=998) LYMPHOCYTES RELATIVE PERCENT (BEAKER) (test 12 % zyhz=329) MONOCYTES RELATIVE PERCENT (BEAKER) (test 12 % owzp=906) EOSINOPHILS RELATIVE PERCENT (BEAKER) (test 2 % ociw=399) BASOPHILS RELATIVE PERCENT (BEAKER) (test 0 % uitd=259) NEUTROPHILS ABSOLUTE COUNT (BEAKER) (test 6.49 K/ L 1.78-5.38 qqgj=455) LYMPHOCYTES ABSOLUTE COUNT (BEAKER) (test 1.11 K/ L 1.32-3.57 oyyw=349) MONOCYTES ABSOLUTE COUNT (BEAKER) (test 1.08 K/ L 0.30-0.82 ntyd=710) EOSINOPHILS ABSOLUTE COUNT (BEAKER) (test 0.19 K/ L 0.04-0.54 sufp=421) BASOPHILS ABSOLUTE COUNT (BEAKER) (test 0.02 K/ L 0.01-0.08 omtl=167) IMMATURE GRANULOCYTES-RELATIVE PERCENT (BEAKER) 0 % 0-1 (test hqih=7911) POCT-GLUCOSE [id number] 06:39:00 Test Item Value Reference Range Comments POC-GLUCOSE METER (BEAKER) 239 mg/dL 70-110 TESTED AT [address] (test ajvo=0187) [facility] [address] POCT-GLUCOSE [id number] 23:40:00 Test Item Value Reference Range Comments POC-GLUCOSE METER (BEAKER) 234 mg/dL 70-110 TESTED AT [address] (test ssnk=7346) [place] [id number] POCT-GLUCOSE [id number] 17:26:00 Test Item Value Reference Range Comments POC-GLUCOSE METER (BEAKER) 257 mg/dL 70-110 TESTED AT [address] (test cjtx=2916) [facility] [address] BASIC METABOLIC [id number] 16:15:00 Test Item Value Reference Range Comments SODIUM (BEAKER) (test 140 meq/L 136-145 xipz=905) POTASSIUM (BEAKER) (test 4.6 meq/L 3.5-5.1 athj=443) CHLORIDE (BEAKER) (test 111 meq/L 98-107 mrwf=619) CO2 (BEAKER) (test 25 meq/L 22-29 qksz=332) BLOOD UREA NITROGEN 24 mg/dL 7-21 (BEAKER) (test eaar=645) CREATININE (BEAKER) (test 1.21 mg/dL 0.57-1.25 kwqy=104) GLUCOSE RANDOM (BEAKER) 195 mg/dL 70-105 (test uxzc=731) CALCIUM (BEAKER) (test 8.2 mg/dL 8.4-10.2 qvqs=385) EGFR (BEAKER) (test 71 mL/min/1.73 sq m ESTIMATED GFR IS NOT npga=2967) ACCURATE CREATININE CLEARANCE IN PREDICTING GLOMERULAR FILTRATION RATE. ESTIMATED GFR IS NOT APPLICABLE FOR DIALYSIS PATIENTS. RETICULOCYTE [id number] 15:59:00 Test Item Value Reference Range Comments RETICULOCYTE COUNT PCT (BEAKER) (test hgsc=074) 2.3 % 0.5-1.8 HEPATIC FUNCTION [id number] 13:31:00 Test Item Value Reference Range Comments TOTAL PROTEIN (BEAKER) (test 4.8 gm/dL 6.0-8.3 Specimen slightly hemolyzed wjld=982) ALBUMIN (BEAKER) (test 1.2 g/dL 3.5-5.0 Specimen slightly hemolyzed cbbe=9278) BILIRUBIN TOTAL (BEAKER) (test 0.2 mg/dL 0.2-1.2 Specimen slightly hemolyzed xifd=762) BILIRUBIN DIRECT (BEAKER) (test 0.1 mg/dL 0.1-0.5 Specimen slightly hemolyzed txct=264) ALKALINE PHOSPHATASE (BEAKER) 74 U/L 40-150 (test pffh=039) AST (SGOT) (BEAKER) (test 38 U/L 5-34 Specimen slightly hemolyzed zhjg=656) ALT (SGPT) (BEAKER) (test 19 U/L 6-55 Specimen slightly hemolyzed jmgs=884) LACTATE DEHYDROGENASE (LDH)[id number] 13:30:00 Test Item Value Reference Range Comments LACTATE DEHYDROGENASE (BEAKER) 338 U/L 125-220 Specimen slightly hemolyzed (test dviu=463) CBC W/PLT COUNT & AUTO [id number] 13:17:00 Test Item Value Reference Range Comments WHITE BLOOD CELL COUNT (BEAKER) (test mrya=199) 11.2 K/ L 3.5-10.5 RED BLOOD CELL COUNT (BEAKER) (test wrxh=410) 3.14 M/ L 4.63-6.08 HEMOGLOBIN (BEAKER) (test qtmz=976) 8.6 GM/DL 13.7-17.5 HEMATOCRIT (BEAKER) (test scav=922) 28.2 % 40.1-51.0 MEAN CORPUSCULAR VOLUME (BEAKER) (test qhvg=950) 89.8 fL 79.0-92.2 MEAN CORPUSCULAR HEMOGLOBIN (BEAKER) (test 27.4 pg 25.7-32.2 tlub=144) MEAN CORPUSCULAR HEMOGLOBIN CONC (BEAKER) (test 30.5 GM/DL 32.3-36.5 jsbh=777) RED CELL DISTRIBUTION WIDTH (BEAKER) (test 17.2 % 11.6-14.4 fzjj=962) PLATELET COUNT (BEAKER) (test nnhf=117) 196 K/CU MM 150-450 MEAN PLATELET VOLUME (BEAKER) (test yddx=359) 10.2 fL 9.4-12.4 NUCLEATED RED BLOOD CELLS (BEAKER) (test 0 /100 WBC 0-0 pjnf=987) NEUTROPHILS RELATIVE PERCENT (BEAKER) (test 79 % wtoo=812) LYMPHOCYTES RELATIVE PERCENT (BEAKER) (test 9 % vzhr=348) MONOCYTES RELATIVE PERCENT (BEAKER) (test 11 % mcqt=352) EOSINOPHILS RELATIVE PERCENT (BEAKER) (test 1 % rnqx=381) BASOPHILS RELATIVE PERCENT (BEAKER) (test 0 % rhxb=452) NEUTROPHILS ABSOLUTE COUNT (BEAKER) (test 8.88 K/ L 1.78-5.38 arnj=312) LYMPHOCYTES ABSOLUTE COUNT (BEAKER) (test 0.96 K/ L 1.32-3.57 fcmv=011) MONOCYTES ABSOLUTE COUNT (BEAKER) (test 1.26 K/ L 0.30-0.82 bjwg=850) EOSINOPHILS ABSOLUTE COUNT (BEAKER) (test 0.06 K/ L 0.04-0.54 qobj=827) BASOPHILS ABSOLUTE COUNT (BEAKER) (test 0.02 K/ L 0.01-0.08 jore=730) IMMATURE GRANULOCYTES-RELATIVE PERCENT (BEAKER) 0 % 0-1 (test yzdy=7342) POCT-GLUCOSE [id number] 12:30:00 Test Item Value Reference Range Comments POC-GLUCOSE METER (BEAKER) 193 mg/dL 70-110 TESTED AT [facility] [address] [facility] (test ltic=9544) [facility] [address] VANCOMYCIN LEVEL, [id number] 09:00:00 Test Item Value Reference Range Comments VANCOMYCIN RANDOM (BEAKER) (test zgsb=750) 22.6 ug/mL Reference Range: No [id number] 07:29:00 Test Item Value Reference Range Comments MAGNESIUM (BEAKER) (test oniz=751) 1.9 mg/dL 1.6-2.6 BASIC METABOLIC [id number] 07:29:00 Test Item Value Reference Range Comments SODIUM (BEAKER) (test 141 meq/L 136-145 rcmy=703) POTASSIUM (BEAKER) (test 3.7 meq/L 3.5-5.1 okda=190) CHLORIDE (BEAKER) (test 113 meq/L 98-107 evoj=537) CO2 (BEAKER) (test 23 meq/L 22-29 rwgl=229) BLOOD UREA NITROGEN 23 mg/dL 7-21 (BEAKER) (test pfav=486) CREATININE (BEAKER) (test 1.11 mg/dL 0.57-1.25 ntze=950) GLUCOSE RANDOM (BEAKER) 100 mg/dL 70-105 (test whmd=814) CALCIUM (BEAKER) (test 8.2 mg/dL 8.4-10.2 sxeh=981) EGFR (BEAKER) (test 78 mL/min/1.73 sq m ESTIMATED GFR IS NOT akxk=0632) ACCURATE CREATININE CLEARANCE IN PREDICTING GLOMERULAR FILTRATION RATE. ESTIMATED GFR IS NOT APPLICABLE FOR DIALYSIS PATIENTS. CBC W/PLT COUNT & AUTO [id number] 07:00:00 Test Item Value Reference Range Comments WHITE BLOOD CELL COUNT (BEAKER) (test zghb=287) 11.9 K/ L 3.5-10.5 RED BLOOD CELL COUNT (BEAKER) (test unvt=998) 2.36 M/ L 4.63-6.08 HEMOGLOBIN (BEAKER) (test yvcc=849) 6.6 GM/DL 13.7-17.5 HEMATOCRIT (BEAKER) (test nrnd=322) 21.2 % 40.1-51.0 MEAN CORPUSCULAR VOLUME (BEAKER) (test xqoj=134) 89.8 fL 79.0-92.2 MEAN CORPUSCULAR HEMOGLOBIN (BEAKER) (test 28.0 pg 25.7-32.2 nqqh=653) MEAN CORPUSCULAR HEMOGLOBIN CONC (BEAKER) (test 31.1 GM/DL 32.3-36.5 uxed=204) RED CELL DISTRIBUTION WIDTH (BEAKER) (test 18.6 % 11.6-14.4 sfag=264) PLATELET COUNT (BEAKER) (test uvlu=958) 210 K/CU MM 150-450 MEAN PLATELET VOLUME (BEAKER) (test wvzj=482) 10.7 fL 9.4-12.4 NUCLEATED RED BLOOD CELLS (BEAKER) (test 0 /100 WBC 0-0 udzs=158) NEUTROPHILS RELATIVE PERCENT (BEAKER) (test 77 % jfzo=511) LYMPHOCYTES RELATIVE PERCENT (BEAKER) (test 10 % xpde=829) MONOCYTES RELATIVE PERCENT (BEAKER) (test 12 % xszo=436) EOSINOPHILS RELATIVE PERCENT (BEAKER) (test 0 % pfok=651) BASOPHILS RELATIVE PERCENT (BEAKER) (test 0 % zdle=235) NEUTROPHILS ABSOLUTE COUNT (BEAKER) (test 9.19 K/ L 1.78-5.38 umss=770) LYMPHOCYTES ABSOLUTE COUNT (BEAKER) (test 1.21 K/ L 1.32-3.57 ukgd=112) MONOCYTES ABSOLUTE COUNT (BEAKER) (test 1.38 K/ L 0.30-0.82 tosh=936) EOSINOPHILS ABSOLUTE COUNT (BEAKER) (test 0.03 K/ L 0.04-0.54 svop=852) BASOPHILS ABSOLUTE COUNT (BEAKER) (test 0.04 K/ L 0.01-0.08 ygpq=951) IMMATURE GRANULOCYTES-RELATIVE PERCENT (BEAKER) 0 % 0-1 (test wauy=3646) POCT-GLUCOSE [id number] 06:47:00 Test Item Value Reference Range Comments POC-GLUCOSE METER (BEAKER) 128 mg/dL 70-110 TESTED AT [address] (test fwlw=7364) [place] [id number] POCT-GLUCOSE [id number] 01:25:00 Test Item Value Reference Range Comments POC-GLUCOSE METER (BEAKER) 81 mg/dL 70-110 TESTED AT [address] (test mgaa=6903) [place] [address] VANCOMYCIN LEVEL, [id number] 21:59:00 Test Item Value Reference Range Comments VANCOMYCIN TROUGH (BEAKER) (test ubkd=060) 26.3 ug/mL 10.0-20.0 WAIT FOR LEVEL TO RETURN BEFORE GIVING DOSE. If vancomycin trough level > 20 , HOLD dose and contact MD and pharmacist.POCT-GLUCOSE [id number] 17:48:00 Test Item Value Reference Range Comments POC-GLUCOSE METER (BEAKER) 96 mg/dL 70-110 TESTED AT [address] (test dlcd=6002) [place] [id number] POCT-GLUCOSE [id number] 15:40:00 Test Item Value Reference Range Comments POC-GLUCOSE METER (BEAKER) 106 mg/dL 70-110 TESTED AT [facility] [address] [facility] (test btat=4603) [facility] [address] CBC W/PLT COUNT & AUTO [id number] 14:21:00 Test Item Value Reference Range Comments WHITE BLOOD CELL COUNT (BEAKER) (test sxdw=002) 12.6 K/ L 3.5-10.5 RED BLOOD CELL COUNT (BEAKER) (test abnq=976) 2.64 M/ L 4.63-6.08 HEMOGLOBIN (BEAKER) (test kpqx=539) 7.3 GM/DL 13.7-17.5 HEMATOCRIT (BEAKER) (test zdic=698) 23.8 % 40.1-51.0 MEAN CORPUSCULAR VOLUME (BEAKER) (test ryvn=413) 90.2 fL 79.0-92.2 MEAN CORPUSCULAR HEMOGLOBIN (BEAKER) (test 27.7 pg 25.7-32.2 eopf=372) MEAN CORPUSCULAR HEMOGLOBIN CONC (BEAKER) (test 30.7 GM/DL 32.3-36.5 qcmg=498) RED CELL DISTRIBUTION WIDTH (BEAKER) (test 18.2 % 11.6-14.4 nztg=497) PLATELET COUNT (BEAKER) (test kfow=835) 225 K/CU MM 150-450 MEAN PLATELET VOLUME (BEAKER) (test otmn=066) 10.6 fL 9.4-12.4 NUCLEATED RED BLOOD CELLS (BEAKER) (test 0 /100 WBC 0-0 apfn=848) (CELLAVISION MANUAL DIFF)[id number] 14:21:00 Test Item Value Reference Range Comments NEUTROPHILS - REL (CELLAVISION)(BEAKER) (test 89 % fids=4380) LYMPHOCYTES - REL (CELLAVISION)(BEAKER) (test 5 % rwhz=6177) MONOCYTES - REL (CELLAVISION)(BEAKER) (test 5 % ekgz=6263) ATYPICAL LYMPHOCYTES - REL (CELLAVISION)(BEAKER) 1 % 0-0 (test huqe=5776) NEUTROPHILS - ABS (CELLAVISION)(BEAKER) (test 11.21 K/ul 1.78-5.38 xvwg=5278) LYMPHOCYTES - ABS (CELLAVISION)(BEAKER) (test 0.63 K/ul 1.32-3.57 dvub=7667) MONOCYTES - ABS (CELLAVISION)(BEAKER) (test 0.63 K/uL 0.30-0.82 lzki=6749) ATYPICAL LYMPHOCYTES - ABS (CELLAVISION)(BEAKER) 0.13 K/uL 0.00-0.00 (test gmim=7939) TOTAL COUNTED (BEAKER) (test tnun=3133) 100 PLT MORPHOLOGY (BEAKER) (test zyhd=899) Normal SMUDGE CELLS (BEAKER) (test dytc=9361) Present ANISOCYTOSIS (BEAKER) (test epnp=525) 1+ few POIKILOCYTES (BEAKER) (test robq=091) 2+ moderate CESILIA CELLS (BEAKER) (test wclo=421) 1+ few PLATELET CONCENTRATION (CELLAVISION)(BEAKER) Adequate (test rerz=8084) Received comment: User comments: Slide comments:POCT-GLUCOSE [id number] 12: 02:00 Test Item Value Reference Range Comments POC-GLUCOSE METER (BEAKER) 84 mg/dL 70-110 TESTED AT [facility] [address] [facility] (test gllr=6403) [facility] [address] [id number] 07:12:00 Test Item Value Reference Range Comments MAGNESIUM (BEAKER) (test ttwd=689) 1.6 mg/dL 1.6-2.6 BASIC METABOLIC [id number] 07:12:00 Test Item Value Reference Range Comments SODIUM (BEAKER) (test 140 meq/L 136-145 sgmr=522) POTASSIUM (BEAKER) (test 3.7 meq/L 3.5-5.1 pfqz=961) CHLORIDE (BEAKER) (test 110 meq/L 98-107 knlf=365) CO2 (BEAKER) (test 25 meq/L 22-29 nolq=621) BLOOD UREA NITROGEN 27 mg/dL 7-21 (BEAKER) (test ydvo=298) CREATININE (BEAKER) (test 1.07 mg/dL 0.57-1.25 asac=804) GLUCOSE RANDOM (BEAKER) 67 mg/dL 70-105 (test imeo=492) CALCIUM (BEAKER) (test 8.5 mg/dL 8.4-10.2 dbip=917) EGFR (BEAKER) (test 81 mL/min/1.73 sq m ESTIMATED GFR IS NOT fzdx=2520) ACCURATE CREATININE CLEARANCE IN PREDICTING GLOMERULAR FILTRATION RATE. ESTIMATED GFR IS NOT APPLICABLE FOR DIALYSIS PATIENTS. POCT-GLUCOSE [id number] 06:24:00 Test Item Value Reference Range Comments POC-GLUCOSE METER (BEAKER) 71 mg/dL 70-110 TESTED AT [address] (test lone=8581) [place] [address] POCT-GLUCOSE [id number] 00:20:00 Test Item Value Reference Range Comments POC-GLUCOSE METER (BEAKER) 106 mg/dL 70-110 TESTED AT [address] (test rhtp=1956) [place] [address] POCT-GLUCOSE [id number] 18:43:00 Test Item Value Reference Range Comments POC-GLUCOSE METER (BEAKER) 104 mg/dL 70-110 TESTED AT [address] (test gxlp=0994) [place] [id number] POCT-GLUCOSE [id number] 12:56:00 Test Item Value Reference Range Comments POC-GLUCOSE METER (BEAKER) 113 mg/dL 70-110 TESTED AT [address] (test pzjs=7712) [place] [address] CBC W/PLT COUNT & AUTO [id number] 11:01:00 Test Item Value Reference Range Comments WHITE BLOOD CELL COUNT (BEAKER) (test wdnn=116) 12.9 K/ L 3.5-10.5 RED BLOOD CELL COUNT (BEAKER) (test idsw=671) 2.66 M/ L 4.63-6.08 HEMOGLOBIN (BEAKER) (test bgaq=951) 7.5 GM/DL 13.7-17.5 HEMATOCRIT (BEAKER) (test xxmf=177) 24.1 % 40.1-51.0 MEAN CORPUSCULAR VOLUME (BEAKER) (test mgdw=356) 90.6 fL 79.0-92.2 MEAN CORPUSCULAR HEMOGLOBIN (BEAKER) (test 28.2 pg 25.7-32.2 xuqv=168) MEAN CORPUSCULAR HEMOGLOBIN CONC (BEAKER) (test 31.1 GM/DL 32.3-36.5 ulve=653) RED CELL DISTRIBUTION WIDTH (BEAKER) (test 18.4 % 11.6-14.4 bsas=675) PLATELET COUNT (BEAKER) (test ukok=073) 208 K/CU MM 150-450 MEAN PLATELET VOLUME (BEAKER) (test onxd=348) 10.8 fL 9.4-12.4 NUCLEATED RED BLOOD CELLS (BEAKER) (test 0 /100 WBC 0-0 aqiw=847) (CELLAVISION MANUAL DIFF)[id number] 11:01:00 Test Item Value Reference Range Comments NEUTROPHILS - REL (CELLAVISION)(BEAKER) (test 86 % xnzm=6007) LYMPHOCYTES - REL (CELLAVISION)(BEAKER) (test 1 % xgfy=6320) MONOCYTES - REL (CELLAVISION)(BEAKER) (test 9 % yuhp=1369) BANDS - REL (CELLAVISION)(BEAKER) (test 3 % 0-10 njmr=5325) ATYPICAL LYMPHOCYTES - REL (CELLAVISION)(BEAKER) 1 % 0-0 (test lhbs=8638) NEUTROPHILS - ABS (CELLAVISION)(BEAKER) (test 11.09 K/ul 1.78-5.38 zlan=3342) LYMPHOCYTES - ABS (CELLAVISION)(BEAKER) (test 0.13 K/ul 1.32-3.57 jrml=2545) MONOCYTES - ABS (CELLAVISION)(BEAKER) (test 1.16 K/uL 0.30-0.82 eqfx=5953) BANDS - ABS (CELLAVISION)(BEAKER) (test 0.39 K/uL 0.00-0.80 gmpg=0832) ATYPICAL LYMPHOCYTES - ABS (CELLAVISION)(BEAKER) 0.13 K/uL 0.00-0.00 (test tjch=4181) TOTAL COUNTED (BEAKER) (test ftjy=4283) 100 WBC MORPHOLOGY (BEAKER) (test udrn=739) Normal PLT MORPHOLOGY (BEAKER) (test cssh=677) Normal POLYCHROMATOPHILLIC RBCS(BEAKER) (test rlgh=787) 1+ few HYPOCHROMIA (BEAKER) (test bjbz=585) 1+ few ARTIFACT (CELLAVISION)(BEAKER) (test bodr=4215) Present PLATELET CONCENTRATION (CELLAVISION)(BEAKER) Adequate (test feam=9485) Received comment: User comments: Slide comments:POCT-GLUCOSE [id number] 07: 57:00 Test Item Value Reference Range Comments POC-GLUCOSE METER (BEAKER) 96 mg/dL 70-110 TESTED AT [facility] [address] [facility] (test uyyq=5847) [place] [address] [id number] 07:34:00 Test Item Value Reference Range Comments MAGNESIUM (BEAKER) (test plgs=074) 1.8 mg/dL 1.6-2.6 BASIC METABOLIC [id number] 07:34:00 Test Item Value Reference Range Comments SODIUM (BEAKER) (test 138 meq/L 136-145 wrlj=128) POTASSIUM (BEAKER) (test 4.0 meq/L 3.5-5.1 usnz=290) CHLORIDE (BEAKER) (test 108 meq/L 98-107 dsid=982) CO2 (BEAKER) (test 26 meq/L 22-29 pjbk=580) BLOOD UREA NITROGEN 33 mg/dL 7-21 (BEAKER) (test hcho=982) CREATININE (BEAKER) (test 1.10 mg/dL 0.57-1.25 qygi=482) GLUCOSE RANDOM (BEAKER) 79 mg/dL 70-105 (test asue=922) CALCIUM (BEAKER) (test 8.4 mg/dL 8.4-10.2 lakt=228) EGFR (BEAKER) (test 79 mL/min/1.73 sq m ESTIMATED GFR IS NOT ofpk=7977) ACCURATE CREATININE CLEARANCE IN PREDICTING GLOMERULAR FILTRATION RATE. ESTIMATED GFR IS NOT APPLICABLE FOR DIALYSIS PATIENTS.
--- NOTE | 2018-12-24 04:25 | ER ---
Nurse's Notes [facility] Name: Leonardo Kumari Age: 78 yrs Sex: Male : 1940 Arrival Date: 12/24/2018 Time: 02:19 Bed 8 Private MD: Diagnosis: Bleeding from J-tube wound. ( Bleeding resolved ) Presentation: 12/24 02:19 Presenting complaint: EMS states: Pt had J-tube removed within the last 2 weeks, wound tl2 site has opened up and started to bleed tonight. Soaked through 2 dressings. No signs of infection. Transition of care: patient was received from another setting of care (long-term care facility), [facility]. Onset of symptoms was December 24, 2018. Risk Assessment: Do you want to hurt yourself or someone else? Patient reports no desire to harm self or others. Initial Sepsis Screen: Does the patient meet any 2 criteria? No. Patient's initial sepsis screen is negative. Does the patient have a suspected source of infection? No. Patient's initial sepsis screen is negative. Care prior to arrival: None. 02:19 Method Of Arrival: EMS: [facility] tl2 02:19 Acuity: [place] 4 tl2 Triage Assessment: 02:24 General: Appears in no apparent distress. uncomfortable, cachectic, Behavior is tl2 inappropriate for age. Pain: Unable to use pain scale. Patient appears to be moaning. Neuro: Level of Consciousness is awake, confused, Oriented to Pt does not speak. This is baseline mentation. Respiratory: Airway is patent Respiratory effort is even, unlabored, Respiratory pattern is regular, symmetrical. GI: No signs and/or symptoms were reported involving the gastrointestinal system. : No signs and/or symptoms were reported regarding the genitourinary system. Derm: Wound noted left upper quadrant Wound is site from J-tube removal, oozing blood from site. Historical: - Allergies: 02:24 Ibuprofen; tl2 02:24 Stadol; tl2 02:24 Versed; tl2 - Home Meds: 02:24 acetaminophen-codeine 300-30 mg Oral tab 1 tab every 6 hours for Pain [Active]; tl2 amlodipine 5 mg tab 1 tab once daily [Active]; aspirin 81 mg Oral TbEC 1 tab once daily [Active]; atorvastatin 80 mg Oral tab 1 tab nightly [Active]; carvedilol 25 mg Oral tab 1 tab nightly [Active]; clopidogrel 75 mg Oral tab 1 tab once daily [Active]; cyclobenzaprine 10 mg Oral tab 1 tab every 8 hours for Muscle Spasm [Active]; docusate sodium 50 mg/5 mL Oral liqd 10 mL once daily [Active]; hydralazine 25 mg Oral tab every 8 hours for Hypertension [Active]; Levemir FlexTouch 100 unit/mL (3 mL) subcutaneous inpn 10 unit daily [Active]; multivitamin with minerals Oral 5 mL daily [Active]; Novolog 100 unit/mL Sub-Q soln twice a day [Active]; paroxetine HCl 10 mg Oral tab 1 tab once daily [Active]; Pepcid 40 mg Oral tab nightly [Active]; tramadol 50 mg Oral tab 1 tab every 6 hours for Pain [Active]; - PMHx: 02:24 Allergic rhinitis; Aphasia; constipation; Contracture; Dementia; Depression; Diabetes - tl2 NIDDM; DYSPHAGIA; GERD; GI Bleed; Hemiplegia/hemiparesis; High Cholesterol; Hypertension; hypotension; MRSA; Paraplegia; UTI; - PSHx: 02:24 j-tube; tl2 - Immunization history:: Adult Immunizations up to date. - Social history:: Smoking status: Patient/guardian denies using tobacco. - Ebola Screening: : No symptoms or risks identified at this time. Screenin:28 Abuse screen: Denies threats or abuse. Nutritional screening: No deficits noted. tl2 Tuberculosis screening: No symptoms or risk factors identified. Fall Risk Ambulatory Aid- None/Bed Rest/Nurse Assist (0 pts). Mental Status- Overestimates/Forgets Limitations (15 pts.). Assessment: 02:25 General: see triage assessment. tl2 03:51 Reassessment: wound cleansed with sterile saline and betadine. MD at bedside, wound tl2 packed with iodoform gauze and dressed with 4x4's and ABD pad. No bleeding noted. 03:52 Reassessment: [facility] to transport pt back to [facility]. tl2 04:27 Reassessment: [facility] arrived to transport to [facility]. tl2 Vital Signs: 02:24 BP 149 / 65; Pulse 87; Resp 18; Temp 97.9(A); Pulse Ox 97% on R/A; Weight 77.11 kg; tl2 Height 5 ft. 9 in. (175.26 cm); 03:52 BP 100 / 76; Pulse 86; Resp 20; Pulse Ox 97% on R/A; tl2 02:24 Body Mass Index 25.10 (77.11 kg, 175.26 cm) tl2 ED Course: 02:19 Patient arrived in ED. tl2 02:21 Triage completed. tl2 02:24 Arm band placed on right wrist. tl2 02:28 Patient has correct armband on for positive identification. Bed in low position. Call tl2 light in reach. Side rails up X2. 02:40 José Miguel Aguilar MD is Attending Physician. pkl 03:51 Dressings: ABD pad X 1; left upper quadrant. tl2 04:27 Hannah Maher, RN is Primary Nurse. tl2 04:27 No provider procedures requiring assistance completed. Patient did not have IV access tl2 during this emergency room visit. Administered Medications: No medications were administered Outcome: 04:24 Discharge ordered by . [place] 04:27 Discharged to [facility]. Report called to [facility] tl2 04:27 Condition: stable 04:27 Discharge instructions given to [facility]. 04:29 Patient left the ED. tl2 Signatures: oJsé Miguel Aguilar MD MD pkl Knox, Taylor, RN RN tl2
--- NOTE | 2018-12-24 04:25 | EDPHYS ---
Physician Documentation [facility] Name: Leonardo Kumari Age: 78 yrs Sex: Male : 1940 Arrival Date: 12/24/2018 Time: 02:19 Bed 8 Private MD: ED Physician José Miguel Aguilar HPI: 12/24 03:45 This 78 yrs old Black Male presents to ER via EMS with complaints of Wound Check. pkl 03:45 The affected area is on the left upper quadrant. Patient had J-tube removed 2 weeks pkl ago. Wound started bleeding tonight.. Historical: - Allergies: 02:24 Ibuprofen; tl2 02:24 Stadol; tl2 02:24 Versed; tl2 - Home Meds: 02:24 acetaminophen-codeine 300-30 mg Oral tab 1 tab every 6 hours for Pain [Active]; tl2 amlodipine 5 mg tab 1 tab once daily [Active]; aspirin 81 mg Oral TbEC 1 tab once daily [Active]; atorvastatin 80 mg Oral tab 1 tab nightly [Active]; carvedilol 25 mg Oral tab 1 tab nightly [Active]; clopidogrel 75 mg Oral tab 1 tab once daily [Active]; cyclobenzaprine 10 mg Oral tab 1 tab every 8 hours for Muscle Spasm [Active]; docusate sodium 50 mg/5 mL Oral liqd 10 mL once daily [Active]; hydralazine 25 mg Oral tab every 8 hours for Hypertension [Active]; Levemir FlexTouch 100 unit/mL (3 mL) subcutaneous inpn 10 unit daily [Active]; multivitamin with minerals Oral 5 mL daily [Active]; Novolog 100 unit/mL Sub-Q soln twice a day [Active]; paroxetine HCl 10 mg Oral tab 1 tab once daily [Active]; Pepcid 40 mg Oral tab nightly [Active]; tramadol 50 mg Oral tab 1 tab every 6 hours for Pain [Active]; - PMHx: 02:24 Allergic rhinitis; Aphasia; constipation; Contracture; Dementia; Depression; Diabetes - tl2 NIDDM; DYSPHAGIA; GERD; GI Bleed; Hemiplegia/hemiparesis; High Cholesterol; Hypertension; hypotension; MRSA; Paraplegia; UTI; - PSHx: 02:24 j-tube; tl2 - Immunization history:: Adult Immunizations up to date. - Social history:: Smoking status: Patient/guardian denies using tobacco. - Ebola Screening: : No symptoms or risks identified at this time. ROS: 04:16 Eyes: Negative for injury, pain, redness, and discharge, ENT: Negative for injury, pkl pain, and discharge, Neck: Negative for injury, pain, and swelling, Cardiovascular: Negative for chest pain, palpitations, and edema, Respiratory: Negative for shortness of breath, cough, wheezing, and pleuritic chest pain. 04:16 Abdomen/GI: Positive for bleeding from J-tube wound left upper quadrant. 04:16 Back: Negative for acute changes. 04:16 MS/extremity: Negative for acute changes. 04:16 Skin: Negative for rash. 04:16 Neuro: Negative for altered mental status. Exam: 04:16 Head/Face: Normocephalic, atraumatic. Eyes: Pupils equal round and reactive to light, pkl extra-ocular motions intact. Lids and lashes normal. Conjunctiva and sclera are non-icteric and not injected. Cornea within normal limits. Periorbital areas with no swelling, redness, or edema. ENT: Nares patent. No nasal discharge, no septal abnormalities noted. Tympanic membranes are normal and external auditory canals are clear. Oropharynx with no redness, swelling, or masses, exudates, or evidence of obstruction, uvula midline. Mucous membranes moist. Neck: Trachea midline, no thyromegaly or masses palpated, and no cervical lymphadenopathy. Supple, full range of motion without nuchal rigidity, or vertebral point tenderness. No Meningismus. Chest/axilla: Normal chest wall appearance and motion. Nontender with no deformity. No lesions are appreciated. Cardiovascular: Regular rate and rhythm with a normal S1 and S2. No gallops, murmurs, or rubs. Normal PMI, no JVD. No pulse deficits. Respiratory: Lungs have equal breath sounds bilaterally, clear to auscultation and percussion. No rales, rhonchi or wheezes noted. No increased work of breathing, no retractions or nasal flaring. 04:16 Abdomen/GI: Inspection: blood clots noted in J-tube wound left upper quadrant. No active bleeding noted. 04:16 Back: Exam negative for acute changes. 04:16 Musculoskeletal/extremity: Exam is negative for acute changes. 04:16 Neuro: Orientation: appropriate for stated age, Mentation: appropriate for stated age, Cranial nerves: grossly normal, Motor: is normal. Vital Signs: 02:24 BP 149 / 65; Pulse 87; Resp 18; Temp 97.9(A); Pulse Ox 97% on R/A; Weight 77.11 kg; tl2 Height 5 ft. 9 in. (175.26 cm); 03:52 BP 100 / 76; Pulse 86; Resp 20; Pulse Ox 97% on R/A; tl2 02:24 Body Mass Index 25.10 (77.11 kg, 175.26 cm) tl2 Procedures: 04:16 J-tube wound cleaned and packed with Iodoform tube. pkl MDM: 02:40 Patient medically screened. pkl 04:16 Data reviewed: vital signs, nurses notes. pkl Administered Medications: No medications were administered Disposition: 12/24/18 04:24 Discharged to Home. Impression: Bleeding from J-tube wound. ( Bleeding resolved ). - Condition is Stable. - Medication Reconciliation Form, Thank You Letter, Antibiotic Education, Prescription Opioid Use form. - Follow up: Private Physician; When: 2 - 3 days; Reason: Re-evaluation by your physician. - Problem is new. - Symptoms have improved. Signatures: José Miguel Aguilar MD MD pkl Hannah Maher RN RN tl2 Corrections: (The following items were deleted from the chart) 04:29 04:24 12/24/2018 04:24 Discharged to Home. Impression: Bleeding from J-tube wound. ( tl2 Bleeding resolved ). Condition is Stable. Forms are Medication Reconciliation Form, Thank You Letter, Antibiotic Education, Prescription Opioid Use. Follow up: Private Physician; When: 2 - 3 days; Reason: Re-evaluation by your physician. Problem is new. Symptoms have improved. pkl
[2018-12-24 04:59] VITALS: TEMP 97.9; O2SAT 97
[2018-12-24 05:01] VITALS: BP 100/76
== END 2018-12-24 04:29 | disposition home or self-care (01) ==
LOC: ER 02:15
DX: K94.21 Gastrostomy hemorrhage (principal); I10 Essential (primary) hypertension; E78.00 Pure hypercholesterolemia, unspecified; E11.9 Type 2 diabetes mellitus without complications; F32.9 Major depressive disorder, single episode, unspecified; K21.9 Gastro-esophageal reflux disease without esophagitis; F03.90 Unspecified dementia, unspecified severity, without behavioral disturbance, psychotic disturbance, mood disturbance, and anxiety; Z79.82 Long term (current) use of aspirin; Z79.4 Long term (current) use of insulin; Z88.5 Allergy status to narcotic agent; Z88.6 Allergy status to analgesic agent; Z88.8 Allergy status to other drugs, medicaments and biological substances
CPT/HCPCS: 99283

== ENCOUNTER 2018-12-24 19:22 | Emergency (ER) | payer OTHER ==
--- OUTSIDE RECORDS SUMMARY | 2018-12-24 19:26 | XMS REPORT | Clinical Summary ---
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6 oz) 08/10/2018 5:00 PM TRACK ANNOUNCER Height - - Body Mass Index - [...] 08/11/2018 12:31 Results for this HEMATOCRIT PM TRACK ANNOUNCER procedure are in the results section. POCT-GLUCOSE METER Routine 08/11/2018 11:51 Results for this AM TRACK ANNOUNCER procedure are in the results section. POCT-GLUCOSE METER Routine 08/11/2018 6:16 Results for this AM TRACK ANNOUNCER procedure are in the results section. CBC W/PLT COUNT & AUTO Routine 08/11/2018 1:57 Results for this DIFFERENTIAL AM TRACK ANNOUNCER procedure are in the results section. CBC W/PLT COUNT & AUTO Routine 08/11/2018 1:57 Results for this DIFFERENTIAL AM TRACK ANNOUNCER procedure are in the results section. PHOSPHORUS Routine 08/11/2018 1:57 Results for this AM TRACK ANNOUNCER procedure are in the results section. MAGNESIUM Routine 08/11/2018 1:57 Results for this AM TRACK ANNOUNCER procedure are in the results section. CALCIUM, IONIZED Routine 08/11/2018 1:57 Results for this AM TRACK ANNOUNCER procedure are in the results section. HEMOGLOBIN A1C Routine 08/11/2018 1:57 Results for this AM TRACK ANNOUNCER procedure are in the results section. BASIC METABOLIC PANEL Routine 08/11/2018 1:57 Results for this (7) AM TRACK ANNOUNCER procedure are in the results section. HEMOGLOBIN AND Routine 08/11/2018 1:57 Results for this HEMATOCRIT AM TRACK ANNOUNCER procedure are in the results section. POCT-GLUCOSE METER Routine 08/11/2018 1:35 Results for this AM TRACK ANNOUNCER procedure are in the results section. POCT-GLUCOSE METER Routine 08/10/2018 10:54 Results for this PM TRACK ANNOUNCER procedure are in the results section. CBC W/PLT COUNT & AUTO STAT 08/10/2018 6:20 Results for this DIFFERENTIAL PM TRACK ANNOUNCER procedure are in the results section. HEMOGLOBIN AND Routine 08/10/2018 6:20 Results for this HEMATOCRIT PM TRACK ANNOUNCER procedure are in the results section. HEMOGLOBIN A1C AP Routine 08/10/2018 6:20 Results for this PM TRACK ANNOUNCER procedure are in the results section. PHOSPHORUS STAT 08/10/2018 6:20 Results for this PM TRACK ANNOUNCER procedure are in the results section. MAGNESIUM STAT 08/10/2018 6:20 Results for this PM TRACK ANNOUNCER procedure are in the results section. COMPREHENSIVE STAT 08/10/2018 6:20 Results for this METABOLIC PANEL PM TRACK ANNOUNCER procedure are in the results section. CBC W/PLT COUNT & AUTO STAT 08/10/2018 6:20 Results for this DIFFERENTIAL PM TRACK ANNOUNCER procedure are in the results section. POCT-GLUCOSE METER Routine 08/10/2018 4:38 Results for this PM TRACK ANNOUNCER procedure are in the results section. RHYTHM STRIP - SCAN 08/02/2018 8:20 AM TRACK ANNOUNCER TRANSFUSION SERVICE 07/16/2018 6:01 REPORT - SCAN PM TRACK ANNOUNCER PREPARE LEUKO-REDUCED Routine 07/15/2018 11:54 Results for this RBC PM TRACK ANNOUNCER procedure are in the results section. TRANSFUSION SERVICE 07/15/2018 6:01 REPORT - SCAN PM TRACK ANNOUNCER POCT-GLUCOSE METER Routine 07/15/2018 8:18 Results for this AM TRACK ANNOUNCER procedure are in the results section. CBC W/PLT COUNT & AUTO Routine 07/15/2018 7:11 Results for this DIFFERENTIAL AM TRACK ANNOUNCER procedure are in the results section. BASIC METABOLIC PANEL Routine 07/15/2018 7:11 Results for this (7) AM TRACK ANNOUNCER procedure are in the results section. HAPTOGLOBIN Routine 07/15/2018 7:11 Results for this AM TRACK ANNOUNCER procedure are in the results section. CBC W/PLT COUNT & AUTO Routine 07/15/2018 7:11 Results for this DIFFERENTIAL AM TRACK ANNOUNCER procedure are in the results section. POCT-GLUCOSE METER Routine 07/15/2018 6:37 Results for this AM TRACK ANNOUNCER procedure are in the results section. POCT-GLUCOSE METER Routine 07/14/2018 11:36 Results for this PM TRACK ANNOUNCER procedure are in the results section. POCT-GLUCOSE METER Routine 07/14/2018 5:23 Results for this PM TRACK ANNOUNCER procedure are in the results section. BASIC METABOLIC PANEL Routine 07/14/2018 3:47 Results for this (7) PM TRACK ANNOUNCER procedure are in the results section. PERIPHERAL BLOOD SMEAR AP Routine 07/14/2018 3:47 Results for this - PATHOLOGIST REVIEW PM TRACK ANNOUNCER procedure are in the results section. RETICULOCYTE COUNT Routine 07/14/2018 3:47 Results for this PM TRACK ANNOUNCER procedure are in the results section. CBC W/PLT COUNT & AUTO Routine 07/14/2018 1:03 Results for this DIFFERENTIAL PM TRACK ANNOUNCER procedure are in the results section. HEPATIC FUNCTION PANEL Routine 07/14/2018 1:03 Results for this PM TRACK ANNOUNCER procedure are in the results section. CBC W/PLT COUNT & AUTO Routine 07/14/2018 1:03 Results for this DIFFERENTIAL PM TRACK ANNOUNCER procedure are in the results section. LACTATE DEHYDROGENASE Routine 07/14/2018 1:03 Results for this (LDH) PM TRACK ANNOUNCER procedure are in the results section. TRANSFUSE Routine 07/14/2018 12:32 LEUKO-REDUCED RED PM TRACK ANNOUNCER BLOOD CELLS POCT-GLUCOSE METER Routine 07/14/2018 12:01 Results for this PM TRACK ANNOUNCER procedure are in the results section. VANCOMYCIN LEVEL, Routine 07/14/2018 8:37 Results for this RANDOM AM TRACK ANNOUNCER procedure are in the results section. POCT-GLUCOSE METER Routine 07/14/2018 6:45 Results for this AM TRACK ANNOUNCER procedure are in the results section. CBC W/PLT COUNT & AUTO Routine 07/14/2018 6:10 Results for this DIFFERENTIAL AM TRACK ANNOUNCER procedure are in the results section. MAGNESIUM Routine 07/14/2018 6:10 Results for this AM TRACK ANNOUNCER procedure are in the results section. BASIC METABOLIC PANEL Routine 07/14/2018 6:10 Results for this (7) AM TRACK ANNOUNCER procedure are in the results section. CBC W/PLT COUNT & AUTO Routine 07/14/2018 6:10 Results for this DIFFERENTIAL AM TRACK ANNOUNCER procedure are in the results section. POCT-GLUCOSE METER Routine 07/14/2018 1:16 Results for this AM TRACK ANNOUNCER procedure are in the results section. VANCOMYCIN LEVEL, Timed 07/13/2018 9:11 Results for this TROUGH PM TRACK ANNOUNCER procedure are in the results section. TRANSFUSION SERVICE 07/13/2018 6:03 REPORT - SCAN PM TRACK ANNOUNCER POCT-GLUCOSE METER Routine 07/13/2018 5:42 Results for this PM TRACK ANNOUNCER procedure are in the results section. POCT-GLUCOSE METER Routine 07/13/2018 3:39 Results for this PM TRACK ANNOUNCER procedure are in the results section. REPORT OF PROCEDURE - 07/13/2018 3:20 ENDOSCOPY URL PM TRACK ANNOUNCER UPPER ENDOSCOPY 07/13/2018 3:00 Melena PM TRACK ANNOUNCER POCT-GLUCOSE METER Routine 07/13/2018 11:58 Results for this AM TRACK ANNOUNCER procedure are in the results section. (CELLAVISION MANUAL Routine 07/13/2018 5:54 Results for this DIFF) AM TRACK ANNOUNCER procedure are in the results section. CBC W/PLT COUNT & AUTO Routine 07/13/2018 5:54 Results for this DIFFERENTIAL AM TRACK ANNOUNCER procedure are in the results section. MAGNESIUM Routine 07/13/2018 5:54 Results for this AM TRACK ANNOUNCER procedure are in the results section. BASIC METABOLIC PANEL Routine 07/13/2018 5:54 Results for this (7) AM TRACK ANNOUNCER procedure are in the results section. CBC W/PLT COUNT & AUTO Routine 07/13/2018 5:54 Results for this DIFFERENTIAL AM TRACK ANNOUNCER procedure are in the results section. POCT-GLUCOSE METER Routine 07/13/2018 5:49 Results for this AM TRACK ANNOUNCER procedure are in the results section. POCT-GLUCOSE METER Routine 07/13/2018 12:11 Results for this AM TRACK ANNOUNCER procedure are in the results section. POCT-GLUCOSE METER Routine 07/12/2018 6:40 Results for this PM TRACK ANNOUNCER procedure are in the results section. POCT-GLUCOSE METER Routine 07/12/2018 12:43 Results for this PM TRACK ANNOUNCER procedure are in the results section. ECG 12-LEAD Routine 07/12/2018 9:22 Results for this AM TRACK ANNOUNCER procedure are in the results section. POCT-GLUCOSE METER Routine 07/12/2018 7:37 Results for this AM TRACK ANNOUNCER procedure are in the results section. (CELLAVISION MANUAL Routine 07/12/2018 6:21 Results for this DIFF) AM TRACK ANNOUNCER procedure are in the results section. CBC W/PLT COUNT & AUTO Routine 07/12/2018 6:21 Results for this DIFFERENTIAL AM TRACK ANNOUNCER procedure are in the results section. TYPE AND SCREEN, Routine 07/12/2018 6:21 Results for this AUTOMATED AM TRACK ANNOUNCER procedure are in the results section. MAGNESIUM Routine 07/12/2018 6:21 Results for this AM TRACK ANNOUNCER procedure are in the results section. BASIC METABOLIC PANEL Routine 07/12/2018 6:21 Results for this (7) AM TRACK ANNOUNCER procedure are in the results section. CBC W/PLT COUNT & AUTO Routine 07/12/2018 6:21 Results for this DIFFERENTIAL AM TRACK ANNOUNCER procedure are in the results section. after 12/23/2017 Results POC-Glucose meter (12/19/2018 6:05 AM CDT)Only the most recent of41 resultswithin the time period is included. POC-Glucose Meter 135 (H)Comment: TESTED AT 70 - 110 mg/dL [place] [id number] [facility] [place] [address] Specimen Blood Performing Organization Address City/State/Zipcode Phone Number [address] [phone] CENTER CBC with platelet count + automated diff (12/19/2018 5:15 AM CDT)Only the most recent of13 resultswithin the time period is included. WBC 8.1 3.5 - 10.5 K/L [facility] RBC 3.47 (L) 4.63 - 6.08 M/L [facility] Hemoglobin 9.9 (L) 13.7 - 17.5 GM/DL [facility] Hematocrit 32.1 (L) 40.1 - 51.0 % [facility] MCV 92.5 (H) 79.0 - 92.[address] [facility] MCH 28.5 25.7 - 32.[address] [facility] MCHC 30.8 (L) 32.3 - 36.5 GM/DL [facility] RDW 15.9 (H) 11.6 - 14.4 % [facility] Platelets 172 150 - 450 K/CU MM [facility] MPV 10.2 9.4 - 12.[address] [facility] nRBC 0 0 - 0 /[address] [facility] % Neutros 72 % [facility] % Lymphs 14 % [facility] % Monos 10 % [facility] % Eos 4 % [facility] % Baso 0 % [facility] # Neutros 5.78 (H) 1.78 - 5.38 K/L [facility] # Lymphs 1.10 (L) 1.32 - 3.57 K/L [facility] # Monos 0.80 0.30 - 0.82 K/L [facility] # Eos 0.32 0.04 - 0.54 K/L [facility] # Baso 0.03 0.01 - 0.08 K/L [facility] Immature Granulocytes-Relative 0 0 - 1 % [facility] Specimen Blood Performing Organization Address City/State/Zipcode Phone Number [facility] [address] [place] [address] [phone] CENTER Basic Metabolic Panel (12/19/2018 5:15 AM CDT)Only the most recent of10 resultswithin the time period is included. Sodium 138 136 - 145 meq/L [facility] Potassium 4.0Comment: Specimen slightly 3.5 - 5.1 meq/L [facility] hemolyzed [facility] [place] Chloride 110 (H) 98 - 107 meq/L [facility] CO2 24 22 - 29 meq/L [facility] BUN 13 7 - 21 mg/dL [facility] Creatinine 1.13Comment: Specimen 0.57 - 1.25 mg/dL [facility] slightly hemolyzed [facility] Glucose 110 (H) 70 - 105 mg/dL [facility] Calcium 7.5 (L) 8.4 - 10.2 mg/dL [facility] EGFR 76Comment: ESTIMATED GFR IS mL/min/1.73 sq m [facility] NOT ACCURATE CREATININE [facility] CLEARANCE IN PREDICTING GLOMERULAR FILTRATION RATE. ESTIMATED GFR IS NOT APPLICABLE FOR DIALYSIS PATIENTS. Specimen Blood Performing Organization Address City/State/Zipcode Phone Number [facility] [address] [place] [address] CENTER IR G-Tube Replacement w/Fluoro (12/18/2018 11:35 AM CDT) Specimen Narrative Performed At FINAL REPORT [facility] Jejunostomy catheter exchange History: Malfunctioning jejunostomy catheter. Modality: Fluoroscopy Sedation: None Anesthesia:Two percent Lidocaine without epinephrine. Approach:Existing right lower quadrant jejunostomy catheter Estimated blood loss:< 5 cc. Specimen: None. tower crane operator: Santos Parish MD. [employer] Supervisor: MD Jatin. Fluoroscopy Time: 0.9 min. Reference [...] then removed over a guidewire. A 14 Mauritian ROSA jejunostomy catheter was advanced over a guidewire into the jejunum. Contrast injected through the feeding port demonstrated that the catheter is appropriately positioned. The retention balloon was inflated. The patient tolerated the procedure well. Impression: Technically successful uncomplicated exchange of a jejunostomy catheter. The catheter is ready for immediate use. Signed: Santos Parish MD Report Verified Date/Time:12/18/2018 12:21:43 Reading Location: [place] [address] Angio Body Reading Room Procedure Note Interface, External Ris In - 12/18/2018 12:23 PM CDT FINAL REPORT Jejunostomy catheter exchange History: Malfunctioning jejunostomy catheter. Modality: Fluoroscopy Sedation: None Anesthesia: Two percent Lidocaine without epinephrine. Approach: Existing right lower quadrant jejunostomy catheter Estimated blood loss: < 5 cc. Specimen: None. tower crane operator: Santos Parish MD. [employer] Supervisor: MD Jatin. Fluoroscopy Time: 0.9 min. Reference [...] then removed over a guidewire. A 14 Maur[place] ROSA jejunostomy catheter was advanced over a guidewire into the jejunum. Contrast injected through the feeding port demonstrated that the catheter is appropriately positioned. The retention balloon was inflated. The patient tolerated the procedure well. Impression: Technically successful uncomplicated exchange of a jejunostomy catheter. The catheter is ready for immediate use. Signed: Santos Parish MD Report Verified Date/Time: 12/18/2018 12:21:43 Reading Location: [facility] P048 Angio Body Reading Room Performing Organization Address City/[facility] Phone Number GE RIS Prothrombin time/INR (12/18/2018 4:22 AM CDT) Protime 14.8 (H) 11.7 - 14.[address] [facility] INR 1.2 <=5.[address] [facility] Specimen Blood Narrative Performed At RECOMMENDED COUMADIN/WARFARIN INR THERAPY [facility] RANGES STANDARD DOSE: 2.0 - 3.0 Includes: PROPHYLAXIS for venous thrombosis, systemic embolization; TREATMENT for venous thrombosis and/or pulmonary embolus. HIGH RISK: Target INR is 2.5-3.5 for patients with mechanical heart valves. Performing Organization Address [facility] Phone Number [address] [address] CENTER Creatinine (12/18/2018 4:22 AM CDT) Creatinine 1.24 0.57 - 1.25 mg/dL [facility] EGFR 69Comment: ESTIMATED GFR IS mL/min/1.73 sq m [facility] NOT ACCURATE CREATININE [facility] CLEARANCE IN PREDICTING GLOMERULAR FILTRATION RATE. ESTIMATED GFR IS NOT APPLICABLE FOR DIALYSIS PATIENTS. Specimen Blood Performing Organization Address [facility] Phone Number [address] [address] [phone] CENTER Vancomycin level, random (12/18/2018 4:22 AM CDT)Only the most recent of2 resultswithin the time period is included. Vancomycin Rm 17.5 ug/mL [facility] Specimen Blood Narrative Performed At Reference Range: No Normals [facility] Performing Organization Address [facility] Phone Number [address] [address] [phone] CENTER Vancomycin level, trough (12/17/2018 4:52 AM CDT)Only the most recent of2 resultswithin the time period is included. Vancomycin Tr 27.4 (H) 10.0 - 20.0 ug/mL [facility] Specimen Blood Narrative Performed At Draw 30 min prior to scheduled dose, HOLD if [facility] level > 20 mcg/mL, biju MILIAN. Performing Organization Address City/State/Zipcode Phone Number [facility] [address] [place] [address] [place] [address] abdomen/pelvis without iv contrast (12/15/2018 5:00 PM CDT) Specimen Narrative Performed At FINAL REPORT [email or web address] INDICATION: Pain at PEG tube and J-tube [...] MD Report Verified Date/Time:12/15/2018 17:43:35 Reading Location: [facility] B1 C013Y CT Body Reading Room Procedure [...] Report Verified Date/Time: 12/15/2018 17:43:35 Reading Location: [facility] B1 C013Y CT Body Reading Room Performing Organization Address City/State/Zipcode Phone Number [facility] Blood Culture - Routine (Right Venipuncture) (12/15/2018 1:08 PM CDT) Result No growth in [address] [facility] Specimen Blood Performing Organization Address City/State/Zipcode Phone Number [address] [place] [address] [phone] [place] Lactic acid, venous (12/15/2018 4:56 AM CDT) Lactate, Venous 1.2Comment: Specimen 0.5 - 2.2 mmol/L [facility] slightly hemolyzed [facility] [place] Specimen Blood Narrative Performed At Post transfusion [facility] Performing Organization Address City/State/Zipcode Phone Number [address] [address] [place] Urinalysis w/Microscopic + Reflex to Culture (12/15/2018 3:12 AM CDT) Color, UA Light Yellow [facility] Clarity, UA Hazy [facility] Specific [place], UA 1.009 1.001 - 1.[address] [facility] pH, UA 6.5 5.0 - 8.[address] [facility] Protein, UA 100 mg/dL (A) Negative [facility] Glucose, UA 500 mg/dL (A) Negative [facility] Ketones, UA Negative Negative [facility] Bilirubin, UA Negative Negative [facility] Blood, UA Trace (A) Negative [facility] Nitrite, UA Negative Negative [facility] Leukocytes, UA Large (A) Negative [facility] Urobilinogen, UA 0.2 0.2 - 1.0 mg/dL [facility] RBC, UA 3 /HPF [facility] WBC, UA 33Comment: Wbc clumps /HPF [facility] Bacteria, UA Few [facility] Mucus Rare [facility] Hyaline Casts, UA 2 /LPF [facility] Specimen Source [facility] Specimen Urine Performing Organization Address City/[facility] Phone Number [address] [address] [place] Urine culture (12/15/2018 3:12 AM CDT) Result <10,000 col/mL skin danie [facility] Specimen Urine Performing Organization Address [facility] Phone Number [address] [phone] [place] RHYTHM STRIP - SCAN (10/15/2018 9:20 AM CDT)Only the most recent of2 resultswithin the time period is included. Narrative Performed At Hemoglobin and hematocrit (08/11/2018 12:31 PM TRACK ANNOUNCER)Only the most recent of3 resultswithin the time period is included. Hemoglobin 9.2 (L) 13.7 - 17.5 GM/DL [facility] Hematocrit 30.1 (L) 40.1 - 51.0 % [facility] Specimen Blood Performing Organization Address [facility] Phone Number [address] [address] [place] Calcium, Ionized (08/11/2018 1:57 AM TRACK ANNOUNCER) Calcium, Ion 1.09 (L) 1.12 - 1.27 mmol/L [facility] pH, Blood 7.[address] [facility] Specimen Blood Performing Organization Address City/[facility] Phone Number [address] [address] CENTER Phosphorus (08/11/2018 1:57 AM TRACK ANNOUNCER)Only the most recent of2 resultswithin the time period is included. Phosphorus 3.2 2.3 - 4.7 mg/dL [facility] Specimen Blood Performing Organization Address City/[facility] Phone Number [address] [phone] CENTER Magnesium (08/11/2018 1:57 AM TRACK ANNOUNCER)Only the most recent of5 resultswithin the time period is included. Magnesium 1.8 1.6 - 2.6 mg/dL [facility] Specimen Blood Performing Organization Address City/[facility]/Zipcode Phone Number [address] [phone] [place] Hemoglobin A1c (08/11/2018 1:57 AM TRACK ANNOUNCER)Only the most recent of2 resultswithin the time period is included. Hemoglobin A1C 6.4 (H) 4.3 - 6.1 % [facility] Specimen Blood Performing Organization Address City/[facility] Phone Number [address] [phone] [place] Comprehensive metabolic panel (08/10/2018 6:20 PM TRACK ANNOUNCER) Protein, Total 7.4 6.0 - 8.3 gm/dL [facility] Albumin 2.1 (L) 3.5 - 5.0 g/dL [facility] Alkaline Phosphatase 142 40 - 150 U/L [facility] Total Bilirubin 0.2 0.2 - 1.2 mg/dL [facility] Sodium 136 136 - 145 meq/L [facility] Potassium 4.0 3.5 - 5.1 meq/L [facility] Chloride 102 98 - 107 meq/L [facility] CO2 29 22 - 29 meq/L [facility] BUN 27 (H) 7 - 21 mg/dL [facility] Creatinine 1.33 (H) 0.57 - 1.25 mg/dL [facility] Glucose 51 (L) 70 - 105 mg/dL [facility] Calcium 8.6 8.4 - 10.2 mg/dL [facility] AST 37 (H) 5 - 34 U/L [facility] ALT 27 6 - 55 U/L [facility] EGFR 63Comment: ESTIMATED GFR mL/min/1.73 sq m [facility] IS NOT ACCURATE [facility] CREATININE CLEARANCE IN PREDICTING GLOMERULAR FILTRATION RATE. ESTIMATED GFR IS NOT APPLICABLE FOR DIALYSIS PATIENTS. Specimen Blood Performing Organization Address City/[facility] Phone Number [address] [phone] [place] TRANSFUSION SERVICE REPORT - SCAN (07/16/2018 6:01 PM TRACK ANNOUNCER)Only the most recent of3 resultswithin the time period is included. Narrative Performed At Prepare Leuko-Red RBC (07/15/2018 11:54 PM TRACK ANNOUNCER) CROSSMATCH COMPATIBLE SAFETRACE TX Unit ABO O Pos SAFETRACE TX UNIT NUMBER [id number] [place] Status TRANSFUSED [facility] [place] Blood Bank Product RED BLOOD CELLS SAFET[place]ACE TX PRODUCT CODE [id number] [place] Specimen Other Performing Organization Address [facility] Phone Number [facility] [place] Haptoglobin (07/15/2018 7:11 AM TRACK ANNOUNCER) Haptoglobin 185 14 - 258 mg/dL [facility] Specimen Blood Performing Organization Address City/[facility] Phone Number [address] [address] [phone] [place] Peripheral Blood Smear - Path Review (07/14/2018 3:47 PM TRACK ANNOUNCER) RBC Morphology Polychromasia [facility] Anisocytosis [facility] [place] Poikilocytosis WBC Morphology Toxic Granulation [facility] Pathologist Review Cell counts confirmed. [facility] Pathologist: Rafaela Dowell M.D. [facility] (electronic signature) [facility] Specimen Blood Performing Organization Address City/[facility] Phone Number [facility] [address] [phone] CENTER Reticulocyte count (07/14/2018 3:47 PM TRACK ANNOUNCER) % Retic 2.3 (H) 0.5 - 1.8 % [facility] Specimen Blood Performing Organization Address [facility] Phone Number [address] [address] CENTER Lactate dehydrogenase (LDH) (07/14/2018 1:03 PM TRACK ANNOUNCER) LDH 338 (H)Comment: Specimen 125 - 220 U/L [facility] slightly hemolyzed [facility] Specimen Blood Performing Organization Address [facility] Phone Number [address] [address] [place] Hepatic function panel (07/14/2018 1:03 PM TRACK ANNOUNCER) Protein, Total 4.8 (L)Comment: Specimen 6.0 - 8.3 gm/dL [facility] hemolyzed [facility] Albumin 1.2 (L)Comment: Specimen 3.5 - 5.0 g/dL [facility] hemolyzed [facility] Total Bilirubin 0.2Comment: Specimen 0.2 - 1.2 mg/dL [facility] Bil[facility], Direct 0.1Comment: Specimen 0.1 - 0.5 mg/dL [facility] hemolyzed [facility] Alkaline Phosphatase 74 40 - 150 U/L [facility] [place] AST 38 (H)Comment: Specimen 5 - 34 U/L [facility] hemolyzed [facility] ALT 19Comment: Specimen 6 - 55 U/L [facility] hemolyzed [facility] Specimen Blood Performing Organization Address [facility] Phone Number [address] [address] [phone] CENTER Transfuse Leuko-Red RBC (07/14/2018 12:32 PM TRACK ANNOUNCER)Only the most recent of2 resultswithin the time period is included.REPORT OF PROCEDURE - ENDOSCOPY URL ( 07/13/2018 3:20 PM TRACK ANNOUNCER) Narrative Performed At Manual Differential (07/13/2018 5:54 AM TRACK ANNOUNCER)Only the most recent of2 resultswithin the time period is included. % Neutros 89 % [facility] % Lymphs 5 % [facility] % Monos 5 % [facility] % Atypical Lymphs 1 (H) 0 - 0 % [facility] # Neutros 11.21 (H) 1.78 - 5.38 K/ul [facility] # Lymphs 0.63 (L) 1.32 - 3.57 K/ul [facility] # Monos 0.63 0.30 - 0.82 K/uL [facility] # Atypical Lymphs 0.13 (H) 0.00 - 0.00 K/uL [facility] Total Counted [address] [facility] Platelet Morphology Normal [facility] Smudge Cells Present [facility] Anisocytosis 1+ few [facility] Poikilocytes 2+ moderate [facility] Newport Cells 1+ few [facility] Platelet Conc Adequate [facility] Specimen Blood Narrative Performed At Received comment: [facility] User comments: Slide comments: Performing Organization Address City/State/Zipcode Phone Number [facility] [address] [place] [address] CENTER ECG 12 lead (07/12/2018 9:22 AM TRACK ANNOUNCER) Specimen Narrative Performed At Ventricular Rate 100 BPM GE MUSE Atrial Rate 100 BPM P-R Interval 148 ms QRS Duration 90 ms Q-T Interval 344 ms QTC Calculation(Bazett) 443 ms P [place] 59 degrees R [place] -12 degrees T [place] 9 degrees Sinus rhythm with premature artial complexes Inferior infarct , age undetermined Abnormal ECG No previous ECGs available Confirmed by MD MARYJANE, IHAB ([id number]) on 07/13/2018 7:29:33 AM Procedure Note Interface, External Ris In - 07/13/2018 7:29 AM TRACK ANNOUNCER Ventricular Rate 100 BPM Atrial Rate 100 BPM P-R Interval 148 ms QRS Duration 90 ms Q-T Interval 344 ms QTC Calculation(Bazett) 443 ms P [place] 59 degrees R [place] -12 degrees T [place] 9 degrees Sinus rhythm with premature artial complexes Inferior infarct , age undetermined Abnormal ECG No previous ECGs available Confirmed by MD MARYJANE, IHAB ([id number]) on 07/13/2018 7:29:33 AM Performing Organization Address City/State/Zipcode Phone Number GE MUSE Type and screen, automated (07/12/2018 6:21 AM TRACK ANNOUNCER) ABO/RH AUTOMATED (BEAKER) O POSITIVE [facility] Ab Scrn NEGATIVE [facility] Specimen Blood Performing Organization Address City/State/Zipcode Phone Number [facility] [address] [place] [address] after 12/23/2017 Insurance Payer Benefit Plan / Group Subscriber ID Type Phone Address MEDICARE MEDICARE A B xxxxxxxxxxx Medicare MEDICAID MEDICAID [facility] xxxxxxxxx Medicaid Advance Directives For more information, please contact:[facility] [place] [address] [phone] Code Status Date Activated Date Inactivated Comments Full Code 12/15/2018 12:12 AM 12/19/2018 1:03 PM This code status was determined by: Patient Full Code 08/10/2018 8:12 PM 12/14/2018 10:50 PM This code status was determined by: Patient Full Code 07/11/2018 10:34 PM 08/10/2018 4:09 PM This code status was determined by: Patient
--- OUTSIDE RECORDS SUMMARY | 2018-12-24 19:28 | XMS REPORT ---
:1940 [facility] [address] [place] [address] Care Team Providers Name Role Phone JUAN [...] Value Reference Range Comments CULTURE (BEAKER) (test yskk=8110) No growth in 5 days POCT-GLUCOSE [id number] 06:10:00 Test Item Value Reference Range Comments POC-GLUCOSE METER (BEAKER) 135 mg/dL 70-[address] [facility] [address] [facility] (test flps=0252) [facility] [address] BASIC METABOLIC [id number] 06:01:00 Test Item Value Reference Range Comments SODIUM (BEAKER) (test 138 meq/L 136-145 lrkv=205) POTASSIUM (BEAKER) (test 4.0 meq/L 3.5-5.1 Specimen slightly dfut=507) hemolyzed CHLORIDE (BEAKER) (test 110 meq/L 98-107 bhtb=300) CO2 (BEAKER) (test 24 meq/L 22-29 mtze=744) BLOOD UREA NITROGEN 13 mg/dL 7-21 (BEAKER) (test iazp=061) CREATININE (BEAKER) (test 1.13 mg/dL 0.57-1.25 Specimen slightly qjys=719) hemolyzed GLUCOSE RANDOM (BEAKER) 110 mg/dL 70-105 (test vlte=196) CALCIUM (BEAKER) (test 7.5 mg/dL 8.4-10.2 rjad=234) EGFR (BEAKER) (test 76 mL/min/1.73 sq m ESTIMATED GFR IS NOT nkkd=4267) ACCURATE CREATININE CLEARANCE IN PREDICTING GLOMERULAR FILTRATION RATE. ESTIMATED GFR IS NOT APPLICABLE FOR DIALYSIS PATIENTS. CBC W/PLT COUNT & AUTO [id number] 05:41:00 Test Item Value Reference Range Comments WHITE BLOOD CELL COUNT (BEAKER) (test ygya=990) 8.1 K/ L 3.5-10.5 RED BLOOD CELL COUNT (BEAKER) (test ujlq=136) 3.47 M/ L 4.63-6.08 HEMOGLOBIN (BEAKER) (test sbfo=516) 9.9 GM/DL 13.7-17.5 HEMATOCRIT (BEAKER) (test kpja=458) 32.1 % 40.1-51.0 MEAN CORPUSCULAR VOLUME (BEAKER) (test jnye=176) 92.5 fL 79.0-92.2 MEAN CORPUSCULAR HEMOGLOBIN (BEAKER) (test 28.5 pg 25.7-32.2 sapl=673) MEAN CORPUSCULAR HEMOGLOBIN CONC (BEAKER) (test 30.8 GM/DL 32.3-36.5 aitc=139) RED CELL DISTRIBUTION WIDTH (BEAKER) (test 15.9 % 11.6-14.4 zjsp=790) PLATELET COUNT (BEAKER) (test qzlw=531) 172 K/CU MM 150-450 MEAN PLATELET VOLUME (BEAKER) (test jcyc=962) 10.2 fL 9.4-12.4 NUCLEATED RED BLOOD CELLS (BEAKER) (test 0 /100 WBC 0-0 dvhd=002) NEUTROPHILS RELATIVE PERCENT (BEAKER) (test 72 % jzvz=416) LYMPHOCYTES RELATIVE PERCENT (BEAKER) (test 14 % viyk=493) MONOCYTES RELATIVE PERCENT (BEAKER) (test 10 % vpmu=376) EOSINOPHILS RELATIVE PERCENT (BEAKER) (test 4 % cgyp=105) BASOPHILS RELATIVE PERCENT (BEAKER) (test 0 % wqda=882) NEUTROPHILS ABSOLUTE COUNT (BEAKER) (test 5.78 K/ L 1.78-5.38 jtiq=226) LYMPHOCYTES ABSOLUTE COUNT (BEAKER) (test 1.10 K/ L 1.32-3.57 pnvu=304) MONOCYTES ABSOLUTE COUNT (BEAKER) (test 0.80 K/ L 0.30-0.82 fqwd=101) EOSINOPHILS ABSOLUTE COUNT (BEAKER) (test 0.32 K/ L 0.04-0.54 zhcl=974) BASOPHILS ABSOLUTE COUNT (BEAKER) (test 0.03 K/ L 0.01-0.08 kmph=670) IMMATURE GRANULOCYTES-RELATIVE PERCENT (BEAKER) 0 % 0-1 (test kzql=8609) POCT-GLUCOSE [id number] 00:59:00 Test Item Value Reference Range Comments POC-GLUCOSE METER (BEAKER) 118 mg/dL 70-110 TESTED AT [address] (test ojnq=1586) [place] [id number] POCT-GLUCOSE [id number] 18:00:00 Test Item Value Reference Range Comments POC-GLUCOSE METER (BEAKER) 163 mg/dL 70-110 TESTED AT [address] (test ckix=3523) [place] [id number] POCT-GLUCOSE [id number] 12:52:00 Test Item Value Reference Range Comments POC-GLUCOSE METER (BEAKER) 161 mg/dL 70-110 TESTED AT [address] (test qmhx=4700) [place] [address] ANG, REPLACE G TUBE, W/ [id number] 12:21:00Please replace feeding jejunostomy tube w/ shorter J tubeReason for exam:->J tube repositioningFINAL REPORT Jejunostomy catheter exchange History: Malfunctioning jejunostomy catheter. Modality: Fluoroscopy Sedation: None Anesthesia: Two percent Lidocaine without epinephrine. Approach: Existing right lower quadrant jejunostomy catheter Estimated blood loss: < 5 cc. Specimen: None. cartridge loading operator: Santos Parish MD. Counselling Psychologist: MD Jatin. Fluoroscopy Time: 0.9 min.Reference Air [...] then removed over a guidewire. A 14 [place] ROSA jejunostomy catheter was advanced over a guidewire into the jejunum. Contrast injected through the feeding port demonstrated that the catheter is appropriately positioned. The retention balloon was inflated. The patient tolerated the procedure well. Impression : Technically successful uncomplicated exchange of a jejunostomy catheter. The catheter is ready for immediate use. Signed: Santos Parish MDReport Verified Date/Time: 2018 12:21:43 Reading Location: [place] [address] Angio Body Reading Room POCT- GLUCOSE [id number] 07:46:00 Test Item Value Reference Range Comments POC-GLUCOSE METER (BEAKER) 140 mg/dL 70-[address] [facility] [address] [facility] (test munh=7354) [facility] [address] POCT-GLUCOSE [id number] 06:37:00 Test Item Value Reference Range Comments POC-GLUCOSE METER (BEAKER) 156 mg/dL 70-[address] [facility] [address] [facility] (test glwb=8862) [facility] [address] [id number] 05:25:00 Test Item Value Reference Range Comments CREATININE (BEAKER) (test 1.24 mg/dL 0.57-1.25 hieu=205) EGFR (BEAKER) (test 69 mL/min/1.73 sq m ESTIMATED GFR IS NOT hafr=2504) ACCURATE CREATININE CLEARANCE IN PREDICTING GLOMERULAR FILTRATION RATE. ESTIMATED GFR IS NOT APPLICABLE FOR DIALYSIS PATIENTS. PROTHROMBIN [id number] 05:21:00 Test Item Value Reference Range Comments PROTIME (BEAKER) (test ecct=606) 14.8 seconds 11.7-14.7 INR (BEAKER) (test vlcy=220) 1.2 <=5.9 RECOMMENDED COUMADIN/WARFARIN INR THERAPY RANGESSTANDARD DOSE: 2.0 - 3.0 Includes: PROPHYLAXIS forvenous thrombosis, systemic embolization; TREATMENT for venous thrombosis and/or pulmonary embolus.HIGH RISK: Target INR is 2.5-3.5 for patients with mechanical heart valves.VANCOMYCIN LEVEL, [id number] 05: 21:00 Test Item Value Reference Range Comments VANCOMYCIN RANDOM (BEAKER) (test ysxj=706) 17.5 ug/mL Reference Range: No NormalsCBC W/PLT COUNT & AUTO [id number] 05: 19:00 Test Item Value Reference Range Comments WHITE BLOOD CELL COUNT (BEAKER) (test dmrt=216) 10.7 K/ L 3.5-10.5 RED BLOOD CELL COUNT (BEAKER) (test brnk=423) 3.37 M/ L 4.63-6.08 HEMOGLOBIN (BEAKER) (test gbhl=295) 9.8 GM/DL 13.7-17.5 HEMATOCRIT (BEAKER) (test kmyu=023) 31.7 % 40.1-51.0 MEAN CORPUSCULAR VOLUME (BEAKER) (test mgnj=180) 94.1 fL 79.0-92.2 MEAN CORPUSCULAR HEMOGLOBIN (BEAKER) (test 29.1 pg 25.7-32.2 xzgg=969) MEAN CORPUSCULAR HEMOGLOBIN CONC (BEAKER) (test 30.9 GM/DL 32.3-36.5 tiqn=758) RED CELL DISTRIBUTION WIDTH (BEAKER) (test 16.1 % 11.6-14.4 ogzp=192) PLATELET COUNT (BEAKER) (test foaa=942) 176 K/CU MM 150-450 MEAN PLATELET VOLUME (BEAKER) (test vhnw=344) 9.9 fL 9.4-12.4 NUCLEATED RED BLOOD CELLS (BEAKER) (test 0 /100 WBC 0-0 llpm=323) NEUTROPHILS RELATIVE PERCENT (BEAKER) (test 80 % osip=727) LYMPHOCYTES RELATIVE PERCENT (BEAKER) (test 9 % vncg=006) MONOCYTES RELATIVE PERCENT (BEAKER) (test 9 % qzbr=777) EOSINOPHILS RELATIVE PERCENT (BEAKER) (test 1 % rcgc=375) BASOPHILS RELATIVE PERCENT (BEAKER) (test 0 % ugok=951) NEUTROPHILS ABSOLUTE COUNT (BEAKER) (test 8.58 K/ L 1.78-5.38 fbax=825) LYMPHOCYTES ABSOLUTE COUNT (BEAKER) (test 0.92 K/ L 1.32-3.57 hwyo=324) MONOCYTES ABSOLUTE COUNT (BEAKER) (test 1.01 K/ L 0.30-0.82 zedk=307) EOSINOPHILS ABSOLUTE COUNT (BEAKER) (test 0.14 K/ L 0.04-0.54 dqye=427) BASOPHILS ABSOLUTE COUNT (BEAKER) (test 0.03 K/ L 0.01-0.08 pdpw=212) IMMATURE GRANULOCYTES-RELATIVE PERCENT (BEAKER) 0 % 0-1 (test rnzn=4302) POCT-GLUCOSE [id number] 23:42:00 Test Item Value Reference Range Comments POC-GLUCOSE METER (BEAKER) 141 mg/dL 70-110 TESTED AT [address] (test nrtf=6994) [facility] [address] POCT-GLUCOSE [id number] 18:27:00 Test Item Value Reference Range Comments POC-GLUCOSE METER (BEAKER) 158 mg/dL 70-110 TESTED AT [address] (test lpbv=7362) [facility] [address] POCT-GLUCOSE [id number] 12:42:00 Test Item Value Reference Range Comments POC-GLUCOSE METER (BEAKER) 122 mg/dL 70-110 TESTED AT [address] (test rsox=5599) [facility] [address] POCT-GLUCOSE [id number] 06:42:00 Test Item Value Reference Range Comments POC-GLUCOSE METER (BEAKER) 102 mg/dL 70-110 TESTED AT [address] (test atic=5563) [facility] [address] BASIC METABOLIC [id number] 06:01:00 Test Item Value Reference Range Comments SODIUM (BEAKER) (test 143 meq/L 136-145 wvsw=786) POTASSIUM (BEAKER) (test 3.8 meq/L 3.5-5.1 blmg=487) CHLORIDE (BEAKER) (test 115 meq/L 98-107 snsy=483) CO2 (BEAKER) (test 25 meq/L 22-29 evft=115) BLOOD UREA NITROGEN 14 mg/dL 7-21 (BEAKER) (test gdfd=362) CREATININE (BEAKER) (test 1.30 mg/dL 0.57-1.25 thji=759) GLUCOSE RANDOM (BEAKER) 80 mg/dL 70-105 (test nrqv=101) CALCIUM (BEAKER) (test 7.6 mg/dL 8.4-10.2 mhfc=813) EGFR (BEAKER) (test 65 mL/min/1.73 sq m ESTIMATED GFR IS NOT xfku=8535) ACCURATE CREATININE CLEARANCE IN PREDICTING GLOMERULAR FILTRATION RATE. ESTIMATED GFR IS NOT APPLICABLE FOR DIALYSIS PATIENTS. Post transfusionVANCOMYCIN LEVEL, [id number] 05:57:00 Test Item Value Reference Range Comments VANCOMYCIN TROUGH (BEAKER) (test lfxu=848) 27.4 ug/mL 10.0-20.0 Draw 30 min prior to scheduled dose, HOLD if level > 20 mcg/mL, inform MD.CBC W/PLT COUNT & AUTO [id number] 05:12:00 Test Item Value Reference Range Comments WHITE BLOOD CELL COUNT (BEAKER) (test vyjr=729) 8.3 K/ L 3.5-10.5 RED BLOOD CELL COUNT (BEAKER) (test dwoc=238) 3.11 M/ L 4.63-6.08 HEMOGLOBIN (BEAKER) (test hlcc=133) 8.9 GM/DL 13.7-17.5 HEMATOCRIT (BEAKER) (test jcki=262) 29.0 % 40.1-51.0 MEAN CORPUSCULAR VOLUME (BEAKER) (test fecz=136) 93.2 fL 79.0-92.2 MEAN CORPUSCULAR HEMOGLOBIN (BEAKER) (test 28.6 pg 25.7-32.2 fvei=318) MEAN CORPUSCULAR HEMOGLOBIN CONC (BEAKER) (test 30.7 GM/DL 32.3-36.5 opca=874) RED CELL DISTRIBUTION WIDTH (BEAKER) (test 16.6 % 11.6-14.4 dtgq=261) PLATELET COUNT (BEAKER) (test baer=915) 182 K/CU MM 150-450 MEAN PLATELET VOLUME (BEAKER) (test gbyn=778) 9.8 fL 9.4-12.4 NUCLEATED RED BLOOD CELLS (BEAKER) (test 0 /100 WBC 0-0 bsgh=480) NEUTROPHILS RELATIVE PERCENT (BEAKER) (test 73 % hwbp=947) LYMPHOCYTES RELATIVE PERCENT (BEAKER) (test 14 % bygu=186) MONOCYTES RELATIVE PERCENT (BEAKER) (test 9 % tgrf=511) EOSINOPHILS RELATIVE PERCENT (BEAKER) (test 3 % kqsl=719) BASOPHILS RELATIVE PERCENT (BEAKER) (test 1 % dsua=622) NEUTROPHILS ABSOLUTE COUNT (BEAKER) (test 6.03 K/ L 1.78-5.38 wreg=221) LYMPHOCYTES ABSOLUTE COUNT (BEAKER) (test 1.15 K/ L 1.32-3.57 llex=099) MONOCYTES ABSOLUTE COUNT (BEAKER) (test 0.76 K/ L 0.30-0.82 hcyc=070) EOSINOPHILS ABSOLUTE COUNT (BEAKER) (test 0.25 K/ L 0.04-0.54 xvem=596) BASOPHILS ABSOLUTE COUNT (BEAKER) (test 0.05 K/ L 0.01-0.08 ajpq=498) IMMATURE GRANULOCYTES-RELATIVE PERCENT (BEAKER) 0 % 0-1 (test mfui=2331) POCT-GLUCOSE [id number] 23:43:00 Test Item Value Reference Range Comments POC-GLUCOSE METER (BEAKER) 84 mg/dL 70-110 TESTED AT [address] (test wnwt=5395) [place] [address] POCT-GLUCOSE [id number] 17:38:00 Test Item Value Reference Range Comments POC-GLUCOSE METER (BEAKER) 77 mg/dL 70-110 TESTED AT [address] (test zmwm=7730) [place] [address] POCT-GLUCOSE [id number] 11:50:00 Test Item Value Reference Range Comments POC-GLUCOSE METER (BEAKER) 78 mg/dL 70-110 TESTED AT [address] (test losr=5540) [place] [address] POCT-GLUCOSE [id number] 05:39:00 Test Item Value Reference Range Comments POC-GLUCOSE METER (BEAKER) 97 mg/dL 70-110 TESTED AT [address] (test erqd=3315) [place] [id number] BASIC METABOLIC [id number] 05:29:00 Test Item Value Reference Range Comments SODIUM (BEAKER) (test 144 meq/L 136-145 fwno=894) POTASSIUM (BEAKER) (test 3.8 meq/L 3.5-5.1 ovvr=359) CHLORIDE (BEAKER) (test 115 meq/L 98-107 dkno=806) CO2 (BEAKER) (test 25 meq/L 22-29 ikib=312) BLOOD UREA NITROGEN 14 mg/dL 7-21 (BEAKER) (test gssx=586) CREATININE (BEAKER) (test 1.20 mg/dL 0.57-1.25 rwpx=770) GLUCOSE RANDOM (BEAKER) 80 mg/dL 70-105 (test bhgl=595) CALCIUM (BEAKER) (test 7.9 mg/dL 8.4-10.2 rvgr=298) EGFR (BEAKER) (test 71 mL/min/1.73 sq m ESTIMATED GFR IS NOT hjhl=2824) ACCURATE CREATININE CLEARANCE IN PREDICTING GLOMERULAR FILTRATION RATE. ESTIMATED GFR IS NOT APPLICABLE FOR DIALYSIS PATIENTS. Post transfusionCBC W/PLT COUNT & AUTO [id number] 05:08:00 Test Item Value Reference Range Comments WHITE BLOOD CELL COUNT (BEAKER) (test lrmg=219) 9.9 K/ L 3.5-10.5 RED BLOOD CELL COUNT (BEAKER) (test zhjb=071) 3.20 M/ L 4.63-6.08 HEMOGLOBIN (BEAKER) (test hcjz=474) 9.2 GM/DL 13.7-17.5 HEMATOCRIT (BEAKER) (test xccg=836) 29.1 % 40.1-51.0 MEAN CORPUSCULAR VOLUME (BEAKER) (test suui=028) 90.9 fL 79.0-92.2 MEAN CORPUSCULAR HEMOGLOBIN (BEAKER) (test 28.8 pg 25.7-32.2 vdsp=172) MEAN CORPUSCULAR HEMOGLOBIN CONC (BEAKER) (test 31.6 GM/DL 32.3-36.5 pzoi=749) RED CELL DISTRIBUTION WIDTH (BEAKER) (test 17.4 % 11.6-14.4 ncyy=936) PLATELET COUNT (BEAKER) (test tssu=365) 189 K/CU MM 150-450 MEAN PLATELET VOLUME (BEAKER) (test yfbq=941) 10.2 fL 9.4-12.4 NUCLEATED RED BLOOD CELLS (BEAKER) (test 0 /100 WBC 0-0 zeax=933) NEUTROPHILS RELATIVE PERCENT (BEAKER) (test 75 % xtwn=738) LYMPHOCYTES RELATIVE PERCENT (BEAKER) (test 12 % ized=089) MONOCYTES RELATIVE PERCENT (BEAKER) (test 8 % kpbd=124) EOSINOPHILS RELATIVE PERCENT (BEAKER) (test 5 % xqho=642) BASOPHILS RELATIVE PERCENT (BEAKER) (test 0 % vfxc=860) NEUTROPHILS ABSOLUTE COUNT (BEAKER) (test 7.36 K/ L 1.78-5.38 debt=205) LYMPHOCYTES ABSOLUTE COUNT (BEAKER) (test 1.20 K/ L 1.32-3.57 pixs=223) MONOCYTES ABSOLUTE COUNT (BEAKER) (test 0.77 K/ L 0.30-0.82 xbib=671) EOSINOPHILS ABSOLUTE COUNT (BEAKER) (test 0.45 K/ L 0.04-0.54 guhq=836) BASOPHILS ABSOLUTE COUNT (BEAKER) (test 0.04 K/ L 0.01-0.08 dech=250) IMMATURE GRANULOCYTES-RELATIVE PERCENT (BEAKER) 0 % 0-1 (test wuks=2454) POCT-GLUCOSE [id number] 02:09:00 Test Item Value Reference Range Comments POC-GLUCOSE METER (BEAKER) 130 mg/dL 70-110 TESTED AT [address] (test mkcm=0992) [place] [address] POCT-GLUCOSE [id number] 00:46:00 Test Item Value Reference Range Comments POC-GLUCOSE METER (BEAKER) 71 mg/dL 70-110 TESTED AT [address] (test yelj=8590) [place] [address] POCT-GLUCOSE [id number] 23:45:00 Test Item Value Reference Range Comments POC-GLUCOSE METER (BEAKER) 80 mg/dL 70-110 TESTED AT [address] (test kchg=3729) [place] [address] POCT-GLUCOSE [id number] 18:03:00 Test Item Value Reference Range Comments POC-GLUCOSE METER (BEAKER) 128 mg/dL 70-110 TESTED AT [address] (test bril=8401) [place] [address] CT, [id number] 17:43:00FINAL REPORT INDICATION: Pain at PEG tube [...] Verified Date/Time: 12/15/2018 17:43 :35 Reading Location: [facility] C013Y CT Body Reading Room CBC W/PLT COUNT & AUTO [id number] 13:31:00 Test Item Value Reference Range Comments WHITE BLOOD CELL COUNT (BEAKER) (test hftt=256) 10.7 K/ L 3.5-10.5 RED BLOOD CELL COUNT (BEAKER) (test lgen=298) 3.52 M/ L 4.63-6.08 HEMOGLOBIN (BEAKER) (test gvze=363) 10.1 GM/DL 13.7-17.5 HEMATOCRIT (BEAKER) (test fill=710) 31.7 % 40.1-51.0 MEAN CORPUSCULAR VOLUME (BEAKER) (test xqde=246) 90.1 fL 79.0-92.2 MEAN CORPUSCULAR HEMOGLOBIN (BEAKER) (test 28.7 pg 25.7-32.2 tfev=066) MEAN CORPUSCULAR HEMOGLOBIN CONC (BEAKER) (test 31.9 GM/DL 32.3-36.5 ntug=595) RED CELL DISTRIBUTION WIDTH (BEAKER) (test 18.0 % 11.6-14.4 czyn=148) PLATELET COUNT (BEAKER) (test gkcg=845) 191 K/CU MM 150-450 MEAN PLATELET VOLUME (BEAKER) (test sbgz=198) 9.6 fL 9.4-12.4 NUCLEATED RED BLOOD CELLS (BEAKER) (test 0 /100 WBC 0-0 mkbj=946) NEUTROPHILS RELATIVE PERCENT (BEAKER) (test 78 % xuqy=142) LYMPHOCYTES RELATIVE PERCENT (BEAKER) (test 10 % gxhc=557) MONOCYTES RELATIVE PERCENT (BEAKER) (test 7 % qmcg=113) EOSINOPHILS RELATIVE PERCENT (BEAKER) (test 4 % zuun=635) BASOPHILS RELATIVE PERCENT (BEAKER) (test 0 % vnch=416) NEUTROPHILS ABSOLUTE COUNT (BEAKER) (test 8.27 K/ L 1.78-5.38 dvhs=160) LYMPHOCYTES ABSOLUTE COUNT (BEAKER) (test 1.09 K/ L 1.32-3.57 eeqa=583) MONOCYTES ABSOLUTE COUNT (BEAKER) (test 0.78 K/ L 0.30-0.82 lkrn=419) EOSINOPHILS ABSOLUTE COUNT (BEAKER) (test 0.45 K/ L 0.04-0.54 kaon=264) BASOPHILS ABSOLUTE COUNT (BEAKER) (test 0.03 K/ L 0.01-0.08 eonj=644) IMMATURE GRANULOCYTES-RELATIVE PERCENT (BEAKER) 0 % 0-1 (test wwwg=1572) POCT-GLUCOSE [id number] 11:40:00 Test Item Value Reference Range Comments POC-GLUCOSE METER (BEAKER) 172 mg/dL 70-110 TESTED AT [address] (test mzmh=8222) [place] [address] POCT-GLUCOSE [id number] 06:43:00 Test Item Value Reference Range Comments POC-GLUCOSE METER (BEAKER) 248 mg/dL 70-110 TESTED AT [address] (test mwhq=7223) [place] [address] BASIC METABOLIC [id number] 06:04:00 Test Item Value Reference Range Comments SODIUM (BEAKER) (test 144 meq/L 136-145 canf=665) POTASSIUM (BEAKER) (test 3.8 meq/L 3.5-5.1 yofw=271) CHLORIDE (BEAKER) (test 115 meq/L 98-107 dnow=753) CO2 (BEAKER) (test 24 meq/L 22-29 tmii=661) BLOOD UREA NITROGEN 19 mg/dL 7-21 (BEAKER) (test rfgq=626) CREATININE (BEAKER) (test 1.57 mg/dL 0.57-1.25 vpin=582) GLUCOSE RANDOM (BEAKER) 172 mg/dL 70-105 (test oont=203) CALCIUM (BEAKER) (test 7.9 mg/dL 8.4-10.2 tquc=189) EGFR (BEAKER) (test 52 mL/min/1.73 sq m ESTIMATED GFR IS NOT hsrl=4955) ACCURATE CREATININE CLEARANCE IN PREDICTING GLOMERULAR FILTRATION RATE. ESTIMATED GFR IS NOT APPLICABLE FOR DIALYSIS PATIENTS. Post transfusionLACTIC ACID, [id number] 05:41:00 Test Item Value Reference Range Comments LACTATE BLOOD VENOUS (2) 1.2 mmol/L 0.5-2.2 Specimen slightly hemolyzed (BEAKER) (test sgoa=7466) Post transfusionCBC W/PLT COUNT & AUTO [id number] 05:38:00 Test Item Value Reference Range Comments WHITE BLOOD CELL COUNT (BEAKER) (test kgqq=483) 12.4 K/ L 3.5-10.5 RED BLOOD CELL COUNT (BEAKER) (test wvyi=327) 3.43 M/ L 4.63-6.08 HEMOGLOBIN (BEAKER) (test uxtd=122) 9.8 GM/DL 13.7-17.5 HEMATOCRIT (BEAKER) (test npan=194) 31.8 % 40.1-51.0 MEAN CORPUSCULAR VOLUME (BEAKER) (test aqlq=634) 92.7 fL 79.0-92.2 MEAN CORPUSCULAR HEMOGLOBIN (BEAKER) (test 28.6 pg 25.7-32.2 fxza=514) MEAN CORPUSCULAR HEMOGLOBIN CONC (BEAKER) (test 30.8 GM/DL 32.3-36.5 elsk=558) RED CELL DISTRIBUTION WIDTH (BEAKER) (test 17.8 % 11.6-14.4 ljwo=426) PLATELET COUNT (BEAKER) (test oati=741) 182 K/CU MM 150-450 MEAN PLATELET VOLUME (BEAKER) (test qxhj=650) 10.1 fL 9.4-12.4 NUCLEATED RED BLOOD CELLS (BEAKER) (test 0 /100 WBC 0-0 tgad=342) NEUTROPHILS RELATIVE PERCENT (BEAKER) (test 75 % klzj=024) LYMPHOCYTES RELATIVE PERCENT (BEAKER) (test 9 % ebov=320) MONOCYTES RELATIVE PERCENT (BEAKER) (test 12 % hpzt=482) EOSINOPHILS RELATIVE PERCENT (BEAKER) (test 3 % rqfp=473) BASOPHILS RELATIVE PERCENT (BEAKER) (test 0 % shlz=948) NEUTROPHILS ABSOLUTE COUNT (BEAKER) (test 9.33 K/ L 1.78-5.38 iocr=996) LYMPHOCYTES ABSOLUTE COUNT (BEAKER) (test 1.16 K/ L 1.32-3.57 hkrf=112) MONOCYTES ABSOLUTE COUNT (BEAKER) (test 1.44 K/ L 0.30-0.82 ikle=136) EOSINOPHILS ABSOLUTE COUNT (BEAKER) (test 0.35 K/ L 0.04-0.54 nrsf=459) BASOPHILS ABSOLUTE COUNT (BEAKER) (test 0.03 K/ L 0.01-0.08 jgsa=640) IMMATURE GRANULOCYTES-RELATIVE PERCENT (BEAKER) 1 % 0-1 (test hwzn=4187) URINALYSIS W/ REFLEX URINE [id number] 05:12:00 Test Item Value Reference Range Comments COLOR (BEAKER) (test yrfv=146) Light Yellow CLARITY (BEAKER) (test jfrf=795) Hazy SPECIFIC GRAVITY UA (BEAKER) (test 1.009 1.001-1.035 bzeb=390) PH UA (BEAKER) (test igcf=389) 6.5 5.0-8.0 PROTEIN UA (BEAKER) (test lluu=516) 100 mg/dL Negative GLUCOSE UA (BEAKER) (test lbjr=962) 500 mg/dL Negative KETONES UA (BEAKER) (test sfns=996) Negative Negative BILIRUBIN UA (BEAKER) (test lftt=939) Negative Negative BLOOD UA (BEAKER) (test dxfm=859) Trace Negative NITRITE UA (BEAKER) (test eskd=852) Negative Negative LEUKOCYTE ESTERASE UA (BEAKER) (test Large Negative lchi=498) UROBILINOGEN UA (BEAKER) (test scsq=589) 0.2 mg/dL 0.2-1.0 RBC UA (BEAKER) (test vfjl=494) 3 /HPF WBC UA (BEAKER) (test clha=964) 33 /HPF Wbc clumps seen BACTERIA (BEAKER) (test jign=315) Few MUCUS (BEAKER) (test rbbv=0725) Rare HYALINE CASTS (BEAKER) (test pnyv=229) 2 /LPF SOURCE(BEAKER) (test gacz=7929) POCT-GLUCOSE [id number] 00:38:00 Test Item Value Reference Range Comments POC-GLUCOSE METER (BEAKER) 275 mg/dL 70-110 TESTED AT [address] (test otnc=4737) [place] [address] HEMOGLOBIN [id number] 13:06:00 Test Item Value Reference Range Comments HEMOGLOBIN A1C (BEAKER) (test peur=163) 6.4 % 4.3-6.1 HEMOGLOBIN [id number] 13:06:00 Test Item Value Reference Range Comments HEMOGLOBIN A1C (BEAKER) (test zqqg=278) 6.3 % 4.3-6.1 HEMOGLOBIN AND [id number] 12:45:00 Test Item Value Reference Range Comments HEMOGLOBIN (BEAKER) (test qnkl=766) 9.2 GM/DL 13.7-17.5 HEMATOCRIT (BEAKER) (test odtp=134) 30.1 % 40.1-51.0 POCT-GLUCOSE [id number] 12:00:00 Test Item Value Reference Range Comments POC-GLUCOSE METER (BEAKER) 98 mg/dL 70-110 TESTED AT [address] (test rquy=6785) [place] [address] POCT-GLUCOSE [id number] 06:19:00 Test Item Value Reference Range Comments POC-GLUCOSE METER (BEAKER) 120 mg/dL 70-110 TESTED AT [address] (test lcgz=5610) [place] [address] [id number] 02:40:00 Test Item Value Reference Range Comments PHOSPHORUS (BEAKER) (test sgcz=734) 3.2 mg/dL 2.3-4.7 [id number] 02:40:00 Test Item Value Reference Range Comments MAGNESIUM (BEAKER) (test zikq=712) 1.8 mg/dL 1.6-2.6 BASIC METABOLIC [id number] 02:40:00 Test Item Value Reference Range Comments SODIUM (BEAKER) (test 134 meq/L 136-145 pjuj=933) POTASSIUM (BEAKER) (test 4.2 meq/L 3.5-5.1 shix=818) CHLORIDE (BEAKER) (test 102 meq/L 98-107 jbio=306) CO2 (BEAKER) (test 27 meq/L 22-29 tjsi=211) BLOOD UREA NITROGEN 24 mg/dL 7-21 (BEAKER) (test dvql=316) CREATININE (BEAKER) (test 1.31 mg/dL 0.57-1.25 hawe=213) GLUCOSE RANDOM (BEAKER) 77 mg/dL 70-105 (test diqu=066) CALCIUM (BEAKER) (test 8.6 mg/dL 8.4-10.2 vujh=444) EGFR (BEAKER) (test 64 mL/min/1.73 sq m ESTIMATED GFR IS NOT zzzp=6967) ACCURATE CREATININE CLEARANCE IN PREDICTING GLOMERULAR FILTRATION RATE. ESTIMATED GFR IS NOT APPLICABLE FOR DIALYSIS PATIENTS. CALCIUM, [id number] 02:18:00 Test Item Value Reference Range Comments CALCIUM IONIZED (BEAKER) (test egfb=397) 1.09 mmol/L 1.12-1.27 PH, BLOOD (BEAKER) (test arye=8517) 7.44 HEMOGLOBIN AND [id number] 02:10:00 Test Item Value Reference Range Comments HEMOGLOBIN (BEAKER) (test fpku=014) 9.8 GM/DL 13.7-17.5 HEMATOCRIT (BEAKER) (test monm=546) 31.9 % 40.1-51.0 CBC W/PLT COUNT & AUTO [id number] 02:10:00 Test Item Value Reference Range Comments WHITE BLOOD CELL COUNT (BEAKER) (test asaf=280) 10.1 K/ L 3.5-10.5 RED BLOOD CELL COUNT (BEAKER) (test xiho=268) 3.54 M/ L 4.63-6.08 HEMOGLOBIN (BEAKER) (test eiub=812) 9.8 GM/DL 13.7-17.5 HEMATOCRIT (BEAKER) (test bade=812) 31.9 % 40.1-51.0 MEAN CORPUSCULAR VOLUME (BEAKER) (test uhxs=631) 90.1 fL 79.0-92.2 MEAN CORPUSCULAR HEMOGLOBIN (BEAKER) (test 27.7 pg 25.7-32.2 xpyg=752) MEAN CORPUSCULAR HEMOGLOBIN CONC (BEAKER) (test 30.7 GM/DL 32.3-36.5 jyor=417) RED CELL DISTRIBUTION WIDTH (BEAKER) (test 17.7 % 11.6-14.4 uyak=365) PLATELET COUNT (BEAKER) (test ryor=227) 209 K/CU MM 150-450 MEAN PLATELET VOLUME (BEAKER) (test fxzx=518) 9.9 fL 9.4-12.4 NUCLEATED RED BLOOD CELLS (BEAKER) (test 0 /100 WBC 0-0 drwm=184) NEUTROPHILS RELATIVE PERCENT (BEAKER) (test 77 % uduw=137) LYMPHOCYTES RELATIVE PERCENT (BEAKER) (test 11 % ovfm=121) MONOCYTES RELATIVE PERCENT (BEAKER) (test 10 % ubvy=327) EOSINOPHILS RELATIVE PERCENT (BEAKER) (test 2 % jmrx=724) BASOPHILS RELATIVE PERCENT (BEAKER) (test 0 % byzz=854) NEUTROPHILS ABSOLUTE COUNT (BEAKER) (test 7.78 K/ L 1.78-5.38 ymcj=340) LYMPHOCYTES ABSOLUTE COUNT (BEAKER) (test 1.07 K/ L 1.32-3.57 fxvk=092) MONOCYTES ABSOLUTE COUNT (BEAKER) (test 1.04 K/ L 0.30-0.82 fcbd=397) EOSINOPHILS ABSOLUTE COUNT (BEAKER) (test 0.17 K/ L 0.04-0.54 bpjq=954) BASOPHILS ABSOLUTE COUNT (BEAKER) (test 0.02 K/ L 0.01-0.08 vrwy=299) IMMATURE GRANULOCYTES-RELATIVE PERCENT (BEAKER) 0 % 0-1 (test rckv=3789) POCT-GLUCOSE [id number] 01:36:00 Test Item Value Reference Range Comments POC-GLUCOSE METER (BEAKER) 97 mg/dL 70-110 TESTED AT [address] (test syxw=3314) [place] [id number] POCT-GLUCOSE [id number] 22:56:00 Test Item Value Reference Range Comments POC-GLUCOSE METER (BEAKER) 70 mg/dL 70-110 TESTED AT [address] (test jbtn=7128) [place] [address] [id number] 19:59:00 Test Item Value Reference Range Comments PHOSPHORUS (BEAKER) (test fovy=347) 3.2 mg/dL 2.3-4.7 [id number] 19:59:00 Test Item Value Reference Range Comments MAGNESIUM (BEAKER) (test gjgl=775) 1.9 mg/dL 1.6-2.6 COMPREHENSIVE METABOLIC [id number] 19:59:00 Test Item Value Reference Range Comments TOTAL PROTEIN (BEAKER) 7.4 gm/dL 6.0-8.3 (test esjj=319) ALBUMIN (BEAKER) (test 2.1 g/dL 3.5-5.0 uagk=6641) ALKALINE PHOSPHATASE 142 U/L 40-150 (BEAKER) (test tzlk=799) BILIRUBIN TOTAL (BEAKER) 0.2 mg/dL 0.2-1.2 (test vaab=922) SODIUM (BEAKER) (test 136 meq/L 136-145 jeys=507) POTASSIUM (BEAKER) (test 4.0 meq/L 3.5-5.1 vtpb=391) CHLORIDE (BEAKER) (test 102 meq/L 98-107 cehu=994) CO2 (BEAKER) (test 29 meq/L 22-29 bnnt=302) BLOOD UREA NITROGEN 27 mg/dL 7-21 (BEAKER) (test bqgj=384) CREATININE (BEAKER) (test 1.33 mg/dL 0.57-1.25 xtah=685) GLUCOSE RANDOM (BEAKER) 51 mg/dL 70-105 (test wzbg=693) CALCIUM (BEAKER) (test 8.6 mg/dL 8.4-10.2 lsqe=723) AST (SGOT) (BEAKER) (test 37 U/L 5-34 zmge=003) ALT (SGPT) (BEAKER) (test 27 U/L 6-55 ufbp=605) EGFR (BEAKER) (test 63 mL/min/1.73 sq m ESTIMATED GFR IS NOT peqp=2134) ACCURATE CREATININE CLEARANCE IN PREDICTING GLOMERULAR FILTRATION RATE. ESTIMATED GFR IS NOT APPLICABLE FOR DIALYSIS PATIENTS. CBC W/PLT COUNT & AUTO [id number] 19:45:00 Test Item Value Reference Range Comments WHITE BLOOD CELL COUNT (BEAKER) (test ahyh=822) 10.5 K/ L 3.5-10.5 RED BLOOD CELL COUNT (BEAKER) (test fgzs=929) 3.65 M/ L 4.63-6.08 HEMOGLOBIN (BEAKER) (test sitm=747) 10.2 GM/DL 13.7-17.5 HEMATOCRIT (BEAKER) (test okbf=712) 33.6 % 40.1-51.0 MEAN CORPUSCULAR VOLUME (BEAKER) (test ddod=382) 92.1 fL 79.0-92.2 MEAN CORPUSCULAR HEMOGLOBIN (BEAKER) (test 27.9 pg 25.7-32.2 hwoz=356) MEAN CORPUSCULAR HEMOGLOBIN CONC (BEAKER) (test 30.4 GM/DL 32.3-36.5 sghx=192) RED CELL DISTRIBUTION WIDTH (BEAKER) (test 17.6 % 11.6-14.4 umrx=450) PLATELET COUNT (BEAKER) (test skdc=708) 213 K/CU MM 150-450 MEAN PLATELET VOLUME (BEAKER) (test tfsz=740) 10.7 fL 9.4-12.4 NUCLEATED RED BLOOD CELLS (BEAKER) (test 0 /100 WBC 0-0 aorq=253) NEUTROPHILS RELATIVE PERCENT (BEAKER) (test 81 % cgfd=650) LYMPHOCYTES RELATIVE PERCENT (BEAKER) (test 8 % mnhc=702) MONOCYTES RELATIVE PERCENT (BEAKER) (test 9 % oesz=109) EOSINOPHILS RELATIVE PERCENT (BEAKER) (test 2 % mhsv=276) BASOPHILS RELATIVE PERCENT (BEAKER) (test 0 % jwww=509) NEUTROPHILS ABSOLUTE COUNT (BEAKER) (test 8.47 K/ L 1.78-5.38 duss=545) LYMPHOCYTES ABSOLUTE COUNT (BEAKER) (test 0.79 K/ L 1.32-3.57 zcfz=796) MONOCYTES ABSOLUTE COUNT (BEAKER) (test 0.96 K/ L 0.30-0.82 aglo=415) EOSINOPHILS ABSOLUTE COUNT (BEAKER) (test 0.22 K/ L 0.04-0.54 koul=735) BASOPHILS ABSOLUTE COUNT (BEAKER) (test 0.03 K/ L 0.01-0.08 wtnl=726) IMMATURE GRANULOCYTES-RELATIVE PERCENT (BEAKER) 0 % 0-1 (test rpmw=1849) HEMOGLOBIN AND [id number] 19:43:00 Test Item Value Reference Range Comments HEMOGLOBIN (BEAKER) (test oyer=025) 10.2 GM/DL 13.7-17.5 HEMATOCRIT (BEAKER) (test fybr=727) 33.6 % 40.1-51.0 POCT-GLUCOSE [id number] 16:53:00 Test Item Value Reference Range Comments POC-GLUCOSE METER (BEAKER) 83 mg/dL 70-[address] [facility] [address] [facility] (test ndwa=6270) [place] [id number] PERIPHERAL BLOOD SMEAR - PATHOLOGIST [id number] 11:31:00 Test Item Value Reference Range Comments RBC MORPHOLOGY (BEAKER) Polychromasia (test bvwa=4527) RBC MORPHOLOGY (BEAKER) Anisocytosis (test zkmv=65814) RBC MORPHOLOGY (BEAKER) Poikilocytosis (test qrod=82090) WBC MORPHOLOGY (BEAKER) Toxic Granulation (test lwzf=7280) PERIPHERAL SMR REVIEW Cell counts confirmed. (BEAKER) (test fxur=4507) [id number] Rafaela Dowell M.D. (electronic (BEAKER) (test bdlk=7608) signature) POCT-GLUCOSE [id number] 08:24:00 Test Item Value Reference Range Comments POC-GLUCOSE METER (BEAKER) 236 mg/dL 70-110 TESTED AT [address] (test skuy=3336) [place] [id number] 07:35:00 Test Item Value Reference Range Comments HAPTOGLOBIN (BEAKER) (test ykov=050) 185 mg/dL 14-258 BASIC METABOLIC [id number] 07:34:00 Test Item Value Reference Range Comments SODIUM (BEAKER) (test 141 meq/L 136-145 camh=169) POTASSIUM (BEAKER) (test 4.2 meq/L 3.5-5.1 iqfz=221) CHLORIDE (BEAKER) (test 112 meq/L 98-107 crsz=939) CO2 (BEAKER) (test 26 meq/L 22-29 xyvc=326) BLOOD UREA NITROGEN 23 mg/dL 7-21 (BEAKER) (test gjoc=352) CREATININE (BEAKER) (test 1.23 mg/dL 0.57-1.25 yprw=810) GLUCOSE RANDOM (BEAKER) 186 mg/dL 70-105 (test fhbi=177) CALCIUM (BEAKER) (test 8.0 mg/dL 8.4-10.2 mbiv=045) EGFR (BEAKER) (test 69 mL/min/1.73 sq m ESTIMATED GFR IS NOT jlbr=3621) ACCURATE CREATININE CLEARANCE IN PREDICTING GLOMERULAR FILTRATION RATE. ESTIMATED GFR IS NOT APPLICABLE FOR DIALYSIS PATIENTS. CBC W/PLT COUNT & AUTO [id number] 07:21:00 Test Item Value Reference Range Comments WHITE BLOOD CELL COUNT (BEAKER) (test foxx=035) 8.9 K/ L 3.5-10.5 RED BLOOD CELL COUNT (BEAKER) (test idxt=244) 3.26 M/ L 4.63-6.08 HEMOGLOBIN (BEAKER) (test ushj=048) 9.1 GM/DL 13.7-17.5 HEMATOCRIT (BEAKER) (test xjgk=323) 29.6 % 40.1-51.0 MEAN CORPUSCULAR VOLUME (BEAKER) (test fmco=979) 90.8 fL 79.0-92.2 MEAN CORPUSCULAR HEMOGLOBIN (BEAKER) (test 27.9 pg 25.7-32.2 gzbb=703) MEAN CORPUSCULAR HEMOGLOBIN CONC (BEAKER) (test 30.7 GM/DL 32.3-36.5 hfdi=262) RED CELL DISTRIBUTION WIDTH (BEAKER) (test 17.9 % 11.6-14.4 szzv=171) PLATELET COUNT (BEAKER) (test uhxx=531) 211 K/CU MM 150-450 MEAN PLATELET VOLUME (BEAKER) (test webh=841) 10.3 fL 9.4-12.4 NUCLEATED RED BLOOD CELLS (BEAKER) (test 0 /100 WBC 0-0 tndv=384) NEUTROPHILS RELATIVE PERCENT (BEAKER) (test 73 % kxar=778) LYMPHOCYTES RELATIVE PERCENT (BEAKER) (test 12 % mjrr=650) MONOCYTES RELATIVE PERCENT (BEAKER) (test 12 % pmvs=034) EOSINOPHILS RELATIVE PERCENT (BEAKER) (test 2 % evzq=648) BASOPHILS RELATIVE PERCENT (BEAKER) (test 0 % anyv=119) NEUTROPHILS ABSOLUTE COUNT (BEAKER) (test 6.49 K/ L 1.78-5.38 lqtk=483) LYMPHOCYTES ABSOLUTE COUNT (BEAKER) (test 1.11 K/ L 1.32-3.57 ghgp=475) MONOCYTES ABSOLUTE COUNT (BEAKER) (test 1.08 K/ L 0.30-0.82 reiz=022) EOSINOPHILS ABSOLUTE COUNT (BEAKER) (test 0.19 K/ L 0.04-0.54 ybkb=969) BASOPHILS ABSOLUTE COUNT (BEAKER) (test 0.02 K/ L 0.01-0.08 ruaa=339) IMMATURE GRANULOCYTES-RELATIVE PERCENT (BEAKER) 0 % 0-1 (test pnzd=1919) POCT-GLUCOSE [id number] 06:39:00 Test Item Value Reference Range Comments POC-GLUCOSE METER (BEAKER) 239 mg/dL 70-110 TESTED AT [address] (test akdp=3677) [facility] [address] POCT-GLUCOSE [id number] 23:40:00 Test Item Value Reference Range Comments POC-GLUCOSE METER (BEAKER) 234 mg/dL 70-110 TESTED AT [address] (test jghk=7271) [place] [id number] POCT-GLUCOSE [id number] 17:26:00 Test Item Value Reference Range Comments POC-GLUCOSE METER (BEAKER) 257 mg/dL 70-110 TESTED AT [address] (test zxro=0609) [facility] [address] BASIC METABOLIC [id number] 16:15:00 Test Item Value Reference Range Comments SODIUM (BEAKER) (test 140 meq/L 136-145 irop=195) POTASSIUM (BEAKER) (test 4.6 meq/L 3.5-5.1 pumq=243) CHLORIDE (BEAKER) (test 111 meq/L 98-107 swwc=265) CO2 (BEAKER) (test 25 meq/L 22-29 yvif=204) BLOOD UREA NITROGEN 24 mg/dL 7-21 (BEAKER) (test domx=904) CREATININE (BEAKER) (test 1.21 mg/dL 0.57-1.25 oomx=388) GLUCOSE RANDOM (BEAKER) 195 mg/dL 70-105 (test bcew=198) CALCIUM (BEAKER) (test 8.2 mg/dL 8.4-10.2 tsqn=783) EGFR (BEAKER) (test 71 mL/min/1.73 sq m ESTIMATED GFR IS NOT eymy=3687) ACCURATE CREATININE CLEARANCE IN PREDICTING GLOMERULAR FILTRATION RATE. ESTIMATED GFR IS NOT APPLICABLE FOR DIALYSIS PATIENTS. RETICULOCYTE [id number] 15:59:00 Test Item Value Reference Range Comments RETICULOCYTE COUNT PCT (BEAKER) (test vlau=248) 2.3 % 0.5-1.8 HEPATIC FUNCTION [id number] 13:31:00 Test Item Value Reference Range Comments TOTAL PROTEIN (BEAKER) (test 4.8 gm/dL 6.0-8.3 Specimen slightly hemolyzed arcc=169) ALBUMIN (BEAKER) (test 1.2 g/dL 3.5-5.0 Specimen slightly hemolyzed fnuc=4354) BILIRUBIN TOTAL (BEAKER) (test 0.2 mg/dL 0.2-1.2 Specimen slightly hemolyzed brry=953) BILIRUBIN DIRECT (BEAKER) (test 0.1 mg/dL 0.1-0.5 Specimen slightly hemolyzed qxlt=925) ALKALINE PHOSPHATASE (BEAKER) 74 U/L 40-150 (test zsfx=839) AST (SGOT) (BEAKER) (test 38 U/L 5-34 Specimen slightly hemolyzed bgwy=986) ALT (SGPT) (BEAKER) (test 19 U/L 6-55 Specimen slightly hemolyzed vbmq=945) LACTATE DEHYDROGENASE (LDH)[id number] 13:30:00 Test Item Value Reference Range Comments LACTATE DEHYDROGENASE (BEAKER) 338 U/L 125-220 Specimen slightly hemolyzed (test npcg=444) CBC W/PLT COUNT & AUTO [id number] 13:17:00 Test Item Value Reference Range Comments WHITE BLOOD CELL COUNT (BEAKER) (test jlsj=142) 11.2 K/ L 3.5-10.5 RED BLOOD CELL COUNT (BEAKER) (test kaka=607) 3.14 M/ L 4.63-6.08 HEMOGLOBIN (BEAKER) (test rgwu=051) 8.6 GM/DL 13.7-17.5 HEMATOCRIT (BEAKER) (test eyyh=331) 28.2 % 40.1-51.0 MEAN CORPUSCULAR VOLUME (BEAKER) (test lbiq=451) 89.8 fL 79.0-92.2 MEAN CORPUSCULAR HEMOGLOBIN (BEAKER) (test 27.4 pg 25.7-32.2 chwc=830) MEAN CORPUSCULAR HEMOGLOBIN CONC (BEAKER) (test 30.5 GM/DL 32.3-36.5 trtl=184) RED CELL DISTRIBUTION WIDTH (BEAKER) (test 17.2 % 11.6-14.4 mmgb=625) PLATELET COUNT (BEAKER) (test mezv=235) 196 K/CU MM 150-450 MEAN PLATELET VOLUME (BEAKER) (test ajkl=259) 10.2 fL 9.4-12.4 NUCLEATED RED BLOOD CELLS (BEAKER) (test 0 /100 WBC 0-0 khfq=126) NEUTROPHILS RELATIVE PERCENT (BEAKER) (test 79 % ergg=449) LYMPHOCYTES RELATIVE PERCENT (BEAKER) (test 9 % dpsq=749) MONOCYTES RELATIVE PERCENT (BEAKER) (test 11 % ltej=016) EOSINOPHILS RELATIVE PERCENT (BEAKER) (test 1 % tknv=236) BASOPHILS RELATIVE PERCENT (BEAKER) (test 0 % vesw=764) NEUTROPHILS ABSOLUTE COUNT (BEAKER) (test 8.88 K/ L 1.78-5.38 wwqh=267) LYMPHOCYTES ABSOLUTE COUNT (BEAKER) (test 0.96 K/ L 1.32-3.57 dpsb=731) MONOCYTES ABSOLUTE COUNT (BEAKER) (test 1.26 K/ L 0.30-0.82 mulh=494) EOSINOPHILS ABSOLUTE COUNT (BEAKER) (test 0.06 K/ L 0.04-0.54 kfro=291) BASOPHILS ABSOLUTE COUNT (BEAKER) (test 0.02 K/ L 0.01-0.08 xiev=840) IMMATURE GRANULOCYTES-RELATIVE PERCENT (BEAKER) 0 % 0-1 (test kodc=5135) POCT-GLUCOSE [id number] 12:30:00 Test Item Value Reference Range Comments POC-GLUCOSE METER (BEAKER) 193 mg/dL 70-[address] [facility] [address] [facility] (test sbov=6539) [facility] [address] VANCOMYCIN LEVEL, [id number] 09:00:00 Test Item Value Reference Range Comments VANCOMYCIN RANDOM (BEAKER) (test lovy=736) 22.6 ug/mL Reference Range: No [id number] 07:29:00 Test Item Value Reference Range Comments MAGNESIUM (BEAKER) (test dczm=078) 1.9 mg/dL 1.6-2.6 BASIC METABOLIC [id number] 07:29:00 Test Item Value Reference Range Comments SODIUM (BEAKER) (test 141 meq/L 136-145 bjby=673) POTASSIUM (BEAKER) (test 3.7 meq/L 3.5-5.1 jplr=193) CHLORIDE (BEAKER) (test 113 meq/L 98-107 cmmu=371) CO2 (BEAKER) (test 23 meq/L 22-29 rmav=712) BLOOD UREA NITROGEN 23 mg/dL 7-21 (BEAKER) (test ueaq=705) CREATININE (BEAKER) (test 1.11 mg/dL 0.57-1.25 zvzf=806) GLUCOSE RANDOM (BEAKER) 100 mg/dL 70-105 (test pnwc=527) CALCIUM (BEAKER) (test 8.2 mg/dL 8.4-10.2 ygtx=089) EGFR (BEAKER) (test 78 mL/min/1.73 sq m ESTIMATED GFR IS NOT qyxr=4927) ACCURATE CREATININE CLEARANCE IN PREDICTING GLOMERULAR FILTRATION RATE. ESTIMATED GFR IS NOT APPLICABLE FOR DIALYSIS PATIENTS. CBC W/PLT COUNT & AUTO [id number] 07:00:00 Test Item Value Reference Range Comments WHITE BLOOD CELL COUNT (BEAKER) (test hwzf=927) 11.9 K/ L 3.5-10.5 RED BLOOD CELL COUNT (BEAKER) (test mxqg=875) 2.36 M/ L 4.63-6.08 HEMOGLOBIN (BEAKER) (test rbee=117) 6.6 GM/DL 13.7-17.5 HEMATOCRIT (BEAKER) (test iegm=755) 21.2 % 40.1-51.0 MEAN CORPUSCULAR VOLUME (BEAKER) (test yahm=037) 89.8 fL 79.0-92.2 MEAN CORPUSCULAR HEMOGLOBIN (BEAKER) (test 28.0 pg 25.7-32.2 urel=184) MEAN CORPUSCULAR HEMOGLOBIN CONC (BEAKER) (test 31.1 GM/DL 32.3-36.5 bgxz=292) RED CELL DISTRIBUTION WIDTH (BEAKER) (test 18.6 % 11.6-14.4 pcpj=241) PLATELET COUNT (BEAKER) (test yeqn=953) 210 K/CU MM 150-450 MEAN PLATELET VOLUME (BEAKER) (test rdxk=795) 10.7 fL 9.4-12.4 NUCLEATED RED BLOOD CELLS (BEAKER) (test 0 /100 WBC 0-0 ferh=932) NEUTROPHILS RELATIVE PERCENT (BEAKER) (test 77 % rhaa=824) LYMPHOCYTES RELATIVE PERCENT (BEAKER) (test 10 % apla=393) MONOCYTES RELATIVE PERCENT (BEAKER) (test 12 % uiom=819) EOSINOPHILS RELATIVE PERCENT (BEAKER) (test 0 % updr=696) BASOPHILS RELATIVE PERCENT (BEAKER) (test 0 % rtku=339) NEUTROPHILS ABSOLUTE COUNT (BEAKER) (test 9.19 K/ L 1.78-5.38 stcf=966) LYMPHOCYTES ABSOLUTE COUNT (BEAKER) (test 1.21 K/ L 1.32-3.57 zyxc=704) MONOCYTES ABSOLUTE COUNT (BEAKER) (test 1.38 K/ L 0.30-0.82 gtoe=037) EOSINOPHILS ABSOLUTE COUNT (BEAKER) (test 0.03 K/ L 0.04-0.54 fniv=627) BASOPHILS ABSOLUTE COUNT (BEAKER) (test 0.04 K/ L 0.01-0.08 mmyv=932) IMMATURE GRANULOCYTES-RELATIVE PERCENT (BEAKER) 0 % 0-1 (test eect=2600) POCT-GLUCOSE [id number] 06:47:00 Test Item Value Reference Range Comments POC-GLUCOSE METER (BEAKER) 128 mg/dL 70-110 TESTED AT [address] (test uftp=8794) [place] [id number] POCT-GLUCOSE [id number] 01:25:00 Test Item Value Reference Range Comments POC-GLUCOSE METER (BEAKER) 81 mg/dL 70-110 TESTED AT [address] (test zzos=3182) [place] [address] VANCOMYCIN LEVEL, [id number] 21:59:00 Test Item Value Reference Range Comments VANCOMYCIN TROUGH (BEAKER) (test qnax=970) 26.3 ug/mL 10.0-20.0 WAIT FOR LEVEL TO RETURN BEFORE GIVING DOSE. If vancomycin trough level > 20 , HOLD dose and contact MD and pharmacist.POCT-GLUCOSE [id number] 17:48:00 Test Item Value Reference Range Comments POC-GLUCOSE METER (BEAKER) 96 mg/dL 70-110 TESTED AT [address] (test bxii=1105) [place] [id number] POCT-GLUCOSE [id number] 15:40:00 Test Item Value Reference Range Comments POC-GLUCOSE METER (BEAKER) 106 mg/dL 70-[address] [facility] [address] [facility] (test jjzi=3225) [facility] [address] CBC W/PLT COUNT & AUTO [id number] 14:21:00 Test Item Value Reference Range Comments WHITE BLOOD CELL COUNT (BEAKER) (test snbz=085) 12.6 K/ L 3.5-10.5 RED BLOOD CELL COUNT (BEAKER) (test ydqx=286) 2.64 M/ L 4.63-6.08 HEMOGLOBIN (BEAKER) (test vjey=902) 7.3 GM/DL 13.7-17.5 HEMATOCRIT (BEAKER) (test vcyd=515) 23.8 % 40.1-51.0 MEAN CORPUSCULAR VOLUME (BEAKER) (test xihe=340) 90.2 fL 79.0-92.2 MEAN CORPUSCULAR HEMOGLOBIN (BEAKER) (test 27.7 pg 25.7-32.2 naya=811) MEAN CORPUSCULAR HEMOGLOBIN CONC (BEAKER) (test 30.7 GM/DL 32.3-36.5 ltnh=096) RED CELL DISTRIBUTION WIDTH (BEAKER) (test 18.2 % 11.6-14.4 upuy=173) PLATELET COUNT (BEAKER) (test sncb=354) 225 K/CU MM 150-450 MEAN PLATELET VOLUME (BEAKER) (test ewfm=470) 10.6 fL 9.4-12.4 NUCLEATED RED BLOOD CELLS (BEAKER) (test 0 /100 WBC 0-0 ubjy=170) (CELLAVISION MANUAL DIFF)[id number] 14:21:00 Test Item Value Reference Range Comments NEUTROPHILS - REL (CELLAVISION)(BEAKER) (test 89 % yupc=9686) LYMPHOCYTES - REL (CELLAVISION)(BEAKER) (test 5 % atht=7899) MONOCYTES - REL (CELLAVISION)(BEAKER) (test 5 % cfxh=7902) ATYPICAL LYMPHOCYTES - REL (CELLAVISION)(BEAKER) 1 % 0-0 (test eibh=1793) NEUTROPHILS - ABS (CELLAVISION)(BEAKER) (test 11.21 K/ul 1.78-5.38 rtuq=3140) LYMPHOCYTES - ABS (CELLAVISION)(BEAKER) (test 0.63 K/ul 1.32-3.57 bqys=1475) MONOCYTES - ABS (CELLAVISION)(BEAKER) (test 0.63 K/uL 0.30-0.82 kloa=9202) ATYPICAL LYMPHOCYTES - ABS (CELLAVISION)(BEAKER) 0.13 K/uL 0.00-0.00 (test fqto=9660) TOTAL COUNTED (BEAKER) (test gvbd=4039) 100 PLT MORPHOLOGY (BEAKER) (test vwsy=746) Normal SMUDGE CELLS (BEAKER) (test fffp=3373) Present ANISOCYTOSIS (BEAKER) (test aabk=217) 1+ few POIKILOCYTES (BEAKER) (test brsv=777) 2+ moderate CESILIA CELLS (BEAKER) (test abpq=474) 1+ few PLATELET CONCENTRATION (CELLAVISION)(BEAKER) Adequate (test kcoq=8136) Received comment: User comments: Slide comments:POCT-GLUCOSE [id number] 12: 02:00 Test Item Value Reference Range Comments POC-GLUCOSE METER (BEAKER) 84 mg/dL 70-[address] [facility] [address] [facility] (test txfp=5651) [facility] [address] [id number] 07:12:00 Test Item Value Reference Range Comments MAGNESIUM (BEAKER) (test iuyi=180) 1.6 mg/dL 1.6-2.6 BASIC METABOLIC [id number] 07:12:00 Test Item Value Reference Range Comments SODIUM (BEAKER) (test 140 meq/L 136-145 lwru=247) POTASSIUM (BEAKER) (test 3.7 meq/L 3.5-5.1 gnmn=059) CHLORIDE (BEAKER) (test 110 meq/L 98-107 xwqo=382) CO2 (BEAKER) (test 25 meq/L 22-29 rqol=573) BLOOD UREA NITROGEN 27 mg/dL 7-21 (BEAKER) (test zeqs=754) CREATININE (BEAKER) (test 1.07 mg/dL 0.57-1.25 azvs=985) GLUCOSE RANDOM (BEAKER) 67 mg/dL 70-105 (test ipfe=872) CALCIUM (BEAKER) (test 8.5 mg/dL 8.4-10.2 upgd=597) EGFR (BEAKER) (test 81 mL/min/1.73 sq m ESTIMATED GFR IS NOT rfyw=6321) ACCURATE CREATININE CLEARANCE IN PREDICTING GLOMERULAR FILTRATION RATE. ESTIMATED GFR IS NOT APPLICABLE FOR DIALYSIS PATIENTS. POCT-GLUCOSE [id number] 06:24:00 Test Item Value Reference Range Comments POC-GLUCOSE METER (BEAKER) 71 mg/dL 70-110 TESTED AT [address] (test qbhq=9846) [place] [address] POCT-GLUCOSE [id number] 00:20:00 Test Item Value Reference Range Comments POC-GLUCOSE METER (BEAKER) 106 mg/dL 70-110 TESTED AT [address] (test rbco=2186) [place] [address] POCT-GLUCOSE [id number] 18:43:00 Test Item Value Reference Range Comments POC-GLUCOSE METER (BEAKER) 104 mg/dL 70-110 TESTED AT [address] (test ouop=7847) [place] [id number] POCT-GLUCOSE [id number] 12:56:00 Test Item Value Reference Range Comments POC-GLUCOSE METER (BEAKER) 113 mg/dL 70-110 TESTED AT [address] (test uvvw=9400) [place] [address] CBC W/PLT COUNT & AUTO [id number] 11:01:00 Test Item Value Reference Range Comments WHITE BLOOD CELL COUNT (BEAKER) (test yuoy=533) 12.9 K/ L 3.5-10.5 RED BLOOD CELL COUNT (BEAKER) (test eqvi=913) 2.66 M/ L 4.63-6.08 HEMOGLOBIN (BEAKER) (test lqdx=588) 7.5 GM/DL 13.7-17.5 HEMATOCRIT (BEAKER) (test xlom=687) 24.1 % 40.1-51.0 MEAN CORPUSCULAR VOLUME (BEAKER) (test wnmq=477) 90.6 fL 79.0-92.2 MEAN CORPUSCULAR HEMOGLOBIN (BEAKER) (test 28.2 pg 25.7-32.2 qgzf=614) MEAN CORPUSCULAR HEMOGLOBIN CONC (BEAKER) (test 31.1 GM/DL 32.3-36.5 mnvc=313) RED CELL DISTRIBUTION WIDTH (BEAKER) (test 18.4 % 11.6-14.4 uuau=394) PLATELET COUNT (BEAKER) (test pwwq=492) 208 K/CU MM 150-450 MEAN PLATELET VOLUME (BEAKER) (test mzzd=810) 10.8 fL 9.4-12.4 NUCLEATED RED BLOOD CELLS (BEAKER) (test 0 /100 WBC 0-0 iwex=362) (CELLAVISION MANUAL DIFF)[id number] 11:01:00 Test Item Value Reference Range Comments NEUTROPHILS - REL (CELLAVISION)(BEAKER) (test 86 % ddir=2913) LYMPHOCYTES - REL (CELLAVISION)(BEAKER) (test 1 % qccq=0833) MONOCYTES - REL (CELLAVISION)(BEAKER) (test 9 % fvat=5839) BANDS - REL (CELLAVISION)(BEAKER) (test 3 % 0-10 lmgm=2192) ATYPICAL LYMPHOCYTES - REL (CELLAVISION)(BEAKER) 1 % 0-0 (test rhkg=5629) NEUTROPHILS - ABS (CELLAVISION)(BEAKER) (test 11.09 K/ul 1.78-5.38 ojmx=7342) LYMPHOCYTES - ABS (CELLAVISION)(BEAKER) (test 0.13 K/ul 1.32-3.57 oaxr=4403) MONOCYTES - ABS (CELLAVISION)(BEAKER) (test 1.16 K/uL 0.30-0.82 aeqx=2147) BANDS - ABS (CELLAVISION)(BEAKER) (test 0.39 K/uL 0.00-0.80 hvei=4566) ATYPICAL LYMPHOCYTES - ABS (CELLAVISION)(BEAKER) 0.13 K/uL 0.00-0.00 (test agba=0151) TOTAL COUNTED (BEAKER) (test riwj=0994) 100 WBC MORPHOLOGY (BEAKER) (test vxkj=543) Normal PLT MORPHOLOGY (BEAKER) (test iypb=252) Normal POLYCHROMATOPHILLIC RBCS(BEAKER) (test qhyc=863) 1+ few HYPOCHROMIA (BEAKER) (test urne=634) 1+ few ARTIFACT (CELLAVISION)(BEAKER) (test yxur=7373) Present PLATELET CONCENTRATION (CELLAVISION)(BEAKER) Adequate (test dads=4254) Received comment: User comments: Slide comments:POCT-GLUCOSE [id number] 07: 57:00 Test Item Value Reference Range Comments POC-GLUCOSE METER (BEAKER) 96 mg/dL 70-[address] [facility] [address] [facility] [address] [facility] (test xzui=3184) [place] [address] [id number] 07:34:00 Test Item Value Reference Range Comments MAGNESIUM (BEAKER) (test szuv=740) 1.8 mg/dL 1.6-2.6 BASIC METABOLIC [id number] 07:34:00 Test Item Value Reference Range Comments SODIUM (BEAKER) (test 138 meq/L 136-145 ckvi=635) POTASSIUM (BEAKER) (test 4.0 meq/L 3.5-5.1 asxv=293) CHLORIDE (BEAKER) (test 108 meq/L 98-107 ihwp=902) CO2 (BEAKER) (test 26 meq/L 22-29 lvok=231) BLOOD UREA NITROGEN 33 mg/dL 7-21 (BEAKER) (test kfwz=171) CREATININE (BEAKER) (test 1.10 mg/dL 0.57-1.25 eswm=300) GLUCOSE RANDOM (BEAKER) 79 mg/dL 70-105 (test vdzx=815) CALCIUM (BEAKER) (test 8.4 mg/dL 8.4-10.2 qyts=760) EGFR (BEAKER) (test 79 mL/min/1.73 sq m ESTIMATED GFR IS NOT iovk=5088) ACCURATE CREATININE CLEARANCE IN PREDICTING GLOMERULAR FILTRATION RATE. ESTIMATED GFR IS NOT APPLICABLE FOR DIALYSIS PATIENTS.
[2018-12-24] MEDS ORDERED: NA CHLORIDE 0.9% 0 ML ONE (20:30)
--- NOTE | 2018-12-24 21:16 | EDPHYS ---
Physician Documentation [facility] Name: Leonardo Kumari Age: 78 yrs Sex: Male : 1940 Arrival Date: 12/24/2018 Time: 19:27 Bed 27 Private MD: ED Physician Surinder Salcedo HPI: 12/24 20:08 This 78 yrs old Black Male presents to ER via EMS with complaints of previous PEG tube madisyn site bleeding. 20:08 The patient presents with abdominal pain in the upper abdomen. Onset: The madisyn symptoms/episode began/occurred just prior to arrival. The symptoms do not radiate. Associated signs and symptoms: none. The symptoms are described as constant. Modifying factors: The symptoms are alleviated by nothing. Severity of pain: At its worst the pain was. The patient has not experienced similar symptoms in the past. Historical: - Allergies: 19:30 Ibuprofen; rr5 19:30 Stadol; rr5 19:30 Versed; rr5 - Home Meds: 19:30 acetaminophen-codeine 300-30 mg Oral tab 1 tab every 6 hours for Pain [Active]; rr5 amlodipine 5 mg tab 1 tab once daily [Active]; carvedilol 25 mg Oral tab 1 tab nightly [Active]; atorvastatin 80 mg Oral tab 1 tab nightly [Active]; aspirin 81 mg Oral TbEC 1 tab once daily [Active]; clopidogrel 75 mg Oral tab 1 tab once daily [Active]; cyclobenzaprine 10 mg Oral tab 1 tab every 8 hours for Muscle Spasm [Active]; Pepcid 40 mg Oral tab nightly [Active]; Novolog 100 unit/mL Sub-Q soln twice a day [Active]; paroxetine HCl 10 mg Oral tab 1 tab once daily [Active]; multivitamin with minerals Oral 5 mL daily [Active]; Levemir FlexTouch 100 unit/mL (3 mL) subcutaneous inpn 10 unit daily [Active]; tramadol 50 mg Oral tab 1 tab every 6 hours for Pain [Active]; hydralazine 25 mg Oral tab every 8 hours for Hypertension [Active]; docusate sodium 50 mg/5 mL Oral liqd 10 mL once daily [Active]; - PMHx: 19:30 Allergic rhinitis; Aphasia; constipation; Contracture; Dementia; Depression; Diabetes - rr5 NIDDM; DYSPHAGIA; GERD; GI Bleed; Hemiplegia/hemiparesis; High Cholesterol; Hypertension; hypotension; MRSA; Paraplegia; UTI; - PSHx: 19:30 PEG tube insertion; rr5 - Immunization history:: Adult Immunizations unknown. - Social history:: Smoking status: unknown. - Ebola Screening: : Unable to complete screening because Aphasic. - Family history:: not pertinent. ROS: 20:08 Constitutional: Negative for fever, chills, and weight loss, Eyes: Negative for injury, madisyn pain, redness, and discharge, ENT: Negative for injury, pain, and discharge, Neck: Negative for injury, pain, and swelling, Cardiovascular: Negative for chest pain, palpitations, and edema, Respiratory: Negative for shortness of breath, cough, wheezing, and pleuritic chest pain, Back: Negative for injury and pain, : Negative for injury, bleeding, discharge, and swelling, MS/Extremity: Negative for injury and deformity, Skin: Negative for injury, rash, and discoloration, Neuro: Negative for headache, weakness, numbness, tingling, and seizure, Psych: Negative for depression, anxiety, suicide ideation, homicidal ideation, and hallucinations, Allergy/Immunology: Negative for hives, rash, and allergies, Endocrine: Negative for neck swelling, polydipsia, polyuria, polyphagia, and marked weight changes, Hematologic/Lymphatic: Negative for swollen nodes, abnormal bleeding, and unusual bruising. 20:08 Abdomen/GI: Positive for abdominal pain, of the left upper quadrant. Exam: 20:08 Constitutional: This is a well developed, well nourished patient who is awake, alert, madisyn and in no acute distress. Head/Face: Normocephalic, atraumatic. Eyes: Pupils equal round and reactive to light, extra-ocular motions intact. Lids and lashes normal. Conjunctiva and sclera are non-icteric and not injected. Cornea within normal limits. Periorbital areas with no swelling, redness, or edema. ENT: Nares patent. No nasal discharge, no septal abnormalities noted. Tympanic membranes are normal and external auditory canals are clear. Oropharynx with no redness, swelling, or masses, exudates, or evidence of obstruction, uvula midline. Mucous membranes moist. Neck: Trachea midline, no thyromegaly or masses palpated, and no cervical lymphadenopathy. Supple, full range of motion without nuchal rigidity, or vertebral point tenderness. No Meningismus. Chest/axilla: Normal chest wall appearance and motion. Nontender with no deformity. No lesions are appreciated. Cardiovascular: Regular rate and rhythm with a normal S1 and S2. No gallops, murmurs, or rubs. Normal PMI, no JVD. No pulse deficits. Respiratory: Lungs have equal breath sounds bilaterally, clear to auscultation and percussion. No rales, rhonchi or wheezes noted. No increased work of breathing, no retractions or nasal flaring. Abdomen/GI: Soft, non-tender, with normal bowel sounds. No distension or tympany. No guarding or rebound. No evidence of tenderness throughout. Back: No spinal tenderness. No costovertebral tenderness. Full range of motion. Skin: Warm, dry with normal turgor. Normal color with no rashes, no lesions, and no evidence of cellulitis. Neuro: Awake and alert, GCS 15, oriented to person, place, time, and situation. Cranial nerves II-XII grossly intact. Motor strength 5/5 in all extremities. Sensory grossly intact. Cerebellar exam normal. Normal gait. Psych: Awake, alert, with orientation to person, place and time. Behavior, mood, and affect are within normal limits. 20:08 Abdomen/GI: Inspection: abdomen appears normal, Bowel sounds: normal, Palpation: abdomen is soft and non-tender, Liver: no appreciated palpable abnormalities, Hernia: not appreciated. Vital Signs: 19:30 BP 153 / 76; Pulse 104; Resp 20; Temp 98.4; Pulse Ox 97% on R/A; Weight 85 kg; rr5 20:30 BP 161 / 69; Pulse 105; Resp 19; Temp 98.3; Pulse Ox 98% ; rr5 21:30 BP 151 / 78; Pulse 100; Resp 19; Temp 98.4; Pulse Ox 99% ; rr5 22:30 BP 149 / 75; Pulse 98; Resp 18; Temp 98.3; Pulse Ox 98% on R/A; rr5 MDM: 19:28 Patient medically screened. [facility] 20:08 Data reviewed: vital signs, nurses notes. [facility] 12/24 20:07 Order name: Wound Care: surgicel to area; Complete Time: 21:36 [facility] 12/24 20:42 Order name: Wound dressing; Complete Time: 21:36 madisyn Administered Medications: 21:36 Not Given (Physician Discretion): NS 0.9% 500 ml IV at bolus once rr5 Disposition: 12/24/18 21:15 Discharged to Home. Impression: Gastrostomy complications - bleeding, resolved. - Condition is Stable. - Discharge Instructions: PEG Tube Home Guide, [id number], PEG Tube Home Guide. - Medication Reconciliation Form, Thank You Letter, Antibiotic Education, Prescription Opioid Use form. - Follow up: Private Physician; When: 2 - 3 days; Reason: Recheck today's complaints, Continuance of care, Re-evaluation by your physician. - Problem is new. - Symptoms have improved. Signatures: Dispatcher [employer] EDSurinder Fink MD MD cha Roque, Raymond RN RN rr5 Corrections: (The following items were deleted from the chart) 22:37 21:15 12/24/2018 21:15 Discharged to Home. Impression: Gastrostomy complications - rr5 bleeding, resolved. Condition is Stable. Discharge Instructions: PEG Tube Home Guide, [id number], PEG Tube Home Guide. Forms are Medication Reconciliation Form, Thank You Letter, Antibiotic Education, Prescription Opioid Use. Follow up: Private Physician; When: 2 - 3 days; Reason: Recheck today's complaints, Continuance of care, Re-evaluation by your physician. Problem is new. Symptoms have improved. madisyn
--- NOTE | 2018-12-24 21:16 | ER ---
Nurse's Notes [facility] Name: Leonardo Kumari Age: 78 yrs Sex: Male : 1940 Arrival Date: 12/24/2018 Time: 19:27 Bed 27 Private MD: Diagnosis: Gastrostomy complications-bleeding, resolved Presentation: 12/24 19:30 Presenting complaint: EMS states: called us from [facility]. with a complaint of rr5 previous PEG tube site bleeding. Transition of care: patient was received from another setting of care (long-term care facility), [facility]. Onset of symptoms was December 24, 2018. Risk Assessment: Do you want to hurt yourself or someone else? Patient reports no desire to harm self or others. Initial Sepsis Screen: Does the patient meet any 2 criteria? No. Patient's initial sepsis screen is negative. Does the patient have a suspected source of infection? No. Patient's initial sepsis screen is negative. Note as per EMS patient is 97% on room air, AO x3 BP 138/ 68 mmHg. Care prior to arrival: None. 19:30 Acuity: [place] 3 rr5 19:30 Method Of Arrival: EMS: [facility] rr5 Historical: - Allergies: 19:30 Ibuprofen; rr5 19:30 Stadol; rr5 19:30 Versed; rr5 - Home Meds: 19:30 acetaminophen-codeine 300-30 mg Oral tab 1 tab every 6 hours for Pain [Active]; rr5 amlodipine 5 mg tab 1 tab once daily [Active]; carvedilol 25 mg Oral tab 1 tab nightly [Active]; atorvastatin 80 mg Oral tab 1 tab nightly [Active]; aspirin 81 mg Oral TbEC 1 tab once daily [Active]; clopidogrel 75 mg Oral tab 1 tab once daily [Active]; cyclobenzaprine 10 mg Oral tab 1 tab every 8 hours for Muscle Spasm [Active]; Pepcid 40 mg Oral tab nightly [Active]; Novolog 100 unit/mL Sub-Q soln twice a day [Active]; paroxetine HCl 10 mg Oral tab 1 tab once daily [Active]; multivitamin with minerals Oral 5 mL daily [Active]; Levemir FlexTouch 100 unit/mL (3 mL) subcutaneous inpn 10 unit daily [Active]; tramadol 50 mg Oral tab 1 tab every 6 hours for Pain [Active]; hydralazine 25 mg Oral tab every 8 hours for Hypertension [Active]; docusate sodium 50 mg/5 mL Oral liqd 10 mL once daily [Active]; - PMHx: 19:30 Allergic rhinitis; Aphasia; constipation; Contracture; Dementia; Depression; Diabetes - rr5 NIDDM; DYSPHAGIA; GERD; GI Bleed; Hemiplegia/hemiparesis; High Cholesterol; Hypertension; hypotension; MRSA; Paraplegia; UTI; - PSHx: 19:30 PEG tube insertion; rr5 - Immunization history:: Adult Immunizations unknown. - Social history:: Smoking status: unknown. - Ebola Screening: : Unable to complete screening because Aphasic. - Family history:: not pertinent. Screenin:35 Abuse screen: Denies threats or abuse. Denies injuries from another. Nutritional rr5 screening: No deficits noted. Tuberculosis screening: No symptoms or risk factors identified. Fall Risk Secondary diagnosis (15 points) impaired mobility, Ambulatory Aid- None/Bed Rest/Nurse Assist (0 pts). Gait- Impaired (20 pts.). Total Hsieh Fall Scale indicates High Risk Score (45 or more points). Fall prevention measures have been instituted. Side Rails Up X 2 Placed Close to Nursing Station Frequent Obs/Assessments Occuring As available patient and family educated on Fall Prevention Program and Strategies. Assessment: 19:30 General: Appears in no apparent distress. uncomfortable, Behavior is calm, cooperative. rr5 Pain: Unable to use pain scale. Patient appears to be moaning. Neuro: Level of Consciousness is awake, Oriented to person. 19:30 Cardiovascular: Capillary refill < 3 seconds Patient's skin is warm and dry. rr5 Respiratory: Airway is patent Respiratory effort is even, unlabored, Respiratory pattern is regular, symmetrical. GI: Abdomen is flat, PEG tube in place, clamped. Site clean. previous PEG tube opening at left upper quadrant area, small bleeding noted. redness around the area. : No signs and/or symptoms were reported regarding the genitourinary system. EENT: No signs and/or symptoms were reported regarding the EENT system. Derm: Skin is intact, Skin temperature is warm. Musculoskeletal: contracture extremities. decorticated position. 20:45 Reassessment: Laboratory staff came and tried to extract blood-unsuccessful. ED rr5 provider informed. 21:00 Reassessment: Patient appears in no apparent distress at this time. wound dressing dry rr5 and intact. 21:05 Reassessment: ED provider tried to insert at left jugular vein, missed attempt. rr5 21:30 Reassessment: Patient appears in no apparent distress at this time. patient is rr5 discharge. awaiting for EMS transport going to [facility]. 22:35 Reassessment: Patient appears in no apparent distress at this time. No changes from rr5 previously documented assessment. Endorsed to EMS ovid. awake conscious, no complaints made. wound dressing dry and intact. vitally stable. Vital Signs: 19:30 BP 153 / 76; Pulse 104; Resp 20; Temp 98.4; Pulse Ox 97% on R/A; Weight 85 kg; rr5 20:30 BP 161 / 69; Pulse 105; Resp 19; Temp 98.3; Pulse Ox 98% ; rr5 21:30 BP 151 / 78; Pulse 100; Resp 19; Temp 98.4; Pulse Ox 99% ; rr5 22:30 BP 149 / 75; Pulse 98; Resp 18; Temp 98.3; Pulse Ox 98% on R/A; rr5 ED Course: 19:27 Patient arrived in ED. ds1 19:28 Surinder Salcedo MD is Attending Physician. madisyn 19:30 Davy Méndez, VIVIEN is Primary Nurse. rr5 19:30 Arm band placed on. rr5 19:34 Triage completed. rr5 19:35 Patient has correct armband on for positive identification. Placed in gown. Bed in low rr5 position. Call light in reach. Side rails up X2. Pulse ox on. NIBP on. 20:10 Wound care: to PEG tube opening. located on abdomen was cleaned with Betadine, dressed rr5 with Neosporin, 4X4s, surgicel , Patient tolerated well. 20:15 Missed attempt(s): 22 gauge in left wrist. by instrumentation technician fabian. Bleeding controlled, band rr5 aid applied, catheter tip intact. 21:10 Missed attempt(s): 20 gauge in left EJ by ED provider. Bleeding controlled, band aid rr5 applied, catheter tip intact. 22:35 No provider procedures requiring assistance completed. Patient did not have IV access rr5 during this emergency room visit. Administered Medications: 21:36 Not Given (Physician Discretion): NS 0.9% 500 ml IV at bolus once rr5 Outcome: 21:15 Discharge ordered by MD. mars 22:35 Discharged to [facility] rr5 22:35 Condition: stable 22:35 Discharge instructions given to EMS, Instructed on discharge instructions, Demonstrated understanding of instructions, follow-up care. 22:37 Patient left the ED. rr5 Signatures: Surinder Salcedo MD MD cha Sanford, Demi ds1 Davy Méndez RN RN rr5 Corrections: (The following items were deleted from the chart) :24 21:13 General: Appears in no apparent distress. uncomfortable, Behavior is calm, rr5 cooperative, rr5 :24 21:13 Pain: Unable to use pain scale. Patient appears to be moaning, rr5 rr5 : 21:13 Neuro: Level of Consciousness is awake, Oriented to rr5 rr5 21:33 19:30 Risk Assessment: Do you want to hurt yourself or someone else? Patient reports no rr5 desire to harm self or others. rr5 21:33 19:30 Method Of Arrival: EMS: [facility] rr5 rr5
[2018-12-24 23:16] VITALS: BP 151/78; TEMP 98.4; O2SAT 99
== END 2018-12-24 22:37 | disposition home or self-care (01) ==
LOC: ER 19:22
DX: K94.21 Gastrostomy hemorrhage (principal); I10 Essential (primary) hypertension; E11.9 Type 2 diabetes mellitus without complications; E78.00 Pure hypercholesterolemia, unspecified; F32.9 Major depressive disorder, single episode, unspecified; Z79.82 Long term (current) use of aspirin; Z79.4 Long term (current) use of insulin; Z88.5 Allergy status to narcotic agent; Z88.6 Allergy status to analgesic agent; Z88.8 Allergy status to other drugs, medicaments and biological substances
CPT/HCPCS: 99284

== ENCOUNTER 2019-01-10 06:59 | Inpatient (IN) | payer OTHER ==
[2019-01-10 07:17] LABS: Absolute Lymphocytes (CBC) 2.4 K/uL (0.7-4.9); Basophils % 0.2 % (0-1.3); Eosinophils % 0.2 % (0-4.4); Hematocrit 17.6 % (39.6-49.0); Lymphocytes % 12.3 % (15.3-44.8); MPV 10.2 fL (7.6-11.3); Monocytes % 3.9 % (3.3-12.3); RBC Red Blood Cell Count 1.79 M/uL (4.33-5.43)
[2019-01-10 07:19] LABS: Protime INR 1.31
--- OUTSIDE RECORDS SUMMARY | 2019-01-10 07:22 | XMS REPORT | Clinical Summary ---
:1940 Author Organization [facility] Address [address] [place] [address] Care Team Providers Name Role Phone Cielo [...] Date Type Specialty Care Team Description 12/14/2018 [facility] Internal Silas Joyner Anemia, unspecified type (Primary Dx); - Encounter Medicine Hood RODRIGUEZ MD Bleeding from gastrostomy tube site (HCC); 12/19/2018 Marino Schmidt, CVA, old, aphasia; MD Physical deconditioning; Skin infection at gastrostomy tube site (HCC) 08/10/2018 [facility] Internal Tirukkovalluri, Anemia, unspecified - Encounter Medicine MD Kiersten type 08/11/2018 Silas Joyner III, MD 07/13/2018 Surgery Gastroenterology Malik Gonsales UPPER ENDOSCOPY MD Juan Manuel 07/13/2018 Anesthesia Event Gastroenterology Mita Banuelos MD 07/11/2018 [facility] Internal GelaMyrna Gastrointestinal hemorrhage associated with gastrojejunal ulcer; - Encounter Medicine MD Ama Abdominal wall cellulitis; 07/15/2018 Jimmy, History of CVA with residual deficit; [place] Severe protein-calorie malnutrition (HCC); MD Daniel Sacral decubitus ulcer, stage III (HCC); Deana Ledezma Blood loss anemia; MD Pippa Gastrointestinal hemorrhage, unspecified gastrointestinal hemorrhage type after 01/09/2018 Social History Tobacco Use Types Packs/Day Years [...] Inhaled Oxygen Concentration 21% 07/14/2018 3:52 PM CUTTING ROOM SUPERVISOR Weight 60.8 kg (134 lb 0.6 oz) 08/10/2018 5:00 PM CUTTING ROOM SUPERVISOR Height - - Body Mass Index - [...] 08/11/2018 12:31 Results for this HEMATOCRIT PM CUTTING ROOM SUPERVISOR procedure are in the results section. POCT-GLUCOSE METER Routine 08/11/2018 11:51 Results for this AM CUTTING ROOM SUPERVISOR procedure are in the results section. POCT-GLUCOSE METER Routine 08/11/2018 6:16 Results for this AM CUTTING ROOM SUPERVISOR procedure are in the results section. CBC W/PLT COUNT & AUTO Routine 08/11/2018 1:57 Results for this DIFFERENTIAL AM CUTTING ROOM SUPERVISOR procedure are in the results section. CBC W/PLT COUNT & AUTO Routine 08/11/2018 1:57 Results for this DIFFERENTIAL AM CUTTING ROOM SUPERVISOR procedure are in the results section. PHOSPHORUS Routine 08/11/2018 1:57 Results for this AM CUTTING ROOM SUPERVISOR procedure are in the results section. MAGNESIUM Routine 08/11/2018 1:57 Results for this AM CUTTING ROOM SUPERVISOR procedure are in the results section. CALCIUM, IONIZED Routine 08/11/2018 1:57 Results for this AM CUTTING ROOM SUPERVISOR procedure are in the results section. HEMOGLOBIN A1C Routine 08/11/2018 1:57 Results for this AM CUTTING ROOM SUPERVISOR procedure are in the results section. BASIC METABOLIC PANEL Routine 08/11/2018 1:57 Results for this (7) AM CUTTING ROOM SUPERVISOR procedure are in the results section. HEMOGLOBIN AND Routine 08/11/2018 1:57 Results for this HEMATOCRIT AM CUTTING ROOM SUPERVISOR procedure are in the results section. POCT-GLUCOSE METER Routine 08/11/2018 1:35 Results for this AM CUTTING ROOM SUPERVISOR procedure are in the results section. POCT-GLUCOSE METER Routine 08/10/2018 10:54 Results for this PM CUTTING ROOM SUPERVISOR procedure are in the results section. CBC W/PLT COUNT & AUTO STAT 08/10/2018 6:20 Results for this DIFFERENTIAL PM CUTTING ROOM SUPERVISOR procedure are in the results section. HEMOGLOBIN AND Routine 08/10/2018 6:20 Results for this HEMATOCRIT PM CUTTING ROOM SUPERVISOR procedure are in the results section. HEMOGLOBIN A1C AP Routine 08/10/2018 6:20 Results for this PM CUTTING ROOM SUPERVISOR procedure are in the results section. PHOSPHORUS STAT 08/10/2018 6:20 Results for this PM CUTTING ROOM SUPERVISOR procedure are in the results section. MAGNESIUM STAT 08/10/2018 6:20 Results for this PM CUTTING ROOM SUPERVISOR procedure are in the results section. COMPREHENSIVE STAT 08/10/2018 6:20 Results for this METABOLIC PANEL PM CUTTING ROOM SUPERVISOR procedure are in the results section. CBC W/PLT COUNT & AUTO STAT 08/10/2018 6:20 Results for this DIFFERENTIAL PM CUTTING ROOM SUPERVISOR procedure are in the results section. POCT-GLUCOSE METER Routine 08/10/2018 4:38 Results for this PM CUTTING ROOM SUPERVISOR procedure are in the results section. RHYTHM STRIP - SCAN 08/02/2018 8:20 AM CUTTING ROOM SUPERVISOR TRANSFUSION SERVICE 07/16/2018 6:01 REPORT - SCAN PM CUTTING ROOM SUPERVISOR PREPARE LEUKO-REDUCED Routine 07/15/2018 11:54 Results for this RBC PM CUTTING ROOM SUPERVISOR procedure are in the results section. TRANSFUSION SERVICE 07/15/2018 6:01 REPORT - SCAN PM CUTTING ROOM SUPERVISOR POCT-GLUCOSE METER Routine 07/15/2018 8:18 Results for this AM CUTTING ROOM SUPERVISOR procedure are in the results section. CBC W/PLT COUNT & AUTO Routine 07/15/2018 7:11 Results for this DIFFERENTIAL AM CUTTING ROOM SUPERVISOR procedure are in the results section. BASIC METABOLIC PANEL Routine 07/15/2018 7:11 Results for this (7) AM CUTTING ROOM SUPERVISOR procedure are in the results section. HAPTOGLOBIN Routine 07/15/2018 7:11 Results for this AM CUTTING ROOM SUPERVISOR procedure are in the results section. CBC W/PLT COUNT & AUTO Routine 07/15/2018 7:11 Results for this DIFFERENTIAL AM CUTTING ROOM SUPERVISOR procedure are in the results section. POCT-GLUCOSE METER Routine 07/15/2018 6:37 Results for this AM CUTTING ROOM SUPERVISOR procedure are in the results section. POCT-GLUCOSE METER Routine 07/14/2018 11:36 Results for this PM CUTTING ROOM SUPERVISOR procedure are in the results section. POCT-GLUCOSE METER Routine 07/14/2018 5:23 Results for this PM CUTTING ROOM SUPERVISOR procedure are in the results section. BASIC METABOLIC PANEL Routine 07/14/2018 3:47 Results for this (7) PM CUTTING ROOM SUPERVISOR procedure are in the results section. PERIPHERAL BLOOD SMEAR AP Routine 07/14/2018 3:47 Results for this - PATHOLOGIST REVIEW PM CUTTING ROOM SUPERVISOR procedure are in the results section. RETICULOCYTE COUNT Routine 07/14/2018 3:47 Results for this PM CUTTING ROOM SUPERVISOR procedure are in the results section. CBC W/PLT COUNT & AUTO Routine 07/14/2018 1:03 Results for this DIFFERENTIAL PM CUTTING ROOM SUPERVISOR procedure are in the results section. HEPATIC FUNCTION PANEL Routine 07/14/2018 1:03 Results for this PM CUTTING ROOM SUPERVISOR procedure are in the results section. CBC W/PLT COUNT & AUTO Routine 07/14/2018 1:03 Results for this DIFFERENTIAL PM CUTTING ROOM SUPERVISOR procedure are in the results section. LACTATE DEHYDROGENASE Routine 07/14/2018 1:03 Results for this (LDH) PM CUTTING ROOM SUPERVISOR procedure are in the results section. TRANSFUSE Routine 07/14/2018 12:32 LEUKO-REDUCED RED PM CUTTING ROOM SUPERVISOR BLOOD CELLS POCT-GLUCOSE METER Routine 07/14/2018 12:01 Results for this PM CUTTING ROOM SUPERVISOR procedure are in the results section. VANCOMYCIN LEVEL, Routine 07/14/2018 8:37 Results for this RANDOM AM CUTTING ROOM SUPERVISOR procedure are in the results section. POCT-GLUCOSE METER Routine 07/14/2018 6:45 Results for this AM CUTTING ROOM SUPERVISOR procedure are in the results section. CBC W/PLT COUNT & AUTO Routine 07/14/2018 6:10 Results for this DIFFERENTIAL AM CUTTING ROOM SUPERVISOR procedure are in the results section. MAGNESIUM Routine 07/14/2018 6:10 Results for this AM CUTTING ROOM SUPERVISOR procedure are in the results section. BASIC METABOLIC PANEL Routine 07/14/2018 6:10 Results for this (7) AM CUTTING ROOM SUPERVISOR procedure are in the results section. CBC W/PLT COUNT & AUTO Routine 07/14/2018 6:10 Results for this DIFFERENTIAL AM CUTTING ROOM SUPERVISOR procedure are in the results section. POCT-GLUCOSE METER Routine 07/14/2018 1:16 Results for this AM CUTTING ROOM SUPERVISOR procedure are in the results section. VANCOMYCIN LEVEL, Timed 07/13/2018 9:11 Results for this TROUGH PM CUTTING ROOM SUPERVISOR procedure are in the results section. TRANSFUSION SERVICE 07/13/2018 6:03 REPORT - SCAN PM CUTTING ROOM SUPERVISOR POCT-GLUCOSE METER Routine 07/13/2018 5:42 Results for this PM CUTTING ROOM SUPERVISOR procedure are in the results section. POCT-GLUCOSE METER Routine 07/13/2018 3:39 Results for this PM CUTTING ROOM SUPERVISOR procedure are in the results section. REPORT OF PROCEDURE - 07/13/2018 3:20 ENDOSCOPY URL PM CUTTING ROOM SUPERVISOR UPPER ENDOSCOPY 07/13/2018 3:00 Melena PM CUTTING ROOM SUPERVISOR POCT-GLUCOSE METER Routine 07/13/2018 11:58 Results for this AM CUTTING ROOM SUPERVISOR procedure are in the results section. (CELLAVISION MANUAL Routine 07/13/2018 5:54 Results for this DIFF) AM CUTTING ROOM SUPERVISOR procedure are in the results section. CBC W/PLT COUNT & AUTO Routine 07/13/2018 5:54 Results for this DIFFERENTIAL AM CUTTING ROOM SUPERVISOR procedure are in the results section. MAGNESIUM Routine 07/13/2018 5:54 Results for this AM CUTTING ROOM SUPERVISOR procedure are in the results section. BASIC METABOLIC PANEL Routine 07/13/2018 5:54 Results for this (7) AM CUTTING ROOM SUPERVISOR procedure are in the results section. CBC W/PLT COUNT & AUTO Routine 07/13/2018 5:54 Results for this DIFFERENTIAL AM CUTTING ROOM SUPERVISOR procedure are in the results section. POCT-GLUCOSE METER Routine 07/13/2018 5:49 Results for this AM CUTTING ROOM SUPERVISOR procedure are in the results section. POCT-GLUCOSE METER Routine 07/13/2018 12:11 Results for this AM CUTTING ROOM SUPERVISOR procedure are in the results section. POCT-GLUCOSE METER Routine 07/12/2018 6:40 Results for this PM CUTTING ROOM SUPERVISOR procedure are in the results section. POCT-GLUCOSE METER Routine 07/12/2018 12:43 Results for this PM CUTTING ROOM SUPERVISOR procedure are in the results section. ECG 12-LEAD Routine 07/12/2018 9:22 Results for this AM CUTTING ROOM SUPERVISOR procedure are in the results section. POCT-GLUCOSE METER Routine 07/12/2018 7:37 Results for this AM CUTTING ROOM SUPERVISOR procedure are in the results section. (CELLAVISION MANUAL Routine 07/12/2018 6:21 Results for this DIFF) AM CUTTING ROOM SUPERVISOR procedure are in the results section. CBC W/PLT COUNT & AUTO Routine 07/12/2018 6:21 Results for this DIFFERENTIAL AM CUTTING ROOM SUPERVISOR procedure are in the results section. TYPE AND SCREEN, Routine 07/12/2018 6:21 Results for this AUTOMATED AM CUTTING ROOM SUPERVISOR procedure are in the results section. MAGNESIUM Routine 07/12/2018 6:21 Results for this AM CUTTING ROOM SUPERVISOR procedure are in the results section. BASIC METABOLIC PANEL Routine 07/12/2018 6:21 Results for this (7) AM CUTTING ROOM SUPERVISOR procedure are in the results section. CBC W/PLT COUNT & AUTO Routine 07/12/2018 6:21 Results for this DIFFERENTIAL AM CUTTING ROOM SUPERVISOR procedure are in the results section. after 01/09/2018 Results POC-Glucose meter (12/19/2018 6:05 AM CDT)Only the most recent of41 resultswithin the time period is included. POC-Glucose Meter 135 (H)Comment: TESTED AT 70 - 110 mg/dL [place] [id number] [facility] [place] [address] Specimen Blood Performing Organization Address City/State/Zipcode Phone Number [address] [phone] CENTER CBC with platelet count + automated diff (12/19/2018 5:15 AM CDT)Only the most recent of13 resultswithin the time period is included. WBC 8.1 3.5 - 10.5 K/L [facility] RBC 3.47 (L) 4.63 - 6.08 M/L [facility] Hemoglobin 9.9 (L) 13.7 - 17.5 GM/DL [facility] Hematocrit 32.1 (L) 40.1 - 51.0 % [facility] MCV 92.5 (H) 79.0 - 92.2 fL [facility] MCH 28.5 25.7 - 32.2 pg [facility] MCHC 30.8 (L) 32.3 - 36.5 GM/DL [facility] RDW 15.9 (H) 11.6 - 14.4 % [facility] Platelets 172 150 - 450 K/CU MM [facility] MPV 10.2 9.4 - 12.4 fL [facility] nRBC 0 0 - 0 /100 WBC [facility] % Neutros 72 % [facility] % Lymphs 14 % [facility] % Monos 10 % [facility] % Eos 4 % [facility] % Baso 0 % [facility] # Neutros 5.78 (H) 1.78 - 5.38 K/L [facility] # Lymphs 1.10 (L) 1.32 - 3.57 K/L [facility] # Monos 0.80 0.30 - 0.82 K/L [facility] # Eos 0.32 0.04 - 0.54 K/L [facility] # Baso 0.03 0.01 - 0.08 K/L [facility] Immature Granulocytes-Relative 0 0 - 1 % [facility] Specimen Blood Performing Organization Address City/State/Zipcode Phone Number [facility] [address] [place] [address] [phone] CENTER Basic Metabolic Panel (12/19/2018 5:15 AM CDT)Only the most recent of10 resultswithin the time period is included. Sodium 138 136 - 145 meq/L [facility] Potassium 4.0Comment: Specimen slightly 3.5 - 5.1 meq/L [facility] hemolyzed [facility] Chloride 110 (H) 98 - 107 meq/L [facility] CO2 24 22 - 29 meq/L [facility] BUN 13 7 - 21 mg/dL [facility] Creatinine 1.13Comment: Specimen 0.57 - 1.25 mg/dL [facility] slightly hemolyzed [facility] Glucose 110 (H) 70 - 105 mg/dL [facility] Calcium 7.5 (L) 8.4 - 10.2 mg/dL [facility] EGFR 76Comment: ESTIMATED GFR IS mL/min/1.73 sq m [facility] NOT ACCURATE CREATININE [facility] CENTER CLEARANCE IN PREDICTING GLOMERULAR FILTRATION RATE. ESTIMATED GFR IS NOT APPLICABLE FOR DIALYSIS PATIENTS. Specimen Blood Performing Organization Address City/State/Zipcode Phone Number [facility] [address] [place] [address] CENTER IR G-Tube Replacement w/Fluoro (12/18/2018 11:35 AM CDT) Specimen Narrative Performed At FINAL REPORT [facility] Jejunostomy catheter exchange History: Malfunctioning jejunostomy catheter. Modality: Fluoroscopy Sedation: None Anesthesia:Two percent Lidocaine without epinephrine. Approach:Existing right lower quadrant jejunostomy catheter Estimated blood loss:< 5 cc. Specimen: None. tube machine operator helper: Santos Parish MD. [employer]: MD Jatin. Fluoroscopy Time: 0.9 min. Reference [...] then removed over a guidewire. A 14 [place] ROSA jejunostomy catheter was advanced over a guidewire into the jejunum. Contrast injected through the feeding port demonstrated that the catheter is appropriately positioned. The retention balloon was inflated. The patient tolerated the procedure well. Impression: Technically successful uncomplicated exchange of a jejunostomy catheter. The catheter is ready for immediate use. Signed: Santos Parish MD Report Verified Date/Time:12/18/2018 12:21:43 Reading Location: [place] [address] Angio Body Reading Room Procedure Note Interface, External Ris In - 12/18/2018 12:23 PM CDT FINAL REPORT Jejunostomy catheter exchange History: Malfunctioning jejunostomy catheter. Modality: Fluoroscopy Sedation: None Anesthesia: Two percent Lidocaine without epinephrine. Approach: Existing right lower quadrant jejunostomy catheter Estimated blood loss: < 5 cc. Specimen: None. tube machine operator helper: Santos Parish MD. [employer]: MD Jatin. Fluoroscopy Time: 0.9 min. Reference [...] then removed over a guidewire. A 14 [place] ROSA jejunostomy catheter was advanced over a guidewire into the jejunum. Contrast injected through the feeding port demonstrated that the catheter is appropriately positioned. The retention balloon was inflated. The patient tolerated the procedure well. Impression: Technically successful uncomplicated exchange of a jejunostomy catheter. The catheter is ready for immediate use. Signed: Santos Parish MD Report Verified Date/Time: 12/18/2018 12:21:43 Reading Location: [facility] P048 Angio Body Reading Room Performing Organization Address City/[facility] Phone Number GE RIS Prothrombin time/INR (12/18/2018 4:22 AM CDT) Protime 14.8 (H) 11.7 - 14.7 seconds [facility] INR 1.2 <=5.9 [facility] Specimen Blood Narrative Performed At RECOMMENDED COUMADIN/WARFARIN INR THERAPY [facility] RANGES STANDARD DOSE: 2.0 - 3.0 Includes: PROPHYLAXIS for venous thrombosis, systemic embolization; TREATMENT for venous thrombosis and/or pulmonary embolus. HIGH RISK: Target INR is 2.5-3.5 for patients with mechanical heart valves. Performing Organization Address [facility] Phone Number [address] [address] [phone] CENTER Creatinine (12/18/2018 4:22 AM CDT) Creatinine 1.24 0.57 - 1.25 mg/dL [facility] EGFR 69Comment: ESTIMATED GFR IS mL/min/1.73 sq m [facility] NOT ACCURATE CREATININE [facility] CENTER CLEARANCE IN PREDICTING GLOMERULAR FILTRATION RATE. ESTIMATED GFR IS NOT APPLICABLE FOR DIALYSIS PATIENTS. Specimen Blood Performing Organization Address [facility] Phone Number [address] [address] [phone] CENTER Vancomycin level, random (12/18/2018 4:22 AM CDT)Only the most recent of2 resultswithin the time period is included. Vancomycin Rm 17.5 ug/mL [facility] Specimen Blood Narrative Performed At Reference Range: No Normals [facility] Performing Organization Address [facility] Phone Number [address] [address] [phone] CENTER Vancomycin level, trough (12/17/2018 4:52 AM CDT)Only the most recent of2 resultswithin the time period is included. Vancomycin Tr 27.4 (H) 10.0 - 20.0 ug/mL [facility] Specimen Blood Narrative Performed At Draw 30 min prior to scheduled dose, HOLD if [facility] level > 20 mcg/mL, biju MILIAN. Performing Organization Address City/State/Zipcode Phone Number [facility] [address] [place] [address] abdomen/pelvis without iv contrast (12/15/2018 5:00 PM CDT) Specimen Narrative Performed At FINAL REPORT [employer] INDICATION: Pain at PEG tube and J-tube [...] MD Report Verified Date/Time:12/15/2018 17:43:35 Reading Location: [facility] B1 C013Y CT Body Reading Room Procedure [...] Report Verified Date/Time: 12/15/2018 17:43:35 Reading Location: [facility] B1 C013Y CT Body Reading Room Performing Organization Address City/State/Zipcode Phone Number [facility] Blood Culture - Routine (Right Venipuncture) (12/15/2018 1:08 PM CDT) Result No growth in 5 days [facility] Specimen Blood Performing Organization Address City/State/Zipcode Phone Number [address] [place] [address] [facility] Lactic acid, venous (12/15/2018 4:56 AM CDT) Lactate, Venous 1.2Comment: Specimen 0.5 - 2.2 mmol/L [facility] slightly hemolyzed [facility] Specimen Blood Narrative Performed At Post transfusion [facility] Performing Organization Address City/State/Zipcode Phone Number [address] [address] [phone] [facility] Urinalysis w/Microscopic + Reflex to Culture (12/15/2018 3:12 AM CDT) Color, UA Light Yellow [facility] Clarity, UA Hazy [facility] Specific [place], UA 1.009 1.001 - 1.035 [facility] pH, UA 6.5 5.0 - 8.0 [facility] Protein, UA 100 mg/dL (A) Negative [facility] Glucose, UA 500 mg/dL (A) Negative [facility] Ketones, UA Negative Negative [facility] Bilirubin, UA Negative Negative [facility] Blood, UA Trace (A) Negative [facility] Nitrite, UA Negative Negative [facility] Leukocytes, UA Large (A) Negative [facility] Urobilinogen, UA 0.2 0.2 - 1.0 mg/dL [facility] RBC, UA 3 /HPF [facility] WBC, UA 33Comment: Wbc clumps /HPF [facility] Bacteria, UA Few [facility] Mucus Rare [facility] Hyaline Casts, UA 2 /LPF [facility] Specimen Source [facility] Specimen Urine Performing Organization Address City/[facility] Phone Number [address] [address] [place] Urine culture (12/15/2018 3:12 AM CDT) Result <10,000 col/mL skin danie [facility] Specimen Urine Performing Organization Address [facility] Phone Number [address] [address] [facility] RHYTHM STRIP - SCAN (10/15/2018 9:20 AM CDT)Only the most recent of2 resultswithin the time period is included. Narrative Performed At Hemoglobin and hematocrit (08/11/2018 12:31 PM CUTTING ROOM SUPERVISOR)Only the most recent of3 resultswithin the time period is included. Hemoglobin 9.2 (L) 13.7 - 17.5 GM/DL [facility] Hematocrit 30.1 (L) 40.1 - 51.0 % [facility] Specimen Blood Performing Organization Address [facility] Phone Number [address] [address] [phone] [facility] Calcium, Ionized (08/11/2018 1:57 AM CUTTING ROOM SUPERVISOR) Calcium, Ion 1.09 (L) 1.12 - 1.27 mmol/L [facility] pH, Blood 7.44 [facility] Specimen Blood Performing Organization Address City/[facility] Phone Number [address] [address] CENTER Phosphorus (08/11/2018 1:57 AM CUTTING ROOM SUPERVISOR)Only the most recent of2 resultswithin the time period is included. Phosphorus 3.2 2.3 - 4.7 mg/dL [facility] Specimen Blood Performing Organization Address City/[facility] Phone Number [address] [phone] CENTER Magnesium (08/11/2018 1:57 AM CUTTING ROOM SUPERVISOR)Only the most recent of5 resultswithin the time period is included. Magnesium 1.8 1.6 - 2.6 mg/dL [facility] Specimen Blood Performing Organization Address City/[facility]/Zipcode Phone Number [address] [phone] [facility] Hemoglobin A1c (08/11/2018 1:57 AM CUTTING ROOM SUPERVISOR)Only the most recent of2 resultswithin the time period is included. Hemoglobin A1C 6.4 (H) 4.3 - 6.1 % [facility] Specimen Blood Performing Organization Address City/[facility] Phone Number [address] [address] [phone] [facility] Comprehensive metabolic panel (08/10/2018 6:20 PM CUTTING ROOM SUPERVISOR) Protein, Total 7.4 6.0 - 8.3 gm/dL [facility] Albumin 2.1 (L) 3.5 - 5.0 g/dL [facility] Alkaline Phosphatase 142 40 - 150 U/L [facility] Total Bilirubin 0.2 0.2 - 1.2 mg/dL [facility] Sodium 136 136 - 145 meq/L [facility] Potassium 4.0 3.5 - 5.1 meq/L [facility] Chloride 102 98 - 107 meq/L [facility] CO2 29 22 - 29 meq/L [facility] BUN 27 (H) 7 - 21 mg/dL [facility] Creatinine 1.33 (H) 0.57 - 1.25 mg/dL [facility] Glucose 51 (L) 70 - 105 mg/dL [facility] Calcium 8.6 8.4 - 10.2 mg/dL [facility] AST 37 (H) 5 - 34 U/L [facility] ALT 27 6 - 55 U/L [facility] EGFR 63Comment: ESTIMATED GFR mL/min/1.73 sq m [facility] IS NOT ACCURATE [facility] CREATININE CLEARANCE IN PREDICTING GLOMERULAR FILTRATION RATE. ESTIMATED GFR IS NOT APPLICABLE FOR DIALYSIS PATIENTS. Specimen Blood Performing Organization Address City/[facility] Phone Number [address] [address] [place] TRANSFUSION SERVICE REPORT - SCAN (07/16/2018 6:01 PM CUTTING ROOM SUPERVISOR)Only the most recent of3 resultswithin the time period is included. Narrative Performed At Prepare Leuko-Red RBC (07/15/2018 11:54 PM CUTTING ROOM SUPERVISOR) CROSSMATCH COMPATIBLE [employer]AF[employer] TX Unit ABO O Pos [employer] TX UNIT NUMBER [id number] [employer] [place] Status TRANSFUSED [employer] [place] Blood Bank Product RED BLOOD CELLS [employer] [place] PRODUCT CODE [id number] [place] Specimen Other Performing Organization Address [facility] Phone Number [facility] [place] Haptoglobin (07/15/2018 7:11 AM CUTTING ROOM SUPERVISOR) Haptoglobin 185 14 - 258 mg/dL [facility] Specimen Blood Performing Organization Address City/[facility] Phone Number [address] [address] [place] Peripheral Blood Smear - Path Review (07/14/2018 3:47 PM CUTTING ROOM SUPERVISOR) RBC Morphology Polychromasia [facility] Anisocytosis [facility] Poikilocytosis WBC Morphology Toxic Granulation [facility] Pathologist Review Cell counts confirmed. [facility] Pathologist: Rafaela Dowell M.D. [facility] (electronic signature) [facility] Specimen Blood Performing Organization Address City/[facility] Phone Number [facility] [address] C[place] Reticulocyte count (07/14/2018 3:47 PM CUTTING ROOM SUPERVISOR) % Retic 2.3 (H) 0.5 - 1.8 % [facility] Specimen Blood Performing Organization Address [facility] Phone Number [address] [address] C[place] Lactate dehydrogenase (LDH) (07/14/2018 1:03 PM CUTTING ROOM SUPERVISOR) LDH 338 (H)Comment: Specimen 125 - 220 U/L [facility] slightly hemolyzed [facility] Specimen Blood Performing Organization Address [facility] Phone Number [address] [address] [place] Hepatic function panel (07/14/2018 1:03 PM CUTTING ROOM SUPERVISOR) Protein, Total 4.8 (L)Comment: Specimen 6.0 - 8.3 gm/dL [facility] hemolyzed [facility] Albumin 1.2 (L)Comment: Specimen 3.5 - 5.0 g/dL [facility] hemolyzed [facility] Total Bilirubin 0.2Comment: Specimen 0.2 - 1.2 mg/dL [facility] Bilirubin, Direct 0.1Comment: Specimen 0.1 - 0.5 mg/dL [facility] hemolyzed [facility] Alkaline Phosphatase 74 40 - 150 U/L [facility] AST 38 (H)Comment: Specimen 5 - 34 U/L [facility] hemolyzed [facility] ALT 19Comment: Specimen 6 - 55 U/L [facility] hemolyzed [facility] Specimen Blood Performing Organization Address [facility] Phone Number [address] [address] [phone] CENTER Transfuse Leuko-Red RBC (07/14/2018 12:32 PM CUTTING ROOM SUPERVISOR)Only the most recent of2 resultswithin the time period is included.REPORT OF PROCEDURE - ENDOSCOPY URL ( 07/13/2018 3:20 PM CUTTING ROOM SUPERVISOR) Narrative Performed At Manual Differential (07/13/2018 5:54 AM CUTTING ROOM SUPERVISOR)Only the most recent of2 resultswithin the time period is included. % Neutros 89 % [facility] % Lymphs 5 % [facility] % Monos 5 % [facility] % Atypical Lymphs 1 (H) 0 - 0 % [facility] # Neutros 11.21 (H) 1.78 - 5.38 K/ul [facility] # Lymphs 0.63 (L) 1.32 - 3.57 K/ul [facility] # Monos 0.63 0.30 - 0.82 K/uL [facility] # Atypical Lymphs 0.13 (H) 0.00 - 0.00 K/uL [facility] Total Counted 100 [facility] Platelet Morphology Normal [facility] Smudge Cells Present [facility] Anisocytosis 1+ few [facility] Poikilocytes 2+ moderate [facility] Kp Cells 1+ few [facility] Platelet Conc Adequate [facility] Specimen Blood Narrative Performed At Received comment: [facility] User comments: Slide comments: Performing Organization Address City/State/Zipcode Phone Number [facility] [address] [place] [address] CENTER ECG 12 lead (07/12/2018 9: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) Specimen Narrative Performed At Ventricular Rate 100 BPM GE MUSE Atrial Rate 100 BPM P-R Interval 148 ms QRS Duration 90 ms Q-T Interval 344 ms QTC Calculation(Bazett) 443 ms P [place] 59 degrees R [place] -12 degrees T [place] 9 degrees Sinus rhythm with premature artial complexes Inferior infarct , age undetermined Abnormal ECG No previous ECGs available Confirmed by MD MARYJANE, IHAB ([id number]) on 07/13/2018 7:29:33 AM Procedure Note Interface, External Ris In - 07/13/2018 7:29 AM CUTTING ROOM SUPERVISOR Ventricular Rate 100 BPM Atrial Rate 100 BPM P-R Interval 148 ms QRS Duration 90 ms Q-T Interval 344 ms QTC Calculation(Bazett) 443 ms P [place] 59 degrees R [place] -12 degrees T [place] 9 degrees Sinus rhythm with premature artial complexes Inferior infarct , age undetermined Abnormal ECG No previous ECGs available Confirmed by MD MARYJANE, IHAB ([id number]) on 07/13/2018 7:29:33 AM Performing Organization Address City/State/Zipcode Phone Number GE MUSE Type and screen, automated (07/12/2018 6:21 AM CUTTING ROOM SUPERVISOR) ABO/RH AUTOMATED (BEAKER) O POSITIVE [facility] Ab Scrn NEGATIVE [facility] Specimen Blood Performing Organization Address City/State/Zipcode Phone Number [facility] [address] [place] [address] after 01/09/2018 Insurance Payer Benefit Plan / Group Subscriber ID Type Phone Address MEDICARE MEDICARE A B xxxxxxxxxxx Medicare MEDICAID MEDICAID [facility] xxxxxxxxx Medicaid Advance Directives For more information, please contact:[facility] [place] [address] [phone] Code Status Date Activated Date Inactivated Comments Full Code 12/15/2018 12:12 AM 12/19/2018 1:03 PM This code status was determined by: Patient Full Code 08/10/2018 8:12 PM 12/14/2018 10:50 PM This code status was determined by: Patient Full Code 07/11/2018 10:34 PM 08/10/2018 4:09 PM This code status was determined by: Patient
--- OUTSIDE RECORDS SUMMARY | 2019-01-10 07:24 | XMS REPORT ---
:1940 [facility] [address] [place] [address] Care Team Providers Name Role Phone JUAN [...] Value Reference Range Comments CULTURE (BEAKER) (test ocob=4438) No growth in 5 days POCT-GLUCOSE [id number] 06:10:00 Test Item Value Reference Range Comments POC-GLUCOSE METER (BEAKER) 135 mg/dL 70-110 TESTED AT [facility] [address] [facility] (test rxai=5982) [facility] [address] BASIC METABOLIC [id number] 06:01:00 Test Item Value Reference Range Comments SODIUM (BEAKER) (test 138 meq/L 136-145 nwir=986) POTASSIUM (BEAKER) (test 4.0 meq/L 3.5-5.1 Specimen slightly uaxm=614) hemolyzed CHLORIDE (BEAKER) (test 110 meq/L 98-107 wgrl=628) CO2 (BEAKER) (test 24 meq/L 22-29 nuwh=728) BLOOD UREA NITROGEN 13 mg/dL 7-21 (BEAKER) (test zawp=399) CREATININE (BEAKER) (test 1.13 mg/dL 0.57-1.25 Specimen slightly xfyz=001) hemolyzed GLUCOSE RANDOM (BEAKER) 110 mg/dL 70-105 (test mkvr=466) CALCIUM (BEAKER) (test 7.5 mg/dL 8.4-10.2 wumi=074) EGFR (BEAKER) (test 76 mL/min/1.73 sq m ESTIMATED GFR IS NOT vsfh=5808) ACCURATE CREATININE CLEARANCE IN PREDICTING GLOMERULAR FILTRATION RATE. ESTIMATED GFR IS NOT APPLICABLE FOR DIALYSIS PATIENTS. CBC W/PLT COUNT & AUTO [id number] 05:41:00 Test Item Value Reference Range Comments WHITE BLOOD CELL COUNT (BEAKER) (test kzhr=889) 8.1 K/ L 3.5-10.5 RED BLOOD CELL COUNT (BEAKER) (test cygq=917) 3.47 M/ L 4.63-6.08 HEMOGLOBIN (BEAKER) (test mesg=012) 9.9 GM/DL 13.7-17.5 HEMATOCRIT (BEAKER) (test nemb=433) 32.1 % 40.1-51.0 MEAN CORPUSCULAR VOLUME (BEAKER) (test hlcb=340) 92.5 fL 79.0-92.2 MEAN CORPUSCULAR HEMOGLOBIN (BEAKER) (test 28.5 pg 25.7-32.2 ifuy=721) MEAN CORPUSCULAR HEMOGLOBIN CONC (BEAKER) (test 30.8 GM/DL 32.3-36.5 kdnn=966) RED CELL DISTRIBUTION WIDTH (BEAKER) (test 15.9 % 11.6-14.4 axyr=411) PLATELET COUNT (BEAKER) (test tkma=263) 172 K/CU MM 150-450 MEAN PLATELET VOLUME (BEAKER) (test qxiv=155) 10.2 fL 9.4-12.4 NUCLEATED RED BLOOD CELLS (BEAKER) (test 0 /100 WBC 0-0 fzyl=919) NEUTROPHILS RELATIVE PERCENT (BEAKER) (test 72 % qslj=881) LYMPHOCYTES RELATIVE PERCENT (BEAKER) (test 14 % etib=909) MONOCYTES RELATIVE PERCENT (BEAKER) (test 10 % vquo=272) EOSINOPHILS RELATIVE PERCENT (BEAKER) (test 4 % hqiu=069) BASOPHILS RELATIVE PERCENT (BEAKER) (test 0 % xzjg=655) NEUTROPHILS ABSOLUTE COUNT (BEAKER) (test 5.78 K/ L 1.78-5.38 iizi=880) LYMPHOCYTES ABSOLUTE COUNT (BEAKER) (test 1.10 K/ L 1.32-3.57 xkxa=647) MONOCYTES ABSOLUTE COUNT (BEAKER) (test 0.80 K/ L 0.30-0.82 zdyf=345) EOSINOPHILS ABSOLUTE COUNT (BEAKER) (test 0.32 K/ L 0.04-0.54 obsv=027) BASOPHILS ABSOLUTE COUNT (BEAKER) (test 0.03 K/ L 0.01-0.08 hwhw=932) IMMATURE GRANULOCYTES-RELATIVE PERCENT (BEAKER) 0 % 0-1 (test hhce=9152) POCT-GLUCOSE [id number] 00:59:00 Test Item Value Reference Range Comments POC-GLUCOSE METER (BEAKER) 118 mg/dL 70-110 TESTED AT [address] (test fbfd=1764) [place] [id number] POCT-GLUCOSE [id number] 18:00:00 Test Item Value Reference Range Comments POC-GLUCOSE METER (BEAKER) 163 mg/dL 70-110 TESTED AT [address] (test pcpu=3830) [place] [id number] POCT-GLUCOSE [id number] 12:52:00 Test Item Value Reference Range Comments POC-GLUCOSE METER (BEAKER) 161 mg/dL 70-110 TESTED AT [address] (test mlbc=7461) [place] [address] ANG, REPLACE G TUBE, W/ [id number] 12:21:00Please replace feeding jejunostomy tube w/ shorter J tubeReason for exam:->J tube repositioningFINAL REPORT Jejunostomy catheter exchange History: Malfunctioning jejunostomy catheter. Modality: Fluoroscopy Sedation: None Anesthesia: Two percent Lidocaine without epinephrine. Approach: Existing right lower quadrant jejunostomy catheter Estimated blood loss: < 5 cc. Specimen: None. twine reeling machine operator: Santos Parish MD. Train Planner: MD Jatin. Fluoroscopy Time: 0.9 min.Reference Air [...] then removed over a guidewire. A 14 Yoruba ROSA jejunostomy catheter was advanced over a guidewire into the jejunum. Contrast injected through the feeding port demonstrated that the catheter is appropriately positioned. The retention balloon was inflated. The patient tolerated the procedure well. Impression : Technically successful uncomplicated exchange of a jejunostomy catheter. The catheter is ready for immediate use. Signed: Santos Parish MDReport Verified Date/Time: 2018 12:21:43 Reading Location: [place] [address] Angio Body Reading Room POCT- GLUCOSE [id number] 07:46:00 Test Item Value Reference Range Comments POC-GLUCOSE METER (BEAKER) 140 mg/dL 70-110 TESTED AT [facility] [address] [facility] (test moai=9273) [facility] [address] POCT-GLUCOSE [id number] 06:37:00 Test Item Value Reference Range Comments POC-GLUCOSE METER (BEAKER) 156 mg/dL 70-110 TESTED AT [facility] [address] [facility] (test prpp=7310) [facility] [address] [id number] 05:25:00 Test Item Value Reference Range Comments CREATININE (BEAKER) (test 1.24 mg/dL 0.57-1.25 xcke=177) EGFR (BEAKER) (test 69 mL/min/1.73 sq m ESTIMATED GFR IS NOT sdzx=2226) ACCURATE CREATININE CLEARANCE IN PREDICTING GLOMERULAR FILTRATION RATE. ESTIMATED GFR IS NOT APPLICABLE FOR DIALYSIS PATIENTS. PROTHROMBIN [id number] 05:21:00 Test Item Value Reference Range Comments PROTIME (BEAKER) (test byfp=750) 14.8 seconds 11.7-14.7 INR (BEAKER) (test srwc=484) 1.2 <=5.9 RECOMMENDED COUMADIN/WARFARIN INR THERAPY RANGESSTANDARD DOSE: 2.0 - 3.0 Includes: PROPHYLAXIS forvenous thrombosis, systemic embolization; TREATMENT for venous thrombosis and/or pulmonary embolus.HIGH RISK: Target INR is 2.5-3.5 for patients with mechanical heart valves.VANCOMYCIN LEVEL, [id number] 05: 21:00 Test Item Value Reference Range Comments VANCOMYCIN RANDOM (BEAKER) (test nfmk=688) 17.5 ug/mL Reference Range: No NormalsCBC W/PLT COUNT & AUTO [id number] 05: 19:00 Test Item Value Reference Range Comments WHITE BLOOD CELL COUNT (BEAKER) (test oaaw=802) 10.7 K/ L 3.5-10.5 RED BLOOD CELL COUNT (BEAKER) (test ofnf=392) 3.37 M/ L 4.63-6.08 HEMOGLOBIN (BEAKER) (test uwoz=677) 9.8 GM/DL 13.7-17.5 HEMATOCRIT (BEAKER) (test ogqh=804) 31.7 % 40.1-51.0 MEAN CORPUSCULAR VOLUME (BEAKER) (test njat=809) 94.1 fL 79.0-92.2 MEAN CORPUSCULAR HEMOGLOBIN (BEAKER) (test 29.1 pg 25.7-32.2 talo=097) MEAN CORPUSCULAR HEMOGLOBIN CONC (BEAKER) (test 30.9 GM/DL 32.3-36.5 dhcl=276) RED CELL DISTRIBUTION WIDTH (BEAKER) (test 16.1 % 11.6-14.4 bsha=446) PLATELET COUNT (BEAKER) (test jheh=021) 176 K/CU MM 150-450 MEAN PLATELET VOLUME (BEAKER) (test bcdy=277) 9.9 fL 9.4-12.4 NUCLEATED RED BLOOD CELLS (BEAKER) (test 0 /100 WBC 0-0 miix=098) NEUTROPHILS RELATIVE PERCENT (BEAKER) (test 80 % irqb=915) LYMPHOCYTES RELATIVE PERCENT (BEAKER) (test 9 % kpco=069) MONOCYTES RELATIVE PERCENT (BEAKER) (test 9 % vgsf=890) EOSINOPHILS RELATIVE PERCENT (BEAKER) (test 1 % ywso=225) BASOPHILS RELATIVE PERCENT (BEAKER) (test 0 % czpy=248) NEUTROPHILS ABSOLUTE COUNT (BEAKER) (test 8.58 K/ L 1.78-5.38 bqkp=877) LYMPHOCYTES ABSOLUTE COUNT (BEAKER) (test 0.92 K/ L 1.32-3.57 naii=538) MONOCYTES ABSOLUTE COUNT (BEAKER) (test 1.01 K/ L 0.30-0.82 twar=929) EOSINOPHILS ABSOLUTE COUNT (BEAKER) (test 0.14 K/ L 0.04-0.54 cfkx=052) BASOPHILS ABSOLUTE COUNT (BEAKER) (test 0.03 K/ L 0.01-0.08 kgcv=339) IMMATURE GRANULOCYTES-RELATIVE PERCENT (BEAKER) 0 % 0-1 (test qxow=2406) POCT-GLUCOSE [id number] 23:42:00 Test Item Value Reference Range Comments POC-GLUCOSE METER (BEAKER) 141 mg/dL 70-110 TESTED AT [address] (test hzga=2435) [facility] [address] POCT-GLUCOSE [id number] 18:27:00 Test Item Value Reference Range Comments POC-GLUCOSE METER (BEAKER) 158 mg/dL 70-110 TESTED AT [address] (test ovnb=0084) [facility] [address] POCT-GLUCOSE [id number] 12:42:00 Test Item Value Reference Range Comments POC-GLUCOSE METER (BEAKER) 122 mg/dL 70-110 TESTED AT [address] (test znlb=1830) [facility] [address] POCT-GLUCOSE [id number] 06:42:00 Test Item Value Reference Range Comments POC-GLUCOSE METER (BEAKER) 102 mg/dL 70-110 TESTED AT [address] (test oskw=9639) [facility] [address] BASIC METABOLIC [id number] 06:01:00 Test Item Value Reference Range Comments SODIUM (BEAKER) (test 143 meq/L 136-145 uijc=353) POTASSIUM (BEAKER) (test 3.8 meq/L 3.5-5.1 djlm=882) CHLORIDE (BEAKER) (test 115 meq/L 98-107 xyuf=524) CO2 (BEAKER) (test 25 meq/L 22-29 xtfk=876) BLOOD UREA NITROGEN 14 mg/dL 7-21 (BEAKER) (test cdsw=610) CREATININE (BEAKER) (test 1.30 mg/dL 0.57-1.25 nqhr=178) GLUCOSE RANDOM (BEAKER) 80 mg/dL 70-105 (test bffw=301) CALCIUM (BEAKER) (test 7.6 mg/dL 8.4-10.2 mota=232) EGFR (BEAKER) (test 65 mL/min/1.73 sq m ESTIMATED GFR IS NOT oldq=9756) ACCURATE CREATININE CLEARANCE IN PREDICTING GLOMERULAR FILTRATION RATE. ESTIMATED GFR IS NOT APPLICABLE FOR DIALYSIS PATIENTS. Post transfusionVANCOMYCIN LEVEL, [id number] 05:57:00 Test Item Value Reference Range Comments VANCOMYCIN TROUGH (BEAKER) (test oqhk=879) 27.4 ug/mL 10.0-20.0 Draw 30 min prior to scheduled dose, HOLD if level > 20 mcg/mL, inform MD.CBC W/PLT COUNT & AUTO [id number] 05:12:00 Test Item Value Reference Range Comments WHITE BLOOD CELL COUNT (BEAKER) (test xtpi=922) 8.3 K/ L 3.5-10.5 RED BLOOD CELL COUNT (BEAKER) (test fjci=191) 3.11 M/ L 4.63-6.08 HEMOGLOBIN (BEAKER) (test izpf=876) 8.9 GM/DL 13.7-17.5 HEMATOCRIT (BEAKER) (test vxwt=556) 29.0 % 40.1-51.0 MEAN CORPUSCULAR VOLUME (BEAKER) (test gajh=185) 93.2 fL 79.0-92.2 MEAN CORPUSCULAR HEMOGLOBIN (BEAKER) (test 28.6 pg 25.7-32.2 itqh=572) MEAN CORPUSCULAR HEMOGLOBIN CONC (BEAKER) (test 30.7 GM/DL 32.3-36.5 oqml=682) RED CELL DISTRIBUTION WIDTH (BEAKER) (test 16.6 % 11.6-14.4 grzv=315) PLATELET COUNT (BEAKER) (test yjkq=669) 182 K/CU MM 150-450 MEAN PLATELET VOLUME (BEAKER) (test tzwl=716) 9.8 fL 9.4-12.4 NUCLEATED RED BLOOD CELLS (BEAKER) (test 0 /100 WBC 0-0 rmmp=978) NEUTROPHILS RELATIVE PERCENT (BEAKER) (test 73 % qddf=225) LYMPHOCYTES RELATIVE PERCENT (BEAKER) (test 14 % lwck=383) MONOCYTES RELATIVE PERCENT (BEAKER) (test 9 % zeau=929) EOSINOPHILS RELATIVE PERCENT (BEAKER) (test 3 % gprr=265) BASOPHILS RELATIVE PERCENT (BEAKER) (test 1 % xzpw=983) NEUTROPHILS ABSOLUTE COUNT (BEAKER) (test 6.03 K/ L 1.78-5.38 bddb=925) LYMPHOCYTES ABSOLUTE COUNT (BEAKER) (test 1.15 K/ L 1.32-3.57 jpqz=129) MONOCYTES ABSOLUTE COUNT (BEAKER) (test 0.76 K/ L 0.30-0.82 ltki=699) EOSINOPHILS ABSOLUTE COUNT (BEAKER) (test 0.25 K/ L 0.04-0.54 ziqd=659) BASOPHILS ABSOLUTE COUNT (BEAKER) (test 0.05 K/ L 0.01-0.08 jyzq=339) IMMATURE GRANULOCYTES-RELATIVE PERCENT (BEAKER) 0 % 0-1 (test nflr=4432) POCT-GLUCOSE [id number] 23:43:00 Test Item Value Reference Range Comments POC-GLUCOSE METER (BEAKER) 84 mg/dL 70-110 TESTED AT [address] (test yzio=4328) [place] [address] POCT-GLUCOSE [id number] 17:38:00 Test Item Value Reference Range Comments POC-GLUCOSE METER (BEAKER) 77 mg/dL 70-110 TESTED AT [address] (test amkm=5173) [place] [address] POCT-GLUCOSE [id number] 11:50:00 Test Item Value Reference Range Comments POC-GLUCOSE METER (BEAKER) 78 mg/dL 70-110 TESTED AT [address] (test gcas=1134) [place] [address] POCT-GLUCOSE [id number] 05:39:00 Test Item Value Reference Range Comments POC-GLUCOSE METER (BEAKER) 97 mg/dL 70-110 TESTED AT [address] (test gcuz=3060) [place] [id number] BASIC METABOLIC [id number] 05:29:00 Test Item Value Reference Range Comments SODIUM (BEAKER) (test 144 meq/L 136-145 ygsj=488) POTASSIUM (BEAKER) (test 3.8 meq/L 3.5-5.1 btwi=123) CHLORIDE (BEAKER) (test 115 meq/L 98-107 mzwl=851) CO2 (BEAKER) (test 25 meq/L 22-29 duxc=660) BLOOD UREA NITROGEN 14 mg/dL 7-21 (BEAKER) (test tori=659) CREATININE (BEAKER) (test 1.20 mg/dL 0.57-1.25 mnjr=895) GLUCOSE RANDOM (BEAKER) 80 mg/dL 70-105 (test vzkz=650) CALCIUM (BEAKER) (test 7.9 mg/dL 8.4-10.2 scgn=525) EGFR (BEAKER) (test 71 mL/min/1.73 sq m ESTIMATED GFR IS NOT piwf=9359) ACCURATE CREATININE CLEARANCE IN PREDICTING GLOMERULAR FILTRATION RATE. ESTIMATED GFR IS NOT APPLICABLE FOR DIALYSIS PATIENTS. Post transfusionCBC W/PLT COUNT & AUTO [id number] 05:08:00 Test Item Value Reference Range Comments WHITE BLOOD CELL COUNT (BEAKER) (test wvax=238) 9.9 K/ L 3.5-10.5 RED BLOOD CELL COUNT (BEAKER) (test ohgy=350) 3.20 M/ L 4.63-6.08 HEMOGLOBIN (BEAKER) (test mmkh=812) 9.2 GM/DL 13.7-17.5 HEMATOCRIT (BEAKER) (test yhts=591) 29.1 % 40.1-51.0 MEAN CORPUSCULAR VOLUME (BEAKER) (test alfx=055) 90.9 fL 79.0-92.2 MEAN CORPUSCULAR HEMOGLOBIN (BEAKER) (test 28.8 pg 25.7-32.2 boqw=285) MEAN CORPUSCULAR HEMOGLOBIN CONC (BEAKER) (test 31.6 GM/DL 32.3-36.5 uztc=432) RED CELL DISTRIBUTION WIDTH (BEAKER) (test 17.4 % 11.6-14.4 dktr=041) PLATELET COUNT (BEAKER) (test dgkl=546) 189 K/CU MM 150-450 MEAN PLATELET VOLUME (BEAKER) (test diit=529) 10.2 fL 9.4-12.4 NUCLEATED RED BLOOD CELLS (BEAKER) (test 0 /100 WBC 0-0 nmcx=333) NEUTROPHILS RELATIVE PERCENT (BEAKER) (test 75 % yfwt=550) LYMPHOCYTES RELATIVE PERCENT (BEAKER) (test 12 % mfrz=646) MONOCYTES RELATIVE PERCENT (BEAKER) (test 8 % hvcq=340) EOSINOPHILS RELATIVE PERCENT (BEAKER) (test 5 % qmoq=256) BASOPHILS RELATIVE PERCENT (BEAKER) (test 0 % jrop=393) NEUTROPHILS ABSOLUTE COUNT (BEAKER) (test 7.36 K/ L 1.78-5.38 cwya=110) LYMPHOCYTES ABSOLUTE COUNT (BEAKER) (test 1.20 K/ L 1.32-3.57 okll=524) MONOCYTES ABSOLUTE COUNT (BEAKER) (test 0.77 K/ L 0.30-0.82 jodo=819) EOSINOPHILS ABSOLUTE COUNT (BEAKER) (test 0.45 K/ L 0.04-0.54 urvh=074) BASOPHILS ABSOLUTE COUNT (BEAKER) (test 0.04 K/ L 0.01-0.08 iamp=234) IMMATURE GRANULOCYTES-RELATIVE PERCENT (BEAKER) 0 % 0-1 (test tgov=4231) POCT-GLUCOSE [id number] 02:09:00 Test Item Value Reference Range Comments POC-GLUCOSE METER (BEAKER) 130 mg/dL 70-110 TESTED AT [address] (test foqt=3424) [place] [address] POCT-GLUCOSE [id number] 00:46:00 Test Item Value Reference Range Comments POC-GLUCOSE METER (BEAKER) 71 mg/dL 70-110 TESTED AT [address] (test ibes=9969) [place] [address] POCT-GLUCOSE [id number] 23:45:00 Test Item Value Reference Range Comments POC-GLUCOSE METER (BEAKER) 80 mg/dL 70-110 TESTED AT [address] (test hmtt=2851) [place] [address] POCT-GLUCOSE [id number] 18:03:00 Test Item Value Reference Range Comments POC-GLUCOSE METER (BEAKER) 128 mg/dL 70-110 TESTED AT [address] (test sikm=6274) [place] [address] CT, [id number] 17:43:00FINAL REPORT INDICATION: Pain at PEG tube [...] Verified Date/Time: 12/15/2018 17:43 :35 Reading Location: [facility] C013Y CT Body Reading Room CBC W/PLT COUNT & AUTO [id number] 13:31:00 Test Item Value Reference Range Comments WHITE BLOOD CELL COUNT (BEAKER) (test vjlu=248) 10.7 K/ L 3.5-10.5 RED BLOOD CELL COUNT (BEAKER) (test nsxz=618) 3.52 M/ L 4.63-6.08 HEMOGLOBIN (BEAKER) (test fcib=635) 10.1 GM/DL 13.7-17.5 HEMATOCRIT (BEAKER) (test iybe=167) 31.7 % 40.1-51.0 MEAN CORPUSCULAR VOLUME (BEAKER) (test pjjk=274) 90.1 fL 79.0-92.2 MEAN CORPUSCULAR HEMOGLOBIN (BEAKER) (test 28.7 pg 25.7-32.2 saxu=437) MEAN CORPUSCULAR HEMOGLOBIN CONC (BEAKER) (test 31.9 GM/DL 32.3-36.5 zklm=271) RED CELL DISTRIBUTION WIDTH (BEAKER) (test 18.0 % 11.6-14.4 tadx=443) PLATELET COUNT (BEAKER) (test zvfr=756) 191 K/CU MM 150-450 MEAN PLATELET VOLUME (BEAKER) (test ipsd=239) 9.6 fL 9.4-12.4 NUCLEATED RED BLOOD CELLS (BEAKER) (test 0 /100 WBC 0-0 rzgk=343) NEUTROPHILS RELATIVE PERCENT (BEAKER) (test 78 % xfhr=857) LYMPHOCYTES RELATIVE PERCENT (BEAKER) (test 10 % bslp=766) MONOCYTES RELATIVE PERCENT (BEAKER) (test 7 % ncab=745) EOSINOPHILS RELATIVE PERCENT (BEAKER) (test 4 % igdm=013) BASOPHILS RELATIVE PERCENT (BEAKER) (test 0 % ywwx=585) NEUTROPHILS ABSOLUTE COUNT (BEAKER) (test 8.27 K/ L 1.78-5.38 dyeb=094) LYMPHOCYTES ABSOLUTE COUNT (BEAKER) (test 1.09 K/ L 1.32-3.57 cvch=139) MONOCYTES ABSOLUTE COUNT (BEAKER) (test 0.78 K/ L 0.30-0.82 xpfo=069) EOSINOPHILS ABSOLUTE COUNT (BEAKER) (test 0.45 K/ L 0.04-0.54 gmbt=536) BASOPHILS ABSOLUTE COUNT (BEAKER) (test 0.03 K/ L 0.01-0.08 yphx=686) IMMATURE GRANULOCYTES-RELATIVE PERCENT (BEAKER) 0 % 0-1 (test rflg=1390) POCT-GLUCOSE [id number] 11:40:00 Test Item Value Reference Range Comments POC-GLUCOSE METER (BEAKER) 172 mg/dL 70-110 TESTED AT [address] (test sqnk=6593) [place] [address] POCT-GLUCOSE [id number] 06:43:00 Test Item Value Reference Range Comments POC-GLUCOSE METER (BEAKER) 248 mg/dL 70-110 TESTED AT [address] (test uikm=4442) [place] [address] BASIC METABOLIC [id number] 06:04:00 Test Item Value Reference Range Comments SODIUM (BEAKER) (test 144 meq/L 136-145 jiyr=764) POTASSIUM (BEAKER) (test 3.8 meq/L 3.5-5.1 ogwb=013) CHLORIDE (BEAKER) (test 115 meq/L 98-107 mbxn=794) CO2 (BEAKER) (test 24 meq/L 22-29 vwcw=945) BLOOD UREA NITROGEN 19 mg/dL 7-21 (BEAKER) (test nwcr=804) CREATININE (BEAKER) (test 1.57 mg/dL 0.57-1.25 xvof=610) GLUCOSE RANDOM (BEAKER) 172 mg/dL 70-105 (test mdsg=157) CALCIUM (BEAKER) (test 7.9 mg/dL 8.4-10.2 crvc=421) EGFR (BEAKER) (test 52 mL/min/1.73 sq m ESTIMATED GFR IS NOT yuav=4846) ACCURATE CREATININE CLEARANCE IN PREDICTING GLOMERULAR FILTRATION RATE. ESTIMATED GFR IS NOT APPLICABLE FOR DIALYSIS PATIENTS. Post transfusionLACTIC ACID, [id number] 05:41:00 Test Item Value Reference Range Comments LACTATE BLOOD VENOUS (2) 1.2 mmol/L 0.5-2.2 Specimen slightly hemolyzed (BEAKER) (test iglf=4491) Post transfusionCBC W/PLT COUNT & AUTO [id number] 05:38:00 Test Item Value Reference Range Comments WHITE BLOOD CELL COUNT (BEAKER) (test qyxe=544) 12.4 K/ L 3.5-10.5 RED BLOOD CELL COUNT (BEAKER) (test eivc=455) 3.43 M/ L 4.63-6.08 HEMOGLOBIN (BEAKER) (test zhoa=914) 9.8 GM/DL 13.7-17.5 HEMATOCRIT (BEAKER) (test ajkj=434) 31.8 % 40.1-51.0 MEAN CORPUSCULAR VOLUME (BEAKER) (test unbd=460) 92.7 fL 79.0-92.2 MEAN CORPUSCULAR HEMOGLOBIN (BEAKER) (test 28.6 pg 25.7-32.2 rwcg=482) MEAN CORPUSCULAR HEMOGLOBIN CONC (BEAKER) (test 30.8 GM/DL 32.3-36.5 qqmg=964) RED CELL DISTRIBUTION WIDTH (BEAKER) (test 17.8 % 11.6-14.4 jiwj=671) PLATELET COUNT (BEAKER) (test caur=762) 182 K/CU MM 150-450 MEAN PLATELET VOLUME (BEAKER) (test vusz=811) 10.1 fL 9.4-12.4 NUCLEATED RED BLOOD CELLS (BEAKER) (test 0 /100 WBC 0-0 wanq=484) NEUTROPHILS RELATIVE PERCENT (BEAKER) (test 75 % lwey=665) LYMPHOCYTES RELATIVE PERCENT (BEAKER) (test 9 % aykn=074) MONOCYTES RELATIVE PERCENT (BEAKER) (test 12 % bdka=336) EOSINOPHILS RELATIVE PERCENT (BEAKER) (test 3 % vfvx=538) BASOPHILS RELATIVE PERCENT (BEAKER) (test 0 % apfh=994) NEUTROPHILS ABSOLUTE COUNT (BEAKER) (test 9.33 K/ L 1.78-5.38 qjil=346) LYMPHOCYTES ABSOLUTE COUNT (BEAKER) (test 1.16 K/ L 1.32-3.57 ubpp=255) MONOCYTES ABSOLUTE COUNT (BEAKER) (test 1.44 K/ L 0.30-0.82 nonn=910) EOSINOPHILS ABSOLUTE COUNT (BEAKER) (test 0.35 K/ L 0.04-0.54 jyjv=984) BASOPHILS ABSOLUTE COUNT (BEAKER) (test 0.03 K/ L 0.01-0.08 jmgk=087) IMMATURE GRANULOCYTES-RELATIVE PERCENT (BEAKER) 1 % 0-1 (test bdno=7787) URINALYSIS W/ REFLEX URINE [id number] 05:12:00 Test Item Value Reference Range Comments COLOR (BEAKER) (test xhqi=896) Light Yellow CLARITY (BEAKER) (test juwj=370) Hazy SPECIFIC GRAVITY UA (BEAKER) (test 1.009 1.001-1.035 wlbz=156) PH UA (BEAKER) (test jlla=996) 6.5 5.0-8.0 PROTEIN UA (BEAKER) (test zjht=292) 100 mg/dL Negative GLUCOSE UA (BEAKER) (test ydku=312) 500 mg/dL Negative KETONES UA (BEAKER) (test jewh=387) Negative Negative BILIRUBIN UA (BEAKER) (test mhpa=020) Negative Negative BLOOD UA (BEAKER) (test jydu=805) Trace Negative NITRITE UA (BEAKER) (test ioaj=444) Negative Negative LEUKOCYTE ESTERASE UA (BEAKER) (test Large Negative wcyd=975) UROBILINOGEN UA (BEAKER) (test adls=622) 0.2 mg/dL 0.2-1.0 RBC UA (BEAKER) (test resy=270) 3 /HPF WBC UA (BEAKER) (test vhjh=654) 33 /HPF Wbc clumps seen BACTERIA (BEAKER) (test txyw=867) Few MUCUS (BEAKER) (test riyw=6116) Rare HYALINE CASTS (BEAKER) (test ddkp=112) 2 /LPF SOURCE(BEAKER) (test erto=5952) POCT-GLUCOSE [id number] 00:38:00 Test Item Value Reference Range Comments POC-GLUCOSE METER (BEAKER) 275 mg/dL 70-110 TESTED AT [address] (test skcx=2710) [place] [address] HEMOGLOBIN [id number] 13:06:00 Test Item Value Reference Range Comments HEMOGLOBIN A1C (BEAKER) (test tvqe=630) 6.4 % 4.3-6.1 HEMOGLOBIN [id number] 13:06:00 Test Item Value Reference Range Comments HEMOGLOBIN A1C (BEAKER) (test pwpk=889) 6.3 % 4.3-6.1 HEMOGLOBIN AND [id number] 12:45:00 Test Item Value Reference Range Comments HEMOGLOBIN (BEAKER) (test azgr=483) 9.2 GM/DL 13.7-17.5 HEMATOCRIT (BEAKER) (test xzys=798) 30.1 % 40.1-51.0 POCT-GLUCOSE [id number] 12:00:00 Test Item Value Reference Range Comments POC-GLUCOSE METER (BEAKER) 98 mg/dL 70-110 TESTED AT [address] (test reac=3955) [place] [address] POCT-GLUCOSE [id number] 06:19:00 Test Item Value Reference Range Comments POC-GLUCOSE METER (BEAKER) 120 mg/dL 70-110 TESTED AT [address] (test sfyg=0769) [place] [address] [id number] 02:40:00 Test Item Value Reference Range Comments PHOSPHORUS (BEAKER) (test wssc=735) 3.2 mg/dL 2.3-4.7 [id number] 02:40:00 Test Item Value Reference Range Comments MAGNESIUM (BEAKER) (test noms=888) 1.8 mg/dL 1.6-2.6 BASIC METABOLIC [id number] 02:40:00 Test Item Value Reference Range Comments SODIUM (BEAKER) (test 134 meq/L 136-145 prbp=385) POTASSIUM (BEAKER) (test 4.2 meq/L 3.5-5.1 khrm=543) CHLORIDE (BEAKER) (test 102 meq/L 98-107 bqng=995) CO2 (BEAKER) (test 27 meq/L 22-29 bdth=282) BLOOD UREA NITROGEN 24 mg/dL 7-21 (BEAKER) (test vemu=762) CREATININE (BEAKER) (test 1.31 mg/dL 0.57-1.25 cfnr=792) GLUCOSE RANDOM (BEAKER) 77 mg/dL 70-105 (test mzlw=354) CALCIUM (BEAKER) (test 8.6 mg/dL 8.4-10.2 rggh=551) EGFR (BEAKER) (test 64 mL/min/1.73 sq m ESTIMATED GFR IS NOT ltio=3387) ACCURATE CREATININE CLEARANCE IN PREDICTING GLOMERULAR FILTRATION RATE. ESTIMATED GFR IS NOT APPLICABLE FOR DIALYSIS PATIENTS. CALCIUM, [id number] 02:18:00 Test Item Value Reference Range Comments CALCIUM IONIZED (BEAKER) (test epuy=028) 1.09 mmol/L 1.12-1.27 PH, BLOOD (BEAKER) (test cdvf=9981) 7.44 HEMOGLOBIN AND [id number] 02:10:00 Test Item Value Reference Range Comments HEMOGLOBIN (BEAKER) (test msuf=604) 9.8 GM/DL 13.7-17.5 HEMATOCRIT (BEAKER) (test kfyo=191) 31.9 % 40.1-51.0 CBC W/PLT COUNT & AUTO [id number] 02:10:00 Test Item Value Reference Range Comments WHITE BLOOD CELL COUNT (BEAKER) (test aybk=087) 10.1 K/ L 3.5-10.5 RED BLOOD CELL COUNT (BEAKER) (test xntd=990) 3.54 M/ L 4.63-6.08 HEMOGLOBIN (BEAKER) (test zwpq=180) 9.8 GM/DL 13.7-17.5 HEMATOCRIT (BEAKER) (test owwv=603) 31.9 % 40.1-51.0 MEAN CORPUSCULAR VOLUME (BEAKER) (test fkob=911) 90.1 fL 79.0-92.2 MEAN CORPUSCULAR HEMOGLOBIN (BEAKER) (test 27.7 pg 25.7-32.2 trha=456) MEAN CORPUSCULAR HEMOGLOBIN CONC (BEAKER) (test 30.7 GM/DL 32.3-36.5 uasw=674) RED CELL DISTRIBUTION WIDTH (BEAKER) (test 17.7 % 11.6-14.4 qnyo=888) PLATELET COUNT (BEAKER) (test mzvd=449) 209 K/CU MM 150-450 MEAN PLATELET VOLUME (BEAKER) (test cdoy=861) 9.9 fL 9.4-12.4 NUCLEATED RED BLOOD CELLS (BEAKER) (test 0 /100 WBC 0-0 jdxc=922) NEUTROPHILS RELATIVE PERCENT (BEAKER) (test 77 % jlml=462) LYMPHOCYTES RELATIVE PERCENT (BEAKER) (test 11 % jlcj=394) MONOCYTES RELATIVE PERCENT (BEAKER) (test 10 % nuuy=453) EOSINOPHILS RELATIVE PERCENT (BEAKER) (test 2 % dnkz=536) BASOPHILS RELATIVE PERCENT (BEAKER) (test 0 % dwer=644) NEUTROPHILS ABSOLUTE COUNT (BEAKER) (test 7.78 K/ L 1.78-5.38 ayeb=303) LYMPHOCYTES ABSOLUTE COUNT (BEAKER) (test 1.07 K/ L 1.32-3.57 ttve=732) MONOCYTES ABSOLUTE COUNT (BEAKER) (test 1.04 K/ L 0.30-0.82 olpo=899) EOSINOPHILS ABSOLUTE COUNT (BEAKER) (test 0.17 K/ L 0.04-0.54 wyki=701) BASOPHILS ABSOLUTE COUNT (BEAKER) (test 0.02 K/ L 0.01-0.08 jsnn=032) IMMATURE GRANULOCYTES-RELATIVE PERCENT (BEAKER) 0 % 0-1 (test tkcl=4040) POCT-GLUCOSE [id number] 01:36:00 Test Item Value Reference Range Comments POC-GLUCOSE METER (BEAKER) 97 mg/dL 70-110 TESTED AT [address] (test jiut=6828) [place] [id number] POCT-GLUCOSE [id number] 22:56:00 Test Item Value Reference Range Comments POC-GLUCOSE METER (BEAKER) 70 mg/dL 70-110 TESTED AT [address] (test gsvu=4338) [place] [address] [id number] 19:59:00 Test Item Value Reference Range Comments PHOSPHORUS (BEAKER) (test hiso=362) 3.2 mg/dL 2.3-4.7 [id number] 19:59:00 Test Item Value Reference Range Comments MAGNESIUM (BEAKER) (test tzps=598) 1.9 mg/dL 1.6-2.6 COMPREHENSIVE METABOLIC [id number] 19:59:00 Test Item Value Reference Range Comments TOTAL PROTEIN (BEAKER) 7.4 gm/dL 6.0-8.3 (test kstq=766) ALBUMIN (BEAKER) (test 2.1 g/dL 3.5-5.0 wsfz=8821) ALKALINE PHOSPHATASE 142 U/L 40-150 (BEAKER) (test hxtx=653) BILIRUBIN TOTAL (BEAKER) 0.2 mg/dL 0.2-1.2 (test neiz=327) SODIUM (BEAKER) (test 136 meq/L 136-145 wodu=322) POTASSIUM (BEAKER) (test 4.0 meq/L 3.5-5.1 hkjo=800) CHLORIDE (BEAKER) (test 102 meq/L 98-107 eqcp=571) CO2 (BEAKER) (test 29 meq/L 22-29 poaj=567) BLOOD UREA NITROGEN 27 mg/dL 7-21 (BEAKER) (test gxmh=379) CREATININE (BEAKER) (test 1.33 mg/dL 0.57-1.25 antt=752) GLUCOSE RANDOM (BEAKER) 51 mg/dL 70-105 (test foha=658) CALCIUM (BEAKER) (test 8.6 mg/dL 8.4-10.2 fpcj=002) AST (SGOT) (BEAKER) (test 37 U/L 5-34 anpn=557) ALT (SGPT) (BEAKER) (test 27 U/L 6-55 cpyw=729) EGFR (BEAKER) (test 63 mL/min/1.73 sq m ESTIMATED GFR IS NOT bucu=9375) ACCURATE CREATININE CLEARANCE IN PREDICTING GLOMERULAR FILTRATION RATE. ESTIMATED GFR IS NOT APPLICABLE FOR DIALYSIS PATIENTS. CBC W/PLT COUNT & AUTO [id number] 19:45:00 Test Item Value Reference Range Comments WHITE BLOOD CELL COUNT (BEAKER) (test uxkc=755) 10.5 K/ L 3.5-10.5 RED BLOOD CELL COUNT (BEAKER) (test krrj=910) 3.65 M/ L 4.63-6.08 HEMOGLOBIN (BEAKER) (test foxm=830) 10.2 GM/DL 13.7-17.5 HEMATOCRIT (BEAKER) (test zxrv=676) 33.6 % 40.1-51.0 MEAN CORPUSCULAR VOLUME (BEAKER) (test caom=161) 92.1 fL 79.0-92.2 MEAN CORPUSCULAR HEMOGLOBIN (BEAKER) (test 27.9 pg 25.7-32.2 rkel=000) MEAN CORPUSCULAR HEMOGLOBIN CONC (BEAKER) (test 30.4 GM/DL 32.3-36.5 eayb=311) RED CELL DISTRIBUTION WIDTH (BEAKER) (test 17.6 % 11.6-14.4 ldhe=358) PLATELET COUNT (BEAKER) (test kpwc=919) 213 K/CU MM 150-450 MEAN PLATELET VOLUME (BEAKER) (test euvl=669) 10.7 fL 9.4-12.4 NUCLEATED RED BLOOD CELLS (BEAKER) (test 0 /100 WBC 0-0 kvtm=089) NEUTROPHILS RELATIVE PERCENT (BEAKER) (test 81 % qauh=834) LYMPHOCYTES RELATIVE PERCENT (BEAKER) (test 8 % rlif=858) MONOCYTES RELATIVE PERCENT (BEAKER) (test 9 % bade=512) EOSINOPHILS RELATIVE PERCENT (BEAKER) (test 2 % touq=018) BASOPHILS RELATIVE PERCENT (BEAKER) (test 0 % srlo=320) NEUTROPHILS ABSOLUTE COUNT (BEAKER) (test 8.47 K/ L 1.78-5.38 ufoa=765) LYMPHOCYTES ABSOLUTE COUNT (BEAKER) (test 0.79 K/ L 1.32-3.57 tkga=876) MONOCYTES ABSOLUTE COUNT (BEAKER) (test 0.96 K/ L 0.30-0.82 ayhh=810) EOSINOPHILS ABSOLUTE COUNT (BEAKER) (test 0.22 K/ L 0.04-0.54 qvtt=082) BASOPHILS ABSOLUTE COUNT (BEAKER) (test 0.03 K/ L 0.01-0.08 tffb=381) IMMATURE GRANULOCYTES-RELATIVE PERCENT (BEAKER) 0 % 0-1 (test zkpb=9193) HEMOGLOBIN AND [id number] 19:43:00 Test Item Value Reference Range Comments HEMOGLOBIN (BEAKER) (test stus=719) 10.2 GM/DL 13.7-17.5 HEMATOCRIT (BEAKER) (test ugtm=385) 33.6 % 40.1-51.0 POCT-GLUCOSE [id number] 16:53:00 Test Item Value Reference Range Comments POC-GLUCOSE METER (BEAKER) 83 mg/dL 70-110 TESTED AT [facility] [address] [facility] (test jyeu=4680) [place] [id number] PERIPHERAL BLOOD SMEAR - PATHOLOGIST [id number] 11:31:00 Test Item Value Reference Range Comments RBC MORPHOLOGY (BEAKER) Polychromasia (test trda=7669) RBC MORPHOLOGY (BEAKER) Anisocytosis (test ujdx=96930) RBC MORPHOLOGY (BEAKER) Poikilocytosis (test hohu=46962) WBC MORPHOLOGY (BEAKER) Toxic Granulation (test tzkr=8036) PERIPHERAL SMR REVIEW Cell counts confirmed. (BEAKER) (test watp=9838) [id number] Rafaela Dowell M.D. (electronic (BEAKER) (test rdti=1867) signature) POCT-GLUCOSE [id number] 08:24:00 Test Item Value Reference Range Comments POC-GLUCOSE METER (BEAKER) 236 mg/dL 70-110 TESTED AT [address] (test jxzm=7474) [place] [id number] 07:35:00 Test Item Value Reference Range Comments HAPTOGLOBIN (BEAKER) (test tknc=040) 185 mg/dL 14-258 BASIC METABOLIC [id number] 07:34:00 Test Item Value Reference Range Comments SODIUM (BEAKER) (test 141 meq/L 136-145 egux=452) POTASSIUM (BEAKER) (test 4.2 meq/L 3.5-5.1 upwz=077) CHLORIDE (BEAKER) (test 112 meq/L 98-107 gxel=008) CO2 (BEAKER) (test 26 meq/L 22-29 gstx=105) BLOOD UREA NITROGEN 23 mg/dL 7-21 (BEAKER) (test dmhm=110) CREATININE (BEAKER) (test 1.23 mg/dL 0.57-1.25 skbj=938) GLUCOSE RANDOM (BEAKER) 186 mg/dL 70-105 (test dcjl=181) CALCIUM (BEAKER) (test 8.0 mg/dL 8.4-10.2 pyvp=644) EGFR (BEAKER) (test 69 mL/min/1.73 sq m ESTIMATED GFR IS NOT lzkc=7358) ACCURATE CREATININE CLEARANCE IN PREDICTING GLOMERULAR FILTRATION RATE. ESTIMATED GFR IS NOT APPLICABLE FOR DIALYSIS PATIENTS. CBC W/PLT COUNT & AUTO [id number] 07:21:00 Test Item Value Reference Range Comments WHITE BLOOD CELL COUNT (BEAKER) (test vequ=702) 8.9 K/ L 3.5-10.5 RED BLOOD CELL COUNT (BEAKER) (test mreo=810) 3.26 M/ L 4.63-6.08 HEMOGLOBIN (BEAKER) (test wgwl=272) 9.1 GM/DL 13.7-17.5 HEMATOCRIT (BEAKER) (test fjzt=157) 29.6 % 40.1-51.0 MEAN CORPUSCULAR VOLUME (BEAKER) (test qlsg=085) 90.8 fL 79.0-92.2 MEAN CORPUSCULAR HEMOGLOBIN (BEAKER) (test 27.9 pg 25.7-32.2 jdor=608) MEAN CORPUSCULAR HEMOGLOBIN CONC (BEAKER) (test 30.7 GM/DL 32.3-36.5 iujs=716) RED CELL DISTRIBUTION WIDTH (BEAKER) (test 17.9 % 11.6-14.4 wwmg=317) PLATELET COUNT (BEAKER) (test sygv=760) 211 K/CU MM 150-450 MEAN PLATELET VOLUME (BEAKER) (test grrf=758) 10.3 fL 9.4-12.4 NUCLEATED RED BLOOD CELLS (BEAKER) (test 0 /100 WBC 0-0 fjpe=470) NEUTROPHILS RELATIVE PERCENT (BEAKER) (test 73 % hldy=720) LYMPHOCYTES RELATIVE PERCENT (BEAKER) (test 12 % tcgd=494) MONOCYTES RELATIVE PERCENT (BEAKER) (test 12 % rjrh=323) EOSINOPHILS RELATIVE PERCENT (BEAKER) (test 2 % fkwl=940) BASOPHILS RELATIVE PERCENT (BEAKER) (test 0 % isit=360) NEUTROPHILS ABSOLUTE COUNT (BEAKER) (test 6.49 K/ L 1.78-5.38 pctn=452) LYMPHOCYTES ABSOLUTE COUNT (BEAKER) (test 1.11 K/ L 1.32-3.57 cmzj=973) MONOCYTES ABSOLUTE COUNT (BEAKER) (test 1.08 K/ L 0.30-0.82 qbnm=964) EOSINOPHILS ABSOLUTE COUNT (BEAKER) (test 0.19 K/ L 0.04-0.54 hhth=759) BASOPHILS ABSOLUTE COUNT (BEAKER) (test 0.02 K/ L 0.01-0.08 qdra=955) IMMATURE GRANULOCYTES-RELATIVE PERCENT (BEAKER) 0 % 0-1 (test elny=8010) POCT-GLUCOSE [id number] 06:39:00 Test Item Value Reference Range Comments POC-GLUCOSE METER (BEAKER) 239 mg/dL 70-110 TESTED AT [address] (test hbkc=9706) [facility] [address] POCT-GLUCOSE [id number] 23:40:00 Test Item Value Reference Range Comments POC-GLUCOSE METER (BEAKER) 234 mg/dL 70-110 TESTED AT [address] (test kugr=5675) [place] [id number] POCT-GLUCOSE [id number] 17:26:00 Test Item Value Reference Range Comments POC-GLUCOSE METER (BEAKER) 257 mg/dL 70-110 TESTED AT [address] (test outk=2141) [facility] [address] BASIC METABOLIC [id number] 16:15:00 Test Item Value Reference Range Comments SODIUM (BEAKER) (test 140 meq/L 136-145 pttp=123) POTASSIUM (BEAKER) (test 4.6 meq/L 3.5-5.1 mdtf=531) CHLORIDE (BEAKER) (test 111 meq/L 98-107 lwme=070) CO2 (BEAKER) (test 25 meq/L 22-29 odty=304) BLOOD UREA NITROGEN 24 mg/dL 7-21 (BEAKER) (test ouju=009) CREATININE (BEAKER) (test 1.21 mg/dL 0.57-1.25 nzak=440) GLUCOSE RANDOM (BEAKER) 195 mg/dL 70-105 (test tcjd=045) CALCIUM (BEAKER) (test 8.2 mg/dL 8.4-10.2 mpqj=254) EGFR (BEAKER) (test 71 mL/min/1.73 sq m ESTIMATED GFR IS NOT hckt=4216) ACCURATE CREATININE CLEARANCE IN PREDICTING GLOMERULAR FILTRATION RATE. ESTIMATED GFR IS NOT APPLICABLE FOR DIALYSIS PATIENTS. RETICULOCYTE [id number] 15:59:00 Test Item Value Reference Range Comments RETICULOCYTE COUNT PCT (BEAKER) (test zojs=133) 2.3 % 0.5-1.8 HEPATIC FUNCTION [id number] 13:31:00 Test Item Value Reference Range Comments TOTAL PROTEIN (BEAKER) (test 4.8 gm/dL 6.0-8.3 Specimen slightly hemolyzed zffu=367) ALBUMIN (BEAKER) (test 1.2 g/dL 3.5-5.0 Specimen slightly hemolyzed dzyx=9543) BILIRUBIN TOTAL (BEAKER) (test 0.2 mg/dL 0.2-1.2 Specimen slightly hemolyzed ijcb=941) BILIRUBIN DIRECT (BEAKER) (test 0.1 mg/dL 0.1-0.5 Specimen slightly hemolyzed qhqg=371) ALKALINE PHOSPHATASE (BEAKER) 74 U/L 40-150 (test kyci=615) AST (SGOT) (BEAKER) (test 38 U/L 5-34 Specimen slightly hemolyzed uush=581) ALT (SGPT) (BEAKER) (test 19 U/L 6-55 Specimen slightly hemolyzed nsso=055) LACTATE DEHYDROGENASE (LDH)2018-07-14 13:30:00 Test Item Value Reference Range Comments LACTATE DEHYDROGENASE (BEAKER) 338 U/L 125-220 Specimen slightly hemolyzed (test gqme=204) CBC W/PLT COUNT & AUTO [id number] 13:17:00 Test Item Value Reference Range Comments WHITE BLOOD CELL COUNT (BEAKER) (test thzn=178) 11.2 K/ L 3.5-10.5 RED BLOOD CELL COUNT (BEAKER) (test sucs=715) 3.14 M/ L 4.63-6.08 HEMOGLOBIN (BEAKER) (test xhlo=749) 8.6 GM/DL 13.7-17.5 HEMATOCRIT (BEAKER) (test khxc=495) 28.2 % 40.1-51.0 MEAN CORPUSCULAR VOLUME (BEAKER) (test xxpx=857) 89.8 fL 79.0-92.2 MEAN CORPUSCULAR HEMOGLOBIN (BEAKER) (test 27.4 pg 25.7-32.2 lrze=031) MEAN CORPUSCULAR HEMOGLOBIN CONC (BEAKER) (test 30.5 GM/DL 32.3-36.5 fewb=540) RED CELL DISTRIBUTION WIDTH (BEAKER) (test 17.2 % 11.6-14.4 rwwi=232) PLATELET COUNT (BEAKER) (test biqq=511) 196 K/CU MM 150-450 MEAN PLATELET VOLUME (BEAKER) (test ijtk=882) 10.2 fL 9.4-12.4 NUCLEATED RED BLOOD CELLS (BEAKER) (test 0 /100 WBC 0-0 rldl=348) NEUTROPHILS RELATIVE PERCENT (BEAKER) (test 79 % kyws=893) LYMPHOCYTES RELATIVE PERCENT (BEAKER) (test 9 % ikdq=244) MONOCYTES RELATIVE PERCENT (BEAKER) (test 11 % tyea=260) EOSINOPHILS RELATIVE PERCENT (BEAKER) (test 1 % uhws=581) BASOPHILS RELATIVE PERCENT (BEAKER) (test 0 % qnfy=231) NEUTROPHILS ABSOLUTE COUNT (BEAKER) (test 8.88 K/ L 1.78-5.38 yxnp=161) LYMPHOCYTES ABSOLUTE COUNT (BEAKER) (test 0.96 K/ L 1.32-3.57 ffvc=843) MONOCYTES ABSOLUTE COUNT (BEAKER) (test 1.26 K/ L 0.30-0.82 gvnv=325) EOSINOPHILS ABSOLUTE COUNT (BEAKER) (test 0.06 K/ L 0.04-0.54 erei=723) BASOPHILS ABSOLUTE COUNT (BEAKER) (test 0.02 K/ L 0.01-0.08 tffy=865) IMMATURE GRANULOCYTES-RELATIVE PERCENT (BEAKER) 0 % 0-1 (test yfmb=2034) POCT-GLUCOSE [id number] 12:30:00 Test Item Value Reference Range Comments POC-GLUCOSE METER (BEAKER) 193 mg/dL 70-110 TESTED AT [facility] [address] [facility] (test fusg=0132) [facility] [address] VANCOMYCIN LEVEL, [id number] 09:00:00 Test Item Value Reference Range Comments VANCOMYCIN RANDOM (BEAKER) (test lgcn=139) 22.6 ug/mL Reference Range: No [id number] 07:29:00 Test Item Value Reference Range Comments MAGNESIUM (BEAKER) (test kthh=815) 1.9 mg/dL 1.6-2.6 BASIC METABOLIC [id number] 07:29:00 Test Item Value Reference Range Comments SODIUM (BEAKER) (test 141 meq/L 136-145 kdoo=092) POTASSIUM (BEAKER) (test 3.7 meq/L 3.5-5.1 mptq=144) CHLORIDE (BEAKER) (test 113 meq/L 98-107 ghcz=057) CO2 (BEAKER) (test 23 meq/L 22-29 yhpr=322) BLOOD UREA NITROGEN 23 mg/dL 7-21 (BEAKER) (test lvbs=952) CREATININE (BEAKER) (test 1.11 mg/dL 0.57-1.25 cptg=635) GLUCOSE RANDOM (BEAKER) 100 mg/dL 70-105 (test kkjz=150) CALCIUM (BEAKER) (test 8.2 mg/dL 8.4-10.2 yrwf=041) EGFR (BEAKER) (test 78 mL/min/1.73 sq m ESTIMATED GFR IS NOT krke=5565) ACCURATE CREATININE CLEARANCE IN PREDICTING GLOMERULAR FILTRATION RATE. ESTIMATED GFR IS NOT APPLICABLE FOR DIALYSIS PATIENTS. CBC W/PLT COUNT & AUTO [id number] 07:00:00 Test Item Value Reference Range Comments WHITE BLOOD CELL COUNT (BEAKER) (test zcmg=829) 11.9 K/ L 3.5-10.5 RED BLOOD CELL COUNT (BEAKER) (test jezh=643) 2.36 M/ L 4.63-6.08 HEMOGLOBIN (BEAKER) (test ecfs=095) 6.6 GM/DL 13.7-17.5 HEMATOCRIT (BEAKER) (test otqu=707) 21.2 % 40.1-51.0 MEAN CORPUSCULAR VOLUME (BEAKER) (test fjrh=714) 89.8 fL 79.0-92.2 MEAN CORPUSCULAR HEMOGLOBIN (BEAKER) (test 28.0 pg 25.7-32.2 cxfa=256) MEAN CORPUSCULAR HEMOGLOBIN CONC (BEAKER) (test 31.1 GM/DL 32.3-36.5 mnod=053) RED CELL DISTRIBUTION WIDTH (BEAKER) (test 18.6 % 11.6-14.4 bluk=110) PLATELET COUNT (BEAKER) (test mxbr=647) 210 K/CU MM 150-450 MEAN PLATELET VOLUME (BEAKER) (test mqea=926) 10.7 fL 9.4-12.4 NUCLEATED RED BLOOD CELLS (BEAKER) (test 0 /100 WBC 0-0 umxc=916) NEUTROPHILS RELATIVE PERCENT (BEAKER) (test 77 % nisk=825) LYMPHOCYTES RELATIVE PERCENT (BEAKER) (test 10 % rlgm=010) MONOCYTES RELATIVE PERCENT (BEAKER) (test 12 % siem=502) EOSINOPHILS RELATIVE PERCENT (BEAKER) (test 0 % qrto=155) BASOPHILS RELATIVE PERCENT (BEAKER) (test 0 % pshk=051) NEUTROPHILS ABSOLUTE COUNT (BEAKER) (test 9.19 K/ L 1.78-5.38 zgdn=915) LYMPHOCYTES ABSOLUTE COUNT (BEAKER) (test 1.21 K/ L 1.32-3.57 jpqm=229) MONOCYTES ABSOLUTE COUNT (BEAKER) (test 1.38 K/ L 0.30-0.82 gshb=518) EOSINOPHILS ABSOLUTE COUNT (BEAKER) (test 0.03 K/ L 0.04-0.54 sszf=935) BASOPHILS ABSOLUTE COUNT (BEAKER) (test 0.04 K/ L 0.01-0.08 ffra=356) IMMATURE GRANULOCYTES-RELATIVE PERCENT (BEAKER) 0 % 0-1 (test hvab=0576) POCT-GLUCOSE [id number] 06:47:00 Test Item Value Reference Range Comments POC-GLUCOSE METER (BEAKER) 128 mg/dL 70-110 TESTED AT [address] (test gwpl=5320) [place] [id number] POCT-GLUCOSE [id number] 01:25:00 Test Item Value Reference Range Comments POC-GLUCOSE METER (BEAKER) 81 mg/dL 70-110 TESTED AT [address] (test idub=1238) [place] [address] VANCOMYCIN LEVEL, [id number] 21:59:00 Test Item Value Reference Range Comments VANCOMYCIN TROUGH (BEAKER) (test meas=457) 26.3 ug/mL 10.0-20.0 WAIT FOR LEVEL TO RETURN BEFORE GIVING DOSE. If vancomycin trough level > 20 , HOLD dose and contact MD and pharmacist.POCT-GLUCOSE [id number] 17:48:00 Test Item Value Reference Range Comments POC-GLUCOSE METER (BEAKER) 96 mg/dL 70-110 TESTED AT [address] (test cnub=9861) [place] [id number] POCT-GLUCOSE [id number] 15:40:00 Test Item Value Reference Range Comments POC-GLUCOSE METER (BEAKER) 106 mg/dL 70-110 [facility]ED [facility] [address] [facility] (test gdrq=0324) [facility] [address] CBC W/PLT COUNT & AUTO [id number] 14:21:00 Test Item Value Reference Range Comments WHITE BLOOD CELL COUNT (BEAKER) (test fxju=797) 12.6 K/ L 3.5-10.5 RED BLOOD CELL COUNT (BEAKER) (test hxof=659) 2.64 M/ L 4.63-6.08 HEMOGLOBIN (BEAKER) (test hgbl=931) 7.3 GM/DL 13.7-17.5 HEMATOCRIT (BEAKER) (test pipe=085) 23.8 % 40.1-51.0 MEAN CORPUSCULAR VOLUME (BEAKER) (test chsr=689) 90.2 fL 79.0-92.2 MEAN CORPUSCULAR HEMOGLOBIN (BEAKER) (test 27.7 pg 25.7-32.2 mntc=387) MEAN CORPUSCULAR HEMOGLOBIN CONC (BEAKER) (test 30.7 GM/DL 32.3-36.5 diaf=737) RED CELL DISTRIBUTION WIDTH (BEAKER) (test 18.2 % 11.6-14.4 stzp=027) PLATELET COUNT (BEAKER) (test zywy=221) 225 K/CU MM 150-450 MEAN PLATELET VOLUME (BEAKER) (test zlsk=767) 10.6 fL 9.4-12.4 NUCLEATED RED BLOOD CELLS (BEAKER) (test 0 /100 WBC 0-0 echu=378) (CELLAVISION MANUAL DIFF)[id number] 14:21:00 Test Item Value Reference Range Comments NEUTROPHILS - REL (CELLAVISION)(BEAKER) (test 89 % myeu=3080) LYMPHOCYTES - REL (CELLAVISION)(BEAKER) (test 5 % btmo=7630) MONOCYTES - REL (CELLAVISION)(BEAKER) (test 5 % uwoz=1106) ATYPICAL LYMPHOCYTES - REL (CELLAVISION)(BEAKER) 1 % 0-0 (test qwlr=5655) NEUTROPHILS - ABS (CELLAVISION)(BEAKER) (test 11.21 K/ul 1.78-5.38 tujg=5796) LYMPHOCYTES - ABS (CELLAVISION)(BEAKER) (test 0.63 K/ul 1.32-3.57 tpwk=0705) MONOCYTES - ABS (CELLAVISION)(BEAKER) (test 0.63 K/uL 0.30-0.82 ogkk=9567) ATYPICAL LYMPHOCYTES - ABS (CELLAVISION)(BEAKER) 0.13 K/uL 0.00-0.00 (test jqvh=2359) TOTAL COUNTED (BEAKER) (test glnq=4882) 100 PLT MORPHOLOGY (BEAKER) (test woan=991) Normal SMUDGE CELLS (BEAKER) (test tpvc=7266) Present ANISOCYTOSIS (BEAKER) (test jyfc=398) 1+ few POIKILOCYTES (BEAKER) (test mhkl=847) 2+ moderate CESILIA CELLS (BEAKER) (test anzf=024) 1+ few PLATELET CONCENTRATION (CELLAVISION)(BEAKER) Adequate (test zrxj=8425) Received comment: User comments: Slide comments:POCT-GLUCOSE [id number] 12: 02:00 Test Item Value Reference Range Comments POC-GLUCOSE METER (BEAKER) 84 mg/dL 70-110 TESTED AT [facility] [address] [facility] (test uhtw=6809) [facility] [address] [id number] 07:12:00 Test Item Value Reference Range Comments MAGNESIUM (BEAKER) (test arhd=328) 1.6 mg/dL 1.6-2.6 BASIC METABOLIC [id number] 07:12:00 Test Item Value Reference Range Comments SODIUM (BEAKER) (test 140 meq/L 136-145 fnug=699) POTASSIUM (BEAKER) (test 3.7 meq/L 3.5-5.1 ndkh=919) CHLORIDE (BEAKER) (test 110 meq/L 98-107 zmfz=556) CO2 (BEAKER) (test 25 meq/L 22-29 kdnm=541) BLOOD UREA NITROGEN 27 mg/dL 7-21 (BEAKER) (test kjxc=336) CREATININE (BEAKER) (test 1.07 mg/dL 0.57-1.25 jyky=729) GLUCOSE RANDOM (BEAKER) 67 mg/dL 70-105 (test qwlj=860) CALCIUM (BEAKER) (test 8.5 mg/dL 8.4-10.2 eqje=025) EGFR (BEAKER) (test 81 mL/min/1.73 sq m ESTIMATED GFR IS NOT isnv=3383) ACCURATE CREATININE CLEARANCE IN PREDICTING GLOMERULAR FILTRATION RATE. ESTIMATED GFR IS NOT APPLICABLE FOR DIALYSIS PATIENTS. POCT-GLUCOSE [id number] 06:24:00 Test Item Value Reference Range Comments POC-GLUCOSE METER (BEAKER) 71 mg/dL 70-110 TESTED AT [address] (test iwve=3579) [place] [address] POCT-GLUCOSE [id number] 00:20:00 Test Item Value Reference Range Comments POC-GLUCOSE METER (BEAKER) 106 mg/dL 70-110 TESTED AT [address] (test gbfn=9122) [place] [address] POCT-GLUCOSE [id number] 18:43:00 Test Item Value Reference Range Comments POC-GLUCOSE METER (BEAKER) 104 mg/dL 70-110 TESTED AT [address] (test dvjr=9592) [place] [id number] POCT-GLUCOSE [id number] 12:56:00 Test Item Value Reference Range Comments POC-GLUCOSE METER (BEAKER) 113 mg/dL 70-110 TESTED AT [address] (test hclh=2503) [place] [address] CBC W/PLT COUNT & AUTO [id number] 11:01:00 Test Item Value Reference Range Comments WHITE BLOOD CELL COUNT (BEAKER) (test ulnb=777) 12.9 K/ L 3.5-10.5 RED BLOOD CELL COUNT (BEAKER) (test zqny=447) 2.66 M/ L 4.63-6.08 HEMOGLOBIN (BEAKER) (test ghuj=713) 7.5 GM/DL 13.7-17.5 HEMATOCRIT (BEAKER) (test iysr=977) 24.1 % 40.1-51.0 MEAN CORPUSCULAR VOLUME (BEAKER) (test imcp=803) 90.6 fL 79.0-92.2 MEAN CORPUSCULAR HEMOGLOBIN (BEAKER) (test 28.2 pg 25.7-32.2 hgvs=271) MEAN CORPUSCULAR HEMOGLOBIN CONC (BEAKER) (test 31.1 GM/DL 32.3-36.5 qndb=193) RED CELL DISTRIBUTION WIDTH (BEAKER) (test 18.4 % 11.6-14.4 atuy=797) PLATELET COUNT (BEAKER) (test zapd=075) 208 K/CU MM 150-450 MEAN PLATELET VOLUME (BEAKER) (test bsgr=795) 10.8 fL 9.4-12.4 NUCLEATED RED BLOOD CELLS (BEAKER) (test 0 /100 WBC 0-0 wgwh=866) (CELLAVISION MANUAL DIFF)2018-07-12 11:01:00 Test Item Value Reference Range Comments NEUTROPHILS - REL (CELLAVISION)(BEAKER) (test 86 % jmcw=4749) LYMPHOCYTES - REL (CELLAVISION)(BEAKER) (test 1 % aflr=1279) MONOCYTES - REL (CELLAVISION)(BEAKER) (test 9 % jmds=2212) BANDS - REL (CELLAVISION)(BEAKER) (test 3 % 0-10 ffiy=3498) ATYPICAL LYMPHOCYTES - REL (CELLAVISION)(BEAKER) 1 % 0-0 (test nhwm=9370) NEUTROPHILS - ABS (CELLAVISION)(BEAKER) (test 11.09 K/ul 1.78-5.38 wrhh=6693) LYMPHOCYTES - ABS (CELLAVISION)(BEAKER) (test 0.13 K/ul 1.32-3.57 nwzo=0491) MONOCYTES - ABS (CELLAVISION)(BEAKER) (test 1.16 K/uL 0.30-0.82 kxhf=4290) BANDS - ABS (CELLAVISION)(BEAKER) (test 0.39 K/uL 0.00-0.80 mdjt=4941) ATYPICAL LYMPHOCYTES - ABS (CELLAVISION)(BEAKER) 0.13 K/uL 0.00-0.00 (test drvk=6844) TOTAL COUNTED (BEAKER) (test moal=6778) 100 WBC MORPHOLOGY (BEAKER) (test rbqw=613) Normal PLT MORPHOLOGY (BEAKER) (test auuw=237) Normal POLYCHROMATOPHILLIC RBCS(BEAKER) (test jkgc=040) 1+ few HYPOCHROMIA (BEAKER) (test nuwh=938) 1+ few ARTIFACT (CELLAVISION)(BEAKER) (test gldq=0300) Present PLATELET CONCENTRATION (CELLAVISION)(BEAKER) Adequate (test logv=6552) Received comment: User comments: Slide comments:POCT-GLUCOSE [id number] 07: 57:00 Test Item Value Reference Range Comments POC-GLUCOSE METER (BEAKER) 96 mg/dL 70-110 TESTED AT [facility] [address] [facility] (test wjie=3589) [place] [address] [id number] 07:34:00 Test Item Value Reference Range Comments MAGNESIUM (BEAKER) (test khoe=915) 1.8 mg/dL 1.6-2.6 BASIC METABOLIC [id number] 07:34:00 Test Item Value Reference Range Comments SODIUM (BEAKER) (test 138 meq/L 136-145 aznf=548) POTASSIUM (BEAKER) (test 4.0 meq/L 3.5-5.1 xces=428) CHLORIDE (BEAKER) (test 108 meq/L 98-107 jywn=155) CO2 (BEAKER) (test 26 meq/L 22-29 aprv=371) BLOOD UREA NITROGEN 33 mg/dL 7-21 (BEAKER) (test friv=856) CREATININE (BEAKER) (test 1.10 mg/dL 0.57-1.25 wiad=575) GLUCOSE RANDOM (BEAKER) 79 mg/dL 70-105 (test ifms=714) CALCIUM (BEAKER) (test 8.4 mg/dL 8.4-10.2 jcnl=053) EGFR (BEAKER) (test 79 mL/min/1.73 sq m ESTIMATED GFR IS NOT xglx=5547) ACCURATE CREATININE CLEARANCE IN PREDICTING GLOMERULAR FILTRATION RATE. ESTIMATED GFR IS NOT APPLICABLE FOR DIALYSIS PATIENTS.
--- NOTE | 2019-01-10 07:32 | EKG ---
Test Date: 2019-01-10 Test Time: 07:01:26 Tracing Lathe Set Up Operator: NNEKA MEASUREMENT RESULTS: Intervals: Rate: 86 MT: 204 QRSD: 118 QT: 408 QTc: 488 [place]es: P: -7 MT: 204 QRS: 1 T: 119 INTERPRETIVE STATEMENTS: sinus rhythm Nonspecific intraventricular conduction delay ST & T wave abnormality, consider anterior ischemia Prolonged QT Abnormal ECG Compared to ECG 12/14/2018 15:32:16 Intraventricular conduction delay now present ST (T wave) deviation now present Possible ischemia now present Prolonged QT interval now present Atrial premature complex(es) no longer present Myocardial infarct finding no longer present Electronically Signed On 01-10-19 07:32:05 CDT by Malik Oshea
[2019-01-10 07:39] LABS: ALT/SGPT 28 U/L (12-78); AST/SGOT 56 U/L (15-37); Albumin 0.9 g/dL (3.4-5.0); Alkaline Phosphatase 138 U/L (45-117); BUN Blood Urea Nitrogen 110 mg/dL (7-18); Bicarbonate 14 mmol/L (21-32); Bilirubin Direct < 0.1 mg/dL (0-0.2); Bilirubin Total 0.2 mg/dL (0.2-1.0); Glucose Level 399 mg/dL (74-106); Lipase 67 U/L (73-393); Magnesium 2.7 mg/dL (1.8-2.4); NT PRO-BNP 1617 pg/mL (<450); Protein, Total 5.7 g/dL (6.4-8.2); Sodium Level 155 mmol/L (136-145); Troponin (Emerg Dept Use Only) 0.34 ng/mL (0.0-0.045)
[2019-01-10 07:40] LABS: Potassium 6.3 mmol/L (3.5-5.1)
[2019-01-10] MEDS ORDERED: CEFEPIME/SWI 1gm 10 ML IV ONE (07:45)
[2019-01-10] MEDS ORDERED: VANCOMYCIN/NS 1 gm 1 GM/250 ML BAG IV ONE (07:45)
[2019-01-10] MEDS ORDERED: NOREPINEPHRINE 4mg/D5W 250mL 4 MG/250 ML BAG IV ONE (07:50)
[2019-01-10] MEDS ORDERED: PANTOPRAZOLE 40 MG INJ ONE (07:53)
[2019-01-10] MEDS ORDERED: NA CHLORIDE 0.9% 1,000 ML ONE ×2 (07:53→09:05)
[2019-01-10] MEDS ORDERED: CALCIUM GLUCONATE 1gm/100 ML NS (4.65 mEq/100mL) IV ONE ×2 (08:00)
[2019-01-10] MEDS ORDERED: INSULIN -REGULAR HUMAN 50 UNIT/0.5 ML ML ONE (08:06)
[2019-01-10] MEDS ORDERED: ALBUTEROL 2.5 MG/3 ML NEB SOL ONE (08:06)
[2019-01-10] MEDS ORDERED: D50W 25 GM/50 ML SYRINGE IV ONE (08:06)
--- NOTE | 2019-01-10 09:01 | RAD REPORT ---
EXAM DESCRIPTION: RAD - Chest Single View - 01/10/2019 8:47 am CLINICAL HISTORY: Intubation, respiratory arrest COMPARISON: None. TECHNIQUE: AP portable chest image was obtained 0844 hours . FINDINGS: Endotracheal tube is in place. Tip is mid aortic arch level 2 cm above the noreen. Right-s ided Port-A-Cath in place. Lung volumes are low. Atelectasis and/ or infiltrate seen at the left base . No significant right renal parenchymal process. Heart and vasculature are normal. No measurable ple ural effusion and no pneumothorax. No acute bony abnormality seen. No acute aortic findings suspected . IMPRESSION: Endotracheal tube in good position mid aortic arch level. This is 2 cm above the noreen. Infiltrate and/ or atelectasis left lung base.
[2019-01-10 09:05] LABS: Urine Blood 1+ (NEG); Urine Glucose NEGATIVE (NEG); Urine Protein 2+ (NEG); Urine Specific Gravity 1.015 (1.005-1.030)
[2019-01-10] MEDS ORDERED: NA CHLORIDE 0.9% 250 ML ONE (09:05)
[2019-01-10 09:16] LABS: Arterial Blood Carboxyhemoglob 0.7 % (0-1.5); Blood Gas Oxyhemoglobin 85.8 % (94-97); Blood O2 Saturation 87.5 % (92-98.5)
[2019-01-10 09:16] LABS: Anisocytosis 2+; Blood Morphology Comment NOTED (NOT SEEN); Platelet Estimate ADEQ; Toxic Granulation 1+
[2019-01-10 09:17] LABS: Burr Cells 2+
[2019-01-10] MEDS ORDERED: NOREPINEPHRINE 4 MG in D5W 250 ML IV PRN (09:24)
[2019-01-10] MEDS ORDERED: DOPAMINE/D5W 400 MG/250 ML BAG IV PRN (09:24)
[2019-01-10] MEDS ORDERED: VASOPRESSIN 80 UNIT in NA CHLORIDE 0.9% 250 ML IV PRN (09:24)
[2019-01-10] MEDS ORDERED: DOPAMINE/D5W 400 MG/250 ML BAG IV ONE (09:25)
[2019-01-10] MEDS ORDERED: NACHLORIDE 0.45% 1,000 ML with NA BICARB 8.4% 100 MEQ IV SCH ×2 (10:00)
[2019-01-10] MEDS ORDERED: PANTOPRAZOLE INJ 80 MG in NA CHLORIDE 0.9% 250 ML IV SCH (10:00)
[2019-01-10] MEDS ORDERED: EPINEPHrine 1 MG/10 ML SYR ONE (10:43)
[2019-01-10] MEDS ORDERED: EPINEPHrine 4 MG in NA CHLORIDE 0.9% 250 ML IV PRN (10:59)
[2019-01-10 11:29] LABS: Potassium 5.9 mmol/L (3.5-5.1)
--- NOTE | 2019-01-10 11:45 | P.CNS ---
Date of Consult: 01/10/19 Reason for Consult: TONIE Chief Complaint: cardiac arrest History of Present Illness: Pt is intubated , Hx obtained from chart and family A 78 Y[facility]o man [facility], with pmhx if chronic anemia, CKD, baseline Cr ~1.5, and [facility], pt prolonged CPR with ROSC now hypotensive on 2 pressers labs na 155, K6.3, bicarb 14, Hb 5.0 unresponive to painful stimuli , puipil not reacting to light Allergies butorphanol tartrate [From Stadol] Allergy (Verified 11/04/18 22:40) Unknown ibuprofen Allergy (Verified 12/04/18 23:28) unknown midazolam HCl [From Versed] Allergy (Verified 11/04/18 22:40) Unknown Home Medications: Amlodipine [Norvasc*] 5 mg FT DAILY 11/04/18 Aspirin Chewable [Aspirin Chewable*] 81 mg FT DAILY 11/04/18 Atorvastatin Calcium [Lipitor] 80 mg FT BEDTIME 11/04/18 Carvedilol [Coreg*] 25 mg FT BEDTIME 11/04/18 Clopidogrel Bisulfate [Plavix*] 75 mg FT DAILY 11/04/18 Codeine/APAP [Tylenol #3*] 1 tab FT Q6HP PRN 11/04/18 Cyclobenzaprine HCl 10 mg FT Q8HP PRN 11/04/18 Docusate Sodium 10 ml FT DAILY 11/04/18 Famotidine [Pepcid] 40 mg FT BEDTIME 11/04/18 Hydralazine [Apresoline*] 25 mg FT TID 11/04/18 Insulin Aspart [Novolog] See Protocol SQ BID 11/04/18 Multivit &Minerals/Ferrous Fum [Multivitamin Liquid] 5 ml FT DAILY 11/04/18 PARoxetine HCl [Paxil*] 10 mg FT DAILY 11/04/18 Tramadol HCl [Ultram] 50 mg FT Q6HP PRN 11/04/18 Calcium Alginate [Mir] 1 each TP DAILY 12/04/18 - Past Medical/Surgical History Diabetic: Yes -: Diabetes mellitus type 2 -: CVA with Right sided weakness Apr 2014 -: HTN -: Chronic renal disease -: Contracture to the right lower extremity -: History of UTIs, sepsis -: PEG tube in place due to malnutrition -: Depression -: GERD -: LIPIDS -: PEG tube placement Psychosocial/ Personal History: Sister has power of attorney lawyer. He currently lives at a half-way. - Social History Smoking Status: Unknown if ever smoked Alcohol use: No CD- Drugs: No Caffeine use: No Physical Examination General: Comatose, Other (puipil not recting to light ) HEENT: Atraumatic Neck: Supple Respiratory: Clear to auscultation bilaterally Cardiovascular: Regular rate/rhythm, Normal S1 S2, Edema Gastrointestinal: Soft and benign Musculoskeletal: Swelling Laboratory Data (last 24 hrs) 01/10/19 07:04: PT 15.3 H, INR 1.31 01/10/19 07:04: WBC 19.7 H, Hgb 5.0 L*, Hct 17.6 L*, Plt Count 146 L 01/10/19 07:04: Sodium 155 H, Potassium 6.3 H*, BUN 110 H, Creatinine 7.34 H*, Glucose 399 H, Magnesium 2.7 H D, Total Bilirubin 0.2, AST 56 H, ALT 28, Alkaline Phosphatase 138 H, Lipase 67 L - Problems (1) TONIE (acute kidney injury) Current Visit: Yes Status: Acute Conclusions/Impression: TONIE due to ischemic ATN Cont pressers pt with overall poor prognosis and hypotensive on 2 pressers, thr risk of initiating renal replacement therapy are outweigh the benefits, discussed with family hypernatremia will switch fluid to hypoteonic once bicarb and K level improved Hypoxic brain injury hyperkalmeia recived treatment cont bicarb drip S/P cardiac arrest on 2 pressers with hypotension edema Acute on chronic anemia receiving PRBC pt with very poor prognosis , I discussed goal of care with family , they understand that pt in a critical condition , but still unsure about his code status
--- NOTE | 2019-01-10 11:53 | ER ---
Nurse's Notes [facility] Name: Leonardo Kumari Age: 78 yrs Sex: Male : 1940 Arrival Date: 01/10/2019 Time: 07:02 Bed 3 Private MD: Diagnosis: Cardiop[ulmonary arrest, sepsis, hyperkalemia, acute on chronic renal failure, severe anemia Presentation: 01/10 07:00 Presenting complaint: EMS states: Called out for respiratory distress, upon arrival to [facility] staff was doing CPR because the pt stopped breathing. Care prior to arrival: Medication(s) given: D50, 1 amp, Normal saline infusion, 500 mL, Epinephrine x 3. Compressions began prior to arrival. 07:00 Method Of Arrival: EMS: [facility] 07:00 Initial Sepsis Screen: Does the patient meet any 2 criteria? No. Patient's initial sepsis screen is negative. Does the patient have a suspected source of infection? No. Patient's initial sepsis screen is negative. 07:00 Transition of care: patient was not received from another setting of care. Onset of symptoms was January 10, 2019. Risk Assessment: Do you want to hurt yourself or someone else? Unable to obtain. 07:04 Acuity: [place] 1 hb Historical: - Allergies: 07:05 Ibuprofen; hb 07:05 Stadol; hb 07:05 Versed; hb 07:08 Stadol; sg 07:08 Versed; sg 07:08 Motrin; - Home Meds: 07:05 acetaminophen-codeine 300-30 mg Oral tab 1 tab every 6 hours for Pain [Active]; hb amlodipine 5 mg tab 1 tab once daily [Active]; aspirin 81 mg Oral TbEC 1 tab once daily [Active]; atorvastatin 80 mg Oral tab 1 tab nightly [Active]; carvedilol 25 mg Oral tab 1 tab nightly [Active]; clopidogrel 75 mg Oral tab 1 tab once daily [Active]; cyclobenzaprine 10 mg Oral tab 1 tab every 8 hours for Muscle Spasm [Active]; docusate sodium 50 mg/5 mL Oral liqd 10 mL once daily [Active]; hydralazine 25 mg Oral tab every 8 hours for Hypertension [Active]; Levemir FlexTouch 100 unit/mL (3 mL) subcutaneous inpn 10 unit daily [Active]; multivitamin with minerals Oral 5 mL daily [Active]; Novolog 100 unit/mL Sub-Q soln twice a day [Active]; paroxetine HCl 10 mg Oral tab 1 tab once daily [Active]; Pepcid 40 mg Oral tab nightly [Active]; tramadol 50 mg Oral tab 1 tab every 6 hours for Pain [Active]; - PMHx: 07:05 Allergic rhinitis; Aphasia; constipation; Contracture; Dementia; Depression; Diabetes - hb NIDDM; DYSPHAGIA; GERD; GI Bleed; Hemiplegia/hemiparesis; High Cholesterol; Hypertension; hypotension; MRSA; UTI; Paraplegia; 07:08 CVA; J-Tube; sg - PSHx: 07:05 PEG tube insertion; hb - Immunization history:: Adult Immunizations unknown. - Social history:: Smoking status: Patient/guardian denies using tobacco. - Family history:: not pertinent. - Ebola Screening: : Patient negative for fever greater than or equal to 101.5 degrees Fahrenheit, and additional compatible Ebola Virus Disease symptoms Patient denies exposure to infectious person Patient denies travel to an Ebola-affected area in the 21 days before illness onset No symptoms or risks identified at this time. Screenin:21 Abuse screen: unable to asssess. Nutritional screening: Difficulty chewing/swallowing? sg Yes J Tube feeds. Assessment: 07:15 General: Appears distressed, unkempt, well nourished, Behavior is unresponsive. Neuro: sg Level of Consciousness is unresponsive. Cardiovascular: Heart tones S1 S2 present Capillary refill is sluggish in bilateral fingers. Cardiovascular: Edema is 2+ to left midcalf, left ankle, left foot, left toes, right midcalf, right ankle, right foot and right toes pitting to left midcalf, left ankle, left foot, left toes, right midcalf, right ankle, right foot and right toes. Respiratory: Airway is patent via oral intubation Trachea midline Respiratory effort is relaxed, assisted with BVM Breath sounds are coarse bilaterally. GI: Abdomen is round distended, Enteral feeding tube in place, clamped. Site with drainage. and dried blood noted on gauze dressing. : Blisters noted Swelling noted. EENT: No signs and/or symptoms were reported regarding the EENT system. Derm: Skin is fragile, is thin, Skin is clammy, moist, Skin is dusky, pale, Skin temperature is cold. Derm: Decubitus located on sacrum approximately 2.6 cm to 7.5 cm is stage II has macerated edges is draining moderate amount malodorous, purulent. Musculoskeletal: contractures noted BUE, BLE. 07:21 Reassessment: at bedside for insertion of central line. sg 08:45 Reassessment: at bedside with pt and pt family. sg 08:48 Reassessment: pt family request the pt remain a full code per . sg 09:00 Reassessment: blood transfusion initiated. sg 09:00 Reassessment: Patient appears in no apparent distress at this time. Patient states sg symptoms have not improved. Respiratory: Airway is patent via oral intubation Respiratory effort is assisted with Vent. Derm: Skin is dry, Skin is pale, Skin temperature is cool. 09:25 Reassessment: v/o received per to administer Dopamine IVPB, Dopamine sg infusion started. 10:00 Reassessment: orders for vasopressin, IVPB Sodium Bicarb, Zosyn 3.375. sg 10:16 Reassessment: at bedside with pt and pt family discussing POC. sg 10:25 Reassessment: Patient appears in no apparent distress at this time. a second unit of sg blood has been requesting at this time. 10:45 Reassessment: Nephrology at bedside for consult, requesting to speak with family, sg family speaking with Nephrology at this time in [facility]. 10:59 Reassessment: Patient appears in no apparent distress at this time. pt family at bedside at this time. 11:30 Reassessment: notified of pt BP, orders received for allow Vasopressin to sg infuse for 15 more mins, if no improvement change to Epinipherine drip as ordered. 11:30 Reassessment: Patient appears in no apparent distress at this time. Patient states sg symptoms have not improved. 11:40 Reassessment: adminstering 3 unit PRBC as ordered. sg 11:50 Reassessment: IV epi drip administered, vasopressin is d'c at this time. sg Vital Signs: 07:00 Pulse 77 MON; Resp 16 A; Temp 91.8(R); Pulse Ox 96% on 100% FiO2 ETT vent; sg 07:18 BP 50 / 40; sg 08:00 BP 72 / 40; Pulse 74; Resp 17 A; Pulse Ox 100% on 100% FiO2 ETT vent; sg 08:30 BP 74 / 42; Pulse 68; Resp 18; Temp 94.0(C); Pulse Ox 96% on 100% FiO2 ETT vent; sg 09:00 BP 75 / 32; Pulse 75; Resp 18; Temp 95.4; Pulse Ox 100% on 100% FiO2 ETT vent; sg 09:30 BP 77 / 47; Pulse 73; Resp 17; Temp 94.6; Pulse Ox 100% on 100% FiO2 ETT vent; Weight sg 80 kg; 10:06 BP 59 / 46; Pulse 66 MON; Resp 16 A; Pulse Ox 96% on 100% FiO2 ETT vent; sg 10:15 BP 49 / 36; Pulse 70; Resp 16; Temp 93.8; Pulse Ox 96% on 100% FiO2 ETT vent; sg 10:23 Pulse 72; Resp 16 A; Temp 93.8(C); Pulse Ox 100% on 100% FiO2 ETT vent; sg 10:26 BP 39 / 28; Pulse 71 MON; Resp 16 S; Pulse Ox 96% ; sg 10:50 BP 45 / 34; Pulse 77 MON; Resp 16 A; Temp 93.9(C); Pulse Ox 96% on 100% FiO2 ETT vent; ED Course: 07:00 Initial lab(s) drawn, by ED staff, sent to lab. Inserted saline lock: 18 gauge in left sg EJ, using aseptic technique. Blood collected. IV EJ inserted by . 07:00 First set of blood cultures drawn by ED staff. sg 07:01 EKG done, by ED staff, reviewed by Surinder Salcedo MD. em1 07:02 Patient arrived in ED. fc 07:04 Triage completed. hb 07:05 Peter Agee, RN is Primary Nurse. sg 07:06 Surinder Salcedo MD is Attending Physician. madisyn 07:21 Maintain EMS IV. Dressing intact. Site clean \T\ dry. I/O to left lower extremitiy. sg 07:21 IV I/O noted to Left Upper Extremity . sg 07:21 Patient has correct armband on for positive identification. Bed in low position. Call sg light in reach. Side rails up X2. colorman on. Pulse ox on. NIBP on. 07:21 Arm band placed on. sg 07:23 Assisted provider with central line placement. Set up central line tray. Triple lumen sg line placed in right subclavian. Line placed by Jose J Groves MD Before procedure, did Practitioner(s) obtain informed consent? No. Patient \T\ family education about procedure, CLABSI prevention and S/S of infection? No. Time-out/Briefing performed prior to start of procedure? Yes. Was handwashing/sanitizing done immediately prior to procedure? Yes. Was patient positioned to in a way to prevent air embolism? Yes. Was procedure site sterilized? Yes, with chlorhexidine. Was the site allowed to dry? Yes. Was local anesthetic and/or sedation utilized? Yes. During the procedure, did the Practitioner(s) maintain a sterile field? Yes. 07:30 NG tube insertion attempt made by me and Paola PUGA. NG tube insertions unsuccessful. sg 07:40 Attending Physician role handed off by Surinder Salcedo MD kdr 07:40 Jose J Groves MD is Attending Physician. kdr 08:00 Second set of blood cultures drawn by me. Thermoregulation: Paula blanket applied. sg 08:25 Urine collected: clean catch specimen, clear. Ledesma cath inserted, using sterile sg technique, 16 Fr., by me, balloon inflated, to gravity drainage, urine specimen collected. Patient tolerated pt intubated and unresponsive at this time. 08:46 XRAY Chest (1 view) In Process Unspecified. EDMS 10:30 Repeat lab(s) drawn. by me, sent to lab. sg 10:57 Chem 7 Sent. hb 10:57 Lactate Sent. hb 11:00 Radiology exam delayed due to pt unstable. [email or web address] 11:22 Notified ED physician of a critical lab result(s). LACTATE 14.2, K 5.9, CL 125, CO2 13, hb CREAT 6.29. 11:44 Belén Walton MD is Hospitalizing Provider. kdr 12:20 Patient admitted, IV remains in place. intact, No redness/swelling at site. sg Administered Medications: 07:45 Drug: NS 0.9% 500 ml Route: IV; Rate: bolus; Site: right subclavian; sg 08:20 Follow up: Response: No adverse reaction; IV Status: Completed infusion; IV Intake: sg 1000ml 07:48 Drug: ProTONIX 40 mg Route: IVP; Site: right subclavian; sg 08:00 Follow up: Response: No adverse reaction sg 08:00 Drug: Cefepime 1 grams Route: IVPB; Rate: 200 ml/hr; Infused Over: 30 mins; Site: right sg subclavian; 08:30 Follow up: Response: No adverse reaction; IV Status: Completed infusion sg 08:00 Drug: vancoMYCIN 1 grams Route: IVPB; Infused Over: 2 hrs; Site: right subclavian; sg 08:00 Drug: Levophed (4 mg/250 mL D5W 4 mcg/min Route: IV; Rate: calculated rate; Site: right sg subclavian; 12:25 Follow up: Response: No adverse reaction; IV Status: Infusion continued upon admission sg 08:10 Drug: Insulin Regular Human 10 units {Co-Signature: hb (Paola Lai RN).} Route: sg IVP; Site: right subclavian; 12:25 Follow up: Response: No adverse reaction sg 08:10 Drug: D50W 50 ml Route: IVP; Site: right subclavian; sg 09:00 Follow up: Response: No adverse reaction sg 08:15 Drug: Sodium Bicarbonate 1 amp Route: IVP; Site: right subclavian; sg 08:30 Follow up: Response: No adverse reaction sg 09:00 Drug: NS 0.9% 1000 ml Route: IV; Rate: 125 ml/hr; Site: right subclavian; sg 11:00 Follow up: IV Status: Order to discontinue infusion; Order to stop NS and administer sg the Sodium Bicarb drip as ordered 09:15 Drug: Albuterol 2.5 mg Route: Inhalation; sg 09:15 Drug: Calcium Gluconate 1 grams Route: IVPB; Infused Over: 60 mins; Site: left jugular; sg 10:26 Follow up: Response: No adverse reaction; IV Status: Completed infusion sg 09:40 Drug: Dopamine drip 5 mcg/kg/min - (DOPamine 400 mg, D5W 250 ml) Route: IV; Rate: sg calculated rate; Site: right subclavian; 12:25 Follow up: Response: No adverse reaction; IV Status: Infusion continued upon admission sg 11:50 Drug: Epinephrine Drip - (EPINEPHrine (PF) 4 mg, Sodium Chloride 0.9% 250 ml) Route: sg IV; Rate: calculated rate; Site: right subclavian; 12:25 Follow up: IV Status: Infusion continued upon admission Point of Care Testing: Blood Glucose: 07:02 Blood Glucose: 450 mg/dL; sg 09:55 Blood Glucose: 179 mg/dL; sg Ranges: Intake: 08:20 IV: 1000ml; Total: 1000ml. sg Outcome: 07:02 Outcome Resuscitation successful sg 07:02 critical 11:53 Decision to Hospitalize by Provider. kdr 12:25 Admitted to ICU accompanied by nurse, accompanied by tech, via stretcher, room 7, with sg chart, Report called to bedside report given to Therese PUGA 12:25 critical 12:25 Instructed on unable to instruct pt at this time 12:37 Patient left the ED. hb Signatures: Dispatcher [employer] EDPeter Crane RN RN sg Surinder Salcedo MD MD cha Rittger, Kevin, MD MD kdr Chretien, Felicia, RN Yahir Friedman em1 Paola Lai RN RN hb Garcia, Jessica j6 Paola vann
--- NOTE | 2019-01-10 11:54 | EDPHYS ---
Physician Documentation [facility] Name: Leonardo Kumari Age: 78 yrs Sex: Male : 1940 Arrival Date: 01/10/2019 Time: 07:02 Bed 3 Private MD: ED Physician Jose J Groves HPI: 01/10 07:09 This 78 yrs old Black Male presents to ER via Unassigned with complaints of CPR. madisyn 07:09 This 78 yrs old Black Male presents to ER via Unassigned with complaints of CPR. madisyn 07:09 Preceding the arrest, the patient was dyspneic. The arrest occurred at alf. madisyn Pre-hospital course: The arrest was witnessed Bystanders at the scene performed CPR. EMS care prior to arrival: initiation of ACLS, peripheral IV, intubation was successfully performed, backboard, 15 minutes elapsed prior to ACLS. It is unknown whether or not the patient has had similar symptoms in the past. Historical: - Allergies: 07:05 Ibuprofen; hb 07:05 Stadol; hb 07:05 Versed; hb 07:08 Stadol; sg 07:08 Versed; sg 07:08 Motrin; sg - Home Meds: 07:05 acetaminophen-codeine 300-30 mg Oral tab 1 tab every 6 hours for Pain [Active]; hb amlodipine 5 mg tab 1 tab once daily [Active]; aspirin 81 mg Oral TbEC 1 tab once daily [Active]; atorvastatin 80 mg Oral tab 1 tab nightly [Active]; carvedilol 25 mg Oral tab 1 tab nightly [Active]; clopidogrel 75 mg Oral tab 1 tab once daily [Active]; cyclobenzaprine 10 mg Oral tab 1 tab every 8 hours for Muscle Spasm [Active]; docusate sodium 50 mg/5 mL Oral liqd 10 mL once daily [Active]; hydralazine 25 mg Oral tab every 8 hours for Hypertension [Active]; Levemir FlexTouch 100 unit/mL (3 mL) subcutaneous inpn 10 unit daily [Active]; multivitamin with minerals Oral 5 mL daily [Active]; Novolog 100 unit/mL Sub-Q soln twice a day [Active]; paroxetine HCl 10 mg Oral tab 1 tab once daily [Active]; Pepcid 40 mg Oral tab nightly [Active]; tramadol 50 mg Oral tab 1 tab every 6 hours for Pain [Active]; - PMHx: 07:05 Allergic rhinitis; Aphasia; constipation; Contracture; Dementia; Depression; Diabetes - hb NIDDM; DYSPHAGIA; GERD; GI Bleed; Hemiplegia/hemiparesis; High Cholesterol; Hypertension; hypotension; MRSA; UTI; Paraplegia; 07:08 CVA; J-Tube; sg - PSHx: 07:05 PEG tube insertion; hb - Immunization history:: Adult Immunizations unknown. - Social history:: Smoking status: Patient/guardian denies using tobacco. - Family history:: not pertinent. - Ebola Screening: : Patient negative for fever greater than or equal to 101.5 degrees Fahrenheit, and additional compatible Ebola Virus Disease symptoms Patient denies exposure to infectious person Patient denies travel to an Ebola-affected area in the 21 days before illness onset No symptoms or risks identified at this time. ROS: 07:09 Constitutional: madisyn 07:09 Respiratory: Positive for cough, with no reported sputum, shortness of breath, at rest. 07:09 Unable to obtain ROS due to obtunded state. 07:58 Constitutional: Unobtainable kdr Exam: 07:09 Head/Face: Normocephalic, atraumatic. madisyn 07:09 Eyes: Pupils: are fixed and dilated. 07:09 Cardiovascular: Rate: normal, Rhythm: irregularly irregular, Pulses: Pulses are 2+ in bilateral radial, brachial, femoral, popliteal, posterior tibial and and dorsalis pedis arteries.. Heart sounds: normal, Edema: is not appreciated, JVD: is noted bilaterally, to 2 cm. Vital Signs: 07:00 Pulse 77 MON; Resp 16 A; Temp 91.8(R); Pulse Ox 96% on 100% FiO2 ETT vent; sg 07:18 BP 50 / 40; sg 08:00 BP 72 / 40; Pulse 74; Resp 17 A; Pulse Ox 100% on 100% FiO2 ETT vent; sg 08:30 BP 74 / 42; Pulse 68; Resp 18; Temp 94.0(C); Pulse Ox 96% on 100% FiO2 ETT vent; sg 09:00 BP 75 / 32; Pulse 75; Resp 18; Temp 95.4; Pulse Ox 100% on 100% FiO2 ETT vent; sg 09:30 BP 77 / 47; Pulse 73; Resp 17; Temp 94.6; Pulse Ox 100% on 100% FiO2 ETT vent; Weight sg 80 kg; 10:06 BP 59 / 46; Pulse 66 MON; Resp 16 A; Pulse Ox 96% on 100% FiO2 ETT vent; sg 10:15 BP 49 / 36; Pulse 70; Resp 16; Temp 93.8; Pulse Ox 96% on 100% FiO2 ETT vent; sg 10:23 Pulse 72; Resp 16 A; Temp 93.8(C); Pulse Ox 100% on 100% FiO2 ETT vent; sg 10:26 BP 39 / 28; Pulse 71 MON; Resp 16 S; Pulse Ox 96% ; sg 10:50 BP 45 / 34; Pulse 77 MON; Resp 16 A; Temp 93.9(C); Pulse Ox 96% on 100% FiO2 ETT vent; sg Procedures: 07:52 Central Line: the site was prepped with Betadine, in sterile fashion, a triple lumen kdr catheter was inserted, in the right subclavian vein, in 1 attempts. placement was verified, by CXR, by blood return, the site was dressed with Tegaderm, foam tape, using sterile technique, the patient tolerated the procedure, well. MDM: 07:06 Patient medically screened. [facility] 07:09 Data reviewed: vital signs, nurses notes, lab test result(s), EKG, radiologic studies, [facility] CT scan, plain films. 07:52 Counseling: I had a detailed discussion with the patient and/or guardian regarding: the kdr historical points, exam findings, and any diagnostic results supporting the discharge/admit diagnosis, lab results, radiology results, the need for further work-up and treatment in the hospital. 01/10 07:08 Order name: glucometer results - FOR PT WITH NO ID; Complete Time: 13:56 hb 01/10 07:09 Order name: Basic Metabolic Panel [facility] 01/10 07:09 Order name: CBC with Diff 01/10 07:09 Order name: LFT's 01/10 07:09 Order name: Magnesium 01/10 07:09 Order name: NT PRO-BNP 01/10 07:09 Order name: PT-INR [facility] 01/10 07:09 Order name: Troponin (emerg Dept Use Only) [facility] 01/10 07:09 Order name: Lipase 01/10 07:09 Order name: ABG; Complete Time: 10:36 [facility] 01/10 07:09 Order name: Blood Culture Adult (2) [facility] 01/10 07:09 Order name: Procalcitonin [facility] 01/10 07:09 Order name: Lactate; Complete Time: 07:47 [facility] 01/10 07:09 Order name: Urine Culture [facility] 01/10 07:09 Order name: Type And Screen [facility] 01/10 07:10 Order name: Basic Metabolic Panel; Complete Time: 07:47 [facility] 01/10 07:10 Order name: CBC with Automated Diff; Complete Time: 10:36 [facility] 01/10 07:10 Order name: Liver (Hepatic) Function; Complete Time: 07:47 [facility] 01/10 07:11 Order name: Magnesium; Complete Time: 07:47 [facility] 01/10 07:11 Order name: NT PRO-BNP; Complete Time: 07:47 [facility] 01/10 07:11 Order name: Protime (+INR); Complete Time: 07:47 [facility] 01/10 07:11 Order name: Troponin (Emerg Dept Use Only); Complete Time: 07:47 [facility] 01/10 07:11 Order name: Lipase; Complete Time: 07:47 [facility] 01/10 07:11 Order name: Blood Culture [facility] 01/10 07:11 Order name: Procalcitonin; Complete Time: 07:47 [facility] 01/10 07:24 Order name: Bb Add On 01/10 07:32 Order name: Packed RBC Leukored [facility] 01/10 08:57 Order name: Urine Dipstick--Ancillary (enter results); Complete Time: 10:36 01/10 09:16 Order name: Manual Differential; Complete Time: 10:36 [facility] 01/10 09:27 Order name: Sputum Culture [facility] 01/10 07:09 Order name: XRAY Chest (1 view); Complete Time: 10:36 [facility] 01/10 07:09 Order name: EKG; Complete Time: 07:11 [facility] 01/10 07:09 Order name: Cardiac monitoring; Complete Time: 09:07 [facility] 01/10 07:09 Order name: CT Head Brain wo Cont [facility] 01/10 09:26 Order name: CONS Physician Consult [facility] 01/10 09:26 Order name: CONS Physician Consult [facility] 01/10 09:27 Order name: CONS Physician Consult [facility] 01/10 09:27 Order name: Echo with Doppler EDMS 01/10 09:27 Order name: Troponin I EDMS 01/10 09:27 Order name: Troponin I EDCT 01/10 09:35 Order name: Chest Abd Pelvis Wo Con EDMS 01/10 09:56 Order name: Glucose, Ancillary Testing; Complete Time: 10:36 EDMS 01/10 10:33 Order name: Chem 7 kdr 01/10 10:39 Order name: Lactate hb 01/10 11:28 Order name: Lactate; Complete Time: 13:56 EDMS 01/10 11:29 Order name: Basic Metabolic Panel; Complete Time: 13:56 EDMS 01/10 12:27 Order name: CT; Complete Time: 13:56 EDMS 01/10 07:09 Order name: EKG - Nurse/Tech; Complete Time: 11:34 madisyn 01/10 07:09 Order name: IV Saline Lock; Complete Time: 09:07 madisyn 01/10 07:09 Order name: Labs collected and sent; Complete Time: 09:07 [facility] 01/10 07:09 Order name: O2 Per Protocol; Complete Time: 09:08 amdisyn 01/10 07:09 Order name: O2 Sat Monitoring; Complete Time: 09:08 madisyn 01/10 07:09 Order name: Urine Dipstick-Ancillary (obtain specimen); Complete Time: 09:07 madisyn 01/10 07:17 Order name: Transfuse; Complete Time: 09:06 madisyn 01/10 07:46 Order name: Misc. Order: Warm Patient: Vi; Complete Time: 08:54 kdr Administered Medications: 07:45 Drug: NS 0.9% 500 ml Route: IV; Rate: bolus; Site: right subclavian; sg 08:20 Follow up: Response: No adverse reaction; IV Status: Completed infusion; IV Intake: sg 1000ml 07:48 Drug: ProTONIX 40 mg Route: IVP; Site: right subclavian; sg 08:00 Follow up: Response: No adverse reaction sg 08:00 Drug: Cefepime 1 grams Route: IVPB; Rate: 200 ml/hr; Infused Over: 30 mins; Site: right sg subclavian; 08:30 Follow up: Response: No adverse reaction; IV Status: Completed infusion sg 08:00 Drug: vancoMYCIN 1 grams Route: IVPB; Infused Over: 2 hrs; Site: right subclavian; sg 08:00 Drug: Levophed (4 mg/250 mL D5W 4 mcg/min Route: IV; Rate: calculated rate; Site: right sg subclavian; 12:25 Follow up: Response: No adverse reaction; IV Status: Infusion continued upon admission sg 08:10 Drug: Insulin Regular Human 10 units {Co-Signature: hb (Paola Lai RN).} Route: sg IVP; Site: right subclavian; 12:25 Follow up: Response: No adverse reaction sg 08:10 Drug: D50W 50 ml Route: IVP; Site: right subclavian; sg 09:00 Follow up: Response: No adverse reaction sg 08:15 Drug: Sodium Bicarbonate 1 amp Route: IVP; Site: right subclavian; sg 08:30 Follow up: Response: No adverse reaction sg 09:00 Drug: NS 0.9% 1000 ml Route: IV; Rate: 125 ml/hr; Site: right subclavian; sg 11:00 Follow up: IV Status: Order to discontinue infusion; Order to stop NS and administer sg the Sodium Bicarb drip as ordered 09:15 Drug: Albuterol 2.5 mg Route: Inhalation; sg 09:15 Drug: Calcium Gluconate 1 grams Route: IVPB; Infused Over: 60 mins; Site: left jugular; sg 10:26 Follow up: Response: No adverse reaction; IV Status: Completed infusion sg 09:40 Drug: Dopamine drip 5 mcg/kg/min - (DOPamine 400 mg, D5W 250 ml) Route: IV; Rate: sg calculated rate; Site: right subclavian; 12:25 Follow up: Response: No adverse reaction; IV Status: Infusion continued upon admission sg 11:50 Drug: Epinephrine Drip - (EPINEPHrine (PF) 4 mg, Sodium Chloride 0.9% 250 ml) Route: sg IV; Rate: calculated rate; Site: right subclavian; 12:25 Follow up: IV Status: Infusion continued upon admission sg Point of Care Testing: Blood Glucose: 07:02 Blood Glucose: 450 mg/dL; sg 09:55 Blood Glucose: 179 mg/dL; sg Ranges: Critical Glucose Levels:Adult <50 mg/dl or >400 mg/dl <40 mg/dl or >180 mg/dl Disposition: 07:52 Critical Care:. kdr Disposition: 01/10/19 11:53 Hospitalization ordered by Belén Walton for Inpatient Admission. Preliminary diagnosis is Cardiop[ulmonary arrest, sepsis, hyperkalemia, acute on chronic renal failure, severe anemia. - Bed requested for Intensive Care Unit. - Status is Inpatient Admission. hb - Condition is Critical. - Problem is new. - Symptoms have worsened. UTI on Admission? No Critical care time excluding procedures: 07:52 Critical care time: Bedside Care: 30 minutes, Consultation: 10 minutes, Family kdr Intervention: 15 minutes. Total time: 55 minutes Signatures: Dispatcher [employer] EDCT Denise Hirsch RN Peter Hall RN RN Surinder Martines MD MD cha Rittger, Kevin, MD MD kdr Baxter, Heather, RN RN hb Heather Baxter RN hb Corrections: (The following items were deleted from the chart) 09:35 09:33 Abdomen ordered. EDCT EDMS 09:36 09:26 Thorax Wo Con ordered. [facility] EDCT 11:53 11:53 Hospitalization Ordered by Belén Walton MD for Inpatient Admission. Preliminary dw diagnosis is Cardiop[ulmonary arrest, sepsis, hyperkalemia, acute on chronic renal failure, severe anemia. Bed requested for Intensive Care Unit. Status is Inpatient Admission. Condition is Critical. Problem is new. Symptoms have worsened. UTI on Admission? No. kdr 12:37 11:53 01/10/2019 11:53 Hospitalization Ordered by Belén Walton MD for Inpatient hb Admission. Preliminary diagnosis is Cardiop[ulmonary arrest, sepsis, hyperkalemia, acute on chronic renal failure, severe anemia. Bed requested for Intensive Care Unit. Status is Inpatient Admission. Condition is Critical. Problem is new. Symptoms have worsened. UTI on Admission? No. dw
[2019-01-10] MEDS ORDERED: PIPER/TAZO/NS 2.25gm 2.25 GM/50 ML BAG IV SCH (12:00)
--- NOTE | 2019-01-10 12:25 | P.HP ---
Certification for Inpatient Patient admitted to: Inpatient With expected LOS: >2 Midnights Patient will require the following post-hospital care: None Practitioner: I am a practitioner with admitting privileges, knowledge of patient current condition, hospital course, and medical plan of care. Services: Services provided to patient in accordance with Admission requirements found in Title 42 Section 412.3 of the Code of Federal Regulations Patient History Date of Service: 01/10/19 Primary Care Provider: Melly Resident Reason for admission: cardiac arrest History of Present Illness: This is a 78-year-old male with significant past medical history of hypertension , diabetes, GI bleeding, CVA with right-sided deficit full, chronic contractures , dysphagia with PEG tube placement, who was brought over to the ED by EMS status post CPR. Most of the history has been collected from the ER physician and family members at bedside. Family member was called last night by the [place] [facility] regarding a blood sugar level of 49 and patient complaining of having shortness of breath. At that time patient was given orange juice and blood sugar was brought up. After about 2 hr family was called again for shortness of breath and blood sugar level of 46 . Patient was again given Juice and oxygen was connected. Patient then was found down and CPR was started. CPR was immediately started after that. Patient received 3 rounds of epinephrine and 1 round of bicarb in EMS. Patient was intubated as well in route. At this time it is unsure of how long the patient was down at the [place] [facility]. Patient did have return of circulation after 3 rounds of epinephrine with a heart rate of 65. Initial rhythm was asystole. Once the patient was brought to the ER patient was immediately started on Levophed along with IV fluids, antibiotics and was placed on mechanical ventilator. Patient had extensive workup done here in the ER with imaging and lab work. Imaging and lab work was consistent with sepsis, cardiopulmonary arrest, GI bleeding, acute kidney injury and un favorable prognosis. A detailed discussion was done by me at the bedside with family members in the ER for over 30-45 min regarding code status and the poor prognosis. Family however once patient to continue to be a full code and will take about the decision and let us know. Allergies butorphanol tartrate [From Stadol] Allergy (Verified 11/04/18 22:40) Unknown ibuprofen Allergy (Verified 12/04/18 23:28) unknown midazolam HCl [From Versed] Allergy (Verified 11/04/18 22:40) Unknown Home Medications: Amlodipine [Norvasc*] 0.5 tab FT DAILY 11/04/18 Aspirin Chewable [Aspirin Chewable*] 81 mg FT DAILY 11/04/18 Atorvastatin Calcium [Lipitor] 80 mg FT BEDTIME 11/04/18 Carvedilol [Coreg*] 25 mg FT BEDTIME 11/04/18 Clopidogrel Bisulfate [Plavix*] 75 mg FT DAILY 11/04/18 Docusate Sodium 100 mg FT DAILY 11/04/18 Famotidine [Pepcid] 40 mg FT BEDTIME 11/04/18 Multivit &Minerals/Ferrous Fum [Multivitamin Liquid] 5 ml FT DAILY 11/04/18 PARoxetine HCl [Paxil*] 10 mg FT DAILY 11/04/18 Tramadol HCl [Ultram] 50 mg FT Q6HP PRN 11/04/18 - Past Medical/Surgical History Diabetic: Yes -: Diabetes mellitus type 2 -: CVA with Right sided weakness Apr 2014 -: HTN -: Chronic renal disease -: Contracture to the right lower extremity -: History of UTIs, sepsis -: PEG tube in place due to malnutrition -: Depression -: GERD -: Hyperlipidemia -: PEG tube placement Psychosocial/ Personal History: Sister has power of business attorney. He currently lives at a [place] [facility]. - Family History Family History: Reviewed- Non-Contributory - Social History Alcohol use: No CD- Drugs: No Caffeine use: No Place of Residence: [facility] Review of Systems is unable to be obtained Physical Examination - Physical Exam General: Acute distress, Unresponsive, Comatose, Other (Intubated and sedated ) HEENT: Other (NON reactive pupils), Abnormal EOM Neck: JVD distended Respiratory: Diminished, Expiratory wheezes, Inspiratory wheezes, Rhonchi/ gurgles Cardiovascular: Other (weak thready pulse, Bradycardia) Gastrointestinal: Hypoactive, Distended Musculoskeletal: Swelling, Contractures, Erythema, Tenderness, Warmth Integumentary: Skin breakdown, Skin lesion, Warmth Neurological: Abnormal tone, Abnormal sensation, Abnormal cranial nerve function , Abnormal reflexes Urinary: Ledesma catheter - Studies Laboratory Data (last 24 hrs) 01/10/19 07:04: PT 15.3 H, INR 1.31 01/10/19 07:04: WBC 19.7 H, Hgb 5.0 L*, Hct 17.6 L*, Plt Count 146 L 01/10/19 07:04: Sodium 155 H, Potassium 6.3 H*, BUN 110 H, Creatinine 7.34 H*, Glucose 399 H, Magnesium 2.7 H D, Total Bilirubin 0.2, AST 56 H, ALT 28, Alkaline Phosphatase 138 H, Lipase 67 L Assessment and Plan - Problems (Diagnosis) (1) Cardiopulmonary arrest Current Visit: Yes Status: Acute Plan: Patient is status post cardiopulmonary arrest. Initial rhythm was asystole. On certain time that the patient was down for. Patient received 3 rounds of epinephrine and 1 bicarb and was intubated en route. -most likely secondary to PE versus OK versus declining chronic condition -poor prognosis at this time -currently on mechanical ventilator and sedated. -patient is currently hemodynamically unstable with low blood pressure in a map of 30-40. Is currently on 4 pressors being Levophed, vasopressin, epinephrine, dopamine. -cardiology and pulmonology were consulted at this time. -will continue with current management at this time monitor patient closely -ongoing discussion with the family regarding code status and poor prognosis. (2) Sepsis Current Visit: Yes Status: Acute Plan: Patient initially with elevated lactic acid, pro calcitonin and end-organ damage along with hemodynamic instability currently in septic shock -currently started on IV fluids with bicarb along with IV vancomycin and Zosyn -urine culture from the [place] [facility] positive for MRSA and PEG tube wound positive for E.S.BL -patient is currently on 4 pressors will continue that here in the hospital -blood culture urine culture and sputum cultures pending at this time -chest x-ray consistent with possible pneumonia -CT of the chest abdomen and pelvis is pending at this time Qualifiers: Sepsis type: sepsis due to unspecified organism Qualified Code(s): A41.9 - Sepsis, unspecified organism (3) GI bleed Current Visit: Yes Status: Acute Plan: Patient with history of GI ulcers in the past. Currently with hemoglobin of 5. [facility] stated the patient did have some melanotic stools -currently started on IV Protonix. -Receiving 3 packed RBCs as well -GI consulted. Awaiting recommendations at this time -patient is unstable for any procedures at this time -will continue to manage patient's medically at this time Qualifiers: GI bleed type/associated pathology: angiodysplasia of stomach and duodenum Qualified Code(s): K31.811 - Angiodysplasia of stomach and duodenum with bleeding (4) TONIE (acute kidney injury) Current Visit: Yes Status: Acute Plan: Patient with TONIE on chronic kidney disease stage 3. Most likely secondary to dehydration versus end-organ damage from hypoperfusion from being down for a long time -nephrology consulted. Appreciated recommendations -IV fluids at this time -patient is not stable for hemodialysis given the hypotension and requiring for pressors -will continue to monitor patient closely here in the hospital (5) Poor prognosis Current Visit: Yes Status: Acute Plan: Patient has poor prognosis given the uncertainty of the time that the patient was down for. Patient currently is hemodynamically unstable with septic shock status post cardiopulmonary arrest hypothermia acute kidney injury and GI bleeding exhibiting signs of end-organ damage and failure at this time. Detailed discussion with family member regarding code status. Still wants to continue patient to be full code. Medical power business attorney unable to make a decision at this time. States that she will need some time to think about this asked all of this happened super fast and does not want a make a decision at this time. Educated extensively regarding the poor prognosis and the need to make a decision and will follow up with patient's family in about 30-[address] is pending at this time as well. Patient does have neurological deficits at baseline however at this time. Patient's pupils are nonreactive abnormal granular refluxes are present which are all in favor of poor prognosis as well. 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 Onset Date: 01/11/17 Current Visit: No Status: Chronic (9) Diabetes mellitus Onset Date: 01/11/17 Current Visit: No Status: Chronic Qualifiers: Diabetes mellitus type: type 2 Diabetes mellitus intermediate accountant insulin use: with intermediate accountant use Diabetes mellitus complication status: with unspecified complications (10) GERD (gastroesophageal reflux disease) Onset Date: 01/11/17 Current Visit: No Status: Chronic Qualifiers: (11) History of CVA with residual deficit Onset Date: 01/11/17 Current Visit: No Status: Chronic (12) Hypertension Onset Date: 06/21/17 Current Visit: No Status: Chronic Qualifiers: Hypertension type: essential hypertension Qualified Code(s): I10 - Essential (primary) hypertension - Plan Admit patient to the ICU. Patient is very critically ill at this time with hemodynamically instability with end-organ damage and failure. Will provide care continuously here in the ICU Discharge Plan: Other Plan to discharge in: Greater than 2 days - Advance Directives Does patient have a Living Will: No Does patient have a Durable POA for Healthcare: Yes - Code Status/Comfort Care Code Status Assessed: Yes Critical Care: Yes
--- NOTE | 2019-01-10 12:26 | RAD REPORT ---
EXAM DESCRIPTION: CT - Head Brain Wo Cont - 01/10/2019 12:15 pm CLINICAL HISTORY: MENTAL STATUS CHANGE Headache, drowsiness history of CVA COMPARISON: HEAD BRAIN W O CONTRAST dated 11/25/2014; HEAD BRAIN W O CONTRAST dated 07/06/2014 TECHNIQUE: All CT scans are performed using dose optimization technique as appropriate and may inclu de automated exposure control or mA/KV adjustment according to patient size. FINDINGS: No intracranial hemorrhage, hydrocephalus or extra-axial fluid collection.Advanced brain a trophy is seen with prominent chronic microvascular ischemic changes evident.No areas of brain edema or evidence of midline shift. The paranasal sinuses and mastoids are clear. The calvarium is intact. IMPRESSION: No acute intracranial abnormality.
--- NOTE | 2019-01-10 12:38 | RAD REPORT ---
EXAM DESCRIPTION: CT - Thorax Wo Con CLINICAL HISTORY: Chest pain S/P CPR COMPARISON: THORAX WO CONTRAST dated 10/10/2014; Abdomen 1 View (KUB) dated 12/14/2018; Abdomen Pelv is W Contrast dated 11/28/2018 FINDINGS: Airspace consolidation is seen with air bronchograms in both posterior lower compatible wi th bibasilar pneumonia. Findings are more severe on the left. Areas of tree-in-bud opacity in the upp er lungs is likely related to endobronchial spread of infection. ET tube is in place with its tip abo ve the noreen. No pneumothorax. Right-sided PICC line has tip in the SVC. No axillary, mediastinal or hilar adenopathy. A few small calcified pleural plaques are seen. No disp laced rib fracture. Significant distention of bowel loops are seen in the upper abdomen, partially visualized. Pneumatosi s coli is also suspected involving several of the right-sided distended bowel loops. Visualization an d assessment is suboptimal due to lack of contrast material. All CT scans are performed using dose optimization technique as appropriate and may include automated exposure control or mA/KV adjustment according to patient size. IMPRESSION: Large airspace opacities in both posterior lung bases likely represent pneumonia.ET tube tip is above the noreen. Partially visualized distended bowel loops in the upper abdomen with evidence of pneumatosis coli. Ad vise clinical correlation for possible ischemic bowel symptomology.
[2019-01-10] MEDS ORDERED: ONDANSETRON 4 MG/2 ML VIAL IV PRN (13:09)
[2019-01-10] MEDS ORDERED: PROPOFOL 1,000 MG/100 ML VIAL IV PRN (13:12)
[2019-01-10] MEDS ORDERED: LORazepam 2 MG/ML VIAL IV PRN (13:12)
[2019-01-10] MEDS ORDERED: FENTANYL CITR 100 MCG/2 ML IV PRN (13:12)
[2019-01-10 13:16] VITALS: O2SAT 96
[2019-01-10 13:17] VITALS: TEMP 93.9
[2019-01-10] MEDS ORDERED: NOREPINEPHRINE 8 MG in Dextrose 5%-Water 500 ML IV PRN (13:18)
[2019-01-10] MEDS ORDERED: D5W 1,000 ML with NA BICARB 8.4% 100 MEQ IV SCH ×2 (13:30)
[2019-01-10] MEDS ORDERED: WATER FOR INJ,STERILE 10 ML IV SCH ×2 (14:00)
[2019-01-10] MEDS ORDERED: HYDROCORTISONE SUC 100 MG INJ IV SCH (14:00)
[2019-01-10 15:05] VITALS: BP 57/18
[2019-01-10 16:02] VITALS: BMI 25.2
[2019-01-10] MEDS ORDERED: INSULIN -REGULAR HUMAN 50 UNIT/0.5 ML ML SQ SCH (18:00)
--- NOTE | 2019-01-10 22:49 | CON ---
Reason For Consultation: Consultation called because of patient being unresponsive after cardiac arr est and cardiopulmonary resuscitation. History Of Present Illness: Mr. Kumari is a 78-year-old patient, who has hyperten cherry, diabetes mellitus, recent GI bleed and stroke with right-sided deficits, who was brought in aft er multiple episodes of resuscitation following cardiopulmonary arrest. He had 3 rounds of epinephri ne and 1 round of bicarbonate, at resuscitation, he had asystole and his pH was 7.1. Since intubatio n on admission to the ICU, the patient has had fixed dilated pupils. He has been unresponsive to bryan bal and tactile stimulation. He does not breathe over his ventilator. Past Medical History: As indicated above. In addition, he has had dysplasia. Surgical History: Had PEG tube placement. Allergies: BUTORPHANOL, IBUPROFEN, MIDAZOLAM. Home Medications: Norvasc, aspirin, atorvastatin, Coreg, Plavix, docusate, Pepcid, multivitamin, [place], and tramadol. Social History: The patient resides in a jail and the sister is the power of tax attorney. Family History: Noncontributory. Review of Systems: Not possible. Physical Examination: Vital Signs: Blood pressure is 157/80, pulse of 68, respiratory rate, not breathing over the ventila tor. Saturation 96%. General: Mr. Kumari is intubated and has a warming blanket. He has no spontaneous respirations on his own, does not react to tactile and verbal stimulation. His pupils are fixed and dilated. He hoskins s no dolls eyes response. No response to noxious stimulation in the sternal area, the uncal region a nd supraorbital regions. He has normal tone. Laboratory Studies: Have been reviewed showing multi-organ failure including severe anemia with hemo globin of 5.0, renal failure with creatinine of 6.29, sepsis with lactic acid of 14.2 and procalciton in of 6.05. His head CT scan does not show acute ischemic or hemorrhagic change. No evidence yet of swelling, which is likely early. Assessment: Mr. Kumari is a 78-year-old patient, who has no brain activity and is brain . The patient is supported on the ventilators and the family was brought in and the patient's terminal con dition was discussed with them and they plan to remove his ventilatory support and let him francisca urally. No further workup is indicated. LB/MODL Voice ID: [id number] Report ID: [id number]
[2019-01-12] MEDS ORDERED: VANCOMYCIN 1 GM in NA CHLORIDE 0.9% 250 ML IVPB SCH (08:00)
== END 2019-01-10 15:03 | disposition expired | DRG 871 ==
LOC: ER 06:59 → ERHOLD 09:24 → 3RD-ICU 11:56
PROVIDERS: ADMIT Family Medicine; ATTEND Family Medicine
PROC: 5A1935Z Respiratory Ventilation, Less than 24 Consecutive Hours (ICD-10-PCS; principal; 2019-01-10)
PROC: 30233N1 Transfusion of Nonautologous Red Blood Cells into Peripheral Vein, Percutaneous Approach (ICD-10-PCS; 2019-01-10)
DX: A41.9 Sepsis, unspecified organism (principal); R65.21 Severe sepsis with septic shock; K55.21 Angiodysplasia of colon with hemorrhage; R53.2 Functional quadriplegia; N17.9 Acute kidney failure, unspecified; E87.0 Hyperosmolality and hypernatremia; I69.351 Hemiplegia and hemiparesis following cerebral infarction affecting right dominant side; G93.1 Anoxic brain damage, not elsewhere classified; E86.0 Dehydration; I12.9 Hypertensive chronic kidney disease with stage 1 through stage 4 chronic kidney disease, or unspecified chronic kidney disease; E11.22 Type 2 diabetes mellitus with diabetic chronic kidney disease; N18.3 Chronic kidney disease, stage 3 (moderate); Z93.1 Gastrostomy status; M24.50 Contracture, unspecified joint; K21.9 Gastro-esophageal reflux disease without esophagitis; R13.10 Dysphagia, unspecified; D64.9 Anemia, unspecified; E87.5 Hyperkalemia
CPT/HCPCS: 36415; 51702; 70450; 71045; 71250; 80048; 80076; 81003; 82805; 82962; 83605; 83690; 83735; 83880; 84145; 84484; 85025; 85610; 86850; 86900; 86901; 87040; 87086; 87088; 87205; 92950; 93005; 94002; 99291; 99292; C9113; J0171; J0610; J0692; J1265; J1720; J3370; J7030; J7060; P9016